=== PATIENT | male | born 1965 | race African-American/Black ===

== ENCOUNTER 2020-01-24 14:58 | Inpatient (IN) | payer OTHER ==
[~2020-01-24] VITALS: Ht 177.8 cm; Wt 90.7 kg
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
[2020-01-24 15:33] LABS: BASOPHILS # (AUTO) 0.1 (0.0-0.1); BASOPHILS % 0.6 % (0.0-1.0); EOSINOPHILS # (AUTO) 0.5 (0.0-0.4); EOSINOPHILS % 2.4 % (0.0-6.0); HEMATOCRIT 25.4 % (38.2-49.6); HEMOGLOBIN 7.4 g/dL (14.0-18.0); LYMPHOCYTES # (AUTO) 2.4 (1.0-3.2); LYMPHOCYTES % 11.5 % (18.0-39.1); MEAN CORPUSCULAR HEMOGLOBIN 27.2 pg (28-32); MEAN CORPUSCULAR HGB CONC 29.1 g/dL (31-35); MEAN CORPUSCULAR VOLUME 93.4 fL (81-99); MONOCYTES # (AUTO) 2.1 (0.2-0.8); MONOCYTES % 9.9 % (4.4-11.3); NEUTROPHILS # (AUTO) 15.7 (2.1-6.9); NEUTROPHILS % 73.9 % (38.7-80.0); PLATELET COUNT 794 x10e3/uL (140-360); RED BLOOD COUNT 2.72 x10e6/uL (4.3-5.7); RED CELL DISTRIBUTION WIDTH 15.4 % (11.7-14.4)
--- NOTE | 2020-01-24 15:49 | NUR ---
Patient unable to provide information because he is unable to speak which is his baseline. Nurse called the dialysis center and spoke to the nurse who had him today and she gave me the name of the facility the patient is from which is [facility] at [phone]. Nurse called [facility] and spoke with the patient's nurse there who informed me that what we are seeing in the patient objectively is his baseline and went on to say that they were not even aware of the patient's appointment at the surgery center today for the dialysis access change. They provided an emergency contact number as well for ronan Rodgers [phone]. Nurse called the emergency contact but did not receive an answer.
[2020-01-24 15:52] LABS: ALBUMIN 2.2 g/dL (3.5-5.0); ALBUMIN/GLOBULIN RATIO 0.5 (0.8-2.0); CALCIUM 10.6 mg/dL (8.4-10.2); CREATININE, SERUM 3.72 mg/dL (0.72-1.25)
--- NOTE | 2020-01-24 16:04 | Diagnostic Imaging Report ---
EXAMINATION: CHEST SINGLE (PORTABLE) INDICATION: Altered mental status COMPARISON: None FINDINGS: LINES/TUBES:Right IJ tunneled hemodialysis catheter terminates in the right atrium. EKG leads overlie the chest. LUNGS:The lungs are moderately inflated. Patchy opacities at the left midlung and both lung bases. There is perihilar fullness and indistinctness of the pulmonary vasculature. PLEURA:No pleural effusion or pneumothorax. MEDIASTINUM:The cardiomediastinal silhouette appears normal in size and shape. BONES/SOFT TISSUES:No acute osseous injury. ABDOMEN:No free air under the diaphragm. IMPRESSION: Central pulmonary vascular congestion and patchy opacities at both lung bases and at the left midlung can be seen with volume overload, however atypical pneumonitis could also have this appearance and should be excluded clinically. Signed by: Alex Lopez MD on 01/24/2020 4:00 PM
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
[2020-01-24] MEDS ORDERED: PIPER-TAZ 3.375 GM 50 ML IV STA (17:00)
[2020-01-24] MEDS ORDERED: VANCOMYCIN 1GM/NS 250 ML 250 ML IV ONE (18:00)
[2020-01-24] MEDS ORDERED: ACETAMINOPHEN 325 MG TAB PO PRN (20:45)
[2020-01-24] MEDS ORDERED: METOPROLOL TARTRATE INJ 1 MG/ML VIAL IV PRN (20:45)
[2020-01-24] MEDS ORDERED: POLYETHYLENE GLYCOL 3350 17 GM PACK PO PRN (20:45)
[2020-01-24] MEDS ORDERED: ONDANSETRON HCL INJ 2MG/ML 2ML 2 MG/ML VIAL IV PRN (20:45)
[2020-01-24] MEDS ORDERED: SOD CHL 0.45%/POT CHL 20MEQ 1,000 ML IV ONE (21:15)
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
[2020-01-24] MEDS: MEROPENEM 1GM 100 ML IV SCH (23:51)
[2020-01-25 05:38] LABS: BASOPHILS # (AUTO) 0.1 (0.0-0.1); BASOPHILS % 0.8 % (0.0-1.0); EOSINOPHILS # (AUTO) 0.6 (0.0-0.4); EOSINOPHILS % 3.5 % (0.0-6.0); HEMATOCRIT 23.7 % (38.2-49.6); LYMPHOCYTES # (AUTO) 3.1 (1.0-3.2); LYMPHOCYTES % 16.7 % (18.0-39.1); MEAN CORPUSCULAR HEMOGLOBIN 26.9 pg (28-32); MEAN CORPUSCULAR HGB CONC 28.7 g/dL (31-35); MEAN CORPUSCULAR VOLUME 93.7 fL (81-99); MONOCYTES # (AUTO) 1.8 (0.2-0.8); MONOCYTES % 9.6 % (4.4-11.3); NEUTROPHILS # (AUTO) 12.4 (2.1-6.9); NEUTROPHILS % 67.6 % (38.7-80.0); PLATELET COUNT 791 x10e3/uL (140-360); RED BLOOD COUNT 2.53 x10e6/uL (4.3-5.7); RED CELL DISTRIBUTION WIDTH 15.6 % (11.7-14.4)
[2020-01-25 06:04] LABS: ALBUMIN 2.1 g/dL (3.5-5.0); ALBUMIN/GLOBULIN RATIO 0.5 (0.8-2.0); ANION GAP 16.5 mmol/L (8-16); CALCIUM 10.5 mg/dL (8.4-10.2); CREATININE, SERUM 4.91 mg/dL (0.72-1.25); POTASSIUM 3.5 mmol/L (3.5-5.1)
[2020-01-25 06:05] LABS: CHOL/HDL RATIO 4.8 (3.9-4.7); PHOSPHORUS 3.2 MG/DL (2.3-4.7)
[2020-01-25 06:20] LABS: HEMOGLOBIN 6.8 g/dL (14.0-18.0)
[2020-01-25 06:25] LABS: THYROID STIMULATING HORMONE 1.198 uIU/mL (0.350-4.940)
--- NOTE | 2020-01-25 07:02 | NUR ---
Report received from BIRD Gray
[2020-01-25 08:29] LABS: ANISOCYTOSIS SLIGHT; EOSINOPHILS % (MANUAL) 1 % (0-7); LYMPHOCYTES % (MANUAL) 16 % (19-48); MONOCYTES % (MANUAL) 7 % (3.4-9.0); NEUTROPHILS % (MANUAL) 76 % (40-74); POLYCHROMASIA FEW
[2020-01-25 08:30] LABS: HYPOCHROMASIA SLIGHT; PLATELET ESTIMATE MODERATELY INCREASED; PLATELET MORPHOLOGY COMMENT FEW EDTA CLUMPING; RBC MORPHOLOGY COMMENT ABNORMAL
[2020-01-25 08:31] LABS: POIKILOCYTOSIS SLIGHT
--- NOTE | 2020-01-25 09:03 | NUR ---
CALLED FOR UPDATE AND RICHARD REEVESSPOKE WITH .
[2020-01-25] MEDS: FAMOTIDINE 20 MG/2 ML VIAL IV SCH ×2 (09:50→17:29)
[2020-01-25] MEDS: DOCUSATE SODIUM 100 MG CAP PO SCH ×2 (09:50→17:29)
[2020-01-25] MEDS: MEROPENEM 1GM 100 ML IV SCH ×2 (11:47→22:50)
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
--- NOTE | 2020-01-25 17:11 | Diagnostic Imaging Report ---
EXAMINATION: Renal ultrasound. CLINICAL HISTORY :Acute renal failure COMPARISON: <None available.> TECHNIQUE: Grayscale and color Doppler evaluation of the kidneys and bladder was performed in transverse and longitudinal planes. DISCUSSION: RIGHT KIDNEY: The right kidney measures 7 cm in length and shows increased echogenicity. No hydronephrosis, shadowing calculi or solid mass lesions. LEFT KIDNEY: The left kidney measures 7.7 cm in length and shows increased echogenicity. No hydronephrosis, shadowing calculi or solid mass lesions. BLADDER: Unremarkable. IMPRESSION: 1. Atrophic kidneys with increased echogenicity secondary to chronic medical renal disease. No obstruction. Signed by: Dr. Vlad Cabrera M.D. on 01/25/2020 5:07 PM
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
[2020-01-25 19:30] VITALS: BP 145/71
[2020-01-25 20:00] VITALS: BP 145/71
[2020-01-25] MEDS ORDERED: FAMOTIDINE20 MG PO (20:05)
[2020-01-25] MEDS ORDERED: HYDRALAZINE HCL10 MG PO (20:05)
[2020-01-25] MEDS ORDERED: CLOPIDOGREL75 MG PO (20:05)
[2020-01-25] MEDS ORDERED: CALCIUM CARBON500 MG PO (20:05)
[2020-01-25] MEDS ORDERED: PREDNISONE20 MG PO (20:05)
[2020-01-25] MEDS ORDERED: CARVEDILOL12.5 MG PO (20:05)
[2020-01-25] MEDS ORDERED: POLYETHYLENE GL17 GM PO (20:05)
[2020-01-25] MEDS ORDERED: ALPRAZOLAM0.5 MG PO (20:05)
[2020-01-25] MEDS ORDERED: CALCIUM ACETAT667 M1 PO (20:05)
[2020-01-25] MEDS ORDERED: XIFAXAN550 MG PO (20:05)
[2020-01-25] MEDS ORDERED: ULTRAM50 MG PO (20:05)
[2020-01-25] MEDS ORDERED: RISPERIDONE0.5 MG PO (20:05)
[2020-01-25] MEDS ORDERED: NIFEDIPINE ER60 M1 PO (20:05)
[2020-01-25] MEDS ORDERED: LACTULOSE20 GM/30 M PO (20:05)
[2020-01-25 22:27] VITALS: BP 145/71
[2020-01-25] MEDS ORDERED: SODIUM CHLORIDE 0.9% 250ML 250 ML ONE (22:47)
[2020-01-26] VITALS (9 sets, daily range): BP systolic 113–149; BP diastolic 72–90
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
[2020-01-26 05:00] LABS: BASOPHILS # (AUTO) 0.1 (0.0-0.1); BASOPHILS % 0.8 % (0.0-1.0); EOSINOPHILS # (AUTO) 0.6 (0.0-0.4); EOSINOPHILS % 3.5 % (0.0-6.0); HEMATOCRIT 24.1 % (38.2-49.6); LYMPHOCYTES # (AUTO) 2.8 (1.0-3.2); LYMPHOCYTES % 16.9 % (18.0-39.1); MEAN CORPUSCULAR HEMOGLOBIN 26.9 pg (28-32); MEAN CORPUSCULAR VOLUME 92.7 fL (81-99); MONOCYTES % 11.8 % (4.4-11.3); NEUTROPHILS # (AUTO) 10.9 (2.1-6.9); NEUTROPHILS % 65.1 % (38.7-80.0); PLATELET COUNT 951 x10e3/uL (140-360); RED CELL DISTRIBUTION WIDTH 15.6 % (11.7-14.4)
[2020-01-26 05:13] LABS: ANION GAP 17.3 mmol/L (8-16); CALCIUM 10.3 mg/dL (8.4-10.2); CREATININE, SERUM 6.85 mg/dL (0.72-1.25); POTASSIUM 3.3 mmol/L (3.5-5.1)
--- NOTE | 2020-01-26 06:11 | NUR ---
SPOKE WITH JESIKA BRENNAN, PATIENT'S SISTER AND NEXT OF KIN. STATED THAT PATIENT DID NOT GET DIALYSIS ACCESS CHANGED AT SURGERY CENTER WEDNESDAY. STATED THAT THIS PROCEDURE HAS BEEN DELAYED TWICE DUE TO ELEVATED WBCS. PATIENT DOES STILL RECEIVE DIALYSIS THROUGH THE TUNNELED CATHETER IN R CHEST. STATED PATIENT HAS HAD PNEUMONIA PREVIOUSLY, UNSURE IF PATIENT RECOVERED OR IF THIS PNEUMONIA IS THE SAME HE HAS HAD.
--- NOTE | 2020-01-26 07:10 | NUR ---
RCD PT AT BED PT IS NOT ALERT AND NOT ORIENTED RESTING ON BED IV PATENT BY SALINE FLUSH CHANGED POSITION ON RT SIDE BED LOW AND LOCKED CALL LIGHT IN REACH
[2020-01-26] MEDS: DOCUSATE SODIUM 100 MG CAP PO SCH ×2 (09:00→16:27)
[2020-01-26] MEDS: FAMOTIDINE 20 MG/2 ML VIAL IV SCH ×2 (09:00→16:27)
[2020-01-26 09:53] LABS: HYPOCHROMASIA SLIGHT
[2020-01-26 09:54] LABS: PLATELET ESTIMATE MARKEDLY INCREASED
[2020-01-26 09:55] LABS: PLATELET MORPHOLOGY COMMENT FEW LARGE
[2020-01-26] MEDS: MEROPENEM 1GM 100 ML IV SCH ×2 (10:48→22:10)
--- NOTE | 2020-01-26 13:20 | NUR ---
HARDY AND TALKED TO GEE IN [facility] REGARDING HEMODIALYSIS SHE SAID THEY WILL ARRANGE SOME ONE TODAY
--- NOTE | 2020-01-26 13:25 | NUR ---
PAGED HIS SISTER TO GET THE TELEPHONE CONSENT FOR DIALYSIS
--- NOTE | 2020-01-26 14:35 | NUR ---
SPEECH THERAPIST TALKED PRINCE BARNES REGARDING BED SIDE SPEECH REPORT GOT THE ORDER TO MBS
[2020-01-26 14:53] LABS: INR 0.97; PROTHROMBIN TIME 13.4 seconds (11.9-14.5)
--- NOTE | 2020-01-26 15:00 | NUR ---
BED SIDE SPEECH AND MBS DONE HE PASSED BOTH TEST
--- NOTE | 2020-01-26 16:05 | Progress Note ---
DATE: Nephrology Progress Note SUBJECTIVE: The patient had a right tunneled dialysis catheter in place in the chest wall. The patient was chronically on end-stage renal disease, on dialysis. The patient will receive dialysis today and after further discussion with the nursing staff, the patient was going Wednesday, Wednesday, Wednesday, which I was not aware of yesterday. PHYSICAL EXAMINATION: VITAL SIGNS: Temperature is 98.6, pulse 93, respiratory rate is 20, blood pressure 135/72, and pulse ox 98% on room air. GENERAL: Not in acute distress. He is not responsive at baseline. CARDIOVASCULAR: Positive S1 and S2. No murmurs, rubs, or gallops appreciated. ABDOMEN: Soft, nondistended, and nontender to palpation. Bowel sounds present. MUSCULOSKELETAL: Unable to assess. PULMONARY: Clear to auscultation bilaterally. No wheezing, no rales, no rhonchi, no crackles appreciated. EXTREMITIES: No edema. Good range of motion throughout. LABORATORY FINDINGS: Show white count was 16.7, hemoglobin was 7, hematocrit was 24, and platelets of 951. Coagulation; PT and INR are pending. Chemistry; sodium is 143, potassium 3.3, chloride 101, bicarb 20, anion gap of 17, BUN is 26, and creatinine is 6.85. Hemoglobin A1c was 4.2. Calcium was 10.3. The albumin is 2.1. Corrected calcium is approximately 12. Coronavirus is pending. MICROBIOLOGY: Blood cultures no growth to date. DIAGNOSTIC STUDIES: Renal ultrasound shows significant atrophy in the right and left kidney. IMPRESSION: 1. End-stage renal disease, on hemodialysis, Wednesday, Wednesday, Wednesday. 2. Anemia of end-stage renal disease. 3. Secondary hyperparathyroidism. 4. Severe sepsis, concerns for underlying aspiration pneumonia. PLAN: At this time from a renal standpoint, the patient will receive dialysis today. I did notify the nursing staff to call the dialysis nursing staff for orders. The patient will likely end up on a 3K, 2 calcium bath. Ultrafiltration approximately 2 to 3 L, duration 3 hours. We will continue with same plan of care and monitor with the rest of the team. We can potentially get blood transfusion during HD today once it is available. MD TOMMY Dixon/MITCHELLL /[id number]
[2020-01-26] MEDS ORDERED: SODIUM CHLORIDE 0.9% 1000ML 2,000 ML ONE (17:22)
[2020-01-26] MEDS ORDERED: HEPARIN SOD (PORCINE) 1000 UNIT/ML SDV IV PRN (18:00)
[2020-01-26] MEDS ORDERED: SODIUM CHLORIDE 0.9% 1000ML 2,000 ML IV PRN (18:00)
--- NOTE | 2020-01-26 18:00 | NUR ---
PATIENT RESTLESS AND TRYING TO PULL OUT THE DIALYSIS CATHETER PAGE AND NOTIFIED PRINCE BARNES GOT NEW ORDERS
[2020-01-26] MEDS: LORAZEPAM INJ 2 MG/ML VIAL IV ONE ×2 (18:25→18:40)
--- NOTE | 2020-01-26 18:45 | NUR ---
AC TO DR GREENBERG STOPPED DIALYSIS BECAUSE PT RESTLESS
--- NOTE | 2020-01-26 18:51 | NUR ---
PT RESTING ON BED BED SIDE REPORT GIVEN TO ONCOMING NURSE
--- NOTE | 2020-01-26 19:20 | NUR ---
Patient visited in room. Pt is alert and oriented x0 at this time. Pt is aphasic and only moans when being turned in bed. Pt has contracted bilateral hands and keeps attempting to remove dressing on dialysis catheter on right upper chest. Matthew (Dialysis) nurse has informed that he cannot do dialysis tonight due to patient's confused state. Matthew has spoken with Dr. Rodas and received authorization to do dialysis tomorrow (01/27/20) instead. [facility] was called by Matthew to re-schedule dialysis.
--- NOTE | 2020-01-26 19:30 | NUR ---
Nurse (Nicko) spoke with Papa Luna ([employer] MANAGER for Dr. Win) on the unit and informed of patient's confused behavior and that patient attempts to pull out dialysis catheter. Papa authorized Sitter care for patient. Real Estate Utilization Officer (Kimmy) and CN (Mckayla) aware.
--- NOTE | 2020-01-26 19:45 | NUR ---
Suzette REED) was selected by HS to stay with patient in room for 1:1 sitter care.
--- NOTE | 2020-01-26 22:19 | NUR ---
Pt given bed bath. Diaper changed due to bowel movement. Linens were changed too.
[2020-01-27] VITALS (9 sets, daily range): BP systolic 107–155; BP diastolic 63–93
[2020-01-27 06:04] LABS: BASOPHILS # (AUTO) 0.1 (0.0-0.1); BASOPHILS % 0.8 % (0.0-1.0); EOSINOPHILS # (AUTO) 0.5 (0.0-0.4); LYMPHOCYTES # (AUTO) 2.7 (1.0-3.2); MEAN CORPUSCULAR HEMOGLOBIN 27.3 pg (28-32); MEAN CORPUSCULAR HGB CONC 29.2 g/dL (31-35); MEAN CORPUSCULAR VOLUME 93.4 fL (81-99); MONOCYTES # (AUTO) 2.2 (0.2-0.8); MONOCYTES % 13.3 % (4.4-11.3); NEUTROPHILS % 65.8 % (38.7-80.0); PLATELET COUNT 1021 x10e3/uL (140-360); RED BLOOD COUNT 2.42 x10e6/uL (4.3-5.7); RED CELL DISTRIBUTION WIDTH 15.4 % (11.7-14.4)
[2020-01-27 06:25] LABS: HEMATOCRIT 22.6 % (38.2-49.6); HEMOGLOBIN 6.6 g/dL (14.0-18.0)
[2020-01-27 06:31] LABS: ANION GAP 17.5 mmol/L (8-16); CALCIUM 10.1 mg/dL (8.4-10.2); CREATININE, SERUM 8.24 mg/dL (0.72-1.25); POTASSIUM 3.5 mmol/L (3.5-5.1)
--- NOTE | 2020-01-27 06:40 | NUR ---
Called and informed Rhonda Chowdhury (CAMERON) about Hgb of 6.0 this morning. Rhonda aware and suggested to notify renal MD about Hgb.
--- NOTE | 2020-01-27 07:00 | NUR ---
RCD PT AT BED PT IS NOT ALERT AND NOT ORIENTED 1;1 SITTER WITH PATIENT RESTING ON BED IV PATENT BY SALINE FLUSH CHANGED POSITION ON RT SIDE BED LOW AND LOCKED CALL LIGHT IN REACH
--- NOTE | 2020-01-27 07:14 | NUR ---
PAGED DR GREENBERG AND NOTIFIED THE HH LEVEL GOT THE ORDER 2 UNITS TRANSFUSION WITH DIALYSIS
[2020-01-27] MEDS ORDERED: SODIUM CHLORIDE 0.9% 250ML 250 ML IV ONE (07:15)
[2020-01-27] MEDS: DOCUSATE SODIUM 100 MG CAP PO SCH ×2 (09:00→16:52)
[2020-01-27] MEDS: FAMOTIDINE 20 MG/2 ML VIAL IV SCH ×2 (09:00→16:52)
[2020-01-27] MEDS: MEROPENEM 1GM 100 ML IV SCH ×2 (11:00→23:33)
--- NOTE | 2020-01-27 12:30 | NUR ---
2 UNITS OF BLOOD TRANSFUSED DURING DIALYSIS
--- NOTE | 2020-01-27 13:31 | NUR ---
DIALYSIS DONE AND REMOVED 1.8 LTRS
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
--- NOTE | 2020-01-27 16:50 | Progress Note ---
DATE: 01/27/2020 Nephrology Progress Note SUBJECTIVE: The patient had HD today. No overnight events. OBJECTIVE: VITAL SIGNS: Temperature 99, pulse 92, respiratory rate 20, blood pressure 115/63, pulse ox 93% on room air. GENERAL: He is not in acute distress. He is not oriented. Does not speak at all. PULMONARY: Clear to auscultation bilaterally. No wheezing, rales, or rhonchi. No crackles appreciated. CARDIOVASCULAR: Positive S1, S2. No murmurs, rubs, or gallops appreciated. ABDOMEN: Soft, nondistended, and nontender to palpation. Bowel sounds present. MUSCULOSKELETAL: Unable to assess. NEUROLOGIC: Unable to assess. SKIN: Intact, warm to touch. Good cap refill. PSYCHIATRIC: He is at his baseline. He is demented and does not speak. EXTREMITIES: No edema appreciated. LABORATORY FINDINGS: White count was 16.7, hemoglobin 6.6, hematocrit 22.6, platelets of 1021. Chemistry; sodium 140, potassium 3.5, chloride 101, bicarb 25, anion gap of 17, BUN is 33, creatinine is 8.2, and glucose is 74. Blood cultures, no growth. IMPRESSION: 1. End-stage renal disease, on hemodialysis, Krqthc-Ntutkvezz-Gibrad. 2. Anemia of end-stage renal disease. 3. Secondary hyperparathyroidism. 4. Severe sepsis, concerns for underlying aspiration pneumonia. PLAN: At this time, the patient did not have dialysis yesterday, but will get dialysis today in which he was already completed. Two units of packed RBCs have been ordered. 3K bath, 2 calcium bath due to elevated calcium. We will monitor very closely. Blood transfusion given today. MD TOMMY Dixon/MODL /[id number]
--- NOTE | 2020-01-27 18:47 | NUR ---
PT RESTING ON BED 1;1 SITTER WITH PATIENT BED SIDE REPORT GIVEN TO ONCOMING NURSE
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
[2020-01-27] MEDS ORDERED: HEPARIN SOD (PORCINE) 1000 UNIT/ML SDV IV PRN (19:45)
[2020-01-27] MEDS ORDERED: SODIUM CHLORIDE 0.9% 1000ML 2,000 ML IV PRN (19:45)
--- NOTE | 2020-01-27 20:05 | NUR ---
PATIENT RESTING IN BED IN STABLE CONDITION, NO SIGNS OF DISTRESS NOTED. 1:1 SITTER IS AT BEDSIDE AND PATIENT WAS TURNED. BED IS IN LOWEST POSITION, BOTH SIDE RAILS ARE UP, WILL CONTINUE TO MONITOR.
[2020-01-28] VITALS (8 sets, daily range): BP systolic 93–140; BP diastolic 72–84
[2020-01-28] MEDS: TEMAZEPAM 15 MG CAP PO PRN ×2 (02:41→23:30)
--- NOTE | 2020-01-28 03:36 | NUR ---
WHEN SITTER STARTED VITALS, PATIENT'S SATURATION WAS LOW AND WAS PUT ON NASAL CANNULA AT 3 LITERS. PATIENTS O2 SAT NOW AT 100%, CONTINUING TO MONITOR.
--- NOTE | 2020-01-28 07:00 | NUR ---
RCD PT AT BED PT IS NOT ALERT AND NOT ORIENTED 1;1 SITTER WITH PATIENT RESTING ON BED NO IV ACCESS FOR THE PT PT PULL THE IV OUT IV CHANGED POSITION ON RT SIDE BED LOW AND LOCKED CALL LIGHT IN REACH
--- NOTE | 2020-01-28 07:30 | NUR ---
charge nurse and er nurse tried to start iv line they cannot make it
--- NOTE | 2020-01-28 07:45 | NUR ---
NOTIFIED PRINCE BARNES TO THE IV PROBLEM HE SAID NOTIFY DR GREENBERG SINCE HE IS DIALYSIS PT
[2020-01-28 07:47] LABS: HEMATOCRIT 33.9 % (38.2-49.6); HEMOGLOBIN 10.4 g/dL (14.0-18.0)
--- NOTE | 2020-01-28 07:50 | NUR ---
PAGED AND NOTIFIED DR GREENBERG GOT THE ORDER FOR CENTRAL LINE
[2020-01-28] MEDS: FAMOTIDINE 20 MG/2 ML VIAL IV SCH ×2 (09:00→16:57)
[2020-01-28] MEDS: DOCUSATE SODIUM 100 MG CAP PO SCH ×2 (09:00→16:57)
--- NOTE | 2020-01-28 09:30 | NUR ---
GOT THE TELEPHONE CONSENT FOR THE CENTRAL LINE FROM HIS SISTER JESIKA BRENNAN
[2020-01-28] MEDS: MEROPENEM 1GM 100 ML IV SCH ×2 (11:00→22:55)
--- NOTE | 2020-01-28 11:21 | NUR ---
PT WENT TO PROCEDURE IN SAFE CONDITION
--- NOTE | 2020-01-28 12:25 | NUR ---
PT BACK ,THEY CANNOT MAKE THE LINE PLACEMENT
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
--- NOTE | 2020-01-28 12:50 | NUR ---
PAGED DR GREENBERG AND NOTIFIED THEY UNABLE TO MAKE THE CENTRAL LINE PLACEMENT GOT THE NEW ORDER TO MIDLINE PLACEMENT
--- NOTE | 2020-01-28 13:00 | NUR ---
PAGED AND NOTIFIED HIS SISTER JESIKA BRENNAN REGARDING MIDLINE PLACEMENT
--- NOTE | 2020-01-28 14:08 | Progress Note ---
DATE: SUBJECTIVE: Mr. Maxwell is stable. There are no new complaints. PHYSICAL EXAMINATION: GENERAL: He is currently alert. VITAL SIGNS: Stable, afebrile. HEENT: He is not icteric. NECK: Supple. CHEST: Clear. HEART: S1 and S2. ABDOMEN: Soft. IMPRESSION AND PLAN: 1. Renal failure, sepsis on admission, seems significantly better. Blood cultures are negative. White count remains elevated at 16.7. 2. Anemia status post transfusion. Recommendation to recheck CBC. Recheck Chem panel. 3. Chronic kidney disease. CT of abdomen and pelvis with oral contrast only is still pending. MD ANGELICA Chamberlain/MODL /[id number]
--- NOTE | 2020-01-28 17:00 | NUR ---
PT WAITING FOR MIDLINE PLACEMENT ,TALKED TO RADIOLOGY THEY SAID THE TEAM COMING TO DO THAT
--- NOTE | 2020-01-28 18:39 | NUR ---
PT STILL AGITATED 1;1 SITTER WITH PATIENT AND WAITING FOR MIDLINE PLACEMENT
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
--- NOTE | 2020-01-28 19:17 | NUR ---
PICC TEAM IS HERE TO PLACE MIDLINE ON PATIENT.
--- NOTE | 2020-01-28 19:29 | NUR ---
PICC NURSE INFORMED ME THAT THE PATIENT'S MIDLINE WAS SUCCESSFULLY PLACED AND READY TO USE.
--- NOTE | 2020-01-28 19:54 | Progress Note ---
DATE: 01/28/2020 Nephrology Progress Note SUBJECTIVE: The patient is at baseline with no changes. No overnight events. OBJECTIVE: VITAL SIGNS: Temperature 98.3, pulse 108, respiratory rate is 19, blood pressure 140/83, O2 saturation 100% on nasal can 2 L. GENERAL: He is at baseline, not responsive. PULMONARY: Clear to auscultation bilaterally. No wheezing, rales, or rhonchi. No crackles appreciated. CARDIOVASCULAR: Positive S1, S2. No murmurs or gallops appreciated. ABDOMEN: Soft, nondistended, tender to palpation. Bowel sounds present. MUSCULOSKELETAL: Unable to assess. He is not very responsive. NEUROLOGICAL: Not very responsive. SKIN: Intact. Warm to touch. Good cap refill. EXTREMITIES: No edema. Good range of motion throughout. LABORATORY DATA: Show hemoglobin 10.4, hematocrit 33.9. Chemistry; sodium 140, potassium 3.5, chloride 101, bicarb 25, anion gap of 17, BUN 33, creatinine is 8.2. Serology, coronavirus not detected. Microbiology, blood cultures no growth. IMAGING STUDIES: None. IMPRESSION: 1. End-stage renal disease, on hemodialysis Wednesday, Wednesday, Wednesday. 2. Anemia of end-stage renal disease. 3. Secondary hyperparathyroidism. 4. Severe sepsis, concern for underlying aspiration pneumonia. PLAN: At this time, he will be scheduled for dialysis tomorrow. A primary team wants some IV access, which we attempted to put a central line in bilateral neck as well as the lower extremities, but IR was unsuccessful and recommended a midline. Since there was no IV access at this time, the patient is on IV antibiotics and others. We agreed to go ahead and put a midline at this time. The patient's overall quality of life is very poor as well. Prognosis is very poor. We will continue same plan of care and monitor very closely. MD TOMMY Dixon/DIVINA /[id number]
--- NOTE | 2020-01-28 20:05 | NUR ---
PATIENT RESTING IN BED IN STABLE CONDITION, NO SIGNS OF DISTRESS NOTED. 1:1 SITTER IS AT BEDSIDE AND PATIENT WAS TURNED. MIDLINE IV ACCESS IS INTACT AND PATENT. BED IS IN LOWEST POSITION, BOTH SIDE RAILS ARE UP, WILL CONTINUE TO MONITOR.
[2020-01-28] MEDS ORDERED: IOPAMIDOL 370 MG/ML 200 ML INFUS..BTL INJ ONE (20:20)
[2020-01-28] MEDS ORDERED: SODIUM CHLORIDE 0.9% 50ML 50 ML ONE (20:20)
--- NOTE | 2020-01-28 20:25 | NUR ---
PATIENT TAKEN FOR CT SCAN OF ABDOMEN AND PELVIS.
--- NOTE | 2020-01-28 21:35 | Diagnostic Imaging Report ---
EXAM: CT Abdomen and Pelvis WITH contrast INDICATION: Abdominal pain. Concern for infection. COMPARISON: None. TECHNIQUE: Abdomen and pelvis were scanned utilizing a multidetector helical scanner from the lung base to the pubic symphysis after administration of IV contrast. Coronal and sagittal reformations were obtained. Routine protocol was performed. Scan was performed when during portal venous phase. IV CONTRAST: 100 cc Isovue-370 ORAL CONTRAST: Water RADIATION DOSE: Total DLP: 797.66 mGy*cm Estimated effective dose: (DLP x 0.015 x size factor) mSv COMPLICATIONS: None FINDINGS: LINES and TUBES: None. LOWER THORAX: Posterior bibasilar dependent atelectasis and fibrotic changes with mild bronchiectasis. Coronary artery calcifications. HEPATOBILIARY: No focal hepatic lesions. No biliary ductal dilation. GALLBLADDER: No radio-opaque stones or sludge. No wall thickening. SPLEEN: No splenomegaly. Punctate calcified granuloma. PANCREAS: No focal masses or ductal dilatation. ADRENALS: No] adrenal nodules. 1.2 cm well-defined low-attenuation nodule in the left adrenal gland is indeterminate. KIDNEYS/URETERS: Bilateral renal atrophy. Kidneys enhance symmetrically. No hydronephrosis. No cystic or solid mass lesions. No stones. GI TRACT: Artifact due to the presence of residual barium within the small bowel and colon (from recent modified barium swallow examination. No abnormal distention, wall thickening, or evidence of bowel obstruction. Appendix is normal. PELVIC ORGANS/BLADDER: Mild diffuse wall thickening of the urinary bladder is likely related to underdistention.. LYMPH NODES: No lymphadenopathy. VESSELS: There is moderate atherosclerotic disease in the aorta and major arterial branches. PERITONEUM / RETROPERITONEUM: No free air or fluid. BONES: Unremarkable. SOFT TISSUES: Small fat-containing umbilical hernia. IMPRESSION: 1. No evidence of intra-abdominal infection as per clinical query. No acute abdominal pelvic abnormality. 1. 1.2 cm nodule in the left adrenal gland statistically most likely to represent a lipid poor adenoma, however, could be further characterized with non-emergent CT abdomen adrenal mass protocol without and with contrast. 2. Bilateral renal atrophy. Signed by: Dr. Lakeisha Gallego M.D. on 01/28/2020 9:32 PM
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
[2020-01-29 04:00] VITALS: BP 129/79
[2020-01-29 05:41] LABS: BASOPHILS # (AUTO) 0.1 (0.0-0.1); BASOPHILS % 0.9 % (0.0-1.0); EOSINOPHILS # (AUTO) 0.7 (0.0-0.4); EOSINOPHILS % 4.8 % (0.0-6.0); HEMATOCRIT 27.1 % (38.2-49.6); HEMOGLOBIN 8.4 g/dL (14.0-18.0); LYMPHOCYTES # (AUTO) 3.2 (1.0-3.2); LYMPHOCYTES % 21.1 % (18.0-39.1); MEAN CORPUSCULAR HEMOGLOBIN 27.6 pg (28-32); MEAN CORPUSCULAR VOLUME 89.1 fL (81-99); MONOCYTES # (AUTO) 1.8 (0.2-0.8); MONOCYTES % 12.2 % (4.4-11.3); NEUTROPHILS # (AUTO) 8.9 (2.1-6.9); NEUTROPHILS % 59.5 % (38.7-80.0); PLATELET COUNT 747 x10e3/uL (140-360); RED BLOOD COUNT 3.04 x10e6/uL (4.3-5.7); RED CELL DISTRIBUTION WIDTH 15.5 % (11.7-14.4)
[2020-01-29 06:14] LABS: ANION GAP 16.4 mmol/L (8-16); CALCIUM 9.6 mg/dL (8.4-10.2); CREATININE, SERUM 7.6 mg/dL (0.72-1.25); POTASSIUM 3.4 mmol/L (3.5-5.1)
[2020-01-29 07:35] LABS: EOSINOPHILS % (MANUAL) 5 % (0-7); LYMPHOCYTES % (MANUAL) 22 % (19-48); MONOCYTES % (MANUAL) 8 % (3.4-9.0); NEUTROPHILS % (MANUAL) 65 % (40-74)
[2020-01-29 07:37] LABS: ANISOCYTOSIS SLIGHT; PLATELET ESTIMATE MARKEDLY INCREASED; PLATELET MORPHOLOGY COMMENT FEW EDTA CLUMPING; RBC MORPHOLOGY COMMENT NORMAL
[2020-01-29 08:02] VITALS: BP 129/79
[2020-01-29] MEDS: FAMOTIDINE 20 MG/2 ML VIAL IV SCH ×2 (09:15→17:37)
[2020-01-29] MEDS: DOCUSATE SODIUM 100 MG CAP PO SCH ×2 (09:15→17:37)
--- NOTE | 2020-01-29 10:05 | Diagnostic Imaging Report ---
PROCEDURE: X-RAY MODIFIED BARIUM SWALLOW COMPARISON: None. INDICATION: Aspiration Radiation Details: Fluoroscopy time: 1.1 minutes Cumulative dose: 10.7 mGy DISCUSSION: Fluoroscopic examination was performed in conjunction with speech pathology during swallowing a variety of thin and thick liquid consistencies. Provided images demonstrate no laryngeal penetration or aspiration. CONCLUSION: Modified barium swallow demonstrating no laryngeal penetration or aspiration. Please refer to the speech pathology report for further details. Signed by: Alex Lopez MD on 01/29/2020 10:01 AM
--- NOTE | 2020-01-29 10:23 | NUR ---
Dialysis nurse is reporting that patient is restless and having a hard time while trying to dialysis. [employer]CT PSYCHOLOGY FACULTY MEMBER is here making rounds. New orders received.
[2020-01-29] MEDS ORDERED: LORAZEPAM INJ 2 MG/ML VIAL IV ONE (10:30)
--- NOTE | 2020-01-29 11:45 | NUR ---
Patient was given IV ativan earlier due to restlessness during dialysis. The patient appears to be resting a little better, the dialysis nurse reports that the patient still gets restless at times but is " a little better". According to the patient's sister, Latosha, she says it is normal for him to be restless during dialysis and is usually given something prior to dialysis to help.
[2020-01-29 12:02] VITALS: BP 122/94
[2020-01-29] MEDS: MEROPENEM 1GM 100 ML IV SCH ×2 (13:00→23:00)
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
[2020-01-29 16:06] VITALS: BP 117/79
--- NOTE | 2020-01-29 17:44 | Progress Note ---
DATE: SUBJECTIVE: Mr. Maxwell is slightly confused, but comfortable. OBJECTIVE: VITAL SIGNS: Stable, currently afebrile. HEENT: He is not icteric. NECK: Supple. CHEST: Clear. HEART: S1-S2. No murmurs. ABDOMEN: Soft. Bowel sounds present. EXTREMITIES: No edema. SKIN: No rash. IMPRESSION: 1. End-stage renal disease, on hemodialysis. 2. Anemia. 3. Aspiration pneumonia. Clinically, he looks really good. He is currently on meropenem, but can finish 5 days of treatment. Discharge planning once he is cleared from Internal Medicine. MD ANGELICA Chamberlain/DIVINA /[id number]
[2020-01-29 20:00] VITALS: BP 142/85
[2020-01-29] MEDS ORDERED: POLYETHYLENE GLYCOL 3350 17 GM PACK PO PRN (20:00)
[2020-01-29] MEDS ORDERED: TRAMADOL HCL 50 MG TAB PO PRN (20:00)
[2020-01-29] MEDS ORDERED: ALPRAZOLAM 0.5 MG TAB PO PRN (20:00)
[2020-01-29 21:00] VITALS: BP 142/85
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
[2020-01-29] MEDS: LACTULOSE SYRUP 20 GM/30 ML UDC PO SCH (21:58)
[2020-01-29] MEDS: RISPERIDONE 0.5 MG TAB PO SCH (21:58)
[2020-01-30] VITALS (7 sets, daily range): BP systolic 93–153; BP diastolic 59–87
--- NOTE | 2020-01-30 00:05 | Progress Note ---
DATE: 01/29/2020 Nephrology Progress Note SUBJECTIVE: The patient had dialysis today, but the circuit clotted in which the blood had to be returned. He did receive quite a bit of dialysis today according to the dialysis nurse. PHYSICAL EXAMINATION: VITAL SIGNS: Temperature 98.7, pulse 101, respiratory rate 18, blood pressure 142/85, pulse ox 100% on 2 L nasal cannula. GENERAL: He is awake, but not alert or oriented. CARDIOVASCULAR: Positive S1 and S2. No murmurs, rubs, or gallops appreciated. ABDOMEN: Soft, nondistended, nontender to palpation. Bowel sounds present. MUSCULOSKELETAL: Unable to assess. SKIN: Intact. Warm to touch. Good cap refill. PSYCHIATRIC: Normal affect and mood. EXTREMITIES: No edema. Good range of motion throughout. LABORATORY FINDINGS: White count 14.9, hemoglobin 8.4, hematocrit 27.1, platelets of 747,000. Chemistry; sodium 136, potassium 3.4, chloride 98, bicarbonate 25, anion gap of 16, BUN is 27, creatinine 7.6, glucose is 80. Montague virus not detected. Microbiology, no growth. DIAGNOSTIC STUDIES: CT abdomen and pelvis, no acute intra-abdominal infection. IMPRESSION: 1. End-stage renal disease, on hemodialysis Wednesday, Wednesday, and Wednesday. 2. Anemia of end-stage renal disease. 3. Secondary hyperparathyroidism. 4. Severe sepsis, concerns for underlying aspiration pneumonia. PLAN: At this time, he had dialysis today, but he did clot the circuit in which the blood was returned, he is currently doing well. Repeat labs in the morning. We will likely just delay dialysis until Wednesday if his electrolytes and volume status is good. He is currently doing very well with no other issues. Continue with a renal diet. Prognosis is very poor. MD TOMMY Dixon/MODL /[id number]
--- NOTE | 2020-01-30 07:00 | NUR ---
Patient resting comfortably. No acute distress noted. Shift report given to oncoming nurse for continuity of care.
[2020-01-30] MEDS: BALSAM PERU/CASTOR OIL 60 GM OINT...G. TP SCH (09:00)
[2020-01-30] MEDS: DOCUSATE SODIUM 100 MG CAP PO SCH ×2 (09:32→17:43)
[2020-01-30] MEDS: CARVEDILOL 12.5 MG TAB PO SCH ×2 (09:32→17:44)
[2020-01-30] MEDS: RIFAXIMIN 550 MG TABLET PO SCH ×2 (09:32→17:44)
[2020-01-30] MEDS: RISPERIDONE 0.5 MG TAB PO SCH ×2 (09:32→17:44)
[2020-01-30] MEDS: FAMOTIDINE 20 MG/2 ML VIAL IV SCH ×2 (09:32→17:44)
[2020-01-30] MEDS: PREDNISONE 20 MG TAB PO SCH ×2 (09:32→17:44)
[2020-01-30] MEDS: LACTULOSE SYRUP 20 GM/30 ML UDC PO SCH ×3 (09:32→17:44)
[2020-01-30] MEDS ORDERED: POTASSIUM CHLORIDE 20 MEQ TAB CR PO STA (10:04)
[2020-01-30 10:53] LABS: BASOPHILS # (AUTO) 0.1 (0.0-0.1); BASOPHILS % 0.7 % (0.0-1.0); EOSINOPHILS # (AUTO) 0.8 (0.0-0.4); EOSINOPHILS % 4.3 % (0.0-6.0); HEMATOCRIT 27.7 % (38.2-49.6); HEMOGLOBIN 8.6 g/dL (14.0-18.0); LYMPHOCYTES # (AUTO) 2.5 (1.0-3.2); LYMPHOCYTES % 14.3 % (18.0-39.1); MEAN CORPUSCULAR HEMOGLOBIN 27.8 pg (28-32); MEAN CORPUSCULAR VOLUME 89.6 fL (81-99); MONOCYTES # (AUTO) 1.7 (0.2-0.8); MONOCYTES % 9.3 % (4.4-11.3); NEUTROPHILS # (AUTO) 12.4 (2.1-6.9); NEUTROPHILS % 69.8 % (38.7-80.0); PLATELET COUNT 712 x10e3/uL (140-360); RED BLOOD COUNT 3.09 x10e6/uL (4.3-5.7); RED CELL DISTRIBUTION WIDTH 15.6 % (11.7-14.4)
[2020-01-30] MEDS: MEROPENEM 1GM 100 ML IV SCH (12:10)
--- NOTE | 2020-01-30 12:26 | NUR ---
CALLED AND LEFT MESSAGE FOR SISTER JESIKA THAT PT IS RETURNING TO FACILITY, CALLED FACILITY AND FAXED CLINICALS TO [phone]
--- NOTE | 2020-01-30 12:27 | NUR ---
PENITENTIARY FACILITY DISCHARGE INFORMATION PATIENT HAS BEEN ACCEPTED TO: JOSE NAME:JOSE ADDRESS:[id number] [facility] [place] ACCEPTING RADIAL ROUTER OPERATOR: ALFREDA SHIELDS ACCEPTING MD:SUHAS QUINTERO ROOM:111A NURSE CALL REPORT TO: [phone] IMM SIGNED AND OBTAINED (if applicable): THE FOLLOWING DOCUMENTS MUST ACCOMPANY PATIENT FOR TRANSFER: COPIED CHART:PACKET
--- NOTE | 2020-01-30 17:07 | NUR ---
Mr. Maxwell is slightly confused, but comfortable. OBJECTIVE: VITAL SIGNS: Stable, currently afebrile. HEENT: He is not icteric. NECK: Supple. CHEST: Clear. HEART: S1-S2. No murmurs. ABDOMEN: Soft. Bowel sounds present. EXTREMITIES: No edema. SKIN: No rash. IMPRESSION: 1. End-stage renal disease, on hemodialysis. 2. Anemia. 3. Aspiration pneumonia. Clinically, he looks really good. He is currently on meropenem, but can finish 5 days of treatment. Discharge planning once he is cleared from Internal Medicine.
[2020-01-30] MEDS: CLOPIDOGREL BISULFATE 75 MG TAB PO SCH (17:44)
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
--- NOTE | 2020-01-30 19:22 | NUR ---
Patient received sitting up in bed. AAO x 1. No signs of pain or respiratory distress. Patient re-positioned to a more comfortable position. Bed locked and in lowest position. Bed rails up x 2. Bed alarm activated. Call light within reach.
--- NOTE | 2020-01-30 20:50 | Consultation ---
DATE OF CONSULTATION: HISTORY OF PRESENT ILLNESS: Mr. Maxwell is doing well. There are no new complaints. This is day #6. REVIEW OF SYSTEMS: Otherwise, unremarkable. HEENT: Negative. PULMONARY: Negative. CARDIAC: Negative. PHYSICAL EXAMINATION: GENERAL: He is currently alert, oriented, does not seem to be in acute distress. VITAL SIGNS: Stable, currently afebrile. HEENT: He is not icteric. NECK: Supple. CHEST: Clear. HEART: S1, S2. ABDOMEN: Soft. IMPRESSION: Pneumonia, aspiration. We will discontinue meropenem. The patient . MD ANGELICA Chamberlain/DIVINA /[id number]
[2020-01-31] VITALS (8 sets, daily range): BP systolic 93–118; BP diastolic 67–80
--- NOTE | 2020-01-31 01:12 | Progress Note ---
DATE: 01/30/2020 Renal Progress Note SUBJECTIVE: The patient is still at baseline with no change. No dialysis today. OBJECTIVE: VITAL SIGNS: Afebrile. Normotensive. Respiratory rate is good. GENERAL: He is at his baseline. He is alert, but he is not oriented. PULMONARY: Clear to auscultation bilaterally. No wheezing, no rales, no rhonchi, no crackles appreciated. CARDIOVASCULAR: Positive S1 and S2. No murmurs, rubs, or gallops appreciated. ABDOMEN: Soft, nondistended, and nontender to palpation. Bowel sounds present. MUSCULOSKELETAL: Unable to assess. NEUROLOGIC: Unable to assess. SKIN: Intact. Warm to touch. Good cap refill. PSYCHIATRIC: Unable to assess. EXTREMITIES: No edema. Good range of motion throughout. LABORATORY DATA: Show white count was 17, hemoglobin 8.6, hematocrit is 27, platelets of 712. Chemistry, reviewed, stable. Creatinine is 7.6 at baseline and calcium is 3.4. Coronavirus not detected. MICROBIOLOGY: Blood cultures, no growth. IMAGING STUDIES: Nothing new. IMPRESSION: 1. End-stage renal disease, on dialysis Wednesday, Wednesday, and Wednesday. 2. Anemia of end-stage renal disease. 3. Secondary hyperparathyroidism. 4. Severe sepsis with underlying leukocytosis, concern for underlying aspiration pneumonia. PLAN: At this time, he does not need dialysis today. He will be scheduled for HD tomorrow. Monitor electrolytes and hemoglobin levels. Continue with phosphate binders and renal diet. Prognosis is significantly poor. We will continue to follow with the rest of consultants. MD TOMMY Dixon/MODL /[id number]
--- NOTE | 2020-01-31 04:25 | NUR ---
Wound treatment performed per MD's orders. Patient tolerated well.
[2020-01-31 05:44] LABS: BASOPHILS # (AUTO) 0.1 (0.0-0.1); BASOPHILS % 0.3 % (0.0-1.0); EOSINOPHILS % 0.1 % (0.0-6.0); HEMATOCRIT 28.1 % (38.2-49.6); HEMOGLOBIN 8.7 g/dL (14.0-18.0); LYMPHOCYTES # (AUTO) 2.3 (1.0-3.2); LYMPHOCYTES % 12.9 % (18.0-39.1); MEAN CORPUSCULAR HEMOGLOBIN 27.7 pg (28-32); MEAN CORPUSCULAR VOLUME 89.5 fL (81-99); MONOCYTES # (AUTO) 1.3 (0.2-0.8); MONOCYTES % 7.3 % (4.4-11.3); NEUTROPHILS # (AUTO) 14.1 (2.1-6.9); NEUTROPHILS % 77.5 % (38.7-80.0); PLATELET COUNT 593 x10e3/uL (140-360); RED BLOOD COUNT 3.14 x10e6/uL (4.3-5.7); RED CELL DISTRIBUTION WIDTH 15.5 % (11.7-14.4)
[2020-01-31 06:30] LABS: ALBUMIN 2.3 g/dL (3.5-5.0); ALBUMIN/GLOBULIN RATIO 0.5 (0.8-2.0); ALKALINE PHOSPHATASE 66 IU/L (40-150); ANION GAP 19.3 mmol/L (8-16); BLOOD UREA NITROGEN 27 mg/dL (7-26); BUN/CREATININE RATIO 3 (6-25); CALCIUM 9.7 mg/dL (8.4-10.2); CARBON DIOXIDE 21 mmol/L (22-29); CHLORIDE 99 mmol/L (98-107); EST GLOMERULAR FILTRATION RATE 9 ML/MIN (60-); GLUCOSE 91 mg/dL (74-118); PHOSPHORUS 4.2 MG/DL (2.3-4.7); POTASSIUM 4.3 mmol/L (3.5-5.1); SODIUM 135 mmol/L (136-145)
[2020-01-31 06:36] LABS: ALANINE AMINOTRANSFERASE < 6 IU/L (0-55)
--- NOTE | 2020-01-31 06:54 | NUR ---
Received bedside shift report from off going nurse. Patient is resting in bed. No acute stress noted. Call light within reach. Bed in the lowest position.
--- NOTE | 2020-01-31 07:00 | NUR ---
Walking rounds done. Shift report given to oncoming nurse .
[2020-01-31] MEDS: CARVEDILOL 12.5 MG TAB PO SCH ×2 (07:38→16:04)
[2020-01-31] MEDS: RIFAXIMIN 550 MG TABLET PO SCH ×2 (07:56→16:05)
[2020-01-31] MEDS: DOCUSATE SODIUM 100 MG CAP PO SCH ×2 (07:56→16:03)
[2020-01-31] MEDS: LACTULOSE SYRUP 20 GM/30 ML UDC PO SCH ×3 (07:56→21:09)
[2020-01-31] MEDS: FAMOTIDINE 20 MG/2 ML VIAL IV SCH ×2 (07:56→16:03)
[2020-01-31] MEDS: PREDNISONE 20 MG TAB PO SCH ×2 (07:56→16:05)
[2020-01-31] MEDS: RISPERIDONE 0.5 MG TAB PO SCH ×2 (07:56→16:05)
--- NOTE | 2020-01-31 08:00 | NUR ---
DIALYSIS NURSE IN ROOM TO START DIALYSIS.
[2020-01-31] MEDS: BALSAM PERU/CASTOR OIL 60 GM OINT...G. TP SCH (09:30)
[2020-01-31] MEDS ORDERED: SODIUM CHLORIDE 0.9% 250ML 500 ML IV PRN (09:45)
[2020-01-31] MEDS ORDERED: ALBUMIN 25% 12.5GM 0.25 GM/ML BTL IV PRN (09:45)
[2020-01-31] MEDS ORDERED: MANNITOL 25% 12.5GM/50 ML VIAL IV PRN (09:45)
--- NOTE | 2020-01-31 11:30 | NUR ---
PATIENT FINISHED HD, 2L REMOVED PER DIALYSIS NURSE.
[2020-01-31] MEDS: CLOPIDOGREL BISULFATE 75 MG TAB PO SCH (11:56)
--- NOTE | 2020-01-31 19:14 | NUR ---
BEDSIDE SHIFT REPORT GIVEN TO ONCOMING NURSE. PATIENT IS RESTING IN BED. NO ACUTE DISTRESS NOTED AT THIS TIME. CALL LIGHT WITHIN REACH. BED IN THE LOWEST POSITION. BED ALARM ON.
--- NOTE | 2020-01-31 19:39 | Progress Note ---
DATE: SUBJECTIVE: Mr. Pedraza is doing about the same. No new complaints. No fever. OBJECTIVE: GENERAL: He is currently alert, oriented. VITAL SIGNS: Stable, afebrile. HEENT: Not icteric, NECK: Supple. CHEST: Clear. HEART: S1, S2. ABDOMEN: Soft. LABORATORY DATA: His white count 18.13, hemoglobin 7. IMPRESSION: 1. Leukocytosis, could be steroid related. Recommend to discontinue the steroid. 2. Aspiration pneumonia, treated. 3. Chronic kidney disease. 4. Continue with supportive care. MD ANGELICA Chamberlain/MODL /[id number]
[2020-02-01] VITALS (8 sets, daily range): BP systolic 95–134; BP diastolic 75–85
--- NOTE | 2020-02-01 00:22 | Progress Note ---
DATE: 01/31/2020 Nephrology Progress Note SUBJECTIVE: The patient was evaluated by me at 12:50 p.m. He is at his baseline. He did receive dialysis today. OBJECTIVE: VITAL SIGNS: Afebrile. Normotensive. Respiratory rate is good. GENERAL: He is at baseline. He does not speak. PULMONARY: Clear to auscultation bilaterally. No wheezing, rales, or rhonchi. No crackles appreciated. CARDIOVASCULAR: Positive S1 and S2. No murmurs, rubs, or gallops appreciated. ABDOMEN: Soft, nondistended, nontender to palpation. Bowel sounds present. MUSCULOSKELETAL: Unable to assess at his baseline. NEUROLOGIC: Unable to assess at his baseline. SKIN: Intact warm to touch. Good cap refill. PSYCHIATRIC: At his baseline. EXTREMITIES: No edema. Good range of motion throughout. LABORATORY DATA: White count was 18, hemoglobin 8.7, hematocrit 28, and platelets of 593. Chemistry review shows sodium 135, potassium 4.3, chloride 99, bicarb 21, anion gap of 19, BUN 27, and creatinine 7.8. MICROBIOLOGY: None. IMAGING STUDIES: None. IMPRESSION: 1. End-stage renal disease, on dialysis MWF. 2. Anemia of end-stage renal disease. 3. Secondary hyperparathyroidism. 4. Severe sepsis with leukocytosis, concern for underlying aspiration pneumonia. PLAN: At this time from a renal standpoint, he did receive dialysis today with a 3K 2.5 calcium. His hemoglobin is stable. Continue with phos binders with his renal diet. We will continue to follow with the consultants. MD TOMMY Dxion/MODL /[id number]
--- NOTE | 2020-02-01 07:00 | NUR ---
Patient resting comfortably. No acute distress noted. Walking rounds done. Shift report given to oncoming nurse regarding patient's status.
[2020-02-01] MEDS: CARVEDILOL 12.5 MG TAB PO SCH (08:52)
[2020-02-01] MEDS: CLOPIDOGREL BISULFATE 75 MG TAB PO SCH (08:53)
[2020-02-01] MEDS: DOCUSATE SODIUM 100 MG CAP PO SCH (08:53)
[2020-02-01] MEDS: RISPERIDONE 0.5 MG TAB PO SCH (08:53)
[2020-02-01] MEDS: RIFAXIMIN 550 MG TABLET PO SCH (08:53)
[2020-02-01] MEDS: FAMOTIDINE 20 MG/2 ML VIAL IV SCH (08:53)
[2020-02-01] MEDS: BALSAM PERU/CASTOR OIL 60 GM OINT...G. TP SCH (08:58)
[2020-02-01] MEDS: LACTULOSE SYRUP 20 GM/30 ML UDC PO SCH (08:58)
[2020-02-01 09:39] LABS: ALBUMIN 2.7 g/dL (3.5-5.0); ALBUMIN/GLOBULIN RATIO 0.5 (0.8-2.0); ALKALINE PHOSPHATASE 76 IU/L (40-150); ANION GAP 20.5 mmol/L (8-16); BLOOD UREA NITROGEN 17 mg/dL (7-26); BUN/CREATININE RATIO 3 (6-25); CALCIUM 10.4 mg/dL (8.4-10.2); CARBON DIOXIDE 22 mmol/L (22-29); CHLORIDE 101 mmol/L (98-107); CREATININE, SERUM 5.66 mg/dL (0.72-1.25); EST GLOMERULAR FILTRATION RATE 13 ML/MIN (60-); GLUCOSE 99 mg/dL (74-118); POTASSIUM 3.5 mmol/L (3.5-5.1); SODIUM 140 mmol/L (136-145)
[2020-02-01 09:40] LABS: ALANINE AMINOTRANSFERASE < 6 IU/L (0-55)
[2020-02-01 09:45] LABS: BASOPHILS # (AUTO) 0.1 (0.0-0.1); BASOPHILS % 0.4 % (0.0-1.0); EOSINOPHILS # (AUTO) 0.1 (0.0-0.4); EOSINOPHILS % 0.4 % (0.0-6.0); HEMATOCRIT 30.3 % (38.2-49.6); HEMOGLOBIN 9.3 g/dL (14.0-18.0); LYMPHOCYTES # (AUTO) 3.9 (1.0-3.2); LYMPHOCYTES % 18.2 % (18.0-39.1); MEAN CORPUSCULAR HEMOGLOBIN 27.7 pg (28-32); MEAN CORPUSCULAR HGB CONC 30.7 g/dL (31-35); MEAN CORPUSCULAR VOLUME 90.2 fL (81-99); MONOCYTES # (AUTO) 1.9 (0.2-0.8); MONOCYTES % 8.6 % (4.4-11.3); NEUTROPHILS # (AUTO) 15.2 (2.1-6.9); NEUTROPHILS % 70.6 % (38.7-80.0); PLATELET COUNT 893 x10e3/uL (140-360); RED BLOOD COUNT 3.36 x10e6/uL (4.3-5.7); RED CELL DISTRIBUTION WIDTH 15.4 % (11.7-14.4)
[2020-02-01] MEDS ORDERED: ONDANSETRON HCL 4 MG ORAL DISINTEGRATING TAB PO PRN (10:30)
--- NOTE | 2020-02-01 10:53 | NUR ---
CALLED SISTER JESIKA BERNNAN AND EXPLAINED PATIENTS DIWSCHARGE AND PLAN TO READMIT TO [facility]. SHE IS IN AGREEMENT AND QUESTIONED HIS CURRENT WBC AND CONDITION. EXPLAINED TO HER SATISFACTION. ASKED HER TO CALL ME FOR ANY OTHER QUESTIONS. ATTEMPTED X3 TO CALL REPORT TO [facility] WITH NO RESULTS TO [phone]. COUNTER INTELLIGENCE TECHNICIAN TOOK MY NUMBER AND STATES THEY WILL CALL ME FOR REPORT. AMBULANCE NOTIFIED TO TRANSFER. PATIENTS MIDLINE REMOVED AND DIAPER CHANGED IN PREPARATION FOR TRANSFER.
[2020-02-01 11:21] LABS: LYMPHOCYTES % (MANUAL) 19 % (19-48); MONOCYTES % (MANUAL) 6 % (3.4-9.0); MYELOCYTES % (MANUAL) 2 % (0-0); NEUTROPHILS % (MANUAL) 73 % (40-74)
[2020-02-01 11:23] LABS: ANISOCYTOSIS SLIGHT; PLATELET ESTIMATE MARKEDLY INCREASED; PLATELET MORPHOLOGY COMMENT FEW LARGE
[2020-02-01 11:25] LABS: RBC MORPHOLOGY COMMENT NORMAL
[2020-02-01 11:26] LABS: PLATELET CLUMPS FEW
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
--- OUTSIDE RECORDS SUMMARY | 2020-02-02 16:08 | XMS REPORT | Clinical Summary ---
Author Author 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 Active LORazepam (ATIVAN) 0.5 MG Take 0.5 mg 0 tablet by mouth every 8 (eight) hours as needed for Anxiety. Active atorvastatin (LIPITOR) 40 Take 40 mg by 0 MG tablet mouth daily. Active baclofen (LIORESAL) 10 MG Take 10 mg by 0 tablet mouth 3 (three) times daily. Active doxazosin (CARDURA) 4 MG Take 4 mg by 0 tablet mouth 2 (two) times daily. Active carvedilol (COREG) 25 MG Take 25 mg by 0 tablet mouth 2 (two) times daily with breakfast and dinner. Active cyclobenzaprine Take 10 mg by 0 (FLEXERIL) 10 MG tablet mouth 3 (three) times daily as needed for Muscle spasms. Active hydrALAZINE (APRESOLINE) Take 25 mg by 0 25 MG tablet mouth 3 (three) times daily. Active escitalopram oxalate Take 5 mg by 0 (LEXAPRO) 5 MG tablet mouth daily. Active metoclopramide HCl Take 10 mg by 0 (REGLAN) 10 MG tablet mouth 3 (three) times daily as needed (GERD). Active polyethylene glycol Take 17 g by 0 (GLYCOLAX) 17 gram packet mouth daily. Active multivitamin per tablet Take 1 tablet 0 by mouth daily. Active ondansetron (ZOFRAN) 8 MG Take 8 mg by 0 tablet mouth every 8 (eight) hours as needed for Nausea. Active famotidine (PEPCID) 20 MG Take 20 mg by 0 tablet mouth 2 (two) times daily. Active clopidogrel (PLAVIX) 75 Take 75 mg by 0 mg tablet mouth daily. Active NIFEdipine (PROCARDIA-XL) Take 60 mg by 0 60 MG (OSM) 24 hr tablet mouth daily. Active promethazine (PHENERGAN) Place 25 mg 0 25 MG suppository rectally every 6 (six) hours as needed for Nausea. Active traMADol (ULTRAM) 50 mg Take 50 mg by 0 tablet mouth 2 (two) times daily as needed for Pain. Active ascorbic acid, vitamin C, Take 500 mg 0 (ASCORBIC ACID WITH YOKO by mouth HIPS) 500 MG tablet daily. Active zinc sulfate (ZINCATE) Take 220 mg 0 220 (50) mg capsule by mouth daily. Active Problems Problem Noted Date Acute encephalopathy 04/19/2017 Stage 2 chronic kidney disease 04/19/2017 Pneumonia of both lungs due to infectious organism 1 Seizure 04/15/2017 Somnolence 04/13/2017 Family History Medical History Relation Name Comments Cancer Father blood Asthma Mother Heart failure Mother Kidney failure Mother Relation Name Status Comments Father Mother Social History Date Tobacco Use Types Packs/Day Years Used Current Every Day Smoker Smokeless Tobacco: Never Used Alcohol Use Drinks/Week oz/Week Comments No Sex Assigned at Date Recorded Not on file Industry Job Start Date Occupation Not on file Not on file Not on file Travel End Travel History Travel Start No recent travel history available. Last Filed Vital Signs Not on file Plan of Treatment Not on file Results Not on fileafter 01/23/2019 Advance Directives For more information, please contact: [facility] [address] [place] [address] Date Inactivated Comments Code Status Date Activated 04/15/2017 4:05 PM Full Code 04/13/2017 4:06 PM This code status was determined by: Patient
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
--- OUTSIDE RECORDS SUMMARY | 2020-02-02 16:10 | XMS REPORT | Summary of Care ---
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 [Reference Range]: Negative (02/25/16 12:20 AM) Crypto Ag CSF [Negative] VIRAL - SEROLOGY 1 2 3 Most recent to oldest [Reference Range]: <0.90 1 *NA* (02/26/16 7:55 AM) W Nile Ab IgM Negative (02/25/16 12:20 AM) Enterovirus PCR CSF [Negative] 1Result Comment: REFERENCE RANGE: <0.90 INTERPRETIVE CRITERIA: <0.90 Antibody not detected 0.90 - 1.10 Equivocal >1.10 Antibody detected West Nile virus (WNV) IgM is usually detectable in serum specimens from WNV-infected patients at the time of clinical presentation. Because serum IgM antibody may persist for more than a year in some patients, its presence may indicate WNV infection in the previous year and be unrelated to the current clinical presentation. Antibodies induced by other flavivirus infections (e.g. Dengue virus, [place] encephalitis virus) may show cross-reactivity with WNV. Test Performed at: [email or web address] [employer] [id number] [place] [id number] Coleen Munoz MD Immunizations Given and Recorded Vaccine Date Status Refusal Reason pneumococcal 23-valent vaccine 02/17/16 Given tetanus-diphtheria toxoids 01/17/12 Given Procedures Procedure Date Related Diagnosis Body Site ACL - Repair of anterior cruciate ligament 2003 Social History Social History Type Response Substance Abuse Use: Current. Type: Cocain e. Recreational Drug Route: Inhaled.1 Alcohol Current, Type Wine. Freque ncy: Daily. Last use: FEBRUARY 2016. Started age 15 Years. Previous treatment: None . Alcohol use interferes with work or home: No. Drinks more than intended : No. Others hurt by drinking: No. Ready to change: No. Household alcohol concerns: No.2 Smoking Status Other Tobacco Frequency 1 P ACK / DAY; Cigarette Smoking Last 365 Days No; Reg Smoking Cessation Counseling No; Cu rrent every day smoker; Type: Cigarettes; Tobacco use per day: 10; Nu mber of years: 30; Started at age: [age]; Previous treatment: None; Ready t o change: No; Concerns about tobacco use in household: No; Exposure to Tobac co Smoke pt smokes 1LAST WEDNESDAY 26 PACKED EVERYDAY Assessment and Plan Extracted from: Title: Clinical Document Author: Rojas Vazquez MD te: 03/06/16 Progress Daily [facility] Completed: Wednesday, MAR 06, 2016, 14:43 by Rojas Vazquez MD RM: [id number], [id number], [id number] (: 1965) M Attending: Carla Evangelista MDPhone: Service: Internal Medicine Reason for Admission: LEUKOCYTOSIS, ELEVATED TROPONIN, HEADACHE, LEFT EPIDIDY Working DRG: Kidney & urinary tract infections w/o [facility] Code status: None Specified=FULL CODECurrent diet: Isolation: None Documented Allergies: NKDA SUBJECTIVE Status post bone marrow biopsy/aspirate with pending results. Now afebrile. OBJECTIVE GEN: Alert and oriented x3. No acute distress. HEENT: Oropharynx clear. Heme/Lymphatics: No lymphadenopathy. CVS: Normal sinus rhythm. Lungs: Clear to auscultation. Abdomen: Soft. Non-tender, non-distended. Extremities: No edema. Neurologic: No focal findings. ASSESSMENT & EXAM Leukocytosis, thrombocytosis, anemia, fever, elevated ESR. Appears to be reactive. PLAN & TREATMENT DIAGNOSES & PROBLEMS OK with discharge from my [facility]. Follow up in 2 weeks to discuss bone marrow biopsy findings. Ready for Discharge (Yes/No)? [place] still necessary (Yes/No): Line still necessary (Yes/No): 24hr Labs 09/02 0840 Glucose Lvl89 BUN13 Creatinine Lvl0.70 Sodium Gjp041 Potassium Lvl4.6 Chloride Lvl99 CO226 AGAP15.6 Calcium Lvl8.5 [id number] WBC20.8 H RBC4.01 L Hgb10.8 L Hct32.6 L MCV81.4 MCH27.0 MCHC33.2 RDW14.4 Iphnsbnk947 H MPV7.0 L Segs82.1 H Monocytes4.8 Lymphocytes9.0 L Eosinophils3.8 Basophils0.3 Segs-Bands #17.1 H Lymphocytes #1.9 Monocytes #1.0 H Eosinophils #0.8 H Basophils #0.1 RBC MorphNormal Plt MorphNormal VitalsTmp(F)[id number] 03/06 12:[id number]/409902--- 03/06 08:3298.486774/704507--- 03/06 04:0098.314794/324304 21% 03/06 00:0098.554820/505045 21% 03/05 20:1697.433091/078889 21% 24 Hr Tmax: 98.7F (37.06c) at 03/06 04:0 0Vital Signs are the last 5 in the past 48 hours. DateWt(kg)Wt(lb)Ht(cm)Ht(in)Method 03/06 71.00 156.21Measured 03/05 70.01 154.02Measured 03/02 71.01 156.22Measured 03/01 70.00 154.00Measured 02/28 69.80 153.56Measured 02/23 (initial) 68.18 150.92475.18 67.00 Estimated I&ORecordInOutBal 03/224hr Tot 210 0 210 03/124hr Tot 0946 [id number] Medications (14) Active Scheduled Meds (8): 02/25/16 amLODIPine 5 mg PO Daily 02/26/16 aspirin 81 mg PO Daily 02/25/16 famotidine (famotidine 20 mg or al tablet) 20 mg PO BID 03/02/16 fluconazole 400 mg IVPB CUIQ16G 100 ml/hr 08/25/16 gabapentin 300 mg PO Q8H 02/28/16 lactobacillus acidophilus and b ulgaricus (Floranex) 1 tab CHEW TID 03/05/16 levofloxacin (Levaquin) 500 mg PO [id number] 03/03/16 polyethylene glycol 3350 (Saba ax) 17 gm PO Daily Unscheduled Meds: None PRN Meds (6): 02/25/16 Sodium Chloride 0.9% IV 25 mL I SLIP PRESSER PRN 03/03/16 acetaminophen-codeine (Tylenol with Codeine #3 oral tablet) 2 tab PO Q4H 02/25/16 acetaminophen (Tylenol) 650 mg PO Q6H 02/25/16 sodium chloride (BD Normal Sali ne Flush) 5 mL IVP PRN 02/25/16 sodium chloride (BD Normal Sali ne Flush) 10 mL IVP PRN 02/29/16 tramadol (tramadol 50 mg oral t ablet) 100 mg PO Q6H One Time Meds: None Continuous Infusions: None
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
--- OUTSIDE RECORDS SUMMARY | 2020-02-02 16:10 | XMS REPORT | Continuity of Care Document ---
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 tab, PO, TID, PRN for spasms, # 30 tab, 0 Refill(s) On Hold 05/19/2016 [facility] baclofen 10 mg oral tablet 10 mg = 1 tab, PO, TID, # 270 tab, 0 Refill(s) On Hold 05/19/2016 [facility] atorvastatin 40 MG Oral Tablet [Lipitor] 40 mg = 1 tab, PO, Bedtime, # 90 tab, 0 Refill(s) On Hold 05/19/2016 [facility] Famotidine 20 MG Oral Tablet [Pepcid] 20 mg = 1 tab, PO, BID, # 180 tab, 0 Refill(s) O n Hold 05/19/2016 [facility] 24 HR Nifedipine 30 MG Extended Release Tablet [Nifedical] 30 mg = 1 tab, PO, Daily, # 30 tab, 0 Refill(s) No Longer Active 05/19/2016 [facility] Sodium Chloride 0.154 MEQ/ML Injectable Solution 1,000 mL, Rate: 125 ml/hr, Infuse over: 8 hr, Route: IV, Dosing Weight 59.3 kg, Total Volume: 1,000, Start date: 05/18/16 22:20:00 TRICOT KNITTER, Duration: 30 day, Stop date: 06/17/16 22:19:00 TRICOT KNITTER No Longe r Active 05/19/2016 [facility] Saline Flush 0.9% Notes: (Same as: BD Posiflush) No Longer Active 05/19/2016 [facility] Docusate Notes: (Same as: Cola ce) (Do Not Crush) No Longer Active 05/19/2016 [facility] Hydralazine Notes: (Same as: A presoline) Push over 5 minutes No Longer Active 05/19/2016 [facility] Hydralazine 5 mg, Route: IV, O NCE, Dosing Weight 59.3, kg, Start date: 05/18/16 22:08:00 TRICOT KNITTER, Stop date: 05/18/16 22:08:00 TRICOT KNITTER Inactive 05/19/2016 [facility] Sodium Chloride 0.154 MEQ/ML Injectable Solution 1,000 mL, 2,000 ml/hr, Infuse Over: 30 minutes, Route: IV, 1,000, Drug form: INJ, ONCE, Priority: STAT, Dosing Weight 59.3 kg, Start date: 05/18/16 21:43:00 TRICOT KNITTER, Duration: 1 doses or times, Stop date: 05/18/16 21:43:00 TRICOT KNITTER Inactive 05/19/2016 [facility] Labetalol 20 mg, Route: IVP, D rug form: INJ, ONCE, Dosing Weight 59.3, kg, Priority: STAT, Start date: 05/18/16 20:25:00 TRICOT KNITTER, Stop date: 05/18/16 20:25:00 TRICOT KNITTER Inactive 05/19/2016 [facility] Vancomycin 2001 mg: infuse ov er 2.5 hours MEDICATION WASTE Product Size: 1000 mg Product Wasted: ___ mg Inactive 05/19/2016 [facility] Saline Flush 0.9% Notes: (Same as: BD Posiflush) No Longer Active 05/19/2016 [facility] Zosyn 3.375 gm, Route: IVPB, O NCE, Dosing Weight 59.3, kg, Priority: STAT, Start date: 05/18/16 20:21:00 TRICOT KNITTER, Stop date: 05/18/16 20:21:00 TRICOT KNITTER Inactive 05/19/2016 [facility] Procardia XL Notes: (Same as: Procardia XL) "Do Not Crush" "Avoid grapefruit and grapefruit juice" Inactive 04/28/2016 [facility] 24 HR Nifedipine 60 MG Extended Release Tablet 60 mg = 1 tab, PO, Daily, # 30 tab, 0 Refill(s) Active 04/28/2016 [facility] Hydralazine Hydrochloride 50 MG Oral Tablet 50 mg = 1 tab, PO, Q8H, # 90 tab, 0 Refill(s) Active 04/28/2016 [facility] tramadol hydrochloride 50 MG Oral Tablet Notes: Not to exceed 400mg/day. (Same As: Ultram) No Longer Active 04/28/2016 [facility] Hydralazine Hydrochloride 50 MG Oral Tablet Notes: (Same as: Apresoline) May interfere w/enteral feedings Take With Food No Longer Active 04/27/2016 [facility] 24 HR Nifedipine 30 MG Extended Release Tablet 30 mg, 1 tab, Route: PO, Drug form: ERTAB, Daily, Dosing Weight 62.9, kg, Start date: 04/27/16 9:00:00 CDT, Duration: 30 day, Stop date: 05/26/16 9:00:00 TRICOT KNITTER Inactive 04/27/2016 [facility] clopidogrel Notes: (Same As: P lavix) No Longer Active 04/27/2016 [facility] Aspirin 81 MG Enteric Coated Tablet Notes: Do not crush or chew. (Same As: Ecotrin) No Longer Active 04/27/2016 [facility] Amlodipine Notes: (Same as: No rvasc) Inactive 04/27/2016 [facility] hydroxyurea Notes: (Same as: H ydrea) Chemotherapy agent/Handle with caution "Do Not Crush" WASTE: F/P - Black; E - Yellow No Longer Active 04/27/2016 [facility] heparin Notes: porcine heparin No Longer Active 04/27/2016 [facility] Sodium Chloride 0.154 MEQ/ML Injectable Solution 1,000 mL, Rate: 100 ml/hr, Infuse over: 10 hr, Route: IV, Dosing Weight 62.9 kg, Total Volume: 1,000, Start date: 04/26/16 22:16:00 CDT, Duration: 30 day, Stop date: 05/26/16 22:15:00 TRICOT KNITTER No Longe r Active 04/27/2016 [facility] Sodium Chloride 0.154 MEQ/ML Injectable Solution 500 mL, 500 ml/hr, Infuse Over: 1 hr, Route: IV, 500, Drug form: INJ, ONCE, Priority: STAT, Dosing Weight 62.9 kg, Start date: 04/26/16 22:14:00 CDT, Duration: 1 doses or times, Stop date: 04/26/16 22:14:00 CDT Inactive 04/27/2016 [facility] Labetalol Notes: (Same as: Greg Tovar) Push over 2 minutes Give bolus over 2-3 minutes. Inactive 04/27/2016 [facility] Labetalol Notes: (Same as: Pascale Tovardate) Push over 2 minutes Give bolus over 2-3 minutes. Inactive 04/26/2016 [facility] Ativan Notes: (Same as: Ativan) Inactive 04/26/2016 [facility] tramadol hydrochloride 50 MG Oral Tablet 50 mg = 1 tab, PO, Q6H, PRN Pain, # 40 tab, 0 Refill(s) Active 04/26/2016 [facility] cyclobenzaprine 10 mg oral tablet 10 mg = 1 tab, PO, TID, PRN for spasms, # 30 tab, 0 Refill(s) No Longer Active 04/26/2016 [facility] baclofen 10 mg oral tablet 10 mg = 1 tab, PO, TID, # 270 tab, 0 Refill(s) Active 04/26/2016 [facility] Hydralazine Notes: (Same as: A presoline) Push over 5 minutes Inactive 04/26/2016 [facility] Versed 2 mg, Route: IVP, ONCE, Dosing Weight 68.182, kg, Priority: STAT, Start date: 04/26/16 16:27:00 CDT, Stop date: 04/26/16 16:27:00 CDT Inactive 04/26/2016 [facility] Saline Flush 0.9% Notes: (Same as: BD Posiflush) No Longer Active 04/26/2016 [facility] Sodium Chloride 0.154 MEQ/ML Injectable Solution 1,000 mL, 2,000 ml/hr, Infuse Over: 30 minutes, Route: IV, ONCE, Priority: STAT, Dosing Weight 63.9 kg, Start date: 04/26/16 16:21:00 CDT, Duration: 1 doses or times, Stop date: 04/26/16 16:21:00 CDT Inactive 04/26/2016 [facility] Haldol 5 mg, Route: IM, ONCE, Dosing Weight 63.9, kg, Priority: STAT, Start date: 04/26/16 16:20:00 CDT, Stop date: 04/26/16 16:20:00 CDT Inactive 04/26/2016 [facility] Famotidine 20 MG Oral Tablet [Pepcid] 20 mg = 1 tab, PO, Daily, # 60 tab, 0 Refill(s), other Active 04/20/2016 [facility] amLODIPine 5 mg oral tablet 10 mg = 2 tab, PO, Daily, # 60 tab, 0 Refill(s) Active 04/20/2016 [facility] 24 HR Nifedipine 30 MG Extended Release Tablet 30 mg = 1 tab, PO, Daily, # 30 tab, 0 Refill(s) Active 04/20/2016 [facility] Hydralazine Hydrochloride 25 MG Oral Tablet 25 mg = 1 tab, PO, Q6H, # 120 tab, 0 Refill(s) Active 04/20/2016 [facility] atorvastatin 20 mg oral tablet 20 mg = 1 tab, PO, Bedtime, # 30 tab, 0 Refill(s) Active 04/20/2016 [facility] hydroxyurea 500 mg oral capsule 500 mg = 1 cap, PO, [id number], X 60 day, # 120 cap, 0 Refill(s) Active 04/20/2016 [facility] Aspirin 81 MG Enteric Coated Tablet 81 mg = 1 tab, PO, Daily, # 30 tab, 2 Refill(s) Active 04/20/2016 [facility] clopidogrel 75 mg oral tablet 75 mg = 1 tab, PO, Daily, # 90 tab, 0 Refill(s) Active 04/20/2016 [facility] 24 HR Nifedipine 30 MG Extended Release Tablet 30 mg = 1 tab, PO, Daily, 0 Refill(s) Inactive 04/20/2016 [facility] hydroxyurea 500 mg oral capsule 500 mg = 1 cap, PO, [id number], 0 Refill(s) Inactive 04/20/2016 [facility] Hydralazine Hydrochloride 25 MG Oral Tablet 25 mg = 1 tab, PO, Q6H, 0 Refill(s) Inactive 04/20/2016 [facility] clindamycin 150 mg oral capsule 300 mg = 2 cap, PO, [id number], X 7 day, # 42 cap, 0 Refill(s) Active 04/20/2016 [facility] Plavix Notes: (Same As: Plavix) No Longer Active 04/20/2016 [facility] MAGNESIUM GLUCONATE Notes: (Sa me as: [place]) Magnesium gluconate 500mg=27mg elemental magnesium Dose= mg magnesium gluconate(___mg elemental magnesium) No Longe r Active 04/19/2016 [facility] Clindamycin Notes: (Same As: C leocin) No Longer Active 04/18/2016 [facility] 24 HR Nifedipine 30 MG Extended Release Tablet Notes: (Same as: Procardia XL) "Do Not Crush" "Avoid grapefruit and grapefruit juice" No Longer Active 04/17/2016 [facility] multivitamin Notes: Give with food. (Same As : Therapeutic multivitamins) No Longer Active 04/17/2016 [facility] Thiamine Notes: (Same As: Joyce min B1) No Longer Active 04/17/2016 [facility] Norvasc Notes: (Same as: Norva sc) No Longer Active 04/17/2016 [facility] remove patch Notes: Remove old patch before application of new patch. WASTE: F/P - P Waste Black; E - P Waste Black No Longer Active 04/17/2016 [facility] atorvastatin Notes: (Same As: Lipitor) No Longer Active 04/17/2016 [facility] Hydralazine Notes: (Same as: A presoline) May interfere w/enteral feedings Take With Food. No Longer Active 04/16/2016 [facility] 24 HR Nifedipine 30 MG Extended Release Tablet Notes: (Same as: Procardia XL) "Do Not Crush" "Avoid grapefruit and grapefruit juice" Inactive 04/16/2016 [facility] Clonidine Hydrochloride 0.2 MG Oral Tablet Notes: (Same As: Catapres) No Longer Active 04/16/2016 [facility] Notes: (Same as: Norva sc) Inactive 04/16/2016 [facility] Sodium Chloride 0.9% IV IV, 20 00 ml/hr, ONCALL, Start date: 04/16/16 15:00:00 CDT, Duration: 1, 2,000 ml No Longer Active 04/16/2016 [facility] sodium citrate Notes: Same as Anticoagulant Citrate Dextrose Soln SENIOR CARE (ACD) Formula A No Longer Active 04/16/2016 [facility] calcium gluconate 2,400 mg + potassium c hloride 12 mEq + magnesium sulfate 6 mEq + sodium chloride Route: IV, Drug form: INJ, ONCALL, Start date: 04/16/16 15:00:00 CDT, Duration: 30 day, Stop date: 05/16/16 13:59:00 TRICOT KNITTER No Longer Active 04/16/2016 [facility] Calcium Gluconate Notes: WASTE : F/P - Sink; E - Municipal Trash Bin Inactive 04/16/2016 [facility] Famotidine 20 MG Oral Tablet N otes: (Same as: Pepcid) No Longer Active 04/16/2016 [facility] Nicotine Notes: (Same as: Jamison patiño) "Remove old patch before application of new patch" WASTE: F/P - P Waste Black; E - P Waste Black No Longer Active 04/16/2016 [facility] Aspirin Notes: Do not crush or chew. (Same As: Ecotrin) Inactive 04/16/2016 [facility] Amlodipine Notes: (Same as: No rvasc) Inactive 04/16/2016 [facility] Aspirin 325 MG Oral Tablet Not es: Take with food. No Longer Active 04/16/2016 [facility] Enoxaparin Notes: (Same as: Lo venox) Inactive 04/16/2016 [facility] Morphine Notes: (Same as:MORPh ine Sulfate) No Longer Active 04/16/2016 [facility] Tylenol Notes: Infuse over 15 minutes Do not exceed 4gm/day of acetaminophen MEDICATION WASTE Product Size: 1000 mg Product Wasted: ___ mg No Longer Active 04/16/2016 [facility] hydroxyurea Notes: (Same as: Coleen ydrea) Chemotherapy agent/Handle with caution "Do Not Crush" WASTE: F/P - Black; E - Yellow No Longer Active 04/16/2016 [facility] hydroxyurea 1,607.5 mg, Route: PO, Drug form: CAP, Daily, Dosing Weight 64.3, kg, Priority: STAT, Start date: 04/16/16 7:05:00 CDT, Duration: 30 day, Stop date: 05/15/16 9:00:00 TRICOT KNITTER Inactive 04/16/2016 [facility] sodium chloride 0.9% 1000 ml INJ 1,000 mL 1,000 mL, Rate: 75 ml/hr, Infuse over: 13.3 hr, Route: IV, Dosing Weight 64.3 kg, Total Volume: 1,000, Start date: 04/16/16 5:22:00 CDT, Stop date: 05/16/16 5:21:00 TRICOT KNITTER No Longer Active 04/16/2016 [facility] Heparin 80 unit/kg Bolus (Heparin Dosing Weight) Route: IVP, PRN, 5,100 unit, 5.1 mL, Drug form: INJ, PRN, Heparin Protocol, Start date: 04/16/16 5:02:00 CDT Stop date: 05/16/16 4:01:00 TRICOT KNITTER, 30 day No Longer Active 04/16/2016 [facility] heparin additive 25,000 unit [18 unit/kg /hr] + Premix Diluent Dextrose 5% 500 mL 500 mL, Rate: 23.15 ml/hr, Infuse over: 21.6 hr, Route: IV, Dosing Weight 64.3 kg, Total Volume: 500 mL, Start date: 04/16/16 5:02:00 CDT, Duration: 30 day, Stop date: 05/16/16 5:01:00 TRICOT KNITTER No Longer Active 04/16/2016 [facility] Heparin 40 unit/kg Bolus (Heparin Dosing Weight) Route: IVP, PRN, 2,600 unit, 2.6 mL, Drug form: INJ, PRN, Heparin Protocol, Start date: 04/16/16 5:02:00 CDT Stop date: 05/16/16 4:01:00 TRICOT KNITTER, 30 day No Longer Active 04/16/2016 [facility] Ondansetron Notes: (Same as: Manuel lopez) MEDICATION WASTE Product Size: 4 mg Product Wasted: ___ mg No Longer Active 04/16/2016 [facility] Acetaminophen 325 MG / Hydrocodone Elvia trate 5 MG Oral Tablet Notes: (Same as: Eloy 325/5) Do not ex ceed 4gm/day of acetaminophen. No Longer Active 04/16/2016 [facility] Docusate Notes: (Same as: Cola ce) (Do Not Crush) No Longer Active 04/16/2016 [facility] Acetaminophen Notes: Do not ex ceed 4 gm/day. (Same as: Tylenol) Inactive 04/16/2016 [facility] Aspirin 325 MG Oral Tablet 325 mg = 1 tab, PO, Daily, # 30 tab, 1 Refill(s) Active 03/13/2016 [facility] Valium 5 mg, Route: IVP, Drug form: INJ, ONCE, Dosing Weight 63.636, kg, Priority: STAT, Start date: 03/12/16 19:32:00 CDT, Stop date: 03/12/16 19:32:00 CDT Inactive 03/13/2016 [facility] Aspirin 325 mg, Route: PO, Kareem g form: TAB, ONCE, Dosing Weight 63.636, kg, Priority: STAT, Start date: 03/12/16 19:30:00 CDT, Stop date: 03/12/16 19:30:00 CDT Inactive 03/13/2016 [facility] Ketorolac 4 days MEDICA TION WASTE Product Size: 30 mg Product Wasted: ___ mg Inactive 03/12/2016 [facility] Ketorolac 30 mg, Route: IM, Dr ug form: INJ, ONCE, Dosing Weight 63.636, kg, Priority: STAT, Start date: 03/12/16 18:51:00 CDT, Stop date: 03/12/16 18:51:00 CDT Inactive 03/12/2016 [facility] Zofran 4 mg, Route: IVP, Drug form: INJ, ONCE, Dosing Weight 63.636, kg, Priority: STAT, Start date: 03/12/16 18:26:00 CDT, Stop date: 03/12/16 18:26:00 CDT Inactive 03/12/2016 [facility] Sodium Chloride 0.154 MEQ/ML Injectable Solution 1,000 mL, 1,000 ml/hr, Infuse Over: 1 hr, Route: IV, ONCE, Priority: STAT, Dosing Weight 63.636 kg, Start date: 03/12/16 18:26:00 CDT, Duration: 1 doses or times, Stop date: 03/12/16 18:26:00 CDT Inactive 03/12/2016 [facility] Sodium Chloride 0.154 MEQ/ML Injectable Solution 1,000 mL, 1,000 ml/hr, Infuse Over: 1 hr, Route: IV, ONCE, Priority: STAT, Dosing Weight 63.636 kg, Start date: 03/12/16 18:16:00 CDT, Duration: 1 doses or times, Stop date: 03/12/16 18:16:00 CDT Inactive 03/12/2016 [facility] Saline Flush 0.9% Notes: (Same as: BD Posiflush) Inactive 03/12/2016 [facility] Fluconazole Notes: (Same as: D iflucan) Inactive 03/07/2016 [facility] tramadol hydrochloride 50 MG Oral Tablet 100 mg = 2 tab, PO, Q8H, PRN Pain Score 6-10, X 5 day, # 30 tab, 0 Refill(s) Active 03/07/2016 [facility] levofloxacin 250 mg oral tablet 500 mg = 2 tab, PO, [id number], X 10 day, # 20 tab, 0 Refill(s) Active 03/07/2016 [facility] fluconazole 100 mg oral tablet 200 mg = 2 tab, PO, [id number], X 7 day, # 14 tab, 0 Refill(s) Active 03/07/2016 [facility] cyclobenzaprine 10 mg oral tablet 10 mg = 1 tab, PO, TID, PRN Spasm, X 10 day, # 30 tab, 0 Refill(s) Active 03/07/2016 [facility] Aspirin 81 MG Enteric Coated Tablet 81 mg = 1 tab, PO, Daily, # 30 tab, 2 Refill(s) Active 03/07/2016 [facility] atorvastatin 20 mg oral tablet 20 mg = 1 tab, PO, Bedtime, # 30 tab, 2 Refill(s) Active 03/07/2016 [facility] Flexeril Notes: (Same As: Flex eril) No Longer Active 03/06/2016 [facility] Levaquin Notes: Do not give w/ antacids, dairy pdt & minerals Take 1 hr before or 2 hr after dairy pdt (Same as:Levaquin) No Longer Active 03/05/2016 [facility] Acetaminophen 300 MG / Codeine Phosphate 30 MG Oral Tablet [Tylenol with Codeine #3] Notes: Do not exceed 4gm/day of acetamin ophen. (Same as: Tylenol with Codeine # 3) No Longer Active 03/03/2016 [facility] Miralax Notes: Dissolve in 8 o z of water or juice. (Same as: Miralax) No Longer Active 03/03/2016 [facility] Sodium Chloride 0.154 MEQ/ML Injectable Solution 1,000 mL, Rate: 75 ml/hr, Infuse over: 13.3 hr, Route: IV, Dosing Weight 68.182 kg, Total Volume: 1,000, Start date: 03/02/16 11:00:00 CDT, Duration: 30 day, Stop date: 04/01/16 10:59:00 CDT No Longer Active 03/02/2016 [facility] Fluconazole Notes: (Same as: D iflucan) No Longer Active 03/02/2016 [facility] Saline Flush 0.9% Notes: prese rvative free. No Longer Active 03/02/2016 [facility] Saline Flush 0.9% 10 mL, Route : IVP, Drug Form: INJ, Dosing Weight 68.182, kg, PRN, PRN Line Flush, Start date: 03/01/16 16:09:00 CDT, Duration: 30 day, Stop date: 03/31/16 16:08:00 CDT Inactive 03/01/2016 [facility] Fluconazole Notes: (Same as: D iflucan) No Longer Active 03/01/2016 [facility] tramadol hydrochloride 50 MG Oral Tablet Notes: Not to exceed 400mg/day. (Same As: Ultram) No Longer Active 02/29/2016 [facility] Zosyn Notes: (Same as: Zosyn) Dosing based on Piperacillin component MEDICATION WASTE Product Size: 3375 mg Product Wasted: ___ mg No Longer Active 02/29/2016 [facility] Ceftriaxone Notes: (Same As: R ocephin). Use with 100 mL NS and infuse over 30 min MEDICATION WASTE Product Size: 1000 mg Product Wasted: ___ mg No Longer Active 02/29/2016 [facility] Fluconazole Notes: (Same as: D iflucan) Do not refrigerate No Longer Active 02/28/2016 [facility] Floranex Notes: (Same as Alisha nex) Do NOT refrigerate No Longer Active 02/28/2016 [facility] gabapentin Notes: (Same as: Ne urontin) No Longer Active 02/27/2016 [facility] NS + KCL 20mEq/L 1000ml (Premix) 1,000 mL Notes: PREMIX IV - Do Not Alter WASTE: F/P - Sink; E - Municipal Trash Bin No Longer Active 02/27/2016 [facility] Services Magnesium Sulfate Notes: WASTE : F/P - Sink; E - Municipal Trash Bin Inactive 02/26/2016 [facility] Aspirin Notes: Do not crush or chew. (Same As: Ecotrin) No Longer Active 02/26/2016 [facility] remove patch Notes: Remove old patch before application of new patch. WASTE: F/P - P Waste Black; E - P Waste Black Inactive 02/26/2016 [facility] Tylenol Notes: Do not exceed 4 gm/day. (Same as: Tylenol) No Longer Active 02/26/2016 [facility] Vancomycin 2001 mg: infuse ov er 2.5 hours MEDICATION WASTE Product Size: 1000 mg Product Wasted: ___ mg No Longer Active 02/25/2016 [facility] Rocephin Notes: (Same As: Roce phin). Use with 100 mL NS and infuse over 30 min MEDICATION WASTE Product Size: 2000 mg Product Wasted: ___ mg No Longer Active 02/25/2016 [facility] Sodium Chloride 0.9% IV 25 mL, Route: IVP, Start date: 02/25/16 9:29:00 CDT, Duration: 30 day, Stop date: 03/26/16 9:28:00 CDT, PRN Line Flush No Longer Active 02/25/2016 [facility] Famotidine 20 MG Oral Tablet N otes: (Same as: Pepcid) No Longer Active 02/25/2016 [facility] BD Normal Saline Flush Notes: (Same as: BD Posiflush) No Longer Active 02/25/2016 [facility] Amlodipine Notes: (Same as: No rvasc) No Longer Active 02/25/2016 [facility] sodium chloride 0.9% 1000 ml INJ 1,000 mL 1,000 mL, Rate: 75 ml/hr, Infuse over: 13.3 hr, Route: IV, Dosing Weight 68.182 kg, Total Volume: 1,000, Start date: 02/25/16 9:24:00 CDT, Duration: 30 day, Stop date: 03/26/16 9:23:00 CDT No Longer Active 02/25/2016 [facility] Aspirin Notes: Take with food. Inactive 02/25/2016 [facility] Doxycycline Notes: (Same as: V ibramycin) No milk/antacids/iron. Inactive 02/25/2016 [facility] Nicotine 14 mg, Route: TOP, Dr ug form: ERFILM, ONCE, Dosing Weight 68.182, kg, Start date: 02/25/16 1:19:00 CDT, Stop date: 02/25/16 1:19:00 CDT Inactive 02/25/2016 [facility] Nicotine Notes: (Same as: Jamison patiño) "Remove old patch before application of new patch" WASTE: F/P - P Waste Black; E - P Waste Black Inactive 02/25/2016 [facility] Rocephin Notes: (Same As: Stewart andrews). Use with 100 mL NS and infuse over 30 min MEDICATION WASTE Product Size: 2000 mg Product Wasted: ___ mg Inactive 02/25/2016 [facility] Vancomycin 2001 mg: infuse ov er 2.5 hours MEDICATION WASTE Product Size: 1000 mg Product Wasted: ___ mg No Longer Active 02/25/2016 [facility] Saline Flush 0.9% Notes: (Same as: BD Posiflush) No Longer Active 02/24/2016 [facility] ciprofloxacin 500 mg oral tablet 500 mg = 1 tab, PO, Q12H, X 10 day, # 20 tab, 0 Refill(s) Active 02/20/2016 [facility] cephalexin 500 mg oral capsule 500 mg = 1 cap, PO, QID, X 10 day, # 40 cap, 0 Refill(s) Inactive 02/20/2016 [facility] Famotidine 20 MG Oral Tablet 2 0 mg = 1 tab, PO, BID, # 120 tab, 0 Refill(s) Active 02/20/2016 [facility] amLODIPine 5 mg oral tablet 5 mg = 1 tab, PO, Daily, # 21 tab, 0 Refill(s) Active 02/20/2016 [facility] Amlodipine Notes: (Same as: No rvasc) Inactive 02/20/2016 [facility] Magnesium Oxide Notes: (Same a s: Mag-Ox 400) Magnesium oxide [id number] elemental magnesium Dose=____mg magnesium oxide (___mg elemental magnesium) No Longer Active 02/19/2016 [facility] Famotidine Notes: (Same as: Pe pcid) No Longer Active 02/19/2016 [facility] Doxycycline Notes: (Same as: V ibramycin) "Do Not Crush" Inactive 02/19/2016 [facility] potassium chloride Notes: ([facility] [place]: K-Dur 20) "Do Not Crush" With food and full glass of water Inactive 02/19/2016 [facility] Zofran Notes: (Same as: Zofran ) MEDICATION WASTE Product Size: 4 mg Product Wasted: ___ mg No Longer Active 02/19/2016 [facility] Keflex Notes: Take on empty st omach. (Same As: Keflex) No Longer Active 02/18/2016 [facility] Tylenol Notes: Do not exceed 4 gm/day. (Same as: Tylenol) No Longer Active 02/18/2016 [facility] Doxycycline 100 mg, PO, Q12H, 0 Refill(s) No Longer Active 02/17/2016 [facility] tramadol hydrochloride 50 MG Oral Tablet 50 mg = 1 tab, PO, Q8H, PRN Pain, # 60 tab, 0 Refill(s) No Longer Active 02/17/2016 [facility] carbamide peroxide otic 6.5% solution Notes: (carbamide peroxide 6.5% 15 ml otic SOLN) (Same As: Debrox) No Longer Active 02/17/2016 [facility] Ceftriaxone Notes: (Same As: R ocephin). Use with 100 mL NS and infuse over 30 min MEDICATION WASTE Product Size: 1000 mg Product Wasted: ___ mg No Longer Active 02/17/2016 [facility] Saline Flush 0.9% Notes: Same as: BD Posiflush Sterile No Longer Active 02/17/2016 [facility] Lactated Ringers Injection IV 1000 mL 1,000 mL, Rate: 125 ml/hr, Infuse over: 8 hr, Route: IV, Dosing Weight 70.455 kg, Total Volume: 1,000, Start date: 02/17/16 8:19:00 CDT, Duration: 30 day, Stop date: 03/18/16 8:18:00 CDT No Longer Active 02/17/2016 [facility] Sodium Chloride 0.154 MEQ/ML Injectable Solution 1,000 mL, Rate: 100 ml/hr, Infuse over: 10.1 hr, Route: IV, Dosing Weight 85.455 kg, Total Volume: 1,011.2, Start date: 02/17/16 8:13:00 CDT, Duration: 3 day, Stop date: 02/20/16 8:12:00 CDT No Longer Active 02/17/2016 [facility] Sodium Chloride 0.154 MEQ/ML Injectable Solution 250 mL, Rate: 10 ml/hr, Infuse over: 25.3 hr, Route: IV, Dosing Weight 85.455 kg, Total Volume: 252.5, Start date: 02/17/16 8:10:00 CDT, Duration: 30 day, Stop date: 03/18/16 8:09:00 CDT, Infuse at 50 mcg/hr. Final concentration = 50 mcg/10 mL No Longer Active 02/17/2016 [facility] Octreotide Notes: (Same As: Sa ndoSTATIN). Refrigerate. MEDICATION WASTE Product Size: 50 microgram Product Wasted: ___ microgram Inactive 02/17/2016 [facility] Ondansetron Notes: (Same as: Manuel lopez) MEDICATION WASTE Product Size: 4 mg Product Wasted: ___ mg No Longer Active 02/17/2016 [facility] pantoprazole Notes: For IV pus h reconstitute with 10 ml 0.9% sodium chloride and push over 2 minutes. (Same as: Protonix) Inactive 02/17/2016 [facility] Saline Flush 0.9% Notes: Same as: BD Posiflush Sterile No Longer Active 02/17/2016 [facility] Doxycycline Notes: (Same as: V ibramycin) No Longer Active 02/17/2016 [facility] Omnipaque 300 Notes: (Same as: Omnipaque 300). WASTE: F/P - Black; E - Municipal Trash Bin No Longer Active 02/17/2016 [facility] Protonix Notes: For IV push re constitute with 10 ml 0.9% sodium chloride and push over 2 minutes. (Same as: Protonix) Inactive 02/17/2016 [facility] GI cocktail Notes: [place] = antacid with simethicone 22.5 mL - lidocaine viscous 7.5 mL Inactive 02/17/2016 [facility] Ondansetron Notes: (Same as: Manuel lopez) MEDICATION WASTE Product Size: 4 mg Product Wasted: ___ mg Inactive 02/14/2016 [facility] Morphine Notes: (Same as:MORPh ine Sulfate) Inactive 02/14/2016 [facility] Sodium Chloride 0.154 MEQ/ML Injectable Solution 1,000 mL, 2,000 ml/hr, Infuse Over: 30 minutes, Route: IV, 1,000, Drug form: INJ, ONCE, Priority: STAT, Dosing Weight 90.909 kg, Start date: 02/14/16 1:13:00 CDT, Duration: 1 doses or times, Stop date: 02/14/16 1:13:00 CDT Inactive 02/14/2016 [facility] Saline Flush 0.9% Notes: (Same as: BD Posiflush) Inactive 02/14/2016 [facility] cephalexin 500 mg oral tablet 500 mg = 1 tab, PO, QID, # 28 tab, 0 Refill(s) Active 05/10/2014 [facility] Acetaminophen 300 MG / Codeine Phosphate 30 MG Oral Tablet [Tylenol with Codeine #3] 1 - 2 tab, PO, Q4H, Pain, # 20 tab, 0 Re fill(s) Active 05/10/2014 [facility] Mupirocin 0.02 MG/MG Topical Ointment [Bactroban] 1 appl, TOP, TID, # 22 gm, 0 Refill(s) Active 05/10/2014 [facility] Mupirocin 0.02 MG/MG Topical Ointment [Bactroban] 1 appl, Route: TOP, ONCE, Drug form: OINT, Priority: Stat, Start date: 05/09/14 20:25:00, Stop date: 05/09/14 20:25:00 Inactive 05/10/2014 [facility] Ketorolac 4 days Inactive 05/10/2014 [facility] Saline Flush 0.9% Notes: Same as: BD Posiflush Sterile Inactive 05/10/2014 [facility] Acetaminophen 325 MG / Hydrocodone Elvia trate 5 MG Oral Tablet [Eloy 5/325] Notes: (Same as: Eloy 325/5) Do not ex ceed 4gm/day of acetaminophen. Inactive 05/10/2014 [facility] Diphenhydramine Hydrochloride 25 MG Oral Capsule [Benadryl] 25 mg = 1 cap, PO, Q6H, Itching, # 30 ca p, 0 Refill(s) Active 04/19/2014 [facility] tramadol hydrochloride 50 MG Oral Tablet 50 mg = 1 tab, PO, Q6H, Pain, # 40 tab, 0 Refill(s) Active 04/19/2014 [facility] Sulfamethoxazole 800 MG / Trimethoprim 1 60 MG Oral Tablet [Bactrim] 1 tab, PO, BID, # 20 tab, 0 Refill(s) Active 04/19/2014 [facility] Cephalexin 500 MG Oral Capsule [Keflex] 500 mg = 1 cap, PO, QID, # 40 cap, 0 Refill(s) Active 04/19/2014 [facility] Acetaminophen 325 MG / Hydrocodone Elvia trate 5 MG Oral Tablet [Eloy 5/325] 1 tab, Route: PO, Drug Form: TAB, Dosing Weight 90.909, kg, ONCE, STAT, Start date: 02/14/14 15:05:00, Stop date: 02/14/14 15:05:00 Inactive 02/14/2014 [facility] Aspirin / Calcium Carbonate No annie: Take with food. Inactive 02/14/2014 [facility] Nitroglycerin Notes: (Same as: Nitroquick, Nitrostat) "Do Not Crush" Sublingual tablet Inactive 02/14/2014 [facility] Saline Flush 0.9% Notes: (Same as: BD Posiflush) Inactive 02/14/2014 [facility] Allergies, Adverse Reactions, Alerts Substance Category Reaction Severity Reaction type Status Date Reported Comments Source Tylenol Assertion Drug allergy Active [facility] Immunizations Immunization Date Given Site Status Last Updated Comments Source influenza virus vaccine, inactivated 05/07/2016 Left Deltoid completed Mahjaneen [facility] influenza virus vaccine, inactivated 04/20/2016 Right deltoid completed Paula [facility] pneumococcal 23-valent vaccine 02/17/2016 Left Deltoid completed Erin [facility] tetanus-diphtheria toxoids Left deltoid completed [place] [facility] Results Order Name Results Value Reference Range Date Interpretation Comments Source URINE AND STOOL UA Leuk Est Trace *ABN* (02/18/17 8:18 PM) Negative 02/19/2017 [facility] URINE AND STOOL UA Spec Grav 1.017 <=1.030 02/19/2017 [facility] URINE AND STOOL UA Turbidity Clear (02/18/17 8:18 PM) Clear 02/19/2017 [facility] URINE AND STOOL UA Color Yellow *NA* (02/18/17 8:18 PM) Yellow 02/19/2017 [facility] URINE AND STOOL UA Nitrite Negative (02/18/17 8:18 PM) Negative 02/19/2017 [facility] URINE AND STOOL UA Urobilinogen 2.0 0.1 - 1.0 02/19/2017 [facility] URINE AND STOOL UA Blood Small *ABN* (02/18/17 8:18 PM) Negative 02/19/2017 [facility] URINE AND STOOL UA Ketones Trace mg/dL Negative mg/dL 02/19/2017 [facility] URINE AND STOOL UA Bili Negative *NA* (02/18/17 8:18 PM) Negative 02/19/2017 [facility] URINE AND STOOL UA Protein 100 mg/dL Negative mg/dL 02/19/2017 [facility] URINE AND STOOL UA Glucose Negative mg/dL Negative mg/dL 02/19/[address] [facility] URINE AND STOOL UA pH 6.0 5.0 - 8.0 02/19/2017 [facility] URINE AND STOOL UA Amorph Gerri Occasional /HPF None Seen /HPF 02/19/[address] [facility] URINE AND STOOL UA Bacteria Few /HPF None Seen /HPF 02/19/2017 [facility] URINE AND STOOL UA RBC 4 0 - 2 02/19/2017 [facility] URINE AND STOOL UA WBC 5 0 - 5 02/19/2017 [facility] URINE AND STOOL UA Sq Epi Occasional /LPF Few /LPF 02/19/2017 [facility] CARDIAC ENZYMES CK MB Index 0.7 0.0 - 2.5 02/18/2017 [facility] CARDIAC ENZYMES Total CK 144 12 - 191 02/18/2017 [facility] CARDIAC ENZYMES CK MB 1.0 0.5 - 3.6 02/18/2017 [facility] CARDIAC ENZYMES Troponin-I <0.02 0.00 - 0.40 02/18/2017 [facility] CHEM PANEL Magnesium Lvl 2.4 1.8 - 2.4 02/18/2017 [facility] CHEM PANEL Phosphorus 3.1 2.5 - 4.5 02/18/2017 [facility] CHEM PANEL Lipase Lvl 93 73 - 393 02/18/2017 [facility] CHEM PANEL eGFR 64 02/18/2017 Result Comment: The eGFR is calculated using the [...] from the National Kidney Disease Education Program (NKDEP) which additionally recommends that when the eGFR is used in patients with extremes of body mass index for purposes of drug dosing, the eGFR should be multiplied by the estimated BMI. [facility] CHEM PANEL B/C Ratio 14 6 - 25 02/18/2017 [facility] CHEM PANEL AGAP 12.2 10.0 - 20.0 02/18/2017 [facility] CHEM PANEL A/G Ratio 0.8 0.7 - 1.6 02/18/2017 [facility] CHEM PANEL Globulin 4.6 2.7 - 4.2 02/18/2017 [facility] CHEM PANEL Bili Total 0.4 0.2 - 1.3 02/18/2017 [facility] CHEM PANEL ALT 72 0 - 65 02/18/2017 [facility] CHEM PANEL Albumin Lvl 3.6 3.5 - 5.0 02/18/2017 [facility] CHEM PANEL Alk Phos 152 39 - 136 02/18/2017 [facility] CHEM PANEL AST 38 0 - 37 02/18/2017 [facility] CHEM PANEL CO2 25 24 - 32 02/18/2017 [facility] CHEM PANEL Glucose Lvl 85 70 - 99 02/18/2017 [facility] CHEM PANEL Creatinine Lvl 1.44 0.50 - 1.40 02/18/2017 [facility] CHEM PANEL BUN 20 7 - 22 02/18/2017 [facility] CHEM PANEL Total Protein 8.2 6.4 - 8.4 02/18/2017 [facility] CHEM PANEL Sodium Lvl 140 135 - 145 02/18/2017 [facility] CHEM PANEL Potassium Lvl 4.2 3.5 - 5.1 02/18/2017 [facility] CHEM PANEL Calcium Lvl 9.5 8.5 - 10.5 02/18/2017 [facility] CHEM PANEL Chloride Lvl 107 95 - 109 02/18/2017 [facility] HEMATOLOGY Monocytes 10.8 2.0 - 12.0 02/18/2017 [facility] HEMATOLOGY Eosinophils 6.4 0.0 - 4.0 02/18/2017 [facility] HEMATOLOGY Basophils 1.2 0.0 - 1.0 02/18/2017 [facility] HEMATOLOGY Segs-Bands # 2.8 1.5 - 8.1 02/18/2017 [facility] HEMATOLOGY Monocytes # 0.6 0.0 - 0.8 02/18/2017 [facility] HEMATOLOGY Eosinophils # 0.4 0.0 - 0.5 02/18/2017 [facility] HEMATOLOGY Basophils # 0.1 0.0 - 0.2 02/18/2017 [facility] HEMATOLOGY Lymphocytes # 2.0 1.0 - 5.5 02/18/2017 [facility] HEMATOLOGY Segs 47.9 45.0 - 75.0 02/18/2017 [facility] Lymphocytes 33.7 20.0 - 40.0 02/18/2017 [facility] HEMATOLOGY Hct 41.5 42.0 - 54.0 02/18/2017 [facility] HEMATOLOGY MCV 86.5 80.0 - 94.0 02/18/2017 [facility] HEMATOLOGY MCH 28.8 27.0 - 31.0 02/18/2017 [facility] HEMATOLOGY RDW 16.9 11.5 - 14.5 02/18/2017 [facility] HEMATOLOGY Platelet 315 133 - 450 02/18/2017 [facility] MCHC 33.3 32.0 - 36.0 02/18/2017 [facility] HEMATOLOGY MPV 9.1 7.4 - 10.4 02/18/2017 [facility] HEMATOLOGY WBC 5.9 3.7 - 10.4 02/18/2017 [facility] HEMATOLOGY RBC 4.79 4.70 - 6.10 02/18/2017 [facility] HEMATOLOGY Hgb 13.8 14.0 - 18.0 02/18/2017 [facility] CHEM PANEL Creatinine Lvl 2.10 0.50 - 1.40 10/03/2016 [facility] CHEM PANEL BUN 31 7 - 22 10/03/2016 [facility] CHEM PANEL eGFR 40 10/03/2016 Result Comment: The eGFR is calculated using the [...] from the National Kidney Disease Education Program (NKDEP) which additionally recommends that when the eGFR is used in patients with extremes of body mass index for purposes of drug dosing, the eGFR should be multiplied by the estimated BMI. [facility] CHEM PANEL Calcium Lvl 9.1 8.5 - 10.5 10/03/2016 [facility] CHEM PANEL CO2 21 24 - 32 10/03/2016 [facility] CHEM PANEL Potassium Lvl 4.5 3.5 - 5.1 10/03/2016 [facility] CHEM PANEL Chloride Lvl 100 95 - 109 10/03/2016 [facility] CHEM PANEL Sodium Lvl 133 135 - 145 10/03/2016 [facility] CHEM PANEL Glucose Lvl 87 70 - 99 10/03/2016 [facility] CHEM PANEL AGAP 16.5 10.0 - 20.0 10/03/2016 [facility] HEMATOLOGY PTT 33.2 22.9 - 35.8 10/03/2016 [facility] HEMATOLOGY PT 13.3 12.0 - 14.7 10/03/2016 [facility] HEMATOLOGY INR 0.99 0.85 - 1.17 10/03/2016 [facility] HEMATOLOGY MPV 8.4 7.4 - 10.4 10/03/2016 [facility] HEMATOLOGY Platelet 437 133 - 450 10/03/2016 [facility] HEMATOLOGY MCHC 33.4 32.0 - 36.0 10/03/2016 [facility] HEMATOLOGY MCH 28.3 27.0 - 31.0 10/03/2016 [facility] HEMATOLOGY MCV 84.6 80.0 - 94.0 10/03/2016 [facility] HEMATOLOGY RDW 15.9 11.5 - 14.5 10/03/2016 [facility] HEMATOLOGY Hct 36.0 42.0 - 54.0 10/03/2016 [facility] HEMATOLOGY Hgb 12.0 14.0 - 18.0 10/03/2016 [facility] HEMATOLOGY RBC 4.26 4.70 - 6.10 10/03/2016 [facility] HEMATOLOGY WBC 8.3 3.7 - 10.4 10/03/2016 [facility] HEMATOLOGY Eosinophils # 0.3 0.0 - 0.5 10/03/2016 [facility] HEMATOLOGY Segs-Bands # 5.3 1.5 - 8.1 10/03/2016 [facility] HEMATOLOGY Monocytes # 0.9 0.0 - 0.8 10/03/2016 [facility] HEMATOLOGY Lymphocytes # 1.7 1.0 - 5.5 10/03/2016 [facility] HEMATOLOGY Basophils # 0.1 0.0 - 0.2 10/03/2016 [facility] HEMATOLOGY Basophils 1.0 0.0 - 1.0 10/03/2016 [facility] HEMATOLOGY Eosinophils 3.5 0.0 - 4.0 10/03/2016 [facility] HEMATOLOGY Lymphocytes 20.7 20.0 - 40.0 10/03/2016 [facility] HEMATOLOGY Monocytes 10.5 2.0 - 12.0 10/03/2016 [facility] HEMATOLOGY Segs 64.3 45.0 - 75.0 10/03/2016 [facility] DRUG SCREEN U Amph Scr Nega tive *NA* (09/26/16 6:59 PM) Negative 09/26/2016 [facility] DRUG SCREEN U Cannab Scr Nega tive *NA* (09/26/16 6:59 PM) Negative 09/26/2016 [facility] DRUG SCREEN U Cocaine Scr Nega tive *NA* (09/26/16 6:59 PM) Negative 09/26/2016 [facility] DRUG SCREEN U Benzodia Scr Nega tive *NA* (09/26/16 6:59 PM) Negative 09/26/2016 [facility] DRUG SCREEN U Mary Scr Nega tive *NA* (09/26/16 6:59 PM) Negative 09/26/2016 [facility] DRUG SCREEN UDS Note See Note *NA* (09/26/16 6:59 PM) 09/26/2016 [facility] DRUG SCREEN U Phencyc Scr Nega tive *NA* (09/26/16 6:59 PM) Negative 09/26/2016 [facility] DRUG SCREEN U Opiate Scr Nega tive *NA* (09/26/16 6:59 PM) Negative 09/26/2016 [facility] CHEM PANEL Lipase Lvl 88 73 - 393 09/26/2016 [facility] ELECTROLYTES Sodium Lvl 139 135 - 145 09/26/2016 [facility] ELECTROLYTES Potassium Lvl 4.6 3.5 - 5.1 09/26/2016 [facility] ELECTROLYTES Calcium Lvl 8.8 8.5 - 10.5 09/26/2016 [facility] ELECTROLYTES Chloride Lvl 106 95 - 109 09/26/2016 [facility] ELECTROLYTES eGFR 34 09/26/2016 Result Comment: The eGFR is calculated using the [...] from the National Kidney Disease Education Program (NKDEP) which additionally recommends that when the eGFR is used in patients with extremes of body mass index for purposes of drug dosing, the eGFR should be multiplied by the estimated BMI. [facility] ELECTROLYTES BUN 32 7 - 22 09/26/2016 [facility] ELECTROLYTES Glucose Lvl 91 70 - 99 09/26/2016 [facility] ELECTROLYTES Albumin Lvl 3.0 3.5 - 5.0 09/26/2016 [facility] ELECTROLYTES AST 75 0 - 37 09/26/2016 [facility] ELECTROLYTES Creatinine Lvl 2.4 2 0.50 - 1.40 09/26/2016 [facility] ELECTROLYTES ALT 117 0 - 65 09/26/2016 [facility] ELECTROLYTES CO2 22 24 - 32 09/26/2016 [facility] ELECTROLYTES Bili Total 0.4 0.2 - 1.3 09/26/2016 [facility] ELECTROLYTES Alk Phos 153 39 - 136 09/26/2016 [facility] ELECTROLYTES Total Protein 8.3 6.4 - 8.4 09/26/2016 [facility] ELECTROLYTES B/C Ratio 13 6 - 25 09/26/2016 [facility] ELECTROLYTES AGAP 15.6 10.0 - 20.0 09/26/2016 [facility] ELECTROLYTES A/G Ratio 0.6 0.7 - 1.6 09/26/2016 [facility] ELECTROLYTES Globulin 5.3 2.7 - 4.2 09/26/2016 [facility] HEMATOLOGY RDW 16.3 11.5 - 14.5 09/26/2016 [facility] HEMATOLOGY MPV 7.6 7.4 - 10.4 09/26/2016 [facility] HEMATOLOGY MCHC 31.5 32.0 - 36.0 09/26/2016 [facility] HEMATOLOGY Platelet 499 133 - 450 09/26/2016 [facility] HEMATOLOGY MCH 27.6 27.0 - 31.0 09/26/2016 [facility] HEMATOLOGY Hct 34.6 42.0 - 54.0 09/26/2016 [facility] HEMATOLOGY MCV 87.7 80.0 - 94.0 09/26/2016 [facility] HEMATOLOGY Hgb 10.9 14.0 - 18.0 09/26/2016 [facility] HEMATOLOGY RBC 3.95 4.70 - 6.10 09/26/2016 [facility] HEMATOLOGY WBC 7.9 3.7 - 10.4 09/26/2016 [facility] HEMATOLOGY Lymphocytes # 1.7 1.0 - 5.5 09/26/2016 [facility] HEMATOLOGY Eosinophils # 0.7 0.0 - 0.5 09/26/2016 [facility] HEMATOLOGY Basophils # 0.1 0.0 - 0.2 09/26/2016 [facility] HEMATOLOGY Segs-Bands # 4.6 1.5 - 8.1 09/26/2016 [facility] HEMATOLOGY Monocytes # 0.8 0.0 - 0.8 09/26/2016 [facility] HEMATOLOGY Basophils 1.2 0.0 - 1.0 09/26/2016 [facility] HEMATOLOGY Lymphocytes 21.8 20.0 - 40.0 09/26/2016 [facility] HEMATOLOGY Monocytes 9.7 2.0 - 12.0 09/26/2016 [facility] HEMATOLOGY Eosinophils 8.8 0.0 - 4.0 09/26/2016 [facility] HEMATOLOGY Segs 58.5 45.0 - 75.0 09/26/2016 [facility] TOXICOLOGY Acetaminoph Lvl <2 (09/26/16 6:13 PM) 10 - 20 09/26/2016 [facility] TOXICOLOGY Etoh (%) <0.003 09/26/2016 [facility] TOXICOLOGY Ethanol Lvl <3 09/26/2016 [facility] TOXICOLOGY Salicylate Lvl <1.7 0.0 - 30.0 09/26/2016 [facility] ELECTROLYTES AGAP 13.2 10.0 - 20.0 08/18/2016 [facility] ELECTROLYTES Phosphorus 3.6 2.5 - 4.5 08/18/2016 [facility] ELECTROLYTES eGFR 44 08/18/2016 Result Comment: The eGFR is calculated using the [...] from the National Kidney Disease Education Program (NKDEP) which additionally recommends that when the eGFR is used in patients with extremes of body mass index for purposes of drug dosing, the eGFR should be multiplied by the estimated BMI. [facility] ELECTROLYTES Creatinine Lvl 1.9 4 0.50 - 1.40 08/18/2016 [facility] ELECTROLYTES BUN 26 7 - 22 08/18/2016 [facility] ELECTROLYTES Calcium Lvl 9.2 8.5 - 10.5 08/18/2016 [facility] ELECTROLYTES Glucose Lvl 87 70 - 99 08/18/2016 [facility] ELECTROLYTES Sodium Lvl 145 135 - 145 08/18/2016 [facility] ELECTROLYTES Potassium Lvl 4.2 3.5 - 5.1 08/18/2016 [facility] ELECTROLYTES Chloride Lvl 114 95 - 109 08/18/2016 [facility] ELECTROLYTES CO2 22 24 - 32 08/18/2016 [facility] ELECTROLYTES Albumin Lvl 2.9 3.5 - 5.0 08/18/2016 [facility] HEMATOLOGY Monocytes 12.4 2.0 - 12.0 08/18/2016 [facility] HEMATOLOGY Lymphocytes 28.9 20.0 - 40.0 08/18/2016 [facility] HEMATOLOGY Segs 48.2 45.0 - 75.0 08/18/2016 [facility] HEMATOLOGY Segs-Bands # 4.1 1.5 - 8.1 08/18/2016 [facility] HEMATOLOGY Basophils 1.3 0.0 - 1.0 08/18/2016 [facility] HEMATOLOGY Eosinophils 9.2 0.0 - 4.0 08/18/2016 [facility] HEMATOLOGY Eosinophils # 0.8 0.0 - 0.5 08/18/2016 [facility] HEMATOLOGY Monocytes # 1.1 0.0 - 0.8 08/18/2016 [facility] HEMATOLOGY Lymphocytes # 2.5 1.0 - 5.5 08/18/2016 [facility] HEMATOLOGY Basophils # 0.1 0.0 - 0.2 08/18/2016 [facility] HEMATOLOGY MPV 8.0 7.4 - 10.4 08/18/2016 [facility] HEMATOLOGY Platelet 453 133 - 450 08/18/2016 [facility] HEMATOLOGY Hct 33.9 42.0 - 54.0 08/18/2016 [facility] HEMATOLOGY Hgb 11.0 14.0 - 18.0 08/18/2016 [facility] HEMATOLOGY RBC 3.96 4.70 - 6.10 08/18/2016 [facility] HEMATOLOGY WBC 8.6 3.7 - 10.4 08/18/2016 [facility] HEMATOLOGY RDW 17.6 11.5 - 14.5 08/18/2016 [facility] HEMATOLOGY MCHC 32.6 32.0 - 36.0 08/18/2016 [facility] HEMATOLOGY MCH 27.9 27.0 - 31.0 08/18/2016 [facility] HEMATOLOGY MCV 85.5 80.0 - 94.0 08/18/2016 [facility] CHEM PANEL Calcium Lvl 9.0 8.5 - 10.5 08/17/2016 [facility] CHEM PANEL Albumin Lvl 2.9 3.5 - 5.0 08/17/2016 [facility] CHEM PANEL Chloride Lvl 110 95 - 109 08/17/2016 [facility] CHEM PANEL CO2 23 24 - 32 08/17/2016 [facility] CHEM PANEL Glucose Lvl 83 70 - 99 08/17/2016 [facility] CHEM PANEL BUN 27 7 - 22 08/17/2016 [facility] CHEM PANEL Potassium Lvl 4.3 3.5 - 5.1 08/17/2016 [facility] CHEM PANEL Sodium Lvl 144 135 - 145 08/17/2016 [facility] CHEM PANEL Phosphorus 3.9 2.5 - 4.5 08/17/2016 [facility] CHEM PANEL eGFR 47 08/17/2016 Result Comment: The eGFR is calculated using the [...] from the National Kidney Disease Education Program (NKDEP) which additionally recommends that when the eGFR is used in patients with extremes of body mass index for purposes of drug dosing, the eGFR should be multiplied by the estimated BMI. [facility] CHEM PANEL Creatinine Lvl 1.84 0.50 - 1.40 08/17/2016 [facility] CHEM PANEL AGAP 15.3 10.0 - 20.0 08/17/2016 [facility] HEMATOLOGY Eosinophils # 0.8 0.0 - 0.5 08/17/2016 [facility] HEMATOLOGY Monocytes # 0.9 0.0 - 0.8 08/17/2016 [facility] HEMATOLOGY Basophils # 0.1 0.0 - 0.2 08/17/2016 [facility] HEMATOLOGY Segs 53.1 45.0 - 75.0 08/17/2016 [facility] HEMATOLOGY Monocytes 10.1 2.0 - 12.0 08/17/2016 [facility] HEMATOLOGY Lymphocytes 26.4 20.0 - 40.0 08/17/2016 [facility] HEMATOLOGY Eosinophils 9.3 0.0 - 4.0 08/17/2016 [facility] HEMATOLOGY Basophils 1.1 0.0 - 1.0 08/17/2016 [facility] HEMATOLOGY Segs-Bands # 4.5 1.5 - 8.1 08/17/2016 [facility] HEMATOLOGY Lymphocytes # 2.2 1.0 - 5.5 08/17/2016 [facility] HEMATOLOGY WBC 8.4 3.7 - 10.4 08/17/2016 [facility] HEMATOLOGY RBC 4.21 4.70 - 6.10 08/17/2016 [facility] HEMATOLOGY MCH 27.5 27.0 - 31.0 08/17/2016 [facility] HEMATOLOGY Hct 36.4 42.0 - 54.0 08/17/2016 [facility] HEMATOLOGY MCV 86.4 80.0 - 94.0 08/17/2016 [facility] HEMATOLOGY Hgb 11.6 14.0 - 18.0 08/17/2016 [facility] HEMATOLOGY MCHC 31.8 32.0 - 36.0 08/17/2016 [facility] HEMATOLOGY RDW 17.4 11.5 - 14.5 08/17/2016 [facility] HEMATOLOGY Platelet 500 133 - 450 08/17/2016 [facility] MPV 8.2 7.4 - 10.4 08/17/2016 [facility] CHEM PANEL eGFR 43 08/16/2016 Result Comment: The eGFR is calculated using the [...] from the National Kidney Disease Education Program (NKDEP) which additionally recommends that when the eGFR is used in patients with extremes of body mass index for purposes of drug dosing, the eGFR should be multiplied by the estimated BMI. [facility] CHEM PANEL Creatinine Lvl 1.98 0.50 - 1.40 08/16/2016 [facility] CHEM PANEL CO2 24 24 - 32 08/16/2016 [facility] CHEM PANEL Chloride Lvl 111 95 - 109 08/16/2016 [facility] CHEM PANEL Calcium Lvl 8.8 8.5 - 10.5 08/16/2016 [facility] CHEM PANEL BUN 26 7 - 22 08/16/2016 [facility] CHEM PANEL Glucose Lvl 82 70 - 99 08/16/2016 [facility] CHEM PANEL Sodium Lvl 144 135 - 145 08/16/2016 [facility] CHEM PANEL Potassium Lvl 4.4 3.5 - 5.1 08/16/2016 [facility] CHEM PANEL AGAP 13.4 10.0 - 20.0 08/16/2016 [facility] HEMATOLOGY MPV 8.1 7.4 - 10.4 08/16/2016 [facility] HEMATOLOGY Platelet 456 133 - 450 08/16/2016 [facility] HEMATOLOGY RBC 3.95 4.70 - 6.10 08/16/2016 [facility] HEMATOLOGY WBC 8.6 3.7 - 10.4 08/16/2016 [facility] HEMATOLOGY Hgb 10.9 14.0 - 18.0 08/16/2016 [facility] HEMATOLOGY Hct 33.4 42.0 - 54.0 08/16/2016 [facility] HEMATOLOGY MCV 84.6 80.0 - 94.0 08/16/2016 [facility] HEMATOLOGY MCH 27.6 27.0 - 31.0 08/16/2016 [facility] HEMATOLOGY RDW 17.5 11.5 - 14.5 08/16/2016 [facility] HEMATOLOGY MCHC 32.6 32.0 - 36.0 08/16/2016 [facility] HEMATOLOGY Eosinophils # 0.7 0.0 - 0.5 08/16/2016 [facility] HEMATOLOGY Lymphocytes # 2.3 1.0 - 5.5 08/16/2016 [facility] HEMATOLOGY Monocytes # 0.9 0.0 - 0.8 08/16/2016 [facility] HEMATOLOGY Basophils # 0.1 0.0 - 0.2 08/16/2016 [facility] HEMATOLOGY Eosinophils 7.8 0.0 - 4.0 08/16/2016 [facility] HEMATOLOGY Lymphocytes 27.1 20.0 - 40.0 08/16/2016 [facility] HEMATOLOGY Monocytes 10.9 2.0 - 12.0 08/16/2016 [facility] HEMATOLOGY Segs-Bands # 4.6 1.5 - 8.1 08/16/2016 [facility] HEMATOLOGY Basophils 1.2 0.0 - 1.0 08/16/2016 [facility] HEMATOLOGY Segs 53.0 45.0 - 75.0 08/16/2016 [facility] TOXICOLOGY Vanco Tr 14.6 08/15/2016 [facility] TOXICOLOGY Vanco Tr TND 1000 08/15/2016 [facility] TOXICOLOGY Vanco Tr TND 2200 08/14/2016 [facility] TOXICOLOGY Vanco Tr 19.5 08/14/2016 [facility] CHEM PANEL Magnesium Lvl 2.3 1.8 - 2.4 08/13/2016 [facility] CHEM PANEL Phosphorus 3.9 2.5 - 4.5 08/13/2016 [facility] CHEM PANEL Albumin Lvl 2.8 3.5 - 5.0 08/13/2016 [facility] HEMATOLOGY Sed Rate 78 0 - 15 08/12/2016 [facility] IMMUNOLOGY C-REACTIVE PROTEIN 10.8 <=2.9 mg/L 08/12/2016 [facility] CHEM PANEL AST 17 0 - 37 08/12/2016 [facility] CHEM PANEL Alk Phos 107 39 - 136 08/12/2016 [facility] CHEM PANEL Bili Total 0.2 0.2 - 1.3 08/12/2016 [facility] CHEM PANEL Total Protein 7.7 6.4 - 8.4 08/12/2016 [facility] CHEM PANEL ALT 28 0 - 65 08/12/2016 [facility] CHEM PANEL B/C Ratio 23 6 - 25 08/12/2016 [facility] CHEM PANEL Globulin 4.5 2.7 - 4.2 08/12/2016 [facility] CHEM PANEL A/G Ratio 0.7 0.7 - 1.6 08/12/2016 [facility] ELECTROLYTES AGAP 16.9 10.0 - 20.0 06/13/2016 [facility] ELECTROLYTES Potassium Lvl 3.9 3.5 - 5.1 06/13/2016 [facility] ELECTROLYTES Sodium Lvl 138 135 - 145 06/13/2016 [facility] ELECTROLYTES Creatinine Lvl 2.6 0 0.50 - 1.40 06/13/2016 [facility] ELECTROLYTES eGFR 27 06/13/2016 Result Comment: The eGFR is calculated using the [...] from the National Kidney Disease Education Program (NKDEP) which additionally recommends that when the eGFR is used in patients with extremes of body mass index for purposes of drug dosing, the eGFR should be multiplied by the estimated BMI. [facility] ELECTROLYTES CO2 20 24 - 32 06/13/2016 [facility] ELECTROLYTES Calcium Lvl 9.7 8.5 - 10.5 06/13/2016 [facility] ELECTROLYTES Chloride Lvl 105 95 - 109 06/13/2016 [facility] ELECTROLYTES BUN 27 7 - 22 06/13/2016 [facility] ELECTROLYTES Glucose Lvl 73 70 - 99 06/13/2016 [facility] CHEM PANEL eGFR 27 06/12/2016 Result Comment: The eGFR is calculated using the [...] from the National Kidney Disease Education Program (NKDEP) which additionally recommends that when the eGFR is used in patients with extremes of body mass index for purposes of drug dosing, the eGFR should be multiplied by the estimated BMI. [facility] CHEM PANEL Calcium Lvl 9.9 8.5 - 10.5 06/12/2016 [facility] CHEM PANEL CO2 24 24 - 32 06/12/2016 [facility] CHEM PANEL Chloride Lvl 107 95 - 109 06/12/2016 [facility] CHEM PANEL Potassium Lvl 4.3 3.5 - 5.1 06/12/2016 Result Comment: Specimen Slightly Hemolyzed. [facility] CHEM PANEL Sodium Lvl 141 135 - 145 06/12/2016 [facility] CHEM PANEL BUN 28 7 - 22 06/12/2016 [facility] CHEM PANEL Glucose Lvl 83 70 - 99 06/12/2016 [facility] CHEM PANEL Creatinine Lvl 2.60 0.50 - 1.40 06/12/2016 [facility] CHEM PANEL AGAP 14.3 10.0 - 20.0 06/12/2016 [facility] Lymphocytes 25.1 20.0 - 40.0 06/12/2016 [facility] HEMATOLOGY Monocytes 9.0 2.0 - 12.0 06/12/2016 [facility] HEMATOLOGY Segs 51.3 45.0 - 75.0 06/12/2016 [facility] Monocytes # 0.5 0.0 - 0.8 06/12/2016 [facility] Lymphocytes # 1.4 1.0 - 5.5 06/12/2016 [facility] HEMATOLOGY Eosinophils # 0.6 0.0 - 0.5 06/12/2016 [facility] Basophils # 0.1 0.0 - 0.2 06/12/2016 [facility] Segs-Bands # 2.8 1.5 - 8.1 06/12/2016 [facility] Basophils 2.7 0.0 - 1.0 06/12/2016 [facility] Eosinophils 11.9 0.0 - 4.0 06/12/2016 [facility] INR 1.05 0.85 - 1.17 06/12/2016 [facility] PTT 35.5 22.9 - 35.8 06/12/2016 [facility] PT 13.9 12.0 - 14.7 06/12/2016 [facility] MPV 8.1 7.4 - 10.4 06/12/2016 [facility] MCHC 31.8 32.0 - 36.0 06/12/2016 [facility] Platelet 481 133 - 450 06/12/2016 [facility] RDW 21.2 11.5 - 14.5 06/12/2016 [facility] MCH 26.9 27.0 - 31.0 06/12/2016 [facility] MCV 84.4 80.0 - 94.0 06/12/2016 [facility] Hct 34.3 42.0 - 54.0 06/12/2016 [facility] RBC 4.07 4.70 - 6.10 06/12/2016 [facility] HEMATOLOGY WBC 5.5 3.7 - 10.4 06/12/2016 [facility] Hgb 10.9 14.0 - 18.0 06/12/2016 [facility] TOXICOLOGY Vanco Tr TND 1600 06/09/2016 [facility] TOXICOLOGY Vanco Tr 23.3 06/09/2016 [facility] CHEM PANEL eGFR 31 06/09/2016 Result Comment: The eGFR is calculated using the [...] from the National Kidney Disease Education Program (NKDEP) which additionally recommends that when the eGFR is used in patients with extremes of body mass index for purposes of drug dosing, the eGFR should be multiplied by the estimated BMI. [facility] CHEM PANEL AGAP 14.4 10.0 - 20.0 06/09/2016 [facility] CHEM PANEL Chloride Lvl 108 95 - 109 06/09/2016 [facility] CHEM PANEL Sodium Lvl 141 135 - 145 06/09/2016 [facility] CHEM PANEL BUN 20 7 - 22 06/09/2016 [facility] CHEM PANEL Creatinine Lvl 2.30 0.50 - 1.40 06/09/2016 [facility] CHEM PANEL Glucose Lvl 84 70 - 99 06/09/2016 [facility] CHEM PANEL Calcium Lvl 9.4 8.5 - 10.5 06/09/2016 [facility] CHEM PANEL Potassium Lvl 3.4 3.5 - 5.1 06/09/2016 [facility] CHEM PANEL CO2 22 24 - 32 06/09/2016 [facility] HEMATOLOGY Eosinophils 6.1 0.0 - 4.0 06/07/2016 [facility] HEMATOLOGY Monocytes 8.5 2.0 - 12.0 06/07/2016 [facility] Monocytes # 0.8 0.0 - 0.8 06/07/2016 [facility] HEMATOLOGY Segs-Bands # 5.8 1.5 - 8.1 06/07/2016 [facility] HEMATOLOGY Basophils 2.4 0.0 - 1.0 06/07/2016 [facility] HEMATOLOGY Basophils # 0.2 0.0 - 0.2 06/07/2016 [facility] HEMATOLOGY Eosinophils # 0.5 0.0 - 0.5 06/07/2016 [facility] HEMATOLOGY Lymphocytes # 1.6 1.0 - 5.5 06/07/2016 [facility] Lymphocytes 18.0 20.0 - 40.0 06/07/2016 [facility] HEMATOLOGY Segs 65.0 45.0 - 75.0 06/07/2016 [facility] HEMATOLOGY Platelet 521 133 - 450 06/07/2016 [facility] HEMATOLOGY RDW 22.0 11.5 - 14.5 06/07/2016 [facility] Hct 31.6 42.0 - 54.0 06/07/2016 [facility] MCHC 32.5 32.0 - 36.0 06/07/2016 [facility] MCH 26.6 27.0 - 31.0 06/07/2016 [facility] MCV 81.8 80.0 - 94.0 06/07/2016 [facility] MPV 7.9 7.4 - 10.4 06/07/2016 [facility] Hgb 10.3 14.0 - 18.0 06/07/2016 [facility] RBC 3.86 4.70 - 6.10 06/07/2016 [facility] WBC 9.0 3.7 - 10.4 06/07/2016 [facility] TOXICOLOGY Vanco [place] TND 49422 600 06/05/2016 [facility] TOXICOLOGY Vanco Tr 18.9 06/05/2016 [facility] TOXICOLOGY Vanco Tr TND 17808 130 2016 [facility] TOXICOLOGY Vanco Tr 29.3 2016 [facility] Lymphocytes 18.4 20.0 - 40.0 05/31/2016 [facility] HEMATOLOGY Segs 61.2 45.0 - 75.0 05/31/2016 [facility] HEMATOLOGY Monocytes 8.7 2.0 - 12.0 05/31/2016 [facility] HEMATOLOGY Basophils 2.4 0.0 - 1.0 05/31/2016 [facility] HEMATOLOGY Eosinophils 9.3 0.0 - 4.0 05/31/2016 [facility] HEMATOLOGY Segs-Bands # 6.0 1.5 - 8.1 05/31/2016 [facility] HEMATOLOGY Lymphocytes # 1.8 1.0 - 5.5 05/31/2016 [facility] HEMATOLOGY Monocytes # 0.9 0.0 - 0.8 05/31/2016 [facility] HEMATOLOGY Basophils # 0.2 0.0 - 0.2 05/31/2016 [facility] HEMATOLOGY Eosinophils # 0.9 0.0 - 0.5 05/31/2016 [facility] HEMATOLOGY Hgb 9.7 14.0 - 18.0 05/31/2016 [facility] WBC 9.8 3.7 - 10.4 05/31/2016 [facility] RBC 3.57 4.70 - 6.10 05/31/2016 [facility] RDW 22.3 11.5 - 14.5 05/31/2016 [facility] MCH 27.2 27.0 - 31.0 05/31/2016 [facility] MCHC 33.3 32.0 - 36.0 05/31/2016 [facility] Hct 29.1 42.0 - 54.0 05/31/2016 [facility] MCV 81.5 80.0 - 94.0 05/31/2016 [facility] MPV 7.5 7.4 - 10.4 05/31/2016 [facility] Platelet 562 133 - 450 05/31/2016 [facility] Plt Morph Twyla l (05/28/16 12:55 PM) 05/28/2016 [facility] RBC Morph Twyla l (05/28/16 12:55 PM) 05/28/2016 [facility] CHEM PANEL eGFR 27 05/27/2016 Result Comment: The eGFR is calculated using the [...] from the National Kidney Disease Education Program (NKDEP) which additionally recommends that when the eGFR is used in patients with extremes of body mass index for purposes of drug dosing, the eGFR should be multiplied by the estimated BMI. [facility] CHEM PANEL Creatinine Lvl 2.60 0.50 - 1.40 05/27/2016 [facility] CHEM PANEL BUN 20 7 - 22 05/27/2016 [facility] CHEM PANEL Glucose Lvl 75 70 - 99 05/27/2016 [facility] CHEM PANEL Sodium Lvl 138 135 - 145 05/27/2016 [facility] CHEM PANEL CO2 22 24 - 32 05/27/2016 [facility] CHEM PANEL Chloride Lvl 104 95 - 109 05/27/2016 [facility] CHEM PANEL AGAP 15.0 10.0 - 20.0 05/27/2016 [facility] CHEM PANEL Calcium Lvl 8.5 8.5 - 10.5 05/27/2016 [facility] CHEM PANEL Potassium Lvl 3.0 3.5 - 5.1 05/27/2016 Result Comment: Critical Result(s) hazel d to Alondra Noguera at 05/27/2016 08:53 bySN/RB. Read back OK. [facility] TOXICOLOGY Vanco Lvl 19.4 05/26/2016 [facility] ELECTROLYTES Sodium Lvl 139 135 - 145 05/26/2016 [facility] ELECTROLYTES Chloride Lvl 104 95 - 109 05/26/2016 [facility] ELECTROLYTES Calcium Lvl 9.0 8.5 - 10.5 05/26/2016 [facility] ELECTROLYTES Potassium Lvl 3.3 3.5 - 5.1 05/26/2016 [facility] ELECTROLYTES eGFR 28 05/26/2016 Result Comment: The eGFR is calculated using the [...] from the National Kidney Disease Education Program (NKDEP) which additionally recommends that when the eGFR is used in patients with extremes of body mass index for purposes of drug dosing, the eGFR should be multiplied by the estimated BMI. [facility] ELECTROLYTES BUN 20 7 - 22 05/26/2016 [facility] ELECTROLYTES AGAP 16.3 10.0 - 20.0 05/26/2016 [facility] ELECTROLYTES CO2 22 24 - 32 05/26/2016 [facility] ELECTROLYTES Creatinine Lvl 2.5 6 0.50 - 1.40 05/26/2016 [facility] ELECTROLYTES Glucose Lvl 87 70 - 99 05/26/2016 [facility] ELECTROLYTES AGAP 16.5 10.0 - 20.0 05/24/2016 [facility] ELECTROLYTES Sodium Lvl 138 135 - 145 05/24/2016 [facility] ELECTROLYTES Potassium Lvl 3.5 3.5 - 5.1 05/24/2016 [facility] ELECTROLYTES Chloride Lvl 103 95 - 109 05/24/2016 [facility] ELECTROLYTES CO2 22 24 - 32 05/24/2016 [facility] ELECTROLYTES Calcium Lvl 8.8 8.5 - 10.5 05/24/2016 [facility] ELECTROLYTES Glucose Lvl 90 70 - 99 05/24/2016 [facility] ELECTROLYTES eGFR 25 05/24/2016 Result Comment: The eGFR is calculated using the [...] from the National Kidney Disease Education Program (NKDEP) which additionally recommends that when the eGFR is used in patients with extremes of body mass index for purposes of drug dosing, the eGFR should be multiplied by the estimated BMI. [facility] ELECTROLYTES Creatinine Lvl 2.8 1 0.50 - 1.40 05/24/2016 [facility] ELECTROLYTES BUN 25 7 - 22 05/24/2016 [facility] HEMATOLOGY MPV 7.3 7.4 - 10.4 05/24/2016 [facility] HEMATOLOGY RDW 21.6 11.5 - 14.5 05/24/2016 [facility] HEMATOLOGY Platelet 635 133 - 450 05/24/2016 [facility] HEMATOLOGY MCH 26.1 27.0 - 31.0 05/24/2016 [facility] HEMATOLOGY MCHC 32.5 32.0 - 36.0 05/24/2016 [facility] HEMATOLOGY Hct 29.3 42.0 - 54.0 05/24/2016 [facility] HEMATOLOGY MCV 80.4 80.0 - 94.0 05/24/2016 [facility] HEMATOLOGY RBC 3.64 4.70 - 6.10 05/24/2016 [facility] HEMATOLOGY Hgb 9.5 14.0 - 18.0 05/24/2016 [facility] HEMATOLOGY WBC 10.0 3.7 - 10.4 05/24/2016 [facility] HEMATOLOGY Eosinophils 9.1 0.0 - 4.0 05/24/2016 [facility] HEMATOLOGY Monocytes 7.5 2.0 - 12.0 05/24/2016 [facility] HEMATOLOGY Lymphocytes 15.1 20.0 - 40.0 05/24/2016 [facility] HEMATOLOGY Segs 66.6 45.0 - 75.0 05/24/2016 [facility] HEMATOLOGY Basophils 1.7 0.0 - 1.0 05/24/2016 [facility] Segs-Bands # 6.7 1.5 - 8.1 05/24/2016 [facility] HEMATOLOGY Monocytes # 0.7 0.0 - 0.8 05/24/2016 [facility] HEMATOLOGY Eosinophils # 0.9 0.0 - 0.5 05/24/2016 [facility] HEMATOLOGY Lymphocytes # 1.5 1.0 - 5.5 05/24/2016 [facility] HEMATOLOGY Basophils # 0.2 0.0 - 0.2 05/24/2016 [facility] TOXICOLOGY Vanco Lvl 18.2 05/24/2016 [facility] TOXICOLOGY Vanco Lvl 18.8 05/23/2016 [facility] CHEM PANEL Procalcitonin Lvl 0.16 0.00 - 0.10 05/22/2016 [facility] HEMATOLOGY MPV 7.3 7.4 - 10.4 05/22/2016 [facility] HEMATOLOGY MCH 25.3 27.0 - 31.0 05/22/2016 [facility] HEMATOLOGY MCHC 31.2 32.0 - 36.0 05/22/2016 [facility] HEMATOLOGY Platelet 665 133 - 450 05/22/2016 [facility] HEMATOLOGY RDW 21.6 11.5 - 14.5 05/22/2016 [facility] HEMATOLOGY MCV 80.9 80.0 - 94.0 05/22/2016 [facility] HEMATOLOGY Hct 28.6 42.0 - 54.0 05/22/2016 [facility] HEMATOLOGY Hgb 8.9 14.0 - 18.0 05/22/2016 [facility] HEMATOLOGY RBC 3.54 4.70 - 6.10 05/22/2016 [facility] HEMATOLOGY WBC 8.9 3.7 - 10.4 05/22/2016 [facility] HEMATOLOGY Basophils # 0.2 0.0 - 0.2 05/22/2016 [facility] HEMATOLOGY Eosinophils # 0.9 0.0 - 0.5 05/22/2016 [facility] HEMATOLOGY Eosinophils 10.1 0.0 - 4.0 05/22/2016 [facility] HEMATOLOGY Segs-Bands # 5.4 1.5 - 8.1 05/22/2016 [facility] HEMATOLOGY Basophils 1.9 0.0 - 1.0 05/22/2016 [facility] HEMATOLOGY Monocytes # 0.9 0.0 - 0.8 05/22/2016 [facility] HEMATOLOGY Lymphocytes # 1.6 1.0 - 5.5 05/22/2016 [facility] HEMATOLOGY Monocytes 9.6 2.0 - 12.0 05/22/2016 [facility] HEMATOLOGY Lymphocytes 17.6 20.0 - 40.0 05/22/2016 [facility] HEMATOLOGY Segs 60.8 45.0 - 75.0 05/22/2016 [facility] HEMATOLOGY RBC Morph Twyla l (05/22/16 4:17 AM) 05/22/2016 [facility] HEMATOLOGY Plt Morph Twyla l (05/22/16 4:17 AM) 05/22/2016 [facility] IMMUNOLOGY C-REACTIVE PROTEIN 43.6 <=2.9 mg/L 05/22/2016 [facility] HEMATOLOGY MPV 7.3 7.4 - 10.4 05/21/2016 [facility] HEMATOLOGY RBC 4.06 4.70 - 6.10 05/21/2016 [facility] HEMATOLOGY Hgb 10.2 14.0 - 18.0 05/21/2016 [facility] HEMATOLOGY WBC 10.2 3.7 - 10.4 05/21/2016 [facility] HEMATOLOGY Platelet 721 133 - 450 05/21/2016 [facility] HEMATOLOGY RDW 22.3 11.5 - 14.5 05/21/2016 [facility] HEMATOLOGY MCHC 31.2 32.0 - 36.0 05/21/2016 [facility] HEMATOLOGY MCV 80.6 80.0 - 94.0 05/21/2016 [facility] HEMATOLOGY MCH 25.1 27.0 - 31.0 05/21/2016 [facility] HEMATOLOGY Hct 32.7 42.0 - 54.0 05/21/2016 [facility] HEMATOLOGY Basophils # 0.1 0.0 - 0.2 05/21/2016 [facility] HEMATOLOGY Segs-Bands # 7.7 1.5 - 8.1 05/21/2016 [facility] HEMATOLOGY Lymphocytes # 1.4 1.0 - 5.5 05/21/2016 [facility] HEMATOLOGY Monocytes # 0.6 0.0 - 0.8 05/21/2016 [facility] HEMATOLOGY Eosinophils # 0.5 0.0 - 0.5 05/21/2016 [facility] HEMATOLOGY Eosinophils 4.5 0.0 - 4.0 05/21/2016 [facility] HEMATOLOGY Basophils 1.2 0.0 - 1.0 05/21/2016 [facility] HEMATOLOGY Lymphocytes 13.3 20.0 - 40.0 05/21/2016 [facility] HEMATOLOGY Segs 74.9 45.0 - 75.0 05/21/2016 [facility] HEMATOLOGY Monocytes 6.1 2.0 - 12.0 05/21/2016 [facility] HEMATOLOGY RBC Morph Twyla l (05/20/16 5:43 AM) 05/20/2016 [facility] HEMATOLOGY Plt Morph Twyla l (05/20/16 5:43 AM) 05/20/2016 [facility] IMMUNOLOGY Prealbumin 22.1 18.0 - 45.0 05/20/2016 [facility] CHEM PANEL Lactic Acid Lvl 0.8 0.5 - 2.2 05/20/2016 [facility] DRUG SCREEN UDS Note See Note (05/19/16 1:33 PM) 05/19/2016 [facility] DRUG SCREEN U Amph Scr Nega tive *NA* (05/19/16 1:33 PM) Negative 05/19/2016 [facility] DRUG SCREEN U Cocaine Scr Nega tive *NA* (05/19/16 1:33 PM) Negative 05/19/2016 [facility] DRUG SCREEN U Cannab Scr Nega tive *NA* (05/19/16 1:33 PM) Negative 05/19/2016 [facility] DRUG SCREEN U Propoxyph Scr Nega tive *NA* (05/19/16 1:33 PM) Negative 05/19/2016 [facility] DRUG SCREEN U Phencyc Scr Nega tive *NA* (05/19/16 1:33 PM) Negative 05/19/2016 [facility] DRUG SCREEN U Methadone Scr Nega tive *NA* (05/19/16 1:33 PM) Negative 05/19/2016 [facility] DRUG SCREEN U Opiate Scr Nega tive *NA* (05/19/16 1:33 PM) Negative 05/19/2016 [facility] DRUG SCREEN U Mary Scr Nega tive *NA* (05/19/16 1:33 PM) Negative 05/19/2016 [facility] DRUG SCREEN U Benzodia Scr Nega tive *NA* (05/19/16 1:33 PM) Negative 05/19/2016 [facility] URINE AND STOOL UA Sq Epi None Seen 05/19/2016 [facility] URINE AND STOOL UA Urobilinogen <=1.0 mg/dL 0.1 - 1.0 05/19/2016 [facility] URINE AND STOOL UA Ketones Negative 05/19/2016 [facility] URINE AND STOOL UA RBC 7 0 - 2 05/19/2016 [facility] URINE AND STOOL UA Leuk Est Negative (05/19/16 1:33 PM) Negative 05/19/2016 [facility] URINE AND STOOL UA Nitrite Negative (05/19/16 1:33 PM) Negative 05/19/2016 [facility] URINE AND STOOL UA WBC 1 0 - 5 05/19/2016 [facility] URINE AND STOOL UA Turbidity Clear (05/19/16 1:33 PM) Clear 05/19/2016 [facility] URINE AND STOOL UA Color Light Yellow *NA* (05/19/16 1:33 PM) Yellow 05/19/2016 [facility] URINE AND STOOL UA Protein 100 mg/dL Negative mg/dL 05/19/2016 [facility] URINE AND STOOL UA Blood Moderate *ABN* (05/19/16 1:33 PM) Negative 05/19/2016 [facility] URINE AND STOOL UA Bili Negative *NA* (05/19/16 1:33 PM) Negative 05/19/2016 [facility] URINE AND STOOL UA Glucose Negative mg/dL Negative mg/dL 05/19/[address] [facility] URINE AND STOOL UA Spec Grav 1.009 <=1.030 05/19/2016 [facility] URINE AND STOOL UA pH 6.0 5.0 - 8.0 05/19/2016 [facility] CHEM PANEL Phosphorus 4.5 2.5 - 4.5 05/19/2016 [facility] CHEM PANEL Magnesium Lvl 2.2 1.8 - 2.4 05/19/2016 [facility] CARDIAC ENZYMES CK MB Index 2.5 0.0 - 2.5 05/19/2016 [facility] CARDIAC ENZYMES Troponin-I 0.04 0.00 - 0.40 05/19/2016 [facility] CARDIAC ENZYMES CK MB 1.4 0.5 - 3.6 05/19/2016 [facility] CARDIAC ENZYMES Total CK 57 12 - 191 05/19/2016 [facility] CARDIAC ENZYMES BNP 47 <=100 pg/mL 05/19/2016 [facility] CHEM PANEL B/C Ratio 11 6 - 25 05/19/2016 [facility] CHEM PANEL A/G Ratio 0.5 0.7 - 1.6 05/19/2016 [facility] CHEM PANEL Globulin 5.9 2.7 - 4.2 05/19/2016 [facility] CHEM PANEL Alk Phos 127 39 - 136 05/19/2016 [facility] CHEM PANEL Bili Total 0.2 0.2 - 1.3 05/19/2016 [facility] CHEM PANEL Albumin Lvl 3.0 3.5 - 5.0 05/19/2016 [facility] CHEM PANEL ALT 8 0 - 65 05/19/2016 [facility] CHEM PANEL AST 8 0 - 37 05/19/2016 [facility] CHEM PANEL Total Protein 8.9 6.4 - 8.4 05/19/2016 [facility] CHEM PANEL Lactic Acid Lvl 1.2 0.5 - 2.2 05/19/2016 [facility] CHEM PANEL Procalcitonin Lvl 0.21 0.00 - 0.10 05/19/2016 [facility] HEMATOLOGY PTT 32.2 22.9 - 35.8 05/19/2016 [facility] HEMATOLOGY PT 14.3 12.0 - 14.7 05/19/2016 [facility] HEMATOLOGY INR 1.09 0.85 - 1.17 05/19/2016 [facility] IMMUNOLOGY C-REACTIVE PROTEIN 110.0 <=2.9 mg/L 05/19/2016 [facility] CHEM PANEL Calcium Lvl 8.9 8.5 - 10.5 04/28/2016 [facility] CHEM PANEL Chloride Lvl 104 95 - 109 04/28/2016 [facility] CHEM PANEL Potassium Lvl 3.7 3.5 - 5.1 04/28/2016 [facility] CHEM PANEL Sodium Lvl 137 135 - 145 04/28/2016 [facility] CHEM PANEL Creatinine Lvl 3.15 0.50 - 1.40 04/28/2016 [facility] CHEM PANEL BUN 36 7 - 22 04/28/2016 [facility] CHEM PANEL Glucose Lvl 82 70 - 99 04/28/2016 [facility] CHEM PANEL AGAP 17.7 10.0 - 20.0 04/28/2016 [facility] CHEM PANEL CO2 19 24 - 32 04/28/2016 [facility] CHEM PANEL eGFR 22 04/28/2016 Result Comment: The eGFR is calculated using the [...] from the National Kidney Disease Education Program (NKDEP) which additionally recommends that when the eGFR is used in patients with extremes of body mass index for purposes of drug dosing, the eGFR should be multiplied by the estimated BMI. [facility] ELECTROLYTES AGAP 16.8 10.0 - 20.0 04/27/2016 [facility] ELECTROLYTES Calcium Lvl 9.1 8.5 - 10.5 04/27/2016 [facility] ELECTROLYTES CO2 22 24 - 32 04/27/2016 [facility] ELECTROLYTES Potassium Lvl 3.8 3.5 - 5.1 04/27/2016 [facility] ELECTROLYTES BUN 39 7 - 22 04/27/2016 [facility] ELECTROLYTES Sodium Lvl 140 135 - 145 04/27/2016 [facility] ELECTROLYTES Chloride Lvl 105 95 - 109 04/27/2016 [facility] ELECTROLYTES Glucose Lvl 90 70 - 99 04/27/2016 [facility] ELECTROLYTES Creatinine Lvl 3.0 7 0.50 - 1.40 04/27/2016 [facility] ELECTROLYTES eGFR 22 04/27/2016 Result Comment: The eGFR is calculated using the [...] from the National Kidney Disease Education Program (NKDEP) which additionally recommends that when the eGFR is used in patients with extremes of body mass index for purposes of drug dosing, the eGFR should be multiplied by the estimated BMI. [facility] HEMATOLOGY Segs-Bands # 10.3 1.5 - 8.1 04/27/2016 [facility] HEMATOLOGY Basophils 0.6 0.0 - 1.0 04/27/2016 [facility] HEMATOLOGY Lymphocytes # 1.5 1.0 - 5.5 04/27/2016 [facility] HEMATOLOGY Basophils # 0.1 0.0 - 0.2 04/27/2016 [facility] HEMATOLOGY Eosinophils # 0.3 0.0 - 0.5 04/27/2016 [facility] HEMATOLOGY Microcyte 1+ *ABN* (04/27/16 4:10 AM) None Seen 04/27/2016 [facility] HEMATOLOGY Eosinophils 1.9 0.0 - 4.0 04/27/2016 [facility] HEMATOLOGY Monocytes 6.8 2.0 - 12.0 04/27/2016 [facility] HEMATOLOGY Monocytes # 0.9 0.0 - 0.8 04/27/2016 [facility] HEMATOLOGY Plt Morph Twyla l (04/27/16 4:10 AM) 04/27/2016 [facility] HEMATOLOGY Lymphocytes 11.6 20.0 - 40.0 04/27/2016 [facility] HEMATOLOGY Segs 79.1 45.0 - 75.0 04/27/2016 [facility] HEMATOLOGY WBC 13.1 3.7 - 10.4 04/27/2016 [facility] HEMATOLOGY Hct 26.4 42.0 - 54.0 04/27/2016 [facility] HEMATOLOGY MCV 77.1 80.0 - 94.0 04/27/2016 [facility] HEMATOLOGY RBC 3.42 4.70 - 6.10 04/27/2016 [facility] HEMATOLOGY Hgb 8.6 14.0 - 18.0 04/27/2016 [facility] HEMATOLOGY Platelet 840 133 - 450 04/27/2016 [facility] HEMATOLOGY MCH 25.1 27.0 - 31.0 04/27/2016 [facility] HEMATOLOGY RDW 18.5 11.5 - 14.5 04/27/2016 [facility] HEMATOLOGY MPV 6.0 7.4 - 10.4 04/27/2016 [facility] HEMATOLOGY MCHC 32.6 32.0 - 36.0 04/27/2016 [facility] DRUG SCREEN U Amph Scr Nega tive *NA* (04/26/16 5:34 PM) Negative 04/26/2016 [facility] DRUG SCREEN U Cannab Scr Nega tive *NA* (04/26/16 5:34 PM) Negative 04/26/2016 [facility] DRUG SCREEN U Mary Scr Nega tive *NA* (04/26/16 5:34 PM) Negative 04/26/2016 [facility] DRUG SCREEN U Cocaine Scr Nega tive *NA* (04/26/16 5:34 PM) Negative 04/26/2016 [facility] DRUG SCREEN U Benzodia Scr Posi tive *ABN* (04/26/16 5:34 PM) Negative 04/26/2016 [facility] DRUG SCREEN UDS Note See Note (04/26/16 5:34 PM) 04/26/2016 [facility] DRUG SCREEN U Phencyc Scr Nega tive *NA* (04/26/16 5:34 PM) Negative 04/26/2016 [facility] DRUG SCREEN U Opiate Scr Posi tive *ABN* (04/26/16 5:34 PM) Negative 04/26/2016 [facility] CARDIAC ENZYMES CK MB Index 1.4 0.0 - 2.5 04/26/2016 [facility] CARDIAC ENZYMES CK MB 2.1 0.5 - 3.6 04/26/2016 [facility] CARDIAC ENZYMES Troponin-I 0.02 0.00 - 0.40 04/26/2016 [facility] CARDIAC ENZYMES Total CK 148 12 - 191 04/26/2016 [facility] CHEM PANEL BUN 44 7 - 22 04/26/2016 [facility] CHEM PANEL Creatinine Lvl 3.32 0.50 - 1.40 04/26/2016 [facility] [employer] CHEM PANEL CO2 21 24 - 32 04/26/2016 [facility] CHEM PANEL Total Protein 9.2 6.4 - 8.4 04/26/2016 [facility] CHEM PANEL ALT 18 0 - 65 04/26/2016 [facility] CHEM PANEL Glucose Lvl 90 70 - 99 04/26/2016 [facility] CHEM PANEL eGFR 20 04/26/2016 Result Comment: The eGFR is calculated using the [...] from the National Kidney Disease Education Program (NKDEP) which additionally recommends that when the eGFR is used in patients with extremes of body mass index for purposes of drug dosing, the eGFR should be multiplied by the estimated BMI. [facility] CHEM PANEL AGAP 18.4 10.0 - 20.0 04/26/2016 [facility] CHEM PANEL B/C Ratio 13 6 - 25 04/26/2016 [facility] CHEM PANEL Globulin 6.1 2.7 - 4.2 04/26/2016 [facility] CHEM PANEL A/G Ratio 0.5 0.7 - 1.6 04/26/2016 [facility] CHEM PANEL AST 14 0 - 37 04/26/2016 [facility] CHEM PANEL Alk Phos 144 39 - 136 04/26/2016 [facility] CHEM PANEL Bili Total 0.2 0.2 - 1.3 04/26/2016 [facility] [employer] CHEM PANEL Potassium Lvl 4.4 3.5 - 5.1 04/26/2016 [facility] [employer] CHEM PANEL Sodium Lvl 137 135 - 145 04/26/2016 [facility] [employer] CHEM PANEL Chloride Lvl 102 95 - 109 04/26/2016 [facility] [employer] CHEM PANEL Albumin Lvl 3.1 3.5 - 5.0 04/26/2016 [facility] CHEM PANEL Calcium Lvl 9.3 8.5 - 10.5 04/26/2016 [facility] HEMATOLOGY Microcyte 1+ *ABN* (04/26/16 4:26 PM) None Seen 04/26/2016 [facility] HEMATOLOGY Segs 78.2 45.0 - 75.0 04/26/2016 [facility] HEMATOLOGY Basophils 0.7 0.0 - 1.0 04/26/2016 [facility] HEMATOLOGY Segs-Bands # 13.9 1.5 - 8.1 04/26/2016 [facility] HEMATOLOGY Monocytes 4.7 2.0 - 12.0 04/26/2016 [facility] HEMATOLOGY Lymphocytes 14.3 20.0 - 40.0 04/26/2016 [facility] HEMATOLOGY Lymphocytes # 2.5 1.0 - 5.5 04/26/2016 [facility] HEMATOLOGY Eosinophils 2.1 0.0 - 4.0 04/26/2016 [facility] HEMATOLOGY Monocytes # 0.8 0.0 - 0.8 04/26/2016 [facility] HEMATOLOGY Eosinophils # 0.4 0.0 - 0.5 04/26/2016 [facility] HEMATOLOGY Basophils # 0.1 0.0 - 0.2 04/26/2016 [facility] HEMATOLOGY PTT 34.5 22.9 - 35.8 04/26/2016 [facility] HEMATOLOGY Hgb 8.7 14.0 - 18.0 04/26/2016 [facility] HEMATOLOGY RBC 3.49 4.70 - 6.10 04/26/2016 [facility] HEMATOLOGY Hct 27.1 42.0 - 54.0 04/26/2016 [facility] HEMATOLOGY WBC 17.8 3.7 - 10.4 04/26/2016 [facility] HEMATOLOGY MCHC 32.2 32.0 - 36.0 04/26/2016 [facility] HEMATOLOGY MCH 25.0 27.0 - 31.0 04/26/2016 [facility] HEMATOLOGY MCV 77.7 80.0 - 94.0 04/26/2016 [facility] HEMATOLOGY MPV 6.2 7.4 - 10.4 04/26/2016 [facility] HEMATOLOGY Platelet 892 133 - 450 04/26/2016 [facility] HEMATOLOGY RDW 18.6 11.5 - 14.5 04/26/2016 [facility] HEMATOLOGY PT 14.2 12.0 - 14.7 04/26/2016 [facility] HEMATOLOGY INR 1.08 0.85 - 1.17 04/26/2016 [facility] HEMATOLOGY PTT 61.4 22.9 - 35.8 04/20/2016 [facility] URINE CHEM U Eos None Seen (04/20/16 6:15 AM) None Seen 04/20/2016 [facility] URINE CHEM U Creatinine 20.80 04/20/2016 [facility] URINE CHEM U Sodium 87 04/20/2016 [facility] ELECTROLYTES AGAP 14.8 10.0 - 20.0 04/20/2016 [facility] ELECTROLYTES Chloride Lvl 101 95 - 109 04/20/2016 [facility] ELECTROLYTES CO2 22 24 - 32 04/20/2016 [facility] ELECTROLYTES Calcium Lvl 8.5 8.5 - 10.5 04/20/2016 [facility] ELECTROLYTES Albumin Lvl 2.1 3.5 - 5.0 04/20/2016 [facility] ELECTROLYTES Potassium Lvl 3.8 3.5 - 5.1 04/20/2016 [facility] ELECTROLYTES BUN 29 7 - 22 04/20/2016 [facility] ELECTROLYTES Sodium Lvl 134 135 - 145 04/20/2016 [facility] ELECTROLYTES Glucose Lvl 93 70 - 99 04/20/2016 [facility] ELECTROLYTES Phosphorus 4.3 2.5 - 4.5 04/20/2016 [facility] ELECTROLYTES Creatinine Lvl 2.7 6 0.50 - 1.40 04/20/2016 [facility] ELECTROLYTES eGFR 25 04/20/2016 Result Comment: The eGFR is calculated using the [...] from the National Kidney Disease Education Program (NKDEP) which additionally recommends that when the eGFR is used in patients with extremes of body mass index for purposes of drug dosing, the eGFR should be multiplied by the estimated BMI. [facility] HEMATOLOGY PTT 44.0 22.9 - 35.8 04/20/2016 [facility] HEMATOLOGY Basophils # 0.2 0.0 - 0.2 04/20/2016 [facility] HEMATOLOGY Monocytes # 0.8 0.0 - 0.8 04/20/2016 [facility] HEMATOLOGY Microcyte 1+ *ABN* (04/20/16 1:40 AM) None Seen 04/20/2016 [facility] HEMATOLOGY Eosinophils # 1.1 0.0 - 0.5 04/20/2016 [facility] HEMATOLOGY Lymphocytes # 2.0 1.0 - 5.5 04/20/2016 [facility] HEMATOLOGY Segs-Bands # 11.1 1.5 - 8.1 04/20/2016 [facility] HEMATOLOGY Basophils 1.0 0.0 - 1.0 04/20/2016 [facility] HEMATOLOGY Eosinophils 7.3 0.0 - 4.0 04/20/2016 [facility] HEMATOLOGY Monocytes 5.1 2.0 - 12.0 04/20/2016 [facility] HEMATOLOGY Lymphocytes 13.3 20.0 - 40.0 04/20/2016 [facility] HEMATOLOGY Segs 73.3 45.0 - 75.0 04/20/2016 [facility] HEMATOLOGY Plt Morph Clump ed (04/20/16 1:40 AM) 04/20/2016 [facility] HEMATOLOGY Platelet 705 133 - 450 04/20/2016 [facility] HEMATOLOGY MPV 6.5 7.4 - 10.4 04/20/2016 [facility] HEMATOLOGY RDW 17.2 11.5 - 14.5 04/20/2016 [facility] HEMATOLOGY MCHC 31.4 32.0 - 36.0 04/20/2016 [facility] HEMATOLOGY MCV 76.3 80.0 - 94.0 04/20/2016 [facility] HEMATOLOGY MCH 23.9 27.0 - 31.0 04/20/2016 [facility] HEMATOLOGY Hgb 8.3 14.0 - 18.0 04/20/2016 [facility] HEMATOLOGY Hct 26.5 42.0 - 54.0 04/20/2016 [facility] HEMATOLOGY WBC 15.2 3.7 - 10.4 04/20/2016 [facility] HEMATOLOGY RBC 3.47 4.70 - 6.10 04/20/2016 [facility] HEMATOLOGY PTT 57.7 22.9 - 35.8 04/20/2016 [facility] HEMATOLOGY PTT 1:1 Imm 40.5 04/19/2016 [facility] HEMATOLOGY PTT Baseline 48.9 22.9 - 35.8 04/19/2016 [facility] HEMATOLOGY TT Baseline 16.0 15.0 - 21.1 04/19/2016 [facility] CHEM PANEL Phosphorus 4.0 2.5 - 4.5 04/19/2016 [facility] CHEM PANEL eGFR 30 04/19/2016 Result Comment: The eGFR is calculated using the [...] from the National Kidney Disease Education Program (NKDEP) which additionally recommends that when the eGFR is used in patients with extremes of body mass index for purposes of drug dosing, the eGFR should be multiplied by the estimated BMI. [facility] CHEM PANEL Creatinine Lvl 2.37 0.50 - 1.40 04/19/2016 [facility] CHEM PANEL Albumin Lvl 2.0 3.5 - 5.0 04/19/2016 [facility] CHEM PANEL CO2 23 24 - 32 04/19/2016 [facility] CHEM PANEL Potassium Lvl 3.5 3.5 - 5.1 04/19/2016 [facility] CHEM PANEL Chloride Lvl 101 95 - 109 04/19/2016 [facility] CHEM PANEL BUN 28 7 - 22 04/19/2016 [facility] CHEM PANEL Sodium Lvl 136 135 - 145 04/19/2016 [facility] CHEM PANEL Glucose Lvl 97 70 - 99 04/19/2016 [facility] CHEM PANEL Calcium Lvl 8.8 8.5 - 10.5 04/19/2016 [facility] CHEM PANEL AGAP 15.5 10.0 - 20.0 04/19/2016 [facility] CHEM PANEL Phosphorus 4.0 2.5 - 4.5 04/19/2016 [facility] CHEM PANEL Magnesium Lvl 1.6 1.8 - 2.4 04/19/2016 [facility] HEMATOLOGY Eosinophils 7.6 0.0 - 4.0 04/19/2016 [facility] HEMATOLOGY Monocytes 5.7 2.0 - 12.0 04/19/2016 [facility] HEMATOLOGY Basophils 1.0 0.0 - 1.0 04/19/2016 [facility] HEMATOLOGY Segs 72.5 45.0 - 75.0 04/19/2016 [facility] Lymphocytes 13.2 20.0 - 40.0 04/19/2016 [facility] HEMATOLOGY Microcyte 1+ *ABN* (04/19/16 4:45 AM) None Seen 04/19/2016 [facility] HEMATOLOGY Basophils # 0.2 0.0 - 0.2 04/19/2016 [facility] HEMATOLOGY Monocytes # 0.9 0.0 - 0.8 04/19/2016 [facility] HEMATOLOGY Lymphocytes # 2.1 1.0 - 5.5 04/19/2016 [facility] HEMATOLOGY Eosinophils # 1.2 0.0 - 0.5 04/19/2016 [facility] Segs-Bands # 11.5 1.5 - 8.1 04/19/2016 [facility] HEMATOLOGY MPV 6.8 7.4 - 10.4 04/19/2016 [facility] HEMATOLOGY Platelet 642 133 - 450 04/19/2016 [facility] HEMATOLOGY MCHC 31.8 32.0 - 36.0 04/19/2016 [facility] HEMATOLOGY MCH 24.2 27.0 - 31.0 04/19/2016 [facility] RDW 16.7 11.5 - 14.5 04/19/2016 [facility] HEMATOLOGY Hct 23.8 42.0 - 54.0 04/19/2016 [facility] HEMATOLOGY Hgb 7.6 14.0 - 18.0 04/19/2016 [facility] [facility] HEMATOLOGY MCV 75.9 80.0 - 94.0 04/19/2016 [facility] HEMATOLOGY RBC 3.13 4.70 - 6.10 04/19/2016 [facility] HEMATOLOGY WBC 15.9 3.7 - 10.4 04/19/2016 [facility] CHEM PANEL eGFR 33 04/18/2016 Result Comment: The eGFR is calculated using the [...] from the National Kidney Disease Education Program (NKDEP) which additionally recommends that when the eGFR is used in patients with extremes of body mass index for purposes of drug dosing, the eGFR should be multiplied by the estimated BMI. [facility] CHEM PANEL Creatinine Lvl 2.22 0.50 - 1.40 04/18/2016 [facility] CHEM PANEL Calcium Lvl 8.5 8.5 - 10.5 04/18/2016 [facility] CHEM PANEL Chloride Lvl 100 95 - 109 04/18/2016 [facility] CHEM PANEL Potassium Lvl 3.9 3.5 - 5.1 04/18/2016 [facility] CHEM PANEL CO2 24 24 - 32 04/18/2016 [facility] CHEM PANEL Sodium Lvl 134 135 - 145 04/18/2016 [facility] CHEM PANEL BUN 27 7 - 22 04/18/2016 [facility] CHEM PANEL Glucose Lvl 96 70 - 99 04/18/2016 [facility] CHEM PANEL AGAP 13.9 10.0 - 20.0 04/18/2016 [facility] CHEM PANEL Magnesium Lvl 1.6 1.8 - 2.4 04/18/2016 [facility] HEMATOLOGY MCH 23.8 27.0 - 31.0 04/18/2016 [facility] HEMATOLOGY MCHC 31.0 32.0 - 36.0 04/18/2016 [facility] HEMATOLOGY RDW 16.8 11.5 - 14.5 04/18/2016 [facility] HEMATOLOGY Platelet 626 133 - 450 04/18/2016 [facility] HEMATOLOGY MCV 76.8 80.0 - 94.0 04/18/2016 [facility] HEMATOLOGY RBC 3.57 4.70 - 6.10 04/18/2016 [facility] HEMATOLOGY Hct 27.4 42.0 - 54.0 04/18/2016 [facility] HEMATOLOGY WBC 15.1 3.7 - 10.4 04/18/2016 [facility] HEMATOLOGY Hgb 8.5 14.0 - 18.0 04/18/2016 [facility] HEMATOLOGY MPV 6.6 7.4 - 10.4 04/18/2016 [facility] HEMATOLOGY PT 13.2 12.0 - 14.7 04/18/2016 [facility] HEMATOLOGY INR 0.98 0.85 - 1.17 04/18/2016 [facility] HEMATOLOGY Microcyte 1+ *ABN* (04/18/16 7:20 AM) None Seen 04/18/2016 [facility] HEMATOLOGY Basophils # 0.2 0.0 - 0.2 04/18/2016 [facility] HEMATOLOGY Monocytes # 0.8 0.0 - 0.8 04/18/2016 [facility] HEMATOLOGY Eosinophils # 1.0 0.0 - 0.5 04/18/2016 [facility] HEMATOLOGY Monocytes 5.1 2.0 - 12.0 04/18/2016 [facility] HEMATOLOGY Segs 73.9 45.0 - 75.0 04/18/2016 [facility] HEMATOLOGY Basophils 1.2 0.0 - 1.0 04/18/2016 [facility] HEMATOLOGY Segs-Bands # 11.2 1.5 - 8.1 04/18/2016 [facility] HEMATOLOGY Lymphocytes # 2.0 1.0 - 5.5 04/18/2016 [facility] HEMATOLOGY Lymphocytes 13.5 20.0 - 40.0 04/18/2016 [facility] HEMATOLOGY Eosinophils 6.3 0.0 - 4.0 04/18/2016 [facility] URINE CHEM U Eos 0-2 *ABN* (04/17/16 9:00 PM) None Seen 04/18/2016 [facility] URINE CHEM U Creatinine 22.90 04/18/2016 [facility] URINE CHEM U Sodium 112 04/18/2016 [facility] CARDIAC ENZYMES Total CK 39 12 - 191 04/17/2016 [facility] CARDIAC ENZYMES Troponin-I 0.09 0.00 - 0.40 04/17/2016 [facility] CARDIAC ENZYMES CK MB <0.5 0.5 - 3.6 04/17/2016 [facility] CHEM PANEL Magnesium Lvl 1.7 1.8 - 2.4 04/17/2016 [facility] CHEM PANEL Albumin Lvl 2.0 3.5 - 5.0 04/17/2016 [facility] HEMATOLOGY RBC Morph Twyla l (10/14/16 2:23 AM) 04/17/2016 [facility] HEMATOLOGY Plt Morph Twyla l (04/17/16 2:23 AM) 04/17/2016 [facility] BLOOD BANK RESULTS Antibody Scrn Negative (04/16/16 10:56 AM) 04/16/2016 [facility] BLOOD BANK RESULTS ABO/Rh A POS 04/16/2016 [facility] BLOOD BANK RESULTS FFP product Product available (04/16/16 9:54 AM) 04/16/2016 [facility] CARDIAC ENZYMES Troponin-I 0.09 0.00 - 0.40 04/16/2016 [facility] CARDIAC ENZYMES CK MB 0.7 0.5 - 3.6 04/16/2016 [facility] CARDIAC ENZYMES Total CK 39 12 - 191 04/16/2016 [facility] URINE AND STOOL UA Blood Moderate *ABN* (04/16/16 9:11 AM) Negative 04/16/2016 [facility] URINE AND STOOL UA Glucose Negative mg/dL Negative mg/dL 04/16/[address] [facility] URINE AND STOOL UA pH 5.0 5.0 - 8.0 04/16/2016 [facility] URINE AND STOOL UA Protein 100 mg/dL Negative mg/dL 04/16/2016 [facility] URINE AND STOOL UA Bili Negative *NA* (04/16/16 9:11 AM) Negative 04/16/2016 [facility] URINE AND STOOL UA Spec Grav 1.012 <=1.030 04/16/2016 [facility] URINE AND STOOL UA Turbidity Clear (04/16/16 9:11 AM) Clear 04/16/2016 [facility] URINE AND STOOL UA Urobilinogen <=1.0 mg/dL 0.1 - 1.0 04/16/2016 [facility] URINE AND STOOL UA Nitrite Negative (04/16/16 9:11 AM) Negative 04/16/2016 [facility] URINE AND STOOL UA Leuk Est Negative (04/16/16 9:11 AM) Negative 04/16/2016 [facility] URINE AND STOOL UA Sq Epi Few /LPF Few /LPF 04/16/2016 [facility] URINE AND STOOL UA WBC 5 0 - 5 04/16/2016 [facility] URINE AND STOOL UA Ketones Negative 04/16/2016 [facility] URINE AND STOOL UA Color Straw 04/16/2016 [facility] URINE AND STOOL UA Hyal Cast 1 0 - 2 04/16/2016 [facility] URINE AND STOOL UA Mucus Few /LPF None Seen /LPF 04/16/2016 [facility] URINE AND STOOL UA RBC 14 0 - 2 04/16/2016 [facility] DRUG SCREEN U Methadone Scr Nega tive *NA* (04/16/16 6:27 AM) Negative 04/16/2016 [facility] DRUG SCREEN U Propoxyph Scr Nega tive *NA* (04/16/16 6:27 AM) Negative 04/16/2016 [facility] DRUG SCREEN U Phencyc Scr Nega tive *NA* (04/16/16 6:27 AM) Negative 04/16/2016 [facility] DRUG SCREEN U Amph Scr Nega tive *NA* (04/16/16 6:27 AM) Negative 04/16/2016 [facility] DRUG SCREEN UDS Note See Note (04/16/16 6:27 AM) 04/16/2016 [facility] DRUG SCREEN U Cannab Scr Nega tive *NA* (04/16/16 6:27 AM) Negative 04/16/2016 [facility] DRUG SCREEN U Benzodia Scr Nega tive *NA* (04/16/16 6:27 AM) Negative 04/16/2016 [facility] DRUG SCREEN U Cocaine Scr Nega tive *NA* (04/16/16 6:27 AM) Negative 04/16/2016 [facility] DRUG SCREEN U Opiate Scr Posi tive *ABN* (04/16/16 6:27 AM) Negative 04/16/2016 [facility] DRUG SCREEN U Mary Scr Nega tive *NA* (04/16/16 6:27 AM) Negative 04/16/2016 [facility] CHEM PANEL Lactic Acid Lvl 1.1 0.5 - 2.2 04/16/2016 [facility] CHEM PANEL ALT 22 0 - 65 04/16/2016 [facility] CHEM PANEL AST 11 0 - 37 04/16/2016 [facility] CHEM PANEL Bili Direct 0.1 0.0 - 0.3 04/16/2016 [facility] CHEM PANEL Alk Phos 109 39 - 136 04/16/2016 [facility] CHEM PANEL Total Protein 7.0 6.4 - 8.4 04/16/2016 [facility] CHEM PANEL Bili Total 0.6 0.2 - 1.3 04/16/2016 [facility] CHEM PANEL Bili Indirect 0.5 0.0 - 1.0 04/16/2016 [facility] CHEM PANEL A/G Ratio 0.5 0.7 - 1.6 04/16/2016 [facility] CHEM PANEL Globulin 4.6 2.7 - 4.2 04/16/2016 [facility] CHEM PANEL Procalcitonin Lvl 0.21 0.00 - 0.10 04/16/2016 [facility] HEMATOLOGY PT 14.4 12.0 - 14.7 04/16/2016 [facility] HEMATOLOGY INR 1.10 0.85 - 1.17 04/16/2016 [facility] CHEM PANEL Lipase Lvl 65 73 - 393 03/12/2016 [facility] CHEM PANEL Magnesium Lvl 2.0 1.8 - 2.4 03/12/2016 [facility] CHEM PANEL Amylase Lvl 35 25 - 115 03/12/2016 [facility] CHEM PANEL Globulin 6.2 2.7 - 4.2 03/12/2016 [facility] CHEM PANEL A/G Ratio 0.3 0.7 - 1.6 03/12/2016 [facility] CHEM PANEL AGAP 13.7 10.0 - 20.0 03/12/2016 [facility] CHEM PANEL B/C Ratio 17 6 - 25 03/12/2016 [facility] CHEM PANEL Bili Total 0.3 0.2 - 1.3 03/12/2016 [facility] CHEM PANEL Alk Phos 216 39 - 136 03/12/2016 [facility] CHEM PANEL Total Protein 8.3 6.4 - 8.4 03/12/2016 [facility] CHEM PANEL Albumin Lvl 2.1 3.5 - 5.0 03/12/2016 [facility] CHEM PANEL Calcium Lvl 8.7 8.5 - 10.5 03/12/2016 [facility] CHEM PANEL Potassium Lvl 3.7 3.5 - 5.1 03/12/2016 [facility] CHEM PANEL Chloride Lvl 100 95 - 109 03/12/2016 [facility] CHEM PANEL Sodium Lvl 134 135 - 145 03/12/2016 [facility] CHEM PANEL eGFR 109 03/12/2016 Result Comment: The eGFR is calculated using the [...] from the National Kidney Disease Education Program (NKDEP) which additionally recommends that when the eGFR is used in patients with extremes of body mass index for purposes of drug dosing, the eGFR should be multiplied by the estimated BMI. [facility] CHEM PANEL BUN 12 7 - 22 03/12/2016 [facility] CHEM PANEL Creatinine Lvl 0.70 0.50 - 1.40 03/12/2016 [facility] CHEM PANEL CO2 24 24 - 32 03/12/2016 [facility] CHEM PANEL AST 16 0 - 37 03/12/2016 [facility] CHEM PANEL ALT 26 0 - 65 03/12/2016 [facility] CHEM PANEL Glucose Lvl 103 70 - 99 03/12/2016 [facility] HEMATOLOGY MCHC 33.4 32.0 - 36.0 03/12/2016 [facility] HEMATOLOGY Hgb 10.2 14.0 - 18.0 03/12/2016 [facility] HEMATOLOGY RDW 14.9 11.5 - 14.5 03/12/2016 [facility] HEMATOLOGY MPV 7.0 7.4 - 10.4 03/12/2016 [facility] HEMATOLOGY Platelet 1008 133 - 450 03/12/2016 Result Comment: Critical Result(s) hazel d to SHI BEY at 03/12/2016 17:18 by LUZ ELENA. Read back OK. [facility] HEMATOLOGY WBC 19.8 3.7 - 10.4 03/12/2016 [facility] HEMATOLOGY RBC 3.76 4.70 - 6.10 03/12/2016 [facility] HEMATOLOGY MCV 81.2 80.0 - 94.0 03/12/2016 [facility] HEMATOLOGY Hct 30.5 42.0 - 54.0 03/12/2016 [facility] HEMATOLOGY MCH 27.1 27.0 - 31.0 03/12/2016 [facility] HEMATOLOGY Eosinophils # 0.2 0.0 - 0.5 03/12/2016 [facility] HEMATOLOGY Basophils # 0.1 0.0 - 0.2 03/12/2016 [facility] HEMATOLOGY Monocytes # 0.8 0.0 - 0.8 03/12/2016 [facility] HEMATOLOGY Segs-Bands # 17.0 1.5 - 8.1 03/12/2016 [facility] HEMATOLOGY Lymphocytes # 1.7 1.0 - 5.5 03/12/2016 [facility] HEMATOLOGY Basophils 0.4 0.0 - 1.0 03/12/2016 [facility] HEMATOLOGY Eosinophils 1.2 0.0 - 4.0 03/12/2016 [facility] HEMATOLOGY Monocytes 4.1 2.0 - 12.0 03/12/2016 [facility] HEMATOLOGY Segs 85.9 45.0 - 75.0 03/12/2016 [facility] HEMATOLOGY Lymphocytes 8.4 20.0 - 40.0 03/12/2016 [facility] HEMATOLOGY Plt Morph Twyla l (03/12/16 4:46 PM) 03/12/2016 [facility] HEMATOLOGY RBC Morph Twyla l (03/12/16 4:46 PM) 03/12/2016 [facility] ELECTROLYTES AGAP 13.3 10.0 - 20.0 03/07/2016 [facility] ELECTROLYTES Glucose Lvl 110 70 - 99 03/07/2016 [facility] ELECTROLYTES Calcium Lvl 8.6 8.5 - 10.5 03/07/2016 [facility] ELECTROLYTES CO2 26 24 - 32 03/07/2016 [facility] ELECTROLYTES Chloride Lvl 99 95 - 109 03/07/2016 [facility] ELECTROLYTES Sodium Lvl 134 135 - 145 03/07/2016 [facility] ELECTROLYTES BUN 13 7 - 22 03/07/2016 [facility] ELECTROLYTES Potassium Lvl 4.3 3.5 - 5.1 03/07/2016 [facility] ELECTROLYTES Creatinine Lvl 0.7 4 0.50 - 1.40 03/07/2016 [facility] ELECTROLYTES eGFR 106 03/07/2016 Result Comment: The eGFR is calculated using the [...] from the National Kidney Disease Education Program (NKDEP) which additionally recommends that when the eGFR is used in patients with extremes of body mass index for purposes of drug dosing, the eGFR should be multiplied by the estimated BMI. [facility] HEMATOLOGY Platelet 959 133 - 450 03/07/2016 [facility] HEMATOLOGY RDW 14.6 11.5 - 14.5 03/07/2016 [facility] Hct 31.7 42.0 - 54.0 03/07/2016 [facility] HEMATOLOGY Hgb 10.6 14.0 - 18.0 03/07/2016 [facility] HEMATOLOGY MPV 7.0 7.4 - 10.4 03/07/2016 [facility] MCH 27.3 27.0 - 31.0 03/07/2016 [facility] HEMATOLOGY MCV 81.6 80.0 - 94.0 03/07/2016 [facility] MCHC 33.5 32.0 - 36.0 03/07/2016 [facility] RBC 3.89 4.70 - 6.10 03/07/2016 [facility] HEMATOLOGY WBC 22.2 3.7 - 10.4 03/07/2016 [facility] RBC Morph Twyla l (03/07/16 4:54 AM) 03/07/2016 [facility] Plt Morph Twyla l (03/07/16 4:54 AM) 03/07/2016 [facility] Segs-Bands # 18.6 1.5 - 8.1 03/07/2016 [facility] HEMATOLOGY Basophils 0.1 0.0 - 1.0 03/07/2016 [facility] HEMATOLOGY Segs 84.1 45.0 - 75.0 03/07/2016 [facility] HEMATOLOGY Lymphocytes # 2.0 1.0 - 5.5 03/07/2016 [facility] HEMATOLOGY Eosinophils # 0.8 0.0 - 0.5 03/07/2016 [facility] HEMATOLOGY Monocytes # 0.7 0.0 - 0.8 03/07/2016 [facility] HEMATOLOGY Lymphocytes 8.9 20.0 - 40.0 03/07/2016 [facility] HEMATOLOGY Eosinophils 3.6 0.0 - 4.0 03/07/2016 [facility] HEMATOLOGY Monocytes 3.3 2.0 - 12.0 03/07/2016 [facility] HEMATOLOGY Basophils # 0.0 0.0 - 0.2 03/07/2016 [facility] CHEM PANEL eGFR 108 03/06/2016 Result Comment: The eGFR is calculated using the [...] from the National Kidney Disease Education Program (NKDEP) which additionally recommends that when the eGFR is used in patients with extremes of body mass index for purposes of drug dosing, the eGFR should be multiplied by the estimated BMI. [facility] CHEM PANEL Creatinine Lvl 0.70 0.50 - 1.40 03/06/2016 [facility] CHEM PANEL BUN 13 7 - 22 03/06/2016 [facility] CHEM PANEL Calcium Lvl 8.5 8.5 - 10.5 03/06/2016 [facility] CHEM PANEL CO2 26 24 - 32 03/06/2016 [facility] CHEM PANEL Potassium Lvl 4.6 3.5 - 5.1 03/06/2016 [facility] CHEM PANEL Chloride Lvl 99 95 - 109 03/06/2016 [facility] CHEM PANEL Glucose Lvl 89 70 - 99 03/06/2016 [facility] CHEM PANEL Sodium Lvl 136 135 - 145 03/06/2016 [facility] CHEM PANEL AGAP 15.6 10.0 - 20.0 03/06/2016 [facility] HEMATOLOGY Hct 32.6 42.0 - 54.0 03/06/2016 [facility] HEMATOLOGY MCH 27.0 27.0 - 31.0 03/06/2016 [facility] HEMATOLOGY MCV 81.4 80.0 - 94.0 03/06/2016 [facility] HEMATOLOGY Hgb 10.8 14.0 - 18.0 03/06/2016 [facility] HEMATOLOGY Platelet 736 133 - 450 03/06/2016 [facility] HEMATOLOGY MPV 7.0 7.4 - 10.4 03/06/2016 [facility] HEMATOLOGY MCHC 33.2 32.0 - 36.0 03/06/2016 [facility] HEMATOLOGY RDW 14.4 11.5 - 14.5 03/06/2016 [facility] HEMATOLOGY WBC 20.8 3.7 - 10.4 03/06/2016 [facility] HEMATOLOGY RBC 4.01 4.70 - 6.10 03/06/2016 [facility] HEMATOLOGY Basophils # 0.1 0.0 - 0.2 03/06/2016 [facility] HEMATOLOGY Segs 82.1 45.0 - 75.0 03/06/2016 [facility] HEMATOLOGY RBC Morph Twyla l (03/06/16 8:40 AM) 03/06/2016 [facility] HEMATOLOGY Lymphocytes 9.0 20.0 - 40.0 03/06/2016 [facility] HEMATOLOGY Plt Morph Twyla l (03/06/16 8:40 AM) 03/06/2016 [facility] HEMATOLOGY Eosinophils # 0.8 0.0 - 0.5 03/06/2016 [facility] HEMATOLOGY Monocytes # 1.0 0.0 - 0.8 03/06/2016 [facility] HEMATOLOGY Lymphocytes # 1.9 1.0 - 5.5 03/06/2016 [facility] HEMATOLOGY Segs-Bands # 17.1 1.5 - 8.1 03/06/2016 [facility] HEMATOLOGY Basophils 0.3 0.0 - 1.0 03/06/2016 [facility] HEMATOLOGY Monocytes 4.8 2.0 - 12.0 03/06/2016 [facility] HEMATOLOGY Eosinophils 3.8 0.0 - 4.0 03/06/2016 [facility] ELECTROLYTES AGAP 11.7 10.0 - 20.0 03/05/2016 [facility] ELECTROLYTES eGFR 105 03/05/2016 Result Comment: The eGFR is calculated using the [...] from the National Kidney Disease Education Program (NKDEP) which additionally recommends that when the eGFR is used in patients with extremes of body mass index for purposes of drug dosing, the eGFR should be multiplied by the estimated BMI. [facility] ELECTROLYTES Glucose Lvl 95 70 - 99 03/05/2016 [facility] ELECTROLYTES BUN 14 7 - 22 03/05/2016 [facility] ELECTROLYTES Creatinine Lvl 0.7 6 0.50 - 1.40 03/05/2016 [facility] ELECTROLYTES CO2 27 24 - 32 03/05/2016 [facility] ELECTROLYTES Sodium Lvl 137 135 - 145 03/05/2016 [facility] ELECTROLYTES Calcium Lvl 8.4 8.5 - 10.5 03/05/2016 [facility] ELECTROLYTES Chloride Lvl 103 95 - 109 03/05/2016 [facility] ELECTROLYTES Potassium Lvl 4.7 3.5 - 5.1 03/05/2016 [facility] HEMATOLOGY Lymphocytes # 2.3 1.0 - 5.5 03/05/2016 [facility] HEMATOLOGY Segs-Bands # 15.2 1.5 - 8.1 03/05/2016 [facility] HEMATOLOGY Basophils 0.2 0.0 - 1.0 03/05/2016 [facility] HEMATOLOGY Eosinophils # 1.0 0.0 - 0.5 03/05/2016 [facility] HEMATOLOGY Monocytes # 1.3 0.0 - 0.8 03/05/2016 [facility] HEMATOLOGY Segs 76.6 45.0 - 75.0 03/05/2016 [facility] HEMATOLOGY Plt Morph Twyla l (03/05/16 6:21 AM) 03/05/2016 [facility] HEMATOLOGY RBC Morph Twyla l (03/05/16 6:21 AM) 03/05/2016 [facility] HEMATOLOGY Lymphocytes 11.3 20.0 - 40.0 03/05/2016 [facility] HEMATOLOGY Eosinophils 5.2 0.0 - 4.0 03/05/2016 [facility] HEMATOLOGY Monocytes 6.7 2.0 - 12.0 03/05/2016 [facility] HEMATOLOGY RDW 14.4 11.5 - 14.5 03/05/2016 [facility] HEMATOLOGY Platelet 888 133 - 450 03/05/2016 [facility] HEMATOLOGY MPV 7.2 7.4 - 10.4 03/05/2016 [facility] HEMATOLOGY Hgb 10.4 14.0 - 18.0 03/05/2016 [facility] HEMATOLOGY Hct 31.6 42.0 - 54.0 03/05/2016 [facility] HEMATOLOGY MCV 82.4 80.0 - 94.0 03/05/2016 [facility] HEMATOLOGY MCH 27.2 27.0 - 31.0 03/05/2016 [facility] HEMATOLOGY MCHC 33.0 32.0 - 36.0 03/05/2016 [facility] HEMATOLOGY WBC 19.9 3.7 - 10.4 03/05/2016 [facility] HEMATOLOGY RBC 3.83 4.70 - 6.10 03/05/2016 [facility] HEMATOLOGY Retic Auto 1.9 0.5 - 1.5 03/04/2016 [facility] HEMATOLOGY Large Plt Moder ate *ABN* (03/04/16 5:08 AM) None Seen 03/04/2016 [facility] HEMATOLOGY Basophils # 0.1 0.0 - 0.2 03/04/2016 [facility] CHEM PANEL Phosphorus 3.9 2.5 - 4.5 03/03/2016 [facility] CHEM PANEL Magnesium Lvl 2.1 1.8 - 2.4 03/03/2016 [facility] HEMATOLOGY Sed Rate >100 0 - 15 03/03/2016 [facility] IMMUNOLOGY C-REACTIVE PROTEIN 164.0 <=2.9 mg/L 03/03/2016 [facility] CHEM PANEL Albumin Lvl 1.6 3.5 - 5.0 03/02/2016 [facility] CHEM PANEL ALT 55 0 - 65 03/02/2016 [facility] CHEM PANEL AST 25 0 - 37 03/02/2016 [facility] CHEM PANEL Bili Total 0.5 0.2 - 1.3 03/02/2016 [facility] CHEM PANEL Total Protein 7.3 6.4 - 8.4 03/02/2016 [facility] CHEM PANEL Alk Phos 237 39 - 136 03/02/2016 [facility] CHEM PANEL B/C Ratio 16 6 - 25 03/02/2016 [facility] CHEM PANEL Globulin 5.7 2.7 - 4.2 03/02/2016 [facility] CHEM PANEL A/G Ratio 0.3 0.7 - 1.6 03/02/2016 [facility] HEMATOLOGY PB Smear Path RBC's : Normochromic normocytic; mild anisopoikylocytosis; no schistocytes or nucleated RBC's. WBC's: Moderately [...] studies are recommended. Vidal Putnam MD CPT 58492 03/02/[address] [facility] CHEM PANEL Bili Total 0.5 0.2 - 1.3 03/01/2016 [facility] CHEM PANEL Alk Phos 241 39 - 136 03/01/2016 [facility] CHEM PANEL A/G Ratio 0.3 0.7 - 1.6 03/01/2016 [facility] CHEM PANEL Globulin 5.4 2.7 - 4.2 03/01/2016 [facility] CHEM PANEL Total Protein 7.2 6.4 - 8.4 03/01/2016 [facility] CHEM PANEL AST 38 0 - 37 03/01/2016 [facility] CHEM PANEL B/C Ratio 18 6 - 25 03/01/2016 [facility] CHEM PANEL Albumin Lvl 1.8 3.5 - 5.0 03/01/2016 [facility] CHEM PANEL ALT 87 0 - 65 03/01/2016 [facility] CHEM PANEL A/G Ratio 0.3 0.7 - 1.6 02/29/2016 [facility] CHEM PANEL Bili Indirect 0.2 0.0 - 1.0 02/29/2016 [facility] CHEM PANEL Globulin 5.2 2.7 - 4.2 02/29/2016 [facility] CHEM PANEL Albumin Lvl 1.7 3.5 - 5.0 02/29/2016 [facility] CHEM PANEL Bili Direct 0.1 0.0 - 0.3 02/29/2016 [facility] CHEM PANEL Total Protein 6.9 6.4 - 8.4 02/29/2016 [facility] CHEM PANEL Alk Phos 226 39 - 136 02/29/2016 [facility] CHEM PANEL Bili Total 0.3 0.2 - 1.3 02/29/2016 [facility] CHEM PANEL AST 57 0 - 37 02/29/2016 [facility] CHEM PANEL ALT 87 0 - 65 02/29/2016 [facility] CHEM PANEL GGT 194 5 - 85 02/29/2016 [facility] MOLECULAR DIAGNOSTIC C difficile DNA Negative (02/28/16 4:07 PM) Negative 02/28/2016 [facility] URINE AND STOOL Fecal Leukocyte None Seen (02/28/16 4:07 PM) 02/28/2016 [facility] CHEM PANEL B/C Ratio 10 6 - 25 02/28/2016 [facility] HEMATOLOGY Sed Rate >100 0 - 15 02/28/2016 [facility] IMMUNOLOGY Prealbumin 10.4 18.0 - 45.0 02/28/2016 [facility] IMMUNOLOGY C-REACTIVE PROTEIN 150.0 <=2.9 mg/L 02/28/2016 [facility] CHEM PANEL Magnesium Lvl 2.1 1.8 - 2.4 02/27/2016 [facility] HEMATOLOGY Sed Rate >100 0 - 15 02/27/2016 [facility] IMMUNOLOGY Prealbumin 9.9 18.0 - 45.0 02/27/2016 [facility] IMMUNOLOGY HIV 1/2 Ab Negat dimas *NA* (02/27/16 4:25 AM) Negative 02/27/2016 [facility] C-REACTIVE PROTEIN 172.0 <=2.9 mg/L 02/27/2016 [facility] LIPIDS LDL (Calculated) 63 <=99 mg/dL 02/26/2016 [facility] LIPIDS VLDL 18 02/26/2016 [facility] LIPIDS HDL 24 >=61 mg/dL 02/26/2016 [facility] LIPIDS CHD Risk 4.38 4.00 - 7.30 02/26/2016 [facility] LIPIDS Trig 88 <=149 mg/dL 02/26/2016 [facility] LIPIDS Chol 105 <=199 mg/dL 02/26/2016 [facility] TOXICOLOGY Vanco Tr TND 1300 02/26/2016 [facility] TOXICOLOGY Vanco Tr 3.8 02/26/2016 [facility] CHEM PANEL Magnesium Lvl 1.8 1.8 - 2.4 02/26/2016 [facility] CHEM PANEL Phosphorus 3.6 2.5 - 4.5 02/26/2016 [facility] VIRAL - SEROLOGY W Nile Ab IgM <0.90 02/26/2016 Result Comment: REFERENCE RANGE: <0.90<b r/>
INTERPRETIVE CRITERIA:
<0.90 Antibody not detected
0.90 [...] by other flavivirus infections
(e.g. Dengue virus, Wilbarger encephalitis virus)
may show cross-reactivity with WNV.
Test Performed at:
[facility].
[address] [place] [address]
[place] [address] Coleen Munoz MD [facility] DRUG SCREEN UDS Note See Note *NA* (02/25/16 1:10 PM) 02/25/2016 [facility] DRUG SCREEN U Cannab Scr Nega tive *NA* (02/25/16 1:10 PM) Negative 02/25/2016 [facility] DRUG SCREEN U Opiate Scr Nega tive *NA* (02/25/16 1:10 PM) Negative 02/25/2016 [facility] DRUG SCREEN U Benzodia Scr Nega tive *NA* (02/25/16 1:10 PM) Negative 02/25/2016 [facility] DRUG SCREEN U Mary Scr Nega tive *NA* (02/25/16 1:10 PM) Negative 02/25/2016 [facility] DRUG SCREEN U Cocaine Scr Nega tive *NA* (02/25/16 1:10 PM) Negative 02/25/2016 [facility] DRUG SCREEN U Phencyc Scr Nega tive *NA* (02/25/16 1:10 PM) Negative 02/25/2016 [facility] DRUG SCREEN U Amph Scr Nega tive *NA* (02/25/16 1:10 PM) Negative 02/25/2016 [facility] CARDIAC ENZYMES Troponin-I 0.26 0.00 - 0.40 02/25/2016 [facility] CARDIAC ENZYMES CK MB <0.5 0.5 - 3.6 02/25/2016 [facility] CARDIAC ENZYMES Total CK 25 12 - 191 02/25/2016 [facility] CARDIAC ENZYMES Troponin-I 0.31 0.00 - 0.40 02/25/2016 [facility] CARDIAC ENZYMES CK MB <0.5 0.5 - 3.6 02/25/2016 [facility] CARDIAC ENZYMES Total CK 26 12 - 191 02/25/2016 [facility] CHEM PANEL Lactic Acid Lvl 1.0 0.5 - 2.2 02/25/2016 [facility] BACTERIAL - SEROLOGY Strep pneumonia e Ag Negative (02/25/16 12:20 AM) Negative 02/25/2016 [facility] BACTERIAL - SEROLOGY Source Strep Cerebral Spinal Fluid 02/25/[address] [facility] BODY FLUIDS Tube Num CSF 1 02/25/2016 [facility] BODY [facility] RBC CSF 67 0 - 03 02/25/2016 [facility] BODY FLUIDS WBC CSF 9 0 - 53 02/25/2016 [facility] Clarity CSF [place] r (02/25/16 12:20 AM) Clear 02/25/2016 [facility] Monocyte CSF 6 15 - 45 02/25/2016 [facility] Lymph CSF 58 40 - 80 02/25/2016 [facility] Supernat CSF [place] rless (02/25/16 12:20 AM) Colorless 02/25/2016 [facility] Color CSF [place] rless (02/25/16 12:20 AM) Colorless 02/25/2016 [facility] Segs CSF 36 0 - 6 02/25/2016 [facility] Protein CSF 45 15 - 45 02/25/2016 [facility] Glucose CSF 50 45 - 80 02/25/2016 [facility] BODY FLUIDS RBC CSF 3 0 - 03 02/25/2016 [facility] BODY FLUIDS WBC CSF 1 0 - 53 02/25/2016 [facility] Supernat CSF [place] rless (02/25/16 12:20 AM) Colorless 02/25/2016 [facility] BODY [facility] Clarity CSF [place] r (02/25/16 12:20 AM) Clear 02/25/2016 [facility] BODY FLUIDS Color CSF [place] rless (02/25/16 12:20 AM) Colorless 02/25/2016 [facility] BODY FLUIDS Tube Num CSF 4 02/25/2016 [facility] FUNGAL - SEROLOGY Crypto Ag CSF Negative (02/25/16 12:20 AM) Negative 02/25/2016 [facility] IMMUNOLOGY VDRL Scr CSF Non R eactive (02/25/16 12:20 AM) Non Reactive 02/25/2016 [facility] MOLECULAR DIAGNOSTIC HSV 1 by PCR Not Performed 1 (02/25/16 12:20 AM) Negative 02/25/2016 Result Comment: CSF contains less than 5 WBC'S and has a normal Protein level. [facility] MOLECULAR DIAGNOSTIC HSV 2 by PCR Not Performed 2 (02/25/16 12:20 AM) Negative 02/25/2016 Result Comment: CSF contains less than 5 WBC'S and has a normal Protein level. [facility] MOLECULAR DIAGNOSTIC Source HSV Cerebral Spinal Fluid 02/25/[address] [facility] VIRAL - SEROLOGY Enterovirus PCR CSF Negative (02/25/16 12:20 AM) Negative 02/25/2016 [facility] URINE AND STOOL UA Bacteria Occasional /HPF None Seen /HPF 02/25/[address] [facility] URINE AND STOOL UA Mucus Few /LPF None Seen /LPF 02/25/2016 [facility] URINE AND STOOL UA Sq Epi None Seen 02/25/2016 [facility] URINE AND STOOL UA Ketones Negative 02/25/2016 [facility] URINE AND STOOL UA Urobilinogen <=1.0 mg/dL 0.1 - 1.0 02/25/2016 [facility] URINE AND STOOL UA Leuk Est Trace *ABN* (02/24/16 8:41 PM) Negative 02/25/2016 [facility] URINE AND STOOL UA WBC 8 0 - 5 02/25/2016 [facility] URINE AND STOOL UA RBC 9 0 - 2 02/25/2016 [facility] URINE AND STOOL UA Glucose Negative mg/dL Negative mg/dL 02/25/[address] [facility] URINE AND STOOL UA Bili Negative *NA* (02/24/16 8:41 PM) Negative 02/25/2016 [facility] URINE AND STOOL UA Protein 30 mg/dL Negative mg/dL 02/25/2016 [facility] URINE AND STOOL UA Nitrite Negative (02/24/16 8:41 PM) Negative 02/25/2016 [facility] URINE AND STOOL UA Blood Small *ABN* (02/24/16 8:41 PM) Negative 02/25/2016 [facility] URINE AND STOOL UA Turbidity Slight *ABN* (02/24/16 8:41 PM) Clear 02/25/2016 [facility] URINE AND STOOL UA Color Yellow *NA* (02/24/16 8:41 PM) Yellow 02/25/2016 [facility] URINE AND STOOL UA Spec Grav 1.016 <=1.030 02/25/2016 [facility] URINE AND STOOL UA pH 6.0 5.0 - 8.0 02/25/2016 [facility] CARDIAC ENZYMES Total CK 25 12 - 191 02/25/2016 [facility] CARDIAC ENZYMES Troponin-I 0.33 0.00 - 0.40 02/25/2016 [facility] TOXICOLOGY Ethanol Lvl <3 02/25/2016 [facility] TOXICOLOGY Etoh (%) <0.003 02/25/2016 [facility] CHEM PANEL eGFR 146 02/20/2016 Result Comment: The eGFR is calculated using the [...] from the National Kidney Disease Education Program (NKDEP) which additionally recommends that when the eGFR is used in patients with extremes of body mass index for purposes of drug dosing, the eGFR should be multiplied by the estimated BMI. [facility] CHEM PANEL Calcium Lvl 8.3 8.5 - 10.5 02/20/2016 [facility] CHEM PANEL Potassium Lvl 3.6 3.5 - 5.1 02/20/2016 [facility] CHEM PANEL CO2 27 24 - 32 02/20/2016 [facility] CHEM PANEL Sodium Lvl 134 135 - 145 02/20/2016 [facility] CHEM PANEL Chloride Lvl 100 95 - 109 02/20/2016 [facility] CHEM PANEL Creatinine Lvl 0.48 0.50 - 1.40 02/20/2016 [facility] CHEM PANEL BUN 7 7 - 22 02/20/2016 [facility] CHEM PANEL Glucose Lvl 98 70 - 99 02/20/2016 [facility] CHEM PANEL AGAP 10.6 10.0 - 20.0 02/20/2016 [facility] CHEM PANEL Magnesium Lvl 1.9 1.8 - 2.4 02/20/2016 [facility] HEMATOLOGY Lymphocytes 10.1 20.0 - 40.0 02/20/2016 [facility] HEMATOLOGY Segs 78.4 45.0 - 75.0 02/20/2016 [facility] HEMATOLOGY Segs-Bands # 11.8 1.5 - 8.1 02/20/2016 [facility] HEMATOLOGY Basophils 0.7 0.0 - 1.0 02/20/2016 [facility] HEMATOLOGY Eosinophils 3.0 0.0 - 4.0 02/20/2016 [facility] HEMATOLOGY Monocytes 7.8 2.0 - 12.0 02/20/2016 [facility] HEMATOLOGY Lymphocytes # 1.5 1.0 - 5.5 02/20/2016 [facility] HEMATOLOGY Basophils # 0.1 0.0 - 0.2 02/20/2016 [facility] HEMATOLOGY Monocytes # 1.2 0.0 - 0.8 02/20/2016 [facility] HEMATOLOGY Eosinophils # 0.4 0.0 - 0.5 02/20/2016 [facility] HEMATOLOGY RBC 4.35 4.70 - 6.10 02/20/2016 [facility] HEMATOLOGY WBC 15.1 3.7 - 10.4 02/20/2016 [facility] HEMATOLOGY MCV 82.5 80.0 - 94.0 02/20/2016 [facility] HEMATOLOGY Hct 35.9 42.0 - 54.0 02/20/2016 [facility] HEMATOLOGY Hgb 11.7 14.0 - 18.0 02/20/2016 [facility] HEMATOLOGY RDW 13.7 11.5 - 14.5 02/20/2016 [facility] HEMATOLOGY MCH 26.9 27.0 - 31.0 02/20/2016 [facility] HEMATOLOGY MCHC 32.6 32.0 - 36.0 02/20/2016 [facility] HEMATOLOGY MPV 7.0 7.4 - 10.4 02/20/2016 [facility] HEMATOLOGY Platelet 717 133 - 450 02/20/2016 [facility] CHEM PANEL Magnesium Lvl 1.7 1.8 - 2.4 02/19/2016 [facility] ELECTROLYTES Chloride Lvl 101 95 - 109 02/19/2016 [facility] ELECTROLYTES CO2 26 24 - 32 02/19/2016 [facility] ELECTROLYTES Calcium Lvl 8.4 8.5 - 10.5 02/19/2016 [facility] ELECTROLYTES BUN 10 7 - 22 02/19/2016 [facility] ELECTROLYTES Creatinine Lvl 0.5 6 0.50 - 1.40 02/19/2016 [facility] ELECTROLYTES Glucose Lvl 113 70 - 99 02/19/2016 [facility] ELECTROLYTES Sodium Lvl 135 135 - 145 02/19/2016 [facility] ELECTROLYTES Potassium Lvl 3.4 3.5 - 5.1 02/19/2016 [facility] ELECTROLYTES eGFR 137 02/19/2016 Result Comment: The eGFR is calculated using the [...] from the National Kidney Disease Education Program (NKDEP) which additionally recommends that when the eGFR is used in patients with extremes of body mass index for purposes of drug dosing, the eGFR should be multiplied by the estimated BMI. [facility] ELECTROLYTES AGAP 11.4 10.0 - 20.0 02/19/2016 [facility] HEMATOLOGY Hgb 11.8 14.0 - 18.0 02/19/2016 [facility] HEMATOLOGY Hct 36.5 42.0 - 54.0 02/19/2016 [facility] HEMATOLOGY RBC 4.38 4.70 - 6.10 02/19/2016 [facility] HEMATOLOGY MCV 83.5 80.0 - 94.0 02/19/2016 [facility] HEMATOLOGY MCH 27.0 27.0 - 31.0 02/19/2016 [facility] HEMATOLOGY WBC 17.1 3.7 - 10.4 02/19/2016 [facility] HEMATOLOGY MPV 7.2 7.4 - 10.4 02/19/2016 [facility] HEMATOLOGY MCHC 32.4 32.0 - 36.0 02/19/2016 [facility] HEMATOLOGY RDW 14.0 11.5 - 14.5 02/19/2016 [facility] HEMATOLOGY Platelet 723 133 - 450 02/19/2016 [facility] HEMATOLOGY Eosinophils # 0.2 0.0 - 0.5 02/19/2016 [facility] HEMATOLOGY Monocytes # 0.8 0.0 - 0.8 02/19/2016 [facility] HEMATOLOGY Lymphocytes # 1.5 1.0 - 5.5 02/19/2016 [facility] HEMATOLOGY Segs-Bands # 14.5 1.5 - 8.1 02/19/2016 [facility] HEMATOLOGY Basophils 0.5 0.0 - 1.0 02/19/2016 [facility] HEMATOLOGY Eosinophils 1.0 0.0 - 4.0 02/19/2016 [facility] HEMATOLOGY Monocytes 4.7 2.0 - 12.0 02/19/2016 [facility] HEMATOLOGY Lymphocytes 8.9 20.0 - 40.0 02/19/2016 [facility] HEMATOLOGY Segs 84.9 45.0 - 75.0 02/19/2016 [facility] HEMATOLOGY Basophils # 0.1 0.0 - 0.2 02/19/2016 [facility] HEMATOLOGY MPV 7.6 7.4 - 10.4 02/18/2016 [facility] HEMATOLOGY RDW 13.8 11.5 - 14.5 02/18/2016 [facility] HEMATOLOGY MCHC 32.4 32.0 - 36.0 02/18/2016 [facility] HEMATOLOGY Platelet 737 133 - 450 02/18/2016 [facility] HEMATOLOGY Hct 38.7 42.0 - 54.0 02/18/2016 [facility] HEMATOLOGY MCV 84.1 80.0 - 94.0 02/18/2016 [facility] HEMATOLOGY MCH 27.3 27.0 - 31.0 02/18/2016 [facility] HEMATOLOGY RBC 4.59 4.70 - 6.10 02/18/2016 [facility] HEMATOLOGY Hgb 12.5 14.0 - 18.0 02/18/2016 [facility] HEMATOLOGY WBC 16.0 3.7 - 10.4 02/18/2016 [facility] HEMATOLOGY Basophils # 0.1 0.0 - 0.2 02/18/2016 [facility] HEMATOLOGY Eosinophils # 0.4 0.0 - 0.5 02/18/2016 [facility] HEMATOLOGY Monocytes # 1.2 0.0 - 0.8 02/18/2016 [facility] HEMATOLOGY Lymphocytes # 1.4 1.0 - 5.5 02/18/2016 [facility] HEMATOLOGY Segs-Bands # 12.9 1.5 - 8.1 02/18/2016 [facility] HEMATOLOGY Basophils 0.9 0.0 - 1.0 02/18/2016 [facility] HEMATOLOGY Eosinophils 2.2 0.0 - 4.0 02/18/2016 [facility] HEMATOLOGY Monocytes 7.7 2.0 - 12.0 02/18/2016 [facility] HEMATOLOGY Lymphocytes 8.6 20.0 - 40.0 02/18/2016 [facility] HEMATOLOGY Segs 80.6 45.0 - 75.0 02/18/2016 [facility] IMMUNOLOGY Hep B Core IgM Negat dimas *NA* (02/18/16 7:03 AM) Negative 02/18/2016 [facility] IMMUNOLOGY Hep A IgM Negat dimas *NA* (02/18/16 7:03 AM) Negative 02/18/2016 [facility] IMMUNOLOGY Hep C Ab Negat dimas *NA* (02/18/16 7:03 AM) 02/18/2016 [facility] IMMUNOLOGY Hep Bs Ag Negat dimas *NA* (02/18/16 7:03 AM) Negative 02/18/2016 [facility] RAPID Grp A Strep Scr Negative (02/17/16 4:29 PM) Negative 02/17/2016 [facility] BLOOD BANK RESULTS ABO/Rh A POS 02/17/2016 [facility] BLOOD BANK RESULTS Antibody Scrn Negative (02/17/16 3:42 PM) 02/17/2016 [facility] CHEM PANEL Lactic Acid Lvl 0.9 0.5 - 2.2 02/17/2016 [facility] CHEM PANEL Procalcitonin Lvl 0.10 0.00 - 0.10 02/17/2016 [facility] HEMATOLOGY PT 14.6 12.0 - 14.7 02/17/2016 [facility] HEMATOLOGY INR 1.11 0.85 - 1.17 02/17/2016 [facility] HEMATOLOGY PTT 32.8 22.9 - 35.8 02/17/2016 [facility] IMMUNOLOGY HIV 1/2 Ab Negat dimas *NA* (02/17/16 10:07 AM) Negative 02/17/2016 [facility] URINE AND STOOL UA Bili Negative *NA* (02/17/16 3:45 AM) Negative 02/17/2016 [facility] URINE AND STOOL UA Blood Trace *ABN* (02/17/16 3:45 AM) Negative 02/17/2016 [facility] URINE AND STOOL UA Spec Grav 1.025 <=1.030 02/17/2016 [facility] URINE AND STOOL UA pH 6.0 5.0 - 8.0 02/17/2016 [facility] URINE AND STOOL UA Protein Trace *ABN* (02/17/16 3:45 AM) Negative 02/17/2016 [facility] URINE AND STOOL UA RBC 0-2 /HPF 0 - 2 02/17/2016 [facility] URINE AND STOOL UA Sq Epi Rare /LPF Few /LPF 02/17/2016 [facility] URINE AND STOOL UA WBC 3-5 /HPF None Seen /HPF 02/17/2016 [facility] URINE AND STOOL UA Nitrite Negative (02/17/16 3:45 AM) Negative 02/17/2016 [facility] URINE AND STOOL UA Leuk Est Trace *ABN* (02/17/16 3:45 AM) Negative 02/17/2016 [facility] URINE AND STOOL UA Urobilinogen 2.0 0.1 - 1.0 02/17/2016 [facility] URINE AND STOOL UA Turbidity Clear (02/17/16 3:45 AM) Clear 02/17/2016 [facility] URINE AND STOOL UA Color Yellow *NA* (02/17/16 3:45 AM) Yellow 02/17/2016 [facility] URINE AND STOOL UA Ketones Negative *NA* (02/17/16 3:45 AM) Negative 02/17/2016 [facility] URINE AND STOOL UA Glucose 100 mg/dL Negative mg/dL 02/17/2016 [facility] URINE AND STOOL UA Bacteria Occasional /HPF None Seen /HPF 02/17/2016 [facility] URINE AND STOOL UA Mucus Moderate /LPF None Seen /LPF 02/17/2016 [facility] CHEM PANEL Lipase Lvl 91 73 - 393 02/17/2016 [facility] CHEM PANEL Amylase Lvl 46 25 - 115 02/17/2016 [facility] CHEM PANEL Globulin 5.8 2.7 - 4.2 02/17/2016 [facility] CHEM PANEL B/C Ratio 15 6 - 25 02/17/2016 [facility] CHEM PANEL A/G Ratio 0.3 0.7 - 1.6 02/17/2016 [facility] CHEM PANEL AGAP 8.8 10.0 - 20.0 02/17/2016 [facility] CHEM PANEL eGFR 128 02/17/2016 Result Comment: The eGFR is calculated using the [...] from the National Kidney Disease Education Program (NKDEP) which additionally recommends that when the eGFR is used in patients with extremes of body mass index for purposes of drug dosing, the eGFR should be multiplied by the estimated BMI. [facility] CHEM PANEL AST 25 0 - 37 02/17/2016 [facility] CHEM PANEL Bili Total 0.2 0.2 - 1.3 02/17/2016 [facility] CHEM PANEL Alk Phos 128 39 - 136 02/17/2016 [facility] CHEM PANEL CO2 30 24 - 32 02/17/2016 [facility] CHEM PANEL Calcium Lvl 8.5 8.5 - 10.5 02/17/2016 [facility] CHEM PANEL Total Protein 7.8 6.4 - 8.4 02/17/2016 [facility] CHEM PANEL Albumin Lvl 2.0 3.5 - 5.0 02/17/2016 [facility] CHEM PANEL ALT 40 0 - 65 02/17/2016 [facility] CHEM PANEL Creatinine Lvl 0.67 0.50 - 1.40 02/17/2016 [facility] CHEM PANEL Sodium Lvl 129 135 - 145 02/17/2016 [facility] CHEM PANEL Potassium Lvl 3.8 3.5 - 5.1 02/17/2016 [facility] CHEM PANEL Chloride Lvl 94 95 - 109 02/17/2016 [facility] CHEM PANEL Glucose Lvl 101 70 - 99 02/17/2016 [facility] CHEM PANEL BUN 10 7 - 22 02/17/2016 [facility] DRUG SCREEN U Amph Scr Nega tive *NA* (02/14/16 3:15 AM) Negative 02/14/2016 [facility] DRUG SCREEN U Benzodia Scr Nega tive *NA* (02/14/16 3:15 AM) Negative 02/14/2016 [facility] DRUG SCREEN U Cannab Scr Posi tive *ABN* (02/14/16 3:15 AM) Negative 02/14/2016 [facility] DRUG SCREEN U Cocaine Scr Posi tive *ABN* (02/14/16 3:15 AM) Negative 02/14/2016 [facility] DRUG SCREEN U Opiate Scr Posi tive *ABN* (02/14/16 3:15 AM) Negative 02/14/2016 [facility] DRUG SCREEN U Mary Scr Nega tive *NA* (02/14/16 3:15 AM) Negative 02/14/2016 [facility] DRUG SCREEN U Phencyc Scr Nega tive *NA* (02/14/16 3:15 AM) Negative 02/14/2016 [facility] DRUG SCREEN UDS Note See Note (02/14/16 3:15 AM) 02/14/2016 [facility] URINE AND STOOL UA Nitrite Negative (02/14/16 3:15 AM) Negative 02/14/2016 [facility] URINE AND STOOL UA Urobilinogen 4.0 0.1 - 1.0 02/14/2016 [facility] URINE AND STOOL UA Leuk Est Trace *ABN* (02/14/16 3:15 AM) Negative 02/14/2016 [facility] URINE AND STOOL UA Turbidity Slight *ABN* (02/14/16 3:15 AM) Clear 02/14/2016 [facility] URINE AND STOOL UA Bili Negative *NA* (02/14/16 3:15 AM) Negative 02/14/2016 [facility] URINE AND STOOL UA pH 5.0 5.0 - 8.0 02/14/2016 [facility] URINE AND STOOL UA Spec Grav 1.028 <=1.030 02/14/2016 [facility] URINE AND STOOL UA Glucose Negative mg/dL Negative mg/dL 02/14/[address] [facility] URINE AND STOOL UA Protein 30 mg/dL Negative mg/dL 02/14/2016 [facility] URINE AND STOOL UA RBC 4 0 - 2 02/14/2016 [facility] URINE AND STOOL UA WBC 5 0 - 5 02/14/2016 [facility] URINE AND STOOL UA Mucus Few /LPF None Seen /LPF 02/14/2016 [facility] URINE AND STOOL UA Blood Small *ABN* (02/14/16 3:15 AM) Negative 02/14/2016 [facility] URINE AND STOOL UA Sq Epi Occasional /LPF Few /LPF 02/14/2016 [facility] URINE AND STOOL UA Color Delmi 02/14/2016 [facility] URINE AND STOOL UA Ketones Negative 02/14/2016 [facility] CARDIAC ENZYMES Total CK 49 12 - 191 02/14/2016 [facility] CHEM PANEL Lipase Lvl 64 73 - 393 02/14/2016 [facility] CHEM PANEL eGFR 125 02/14/2016 Result Comment: The eGFR is calculated using the [...] from the National Kidney Disease Education Program (NKDEP) which additionally recommends that when the eGFR is used in patients with extremes of body mass index for purposes of drug dosing, the eGFR should be multiplied by the estimated BMI. [facility] CHEM PANEL Alk Phos 121 39 - 136 02/14/2016 [facility] CHEM PANEL AST 26 0 - 37 02/14/2016 [facility] CHEM PANEL ALT 39 0 - 65 02/14/2016 [facility] CHEM PANEL Glucose Lvl 97 70 - 99 02/14/2016 [facility] CHEM PANEL Bili Total 0.6 0.2 - 1.3 02/14/2016 [facility] CHEM PANEL Total Protein 8.0 6.4 - 8.4 02/14/2016 [facility] CHEM PANEL Creatinine Lvl 0.71 0.50 - 1.40 02/14/2016 [facility] CHEM PANEL Chloride Lvl 97 95 - 109 02/14/2016 [facility] CHEM PANEL CO2 26 24 - 32 02/14/2016 [facility] CHEM PANEL Potassium Lvl 4.2 3.5 - 5.1 02/14/2016 [facility] CHEM PANEL Calcium Lvl 8.6 8.5 - 10.5 02/14/2016 [facility] CHEM PANEL Albumin Lvl 2.2 3.5 - 5.0 02/14/2016 [facility] CHEM PANEL Sodium Lvl 133 135 - 145 02/14/2016 [facility] CHEM PANEL BUN 14 7 - 22 02/14/2016 [facility] CHEM PANEL A/G Ratio 0.4 0.7 - 1.6 02/14/2016 [facility] CHEM PANEL Globulin 5.8 2.7 - 4.2 02/14/2016 [facility] CHEM PANEL B/C Ratio 20 6 - 25 02/14/2016 [facility] CHEM PANEL AGAP 14.2 10.0 - 20.0 02/14/2016 [facility] HEMATOLOGY Basophils # 0.1 0.0 - 0.2 02/14/2016 [facility] HEMATOLOGY Monocytes # 1.0 0.0 - 0.8 02/14/2016 [facility] HEMATOLOGY Eosinophils # 0.1 0.0 - 0.5 02/14/2016 [facility] HEMATOLOGY Monocytes 7.6 2.0 - 12.0 02/14/2016 [facility] HEMATOLOGY Eosinophils 0.6 0.0 - 4.0 02/14/2016 [facility] HEMATOLOGY Segs-Bands # 10.9 1.5 - 8.1 02/14/2016 [facility] HEMATOLOGY Basophils 0.5 0.0 - 1.0 02/14/2016 [facility] HEMATOLOGY Lymphocytes # 1.4 1.0 - 5.5 02/14/2016 [facility] HEMATOLOGY Plt Morph Twyla l (02/14/16 1:54 AM) 02/14/2016 [facility] HEMATOLOGY Segs 80.7 45.0 - 75.0 02/14/2016 [facility] HEMATOLOGY Bands 0.0 0.0 - 11.0 02/14/2016 [facility] HEMATOLOGY Lymphocytes 10.6 20.0 - 40.0 02/14/2016 [facility] HEMATOLOGY RBC Morph Twyla l (02/14/16 1:54 AM) 02/14/2016 [facility] HEMATOLOGY MPV 7.2 7.4 - 10.4 02/14/2016 [facility] HEMATOLOGY Platelet 703 133 - 450 02/14/2016 [facility] HEMATOLOGY MCV 84.4 80.0 - 94.0 02/14/2016 [facility] HEMATOLOGY Hct 37.3 42.0 - 54.0 02/14/2016 [facility] MCHC 33.2 32.0 - 36.0 02/14/2016 [facility] MCH 28.0 27.0 - 31.0 02/14/2016 [facility] HEMATOLOGY RDW 13.9 11.5 - 14.5 02/14/2016 [facility] HEMATOLOGY WBC 13.5 3.7 - 10.4 02/14/2016 [facility] HEMATOLOGY Hgb 12.4 14.0 - 18.0 02/14/2016 [facility] HEMATOLOGY RBC 4.42 4.70 - 6.10 02/14/2016 [facility] CARDIAC ENZYMES Total CK 67 12 - 191 05/10/2014 [facility] CHEM PANEL A/G Ratio 0.5 0.7 - 1.6 05/10/2014 [facility] CHEM PANEL Globulin 5.1 2.0 - 4.0 05/10/2014 [facility] CHEM PANEL B/C Ratio 12 6 - 25 05/10/2014 [facility] CHEM PANEL AGAP 8.7 10.0 - 20.0 05/10/2014 [facility] CHEM PANEL eGFR 81 05/10/2014 <sup>1</sup>Result Comment: The eGFR is calculated using the CKD-EPI formula. In most young, healthy individuals the eGFR will be >90 mL/min/1.73m2. The eGFR declines with age. An eGFR of 60-89 may be normal in some populations, particularly the elderly, for whom the CKD-EPI formula has not been extensively validated. Use of the eGFR is not recommended in the following populations:& lt;br/>
Individuals with unstable creatinine concentrations, including patients and those with serious co-morbid conditions.

Patients with extremes in muscle mass or diet.

The data above are obtained from the National Kidney Disease Education Program (NKDEP) which additionally recommends that when the eGFR is used in patients with extremes of body mass index for purposes of drug dosing, the eGFR should be multiplied by the estimated BMI. [facility] CHEM PANEL Alk Phos 85 39 - 136 05/10/2014 [facility] CHEM PANEL Bili Total <0.1 0.2 - 1.3 05/10/2014 [facility] CHEM PANEL Albumin Lvl 2.4 3.5 - 5.0 05/10/2014 [facility] CHEM PANEL ALT 15 0 - 65 05/10/2014 [facility] CHEM PANEL Total Protein 7.5 6.4 - 8.4 05/10/2014 [facility] CHEM PANEL Calcium Lvl 8.2 8.5 - 10.5 05/10/2014 [facility] CHEM PANEL Creatinine Lvl 1.2 0.5 - 1.4 05/10/2014 [facility] CHEM PANEL Sodium Lvl 140 135 - 145 05/10/2014 [facility] CHEM PANEL Potassium Lvl 3.7 3.5 - 5.1 05/10/2014 [facility] CHEM PANEL BUN 14 7 - 22 05/10/2014 [facility] CHEM PANEL AST 6 0 - 37 05/10/2014 [facility] CHEM PANEL Chloride Lvl 104 95 - 109 05/10/2014 [facility] CHEM PANEL CO2 31 24 - 32 05/10/2014 [facility] CHEM PANEL Glucose Lvl 86 70 - 99 05/10/2014 <sup>2</sup>Interpretive Data: Adult ref erence range values reflect the clinical guidelines
of the [employer]. [facility] DRUG SCREEN U Phencyc Scr Nega tive *NA* (05/09/14 7:00 PM) Negative 05/10/2014 [facility] DRUG SCREEN UDS Note See Note 3 (05/09/14 7:00 PM) 05/10/2014 <sup>3</sup>Interpretive Amado a: Drugs reported as positive have not been confirmed by a second
method and should be used for medical purposes only. To order
confirmation, contact laboratory.

note: Below are cut-off concentrations for all urine drugs of
abuse performed in the laboratory. Some drugs listed in the table
may not be included in this panel.

Description Cut-off concentration

Ampheta mine 1000 ng/mL
Barbiturates 200 ng/mL
Benzodiazepines 300 ng/mL
Cocaine metabolites 300 ng/mL
Opiates 300 ng/mL
Phencyclidine 25 ng/mL
Propoxyphene 300 ng/mL
Marijuana metabolites 50 ng/mL
Methadone 300 ng/mL&lt ;br/>Urine alcohol 20 mg/dL [facility] DRUG SCREEN U Opiate Scr Nega tive *NA* (05/09/14 7:00 PM) Negative 05/10/2014 [facility] DRUG SCREEN U Cannab Scr Nega tive *NA* (05/09/14 7:00 PM) Negative 05/10/2014 [facility] DRUG SCREEN U Mary Scr Nega tive *NA* (05/09/14 7:00 PM) Negative 05/10/2014 [facility] DRUG SCREEN U Benzodia Scr Nega tive *NA* (05/09/14 7:00 PM) Negative 05/10/2014 [facility] DRUG SCREEN U Cocaine Scr Posi tive *ABN* (05/09/14 7:00 PM) Negative 05/10/2014 [facility] DRUG SCREEN U Amph Scr Nega tive *NA* (05/09/14 7:00 PM) Negative 05/10/2014 [facility] HEMATOLOGY Hct 35.1 42.0 - 54.0 05/10/2014 [facility] HEMATOLOGY Hgb 11.5 14.0 - 18.0 05/10/2014 [facility] HEMATOLOGY RBC 4.37 4.70 - 6.10 05/10/2014 [facility] HEMATOLOGY WBC 12.4 3.7 - 10.4 05/10/2014 [facility] HEMATOLOGY MPV 7.6 7.4 - 10.4 05/10/2014 [facility] HEMATOLOGY Platelet 693 133 - 450 05/10/2014 [facility] HEMATOLOGY RDW 16.0 11.5 - 14.5 05/10/2014 [facility] HEMATOLOGY MCH 26.3 27.0 - 31.0 05/10/2014 [facility] HEMATOLOGY MCHC 32.8 32.0 - 36.0 05/10/2014 [facility] HEMATOLOGY MCV 80.3 80.0 - 94.0 05/10/2014 [facility] HEMATOLOGY Lymphocytes # 1.8 1.0 - 5.5 05/10/2014 [facility] HEMATOLOGY Monocytes # 0.3 0.0 - 0.8 05/10/2014 [facility] HEMATOLOGY Basophils # 0.0 0.0 - 0.2 05/10/2014 [facility] HEMATOLOGY Eosinophils # 0.4 0.0 - 0.5 05/10/2014 [facility] HEMATOLOGY Lymphocytes 14.3 20.0 - 40.0 05/10/2014 [facility] HEMATOLOGY Monocytes 2.7 2.0 - 12.0 05/10/2014 [facility] HEMATOLOGY Eosinophils 3.3 0.0 - 4.0 05/10/2014 [facility] HEMATOLOGY Basophils 0.2 0.0 - 1.0 05/10/2014 [facility] HEMATOLOGY Segs-Bands # 9.9 1.5 - 8.1 05/10/2014 [facility] HEMATOLOGY Segs 79.5 45.0 - 75.0 05/10/2014 [facility] URINE AND STOOL UA Amorph Gerri Many /HPF None Seen /HPF 05/10/2014 [facility] URINE AND STOOL UA Mucus None Seen (05/09/14 7:00 PM) None Seen 05/10/2014 [facility] URINE AND STOOL UA Bacteria None Seen (05/09/14 7:00 PM) None Seen 05/10/2014 [facility] URINE AND STOOL UA WBC 0-2 /HPF None Seen /HPF 05/10/2014 [facility] URINE AND STOOL UA Sq Epi None Seen (05/09/14 7:00 PM) Few 05/10/2014 [facility] URINE AND STOOL Micro? Performed (05/09/14 7:00 PM) 05/10/2014 [facility] URINE AND STOOL UA Protein Negative (05/09/14 7:00 PM) Negative 05/10/2014 [facility] URINE AND STOOL UA pH 7.5 5.0 - 8.0 05/10/2014 [facility] URINE AND STOOL UA Spec Grav 1.015 <=1.030 05/10/2014 [facility] URINE AND STOOL UA Leuk Est Small *ABN* (05/09/14 7:00 PM) Negative 05/10/2014 [facility] URINE AND STOOL UA Ketones Negative *NA* (05/09/14 7:00 PM) Negative 05/10/2014 [facility] URINE AND STOOL UA Glucose Negative (05/09/14 7:00 PM) Negative 05/10/2014 [facility] URINE AND STOOL UA Bili Negative *NA* (05/09/14 7:00 PM) Negative 05/10/2014 [facility] URINE AND STOOL UA RBC 0-2 /HPF 0 - 2 05/10/2014 [facility] URINE AND STOOL UA Blood Negative (05/09/14 7:00 PM) Negative 05/10/2014 [facility] URINE AND STOOL UA Urobilinogen 1.0 0.1 - 1.0 05/10/2014 [facility] URINE AND STOOL UA Nitrite Negative (05/09/14 7:00 PM) Negative 05/10/2014 [facility] URINE AND STOOL UA Turbidity Slight Cloudy (05/09/14 7:00 PM) Clear 05/10/2014 [facility] URINE AND STOOL UA Color Yellow *NA* (05/09/14 7:00 PM) Yellow 05/10/2014 [facility] CARDIAC ENZYMES CK MB Index 0.9 0.0 - 2.5 02/14/2014 [facility] CARDIAC ENZYMES Total CK 53 12 - 191 02/14/2014 [facility] CARDIAC ENZYMES Troponin-I <0.02 0.00 - 0.40 02/14/2014 [facility] CARDIAC ENZYMES CK MB 0.5 0.5 - 3.6 02/14/2014 [facility] CHEM PANEL Magnesium Lvl 1.5 1.8 - 2.4 02/14/2014 [facility] ELECTROLYTES CO2 25 24 - 32 02/14/2014 [facility] ELECTROLYTES AGAP 8.6 10.0 - 20.0 02/14/2014 [facility] ELECTROLYTES Alk Phos 76 39 - 136 02/14/2014 [facility] ELECTROLYTES eGFR 120 02/14/2014 <sup>1</sup>Result Comment: The eGFR is calculated using the CKD-EPI formula. In most young, healthy individuals the eGFR will be >90 mL/min/1.73m2. The eGFR declines with age. An eGFR of 60-89 may be normal in some populations, particularly the elderly, for whom the CKD-EPI formula has not been extensively validated. Use of the eGFR is not recommended in the following populations:& lt;br/>
Individuals with unstable creatinine concentrations, including patients and those with serious co-morbid conditions.

Patients with extremes in muscle mass or diet.

The data above are obtained from the National Kidney Disease Education Program (NKDEP) which additionally recommends that when the eGFR is used in patients with extremes of body mass index for purposes of drug dosing, the eGFR should be multiplied by the estimated BMI. [facility] ELECTROLYTES Creatinine Lvl 0.8 0.5 - 1.4 02/14/2014 [facility] ELECTROLYTES Calcium Lvl 8.9 8.5 - 10.5 02/14/2014 [facility] ELECTROLYTES AST 10 0 - 37 02/14/2014 [facility] ELECTROLYTES ALT 16 0 - 65 02/14/2014 [facility] ELECTROLYTES Chloride Lvl 104 95 - 109 02/14/2014 [facility] ELECTROLYTES Sodium Lvl 134 135 - 145 02/14/2014 [facility] ELECTROLYTES Potassium Lvl 3.6 3.5 - 5.1 02/14/2014 [facility] ELECTROLYTES Total Protein 7.5 6.4 - 8.4 02/14/2014 [facility] ELECTROLYTES Globulin 5.2 2.0 - 4.0 02/14/2014 [facility] ELECTROLYTES A/G Ratio 0.4 0.7 - 1.6 02/14/2014 [facility] ELECTROLYTES Bili Total 0.5 0.2 - 1.3 02/14/2014 [facility] ELECTROLYTES Glucose Lvl 91 70 - 99 02/14/2014 <sup>2</sup>Interpretive Data: Adult ref erence range values reflect the clinical guidelines
of the [employer]. [facility] ELECTROLYTES B/C Ratio 9 6 - 25 02/14/2014 [facility] ELECTROLYTES BUN 7 7 - 22 02/14/2014 [facility] ELECTROLYTES Albumin Lvl 2.3 3.5 - 5.0 02/14/2014 [facility] HEMATOLOGY Eosinophils # 0.2 0.0 - 0.5 02/14/2014 [facility] HEMATOLOGY Segs 79.3 45.0 - 75.0 02/14/2014 [facility] HEMATOLOGY Basophils 0.1 0.0 - 1.0 02/14/2014 [facility] HEMATOLOGY Eosinophils 1.3 0.0 - 4.0 02/14/2014 [facility] HEMATOLOGY Monocytes 6.7 2.0 - 12.0 02/14/2014 [facility] HEMATOLOGY Lymphocytes 12.6 20.0 - 40.0 02/14/2014 [facility] HEMATOLOGY Lymphocytes # 1.8 1.0 - 5.5 02/14/2014 [facility] HEMATOLOGY Segs-Bands # 11.4 1.5 - 8.1 02/14/2014 [facility] HEMATOLOGY Monocytes # 1.0 0.0 - 0.8 02/14/2014 [facility] HEMATOLOGY Platelet 713 133 - 450 02/14/2014 [facility] HEMATOLOGY MPV 7.1 7.4 - 10.4 02/14/2014 [facility] HEMATOLOGY RDW 13.7 11.5 - 14.5 02/14/2014 [facility] HEMATOLOGY MCH 27.6 27.0 - 31.0 02/14/2014 [facility] HEMATOLOGY MCV 82.7 80.0 - 94.0 02/14/2014 [facility] HEMATOLOGY MCHC 33.4 32.0 - 36.0 02/14/2014 [facility] HEMATOLOGY WBC 14.4 3.7 - 10.4 02/14/2014 [facility] HEMATOLOGY RBC 4.25 4.70 - 6.10 02/14/2014 [facility] HEMATOLOGY Hgb 11.7 14.0 - 18.0 02/14/2014 [facility] HEMATOLOGY Hct 35.2 42.0 - 54.0 02/14/2014 [facility] DRUG SCREEN U Amph Scr Nega tive *NA* (02/14/14 2:21 PM) Negative 02/14/2014 [facility] DRUG SCREEN U Cocaine Scr Posi tive *ABN* (02/14/14 2:21 PM) Negative 02/14/2014 [facility] DRUG SCREEN U Phencyc Scr Nega tive *NA* (02/14/14 2:21 PM) Negative 02/14/2014 [facility] DRUG SCREEN U Opiate Scr Nega tive *NA* (02/14/14 2:21 PM) Negative 02/14/2014 [facility] DRUG SCREEN U Benzodia Scr Nega tive *NA* (02/14/14 2:21 PM) Negative 02/14/2014 [facility] DRUG SCREEN U Cannab Scr Nega tive *NA* (02/14/14 2:21 PM) Negative 02/14/2014 [facility] DRUG SCREEN U Mary Scr Nega tive *NA* (02/14/14 2:21 PM) Negative 02/14/2014 [facility] DRUG SCREEN UDS Note See Note 3 *NA* (02/14/14 2:21 PM) 02/14/2014 <sup>3</sup>Interpretive Amado a: Drugs reported as positive have not been confirmed by a second
method and should be used for medical purposes only. To order
confirmation, contact laboratory.

note: Below are cut-off concentrations for all urine drugs of
abuse performed in the laboratory. Some drugs listed in the table
may not be included in this panel.

Description Cut-off concentration

Ampheta mine 1000 ng/mL
Barbiturates 200 ng/mL
Benzodiazepines 300 ng/mL
Cocaine metabolites 300 ng/mL
Opiates 300 ng/mL
Phencyclidine 25 ng/mL
Propoxyphene 300 ng/mL
Marijuana metabolites 50 ng/mL
Methadone 300 ng/mL&lt ;br/>Urine alcohol 20 mg/dL [facility] URINE AND STOOL UA Urobilinogen <=1.0 mg/dL 0.1 - 1.0 02/14/2014 [facility] URINE AND STOOL UA Spec Grav 1.009 <=1.030 02/14/2014 [facility] URINE AND STOOL UA Turbidity Clear (02/14/14 2:21 PM) Clear 02/14/2014 [facility] URINE AND STOOL UA Mucus Few /LPF None Seen /LPF 02/14/2014 [facility] URINE AND STOOL UA Sq Epi Occasional /LPF Few /LPF 02/14/2014 [facility] URINE AND STOOL UA WBC 1 0 - 5 02/14/2014 [facility] URINE AND STOOL UA RBC <1 0 - 2 02/14/2014 [facility] URINE AND STOOL UA Bacteria Occasional /HPF None Seen /HPF 02/14/[address] [facility] URINE AND STOOL UA Color Light Yellow *NA* (02/14/14 2:21 PM) Yellow 02/14/2014 [facility] URINE AND STOOL UA Protein Negative mg/dL Negative mg/dL 02/14/[address] [facility] URINE AND STOOL UA pH 6.0 5.0 - 8.0 02/14/2014 [facility] URINE AND STOOL UA Ketones Negative mg/dL Negative mg/dL 02/14/[address] [facility] URINE AND STOOL UA Bili Negative *NA* (02/14/14 2:21 PM) Negative 02/14/2014

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
--- OUTSIDE RECORDS SUMMARY | 2020-02-02 16:11 | XMS REPORT | Summary of Care ---
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 Duration: 30 day , Stop date: 06/28/16 11:30:00 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: TIME CRITICAL MEDICATION(Same As: Vancocin)Infusion rate< 1000 mg: infuse over 1 [id number] - 1500 mg: infuse over 1.5 [id number] - 2000 mg: infuse over 2 hours> 2001 mg: infuse over 2.5 hours MEDICATION WASTE Product Size: 1000 mgProduct Wasted: ___ mg Start Date: 05/30/16 Stop Date: 05/31/16 Status: Discontinued Results ELECTROLYTES 1 2 3 Most recent to oldest [Reference Range]: 138 mEq/L (06/13/16 7:08 AM) 141 mEq/L (06/12/16 6:16 AM) 141 mEq/L (06/09/16 6:14 AM) Sodium Lvl [135-145 mEq/L] 3.9 mEq/L (06/13/16 7:08 AM) 4.3 mEq/L 1 (06/12/16 6:16 AM) 3.4 mEq/L *LOW* (06/09/16 6:14 AM) Potassium Lvl [3.5-5.1 mEq/L] 105 mEq/L (06/13/16 7:08 AM) 107 mEq/L (06/12/16 6:16 AM) 108 mEq/L (06/09/16 6:14 AM) Chloride Lvl [95-109 mEq/L] 20 mEq/L *LOW* (06/13/16 7:08 AM) 24 mEq/L (06/12/16 6:16 AM) 22 mEq/L *LOW* (06/09/16 6:14 AM) CO2 [24-32 mEq/L] 16.9 mEq/L (06/13/16 7:08 AM) 14.3 mEq/L (06/12/16 6:16 AM) 14.4 mEq/L (06/09/16 6:14 AM) AGAP [10.0-20.0 mEq/L] 1Result Comment: Specimen Slightly Hemolyzed. CHEM PANEL 1 2 3 Most recent to oldest [Reference Range]: 2.60 mg/dL *HI* (06/13/16 7:08 AM) 2.60 mg/dL *HI* (06/12/16 6:16 AM) 2.30 mg/dL *HI* (06/09/16 6:14 AM) Creatinine Lvl [0.50-1.40 mg/dL] 27 mL/min/1.73m2 1 *NA* (06/13/16 7:08 AM) 27 mL/min/1.73m2 2 *NA* (06/12/16 6:16 AM) 31 mL/min/1.73m2 3 *NA* (06/09/16 6:14 AM) eGFR 27 mg/dL *HI* (06/13/16 7:08 AM) 28 mg/dL *HI* (06/12/16 6:16 AM) 20 mg/dL (06/09/16 6:14 AM) BUN [7-22 mg/dL] 73 mg/dL (06/13/16 7:08 AM) 83 mg/dL (06/12/16 6:16 AM) 84 mg/dL (06/09/16 6:14 AM) Glucose Lvl [70-99 mg/dL] 9.7 mg/dL (06/13/16 7:08 AM) 9.9 mg/dL (06/12/16 6:16 AM) 9.4 mg/dL (06/09/16 6:14 AM) Calcium Lvl [8.5-10.5 mg/dL] 1Result Comment: The eGFR is calculated using [...] be mul tiplied by the estimated BMI. TOXICOLOGY 1 2 3 Most recent to oldest [Reference Range]: 1600 *NA* (06/09/16 4:31 PM) [id number] *NA* (06/04/16 6:04 PM) [id number] *NA* (06/03/16 5:51 PM) [facility] 23.3 ug/ml *NA* (06/09/16 4:31 PM) 18.9 ug/ml *NA* (06/04/16 6:04 PM) 29.3 ug/ml *NA* (06/03/16 5:51 PM) Vanco Tr HEMATOLOGY 1 2 3 Most recent to oldest [Reference Range]: 5.5 K/CMM (06/12/16 6:16 AM) 9.0 K/CMM (06/07/16 6:03 AM) 9.8 K/CMM (05/31/16 4:47 AM) WBC [3.7-10.4 K/CMM] 4.07 M/CMM *LOW* (06/12/16 6:16 AM) 3.86 M/CMM *LOW* (06/07/16 6:03 AM) 3.57 M/CMM *LOW* (05/31/16 4:47 AM) RBC [4.70-6.10 M/CMM] 10.9 g/dL *LOW* (06/12/16 6:16 AM) 10.3 g/dL *LOW* (06/07/16 6:03 AM) 9.7 g/dL *LOW* (05/31/16 4:47 AM) Hgb [14.0-18.0 g/dL] 34.3 % *LOW* (06/12/16 6:16 AM) 31.6 % *LOW* (06/07/16 6:03 AM) 29.1 % *LOW* (05/31/16 4:47 AM) Hct [42.0-54.0 %] 84.4 fL (06/12/16 6:16 AM) 81.8 fL (06/07/16 6:03 AM) 81.5 fL (05/31/16 4:47 AM) MCV [80.0-94.0 fL] 26.9 pg *LOW* (06/12/16 6:16 AM) 26.6 pg *LOW* (06/07/16 6:03 AM) 27.2 pg (05/31/16 4:47 AM) MCH [27.0-31.0 pg] 31.8 g/dL *LOW* (06/12/16 6:16 AM) 32.5 g/dL (06/07/16 6:03 AM) 33.3 g/dL (05/31/16 4:47 AM) MCHC [32.0-36.0 g/dL] 21.2 % *HI* (06/12/16 6:16 AM) 22.0 % *HI* (06/07/16 6:03 AM) 22.3 % *HI* (05/31/16 4:47 AM) RDW [11.5-14.5 %] 481 K/CMM *HI* (06/12/16 6:16 AM) 521 K/CMM *HI* (06/07/16 6:03 AM) 562 K/CMM *HI* (05/31/16 4:47 AM) Platelet [133-450 K/CMM] 8.1 fL (06/12/16 6:16 AM) 7.9 fL (06/07/16 6:03 AM) 7.5 fL (05/31/16 4:47 AM) MPV [7.4-10.4 fL] 51.3 % (06/12/16 6:16 AM) 65.0 % (06/07/16 6:03 AM) 61.2 % (05/31/16 4:47 AM) Segs [45.0-75.0 %] 25.1 % (06/12/16 6:16 AM) 18.0 % *LOW* (06/07/16 6:03 AM) 18.4 % *LOW* (05/31/16 4:47 AM) Lymphocytes [20.0-40.0 %] 9.0 % (06/12/16 6:16 AM) 8.5 % (06/07/16 6:03 AM) 8.7 % (05/31/16 4:47 AM) Monocytes [2.0-12.0 %] 11.9 % *HI* (06/12/16 6:16 AM) 6.1 % *HI* (06/07/16 6:03 AM) 9.3 % *HI* (05/31/16 4:47 AM) Eosinophils [0.0-4.0 %] 2.7 % *HI* (06/12/16 6:16 AM) 2.4 % *HI* (06/07/16 6:03 AM) 2.4 % *HI* (05/31/16 4:47 AM) Basophils [0.0-1.0 %] 2.8 K/CMM (06/12/16 6:16 AM) 5.8 K/CMM (06/07/16 6:03 AM) 6.0 K/CMM (05/31/16 4:47 AM) Segs-Bands # [1.5-8.1 K/CMM] 1.4 K/CMM (06/12/16 6:16 AM) 1.6 K/CMM (06/07/16 6:03 AM) 1.8 K/CMM (05/31/16 4:47 AM) Lymphocytes # [1.0-5.5 K/CMM] 0.5 K/CMM (06/12/16 6:16 AM) 0.8 K/CMM (06/07/16 6:03 AM) 0.9 K/CMM *HI* (05/31/16 4:47 AM) Monocytes # [0.0-0.8 K/CMM] 0.6 K/CMM *HI* (06/12/16 6:16 AM) 0.5 K/CMM (06/07/16 6:03 AM) 0.9 K/CMM *HI* (05/31/16 4:47 AM) Eosinophils # [0.0-0.5 K/CMM] 0.1 K/CMM (06/12/16 6:16 AM) 0.2 K/CMM (06/07/16 6:03 AM) 0.2 K/CMM (05/31/16 4:47 AM) Basophils # [0.0-0.2 K/CMM] Normal (05/28/16 12:55 PM) RBC Morph Normal (05/28/16 12:55 PM) Plt Morph 13.9 seconds (06/12/16 6:16 AM) PT [12.0-14.7 seconds] 1.05 (06/12/16 6:16 AM) INR [0.85-1.17] 35.5 seconds (06/12/16 6:16 AM) PTT [22.9-35.8 seconds] Immunizations Given and Recorded Vaccine Date Status [...] EVERYDAY Assessment and Plan Extracted from: Title: Progress Note *AK Author: Shayy Fernandez MD Amado e: 06/17/16 Impression and Plan 1. Osteomyelitis of [...]
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
--- OUTSIDE RECORDS SUMMARY | 2020-02-02 16:14 | XMS REPORT | Continuity of Care Document ---
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 acetaminophen MEDICATION WASTE Product Size: 1000 mg Product Wasted: ___ mg Memoria l [facility] Labetalol 2016-06-12 15:55:00 No Notes: (Same as: Normodyne, Trandate) Push over 2 minutes Give bolus over 2-3 minutes. [facility] Hydralazine 2016-06-12 15:55:00 No Notes: (Same as: Apresoline) Push over 5 minutes [facility] POLYETHYLENE GLYCOL 3350 2016-06-12 15:53:00 No Notes: Dissolve in 8 oz of water or juice. (Same as: Miralax) [facility] Saline Flush 0.9% 2016-06-12 15:53:00 No Notes: (Same as: BD Posiflush) [facility] Morphine 2016-06-12 15:53:00 No Not es: (Same as:MORPhine Sulfate) [facility] Temazepam 2016-06-12 15:53:00 No Notes: (Sa me As: Restoril) [facility] Dulcolax Laxative 2016-06-12 15:53:00 No Notes: (Same As: Dulcolax, Correctol) (Do Not Crush) "Do Not Crush" [facility] Ondansetron 2016-06-12 15:53:00 No Notes: (Same as: Zofran) MEDICATION WASTE Product Size: 4 mg Product Wasted: ___ mg [facility] Acetaminophen 325 MG / Hydrocodone Bitartrate 5 MG Oral Tabl et 2016-06-12 15:53:00 No Notes: (Sa me as: Jerome 325/5) Do not exceed 4gm/day of acetaminophen. [facility] acetaminophen-codeine #3 2016-06-12 15:53:00 No Notes: Do not exceed 4gm/day of acetaminophen. (Same as: Tylenol with Codeine # 3) [facility] Acetaminophen 2016-06-12 15:53:00 No Notes: Do not exceed 4 gm/day. (Same as: Tylenol) [facility] levofloxacin 750 mg oral tablet 2016-06-11 16:45:00 Yes 750 mg = 1 tab, PO, [id number], X 14 day, # 7 tab, 0 Refill(s) Nasra Appleton 24 HR Nifedipine 90 MG Extended Release Tablet 2016-06-11 16:28: 33 Yes 90 mg = 1 tab, PO, Daily, # 30 tab, 0 Refill(s) [facility] Hydralazine Hydrochloride 25 MG Oral Tablet 2016-06-11 16:28:27 Yes 25 mg = 1 tab, PO, Q8H, # 90 tab, 0 Refill(s) [facility] clopidogrel 75 mg oral tablet 2016-06-11 16:28:13 Yes 75 mg = 1 tab, PO, Daily, # 90 tab, 0 Refill(s) Landen Trinidad carvedilol 25 mg oral tablet 2016-06-11 16:28:12 Yes 25 mg = 1 tab, PO, Q12H, # 60 tab, 0 Refill(s) [facility] amLODIPine 5 mg oral tablet 2016-06-11 16:27:59 Yes 10 mg = 2 tab, PO, Daily, # 60 tab, 0 Refill(s) Landen Trinidad baclofen 10 mg oral tablet 2016-06-11 16:27:00 Yes 10 mg = 1 tab, PO, TID, # 21 tab, 0 Refill(s) [facility] atorvastatin 40 MG Oral Tablet [Lipitor] 2016-06-11 16:27:00 Yes 40 mg = 1 tab, PO, Bedtime, # 30 tab, 0 Refill(s) [facility] 168 HR Clonidine 0.0125 MG/HR Transdermal Patch 2016-06-11 16:27 :00 Yes 1 patch, TOP, Q7D, # 3 patch, 0 Refill(s) [facility] vancomycin + sodium chloride 0.9% INJ 100 mL 2016-06-10 22:00:00 No Notes: TIME CRITICAL MEDICATION (Same As: Vancocin) [facility] Risperdal 2016-06-09 23:00:00 No Notes: (Sa me as: Risperdal) [facility] Haldol 2016-06-09 19:36:00 No Notes: (Same as: Haldol) [facility] levofloxacin 2016-06-09 07:00:00 No Notes: Do not give w/antacids, dairy pdt & minerals Take 1 hr before or [address] [facility] Levaquin 2016-06-09 03:00:00 No Notes: Do not give w/antacids, dairy pdt & minerals Take 1 hr before or 2 hr after dairy products [facility] cloNIDine 0.3 mg/24 hr transdermal film, extended release 2016-06-08 01:00:00 No Notes: Patch d elivers 0.3 mg/24 hours; Patch is applied weekly. [id number]. "Remove old patch before application of new patch" [facility] 168 HR Clonidine 0.70671 MG/HR Transdermal Patch 2016-06-07 21:1 0:00 No Notes: Patch delivers 0.2 mg /24 hours; Patch is applied weekly. "Remove old patch before application of new patch" (Same As: Euzilhmk-KAL-1) [facility] Hydralazine 2016-06-07 00:00:00 No Notes: (Same as: Apresoline) Push over 5 minutes [facility] Mirtazapine 2016-06-02 03:00:00 No Notes: ( Same as:Remeron) [facility] Normodyne 2016-06-02 00:26:00 No Notes: (Same as: Normodyne, Trandate) Push over 2 minutes Give bolus over 2-3 minutes. [facility] vancomycin + sodium chloride 0.9% 250 mL INJ (for IV set) 25 0 mL 2016-06-01 22:00:00 No 2001 mg: infuse over 2.5 hours MEDICATION WASTE Product Size: 1000 mg Product Wasted: ___ mg Nasra Trinidad Hydralazine 2016-05-31 15:40:00 No Notes: (Same as: Apresoline) Push over 5 minutes Nasra Trinidad 168 HR Clonidine 0.60226 MG/HR Transdermal Patch 2016-05-30 23:0 0:00 No Notes: Patch delivers 0.2 mg /24 hours; Patch is applied weekly. "Remove old patch before application of new patch" (Same As: Pshwrglm-EZM-8) Nasra Trinidad vancomycin + sodium chloride 0.9% INJ 250 mL 2016-05-30 17:30:00 No 2001 mg: infuse over 2.5 hours MEDICATION WASTE Product Size: 1000 mg Product Wasted: ___ mg Nasra rush Hydralazine Hydrochloride 100 MG Oral Tablet 2016-05-29 19:00:00 No Notes: (Same as: Apresoline) May interfere w/enteral feedings - Take With Food Nasra Trinidad potassium chloride 20 mEq oral tablet, extended release 2016-05-29 15:00:00 No Notes: (Same as : K-Dur 20) "Do Not Crush" With food and full glass of water Nasra Trinidad Lipitor 2016-05-29 03:00:00 No Notes: (Same as: Lipitor) Nasra Trinidad D5W 1/2NS 1,000 mL 2016-05-28 23:32:00 No 1,000 mL, Rate: 60 ml/hr, Infuse over: 16.7 hr, Route: IV, Dosing Weight 67.727 kg, Total Volume: 1,000, Start date: 05/28/16 17:32:00 REPRODUCTIVE ENDOCRINOLOGIST, Duration: 30 day, Stop date: 06/27/16 17:31:00 REPRODUCTIVE ENDOCRINOLOGIST Nasra Stevenann 168 HR Clonidine 0.58266 MG/HR Transdermal Patch 2016-05-28 21:0 0:00 No Notes: Patch delivers 0.1 mg /24 hours; Patch is applied weekly. "Remove old patch before application of new patch" (Same As: Ptamdawv-QWM-9) Nasra Stevenann remove patch 2016-05-28 21:00:00 No Notes: Remove old patch before application of new patch. Nasra Madina nn Vancomycin 2016-05-28 15:00:00 No 2001 mg: infuse over 2.5 hours Nasra Stevenann Thiamine 2016-05-28 15:00:00 No Notes: (David e As: Vitamin B1) [facility] Amos 24 HR Nifedipine 90 MG Extended Release Tablet 2016-05-28 15:00: 00 No Notes: (Same as:Adalat CC, Procardia XL) Give on empty stomach. Take 1 hour before or 2 hours after meal; "Avoid grapefruit and grapefruit juice". Do not crush Nasra Trinidad Multiple Vitamins with Minerals oral tablet 2016-05-28 15:00:00 No Notes: (Same as:Thera-M, Theragran-M) WASTE: F/P - Black; E - Municipal Trash Bin Give with food. Nasra Stevenann Famotidine 20 MG Oral Tablet [Pepcid] 2016-05-28 15:00:00 N o Notes: (Same as: Pepcid) Nasra Stevenann clopidogrel 2016-05-28 15:00:00 No Notes: ( Same As: Plavix) Nasra Appleton carvedilol 2016-05-28 15:00:00 No Notes: Give with food. (Same As: Coreg) [facility] Amos Baclofen 2016-05-28 15:00:00 No Notes: ([facility] e As: Lioresal) [facility] [place] Amlodipine 2016-05-28 15:00:00 No Notes: (S shon as: Norvasc) Nasra Stevenann Piperacillin / tazobactam 2016-05-28 06:00:00 No Notes: (Same as: Zosyn) Dosing based on Piperacillin component MEDICATION WASTE Product Size: 3375 mg Product Wasted: ___ mg [facility] Amos Hydralazine Hydrochloride 25 MG Oral Tablet 2016-05-28 06:00:00 No Notes: (Same as: Apresoline) May interfere w/enteral feedings Take With Food. Emma emotamara Trinidad Enoxaparin 2016-05-28 04:00:00 No Notes: (S shon as: Lovenox) Nasra Appleton Hydralazine 2016-05-28 03:10:00 No Notes: (Same as: Apresoline) Push over 5 minutes Nasra Stevenann Docusate Sodium 100 MG Oral Capsule 2016-05-28 03:09:00 No Notes: (Same as: Colace) (Do Not Crush) Landen l Amos cyclobenzaprine 2016-05-28 03:09:00 No Notes: (Same As: Flexeril) Nasra Trinidad Acetaminophen 325 MG / butalbital 50 MG / Caffeine 40 MG Ora l Tablet 2016-05-28 03:09:00 No Notes: (bhzvsmyurutdy-wgsioasjnh-efyfcvgv 325-50-40mg) Do not exceed 4 gm/day of acetaminophen. (Same as: Esgic, Fioricet) Nasra Trinidad Ondansetron 2016-05-28 03:08:00 No Notes: (Same as: Zofran) MEDICATION WASTE Product Size: 4 mg Product Wasted: ___ mg Nasra Trinidad Acetaminophen 2016-05-28 03:08:00 No Notes: Do not exceed 4 gm/day. (Same as: Tylenol) Nasra Trinidad Acetaminophen 325 MG / Hydrocodone Bitartrate 5 MG Oral Tabl et 2016-05-28 03:08:00 No Notes: (Sa me as: Jerome 325/5) Do not exceed 4gm/day of acetaminophen. Nasra Trinidad Piperacillin 3000 MG / tazobactam 375 MG Injection [Zosyn] 2016-05-27 18:41:00 Yes 3.375 gm, IV, Q8H, X 21 day, # 63 bag, 0 Refill(s) Nasra Trinidad thiamine 100 mg oral tablet 2016-05-27 18:41:00 Yes 100 mg = 1 tab, PO, Daily, X 7 day, # 7 tab, 0 Refill(s) Nasra Trinidad Multiple Vitamins with Minerals oral tablet 2016-05-27 18:41:00 Yes 1 tab, PO, Daily, # 30 tab, 0 Refill(s) Nasra Trinidad Hydralazine Hydrochloride 25 MG Oral Tablet 2016-05-27 18:41:00 Yes 25 mg = 1 tab, PO, Q8H, # 90 tab, 0 Refill(s) Nasra Trinidad hydrALAZINE 20 mg/mL injectable solution 2016-05-27 18:41:00 Yes 180 | Elevated BP, 0 Refill(s) Nasra Her meier heparin sodium, porcine 2500 UNT/ML Injectable Solution 2016-05-27 18:41:00 Yes SUB-Q, Q12H, 0 Refill(s) Nasra Trinidad acetaminophen 325 mg oral tablet 2016-05-27 18:41:00 Yes 650 mg = 2 tab, PO, Q6H, PRN Pain Score 1-3, 0 Refill(s) Nasra Trinidad Acetaminophen 325 MG / butalbital 50 MG / Caffeine 40 MG Ora l Tablet 2016-05-27 18:41:00 Yes 1 tab, PO, Q6H, PRN Headache 6-10, 0 Refill(s) Nasra Trinidad Docusate Sodium 100 MG Oral Capsule 2016-05-27 18:41:00 Yes 100 mg = 1 cap, PO, BID, PRN Constipation, 0 Refill(s) Nasra Trinidad carvedilol 25 mg oral tablet 2016-05-27 18:41:00 Yes 25 mg = 1 tab, PO, Q12H, # 60 tab, 0 Refill(s) Nasra Trinidad amLODIPine 5 mg oral tablet 2016-05-27 18:41:00 Yes 10 mg = 2 tab, PO, Daily, # 60 tab, 0 Refill(s) Landen Trinidad 24 HR Nifedipine 90 MG Extended Release Tablet 2016-05-27 18:41: 00 Yes 90 mg = 1 tab, PO, Daily, # 30 tab, 0 Refill(s) Nasra Trinidad vancomycin 750 mg/150 mL-NaCl 0.9% intravenous solution 2016-05-27 18:41:00 Yes 750 mg, IV, Q24 H, Check Random Vancomycin level every morning before giving daily dose given chronic kidney disease., X 21 day, # 21 bag, 0 Refill(s) Nasra Trinidad potassium chloride 2016-05-27 17:00:00 No Notes: (Same as: KCL) Infuse no faster than 10 mEq/hr if given peripherally. [facility] [place] potassium chloride 2016-05-26 16:00:00 No Notes: (Same as: KCL) Infuse no faster than 10 mEq/hr if given peripherally. Nasra Trinidad Potassium Chloride 1.33 MEQ/ML Oral Solution 2016-05-26 13:00:00 No Notes: (Same as: Potassium Chloride) Dacia daniloal Amos Amlodipine 2016-05-25 15:00:00 No Notes: (S shon as: Norvasc) Nasra Stevenann Fioricet 2016-05-24 23:46:00 No Notes: (tppwbkfttcgxn-hhqzbntvqc-qvddjmzy 325-50-40mg) Do not exceed 4 gm/day of acetaminophen. (Same as: Esgic, Fioricet) [facility] Hydralazine Hydrochloride 25 MG Oral Tablet 2016-05-24 20:38:00 No Notes: (Same as: Apresoline) May interfere w/enteral feedings Take With Food. Emma maico Trinidad Hydralazine 2016-05-23 16:24:00 No 5 mg, Route: IV, ONCE, Dosing Weight 60, kg, Start date: 05/23/16 10:24:00 REPRODUCTIVE ENDOCRINOLOGIST, Stop date: 05/23/16 10:24:[address] [facility] acetaminophen 325 mg oral tablet 2016-05-23 07:55:00 No Notes: Do not exceed 4 gm/day. (Same as: Tylenol) [facility] sodium chloride 0.45% 1000 ml INJ 1,000 mL 2016-05-22 15:19:00 No 1,000 mL, Rate: 75 ml/hr, Infuse over: 13.3 hr, Route: IV, Dosing Weight 60 kg, Total Volume: 1,000, Start date: 05/22/16 9:19:00 REPRODUCTIVE ENDOCRINOLOGIST, Duration: 30 day, Stop date: 06/21/16 9:18:[address] [facility] adri Sodium Chloride 0.9% IV 2016-05-22 04:55:00 No 25 mL, Route: IV, Start date: 05/21/16 22:55:00 REPRODUCTIVE ENDOCRINOLOGIST, Duration: 30 day, Stop date: 06/20/16 22:54:00 REPRODUCTIVE ENDOCRINOLOGIST, PRN Line Flush [facility] BD Normal Saline Flush 2016-05-22 04:55:00 No Notes: (Same as: BD Posiflush) [facility] Vancomycin 2016-05-21 15:00:00 No 2001 mg: infuse over 2.[address] [facility] Plavix 2016-05-20 23:33:00 No Notes: (Same As: Plavix) [facility] Coreg 2016-05-20 16:05:00 No Notes: Give with food. (Same As: Coreg) [facility] multivitamin with minerals 2016-05-20 15:00:00 No Notes: (Same as:Thera-M, Theragran-M) WASTE: F/P - Black; E - Municipal Trash Bin Give with food. [facility] Thiamine 2016-05-20 15:00:00 No Notes: (David e As: Vitamin B1) [facility] [place] Vancomycin 2016-05-20 15:00:00 No 750 mg, Route: IVPB, Drug form: INJ, [id number], Dosing Weight 60, kg, Start date: 05/20/16 9:00:00 REPRODUCTIVE ENDOCRINOLOGIST, Duration: 30 day, Stop date: 06/18/16 9:00:00 REPRODUCTIVE ENDOCRINOLOGIST [facility] [place] Vancomycin 2016-05-20 13:09:00 No 750 mg, Route: IVPB, ONCE, Dosing Weight 60, kg, Start date: 05/20/16 7:09:00 REPRODUCTIVE ENDOCRINOLOGIST, Stop date: 05/20/16 7:09:00 REPRODUCTIVE ENDOCRINOLOGIST [facility] [place] Hydralazine 2016-05-20 07:03:00 No Notes: (Same as: Apresoline) Push over 5 minutes Nasra Trinidad heparin sodium, porcine 2500 UNT/ML Injectable Solution 2016-05-20 03:00:00 No Notes: porcine heparin [facility] Lipitor 2016-05-20 03:00:00 No Notes: (Same as: Lipitor) [facility] [place] Zosyn 2016-05-19 20:10:00 No Notes: (Same as: Zosyn) Dosing based on Piperacillin component MEDICATION WASTE Product Size: 3375 mg Product Wasted: ___ mg [facility] Nifedical XL 2016-05-19 15:00:00 No Notes: (Same as: Procardia XL) [facility] Famotidine 20 MG Oral Tablet [Pepcid] 2016-05-19 15:00:00 N o Notes: (Same as: Pepcid) [facility] Baclofen 2016-05-19 15:00:00 No Notes: (David e As: Lioresal) [facility] clopidogrel 2016-05-19 15:00:00 No Notes: ( Same As: Plavix) [facility] cyclobenzaprine 10 mg oral tablet 2016-05-19 04:40:00 Yes 10 mg = 1 tab, PO, TID, PRN for spasms, # 30 tab, 0 Refill(s) [facility] baclofen 10 mg oral tablet 2016-05-19 04:39:00 Yes 10 mg = 1 tab, PO, TID, # 270 tab, 0 Refill(s) [facility] atorvastatin 40 MG Oral Tablet [Lipitor] 2016-05-19 04:39:00 Yes 40 mg = 1 tab, PO, Bedtime, # 90 tab, 0 Refill(s) [facility] Famotidine 20 MG Oral Tablet [Pepcid] 2016-05-19 04:38:00 Y es 20 mg = 1 tab, PO, BID, # 180 tab, 0 Refill(s) Nasra Stevenann 24 HR Nifedipine 30 MG Extended Release Tablet [Nifedical] 2016-05-19 04:38:00 No 30 mg = 1 tab, PO, Daily, # 30 tab, 0 Refill(s) [facility] Sodium Chloride 0.154 MEQ/ML Injectable Solution 2016-05-19 04:2 0:00 No 1,000 mL, Rate: 125 ml/hr, I nfuse over: 8 hr, Route: IV, Dosing Weight 59.3 kg, Total Volume: 1,000, Start date: 05/18/16 22:20:00 REPRODUCTIVE ENDOCRINOLOGIST, Duration: 30 day, Stop date: 06/17/16 22:19:00 REPRODUCTIVE ENDOCRINOLOGIST Landen Trinidad Saline Flush 0.9% 2016-05-19 04:20:00 No Notes: (Same as: BD Posiflush) [facility] Docusate 2016-05-19 04:20:00 No Notes: (Same as: Colace) (Do Not Crush) [facility] Hydralazine 2016-05-19 04:16:00 No Notes: (Same as: Apresoline) Push over [address] [facility] Hydralazine 2016-05-19 04:08:00 No 5 mg, Route: IV, ONCE, Dosing Weight 59.3, kg, Start date: 05/18/16 22:08:00 REPRODUCTIVE ENDOCRINOLOGIST, Stop date: 05/18/16 22:08:00 REPRODUCTIVE ENDOCRINOLOGIST [facility] Sodium Chloride 0.154 MEQ/ML Injectable Solution 2016-05-19 03:4 3:00 No 1,000 mL, 2,000 ml/hr, Infus e Over: 30 minutes, Route: IV, 1,000, Drug form: INJ, ONCE, Priority: STAT, Dosing Weight 59.3 kg, Start date: 05/18/16 21:43:00 REPRODUCTIVE ENDOCRINOLOGIST, Duration: 1 doses or times, Stop date: 05/18/16 21:43:00 REPRODUCTIVE ENDOCRINOLOGIST Nasra Trinidad Labetalol 2016-05-19 02:25:00 No 20 mg, Route: IVP, Drug form: INJ, ONCE, Dosing Weight 59.3, kg, Priority: STAT, Start date: 05/18/16 20:25:00 REPRODUCTIVE ENDOCRINOLOGIST, Stop date: 05/18/16 20:25:00 REPRODUCTIVE ENDOCRINOLOGIST Sue Garber Vancomycin 2016-05-19 02:21:00 No 2001 mg: infuse over 2.5 hours MEDICATION WASTE Product Size: 1000 mg Product Wasted: ___ mg Nasra Trinidad Saline Flush 0.9% 2016-05-19 02:21:00 No Notes: (Same as: BD Posiflush) Nasra Trinidad Zosyn 2016-05-19 02:21:00 No 3.375 gm, Route: IVPB, ONCE, Dosing Weight 59.3, kg, Priority: STAT, Start date: 05/18/16 20:21:00 REPRODUCTIVE ENDOCRINOLOGIST, Stop date: 05/18/16 20:21:00 REPRODUCTIVE ENDOCRINOLOGIST Nasra Stevenann Procardia XL 2016-04-28 14:00:00 No Notes: (Same as: Procardia XL) "Do Not Crush" "Avoid grapefruit and grapefruit juice" Nasra Appleton 24 HR Nifedipine 60 MG Extended Release Tablet 2016-04-28 13:20: 00 Yes 60 mg = 1 tab, PO, Daily, # 30 tab, 0 Refill(s) [facility] Hydralazine Hydrochloride 50 MG Oral Tablet 2016-04-28 13:20:00 Yes 50 mg = 1 tab, PO, Q8H, # 90 tab, 0 Refill(s) [facility] tramadol hydrochloride 50 MG Oral Tablet 2016-04-28 04:35:00 No Notes: Not to exceed 400mg/day. (Same As: Ultram) [facility] Hydralazine Hydrochloride 50 MG Oral Tablet 2016-04-27 17:38:00 No Notes: (Same as: Apresoline) May interfere w/enteral feedings Take With Food [facility] 24 HR Nifedipine 30 MG Extended Release Tablet 2016-04-27 14:00: 00 No 30 mg, 1 tab, Route: PO, Drug form: ERTA B, Daily, Dosing Weight 62.9, kg, Start date: 04/27/16 9:00:00 CDT, Duration: 30 day, Stop date: 05/26/16 9:00:00 REPRODUCTIVE ENDOCRINOLOGIST Nasra Trinidad clopidogrel 2016-04-27 14:00:00 No Notes: ( Same As: Plavix) Nasra Trinidad Aspirin 81 MG Enteric Coated Tablet 2016-04-27 14:00:00 No Notes: Do not crush or chew. (Same As: Ecotrin) [facility] Amlodipine 2016-04-27 14:00:00 No Notes: (S shon as: Norvasc) Nasra Trinidad hydroxyurea 2016-04-27 04:00:00 No Notes: (Same as: Hydrea) Chemotherapy agent/Handle with caution "Do Not Crush" WASTE: F/P - Black; E - Yellow [facility] heparin 2016-04-27 03:18:00 No Notes: porci ne heparin [facility] Sodium Chloride 0.154 MEQ/ML Injectable Solution 2016-04-27 03:1 6:00 No 1,000 mL, Rate: 100 ml/hr, I nfuse over: 10 hr, Route: IV, Dosing Weight 62.9 kg, Total Volume: 1,000, Start date: 04/26/16 22:16:00 CDT, Duration: 30 day, Stop date: 05/26/16 22:15:00 REPRODUCTIVE ENDOCRINOLOGIST Landen Trinidad Sodium Chloride 0.154 MEQ/ML Injectable Solution 2016-04-27 03:1 4:00 No 500 mL, 500 ml/hr, Infuse Ov er: 1 hr, Route: IV, 500, Drug form: INJ, ONCE, Priority: STAT, Dosing Weight 62.9 kg, Start date: 04/26/16 22:14:00 CDT, Duration: 1 doses or times, Stop date: 04/26/16 22:14:[address] [facility] Labetalol 2016-04-27 00:12:00 No Notes: (Same as: Normodyne, Trandate) Push over 2 minutes Give bolus over 2-[address] [facility] Labetalol 2016-04-26 23:15:00 No Notes: (Same as: Normodyne, Trandate) Push over 2 minutes Give bolus over 2-[address] [facility] Ativan 2016-04-26 22:07:00 No Notes: (Same as: Ativan) [facility] tramadol hydrochloride 50 MG Oral Tablet 2016-04-26 22:02:00 Yes 50 mg = 1 tab, PO, Q6H, PRN Pain, # 40 tab, 0 Refill(s) [facility] cyclobenzaprine 10 mg oral tablet 2016-04-26 22:02:00 No 10 mg = 1 tab, PO, TID, PRN for spasms, # 30 tab, 0 Refill(s) [facility] baclofen 10 mg oral tablet 2016-04-26 22:02:00 Yes 10 mg = 1 tab, PO, TID, # 270 tab, 0 Refill(s) [facility] Hydralazine 2016-04-26 22:02:00 No Notes: (Same as: Apresoline) Push over 5 minutes [facility] Versed 2016-04-26 21:27:00 No 2 mg, Route: IVP, ONCE, Dosing Weight 68.182, kg, Priority: STAT, Start date: 04/26/16 16:27:00 CDT, Stop date: 04/26/16 16:27:00 CDT [facility] Saline Flush 0.9% 2016-04-26 21:21:00 No Notes: (Same as: BD Posiflush) [facility] Sodium Chloride 0.154 MEQ/ML Injectable Solution 2016-04-26 21:2 1:00 No 1,000 mL, 2,000 ml/hr, Infus e Over: 30 minutes, Route: IV, ONCE, Priority: STAT, Dosing Weight 63.9 kg, Start date: 04/26/16 16:21:00 CDT, Duration: 1 doses or times, Stop date: 04/26/16 16:21:[address] [facility] Haldol 2016-04-26 21:20:00 No 5 mg, Route: IM, ONCE, Dosing Weight 63.9, kg, Priority: STAT, Start date: 04/26/16 16:20:00 CDT, Stop date: 04/26/16 16:20:00 CDT [facility] Famotidine 20 MG Oral Tablet [Pepcid] 2016-04-20 15:21:00 Y es 20 mg = 1 tab, PO, Daily, # 60 tab, 0 Refill(s), other [facility] amLODIPine 5 mg oral tablet 2016-04-20 14:10:00 Yes 10 mg = 2 tab, PO, Daily, # 60 tab, 0 Refill(s) Landen Trinidad 24 HR Nifedipine 30 MG Extended Release Tablet 2016-04-20 14:10: 00 Yes 30 mg = 1 tab, PO, Daily, # 30 tab, 0 Refill(s) Nasra Trinidad Hydralazine Hydrochloride 25 MG Oral Tablet 2016-04-20 14:10:00 Yes 25 mg = 1 tab, PO, Q6H, # 120 tab, 0 Refill(s) Nasra Trinidad atorvastatin 20 mg oral tablet 2016-04-20 14:10:00 Yes 20 mg = 1 tab, PO, Bedtime, # 30 tab, 0 Refill(s) Nasra Trinidad hydroxyurea 500 mg oral capsule 2016-04-20 14:00:00 Yes 500 mg = 1 cap, PO, [id number], X 60 day, # 120 cap, 0 Refill(s) Nasra Trinidad Aspirin 81 MG Enteric Coated Tablet 2016-04-20 13:59:23 Yes 81 mg = 1 tab, PO, Daily, # 30 tab, 2 Refill(s) Nasra Trinidad clopidogrel 75 mg oral tablet 2016-04-20 13:56:00 Yes 75 mg = 1 tab, PO, Daily, # 90 tab, 0 Refill(s) Sue Garber 24 HR Nifedipine 30 MG Extended Release Tablet 2016-04-20 13:56: 00 No 30 mg = 1 tab, PO, Daily, 0 Refill(s) Nasra Trinidad hydroxyurea 500 mg oral capsule 2016-04-20 13:56:00 No 500 mg = 1 cap, PO, [id number], 0 Refill(s) Nasra doadri Hydralazine Hydrochloride 25 MG Oral Tablet 2016-04-20 13:56:00 No 25 mg = 1 tab, PO, Q6H, 0 Refill(s) Niranjan Trinidad clindamycin 150 mg oral capsule 2016-04-20 13:56:00 Yes 300 mg = 2 cap, PO, [id number], X 7 day, # 42 cap, 0 Refill(s) Nasra Stevenann Plavix 2016-04-20 01:00:00 No Notes: (Same As: Plavix) [facility] MAGNESIUM GLUCONATE 2016-04-19 14:00:00 No Notes: (Same as: [place]) Magnesium gluconate 500mg=27mg elemental magnesium Dose= mg magnesium gluconate(___mg elemental magnesium) [facility] orial Amos Clindamycin 2016-04-18 18:00:00 No Notes: ( Same As: Cleocin) [facility] 24 HR Nifedipine 30 MG Extended Release Tablet 2016-04-17 14:00: 00 No Notes: (Same as: Procardia XL) "Do Not C ocasio" "Avoid grapefruit and grapefruit juice" [facility] multivitamin 2016-04-17 14:00:00 No Notes: Give with food. (Same As : Therapeutic multivitamins) [facility] racieladri Thiamine 2016-04-17 14:00:00 No Notes: (David e As: Vitamin B1) [facility] 2016-04-17 14:00:00 No Notes: (Same as: Norvasc) [facility] remove patch 2016-04-17 14:00:00 No Notes: Remove old patch before application of new patch. WASTE: F/P - P Waste Black; E - P Waste Black [facility] atorvastatin 2016-04-17 02:00:00 No Notes: (Same As: Lipitor) [facility] Hydralazine 2016-04-16 23:00:00 No Notes: (Same as: Apresoline) May interfere w/enteral feedings Take With Food. [facility] 24 HR Nifedipine 30 MG Extended Release Tablet 2016-04-16 20:05: 00 No Notes: (Same as: Procardia XL) "Do Not C ocasio" "Avoid grapefruit and grapefruit juice" [facility] Clonidine Hydrochloride 0.2 MG Oral Tablet 2016-04-16 20:04:00 No Notes: (Same As: Catapres) [facility] adri [facility] 2016-04-16 20:03:00 No Notes: (Same as: Norvasc) [facility] Sodium Chloride 0.9% IV 2016-04-16 20:00:00 No IV, 2000 ml/hr, ONCALL, Start date: 04/16/16 15:00:00 CDT, Duration: 1, 2,[address] [facility] sodium citrate 2016-04-16 20:00:00 No Notes: Same as Anticoagulant Citrate Dextrose Soln LONGTERM (ACD) Formula A Nasra Trinidad calcium gluconate 2,400 mg + potassium c hloride 12 mEq + magnesium sulfate 6 mEq + sodium chloride 2016-04-16 20:00:00 No Route: IV, Drug form: INJ, ONCALL, Start date: 04/16/16 15:00:00 CDT, Duration: 30 day, Stop date: 05/16/16 13:59:00 REPRODUCTIVE ENDOCRINOLOGIST Nasra Trinidad Calcium Gluconate 2016-04-16 14:54:00 No Notes: WASTE: F/P - Sink; E - Municipal Trash Bin Nasra Trinidad Famotidine 20 MG Oral Tablet 2016-04-16 14:00:00 No Notes: (Same as: Pepcid) Nasra Trinidad Nicotine 2016-04-16 14:00:00 No Notes: (Same as: Habitrol) "Remove old patch before application of new patch" WASTE: F/P - P Waste Black; E - P Waste Black Nasra Trinidad Aspirin 2016-04-16 14:00:00 No Notes: Do not crush or chew. (Same As: Ecotrin) Nasra Trinidad Amlodipine 2016-04-16 14:00:00 No Notes: (S shon as: Norvasc) Nasra Trinidad Aspirin 325 MG Oral Tablet 2016-04-16 14:00:00 No Notes: Take with food. Nasra Trinidad Enoxaparin 2016-04-16 14:00:00 No Notes: (S shon as: Lovenox) Nasra Trinidad Morphine 2016-04-16 13:11:00 No Not es: (Same as:MORPhine Sulfate) Nasra Trinidad Tylenol 2016-04-16 13:11:00 No Notes: Infuse over 15 minutes Do not exceed 4gm/day of acetaminophen MEDICATION WASTE Product Size: 1000 mg Product Wasted: ___ mg Nasra meier hydroxyurea 2016-04-16 13:00:00 No Notes: (Same as: Hydrea) Chemotherapy agent/Handle with caution "Do Not Crush" WASTE: F/P - Black; E - Yellow [facility] hydroxyurea 2016-04-16 12:05:00 No 1,607.5 mg, Route: PO, Drug form: CAP, Daily, Dosing Weight 64.3, kg, Priority: STAT, Start date: 04/16/16 7:05:00 CDT, Duration: 30 day, Stop date: 05/15/16 9:00:00 REPRODUCTIVE ENDOCRINOLOGIST [facility] sodium chloride 0.9% 1000 ml INJ 1,000 mL 2016-04-16 10:22:00 No 1,000 mL, Rate: 75 ml/hr, Infuse over: 13.3 hr, Route: IV, Dosing Weight 64.3 kg, Total Volume: 1,000, Start date: 04/16/16 5:22:00 CDT, Stop date: 05/16/16 5:21:00 REPRODUCTIVE ENDOCRINOLOGIST [facility] Heparin 80 unit/kg Bolus (Heparin Dosing Weight) 2016-04-16 10:0 2:00 No Route: IVP, PRN, 5,100 unit, 5.1 mL, Drug form: INJ, PRN, Heparin Protocol, Start date: 04/16/16 5:02:00 CDT Stop date: 05/16/16 4:01:00 REPRODUCTIVE ENDOCRINOLOGIST, 30 day [facility] heparin additive 25,000 unit [18 unit/kg /hr] + Premix Diluent Dextrose 5% 500 mL 2016-04-16 10:02:00 No 500 mL, Rate: 23.15 ml/hr, Infuse over: 21.6 hr, Route: IV, Dosing Weight 64.3 kg, Total Volume: 500 mL, Start date: 04/16/16 5:02:00 CDT, Duration: 30 day, Stop date: 05/16/16 5:01:00 REPRODUCTIVE ENDOCRINOLOGIST [facility] Heparin 40 unit/kg Bolus (Heparin Dosing Weight) 2016-04-16 10:0 2:00 No Route: IVP, PRN, 2,600 unit, 2.6 mL, Drug form: INJ, PRN, Heparin Protocol, Start date: 04/16/16 5:02:00 CDT Stop date: 05/16/16 4:01:00 REPRODUCTIVE ENDOCRINOLOGIST, 30 day [facility] Ondansetron 2016-04-16 09:22:00 No Notes: (Same as: Nitin) MEDICATION WASTE Product Size: 4 mg Product Wasted: ___ mg [facility] Acetaminophen 325 MG / Hydrocodone Bitartrate 5 MG Oral Tabl et 2016-04-16 09:22:00 No Notes: (Sa me as: Jerome 325/5) Do not exceed 4gm/day of acetaminophen. Nasra Trinidad Docusate 2016-04-16 09:22:00 No Notes: (Same as: Colace) (Do Not Crush) Nasra Trinidad Acetaminophen 2016-04-16 09:22:00 No Notes: Do not exceed 4 gm/day. (Same as: Tylenol) Nasra Trinidad Aspirin 325 MG Oral Tablet 2016-03-13 00:35:00 Yes 325 mg = 1 tab, PO, Daily, # 30 tab, 1 Refill(s) Landen Trinidad Valium 2016-03-13 00:32:00 No 5 mg, Route: IVP, Drug form: INJ, ONCE, Dosing Weight 63.636, kg, Priority: STAT, Start date: 03/12/16 19:32:00 CDT, Stop date: 03/12/16 19:32:00 CDT Pa americo Trinidad Aspirin 2016-03-13 00:30:00 No 325 mg, Route: PO, Drug form: TAB, ONCE, Dosing Weight 63.636, kg, Priority: STAT, Start date: 03/12/16 19:30:00 CDT, Stop date: 03/12/16 19:30:00 CDT Pa americo Trinidad Ketorolac 2016-03-12 23:52:00 No 4 days MEDICATION WASTE Product Size: 30 mg Product Wasted: ___ mg Nasra Trinidad Ketorolac 2016-03-12 23:51:00 No 30 mg, Route: IM, Drug form: INJ, ONCE, Dosing Weight 63.636, kg, Priority: STAT, Start date: 03/12/16 18:51:00 CDT, Stop date: 03/12/16 18:51:00 CDT Pa americo Trinidad Zofran 2016-03-12 23:26:00 No 4 mg, Route: IVP, Drug form: INJ, ONCE, Dosing Weight 63.636, kg, Priority: STAT, Start date: 03/12/16 18:26:00 CDT, Stop date: 03/12/16 18:26:00 CDT Pa americo Trinidad Sodium Chloride 0.154 MEQ/ML Injectable Solution 2016-03-12 23:2 6:00 No 1,000 mL, 1,000 ml/hr, Infus e Over: 1 hr, Route: IV, ONCE, Priority: STAT, Dosing Weight 63.636 kg, Start date: 03/12/16 18:26:00 CDT, Duration: 1 doses or times, Stop date: 03/12/16 18:26:00 CDT [facility] Sodium Chloride 0.154 MEQ/ML Injectable Solution 2016-03-12 23:1 6:00 No 1,000 mL, 1,000 ml/hr, Infus e Over: 1 hr, Route: IV, ONCE, Priority: STAT, Dosing Weight 63.636 kg, Start date: 03/12/16 18:16:00 CDT, Duration: 1 doses or times, Stop date: 03/12/16 18:16:[address] [facility] Saline Flush 0.9% 2016-03-12 19:45:00 No Notes: (Same as: BD Posiflush) [facility] Fluconazole 2016-03-07 15:00:00 No Notes: ( Same as: Diflucan) [facility] tramadol hydrochloride 50 MG Oral Tablet 2016-03-07 14:28:00 Yes 100 mg = 2 tab, PO, Q8H, PRN Pain Score 6-10, X 5 day, # 30 tab, 0 Refill(s) [facility] levofloxacin 250 mg oral tablet 2016-03-07 14:28:00 Yes 500 mg = 2 tab, PO, [id number], X 10 day, # 20 tab, 0 Refill(s) [facility] fluconazole 100 mg oral tablet 2016-03-07 14:28:00 Yes 200 mg = 2 tab, PO, [id number], X 7 day, # 14 tab, 0 Refill(s) [facility] cyclobenzaprine 10 mg oral tablet 2016-03-07 14:28:00 Yes 10 mg = 1 tab, PO, TID, PRN Spasm, X 10 day, # 30 tab, 0 Refill(s) [facility] Aspirin 81 MG Enteric Coated Tablet 2016-03-07 14:28:00 Yes 81 mg = 1 tab, PO, Daily, # 30 tab, 2 Refill(s) [facility] atorvastatin 20 mg oral tablet 2016-03-07 14:28:00 Yes 20 mg = 1 tab, PO, Bedtime, # 30 tab, 2 Refill(s) [facility] Flexeril 2016-03-06 22:38:00 No Notes: (David e As: Flexeril) Nasra Trinidad Levaquin 2016-03-05 14:00:00 No Notes: Do not give w/antacids, dairy pdt & minerals Take 1 hr before or 2 hr after dairy pdt (Same as:Levaquin) Nasra Stevenann Acetaminophen 300 MG / Codeine Phosphate 30 MG Oral Tablet [Tylenol with Codeine #3] 2016-03-03 18:15:00 No Notes: Do not exceed 4gm/day of acetaminophen. (Same as: Tylenol with Codeine # 3) Nasra Stevenann Miralax 2016-03-03 14:00:00 No Notes: Dissolve in 8 oz of water or juice. (Same as: Miralax) Nasra Painter nn Sodium Chloride 0.154 MEQ/ML Injectable Solution 2016-03-02 16:0 0:00 No 1,000 mL, Rate: 75 ml/hr, In fuse over: 13.3 hr, Route: IV, Dosing Weight 68.182 kg, Total Volume: 1,000, Start date: 03/02/16 11:00:00 CDT, Duration: 30 day, Stop date: 04/01/16 10:59:00 CDT [facility] Amos Fluconazole 2016-03-02 15:00:00 No Notes: ( Same as: Diflucan) Nasra Stevenann Saline Flush 0.9% 2016-03-02 05:00:00 No Notes: preservative free. [facility] Saline Flush 0.9% 2016-03-01 21:09:00 No 10 mL, Route: IVP, Drug Form: INJ, Dosing Weight 68.182, kg, PRN, PRN Line Flush, Start date: 03/01/16 16:09:00 CDT, Duration: 30 day, Stop date: 03/31/16 16:08:00 CDT [facility] Fluconazole 2016-03-01 16:00:00 No Notes: ( Same as: Diflucan) Nasra Stevenann tramadol hydrochloride 50 MG Oral Tablet 2016-02-29 17:47:00 No Notes: Not to exceed 400mg/day. (Same As: Ultram) Nasra Amos Zosyn 2016-02-29 14:00:00 No Notes: (Same as: Zosyn) Dosing based on Piperacillin component MEDICATION WASTE Product Size: 3375 mg Product Wasted: ___ mg [facility] Ceftriaxone 2016-02-29 04:00:00 No Notes: (Same As: Rocephin). Use with 100 mL NS and infuse over 30 min MEDICATION WASTE Product Size: 1000 mg Product Wasted: ___ mg [facility] Fluconazole 2016-02-28 16:00:00 No Notes: (Same as: Diflucan) Do not refrigerate [facility] Floranex 2016-02-28 15:57:00 No Notes: (Same as Floranex) Do NOT refrigerate [facility] gabapentin 2016-02-27 21:00:00 No Notes: (S shon as: Neurontin) [facility] NS + KCL 20mEq/L 1000ml (Premix) 1,000 mL 2016-02-27 14:14:00 No Notes: PREMIX IV - Do Not Alter WASTE: F/P - Sink; E - Municipal Trash [facility] Magnesium Sulfate 2016-02-26 22:51:00 No Notes: WASTE: F/P - Sink; E - Municipal Trash Bin [facility] Aspirin 2016-02-26 14:22:00 No Notes: Do not crush or chew. (Same As: Ecotrin) [facility] remove patch 2016-02-26 06:10:00 No Notes: Remove old patch before application of new patch. WASTE: F/P - P Waste Black; E - P Waste Black [facility] Tylenol 2016-02-26 01:23:00 No Notes: Do not exceed 4 gm/day. (Same as: Tylenol) [facility] Vancomycin 2016-02-25 18:30:00 No 2001 mg: infuse over 2.5 hours MEDICATION WASTE Product Size: 1000 mg Product Wasted: ___ mg [facility] Rocephin 2016-02-25 18:00:00 No Notes: (Same As: Rocephin). Use with 100 mL NS and infuse over 30 min MEDICATION WASTE Product Size: 2000 mg Product Wasted: ___ mg [facility] Sodium Chloride 0.9% IV 2016-02-25 14:29:00 No 25 mL, Route: IVP, Start date: 02/25/16 9:29:00 CDT, Duration: 30 day, Stop date: 03/26/16 9:28:00 CDT, PRN Line Flush [facility] Famotidine 20 MG Oral Tablet 2016-02-25 14:29:00 No Notes: (Same as: Pepcid) [facility] BD Normal Saline Flush 2016-02-25 14:29:00 No Notes: (Same as: BD Posiflush) [facility] Amlodipine 2016-02-25 14:29:00 No Notes: (S shon as: Norvasc) [facility] sodium chloride 0.9% 1000 ml INJ 1,000 mL 2016-02-25 14:24:00 No 1,000 mL, Rate: 75 ml/hr, Infuse over: 13.3 hr, Route: IV, Dosing Weight 68.182 kg, Total Volume: 1,000, Start date: 02/25/16 9:24:00 CDT, Duration: 30 day, Stop date: 03/26/16 9:23:00 CDT [facility] Aspirin 2016-02-25 07:48:00 No Notes: Take with food. [facility] Doxycycline 2016-02-25 07:45:00 No Notes: (Same as: Vibramycin) No milk/antacids/iron. [facility] Nicotine 2016-02-25 06:19:00 No 14 mg, Route: TOP, Drug form: ERFILM, ONCE, Dosing Weight 68.182, kg, Start date: 02/25/16 1:19:00 CDT, Stop date: 02/25/16 1:19:[address] [facility] adri Nicotine 2016-02-25 06:07:00 No Notes: (Same as: Habitrol) "Remove old patch before application of new patch" WASTE: F/P - P Waste Black; E - P Waste Black [facility] Rocephin 2016-02-25 05:14:00 No Notes: (Same As: Rocephin). Use with 100 mL NS and infuse over 30 min MEDICATION WASTE Product Size: 2000 mg Product Wasted: ___ mg [facility] Vancomycin 2016-02-25 04:53:00 No 2001 mg: infuse over 2.5 hours MEDICATION WASTE Product Size: 1000 mg Product Wasted: ___ mg Nasra Trinidad Saline Flush 0.9% 2016-02-24 23:54:00 No Notes: (Same as: BD Posiflush) Nasra Trinidad ciprofloxacin 500 mg oral tablet 2016-02-20 16:16:00 Yes 500 mg = 1 tab, PO, Q12H, X 10 day, # 20 tab, 0 Refill(s) Nasra Trinidad cephalexin 500 mg oral capsule 2016-02-20 16:04:00 No 500 mg = 1 cap, PO, QID, X 10 day, # 40 cap, 0 Refill(s) Nasra Trinidad Famotidine 20 MG Oral Tablet 2016-02-20 16:04:00 Yes 20 mg = 1 tab, PO, BID, # 120 tab, 0 Refill(s) Nasra Trinidad amLODIPine 5 mg oral tablet 2016-02-20 16:04:00 Yes 5 mg = 1 tab, PO, Daily, # 21 tab, 0 Refill(s) Memmarge l Amos Amlodipine 2016-02-20 14:00:00 No Notes: (S shon as: Norvasc) [facility] Magnesium Oxide 2016-02-19 22:00:00 No Notes: (Same as: Mag-Ox 400) Magnesium oxide [id number] elemental magnesium Dose=____mg magnesium oxide (___mg elemental magnesium) [facility] renea Famotidine 2016-02-19 22:00:00 No Notes: (S shon as: Pepcid) [facility] Doxycycline 2016-02-19 19:00:00 No Notes: (Same as: Vibramycin) "Do Not Crush" [facility] potassium chloride 2016-02-19 18:13:00 No Notes: (Same as: K-Dur 20) "Do Not Crush" With food and full glass of water [facility] Zofran 2016-02-19 04:01:00 No Notes: (Same as: Zofran) MEDICATION WASTE Product Size: 4 mg Product Wasted: ___ mg [facility] Keflex 2016-02-18 22:00:00 No Notes: Take on empty stomach. (Same As: Keflex) [facility] Tylenol 2016-02-18 03:08:00 No Notes: Do not exceed 4 gm/day. (Same as: Tylenol) [facility] Doxycycline 2016-02-17 21:34:00 No 100 mg, PO, Q12H, 0 Refill(s) [facility] tramadol hydrochloride 50 MG Oral Tablet 2016-02-17 21:34:00 No 50 mg = 1 tab, PO, Q8H, PRN Pain, # 60 tab, 0 Refill(s) [facility] carbamide peroxide otic 6.5% solution 2016-02-17 14:00:00 N o Notes: (carbamide peroxide 6.5% 15 ml otic SOLN) (Same As: Debrox) [facility] Ceftriaxone 2016-02-17 14:00:00 No Notes: (Same As: Rocephin). Use with 100 mL NS and infuse over 30 min MEDICATION WASTE Product Size: 1000 mg Product Wasted: ___ mg [facility] Saline Flush 0.9% 2016-02-17 13:19:00 No Notes: Same as: BD Posiflush Sterile [facility] Lactated Ringers Injection IV 1000 mL 2016-02-17 13:19:00 N o 1,000 mL, Rate: 125 ml/hr, Infuse over: 8 hr, Route: IV, Dosing Weight 70.455 kg, Total Volume: 1,000, Start date: 02/17/16 8:19:00 CDT, Duration: 30 day, Stop date: 03/18/16 8:18:[address] [facility] adri Sodium Chloride 0.154 MEQ/ML Injectable Solution 2016-02-17 13:1 3:00 No 1,000 mL, Rate: 100 ml/hr, I nfuse over: 10.1 hr, Route: IV, Dosing Weight 85.455 kg, Total Volume: 1,011.2, Start date: 02/17/16 8:13:00 CDT, Duration: 3 day, Stop date: 02/20/16 8:12:00 CDT [facility] orial [place] Sodium Chloride 0.154 MEQ/ML Injectable Solution 2016-02-17 13:1 0:00 No 250 mL, Rate: 10 ml/hr, Infu se over: 25.3 hr, Route: IV, Dosing Weight 85.455 kg, Total Volume: 252.5, Start date: 02/17/16 8:10:00 CDT, Duration: 30 day, Stop date: 03/18/16 8:09:00 CDT, Infuse at 50 mcg/hr. Final concentration = 50 mcg/[address] [facility] Octreotide 2016-02-17 13:10:00 No Notes: (Same As: SandoSTATIN). Refrigerate. MEDICATION WASTE Product Size: 50 microgram Product Wasted: ___ microgram [facility] Ondansetron 2016-02-17 13:10:00 No Notes: (Same as: Zofran) MEDICATION WASTE Product Size: 4 mg Product Wasted: ___ mg [facility] pantoprazole 2016-02-17 13:10:00 No Notes: For IV push reconstitute with 10 ml 0.9% sodium chloride and push over 2 minutes. (Same as: Protonix) [facility] Saline Flush 0.9% 2016-02-17 13:10:00 No Notes: Same as: BD Posiflush Sterile [facility] Doxycycline 2016-02-17 13:09:00 No Notes: ( Same as: Vibramycin) [facility] Omnipaque 300 2016-02-17 11:00:00 No Notes: (Same as:Omnipaque 300). WASTE: F/P - Black; E - Municipal Trash Bin [facility] Protonix 2016-02-17 07:50:00 No Notes: For IV push reconstitute with 10 ml 0.9% sodium chloride and push over 2 minutes. (Same as: Protonix) [facility] GI cocktail 2016-02-17 07:50:00 No Notes: G.I. Cocktail = antacid with simethicone 22.5 mL - lidocaine viscous 7.5 mL [facility] Ondansetron 2016-02-14 06:13:00 No Notes: (Same as: Zofran) MEDICATION WASTE Product Size: 4 mg Product Wasted: ___ mg [facility] Morphine 2016-02-14 06:13:00 No Not es: (Same as:MORPhine Sulfate) [facility] Sodium Chloride 0.154 MEQ/ML Injectable Solution 2016-02-14 06:1 3:00 No 1,000 mL, 2,000 ml/hr, Infus e Over: 30 minutes, Route: IV, 1,000, Drug form: INJ, ONCE, Priority: STAT, Dosing Weight 90.909 kg, Start date: 02/14/16 1:13:00 CDT, Duration: 1 doses or times, Stop date: 02/14/16 1:13:00 CDT [facility] Saline Flush 0.9% 2016-02-14 06:13:00 No Notes: (Same as: BD Posiflush) Nasra Amos cephalexin 500 mg oral tablet 2014-05-10 02:29:00 Yes 500 mg = 1 tab, PO, QID, # 28 tab, 0 Refill(s) Niranjan rebeccayaneth Trinidad Acetaminophen 300 MG / Codeine Phosphate 30 MG Oral Tablet [Tylenol with Codeine #3] 2014-05-10 02:28:00 Yes 1 - 2 tab, PO, Q4H, Pain, # 20 tab, 0 Refill(s) Nasra Stevenann Mupirocin 0.02 MG/MG Topical Ointment [Bactroban] 2014-05-10 02:28:00 Yes 1 appl, TOP, TID, # 22 gm, 0 Refill(s) [facility] Mupirocin 0.02 MG/MG Topical Ointment [Bactroban] 2014-05-10 02:25:00 No 1 appl, Route: TOP, ONCE, Drug form: OINT, Priority: Stat, Start date: 05/09/14 20:25:00, Stop date: 05/09/14 20:25:00 Nasra Amos Ketorolac 2014-05-10 00:58:[address] [facility] Saline Flush 0.9% 2014-05-10 00:58:00 No Notes: Same as: BD Posiflush Sterile [facility] Acetaminophen 325 MG / Hydrocodone Bitartrate 5 MG Oral Tabl et [Jerome 5/325] 2014-05-10 00:58:00 No Notes: (Same as: Jerome 325/5) Do not exceed 4gm/day of acetaminophen. Nasra casper Diphenhydramine Hydrochloride 25 MG Oral Capsule [Benadryl] 2014-04-19 17:15:00 Yes 25 mg = 1 cap, PO, Q6H, Itching, # 30 cap, 0 Refill(s) Nasra [place] tramadol hydrochloride 50 MG Oral Tablet 2014-04-19 17:15:00 Yes 50 mg = 1 tab, PO, Q6H, Pain, # 40 tab, 0 Refill(s) [facility] Sulfamethoxazole 800 MG / Trimethoprim 160 MG Oral Tablet [B actrim] 2014-04-19 17:14:00 Yes 1 tab, PO, BID, # 20 tab, 0 Refill(s) Nasra Amos Cephalexin 500 MG Oral Capsule [Keflex] 2014-04-19 17:13:00 Yes 500 mg = 1 cap, PO, QID, # 40 cap, 0 Refill(s) [facility] Acetaminophen 325 MG / Hydrocodone Bitartrate 5 MG Oral Tabl et [Jerome 5/325] 2014-02-14 20:05:00 No 1 tab, Route: PO, Drug Form: TAB, Dosing Weight 90.909, kg, ONCE, STAT, Start date: 02/14/14 15:05:00, Stop date: 02/14/14 15:05:00 Nasra [place] Aspirin / Calcium Carbonate 2014-02-14 19:21:00 No Notes: Take with food. [facility] Nitroglycerin 2014-02-14 19:21:00 No Notes: (Same as:Nitroquick, Nitrostat) "Do Not Crush" Sublingual tablet [facility] Saline Flush 0.9% 2014-02-14 19:21:00 No Notes: (Same as: BD Posiflush) [facility] Alprazolam Alprazolam Yes .5 Daily as needed fo r Anxiety [facility] Calcium Acetate Calcium Acetate Yes 2 Three Times Daily With Meals [facility] Calcium Carbonate Calcium Carbonate Yes 12 50 Three Times Daily With Meals [facility] Carvedilol Carvedilol Yes 25 Twice Daily With M eals [facility] Clopidogrel Bisulfate (Clopidogrel) 75 Mg TABLET Clopi dogrel Bisulfate (Clopidogrel) 75 Mg TABLET Yes 75 Daily [facility] Famotidine Famotidine Yes 20 Bedtime [facility] Lactulose Lactulose Yes 15 Three Times A Day [facility] Polyethylene Glycol 3350 Polyethylene Glycol 3350 Yes 17 Twice A Day as needed for Constipation [facility] Rifaximin (Xifaxan) 550 Mg TABLET Rifaximin (Xifaxan) 550 Mg TABLET Yes 550 Twice A Day [facility] Risperidone Risperidone Yes .5 Twice A Day [facility] Tramadol Hcl (Ultram) 50 Mg TABLET Tramadol Hcl (Ultram) 50 Mg TABLET Yes 100 Every 6 Hours as needed for Moderate Pain (4-6) [facility] Hydralazine Hcl Hydralazine Hcl 2020-02-01 00:00:00 No 10 Every 8 Hours [facility] Nifedipine (Nifedipine Er) 60 Mg TAB.ER.24 Nifedipine (Nifedipine Er) 60 Mg TAB.ER.24 2020-02-01 00:00:00 No 60 Daily [facility] Prednisone Prednisone 2020-02-01 00:00:00 No 20 Twi ce A Day [facility] Vital Signs Vital Name Observation Time Observation Value Comments Source Body Temperature 2020-02-01 11:09:00 97.7 [degF] [facility] BMI (Body Mass Index) 2020-02-01 09:54:00 28.7 kg/m2 [facility] Weight 2020-01-24 15:03:00 200 [lb_av] [facility] Systolic blood pressure 2019-11-24 17:50:00 117 mm[Hg] [place] [facility] Diastolic blood pressure 2019-11-24 17:50:00 56 mm[Hg] [place] [facility] Heart rate 2019-11-24 17:50:00 81 [facility] temperature 2019-11-24 17:45:00 35.78 [place] [facility] Respiratory rate 2019-11-24 11:49:02 18 /min [place] [facility] Oxygen saturation in Arterial blood by Pulse oximetry 11-23 11:49:02 100 /min [place] [facility] Body weight 2019-11-23 03:33:00 86.8 kg [place] [facility] BMI 2019-11-23 03:33:00 27.46 kg/m2 [place] [facility] Body height 2019-11-22 18:30:00 177.8 cm [facility] Heart Rate 2017-02-19 04:25:00 [facility] Respitory Rate 2017-02-19 04:25:00 [facility] Systolic (mm Hg) 2017-02-19 04:25:00 [facility] Diastolic (mm Hg) 2017-02-19 04:25:00 [facility] Respitory Rate 2017-02-19 03:42:00 [facility] Heart Rate 2017-02-19 03:42:00 [facility] Systolic (mm Hg) 2017-02-19 03:42:00 [facility] Diastolic (mm Hg) 2017-02-19 03:42:00 [facility] Systolic (mm Hg) 2017-02-19 02:43:00 [facility] Diastolic (mm Hg) 2017-02-19 02:43:00 [facility] Heart Rate 2017-02-19 02:43:00 [facility] Respitory Rate 2017-02-19 02:43:00 [facility] Height 2017-02-18 23:18:00 175.26 cm [facility] Weight 2017-02-18 23:18:00 [facility] Temperature Oral (F) 2017-02-18 23:18:00 97.9 F [facility] BMI Calculated 2017-02-18 23:18:00 [facility] Heart Rate 2016-10-04 02:04:00 [facility] Respitory Rate 2016-10-04 02:04:00 [facility] Systolic (mm Hg) 2016-10-04 02:04:00 [facility] Diastolic (mm Hg) 2016-10-04 02:04:00 [facility] Systolic (mm Hg) 2016-10-03 23:58:00 [facility] Diastolic (mm Hg) 2016-10-03 23:58:00 [facility] Heart Rate 2016-10-03 23:58:00 [facility] Respitory Rate 2016-10-03 23:58:00 [facility] Weight 2016-10-03 21:39:00 [facility] BMI Calculated 2016-10-03 21:39:00 [facility] Height 2016-10-03 21:39:00 175.26 cm [facility] Heart Rate 2016-10-03 21:39:00 [facility] Respitory Rate 2016-10-03 21:39:00 [facility] Temperature Oral (F) 2016-10-03 21:39:00 98.6 F [facility] Systolic (mm Hg) 2016-10-03 21:39:00 [facility] Diastolic (mm Hg) 2016-10-03 21:39:00 [facility] Systolic (mm Hg) 2016-09-27 02:00:00 [facility] Diastolic (mm Hg) 2016-09-27 02:00:00 [facility] Heart Rate 2016-09-27 02:00:00 [facility] Respitory Rate 2016-09-27 02:00:00 [facility] Temperature Oral (F) 2016-09-27 02:00:00 98.6 F [facility] Systolic (mm Hg) 2016-09-27 01:11:00 [facility] Diastolic (mm Hg) 2016-09-27 01:11:00 [facility] Heart Rate 2016-09-27 01:11:00 [facility] Respitory Rate 2016-09-27 00:00:00 [facility] Systolic (mm Hg) 2016-09-27 00:00:00 [facility] Diastolic (mm Hg) 2016-09-27 00:00:00 [facility] Temperature Oral (F) 2016-09-27 00:00:00 97.8 F [facility] Heart Rate 2016-09-27 00:00:00 [facility] Temperature Oral (F) 2016-09-26 21:52:00 97.6 F [facility] Respitory Rate 2016-09-26 21:52:00 [facility] Weight 2016-09-26 21:52:00 [facility] Respitory Rate 2016-08-20 14:30:00 [facility] Systolic (mm Hg) 2016-08-20 14:30:00 [facility] Diastolic (mm Hg) 2016-08-20 14:30:00 [facility] Temperature Oral (F) 2016-08-20 14:30:00 98.3 F [facility] Heart Rate 2016-08-20 14:30:00 [facility] Respitory Rate 2016-08-20 06:00:00 [facility] Systolic (mm Hg) 2016-08-20 06:00:00 [facility] Diastolic (mm Hg) 2016-08-20 06:00:00 [facility] Temperature Oral (F) 2016-08-20 06:00:00 98.3 F [facility] Heart Rate 2016-08-20 06:00:00 [facility] Systolic (mm Hg) 2016-08-20 02:00:00 [facility] Diastolic (mm Hg) 2016-08-20 02:00:00 [facility] Respitory Rate 2016-08-20 02:00:00 [facility] Heart Rate 2016-08-20 02:00:00 [facility] Temperature Oral (F) 2016-08-20 02:00:00 98.2 F [facility] BMI Calculated 2016-08-12 05:48:00 [facility] Height 2016-08-12 05:48:00 175.26 cm [facility] Weight 2016-08-12 05:48:00 [facility] BMI Calculated 2016-08-12 02:00:00 [facility] Weight 2016-08-12 02:00:00 [facility] Height 2016-08-12 02:00:00 175.26 cm [facility] Systolic (mm Hg) 2016-06-27 07:23:00 [facility] Diastolic (mm Hg) 2016-06-27 07:23:00 [facility] Heart Rate 2016-06-27 07:23:00 [facility] Respitory Rate 2016-06-27 07:23:00 [facility] Respitory Rate 2016-06-27 06:38:00 [facility] Heart Rate 2016-06-27 06:38:00 [facility] Systolic (mm Hg) 2016-06-27 06:38:00 [facility] Diastolic (mm Hg) 2016-06-27 06:38:00 [facility] Weight 2016-06-27 03:35:00 [facility] BMI Calculated 2016-06-27 03:35:00 [facility] Height 2016-06-27 03:35:00 177.8 cm [facility] Respitory Rate 2016-06-27 03:35:00 [facility] Temperature Oral (F) 2016-06-27 03:35:00 98.1 F [facility] Systolic (mm Hg) 2016-06-27 03:35:00 [facility] Diastolic (mm Hg) 2016-06-27 03:35:00 [facility] Heart Rate 2016-06-27 03:35:00 [facility] Heart Rate 2016-06-18 02:00:00 [facility] Respitory Rate 2016-06-18 02:00:00 [facility] Systolic (mm Hg) 2016-06-18 02:00:00 [facility] Diastolic (mm Hg) 2016-06-18 02:00:00 [facility] Systolic (mm Hg) 2016-06-17 18:00:00 [facility] Diastolic (mm Hg) 2016-06-17 18:00:00 [facility] Heart Rate 2016-06-17 18:00:00 [facility] Respitory Rate 2016-06-17 18:00:00 [facility] Systolic (mm Hg) 2016-06-17 14:00:00 [facility] Diastolic (mm Hg) 2016-06-17 14:00:00 [facility] Heart Rate 2016-06-17 14:00:00 [facility] Respitory Rate 2016-06-17 14:00:00 [facility] Temperature Oral (F) 2016-06-17 10:00:00 97.6 F [facility] Temperature Oral (F) 2016-06-17 02:00:00 98.2 F [facility] Temperature Oral (F) 2016-06-16 22:00:00 97.6 F [facility] Weight 2016-06-15 19:56:00 [facility] Height 2016-05-27 22:05:00 175.26 cm [facility] Weight 2016-05-27 22:05:00 [facility] BMI Calculated 2016-05-27 22:05:00 [facility] Respitory Rate 2016-05-27 18:02:00 [facility] Heart Rate 2016-05-27 18:02:00 [facility] Temperature Oral (F) 2016-05-27 18:02:00 97.9 F [facility] Systolic (mm Hg) 2016-05-27 18:02:00 [facility] Diastolic (mm Hg) 2016-05-27 18:02:00 [facility] Heart Rate 2016-05-27 14:05:00 [facility] Temperature Oral (F) 2016-05-27 14:05:00 98.2 F [facility] Respitory Rate 2016-05-27 14:05:00 [facility] Systolic (mm Hg) 2016-05-27 14:05:00 [facility] Diastolic (mm Hg) 2016-05-27 14:05:00 [facility] Systolic (mm Hg) 2016-05-27 06:00:00 [facility] Diastolic (mm Hg) 2016-05-27 06:00:00 [facility] Heart Rate 2016-05-27 06:00:00 [facility] Temperature Oral (F) 2016-05-27 06:00:00 98.5 F [facility] Respitory Rate 2016-05-26 22:39:00 [facility] Weight 2016-05-25 13:00:00 [facility] Weight 2016-05-19 05:25:00 [facility] BMI Calculated 2016-05-19 05:25:00 [facility] Height 2016-05-19 05:25:00 172.72 cm [facility] Height 2016-05-19 02:07:00 187.96 cm [facility] BMI Calculated 2016-05-19 02:07:00 [facility] Weight 2016-05-19 02:07:00 [facility] Systolic (mm Hg) 2016-04-28 13:00:00 [facility] Diastolic (mm Hg) 2016-04-28 13:00:00 [facility] Respitory Rate 2016-04-28 13:00:00 [facility] Temperature Oral (F) 2016-04-28 13:00:00 97.8 F [facility] Heart Rate 2016-04-28 13:00:00 [facility] Heart Rate 2016-04-28 05:00:00 [facility] Respitory Rate 2016-04-28 05:00:00 [facility] Temperature Oral (F) 2016-04-28 05:00:00 99.0 F [facility] Systolic (mm Hg) 2016-04-28 05:00:00 [facility] Diastolic (mm Hg) 2016-04-28 05:00:00 [facility] Temperature Oral (F) 2016-04-28 01:00:00 98.7 F [facility] Systolic (mm Hg) 2016-04-28 01:00:00 [facility] Diastolic (mm Hg) 2016-04-28 01:00:00 [facility] Heart Rate 2016-04-28 01:00:00 [facility] Respitory Rate 2016-04-28 01:00:00 [facility] Weight 2016-04-27 02:02:00 [facility] BMI Calculated 2016-04-27 02:02:00 [facility] Height 2016-04-27 02:02:00 175.26 cm [facility] Weight 2016-04-26 21:19:00 [facility] Heart Rate 2016-04-20 13:12:00 [facility] Systolic (mm Hg) 2016-04-20 13:12:00 [facility] Diastolic (mm Hg) 2016-04-20 13:12:00 [facility] Respitory Rate 2016-04-20 13:12:00 [facility] Temperature Oral (F) 2016-04-20 13:12:00 97.7 F [facility] Systolic (mm Hg) 2016-04-20 11:27:00 [facility] Diastolic (mm Hg) 2016-04-20 11:27:00 [facility] Heart Rate 2016-04-20 11:27:00 [facility] Heart Rate 2016-04-20 05:17:00 [facility] Respitory Rate 2016-04-20 05:17:00 [facility] Systolic (mm Hg) 2016-04-20 05:17:00 [facility] Diastolic (mm Hg) 2016-04-20 05:17:00 [facility] Temperature Oral (F) 2016-04-20 05:17:00 98.1 F [facility] Temperature Oral (F) 2016-04-20 01:25:00 97.8 F [facility] Respitory Rate 2016-04-20 01:25:00 [facility] Weight 2016-04-17 07:00:00 [facility] Weight 2016-04-16 09:00:00 [facility] BMI Calculated 2016-04-16 09:00:00 [facility] Height 2016-04-16 09:00:00 175.26 cm [facility] Temperature Oral (F) 2016-03-13 01:15:00 98.6 F [facility] Heart Rate 2016-03-13 01:15:00 [facility] Systolic (mm Hg) 2016-03-13 01:15:00 [facility] Diastolic (mm Hg) 2016-03-13 01:15:00 [facility] Respitory Rate 2016-03-13 01:15:00 [facility] Systolic (mm Hg) 2016-03-12 19:22:00 [facility] Diastolic (mm Hg) 2016-03-12 19:22:00 [facility] Weight 2016-03-12 19:22:00 [facility] Temperature Oral (F) 2016-03-12 19:22:00 97.6 F [facility] Heart Rate 2016-03-12 19:22:00 [facility] BMI Calculated 2016-03-12 19:22:00 [facility] Height 2016-03-12 19:22:00 175.26 cm [facility] Respitory Rate 2016-03-12 19:22:00 [facility] Systolic (mm Hg) 2016-03-07 13:00:00 [facility] Diastolic (mm Hg) 2016-03-07 13:00:00 [facility] Respitory Rate 2016-03-07 13:00:00 [facility] Heart Rate 2016-03-07 13:00:00 [facility] Temperature Oral (F) 2016-03-07 13:00:00 98.5 F [facility] Heart Rate 2016-03-07 09:00:00 [facility] Temperature Oral (F) 2016-03-07 09:00:00 98.1 F [facility] Respitory Rate 2016-03-07 09:00:00 [facility] Systolic (mm Hg) 2016-03-07 09:00:00 [facility] Diastolic (mm Hg) 2016-03-07 09:00:00 [facility] Systolic (mm Hg) 2016-03-07 05:00:00 [facility] Diastolic (mm Hg) 2016-03-07 05:00:00 [facility] Respitory Rate 2016-03-07 05:00:00 [facility] Heart Rate 2016-03-07 05:00:00 [facility] Temperature Oral (F) 2016-03-07 05:00:00 98.1 F [facility] BMI Calculated 2016-02-24 23:46:00 [facility] Weight 2016-02-24 23:46:00 [facility] Height 2016-02-24 23:46:00 170.18 cm [facility] Heart Rate 2016-02-20 16:44:00 [facility] Temperature Oral (F) 2016-02-20 16:44:00 98.4 F [facility] Systolic (mm Hg) 2016-02-20 16:44:00 [facility] Diastolic (mm Hg) 2016-02-20 16:44:00 [facility] Respitory Rate 2016-02-20 16:44:00 [facility] Systolic (mm Hg) 2016-02-20 11:27:00 [facility] Diastolic (mm Hg) 2016-02-20 11:27:00 [facility] Heart Rate 2016-02-20 11:27:00 [facility] Respitory Rate 2016-02-20 11:27:00 [facility] Temperature Oral (F) 2016-02-20 11:27:00 98.2 F [facility] Heart Rate 2016-02-20 09:49:00 [facility] Temperature Oral (F) 2016-02-20 09:49:00 98.5 F [facility] Systolic (mm Hg) 2016-02-20 09:49:00 [facility] Diastolic (mm Hg) 2016-02-20 09:49:00 [facility] Respitory Rate 2016-02-20 09:49:00 [facility] Weight 2016-02-17 21:30:00 [facility] Height 2016-02-17 13:17:00 175.26 cm [facility] BMI Calculated 2016-02-17 13:17:00 [facility] Weight 2016-02-17 13:17:00 [facility] Weight 2016-02-17 06:30:00 [facility] Systolic (mm Hg) 2016-02-14 07:30:00 [facility] Diastolic (mm Hg) 2016-02-14 07:30:00 [facility] Weight 2016-02-14 04:21:00 [facility] BMI Calculated 2016-02-14 04:21:00 [facility] Respitory Rate 2016-02-14 04:21:00 [facility] Temperature Oral (F) 2016-02-14 04:21:00 98.3 F [facility] Heart Rate 2016-02-14 04:21:00 [facility] Systolic (mm Hg) 2016-02-14 04:21:00 [facility] Diastolic (mm Hg) 2016-02-14 04:21:00 [facility] Height 2016-02-14 04:21:00 175.26 cm [facility] Weight 2014-05-28 09:44:00 [facility] BMI Calculated 2014-05-28 09:44:00 [facility] Height 2014-05-28 09:44:00 175.26 cm [facility] Temperature Oral (F) 2014-05-28 09:44:00 97.0 F [facility] Diastolic (mm Hg) 2014-05-28 09:44:00 [facility] Systolic (mm Hg) 2014-05-28 09:44:00 [facility] Respitory Rate 2014-05-28 09:44:00 [facility] Heart Rate 2014-05-28 09:44:00 [facility] Temperature Oral (F) 2014-05-10 02:54:00 98.0 F [facility] Systolic (mm Hg) 2014-05-10 02:54:00 [facility] Heart Rate 2014-05-10 02:54:00 [facility] Respitory Rate 2014-05-10 02:54:00 [facility] Diastolic (mm Hg) 2014-05-10 02:54:00 [facility] Height 2014-05-10 00:21:00 175.26 cm [facility] BMI Calculated 2014-05-10 00:21:00 [facility] Weight 2014-05-10 00:21:00 [facility] Diastolic (mm Hg) 2014-05-10 00:21:00 [facility] Systolic (mm Hg) 2014-05-10 00:21:00 [facility] Temperature Oral (F) 2014-05-10 00:21:00 99.0 F [facility] Heart Rate 2014-05-10 00:21:00 [facility] Respitory Rate 2014-05-10 00:21:00 [facility] Height 2014-04-19 16:36:00 175.26 cm [facility] BMI Calculated 2014-04-19 16:36:00 [facility] Weight 2014-04-19 16:36:00 [facility] Temperature Oral (F) 2014-04-19 16:36:00 98.5 F [facility] Respitory Rate 2014-04-19 16:36:00 [facility] Diastolic (mm Hg) 2014-04-19 16:36:00 [facility] Heart Rate 2014-04-19 16:36:00 [facility] Systolic (mm Hg) 2014-04-19 16:36:00 [facility] Respitory Rate 2014-02-14 20:44:00 [facility] Systolic (mm Hg) 2014-02-14 20:44:00 [facility] Diastolic (mm Hg) 2014-02-14 20:44:00 [facility] Heart Rate 2014-02-14 20:44:00 [facility] Respitory Rate 2014-02-14 20:16:00 [facility] Heart Rate 2014-02-14 20:16:00 [facility] Systolic (mm Hg) 2014-02-14 20:16:00 [facility] Diastolic (mm Hg) 2014-02-14 20:16:00 [facility] Respitory Rate 2014-02-14 19:01:00 [facility] Heart Rate 2014-02-14 19:01:00 [facility] Diastolic (mm Hg) 2014-02-14 19:01:00 [facility] Systolic (mm Hg) 2014-02-14 19:01:00 [facility] BMI Calculated 2014-02-14 19:01:00 [facility] Weight 2014-02-14 19:01:00 [facility] Temperature Oral (F) 2014-02-14 19:01:00 98.3 F [facility] Height 2014-02-14 19:01:00 161.4 cm [facility] Procedures Procedure Date / Time Performed Performing Clinician [facility] e Computed tomography of abdomen and pelvis with contrast 00:00:00 [facility] Ultrasound guidance for vascular access 2020-01-28 00:00:00 [facility] Ultrasound, renal 2020-01-25 00:00:00 [facility] Computed tomography of brain without radiopaque contrast 2020-01 00:00:00 [facility] AMMONIA LEVEL 2019-11-24 04:35:00 Shelly Koenig [facility]ist BASIC METABOLIC PANEL 2019-11-24 04:35:00 Jose Flor [facility] MAGNESIUM LEVEL 2019-11-24 04:35:00 Jose Florto thelma [facility] PHOSPHORUS LEVEL 2019-11-24 04:35:00 Jose Flor [facility] HC COMPLETE BLD COUNT W/AUTO DIFF 2019-11-24 04:35:00 Coleen Flor ESTIMATED GFR 2019-11-24 04:35:00 [facility] HEMODIALYSIS 2019-11-24 00:06:39 Jose Flor [facility] POC GLUCOSE 2019-11-23 11:30:00 Jose Flor [facility] POC GLUCOSE 2019-11-23 07:34:00 Jose Flor [facility] BASIC METABOLIC PANEL 2019-11-23 03:05:00 Bibiana Still [facility] MAGNESIUM LEVEL 2019-11-23 03:05:00 Bibiana Still ethodist PHOSPHORUS LEVEL 2019-11-23 03:05:00 Bibiana Still HC COMPLETE BLD COUNT W/AUTO DIFF 2019-11-23 03:05:00 Yvon Still IONIZED CALCIUM 2019-11-23 03:05:00 Colin Wangist ESTIMATED GFR 2019-11-23 03:05:00 Bibiana Still [facility] HEPATITIS B SURFACE ANTIGEN 2019-11-23 00:05:00 Bibiana Still [facility] BLOOD CULTURE, AEROBIC & ANAEROBIC 2019-11-22 18:43:00 Pankaj Still [facility] AMMONIA LEVEL 2019-11-22 18:43:00 Thomas Ramos on [facility] FL CRITICAL CARE, E/M 30-74 MINUTES 2019-11-22 17:52:29 Thomas Ramos [facility] ECG ED PRELIMINARY INTERPRETATION 2019-11-22 17:52:29 Heather Ramos ECG 12-LEAD 2019-11-22 17:46:58 Thomas Ramos [facility] ARTERIAL BLOOD GAS 2019-11-22 17:18:00 Thomas Ramos [place] [facility] HEPATITIS B SURFACE AB, QUANTITATIVE 2019-11-22 17:00:00 Bibiana Still [facility] BLOOD CULTURE, AEROBIC & ANAEROBIC 2019-11-22 15:57:00 Pankaj Still [facility] VENOUS BLOOD GAS 2019-11-22 15:57:00 Thomas Ramos [facility] HEMODIALYSIS 2019-11-22 15:42:54 StillBibiana squires ethodist HC COMPLETE BLD COUNT W/AUTO DIFF 2019-11-22 15:10:00 Heather Ramos PROTHROMBIN TIME WITH INR 2019-11-22 15:10:00 Thomas Ramos [facility] PARTIAL THROMBOPLASTIN TIME (PTT) 2019-11-22 15:10:00 Heather Ramos TYPE AND SCREEN 2019-11-22 15:10:00 Thomas Ramos [facility] COMPREHENSIVE METABOLIC PANEL 2019-11-22 15:10:00 Monica Ramos [facility] PHOSPHORUS LEVEL 2019-11-22 15:10:00 Thomas Ramos [facility] MAGNESIUM LEVEL 2019-11-22 15:10:00 Thomas Ramos [facility] CREATINE KINASE, TOTAL (CPK) 2019-11-22 15:10:00 Thomas Ramos ESTIMATED GFR 2019-11-22 15:10:[address] [facility] [address] HEAD WO CONTRAST 2019-11-22 14:35:20 Thomas Raomsmackenzie [facility] XR CHEST 1 VW PORTABLE 2019-11-22 14:00:00 Thomas Ramos Hunter [facility] POC GLUCOSE 2019-11-22 13:37:00 Thomas Ramos on [facility] ACL - Repair of anterior cruciate ligament 2003-07-05 00:00:00 [facility] Planned Activity Planned Date Details Comments Source Future Scheduled Test 2020-02-03 00:00:00 INFLUENZA VACCINE [code = INFLUENZA VACCINE] [facility] Future Scheduled Test 2013 00:00:00 COLONOSCOPY SCREEN ING [code = COLONOSCOPY SCREENING] [facility] Future Scheduled Test 2013 00:00:00 SHINGLES VACCINES (#1) [code = SHINGLES VACCINES (#1)] [facility] Instructions Advance Directives [facility] Instructions Aspiration [facility] Instructions Cognitive Dysfunction [facility] Instructions Pneumonia - Bacterial [facility] Instructions Pneumonia - Viral [facility] Encounters Start Date/Time End Date/Time Encounter Type Admission Type [facility] Care Department Encounter ID Source 2020-01-24 18:33:00 2020-02-01 11:51:00 Discharged Inpatient [address] [facility] [id number] [facility] 2019-11-22 00:00:00 2019-11-24 00:00:00 Inpatient RAVEN FLOR [facility] [id number] [place] [facility] 2017-02-18 18:16:00 2017-02-18 23:27:00 Outpatient Jesús Arizmendi [facility] [id number] 2016-10-03 16:31:00 2016-10-03 22:07:00 Outpatient Jean Byrd [facility] [id number] 2016-09-26 16:45:00 2016-09-26 21:17:00 Outpatient Buster Arizmendi [facility] [id number] 2016-08-11 19:54:00 2016-08-20 13:40:00 Outpatient Marvin Solorio [facility] [id number] 2016-06-26 21:24:00 2016-06-27 01:50:00 Outpatient Lena Donaldson [facility] [id number] 2016-05-27 15:43:00 2016-06-17 18:00:00 Outpatient Jude Harvey Damaris [facility] [id number] 2016-05-18 19:58:00 2016-05-27 14:41:00 Outpatient Se misty Austini [facility] [id number] 2016-04-26 15:52:00 2016-04-28 12:56:00 Outpatient Brooks Garcia [facility] [id number] 2016-04-16 04:00:00 2016-04-20 13:50:00 Outpatient Joy Zapata [facility] [id number] 2016-03-12 14:18:00 2016-03-12 20:18:00 Outpatient Olman Trevor erazo Mendy [facility] [id number] 2016-02-24 18:39:00 2016-03-07 11:15:00 Outpatient Carla Evangelista [facility] [id number] 2016-02-17 01:25:00 2016-02-20 16:47:00 [facility] [id number] 2016-02-13 23:18:00 2016-02-14 04:21:00 Outpatient Rito S yana Mejía [facility] [id number] 2014-05-28 03:30:00 2014-05-28 04:05:00 Outpatient Carlo Mcrae [facility] [id number] 2014-05-09 18:00:00 2014-05-09 20:56:00 Outpatient Suzy Traylor [place] [id number] 2014-04-19 11:35:00 2014-04-19 12:34:00 Outpatient Robert Yoo [facility] [id number] 2014-02-14 13:59:00 2014-02-14 15:50:00 Outpatient Opal Diggs [facility] [id number] Results Test Description Test Time Test Comments Results Result Comments Source Blood leukocytes automated count (number/volume) 2020-02-01 09:15:00 Test Item White Blood Count (test code = 6690-2) 21.55 [facility]8 [facility] (number/volume)2020-02-01 09:15:00* Test Item Value Reference Range Interpretation Comments Red Blood Count (test code = 789-8) 3.36 4.3-5.7 [facility] (moles/volume)2020-02-01 09:15:00* Test Item Value Reference Range Interpretation Comments Hemoglobin (test code = 81467-0) 9.3 14.0-18.0 [facility] hematocrit (volume fraction)2020-02-01 09:15:00* Test Item Value Reference Range Interpretation Comments Hematocrit (test code = 4544-3) 30.3 38.2-49.6 [facility] mean corpuscular [id number] 09:15:00* Test Item Value Reference Range Interpretation Comments Mean Corpuscular Volume (test code = 787-2) 90.2 81-99 [facility] mean corpuscular hemoglobin (mass per erythrocyte)2020-02-01 09:15:00* Test Item Value Reference Range Interpretation Comments Mean Corpuscular Hemoglobin (test code = 785-6) 27.7 28-32 [facility] mean corpuscular hemoglobin concentration measurement (mass/volume)2020-02-01 09:15:00* Test Item Value Reference Range Interpretation Comments Mean Corpuscular Hemoglobin Concent (test code = 786-4) 30.7 31-35 [facility] [id number] 09:15:00* Test Item Value Reference Range Interpretation Comments Red Cell Distribution Width (test code = 96880-7) 15.4 11.7 -14.4 [facility] platelet count (count/volume)2020-02-01 09:15:00* Test Item Value Reference Range Interpretation Comments Platelet Count (test code = 777-3) 893 140-360 [facility] segmented neutrophil count as percentage of total [id number] 09:15:00* Test Item Value Reference Range Interpretation Comments Neutrophils (%) (Auto) (test code = 22448-9) 70.6 38.7-80.0 [facility] lymphocyte count as percentage ot total [id number] 09:15:00* Test Item Value Reference Range Interpretation Comments Lymphocytes (%) (Auto) (test code = 736-9) 18.2 18.0-39.1 [facility] monocyte count as percentage of total [id number] 09:15:00* Test Item Value Reference Range Interpretation Comments Monocytes (%) (Auto) (test code = 5905-5) 8.6 4.4-11.3 [facility] eosinophil count as percentage of total [id number] 09:15:00* Test Item Value Reference Range Interpretation Comments Eosinophils (%) (Auto) (test code = 713-8) 0.4 0.0-6.0 [facility] basophil count as percentage of total jniuhjdvbx5883-32-61 09:15:00* Test Item Value Reference Range Interpretation Comments Basophils (%) (Auto) (test code = 706-2) 0.4 0.0-1.0 [facility]Fluor[facility] procedure less than one hour [id number] 09:15:00* Test Item Value Reference Range Interpretation Comments IM GRANULOCYTES % (test code = IM GRANULOCYTES %) 1.8 0.0- 1.0 [facility] blood neutrophil count 2020-02-01 09:15:00* Test Item Value Reference Range Interpretation Comments Neutrophils # (Auto) (test code = 751-8) 15.2 2.1-6.9 [facility] lymphocytes count (number/volume) 2020-02-01 09:15:00* Test Item Value Reference Range Interpretation Comments Lymphocytes # (Auto) (test code = 63746-5) 3.9 1.0-3.2 [facility] monocytes automated count (number/volume)2020-02-01 09:15:00* Test Item Value Reference Range Interpretation Comments Monocytes # (Auto) (test code = 742-7) 1.9 0.2-0.8 [facility] eosinophil count 2020-02-01 09:15:00* Test Item Value Reference Range Interpretation Comments Eosinophils # (Auto) (test code = 711-2) 0.1 0.0-0.4 [facility] blood basophil count (count/volume)2020-02-01 09:15:00* Test Item Value Reference Range Interpretation Comments Basophils # (Auto) (test code = 704-7) 0.1 0.0-0.1 [facility] ArlingtonFluoroscopic procedure less than one hour mpgxsinr5365-42-34 09:15:00* Test Item Value Reference Range Interpretation Comments Absolute Immature Granulocyte (auto (annie t code = Absolute Immature Granulocyte (auto) 0.38 0-0.1 [facility] ArlingtonFluoroscopic procedure less than one hour onhgvuvx9963-63-82 09:15:00* Test Item Value Reference Range Interpretation Comments Differential Total Cells Counted (test code = Differen tial Total Cells Counted) 100 [facility] blood neutrophils/100 leukocytes 2020-02-01 09:15:00* Test Item Value Reference Range Interpretation Comments Neutrophils % (Manual) (test code = 37767-9) 73 40-74 [facility] blood lymphocytes/100 leukocytes 2020-02-01 09:15:00* Test Item Value Reference Range Interpretation Comments Lymphocytes % (Manual) (test code = 737-7) 19 19-48 [facility] blood monocytes/100 leukocytes 2020-02-01 09:15:00* Test Item Value Reference Range Interpretation Comments Monocytes % (Manual) (test code = 744-3) 6 3.4-9.0 [facility] Arlington[facility] blood myelocytes/100 leukocytes 2020-02-01 09:15:00* Test Item Value Reference Range Interpretation Comments Myelocytes % (test code = 749-2) 2 0-0 [facility] platelets count by estimate (number/volume)2020-02-01 09:15:00* Test Item Value Reference Range Interpretation Comments Platelet Estimate (test code = 91943-0) MARKEDLY INCREASED [facility] platelet clump detection by light xvhndbkcyx5489-76-43 09:15:00* Test Item Value Reference Range Interpretation Comments Clumped Platelets (test code = 7796-6) FEW NONE [facility] ArlingtonPlatelet yrtyguufft7309-51-06 09:15:00* Test Item Value Reference Range Interpretation Comments Platelet Morphology Comment (test code = 90561-0) FEW LARGE [facility] anisocytosis detection by light swmfcxlpww0000-49-96 09:15:00* Test Item Value Reference Range Interpretation Comments Anisocytosis (test code = 702-1) SLIGHT [facility] ArlingtonRB bagummnszt2095-95-16 09:15:00* Test Item Value Reference Range Interpretation Comments Red Cell Morphology Comment (test code = 6742-1) NORMAL [facility] sodium measurement (moles/volume)2020-02-01 09:15:00* Test Item Value Reference Range Interpretation Comments Sodium Level (test code = 2951-2) 140 136-145 [facility] potassium measurement (moles/volume)2020-02-01 09:15:00* Test Item Value Reference Range Interpretation Comments Potassium Level (test code = 2823-3) 3.5 3.5-5.1 [facility] chloride measurement (moles/volume)2020-02-01 09:15:00* Test Item Value Reference Range Interpretation Comments Chloride Level (test code = 2075-0) 101 98-107 [facility] carbon dioxide, total measurement (moles/volume)2020-02-01 09:15:00* Test Item Value Reference Range Interpretation Comments Carbon Dioxide Level (test code = 2028-9) 22 22-29 [facility] anion tey9794-92-57 09:15:00* Test Item Value Reference Range Interpretation Comments Anion Gap (test code = 90892-8) 20.5 8-16 [facility] urea nitrogen measurement (mass/volume)2020-02-01 09:15:00* Test Item Value Reference Range Interpretation Comments Blood Urea Nitrogen (test code = 3094-0) 17 7-26 [facility] creatinine measurement (mass/volume)2020-02-01 09:15:00* Test Item Value Reference Range Interpretation Comments Creatinine (test code = 2160-0) 5.66 0.72-1.25 [facility] urea nitrogen/creatinine mass cvsem4148-45-45 09:15:00* Test Item Value Reference Range Interpretation Comments BUN/Creatinine Ratio (test code = 3097-3) 3 6-25 [facility] ArlingtonEstimated glomerular filtration rate (GFR) evlnmzvntqslp5779-38-53 09:15:00* Test Item Value Reference Range Interpretation Comments Estimat Glomerular Filtration Rate (test code = 171007172) 13 >60 Ranges were taken from the National Kidney Disease Education Program and the [facility] literature.Reference ranges:60 or greater: Taipoq56-08 ( for 3 consecutive months): Chronic kidney disease 15 or less: Kidney failureUSMD Hospital at ArlingtonGlucose jqjkwkuoiwn6042-75-23 09:15:00* Test Item Value Reference Range Interpretation Comments Glucose Level (test code = AAJ6684) 99 74-118 [facility] calcium measurement (mass/volume)2020-02-01 09:15:00* Test Item Value Reference Range Interpretation Comments Calcium Level (test code = 22491-1) 10.4 8.4-10.2 [facility] total bilirubin measurement (mass/volume)2020-02-01 09:15:00* Test Item Value Reference Range Interpretation Comments Total Bilirubin (test code = 1975-2) 0.2 0.2-1.2 [facility] ArlingtonFluor[facility] procedure less than one hour qwjdpakq0205-34-53 09:15:00* Test Item Value Reference Range Interpretation Comments Aspartate Amino Transf (AST/SGOT) (test code = Aspartate Amino Transf (AST/SGOT)) 9 5-34 [facility] alanine aminotransferase measurement (enzymatic activity/volume)2020-02-01 09:15:00* Test Item Value Reference Range Interpretation Comments Alanine Aminotransferase (ALT/SGPT) (test code = 1742-6) < 6 0-55 [facility] protein measurement (mass/volume)2020-02-01 09:15:00* Test Item Value Reference Range Interpretation Comments Total Protein (test code = 2885-2) 7.8 6.5-8.1 [facility] albumin measurement (mass/volume)2020-02-01 09:15:00* Test Item Value Reference Range Interpretation Comments Albumin (test code = 1751-7) 2.7 3.5-5.0 [facility] ArlingtonPlasma globulin measurement (mass/volume) 2020-02-01 09:15:00* Test Item Value Reference Range Interpretation Comments Globulin (test code = 25273-4) 5.1 2.3-3.5 [facility] albumin/globulin mass jovlq9298-30-55 09:15:00* Test Item Value Reference Range Interpretation Comments Albumin/Globulin Ratio (test code = 1759-0) 0.5 0.8-2.0 [facility] alkaline phosphatase measurement (enzymatic activity/volume)2020-02-01 09:15:00* Test Item Value Reference Range Interpretation Comments Alkaline Phosphatase (test code = 6768-6) 76 40-150 [facility] ArlingtonPhosphorus qhjdefwtzwe6823-68-26 05:30:00 * Test Item Value Reference Range Interpretation Comments Phosphorus Level (test code = FGV8210) 4.2 2.3-4.7 [facility] ArlingtonAmmonia Mss-mNvs5457-99-28 11:00:00* Test Item Value Reference Range Interpretation Comments Ammonia (test code = 15606-8) 49 31-123 [facility] ArlingtonMODIFIED BA. GBMBOZN9870-73-89 10:01:00 [facility] [address] [address] Patient Name: WERNER MAXWELL MR #: [id number] : 1965 Age/Sex: 54/M Req #: [id number] Adm Physician: THELMA MCDONALD MD Ordered by: MILKA LANDERS NP Report #: [id number] Location: MED/SURG2 Room/Bed: [facility] Procedure: [id number] DX/MODIFIED B A. SWALLOW Exam Date: 01/26/20 Exam Time: 1351 REPORT STATUS: Signed PROCEDURE: X-RAY MODIFIED BARIUM SWALLOW COMPARISON: None. INDICATION: Aspiration Radiation Details: Fluoroscopy time: 1.1 minutes Cumulative dose: 10.7 mGy DISCUSSION: Fluoroscopic examination was performed in conjunction with speech pathology during swallowing a variety of thin and thick liquid consistencies. Provided images demonstrate no laryngeal penetration or aspiration. CONCLUSION: Modified barium swallow demonstrating no laryngeal penetration or aspiration. Please refer to the speech pathology report for further details. 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 Manual blood eosinophil count as percentage of total valdceyiav6789-80-00 05:00:00* Test Item Value Reference Range Interpretation Comments Eosinophils % (Manual) (test code = 714-6) 5 0-7 [facility] Arlington[facility] ABDOMEN/PELVIS [id number] 21:18:00 [facility] [address] [address] Patient Name: WERNER MAXWELL MR #: [id number] : 1965 Age/Sex: 54/M Req #: [id number] Adm Physician: THELMA MCDONALD MD Ordered by: ALFONSO GARZA MD Report #: [id number] Location: MED/SURG2 Room/Bed: [facility] Procedure: [id number] CT/CT ABDOMEN/ PELVIS W Exam Date: 01/28/20 Exam Time: 2034 REPORT STATUS: Signed EXAM: CT Abdomen and Pelvis WITH contrast INDICATION: Abdominal pain. Concern for infection. COMPARISON: None. TECHNIQUE: Abdomen and pelvis were scanned utilizing a [facility] tidetector helical scanner from the lung base to the pubic symphysis after adm inistration of IV contrast. Coronal and sagittal reformations were obtained. R outine protocol was performed. Scan was performed when during portal venous ph ase. IV CONTRAST: 100 cc Isovue-370 ORAL CONTRAST: W ater RADIATION DOSE: Total DLP: 797.66 mGy*cm Estim ated effective dose: (DLP x 0.015 x size factor) mSv COMPLICATIONS : None FINDINGS: LINES and TUBES: None. LOWER THORAX: Posterior bibasilar dependent atelectasis and fibrotic changes with mild bronchiectasis. Coronary artery calcifications. HEPATOBILIARY: No focal hepatic lesio ns. No biliary ductal dilation. GALLBLADDER: No radio-opaque stones or slu dge. No wall thickening. SPLEEN: No splenomegaly. Punctate calcified granu jesse. PANCREAS: No focal masses or ductal dilatation. ADRENALS: No] adrenal nodules. 1.2 cm well-defined low-attenuation nodule in the left adrena l gland is indeterminate. KIDNEYS/URETERS: Bilateral renal atrophy. Kidneys enhance symmetrically. No hydronephrosis. No cystic or solid mass lesions. No stones. GI TRACT: Artifact due to the presence of residual barium within the small bowel and colon (from recent modified barium swallow examination. No abnormal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 CREAT) 6.47 mg/dL 0.64-1.27 H CALCIUM (test code = CA) 7.3 mg/dL 8.5-10.5 L CBC W/O [id number] 09:38:00* Test Item Value Reference Range Interpretation Comments WHITE BLOOD CELL (test code = WBC) 13.2 x10 3/uL 3.2-11.5 H RED BLOOD CELL (test code = RBC) 3.27 x10(6)/m 4.20-5.70 L HEMOGLOBIN (test code = HGB) 9.1 g/dL 12.9-17.3 L HEMATOCRIT (test code = HCT) 28.0 % 38.7-51.0 L MEAN CELL VOLUME (test code = MCV) 86 fL 80-100 N MEAN CELL HGB (test code = MCH) 27.7 pg 26.7-33.3 N MEAN CELL HGB CONCENTRATION (test code = MCHC) 32.3 g/dL 30.0-34 .0 N RED CELL DISTRIBUTION WIDTH (test code = RDW) 16.7 % 11.3-14. 5 H PLATELET COUNT (test code = PLT) 284 x10 3/uL 130-408 N - FLUORO GUID CTRL ACC [id number] 12:30:00Patient Name: WERNER MAXWELL Unit No: [id number] EXAMS: CPT: [id number] FLUORO GUID CTRL ACC DEV [id number] RIGHT IJ TUNNELED DIALYSIS CATHETER INSERTION HISTORY: Renal failure requiring hemodialysis PROCEDURE: Written informed consent was obtained. Ultrasound evaluation of venous access sites was performed and permanent images were obtained. The access site was prepped and draped in sterile fashion. Under physician supervision, Versed and fentanyl administered intravenously for moderate sedation. Pulse oximetry, heart rate, and BPD are continuously monitored by an independent trained observer present. The physician spent 30 minutes of [id number] sedation time with the patient. The right internal jugular vein was accessed with ultrasound guidance and a guidewire was advanced into the inferior vena cava. Ultrasound demonstrated right IJ patency, images of needle access documenting and images saved. The tract was serially dilated. A large peel-away sheath was placed. The catheter was then tunneled under local anesthesia in a antegrade fashion. The tunneled dialysis catheter was then advanced through this peel-away sheath and the tips were positioned in the superior aspect of the right atrium with fluoroscopic guidance. The peel-away sheath was removed. Each port aspirated and flushed freely. Each port was primed with heparin flush (1000 units/cc). The catheter was secured to the patient's skin at the exit site with an interrupted Prolene suture. The venous access incision was closed with an interrupted Monocryl suture. S terile dressings were applied. The patient tolerated the procedure well without apparent complication. FINDINGS: Post-procedure image demonstrates a well-positioned tunneled dialysis catheter with tips in the superior aspect of the right atrium. There is no pneumothorax or evidence of air embolism. IMPRESSION: 1. Right IJ tunneled dialy sis catheter insertion. 2. The dialysis catheter is ready for immediate use. Fluoroscopy time 1.3 minutes. Total recorded dose 36 mGy CAK. 1 image. Name: WERNER MAXWELL [facility] [place] [facility] Phys: Tommy Hoover MD [address] OB: 1965 Age: 53 Sex: M [place], [place] [address] Loc: N.0673 1 Exam Date: Status: ADM IN PH: FAX: PAGE 1 Signed Report (CONTINUED) Patient Name: WERNER MAXWELL Unit No: [id number] EXAMS: CPT: [id number] FLUORO GUID CTRL ACC DEV [id number] <Continued> at 1230 Reported and signed by: Sha Kathleen MD CC: Chau Lopez MD; Tommy Haider MD Technologist: LAILA Layne Time: DAP (Gy m2): Air Kerma (mGy): Trscr Dt/Tm: 03/21/2019 (1230) by:[email or web address] Orig Print D/T: S: 03/21/2019 (1230) BATCH NO: N/A Name: WERNER MAXWELL [facility] Phys: Tommy Hoover MD [address] [facility] : 1965 Age: 53 Sex: M [place] [id number] Loc: N.0673 1 Exam Date: 03/17/2019 Status: ADM IN PH: FAX: PAGE 2 Signed Report AB HEPATITIS B SURFACE [id number] 05:09:00* Test Item Value Reference Range Interpretation Comments AB HEPATITIS B SURFACE QUANT (test code = HBSABQ) <3.1 mIU/mL Immu nity>9.9 A Status of Immunity Anti-HBs Level Inconsistent with Immunity 0.0 - 9.9Consistent with Immunity >9.9Performed At: [facility] [id number] [place], [place] [id number] Kyle L MD Ph:[phone] [id number] 12:29:00* Test Item Value Reference Range Interpretation Comments GLUBED (test code = GLUBED) 89 MG/DL 70-105 N BASIC METABOLIC [id number] 06:20:00* Test Item Value Reference Range Interpretation Comments SODIUM (test code = NA) 137 mmol/L 135-145 N POTASSIUM (test code = K) 3.9 mmol/L 3.6-5.0 N CHLORIDE (test code = CL) 105 mmol/L 101-111 N CARBON DIOXIDE (test code = CO2) 21 mmol/L 21-31 N GLUCOSE (test code = GLU) 160 mg/dl 70-100 H BLOOD UREA NITROGEN (test code = BUN) 55 mg/dl 6-20 H GLOMERULAR FILTRATION RATE (test code = GFR) 13 >60 L The estimated glomerular filtration rate is computed usingpatient race, age (>18), sex, and serum creatinine. If anyof the needed data elements are missing the Laboratory cannot compute an estimation of the glomerular filtration rate. CREATININE (test code = CREAT) 5.90 mg/dL 0.64-1.27 H CALCIUM (test code = CA) 7.2 mg/dL 8.5-10.5 L CBC W/AUTO [id number] 12:35:00* Test Item Value Reference Range Interpretation Comments WHITE BLOOD CELL (test code = WBC) 11.4 x10 3/uL 3.2-11.5 N CORRECTED WBC (test code = CWBC) 11.4 x10 3/uL 3.2-11.5 N | ~~ Corrected WBC Result ~~ || WBC has been corrected due to NRBC | RED BLOOD CELL (test code = RBC) 3.98 x10(6)/m 4.20-5.70 L HEMOGLOBIN (test code = HGB) 11.0 g/dL 12.9-17.3 L HEMATOCRIT (test code = HCT) 33.4 % 38.7-51.0 L MEAN CELL VOLUME (test code = MCV) 84 fL 80-100 N MEAN CELL HGB (test code = MCH) 27.7 pg 26.7-33.3 N MEAN CELL HGB CONCENTRATION (test code = MCHC) 33.0 g/dL 30.0-34 .0 N RED CELL DISTRIBUTION WIDTH (test code = RDW) 16.3 % 11.3-14. 5 H PLATELET COUNT (test code = PLT) 303 x10 3/uL 130-408 N MEAN PLATELET VOLUME (test code = MPV) 8.0 fl 6.4-10.5 N WBC [id number] 12:35:00* Test Item Value Reference Range Interpretation Comments TOTAL CELLS COUNTED (test code = TCC) 100 #CELLS SEGMENTED NEUTROPHILS (test code = SEG) 71 % 43-65 H BAND NEUTROPHIL (test code = BAND) 3 % 0-1 H LYMPHOCYTE (test code = LYMPH) 11 % 20.5-45.5 L MONOCYTE (test code = MON) 10 % 5.5-11.7 N EOSINOPHIL (test code = EOS) 2 % 0.9-2.9 N BASOPHIL (test code = BASO) 1 % 0.2-1.0 N MYELOCYTE (test code = MYELO) 2 % 0-0 H BAND ABSOLUTE (test code = BAND#) 0.34 10 3/uL 0.00-0.70 N NEUTROPHIL ABSOLUTE (test code = SEG#) 8.09 10 3/uL 6.00-26.00 N LYMPH ABSOLUTE (test code = LYMPH#) 1.3 10 3/uL 2.00-17.00 L ATYPICAL LYMPH ABSOLUTE (test code = ALYMPH#) 0.00 10 3/uL 0.00-0.0 0 N MONOCYTE ABSOLUTE (test code = MON#) 1.14 10 3/uL 0.40-3.10 N BASOPHIL ABSOLUTE (test code = BASO#) 0.11 10 3/uL 0.00-0.20 N EOSINOPHIL ABSOLUTE (test code = EOS#) 0.22 10 3/uL 0.00-0.50 N METAMYELOCYTE ABSOLUTE (test code = META#) 0.00 10 3/uL 0.00-0.00 N MYELOCYTE ABSOLUTE (test code = MYELO#) 0.23 10 3/uL 0.00-0.00 H PROMYELOCYTE ABSOLUTE (test code = PROM#) 0.00 10 3/uL 0.00-0.00 N BLASTS ABSOLUTE (test code = BLAST#) 0.00 10 3/uL 0.00-0.00 N OTHER CELLS ABSOLUTE (test code = OCT#) 0.00 10 3/uL 0.00-0.00 N RBC MORPHOLOGY COMMENT (test code = MOC) Normal NORMAL PLATELET MORPHOLOGY (test code = PLTMORPH) NORMAL NORMAL CBC W/AUTO [id number] 11:25:00* Test Item Value Reference Range Interpretation Comments WHITE BLOOD CELL (test code = WBC) 11.4 x10 3/uL 3.2-11.5 N RED BLOOD CELL (test code = RBC) 3.98 x10(6)/m 4.20-5.70 L HEMOGLOBIN (test code = HGB) 11.0 g/dL 12.9-17.3 L HEMATOCRIT (test code = HCT) 33.4 % 38.7-51.0 L MEAN CELL VOLUME (test code = MCV) 84 fL 80-100 N MEAN CELL HGB (test code = MCH) 27.7 pg 26.7-33.3 N MEAN CELL HGB CONCENTRATION (test code = MCHC) 33.0 g/dL 30.0-34 .0 N RED CELL DISTRIBUTION WIDTH (test code = RDW) 16.3 % 11.3-14. 5 H PLATELET COUNT (test code = PLT) 303 x10 3/uL 130-408 N MEAN PLATELET VOLUME (test code = MPV) 8.0 fl 6.4-10.5 N WBC [id number] 11:25:00* Test Item Value Reference Range Interpretation Comments TOTAL CELLS COUNTED (test code = TCC) #CELLS RBC MORPHOLOGY COMMENT (test code = MOC) NORMAL PLATELET MORPHOLOGY (test code = PLTMORPH) NORMAL CBC W/AUTO [id number] 11:25:00* Test Item Value Reference Range Interpretation Comments WHITE BLOOD CELL (test code = WBC) 11.4 x10 3/uL 3.2-11.5 N RED BLOOD CELL (test code = RBC) 3.98 x10(6)/m 4.20-5.70 L HEMOGLOBIN (test code = HGB) 11.0 g/dL 12.9-17.3 L HEMATOCRIT (test code = HCT) 33.4 % 38.7-51.0 L MEAN CELL VOLUME (test code = MCV) 84 fL 80-100 N MEAN CELL HGB (test code = MCH) 27.7 pg 26.7-33.3 N MEAN CELL HGB CONCENTRATION (test code = MCHC) 33.0 g/dL 30.0-34 .0 N RED CELL DISTRIBUTION WIDTH (test code = RDW) 16.3 % 11.3-14. 5 H PLATELET COUNT (test code = PLT) 303 x10 3/uL 130-408 N MEAN PLATELET VOLUME (test code = MPV) 8.0 fl 6.4-10.5 N WBC [id number] 11:25:00* Test Item Value Reference Range Interpretation Comments TOTAL CELLS COUNTED (test code = TCC) #CELLS RBC MORPHOLOGY COMMENT (test code = MOC) NORMAL PLATELET MORPHOLOGY (test code = PLTMORPH) NORMAL BASIC METABOLIC [id number] 10:30:00* Test Item Value Reference Range Interpretation Comments SODIUM (test code = NA) 137 mmol/L 135-145 N POTASSIUM (test code = K) 3.8 mmol/L 3.6-5.0 N CHLORIDE (test code = CL) 105 mmol/L 101-111 N CARBON DIOXIDE (test code = CO2) 23 mmol/L 21-31 N GLUCOSE (test code = GLU) 88 mg/dl 70-100 N BLOOD UREA NITROGEN (test code = BUN) 45 mg/dl 6-20 H GLOMERULAR FILTRATION RATE (test code = GFR) 16 >60 L The estimated glomerular filtration rate is computed usingpatient race, age (>18), sex, and serum creatinine. If anyof the needed data elements are missing the Laboratory cannot compute an estimation of the glomerular filtration rate. CREATININE (test code = CREAT) 4.90 mg/dL 0.64-1.27 H CALCIUM (test code = CA) 7.2 mg/dL 8.5-10.5 L [id number] 10:30:00* Test Item Value Reference Range Interpretation Comments PHOSPHOROUS (test code = PHOS) 5.4 mg/dl 2.5-4.6 H [id number] 10:30:00* Test Item Value Reference Range Interpretation Comments MAGNESIUM (test code = MAG) 1.7 mg/dl 1.8-2.5 L [id number] 20:13:00* Test Item Value Reference Range Interpretation Comments GLUBED (test code = GLUBED) 164 MG/DL 70-105 H CBC W/AUTO [id number] 12:14:00* Test Item Value Reference Range Interpretation Comments WHITE BLOOD CELL (test code = WBC) 12.3 x10 3/uL 3.2-11.5 H CORRECTED WBC (test code = CWBC) 12.3 x10 3/uL 3.2-11.5 H | ~~ Corrected WBC Result ~~ || WBC has been corrected due to NRBC | RED BLOOD CELL (test code = RBC) 3.42 x10(6)/m 4.20-5.70 L HEMOGLOBIN (test code = HGB) 9.5 g/dL 12.9-17.3 L HEMATOCRIT (test code = HCT) 29.3 % 38.7-51.0 L MEAN CELL VOLUME (test code = MCV) 86 fL 80-100 N MEAN CELL HGB (test code = MCH) 27.6 pg 26.7-33.3 N MEAN CELL HGB CONCENTRATION (test code = MCHC) 32.3 g/dL 30.0-34 .0 N RED CELL DISTRIBUTION WIDTH (test code = RDW) 16.2 % 11.3-14. 5 H PLATELET COUNT (test code = PLT) 326 x10 3/uL 130-408 N MEAN PLATELET VOLUME (test code = MPV) 8.1 fl 6.4-10.5 N WBC [id number] 12:14:00* Test Item Value Reference Range Interpretation Comments TOTAL CELLS COUNTED (test code = TCC) 100 #CELLS SEGMENTED NEUTROPHILS (test code = SEG) 83 % 43-65 H BAND NEUTROPHIL (test code = BAND) 3 % 0-1 H LYMPHOCYTE (test code = LYMPH) 6 % 20.5-45.5 L MONOCYTE (test code = MON) 7 % 5.5-11.7 N MYELOCYTE (test code = MYELO) 1 % 0-0 H BAND ABSOLUTE (test code = BAND#) 0.37 10 3/uL 0.00-0.70 N NEUTROPHIL ABSOLUTE (test code = SEG#) 10.21 10 3/uL 6.00-26.00 N LYMPH ABSOLUTE (test code = LYMPH#) 0.7 10 3/uL 2.00-17.00 L ATYPICAL LYMPH ABSOLUTE (test code = ALYMPH#) 0.00 10 3/uL 0.00-0.0 0 N MONOCYTE ABSOLUTE (test code = MON#) 0.86 10 3/uL 0.40-3.10 N BASOPHIL ABSOLUTE (test code = BASO#) 0.00 10 3/uL 0.00-0.20 N EOSINOPHIL ABSOLUTE (test code = EOS#) 0.00 10 3/uL 0.00-0.50 N METAMYELOCYTE ABSOLUTE (test code = META#) 0.00 10 3/uL 0.00-0.00 N MYELOCYTE ABSOLUTE (test code = MYELO#) 0.12 10 3/uL 0.00-0.00 H PROMYELOCYTE ABSOLUTE (test code = PROM#) 0.00 10 3/uL 0.00-0.00 N BLASTS ABSOLUTE (test code = BLAST#) 0.00 10 3/uL 0.00-0.00 N OTHER CELLS ABSOLUTE (test code = OCT#) 0.00 10 3/uL 0.00-0.00 N HYPERSEGMENTED POLYS (test code = HYPP) FEW NONE SEEN RBC MORPHOLOGY COMMENT (test code = MOC) Normal NORMAL PLATELET MORPHOLOGY (test code = PLTMORPH) NORMAL NORMAL BASIC METABOLIC [id number] 11:38:00* Test Item Value Reference Range Interpretation Comments SODIUM (test code = NA) 138 mmol/L 135-145 N POTASSIUM (test code = K) 3.7 mmol/L 3.6-5.0 CHLORIDE (test code = CL) 107 mmol/L 101-111 N CARBON DIOXIDE (test code = CO2) 21 mmol/L 21-31 N GLUCOSE (test code = GLU) 121 mg/dl 70-100 H BLOOD UREA NITROGEN (test code = BUN) 71 mg/dl 6-20 H GLOMERULAR FILTRATION RATE (test code = GFR) 13 >60 L The estimated glomerular filtration rate is computed usingpatient race, age (>18), sex, and serum creatinine. If anyof the needed data elements are missing the Laboratory cannot compute an estimation of the glomerular filtration rate. CREATININE (test code = CREAT) 5.72 mg/dL 0.64-1.27 H CALCIUM (test code = CA) 7.1 mg/dL 8.5-10.5 L [id number] 11:38:00* Test Item Value Reference Range Interpretation Comments PHOSPHOROUS (test code = PHOS) 5.8 mg/dl 2.5-4.6 H [id number] 11:12:00* Test Item Value Reference Range Interpretation Comments GLUBED (test code = GLUBED) 109 MG/DL 70-105 H CBC W/AUTO [id number] 11:11:00* Test Item Value Reference Range Interpretation Comments WHITE BLOOD CELL (test code = WBC) 12.3 x10 3/uL 3.2-11.5 H RED BLOOD CELL (test code = RBC) 3.42 x10(6)/m 4.20-5.70 L HEMOGLOBIN (test code = HGB) 9.5 g/dL 12.9-17.3 L HEMATOCRIT (test code = HCT) 29.3 % 38.7-51.0 L MEAN CELL VOLUME (test code = MCV) 86 fL 80-100 N MEAN CELL HGB (test code = MCH) 27.6 pg 26.7-33.3 N MEAN CELL HGB CONCENTRATION (test code = MCHC) 32.3 g/dL 30.0-34 .0 N RED CELL DISTRIBUTION WIDTH (test code = RDW) 16.2 % 11.3-14. 5 H PLATELET COUNT (test code = PLT) 326 x10 3/uL 130-408 N MEAN PLATELET VOLUME (test code = MPV) 8.1 fl 6.4-10.5 N WBC [id number] 11:11:00* Test Item Value Reference Range Interpretation Comments TOTAL CELLS COUNTED (test code = TCC) #CELLS RBC MORPHOLOGY COMMENT (test code = MOC) NORMAL PLATELET MORPHOLOGY (test code = PLTMORPH) NORMAL CBC W/AUTO [id number] 11:11:00* Test Item Value Reference Range Interpretation Comments WHITE BLOOD CELL (test code = WBC) 12.3 x10 3/uL 3.2-11.5 H RED BLOOD CELL (test code = RBC) 3.42 x10(6)/m 4.20-5.70 L HEMOGLOBIN (test code = HGB) 9.5 g/dL 12.9-17.3 L HEMATOCRIT (test code = HCT) 29.3 % 38.7-51.0 L MEAN CELL VOLUME (test code = MCV) 86 fL 80-100 N MEAN CELL HGB (test code = MCH) 27.6 pg 26.7-33.3 N MEAN CELL HGB CONCENTRATION (test code = MCHC) 32.3 g/dL 30.0-34 .0 N RED CELL DISTRIBUTION WIDTH (test code = RDW) 16.2 % 11.3-14. 5 H PLATELET COUNT (test code = PLT) 326 x10 3/uL 130-408 N MEAN PLATELET VOLUME (test code = MPV) 8.1 fl 6.4-10.5 N WBC [id number] 11:11:00* Test Item Value Reference Range Interpretation Comments TOTAL CELLS COUNTED (test code = TCC) #CELLS RBC MORPHOLOGY COMMENT (test code = MOC) NORMAL PLATELET MORPHOLOGY (test code = PLTMORPH) NORMAL AB HEPATITIS B [id number] 19:46:00* Test Item Value Reference Range Interpretation Comments AB HEPATITIS B SURFACE (test code = HBSAB) NEGATIVE NEGATIVE AG HEPATITIS B [id number] 19:46:00* Test Item Value Reference Range Interpretation Comments AG HEPATITIS B SURFACE (test code = HBSAG) NEGATIVE NEGATIVE AB HEPATITIS B [id number] 19:46:00* Test Item Value Reference Range Interpretation Comments AB HEPATITIS B CORE (test code = HBCAB) NEGATIVE NEGATIVE PROTHROMBIN [id number] 07:19:00* Test Item Value Reference Range Interpretation Comments PROTHROMBIN TIME PATIENT (test code = PTP) 12.1 SECONDS 9.6-13.0 N INTERNATIONAL NORMAL RATIO (test code = INR) 1.1 The INR is to be used only for monitoring oral anticoagulanttherapy. INDICATION INR VALUE 1. Prophylaxis, deep venous thrombosis, 2.0 - 2.5 including high-risk surgery.2. Prophylaxis, deep venous thrombosis, 2.0 - 3.0 hip surgery, treatment for deep venous thrombosis or pulmonary prevention of systemic embolism in patients with valvular heart disease, atrial fibrillation, tissue heart valve, or acute myocardial infarction.3. Mechanical prosthesis heart valves, 3.0 - 4.5 recurrent systemic embolism. RECOLLECT - HEMOLYZED. CBC W/AUTO [id number] 07:16:00* Test Item Value Reference Range Interpretation Comments WHITE BLOOD CELL (test code = WBC) 12.5 x10 3/uL 3.2-11.5 H CORRECTED WBC (test code = CWBC) 12.5 x10 3/uL 3.2-11.5 H | ~~ Corrected WBC Result ~~ || WBC has been corrected due to NRBC | RED BLOOD CELL (test code = RBC) 3.55 x10(6)/m 4.20-5.70 L HEMOGLOBIN (test code = HGB) 9.8 g/dL 12.9-17.3 L HEMATOCRIT (test code = HCT) 30.7 % 38.7-51.0 L MEAN CELL VOLUME (test code = MCV) 86 fL 80-100 N MEAN CELL HGB (test code = MCH) 27.7 pg 26.7-33.3 N MEAN CELL HGB CONCENTRATION (test code = MCHC) 32.1 g/dL 30.0-34 .0 N RED CELL DISTRIBUTION WIDTH (test code = RDW) 16.3 % 11.3-14. 5 H PLATELET COUNT (test code = PLT) 302 x10 3/uL 130-408 N MEAN PLATELET VOLUME (test code = MPV) 8.4 fl 6.4-10.5 N WBC [id number] 07:16:00* Test Item Value Reference Range Interpretation Comments TOTAL CELLS COUNTED (test code = TCC) 100 #CELLS SEGMENTED NEUTROPHILS (test code = SEG) 89 % 43-65 H BAND NEUTROPHIL (test code = BAND) 1 % 0-1 N LYMPHOCYTE (test code = LYMPH) 6 % 20.5-45.5 L MONOCYTE (test code = MON) 4 % 5.5-11.7 L BAND ABSOLUTE (test code = BAND#) 0.13 10 3/uL 0.00-0.70 N NEUTROPHIL ABSOLUTE (test code = SEG#) 11.13 10 3/uL 6.00-26.00 N LYMPH ABSOLUTE (test code = LYMPH#) 0.8 10 3/uL 2.00-17.00 L ATYPICAL LYMPH ABSOLUTE (test code = ALYMPH#) 0.00 10 3/uL 0.00-0.0 0 N MONOCYTE ABSOLUTE (test code = MON#) 0.50 10 3/uL 0.40-3.10 N BASOPHIL ABSOLUTE (test code = BASO#) 0.00 10 3/uL 0.00-0.20 N EOSINOPHIL ABSOLUTE (test code = EOS#) 0.00 10 3/uL 0.00-0.50 N METAMYELOCYTE ABSOLUTE (test code = META#) 0.00 10 3/uL 0.00-0.00 N MYELOCYTE ABSOLUTE (test code = MYELO#) 0.00 10 3/uL 0.00-0.00 N PROMYELOCYTE ABSOLUTE (test code = PROM#) 0.00 10 3/uL 0.00-0.00 N BLASTS ABSOLUTE (test code = BLAST#) 0.00 10 3/uL 0.00-0.00 N OTHER CELLS ABSOLUTE (test code = OCT#) 0.00 10 3/uL 0.00-0.00 N RBC MORPHOLOGY COMMENT (test code = MOC) Normal NORMAL PLATELET MORPHOLOGY (test code = PLTMORPH) NORMAL NORMAL COMPREHENSIVE METABOLIC [id number] 05:55:00* Test Item Value Reference Range Interpretation Comments SODIUM (test code = NA) 138 mmol/L 135-145 N POTASSIUM (test code = K) 5.3 mmol/L 3.6-5.0 H CHLORIDE (test code = CL) 110 mmol/L 101-111 N CARBON DIOXIDE (test code = CO2) 16 mmol/L 21-31 L GLUCOSE (test code = GLU) 113 mg/dl 70-100 H BLOOD UREA NITROGEN (test code = BUN) 91 mg/dl 6-20 H GLOMERULAR FILTRATION RATE (test code = GFR) 11 >60 L The estimated glomerular filtration rate is computed usingpatient race, age (>18), sex, and serum creatinine. If anyof the needed data elements are missing the Laboratory cannot compute an estimation of the glomerular filtration rate. CREATININE (test code = CREAT) 6.67 mg/dL 0.64-1.27 H TOTAL PROTEIN (test code = PROT) 5.3 g/dL 6.7-8.2 L ALBUMIN (test code = ALB) 2.6 g/dL 3.2-5.5 L CALCIUM (test code = CA) 7.1 mg/dL 8.5-10.5 L BILIRUBIN TOTAL (test code = BILT) 1.10 mg/dL 0.2-1.3 N SGOT/AST (test code = AST) 19 U/L 10-42 N SGPT/ALT (test code = ALT) 15 U/L 10-60 N ALKALINE PHOSPHATASE (test code = ALKP) 42 U/L 42-121 N CBC W/AUTO [id number] 05:48:00* Test Item Value Reference Range Interpretation Comments WHITE BLOOD CELL (test code = WBC) 12.5 x10 3/uL 3.2-11.5 H RED BLOOD CELL (test code = RBC) 3.55 x10(6)/m 4.20-5.70 L HEMOGLOBIN (test code = HGB) 9.8 g/dL 12.9-17.3 L HEMATOCRIT (test code = HCT) 30.7 % 38.7-51.0 L MEAN CELL VOLUME (test code = MCV) 86 fL 80-100 N MEAN CELL HGB (test code = MCH) 27.7 pg 26.7-33.3 N MEAN CELL HGB CONCENTRATION (test code = MCHC) 32.1 g/dL 30.0-34 .0 N RED CELL DISTRIBUTION WIDTH (test code = RDW) 16.3 % 11.3-14. 5 H PLATELET COUNT (test code = PLT) 302 x10 3/uL 130-408 N MEAN PLATELET VOLUME (test code = MPV) 8.4 fl 6.4-10.5 N WBC [id number] 05:48:00* Test Item Value Reference Range Interpretation Comments TOTAL CELLS COUNTED (test code = TCC) #CELLS RBC MORPHOLOGY COMMENT (test code = MOC) NORMAL PLATELET MORPHOLOGY (test code = PLTMORPH) NORMAL CBC W/AUTO [id number] 05:48:00* Test Item Value Reference Range Interpretation Comments WHITE BLOOD CELL (test code = WBC) 12.5 x10 3/uL 3.2-11.5 H RED BLOOD CELL (test code = RBC) 3.55 x10(6)/m 4.20-5.70 L HEMOGLOBIN (test code = HGB) 9.8 g/dL 12.9-17.3 L HEMATOCRIT (test code = HCT) 30.7 % 38.7-51.0 L MEAN CELL VOLUME (test code = MCV) 86 fL 80-100 N MEAN CELL HGB (test code = MCH) 27.7 pg 26.7-33.3 N MEAN CELL HGB CONCENTRATION (test code = MCHC) 32.1 g/dL 30.0-34 .0 N RED CELL DISTRIBUTION WIDTH (test code = RDW) 16.3 % 11.3-14. 5 H PLATELET COUNT (test code = PLT) 302 x10 3/uL 130-408 N MEAN PLATELET VOLUME (test code = MPV) 8.4 fl 6.4-10.5 N WBC [id number] 05:48:00* Test Item Value Reference Range Interpretation Comments TOTAL CELLS COUNTED (test code = TCC) #CELLS RBC MORPHOLOGY COMMENT (test code = MOC) NORMAL PLATELET MORPHOLOGY (test code = PLTMORPH) NORMAL CBC W/AUTO [id number] 09:58:00* Test Item Value Reference Range Interpretation Comments WHITE BLOOD CELL (test code = WBC) 13.1 x10 3/uL 3.2-11.5 H CORRECTED WBC (test code = CWBC) 13.1 x10 3/uL 3.2-11.5 H | ~~ Corrected WBC Result ~~ || WBC has been corrected due to NRBC | RED BLOOD CELL (test code = RBC) 3.56 x10(6)/m 4.20-5.70 L HEMOGLOBIN (test code = HGB) 10.0 g/dL 12.9-17.3 L HEMATOCRIT (test code = HCT) 30.3 % 38.7-51.0 L MEAN CELL VOLUME (test code = MCV) 85 fL 80-100 N MEAN CELL HGB (test code = MCH) 28.0 pg 26.7-33.3 N MEAN CELL HGB CONCENTRATION (test code = MCHC) 33.0 g/dL 30.0-34 .0 N RED CELL DISTRIBUTION WIDTH (test code = RDW) 16.4 % 11.3-14. 5 H PLATELET COUNT (test code = PLT) 344 x10 3/uL 130-408 N MEAN PLATELET VOLUME (test code = MPV) 8.4 fl 6.4-10.5 N WBC [id number] 09:58:00* Test Item Value Reference Range Interpretation Comments TOTAL CELLS COUNTED (test code = TCC) 100 #CELLS SEGMENTED NEUTROPHILS (test code = SEG) 86 % 43-65 H LYMPHOCYTE (test code = LYMPH) 6 % 20.5-45.5 L MONOCYTE (test code = MON) 3 % 5.5-11.7 L METAMYELOCYTE (test code = META) 4 % 0-0 H MYELOCYTE (test code = MYELO) 1 % 0-0 H BAND ABSOLUTE (test code = BAND#) 0.00 10 3/uL 0.00-0.70 N NEUTROPHIL ABSOLUTE (test code = SEG#) 11.27 10 3/uL 6.00-26.00 N LYMPH ABSOLUTE (test code = LYMPH#) 0.8 10 3/uL 2.00-17.00 L ATYPICAL LYMPH ABSOLUTE (test code = ALYMPH#) 0.00 10 3/uL 0.00-0.0 0 N MONOCYTE ABSOLUTE (test code = MON#) 0.39 10 3/uL 0.40-3.10 L BASOPHIL ABSOLUTE (test code = BASO#) 0.00 10 3/uL 0.00-0.20 N EOSINOPHIL ABSOLUTE (test code = EOS#) 0.00 10 3/uL 0.00-0.50 N METAMYELOCYTE ABSOLUTE (test code = META#) 0.52 10 3/uL 0.00-0.00 H MYELOCYTE ABSOLUTE (test code = MYELO#) 0.13 10 3/uL 0.00-0.00 H PROMYELOCYTE ABSOLUTE (test code = PROM#) 0.00 10 3/uL 0.00-0.00 N BLASTS ABSOLUTE (test code = BLAST#) 0.00 10 3/uL 0.00-0.00 N OTHER CELLS ABSOLUTE (test code = OCT#) 0.00 10 3/uL 0.00-0.00 N POLYCHROMASIA (test code = POLC) 1+ NONE SEEN A HYPERSEGMENTED POLYS (test code = HYPP) 2+ NONE SEEN A RBC MORPHOLOGY COMMENT (test code = MOC) See comment NORMAL PLATELET MORPHOLOGY (test code = PLTMORPH) NORMAL NORMAL BASIC METABOLIC [id number] 07:23:00* Test Item Value Reference Range Interpretation Comments SODIUM (test code = NA) 138 mmol/L 135-145 N POTASSIUM (test code = K) 5.4 mmol/L 3.6-5.0 H CHLORIDE (test code = CL) 112 mmol/L 101-111 H CARBON DIOXIDE (test code = CO2) 16 mmol/L 21-31 L GLUCOSE (test code = GLU) 114 mg/dl 70-100 H BLOOD UREA NITROGEN (test code = BUN) 85 mg/dl 6-20 H GLOMERULAR FILTRATION RATE (test code = GFR) 12 >60 L The estimated glomerular filtration rate is computed usingpatient race, age (>18), sex, and serum creatinine. If anyof the needed data elements are missing the Laboratory cannot compute an estimation of the glomerular filtration rate. CREATININE (test code = CREAT) 6.21 mg/dL 0.64-1.27 H CALCIUM (test code = CA) 7.4 mg/dL 8.5-10.5 L [id number] 07:23:00* Test Item Value Reference Range Interpretation Comments MAGNESIUM (test code = MAG) 1.6 mg/dl 1.8-2.5 L CBC W/AUTO [id number] 07:15:00* Test Item Value Reference Range Interpretation Comments WHITE BLOOD CELL (test code = WBC) 13.1 x10 3/uL 3.2-11.5 H RED BLOOD CELL (test code = RBC) 3.56 x10(6)/m 4.20-5.70 L HEMOGLOBIN (test code = HGB) 10.0 g/dL 12.9-17.3 L HEMATOCRIT (test code = HCT) 30.3 % 38.7-51.0 L MEAN CELL VOLUME (test code = MCV) 85 fL 80-100 N MEAN CELL HGB (test code = MCH) 28.0 pg 26.7-33.3 N MEAN CELL HGB CONCENTRATION (test code = MCHC) 33.0 g/dL 30.0-34 .0 N RED CELL DISTRIBUTION WIDTH (test code = RDW) 16.4 % 11.3-14. 5 H PLATELET COUNT (test code = PLT) 344 x10 3/uL 130-408 N MEAN PLATELET VOLUME (test code = MPV) 8.4 fl 6.4-10.5 N WBC [id number] 07:15:00* Test Item Value Reference Range Interpretation Comments TOTAL CELLS COUNTED (test code = TCC) #CELLS RBC MORPHOLOGY COMMENT (test code = MOC) NORMAL PLATELET MORPHOLOGY (test code = PLTMORPH) NORMAL CBC W/AUTO [id number] 07:15:00* Test Item Value Reference Range Interpretation Comments WHITE BLOOD CELL (test code = WBC) 13.1 x10 3/uL 3.2-11.5 H RED BLOOD CELL (test code = RBC) 3.56 x10(6)/m 4.20-5.70 L HEMOGLOBIN (test code = HGB) 10.0 g/dL 12.9-17.3 L HEMATOCRIT (test code = HCT) 30.3 % 38.7-51.0 L MEAN CELL VOLUME (test code = MCV) 85 fL 80-100 N MEAN CELL HGB (test code = MCH) 28.0 pg 26.7-33.3 N MEAN CELL HGB CONCENTRATION (test code = MCHC) 33.0 g/dL 30.0-34 .0 N RED CELL DISTRIBUTION WIDTH (test code = RDW) 16.4 % 11.3-14. 5 H PLATELET COUNT (test code = PLT) 344 x10 3/uL 130-408 N MEAN PLATELET VOLUME (test code = MPV) 8.4 fl 6.4-10.5 N WBC [id number] 07:15:00* Test Item Value Reference Range Interpretation Comments TOTAL CELLS COUNTED (test code = TCC) #CELLS RBC MORPHOLOGY COMMENT (test code = MOC) NORMAL PLATELET MORPHOLOGY (test code = PLTMORPH) NORMAL BASIC METABOLIC [id number] 09:43:00* Test Item Value Reference Range Interpretation Comments SODIUM (test code = NA) 138 mmol/L 135-145 N POTASSIUM (test code = K) 5.0 mmol/L 3.6-5.0 N CHLORIDE (test code = CL) 117 mmol/L 101-111 H CARBON DIOXIDE (test code = CO2) 15 mmol/L 21-31 L GLUCOSE (test code = GLU) 111 mg/dl 70-100 H BLOOD UREA NITROGEN (test code = BUN) 75 mg/dl 6-20 H GLOMERULAR FILTRATION RATE (test code = GFR) 13 >60 L The estimated glomerular filtration rate is computed usingpatient race, age (>18), sex, and serum creatinine. If anyof the needed data elements are missing the Laboratory cannot compute an estimation of the glomerular filtration rate. CREATININE (test code = CREAT) 5.77 mg/dL 0.64-1.27 H CALCIUM (test code = CA) 6.7 mg/dL 8.5-10.5 LL Cri tical Value reported toFirst Name:CARMEN Last Name:YADY READ BACK AND VERIFIEDby JOSE MANUEL, on 03/15/19, @ 0943. [id number] 09:43:00* Test Item Value Reference Range Interpretation Comments PHOSPHOROUS (test code = PHOS) 5.2 mg/dl 2.5-4.6 H - XR CHEST 1 [id number] 09:08:00Patient Name: WERNER MAXWELL Unit No: [id number] EXAMS: CPT: [id number] XR CHEST 1 V [id number] STUDY: - XR CHEST 1 V INDICATION: wheezing TECHNIQUE: Single AP view of the chest. COMPARISON: Chest radiograph from 03/09/2019. FINDINGS: Stable mildly enlarged cardiac silhouette. No mediastinal shift. Stable mild to moderate interstitial pulmonary edema. Stable tubular densities about the left perihilar regions, favored to be engorged pulmonary vessels. No clear evidence for pleural effusion or pneumothorax. IMPRESSION: Pulmonary interstitial edema without significant change compared to radiograph from 03/09/2019. at 0908 Reported and signed by: KIM ALVAREZ MD CC: Chau Lopez MD; Tommy Haider MD Technologist: Ephraim Layne Time: DAP (Gy m2): Air Kerma (mGy): Trscr Dt/Tm: 03/15/2019 (0908) by:Lauren Orig Print D/T: S: 03/15/2019 (09) BATCH NO: N/A Name: WERNER MAXWELL [facility] [place] Phys: Tommy Hoover MD [address] [facility] : 1965 Age: 53 Sex: M [place], [place] [address] Loc: [id number] 1 Exam Date: 03/15/2019 Status: ADM IN PH: FAX: PAGE 1 Signed Report BASIC METABOLIC [id number] 07:46:00* Test Item Value Reference Range Interpretation Comments SODIUM (test code = NA) 138 mmol/L 135-145 N POTASSIUM (test code = K) 5.0 mmol/L 3.6-5.0 N CHLORIDE (test code = CL) 116 mmol/L 101-111 H CARBON DIOXIDE (test code = CO2) 14 mmol/L 21-31 L GLUCOSE (test code = GLU) 122 mg/dl 70-100 H BLOOD UREA NITROGEN (test code = BUN) 77 mg/dl 6-20 H GLOMERULAR FILTRATION RATE (test code = GFR) 12 >60 L The estimated glomerular filtration rate is computed usingpatient race, age (>18), sex, and serum creatinine. If anyof the needed data elements are missing the Laboratory cannot compute an estimation of the glomerular filtration rate. CREATININE (test code = CREAT) 6.08 mg/dL 0.64-1.27 H CALCIUM (test code = CA) 6.8 mg/dL 8.5-10.5 LL Cr itical Value reported toFirst Name:SERENA Last Name:BIENVENIDO READ BACK AND VERIFIEDby NMaiaLABROME, on 03/14/19, @ 0654. [id number] 07:46:00* Test Item Value Reference Range Interpretation Comments PHOSPHOROUS (test code = PHOS) 5.1 mg/dl 2.5-4.6 H [id number] 07:46:00* Test Item Value Reference Range Interpretation Comments MAGNESIUM (test code = MAG) 1.7 mg/dl 1.8-2.5 L PARATHYROID [id number] 07:46:00* Test Item Value Reference Range Interpretation Comments PARATHYROID HORMONE (test code = PTH) 1062 pg/ml 12-88 H VITAMIN D [id number] 07:46:00* Test Item Value Reference Range Interpretation Comments VITAMIN D 25-HYDROXY (test code = VITD25) 7 ng/ml 30-100 L Interpretive Data :Vit D 25 Hydroxy Vit D Status Vit OH Vit D Conc Range(ng/mL) Deficient < 20 Insufficient 20 - < 30 Sufficient 30 - 100 Upper Safety Limit > 100 BASIC METABOLIC [id number] 06:56:00* Test Item Value Reference Range Interpretation Comments SODIUM (test code = NA) 138 mmol/L 135-145 N POTASSIUM (test code = K) 5.0 mmol/L 3.6-5.0 N CHLORIDE (test code = CL) 116 mmol/L 101-111 H CARBON DIOXIDE (test code = CO2) 14 mmol/L 21-31 L GLUCOSE (test code = GLU) 122 mg/dl 70-100 H BLOOD UREA NITROGEN (test code = BUN) 77 mg/dl 6-20 H GLOMERULAR FILTRATION RATE (test code = GFR) 12 >60 L The estimated glomerular filtration rate is computed usingpatient race, age (>18), sex, and serum creatinine. If anyof the needed data elements are missing the Laboratory cannot compute an estimation of the glomerular filtration rate. CREATININE (test code = CREAT) 6.08 mg/dL 0.64-1.27 H CALCIUM (test code = CA) 6.8 mg/dL 8.5-10.5 LL Cr itical Value reported toFirst Name:SERENA Last Name:BIENVENIDO READ BACK AND VERIFIEDby NMaiaLAB.JEANETH, on 03/14/19, @ 0654. [id number] 06:56:00* Test Item Value Reference Range Interpretation Comments PHOSPHOROUS (test code = PHOS) 5.1 mg/dl 2.5-4.6 H [id number] 06:56:00* Test Item Value Reference Range Interpretation Comments MAGNESIUM (test code = MAG) 1.7 mg/dl 1.8-2.5 L PARATHYROID [id number] 06:56:00* Test Item Value Reference Range Interpretation Comments PARATHYROID HORMONE (test code = PTH) 1062 pg/ml 12-88 H VITAMIN D [id number] 06:56:00* Test Item Value Reference Range Interpretation Comments VITAMIN D 25-HYDROXY (test code = VITD25) ng/ml 30-100 BASIC METABOLIC [id number] 06:54:00* Test Item Value Reference Range Interpretation Comments SODIUM (test code = NA) 138 mmol/L 135-145 N POTASSIUM (test code = K) 5.0 mmol/L 3.6-5.0 N CHLORIDE (test code = CL) 116 mmol/L 101-111 H CARBON DIOXIDE (test code = CO2) 14 mmol/L 21-31 L GLUCOSE (test code = GLU) 122 mg/dl 70-100 H BLOOD UREA NITROGEN (test code = BUN) 77 mg/dl 6-20 H GLOMERULAR FILTRATION RATE (test code = GFR) 12 >60 L The estimated glomerular filtration rate is computed usingpatient race, age (>18), sex, and serum creatinine. If anyof the needed data elements are missing the Laboratory cannot compute an estimation of the glomerular filtration rate. CREATININE (test code = CREAT) 6.08 mg/dL 0.64-1.27 H CALCIUM (test code = CA) 6.8 mg/dL 8.5-10.5 LL Cr itical Value reported toFirst Name:SERENA Last Name:BIENVENIDO READ BACK AND VERIFIEDby DELVIS, on 03/14/19, @ 0654. [id number] 06:54:00* Test Item Value Reference Range Interpretation Comments PHOSPHOROUS (test code = PHOS) 5.1 mg/dl 2.5-4.6 H [id number] 06:54:00* Test Item Value Reference Range Interpretation Comments MAGNESIUM (test code = MAG) 1.7 mg/dl 1.8-2.5 L PARATHYROID [id number] 06:54:00* Test Item Value Reference Range Interpretation Comments PARATHYROID HORMONE (test code = PTH) pg/ml 12-88 VITAMIN D [id number] 06:54:00* Test Item Value Reference Range Interpretation Comments VITAMIN D 25-HYDROXY (test code = VITD25) ng/ml 30-100 CALCIUM [id number] 06:52:00* Test Item Value Reference Range Interpretation Comments CALCIUM IONIZED (test code = SHERIF) 1.04 mmol/L 1.13-1.32 L ARTERIAL BLOOD [id number] 16:38:00* Test Item Value Reference Range Interpretation Comments ARTERIAL BLOOD GAS PH (test code = PHA) 7.308 7.35-7.45 L ARTERIAL BLOOD GAS PCO2 (test code = PCO2A) 29.6 mmHg 35-45 L ARTERIAL BLOOD GAS PO2 (test code = PO2A) 114.0 mmHg 80-100 H BICARBONATE TOTAL HCO3 (test code = HCO3) 14.5 mmol/L 22-26 L BASE EXCESS (test code = BILLY) -10.6 mmol/L (+/-)2.0 L ABG O2 SATURATION (test code = SATA) 97.5 % 95.0-100.0 N ABG TYPE (test code = TYPEA) Arterial ARTERIAL FIO2 (test code = FIO2A) 21.0 % ABG VENT MODE (test code = MODEA) Room Air ABG SITE (test code = SITEA) Right Radial ALLENS TEST (test code = ALLENS) Yes TOTAL HGB (test code = THB) 9.8 g/dL 13.0-17.0 L BASIC METABOLIC [id number] 12:32:00* Test Item Value Reference Range Interpretation Comments SODIUM (test code = NA) 138 mmol/L 135-145 N POTASSIUM (test code = K) 4.5 mmol/L 3.6-5.0 N CHLORIDE (test code = CL) 111 mmol/L 101-111 N CARBON DIOXIDE (test code = CO2) 17 mmol/L 21-31 L GLUCOSE (test code = GLU) 127 mg/dl 70-100 H BLOOD UREA NITROGEN (test code = BUN) 75 mg/dl 6-20 H GLOMERULAR FILTRATION RATE (test code = GFR) 11 >60 L The estimated glomerular filtration rate is computed usingpatient race, age (>18), sex, and serum creatinine. If anyof the needed data elements are missing the Laboratory cannot compute an estimation of the glomerular filtration rate. CREATININE (test code = CREAT) 6.72 mg/dL 0.64-1.27 H CALCIUM (test code = CA) 6.9 mg/dL 8.5-10.5 LL Cri tical Value reported toFirst Name:LIZA Last Name:RAINRESULTS READ BACK AND VERIFIEDby ALIE, on 03/12/19, @ 1232. BASIC METABOLIC [id number] 10:59:00* Test Item Value Reference Range Interpretation Comments SODIUM (test code = NA) 141 mmol/L 135-145 POTASSIUM (test code = K) 5.0 mmol/L 3.6-5.0 N CHLORIDE (test code = CL) 116 mmol/L 101-111 H CARBON DIOXIDE (test code = CO2) 16 mmol/L 21-31 L GLUCOSE (test code = GLU) 126 mg/dl 70-100 H BLOOD UREA NITROGEN (test code = BUN) 81 mg/dl 6-20 H GLOMERULAR FILTRATION RATE (test code = GFR) 10 >60 L The estimated glomerular filtration rate is computed usingpatient race, age (>18), sex, and serum creatinine. If anyof the needed data elements are missing the Laboratory cannot compute an estimation of the glomerular filtration rate. CREATININE (test code = CREAT) 7.33 mg/dL 0.64-1.27 H CALCIUM (test code = CA) 7.6 mg/dL 8.5-10.5 L EXTRA PURPLE TUBE [id number] 05:35:00* Test Item Value Reference Range Interpretation Comments GLUBED (test code = GLUBED) 106 MG/DL 70-105 H [id number] 21:05:00* Test Item Value Reference Range Interpretation Comments GLUBED (test code = GLUBED) 146 MG/DL 70-105 H [id number] 15:58:00* Test Item Value Reference Range Interpretation Comments GLUBED (test code = GLUBED) 107 MG/DL 70-105 H [id number] 12:41:00* Test Item Value Reference Range Interpretation Comments GLUBED (test code = GLUBED) 103 MG/DL 70-105 N BASIC METABOLIC [id number] 08:34:00* Test Item Value Reference Range Interpretation Comments SODIUM (test code = NA) 149 mmol/L 135-145 H POTASSIUM (test code = K) 5.6 mmol/L 3.6-5.0 H CHLORIDE (test code = CL) 121 mmol/L 101-111 H CARBON DIOXIDE (test code = CO2) 16 mmol/L 21-31 L GLUCOSE (test code = GLU) 87 mg/dl 70-100 N BLOOD UREA NITROGEN (test code = BUN) 83 mg/dl 6-20 H GLOMERULAR FILTRATION RATE (test code = GFR) 9 >60 L The estimated glomerular filtration rate is computed usingpatient race, age (>18), sex, and serum creatinine. If anyof the needed data elements are missing the Laboratory cannot compute an estimation of the glomerular filtration rate. CREATININE (test code = CREAT) 8.12 mg/dL 0.64-1.27 H CALCIUM (test code = CA) 8.2 mg/dL 8.5-10.5 L EXTRA PURPLE TUBE COLLECTED- CT ABD PELVIS W/O [id number] 22:29:00Patient Name: WERNER MAXWELL Unit No: [id number] EXAMS: CPT: [id number] CT ABD PELVIS W/O CONT 17827 CT ABDOMEN AND PELVIS WITHOUT CONTRAST: CLINICAL HISTORY: Fever TECHNIQUE: Axial CT imaging of the abdomen and pelvis was performed without IV co ntrast. Coronal and sagittal reformatted images are submitted. FINDINGS: The study is limited as no IV contrast was given. The liver, spleen, pancreas, kidneys, and adrenal glands appear normal. Bowel loops are normal in caliber. There is no free air. No abdominal or retroperitoneal mass is seen. There is no free fluid or fluid collection. No inflammatory process is seen in the abdomen or pelvis. The appendix appears normal. The abdominal aorta is normal in caliber. No osseous abnormalities are seen. There are groundglass inf iltrates in both lung bases consistent with an infectious or inflammatory process IMPRESSION: Negative noncontrast CT of the abdomen and pelvis. Bibasilar groundglass infiltrates consistent with an infec tious or inflammatory process. DLP: 1485.18 mGy-cm CT dose optimization is achieved for this examination by the use of a CT protocol in accordance with ACR practice standards and adherence to balancer's recommendations with automated exposure control. at 2229 Reported and signed by: Mark Lynch MD CC: Chau ramos MD; Daniel Lopez MD Technologist: Margaret Chatman CTDI: 25.59 DLP: 1485.18Trscr Dt/ Tm: 03/09/2019 (2221) by:[email or web address] Orig Print D/T: S: 0 03/09/2019 (2976) [facility] NO: N/A Name: WERNER MAXWELL [facility] Phys: Daniel Carmona MD [address] [place] : 1965 Age: 53 Sex: [place] [address] Loc: N.[id number] 1 Exam D ate: 03/09/2019 Status: ADM IN PH: FAX: PAGE 1 Signed Report - US SCROTUM AND [id number] 22:12:00Patient Name: WERNER MAXWELL Unit No: [id number] EXAMS: CPT: [id number] US SCROTUM AND [facility] [id number] ULTRASOUND SCROTUM: CLINICAL HISTORY: Scrotal pain FINDINGS: 2-D grayscale, pulsewave, and/or color Doppler was performed. The right testicle measures 4.0 x 1.4 x 2.8 cm. The left testicle measures 2.9 x 2.2 x 2.5 cm. There is good Doppler signal in both testicles. The epididymal heads are symmetric. IMPRESSION: Negative scrotal ultrasound. at 2212 Reported and signed by: Mark Lynch MD CC: Chau Lopez MD; Daniel Lopez MD Technologist: Cielo Melvin Probe: Trscr Dt/Tm: 03/09/2019 (2211) by:[email or web address] Orig Print D/T: S: 03/09/2019 (221) BATCH NO: N/A Name: WERNER MAXWELL [facility] [place] [facility] Phys: Daniel Carmona MD [address] [facility] : 1965 Age: 53 Sex: M [place], [place] [address] Loc: N.ERSD 1 Exam Date: 03/09/2019 Status: ADM IN PH: FAX: PAGE 1 Signed Report UA RFLX MICR CULT IF [id number] 20:49:00* Test Item Value Reference Range Interpretation Comments UA COLOR (test code = COLU) YELLOW YELLOW UA APPEARANCE (test code = APPU) HAZY CLEAR UA GLUCOSE DIPSTICK (test code = DGLUU) NEGATIVE NEGATIVE UA BILIRUBIN DIPSTICK (test code = BILU) NEGATIVE NEGATIVE UA KETONE DIPSTICK (test code = KETU) NEGATIVE NEGATIVE UA SPECIFIC GRAVITY (test code = SGU) 1.011 1.001-1.030 UA BLOOD DIPSTICK (test code = DERIK) 2+ NEGATIVE UA PH DIPSTICK (test code = MAIN) 6.0 5.0-9.0 UA PROTEIN DIPSTICK (test code = PROU) 3+ NEGATIVE A UA UROBILINOGEN DIPSTICK (test code = URO) NEGATIVE <=1.0 UA NITRITE DIPSTICK (test code = MONIE) NEGATIVE NEGATIVE UA ASCORBIC ACID DIPSTICK (test code = AAU) NEGATIVE UA LEUKOCYTE ESTERASE DIPSTICK (test code = LEUU) NEGATIVE NEGA TIVE UA WBC (test code = WBCUR) 0-5 /HPF 0-5 UA RBC (test code = RBCU) 21-50 /HPF 0-5 UA EPITHELIAL CELLS (test code = EPIU) FEW /LPF NONE-FEW UA BACTERIA (test code = BACU) 1+ /HPF NONE SEEN A UA MUCUS (test code = MUCU) 1+ /LPF NONE SEEN A UA AMORPHOUS SEDIMENT (test code = AMORU) FEW /HPF NONE SEEN Indication for culture: Sev. Sepsis-no other srcCBC W/AUTO [id number] 20:43:00* Test Item Value Reference Range Interpretation Comments WHITE BLOOD CELL (test code = WBC) 11.1 x10 3/uL 3.2-11.5 N CORRECTED WBC (test code = CWBC) 11.1 x10 3/uL 3.2-11.5 N | ~~ Corrected WBC Result ~~ || WBC has been corrected due to NRBC | RED BLOOD CELL (test code = RBC) 3.65 x10(6)/m 4.20-5.70 L HEMOGLOBIN (test code = HGB) 10.1 g/dL 12.9-17.3 L HEMATOCRIT (test code = HCT) 31.6 % 38.7-51.0 L MEAN CELL VOLUME (test code = MCV) 87 fL 80-100 N MEAN CELL HGB (test code = MCH) 27.6 pg 26.7-33.3 N MEAN CELL HGB CONCENTRATION (test code = MCHC) 31.9 g/dL 30.0-34 .0 N RED CELL DISTRIBUTION WIDTH (test code = RDW) 16.3 % 11.3-14. 5 H PLATELET COUNT (test code = PLT) 331 x10 3/uL 130-408 N MEAN PLATELET VOLUME (test code = MPV) 8.4 fl 6.4-10.5 N WBC [id number] 20:43:00* Test Item Value Reference Range Interpretation Comments TOTAL CELLS COUNTED (test code = TCC) 100 #CELLS SEGMENTED NEUTROPHILS (test code = SEG) 96 % 43-65 H LYMPHOCYTE (test code = LYMPH) 3 % 20.5-45.5 L MONOCYTE (test code = MON) 1 % 5.5-11.7 L BAND ABSOLUTE (test code = BAND#) 0.00 10 3/uL 0.00-0.70 N NEUTROPHIL ABSOLUTE (test code = SEG#) 10.66 10 3/uL 6.00-26.00 N LYMPH ABSOLUTE (test code = LYMPH#) 0.3 10 3/uL 2.00-17.00 L ATYPICAL LYMPH ABSOLUTE (test code = ALYMPH#) 0.00 10 3/uL 0.00-0.0 0 N MONOCYTE ABSOLUTE (test code = MON#) 0.11 10 3/uL 0.40-3.10 L BASOPHIL ABSOLUTE (test code = BASO#) 0.00 10 3/uL 0.00-0.20 N EOSINOPHIL ABSOLUTE (test code = EOS#) 0.00 10 3/uL 0.00-0.50 N METAMYELOCYTE ABSOLUTE (test code = META#) 0.00 10 3/uL 0.00-0.00 N MYELOCYTE ABSOLUTE (test code = MYELO#) 0.00 10 3/uL 0.00-0.00 N PROMYELOCYTE ABSOLUTE (test code = PROM#) 0.00 10 3/uL 0.00-0.00 N BLASTS ABSOLUTE (test code = BLAST#) 0.00 10 3/uL 0.00-0.00 N OTHER CELLS ABSOLUTE (test code = OCT#) 0.00 10 3/uL 0.00-0.00 N HYPERSEGMENTED POLYS (test code = HYPP) FEW NONE SEEN RBC MORPHOLOGY COMMENT (test code = MOC) Normal NORMAL PLATELET MORPHOLOGY (test code = PLTMORPH) NORMAL NORMAL B-TYPE NATRIURETIC [id number] 20:37:00* Test Item Value Reference Range Interpretation Comments B-TYPE NATRIURETIC PEPTIDE (test code = BNP) 44 pg/ml 0-100 N BASIC METABOLIC [id number] 20:30:00* Test Item Value Reference Range Interpretation Comments SODIUM (test code = NA) 148 mmol/L 135-145 H POTASSIUM (test code = K) 5.9 mmol/L 3.6-5.0 H NO HEMOLYSIS CHLORIDE (test code = CL) 121 mmol/L 101-111 H CARBON DIOXIDE (test code = CO2) 18 mmol/L 21-31 L GLUCOSE (test code = GLU) 137 mg/dl 70-100 H BLOOD UREA NITROGEN (test code = BUN) 84 mg/dl 6-20 H GLOMERULAR FILTRATION RATE (test code = GFR) 9 >60 L The estimated glomerular filtration rate is computed usingpatient race, age (>18), sex, and serum creatinine. If anyof the needed data elements are missing the Laboratory cannot compute an estimation of the glomerular filtration rate. CREATININE (test code = CREAT) 8.24 mg/dL 0.64-1.27 H CALCIUM (test code = CA) 7.9 mg/dL 8.5-10.5 L LIVER FUNCTION [id number] 20:30:00* Test Item Value Reference Range Interpretation Comments TOTAL PROTEIN (test code = PROT) 5.8 g/dL 6.7-8.2 L ALBUMIN (test code = ALB) 2.9 g/dL 3.2-5.5 L BILIRUBIN TOTAL (test code = BILT) 0.50 mg/dL 0.2-1.3 N BILIRUBIN DIRECT (test code = BILD) < 0.1 mg/dL 0.00-0.20 N SGOT/AST (test code = AST) 15 U/L 10-42 N SGPT/ALT (test code = ALT) 15 U/L 10-60 N ALKALINE PHOSPHATASE (test code = ALKP) 55 U/L 42-121 N LACTIC [id number] 20:29:00* Test Item Value Reference Range Interpretation Comments LACTIC ACID (test code = LACT) 1.7 mmol/L 0.5-2.0 N [id number] 20:27:00* Test Item Value Reference Range Interpretation Comments TROPONIN-I (test code = TROPI) <0.020 ng/mL 0.000-0.034 N CBC W/AUTO [id number] 20:07:00* Test Item Value Reference Range Interpretation Comments WHITE BLOOD CELL (test code = WBC) 11.1 x10 3/uL 3.2-11.5 N RED BLOOD CELL (test code = RBC) 3.65 x10(6)/m 4.20-5.70 L HEMOGLOBIN (test code = HGB) 10.1 g/dL 12.9-17.3 L HEMATOCRIT (test code = HCT) 31.6 % 38.7-51.0 L MEAN CELL VOLUME (test code = MCV) 87 fL 80-100 N MEAN CELL HGB (test code = MCH) 27.6 pg 26.7-33.3 N MEAN CELL HGB CONCENTRATION (test code = MCHC) 31.9 g/dL 30.0-34 .0 N RED CELL DISTRIBUTION WIDTH (test code = RDW) 16.3 % 11.3-14. 5 H PLATELET COUNT (test code = PLT) 331 x10 3/uL 130-408 N MEAN PLATELET VOLUME (test code = MPV) 8.4 fl 6.4-10.5 N WBC [id number] 20:07:00* Test Item Value Reference Range Interpretation Comments TOTAL CELLS COUNTED (test code = TCC) #CELLS RBC MORPHOLOGY COMMENT (test code = MOC) NORMAL PLATELET MORPHOLOGY (test code = PLTMORPH) NORMAL CBC W/AUTO [id number] 20:07:00* Test Item Value Reference Range Interpretation Comments WHITE BLOOD CELL (test code = WBC) 11.1 x10 3/uL 3.2-11.5 N RED BLOOD CELL (test code = RBC) 3.65 x10(6)/m 4.20-5.70 L HEMOGLOBIN (test code = HGB) 10.1 g/dL 12.9-17.3 L HEMATOCRIT (test code = HCT) 31.6 % 38.7-51.0 L MEAN CELL VOLUME (test code = MCV) 87 fL 80-100 N MEAN CELL HGB (test code = MCH) 27.6 pg 26.7-33.3 N MEAN CELL HGB CONCENTRATION (test code = MCHC) 31.9 g/dL 30.0-34 .0 N RED CELL DISTRIBUTION WIDTH (test code = RDW) 16.3 % 11.3-14. 5 H PLATELET COUNT (test code = PLT) 331 x10 3/uL 130-408 N MEAN PLATELET VOLUME (test code = MPV) 8.4 fl 6.4-10.5 N WBC [id number] 20:07:00* Test Item Value Reference Range Interpretation Comments TOTAL CELLS COUNTED (test code = TCC) #CELLS RBC MORPHOLOGY COMMENT (test code = MOC) NORMAL PLATELET MORPHOLOGY (test code = PLTMORPH) NORMAL - XR CHEST 1 [id number] 19:55:00Patient Name: WERNER MAXWELL Unit No: [id number] EXAMS: CPT: [id number] XR CHEST 1 V 87633 CHEST 1 VIEW COMPARISON: February 06, 2019 HISTORY: Sepsis FINDINGS:Pulmonary vascular congestion with interstitial opacities unchanged. No consolidation. No pneumothorax is seen. Mediastinal contours are unremarkable. IMPRESSION: Pulmonary edema, stable. at 1954 Reported and signed by: Rosalee Fletcher MD CC: Chau Lopez MD; Daniel Lopez MD Technologist: Brit Layne Time: DAP (Gy m2): Air Kerma (mGy): Trscr Dt/Tm: 03/09/2019 (1954) by:[email or web address] Orig Print D/T: S: 03/09/2019 (1957) BATCH NO: N/A Name: WERNER MAXWELL [facility] Phys: Daniel Carmona MD [address] [facility] : 1965 Age: 53 Sex: [place] [address] Loc: N.ERS Exam Date: 03/09/2019 Status: REG ER PH: FAX: PAGE 1 Signed Report BASIC METABOLIC [id number] 06:52:00* Test Item Value Reference Range Interpretation Comments SODIUM (test code = NA) 139 mmol/L 135-145 N POTASSIUM (test code = K) 4.2 mmol/L 3.6-5.0 N CHLORIDE (test code = CL) 108 mmol/L 101-111 N CARBON DIOXIDE (test code = CO2) 20 mmol/L 21-31 L GLUCOSE (test code = GLU) 84 mg/dl 70-100 N BLOOD UREA NITROGEN (test code = BUN) 63 mg/dl 6-20 H GLOMERULAR FILTRATION RATE (test code = GFR) 16 >60 L The estimated glomerular filtration rate is computed usingpatient race, age (>18), sex, and serum creatinine. If anyof the needed data elements are missing the Laboratory cannot compute an estimation of the glomerular filtration rate. CREATININE (test code = CREAT) 5.02 mg/dL 0.64-1.27 H CALCIUM (test code = CA) 7.5 mg/dL 8.5-10.5 L CBC W/AUTO [id number] 06:29:00* Test Item Value Reference Range Interpretation Comments WHITE BLOOD CELL (test code = WBC) 10.2 x10 3/uL 3.2-11.5 N RED BLOOD CELL (test code = RBC) 3.71 x10(6)/m 4.20-5.70 L HEMOGLOBIN (test code = HGB) 10.4 g/dL 12.9-17.3 L HEMATOCRIT (test code = HCT) 31.4 % 38.7-51.0 L MEAN CELL VOLUME (test code = MCV) 85 fL 80-100 N MEAN CELL HGB (test code = MCH) 28.0 pg 26.7-33.3 N MEAN CELL HGB CONCENTRATION (test code = MCHC) 33.1 g/dL 30.0-34 .0 N RED CELL DISTRIBUTION WIDTH (test code = RDW) 15.2 % 11.3-14. 5 H PLATELET COUNT (test code = PLT) 222 x10 3/uL 130-408 N MEAN PLATELET VOLUME (test code = MPV) 8.9 fl 6.4-10.5 N NEUTROPHIL % (test code = NT%) 79.9 % 40.0-70.0 H LYMPHOCYTE % (test code = LY%) 12.4 % 20-40 L MONOCYTE % (test code = MO%) 7.2 % 1-10 N EOSINOPHIL % (test code = EO%) 0.4 % 1.0-5.0 L BASOPHIL % (test code = BA%) 0.1 % 0.0-1.0 N NEUTROPHIL # (test code = NT#) 8.1 x10 3/uL 1.6-7.2 H LYMPHOCYTE # (test code = LY#) 1.30 x10 3/uL 1.1-2.7 N MONOCYTE # (test code = MO#) 0.7 x10 3/uL 0.3-0.8 N EOSINOPHIL # (test code = EO#) 0.0 x10 3/uL 0.0-0.5 N BASOPHIL # (test code = BA#) 0.0 x10 3/uL 0.0-0.1 N [id number] 12:12:00* Test Item Value Reference Range Interpretation Comments GLUBED (test code = GLUBED) 98 MG/DL 70-105 N COMPREHENSIVE METABOLIC [id number] 10:07:00* Test Item Value Reference Range Interpretation Comments SODIUM (test code = NA) 138 mmol/L 135-145 N POTASSIUM (test code = K) 4.0 mmol/L 3.6-5.0 N CHLORIDE (test code = CL) 108 mmol/L 101-111 N CARBON DIOXIDE (test code = CO2) 20 mmol/L 21-31 L GLUCOSE (test code = GLU) 100 mg/dl 70-100 N BLOOD UREA NITROGEN (test code = BUN) 56 mg/dl 6-20 H GLOMERULAR FILTRATION RATE (test code = GFR) 17 >60 L The estimated glomerular filtration rate is computed usingpatient race, age (>18), sex, and serum creatinine. If anyof the needed data elements are missing the Laboratory cannot compute an estimation of the glomerular filtration rate. CREATININE (test code = CREAT) 4.75 mg/dL 0.64-1.27 H TOTAL PROTEIN (test code = PROT) 5.4 g/dL 6.7-8.2 L ALBUMIN (test code = ALB) 2.7 g/dL 3.2-5.5 L CALCIUM (test code = CA) 7.5 mg/dL 8.5-10.5 L BILIRUBIN TOTAL (test code = BILT) 0.40 mg/dL 0.2-1.3 N SGOT/AST (test code = AST) 14 U/L 10-42 N SGPT/ALT (test code = ALT) 15 U/L 10-60 N ALKALINE PHOSPHATASE (test code = ALKP) 62 U/L 42-121 N [id number] 10:07:00* Test Item Value Reference Range Interpretation Comments PHOSPHOROUS (test code = PHOS) 4.6 mg/dl 2.5-4.6 N [id number] 10:07:00* Test Item Value Reference Range Interpretation Comments MAGNESIUM (test code = MAG) 1.5 mg/dl 1.8-2.5 L CBC W/AUTO [id number] 09:55:00* Test Item Value Reference Range Interpretation Comments WHITE BLOOD CELL (test code = WBC) 10.6 x10 3/uL 3.2-11.5 N RED BLOOD CELL (test code = RBC) 3.99 x10(6)/m 4.20-5.70 L HEMOGLOBIN (test code = HGB) 11.0 g/dL 12.9-17.3 L HEMATOCRIT (test code = HCT) 34.2 % 38.7-51.0 L MEAN CELL VOLUME (test code = MCV) 86 fL 80-100 N MEAN CELL HGB (test code = MCH) 27.6 pg 26.7-33.3 N MEAN CELL HGB CONCENTRATION (test code = MCHC) 32.1 g/dL 30.0-34 .0 N RED CELL DISTRIBUTION WIDTH (test code = RDW) 15.0 % 11.3-14. 5 H PLATELET COUNT (test code = PLT) 243 x10 3/uL 130-408 N MEAN PLATELET VOLUME (test code = MPV) 8.9 fl 6.4-10.5 N NEUTROPHIL % (test code = NT%) 78.5 % 40.0-70.0 H LYMPHOCYTE % (test code = LY%) 13.9 % 20-40 L MONOCYTE % (test code = MO%) 6.4 % 1-10 N EOSINOPHIL % (test code = EO%) 0.9 % 1.0-5.0 L BASOPHIL % (test code = BA%) 0.3 % 0.0-1.0 N NEUTROPHIL # (test code = NT#) 8.4 x10 3/uL 1.6-7.2 H LYMPHOCYTE # (test code = LY#) 1.50 x10 3/uL 1.1-2.7 N MONOCYTE # (test code = MO#) 0.7 x10 3/uL 0.3-0.8 N EOSINOPHIL # (test code = EO#) 0.1 x10 3/uL 0.0-0.5 N BASOPHIL # (test code = BA#) 0.0 x10 3/uL 0.0-0.1 N BASIC METABOLIC [id number] 05:44:00* Test Item Value Reference Range Interpretation Comments SODIUM (test code = NA) 143 mmol/L 135-145 N POTASSIUM (test code = K) 4.6 mmol/L 3.6-5.0 N CHLORIDE (test code = CL) 113 mmol/L 101-111 H CARBON DIOXIDE (test code = CO2) 22 mmol/L 21-31 N GLUCOSE (test code = GLU) 91 mg/dl 70-100 N BLOOD UREA NITROGEN (test code = BUN) 69 mg/dl 6-20 H GLOMERULAR FILTRATION RATE (test code = GFR) 15 >60 L The estimated glomerular filtration rate is computed usingpatient race, age (>18), sex, and serum creatinine. If anyof the needed data elements are missing the Laboratory cannot compute an estimation of the glomerular filtration rate. CREATININE (test code = CREAT) 5.32 mg/dL 0.64-1.27 H CALCIUM (test code = CA) 7.4 mg/dL 8.5-10.5 L [id number] 05:44:00* Test Item Value Reference Range Interpretation Comments PHOSPHOROUS (test code = PHOS) 5.2 mg/dl 2.5-4.6 H CBC W/AUTO [id number] 05:20:00* Test Item Value Reference Range Interpretation Comments WHITE BLOOD CELL (test code = WBC) 7.9 x10 3/uL 3.2-11.5 N RED BLOOD CELL (test code = RBC) 3.74 x10(6)/m 4.20-5.70 L HEMOGLOBIN (test code = HGB) 10.5 g/dL 12.9-17.3 L HEMATOCRIT (test code = HCT) 31.9 % 38.7-51.0 L MEAN CELL VOLUME (test code = MCV) 85 fL 80-100 N MEAN CELL HGB (test code = MCH) 28.0 pg 26.7-33.3 N MEAN CELL HGB CONCENTRATION (test code = MCHC) 32.8 g/dL 30.0-34 .0 N RED CELL DISTRIBUTION WIDTH (test code = RDW) 15.3 % 11.3-14. 5 H PLATELET COUNT (test code = PLT) 210 x10 3/uL 130-408 N MEAN PLATELET VOLUME (test code = MPV) 8.6 fl 6.4-10.5 N NEUTROPHIL % (test code = NT%) 77.5 % 40.0-70.0 H LYMPHOCYTE % (test code = LY%) 14.6 % 20-40 L MONOCYTE % (test code = MO%) 7.1 % 1-10 N EOSINOPHIL % (test code = EO%) 0.5 % 1.0-5.0 L BASOPHIL % (test code = BA%) 0.3 % 0.0-1.0 N NEUTROPHIL # (test code = NT#) 6.2 x10 3/uL 1.6-7.2 N LYMPHOCYTE # (test code = LY#) 1.20 x10 3/uL 1.1-2.7 N MONOCYTE # (test code = MO#) 0.6 x10 3/uL 0.3-0.8 N EOSINOPHIL # (test code = EO#) 0.0 x10 3/uL 0.0-0.5 N BASOPHIL # (test code = BA#) 0.0 x10 3/uL 0.0-0.1 N URINALYSIS [id number] 18:57:00* Test Item Value Reference Range Interpretation Comments UA COLOR (test code = COLU) Straw YELLOW UA APPEARANCE (test code = APPU) Clear CLEAR UA GLUCOSE DIPSTICK (test code = DGLUU) NEGATIVE NEGATIVE UA BILIRUBIN DIPSTICK (test code = BILU) NEGATIVE NEGATIVE UA KETONE DIPSTICK (test code = KETU) NEGATIVE NEGATIVE UA SPECIFIC GRAVITY (test code = SGU) 1.011 1.001-1.030 UA BLOOD DIPSTICK (test code = DERIK) 3+ NEGATIVE UA PH DIPSTICK (test code = MAIN) 7.0 5.0-9.0 UA PROTEIN DIPSTICK (test code = PROU) 3+ NEGATIVE A UA UROBILINOGEN DIPSTICK (test code = URO) NEGATIVE <=1.0 UA NITRITE DIPSTICK (test code = MONIE) NEGATIVE NEGATIVE UA ASCORBIC ACID DIPSTICK (test code = AAU) NEGATIVE UA LEUKOCYTE ESTERASE DIPSTICK (test code = LEUU) NEGATIVE NEGA TIVE UA WBC (test code = WBCU) 6-10 /HPF 0-5 UA RBC (test code = RBCU) 51-100 /HPF 0-5 UA EPITHELIAL CELLS (test code = EPIU) RARE /LPF NONE-FEW UA BACTERIA (test code = BACU) None /HPF NONE SEEN UA MUCUS (test code = MUCU) 1+ /LPF NONE SEEN BASIC METABOLIC [id number] 08:09:00* Test Item Value Reference Range Interpretation Comments SODIUM (test code = NA) 148 mmol/L 135-145 H POTASSIUM (test code = K) 4.8 mmol/L 3.6-5.0 N CHLORIDE (test code = CL) 114 mmol/L 101-111 H CARBON DIOXIDE (test code = CO2) 20 mmol/L 21-31 L GLUCOSE (test code = GLU) 79 mg/dl 70-100 N BLOOD UREA NITROGEN (test code = BUN) 78 mg/dl 6-20 H GLOMERULAR FILTRATION RATE (test code = GFR) 14 >60 L The estimated glomerular filtration rate is computed usingpatient race, age (>18), sex, and serum creatinine. If anyof the needed data elements are missing the Laboratory cannot compute an estimation of the glomerular filtration rate. CREATININE (test code = CREAT) 5.43 mg/dL 0.64-1.27 H CALCIUM (test code = CA) 7.7 mg/dL 8.5-10.5 L [id number] 08:09:00* Test Item Value Reference Range Interpretation Comments PHOSPHOROUS (test code = PHOS) 5.1 mg/dl 2.5-4.6 H CBC W/AUTO [id number] 07:28:00* Test Item Value Reference Range Interpretation Comments WHITE BLOOD CELL (test code = WBC) 9.3 x10 3/uL 3.2-11.5 N RED BLOOD CELL (test code = RBC) 3.75 x10(6)/m 4.20-5.70 L HEMOGLOBIN (test code = HGB) 10.4 g/dL 12.9-17.3 L HEMATOCRIT (test code = HCT) 31.9 % 38.7-51.0 L MEAN CELL VOLUME (test code = MCV) 85 fL 80-100 N MEAN CELL HGB (test code = MCH) 27.8 pg 26.7-33.3 N MEAN CELL HGB CONCENTRATION (test code = MCHC) 32.7 g/dL 30.0-34 .0 N RED CELL DISTRIBUTION WIDTH (test code = RDW) 15.8 % 11.3-14. 5 H PLATELET COUNT (test code = PLT) 278 x10 3/uL 130-408 N MEAN PLATELET VOLUME (test code = MPV) 8.5 fl 6.4-10.5 N NEUTROPHIL % (test code = NT%) 77.0 % 40.0-70.0 H LYMPHOCYTE % (test code = LY%) 14.4 % 20-40 L MONOCYTE % (test code = MO%) 8.4 % 1-10 N EOSINOPHIL % (test code = EO%) 0.1 % 1.0-5.0 L BASOPHIL % (test code = BA%) 0.1 % 0.0-1.0 N NEUTROPHIL # (test code = NT#) 7.2 x10 3/uL 1.6-7.2 N LYMPHOCYTE # (test code = LY#) 1.30 x10 3/uL 1.1-2.7 N MONOCYTE # (test code = MO#) 0.8 x10 3/uL 0.3-0.8 N EOSINOPHIL # (test code = EO#) 0.0 x10 3/uL 0.0-0.5 N BASOPHIL # (test code = BA#) 0.0 x10 3/uL 0.0-0.1 N [id number] 06:39:00* Test Item Value Reference Range Interpretation Comments GLUBED (test code = GLUBED) 69 MG/DL 70-105 L [id number] 21:24:00* Test Item Value Reference Range Interpretation Comments GLUBED (test code = GLUBED) 147 MG/DL 70-105 H BASIC METABOLIC [id number] 09:49:00* Test Item Value Reference Range Interpretation Comments SODIUM (test code = NA) 152 mmol/L 135-145 H POTASSIUM (test code = K) 4.7 mmol/L 3.6-5.0 CHLORIDE (test code = CL) 121 mmol/L 101-111 H CARBON DIOXIDE (test code = CO2) 22 mmol/L 21-31 N GLUCOSE (test code = GLU) 94 mg/dl 70-100 N BLOOD UREA NITROGEN (test code = BUN) 88 mg/dl 6-20 H GLOMERULAR FILTRATION RATE (test code = GFR) 12 >60 L The estimated glomerular filtration rate is computed usingpatient race, age (>18), sex, and serum creatinine. If anyof the needed data elements are missing the Laboratory cannot compute an estimation of the glomerular filtration rate. CREATININE (test code = CREAT) 6.27 mg/dL 0.64-1.27 H CALCIUM (test code = CA) 8.5 mg/dL 8.5-10.5 N [id number] 06:52:00* Test Item Value Reference Range Interpretation Comments GLUBED (test code = GLUBED) 87 MG/DL 70-105 N [id number] 05:11:00* Test Item Value Reference Range Interpretation Comments GLUBED (test code = GLUBED) 76 MG/DL 70-105 N [id number] 03:11:00* Test Item Value Reference Range Interpretation Comments GLUBED (test code = GLUBED) 83 MG/DL 70-105 N [id number] 03:11:00* Test Item Value Reference Range Interpretation Comments GLUBED (test code = GLUBED) 100 MG/DL 70-105 N [id number] 03:11:00* Test Item Value Reference Range Interpretation Comments GLUBED (test code = GLUBED) 103 MG/DL 70-105 N [id number] 03:11:00* Test Item Value Reference Range Interpretation Comments GLUBED (test code = GLUBED) 114 MG/DL 70-105 H [id number] 03:11:00* Test Item Value Reference Range Interpretation Comments GLUBED (test code = GLUBED) 159 MG/DL 70-105 H [id number] 03:11:00* Test Item Value Reference Range Interpretation Comments GLUBED (test code = GLUBED) 98 MG/DL 70-105 N BASIC METABOLIC [id number] 21:01:00* Test Item Value Reference Range Interpretation Comments SODIUM (test code = NA) 150 mmol/L 135-145 H POTASSIUM (test code = K) 6.1 mmol/L 3.6-5.0 HH Cr itical Value reported toFirst Name:JAMEL Last Name:CATBAGANRESULTS READ BACK AND VERIFIEDby N.LAB.LAC, on 02/06/19, @ 2101. CHLORIDE (test code = CL) 123 mmol/L 101-111 H CARBON DIOXIDE (test code = CO2) 17 mmol/L 21-31 L GLUCOSE (test code = GLU) 122 mg/dl 70-100 H BLOOD UREA NITROGEN (test code = BUN) 92 mg/dl 6-20 H GLOMERULAR FILTRATION RATE (test code = GFR) 12 >60 L The estimated glomerular filtration rate is computed usingpatient race, age (>18), sex, and serum creatinine. If anyof the needed data elements are missing the Laboratory cannot compute an estimation of the glomerular filtration rate. CREATININE (test code = CREAT) 6.50 mg/dL 0.64-1.27 H CALCIUM (test code = CA) 8.6 mg/dL 8.5-10.5 N CBC W/AUTO [id number] 16:54:00* Test Item Value Reference Range Interpretation Comments WHITE BLOOD CELL (test code = WBC) 11.2 x10 3/uL 3.2-11.5 N CORRECTED WBC (test code = CWBC) 11.2 x10 3/uL 3.2-11.5 N | ~~ Corrected WBC Result ~~ || WBC has been corrected due to NRBC | RED BLOOD CELL (test code = RBC) 4.16 x10(6)/m 4.20-5.70 L HEMOGLOBIN (test code = HGB) 11.6 g/dL 12.9-17.3 L HEMATOCRIT (test code = HCT) 35.4 % 38.7-51.0 L MEAN CELL VOLUME (test code = MCV) 85 fL 80-100 N MEAN CELL HGB (test code = MCH) 27.9 pg 26.7-33.3 N MEAN CELL HGB CONCENTRATION (test code = MCHC) 32.8 g/dL 30.0-34 .0 N RED CELL DISTRIBUTION WIDTH (test code = RDW) 16.1 % 11.3-14. 5 H PLATELET COUNT (test code = PLT) 346 x10 3/uL 130-408 N MEAN PLATELET VOLUME (test code = MPV) 8.5 fl 6.4-10.5 N WBC [id number] 16:54:00* Test Item Value Reference Range Interpretation Comments TOTAL CELLS COUNTED (test code = TCC) 100 #CELLS SEGMENTED NEUTROPHILS (test code = SEG) 93 % 43-65 H LYMPHOCYTE (test code = LYMPH) 7 % 20.5-45.5 L BAND ABSOLUTE (test code = BAND#) 0.00 10 3/uL 0.00-0.70 N NEUTROPHIL ABSOLUTE (test code = SEG#) 10.42 10 3/uL 6.00-26.00 N LYMPH ABSOLUTE (test code = LYMPH#) 0.8 10 3/uL 2.00-17.00 L ATYPICAL LYMPH ABSOLUTE (test code = ALYMPH#) 0.00 10 3/uL 0.00-0.0 0 N MONOCYTE ABSOLUTE (test code = MON#) 0.00 10 3/uL 0.40-3.10 L BASOPHIL ABSOLUTE (test code = BASO#) 0.00 10 3/uL 0.00-0.20 N EOSINOPHIL ABSOLUTE (test code = EOS#) 0.00 10 3/uL 0.00-0.50 N METAMYELOCYTE ABSOLUTE (test code = META#) 0.00 10 3/uL 0.00-0.00 N MYELOCYTE ABSOLUTE (test code = MYELO#) 0.00 10 3/uL 0.00-0.00 N PROMYELOCYTE ABSOLUTE (test code = PROM#) 0.00 10 3/uL 0.00-0.00 N BLASTS ABSOLUTE (test code = BLAST#) 0.00 10 3/uL 0.00-0.00 N OTHER CELLS ABSOLUTE (test code = OCT#) 0.00 10 3/uL 0.00-0.00 N RBC MORPHOLOGY COMMENT (test code = MOC) Normal NORMAL COMPREHENSIVE METABOLIC [id number] 16:30:00* Test Item Value Reference Range Interpretation Comments SODIUM (test code = NA) 147 mmol/L 135-145 H POTASSIUM (test code = K) 6.4 mmol/L 3.6-5.0 HH Cr itical Value reported toFirst Name:PEREZ Last Name:VERA READ BACK AND VERIFIEDby N.LAB.LAC, on 02/06/19, @ 1630. CHLORIDE (test code = CL) 121 mmol/L 101-111 H CARBON DIOXIDE (test code = CO2) 16 mmol/L 21-31 L GLUCOSE (test code = GLU) 111 mg/dl 70-100 H BLOOD UREA NITROGEN (test code = BUN) 93 mg/dl 6-20 H GLOMERULAR FILTRATION RATE (test code = GFR) 11 >60 L The estimated glomerular filtration rate is computed usingpatient race, age (>18), sex, and serum creatinine. If anyof the needed data elements are missing the Laboratory cannot compute an estimation of the glomerular filtration rate. CREATININE (test code = CREAT) 6.67 mg/dL 0.64-1.27 H TOTAL PROTEIN (test code = PROT) 6.7 g/dL 6.7-8.2 N ALBUMIN (test code = ALB) 3.2 g/dL 3.2-5.5 N CALCIUM (test code = CA) 8.6 mg/dL 8.5-10.5 N BILIRUBIN TOTAL (test code = BILT) 0.60 mg/dL 0.2-1.3 N SGOT/AST (test code = AST) 12 U/L 10-42 N SGPT/ALT (test code = ALT) 17 U/L 10-60 N ALKALINE PHOSPHATASE (test code = ALKP) 69 U/L 42-121 N [id number] 16:30:00* Test Item Value Reference Range Interpretation Comments PHOSPHOROUS (test code = PHOS) 5.3 mg/dl 2.5-4.6 H [id number] 16:30:00* Test Item Value Reference Range Interpretation Comments MAGNESIUM (test code = MAG) 2.2 mg/dl 1.8-2.5 N PROTHROMBIN [id number] 16:10:00* Test Item Value Reference Range Interpretation Comments PROTHROMBIN TIME PATIENT (test code = PTP) 12.8 SECONDS 9.6-13.0 N INTERNATIONAL NORMAL RATIO (test code = INR) 1.1 The INR is to be used only for monitoring oral anticoagulanttherapy. INDICATION INR VALUE 1. Prophylaxis, deep venous thrombosis, 2.0 - 2.5 including high-risk surgery.2. Prophylaxis, deep venous thrombosis, 2.0 - 3.0 hip surgery, treatment for deep venous thrombosis or pulmonary prevention of systemic embolism in patients with valvular heart disease, atrial fibrillation, tissue heart valve, or acute myocardial infarction.3. Mechanical prosthesis heart valves, 3.0 - 4.5 recurrent systemic embolism. THROMBOPLASTIN TIME [id number] 16:10:00* Test Item Value Reference Range Interpretation Comments THROMBOPLASTIN TIME PARTIAL (test code = PTT) 28 SECONDS 25-37 N CBC W/AUTO [id number] 15:56:00* Test Item Value Reference Range Interpretation Comments WHITE BLOOD CELL (test code = WBC) 11.2 x10 3/uL 3.2-11.5 N RED BLOOD CELL (test code = RBC) 4.16 x10(6)/m 4.20-5.70 L HEMOGLOBIN (test code = HGB) 11.6 g/dL 12.9-17.3 L HEMATOCRIT (test code = HCT) 35.4 % 38.7-51.0 L MEAN CELL VOLUME (test code = MCV) 85 fL 80-100 N MEAN CELL HGB (test code = MCH) 27.9 pg 26.7-33.3 N MEAN CELL HGB CONCENTRATION (test code = MCHC) 32.8 g/dL 30.0-34 .0 N RED CELL DISTRIBUTION WIDTH (test code = RDW) 16.1 % 11.3-14. 5 H PLATELET COUNT (test code = PLT) 346 x10 3/uL 130-408 N MEAN PLATELET VOLUME (test code = MPV) 8.5 fl 6.4-10.5 N WBC [id number] 15:56:00* Test Item Value Reference Range Interpretation Comments TOTAL CELLS COUNTED (test code = TCC) #CELLS RBC MORPHOLOGY COMMENT (test code = MOC) NORMAL PLATELET MORPHOLOGY (test code = PLTMORPH) NORMAL CBC W/AUTO [id number] 15:56:00* Test Item Value Reference Range Interpretation Comments WHITE BLOOD CELL (test code = WBC) 11.2 x10 3/uL 3.2-11.5 N RED BLOOD CELL (test code = RBC) 4.16 x10(6)/m 4.20-5.70 L HEMOGLOBIN (test code = HGB) 11.6 g/dL 12.9-17.3 L HEMATOCRIT (test code = HCT) 35.4 % 38.7-51.0 L MEAN CELL VOLUME (test code = MCV) 85 fL 80-100 N MEAN CELL HGB (test code = MCH) 27.9 pg 26.7-33.3 N MEAN CELL HGB CONCENTRATION (test code = MCHC) 32.8 g/dL 30.0-34 .0 N RED CELL DISTRIBUTION WIDTH (test code = RDW) 16.1 % 11.3-14. 5 H PLATELET COUNT (test code = PLT) 346 x10 3/uL 130-408 N MEAN PLATELET VOLUME (test code = MPV) 8.5 fl 6.4-10.5 N WBC [id number] 15:56:00* Test Item Value Reference Range Interpretation Comments TOTAL CELLS COUNTED (test code = TCC) #CELLS RBC MORPHOLOGY COMMENT (test code = MOC) NORMAL PLATELET MORPHOLOGY (test code = PLTMORPH) NORMAL - XR CHEST 1 [id number] 15:42:00Patient Name: WERNER MAXWELL Unit No: [id number] EXAMS: CPT: [id number] XR CHEST 1 V 33721 HISTORY: RENAL FAILURE COMPARISON STUDY: 12/19/2018 CHEST 1 VIEW FINDINGS: The heart size is magnified by the AP technique. The lung volumes are low. There has been no significant change in the mild vascular congestion. Bilateral interstitial prominence is present, right greater than left. No pneumothorax is present. IMPRESSION: 1. No significant change. at 1542 Reported and signed by: Sha Kathleen MD CC: Milena Ortiz DO; Chau Lopez MD Technologist: Oliva Nolasco Fluoro Time: DAP (Gy m2): Air Kerma (mGy): Trscr Dt/Tm: 02/06/2019 (1542) by:[email or web address] Orig Print D/T: S: 02/06/2019 (1545) BATCH NO: N/A Name: WERNER MAXWELL [facility] Phys: Milena Lanier [address] : 1965 Age: 53 Sex: [place] [address] Loc: N.ERS Exam Date: 02/06/2019 Status: REG ER PH: FAX: PAGE 1 Signed Report [id number] 08:46:00* Test Item Value Reference Range Interpretation Comments GLUBED (test code = GLUBED) 111 MG/DL 70-105 H BASIC METABOLIC [id number] 05:12:00* Test Item Value Reference Range Interpretation Comments SODIUM (test code = NA) 139 mmol/L 135-145 N POTASSIUM (test code = K) 5.4 mmol/L 3.6-5.0 H CHLORIDE (test code = CL) 111 mmol/L 101-111 N CARBON DIOXIDE (test code = CO2) 20 mmol/L 21-31 L GLUCOSE (test code = GLU) 112 mg/dl 70-100 H BLOOD UREA NITROGEN (test code = BUN) 67 mg/dl 6-20 H GLOMERULAR FILTRATION RATE (test code = GFR) 16 >60 L The estimated glomerular filtration rate is computed usingpatient race, age (>18), sex, and serum creatinine. If anyof the needed data elements are missing the Laboratory cannot compute an estimation of the glomerular filtration rate. CREATININE (test code = CREAT) 4.98 mg/dL 0.64-1.27 H CALCIUM (test code = CA) 8.1 mg/dL 8.5-10.5 L [id number] 05:12:00* Test Item Value Reference Range Interpretation Comments MAGNESIUM (test code = MAG) 1.9 mg/dl 1.8-2.5 N CBC W/AUTO [id number] 05:09:00* Test Item Value Reference Range Interpretation Comments WHITE BLOOD CELL (test code = WBC) 14.7 x10 3/uL 3.2-11.5 H RED BLOOD CELL (test code = RBC) 3.92 x10(6)/m 4.20-5.70 L HEMOGLOBIN (test code = HGB) 10.8 g/dL 12.9-17.3 L HEMATOCRIT (test code = HCT) 32.4 % 38.7-51.0 L MEAN CELL VOLUME (test code = MCV) 83 fL 80-100 N MEAN CELL HGB (test code = MCH) 27.5 pg 26.7-33.3 N MEAN CELL HGB CONCENTRATION (test code = MCHC) 33.2 g/dL 30.0-34 .0 N RED CELL DISTRIBUTION WIDTH (test code = RDW) 15.0 % 11.3-14. 5 H PLATELET COUNT (test code = PLT) 459 x10 3/uL 130-408 H MEAN PLATELET VOLUME (test code = MPV) 8.2 fl 6.4-10.5 N NEUTROPHIL % (test code = NT%) 81.7 % 40.0-70.0 H LYMPHOCYTE % (test code = LY%) 6.8 % 20-40 L MONOCYTE % (test code = MO%) 11.1 % 1-10 H EOSINOPHIL % (test code = EO%) 0.0 % 1.0-5.0 L BASOPHIL % (test code = BA%) 0.4 % 0.0-1.0 N NEUTROPHIL # (test code = NT#) 12.0 x10 3/uL 1.6-7.2 H LYMPHOCYTE # (test code = LY#) 1.00 x10 3/uL 1.1-2.7 L MONOCYTE # (test code = MO#) 1.6 x10 3/uL 0.3-0.8 H EOSINOPHIL # (test code = EO#) 0.0 x10 3/uL 0.0-0.5 N BASOPHIL # (test code = BA#) 0.1 x10 3/uL 0.0-0.1 N [id number] 21:10:00* Test Item Value Reference Range Interpretation Comments GLUBED (test code = GLUBED) 125 MG/DL 70-105 H [id number] 17:47:00* Test Item Value Reference Range Interpretation Comments GLUBED (test code = GLUBED) 162 MG/DL 70-105 H [id number] 12:41:00* Test Item Value Reference Range Interpretation Comments GLUBED (test code = GLUBED) 100 MG/DL 70-105 N [id number] 12:41:00* Test Item Value Reference Range Interpretation Comments GLUBED (test code = GLUBED) 151 MG/DL 70-105 H CBC W/AUTO [id number] 07:06:00* Test Item Value Reference Range Interpretation Comments WHITE BLOOD CELL (test code = WBC) 10.2 x10 3/uL 3.2-11.5 N CORRECTED WBC (test code = CWBC) 10.2 x10 3/uL 3.2-11.5 N | ~~ Corrected WBC Result ~~ || WBC has been corrected due to NRBC | RED BLOOD CELL (test code = RBC) 3.83 x10(6)/m 4.20-5.70 L HEMOGLOBIN (test code = HGB) 10.7 g/dL 12.9-17.3 L HEMATOCRIT (test code = HCT) 31.9 % 38.7-51.0 L MEAN CELL VOLUME (test code = MCV) 83 fL 80-100 N MEAN CELL HGB (test code = MCH) 27.9 pg 26.7-33.3 N MEAN CELL HGB CONCENTRATION (test code = MCHC) 33.5 g/dL 30.0-34 .0 N RED CELL DISTRIBUTION WIDTH (test code = RDW) 14.7 % 11.3-14. 5 H PLATELET COUNT (test code = PLT) 436 x10 3/uL 130-408 H MEAN PLATELET VOLUME (test code = MPV) 8.2 fl 6.4-10.5 N WBC [id number] 07:06:00* Test Item Value Reference Range Interpretation Comments TOTAL CELLS COUNTED (test code = TCC) 100 #CELLS SEGMENTED NEUTROPHILS (test code = SEG) 90 % 43-65 H LYMPHOCYTE (test code = LYMPH) 9 % 20.5-45.5 L MONOCYTE (test code = MON) 1 % 5.5-11.7 L BAND ABSOLUTE (test code = BAND#) 0.00 10 3/uL 0.00-0.70 N NEUTROPHIL ABSOLUTE (test code = SEG#) 9.18 10 3/uL 6.00-26.00 N LYMPH ABSOLUTE (test code = LYMPH#) 0.9 10 3/uL 2.00-17.00 L ATYPICAL LYMPH ABSOLUTE (test code = ALYMPH#) 0.00 10 3/uL 0.00-0.0 0 N MONOCYTE ABSOLUTE (test code = MON#) 0.10 10 3/uL 0.40-3.10 L BASOPHIL ABSOLUTE (test code = BASO#) 0.00 10 3/uL 0.00-0.20 N EOSINOPHIL ABSOLUTE (test code = EOS#) 0.00 10 3/uL 0.00-0.50 N METAMYELOCYTE ABSOLUTE (test code = META#) 0.00 10 3/uL 0.00-0.00 N MYELOCYTE ABSOLUTE (test code = MYELO#) 0.00 10 3/uL 0.00-0.00 N PROMYELOCYTE ABSOLUTE (test code = PROM#) 0.00 10 3/uL 0.00-0.00 N BLASTS ABSOLUTE (test code = BLAST#) 0.00 10 3/uL 0.00-0.00 N OTHER CELLS ABSOLUTE (test code = OCT#) 0.00 10 3/uL 0.00-0.00 N RBC MORPHOLOGY COMMENT (test code = MOC) Normal NORMAL PLATELET MORPHOLOGY (test code = PLTMORPH) NORMAL NORMAL BASIC METABOLIC [id number] 06:50:00* Test Item Value Reference Range Interpretation Comments SODIUM (test code = NA) 139 mmol/L 135-145 N POTASSIUM (test code = K) 5.2 mmol/L 3.6-5.0 H CHLORIDE (test code = CL) 110 mmol/L 101-111 N CARBON DIOXIDE (test code = CO2) 19 mmol/L 21-31 L GLUCOSE (test code = GLU) 131 mg/dl 70-100 H BLOOD UREA NITROGEN (test code = BUN) 71 mg/dl 6-20 H GLOMERULAR FILTRATION RATE (test code = GFR) 15 >60 L The estimated glomerular filtration rate is computed usingpatient race, age (>18), sex, and serum creatinine. If anyof the needed data elements are missing the Laboratory cannot compute an estimation of the glomerular filtration rate. CREATININE (test code = CREAT) 5.25 mg/dL 0.64-1.27 H CALCIUM (test code = CA) 7.9 mg/dL 8.5-10.5 L [id number] 06:50:00* Test Item Value Reference Range Interpretation Comments PHOSPHOROUS (test code = PHOS) 3.3 mg/dl 2.5-4.6 N CBC W/AUTO [id number] 06:44:00* Test Item Value Reference Range Interpretation Comments WHITE BLOOD CELL (test code = WBC) 10.2 x10 3/uL 3.2-11.5 N RED BLOOD CELL (test code = RBC) 3.83 x10(6)/m 4.20-5.70 L HEMOGLOBIN (test code = HGB) 10.7 g/dL 12.9-17.3 L HEMATOCRIT (test code = HCT) 31.9 % 38.7-51.0 L MEAN CELL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 DEPMMSXPTTSF7114-05-84 10:45:003.5[facility] IgjusinJRKUKFNRAGXL7855-61-42 10:45:46351Tmwuemhd BkqkygqFMZOQKVUSGRW6720-14-40 10:45:0022[facility] PKXZXLJADHPA5975-69-58 10:45:008.8[facility] QtuqvozYAIECRDXBWPT5205-57-67 10:45:0090[facility] TmzmlyvQSKVCMVFVNKS6854-59-00 10:45:0025[facility] PCNXMRLFJKNP1986-36-44 10:45:002.81[facility] DpzalmgLSAKGGYBKLQM8757-54-37 10:45:0025[facility] HcoxhdqXOHJHCEZPR6390-54-73 10:45:007.3[facility] GXLRQFJIWK5087-27-50 10:45:0021.6[facility] BrzzflfNBOASSKVMX2295-50-92 10:45:00 635[facility] DhyabdgWWNUUQUYJN5980-61-10 10:45:00* Test Item Value Reference Range Interpretation Comments MCH (test code = MCH) 26.1 pg 27.0-31.0 [facility] EobusikHZLFNHOESH1229-55-51 10:45:0032.5[facility] HermannHEMATOLOGY 2016-05-24 10:45:0029.3[facility] KdhdvpjBAKYDCSIPN7278-15-52 10:45:0080.4[facility] HonpiwnOFVGAMKMHM5469-63-31 10:45:003.64[facility] RdnduiaGUEGMIFMDB8622-66-06 10:45:009.5[facility] WzofsinJNLLDCFURF6099-67-51 10:45:0010.0[facility] SQHIZKNCBQ7869-58-65 10:45:009.1[facility] JomnifzYISIFCSSZA9577-79-22 10:45:007.5 [facility] LnttrxeXQXITNFPEK0973-63-09 10:45:0015.1[facility] HermannHEMATOLOGY 2016-05-24 10:45:0066.6[facility] BlfvkcbTIBKZSRTPW9540-61-89 10:45:001.7[facility] AufbnoxUGYONTVEGL3561-44-77 10:45:006.7[facility] NudtxonRIFMXQQFAE9514-52-45 10:45:000.7[facility] LbqzjbmYCUETSOUUA4873-78-00 10:45:000.9[facility] LKPFMKYXOT0255-89-64 10:45:001.5[facility] QphekquCNTOINOWEP1203-25-48 10:45:000.2 [facility] MzkmlbtDIPSTXWPUC6641-58-04 10:45:0018.2[facility] HermannTOXICOLOGY 2016-05-23 10:01:0018.8[facility] HermannCHEM UGAIE0585-68-69 10:17:000.16[facility] BqehxhcKRUZDGDDRC3537-92-74 10:17:007.3[facility] XosytyxRSDJNLHARW9997-25-66 10:17:00* Test Item Value Reference Range Interpretation Comments MCH (test code = MCH) 25.3 pg 27.0-31.0 [facility] UzfgssyCADMODZDWA4095-86-53 10:17:0031.2[facility] HermannHEMATOLOGY 2016-05-22 10:17:91409Flpwzhlh UvdkhajQLBXODYAAI9380-80-53 10:17:0021.6[facility] VgvocrbZOTNVIXZBL2244-38-60 10:17:0080.9[facility] OdqsalxQHPWAPCKOZ6484-02-94 10:17:0028.6[facility] KflkjcpPENUJSNGEC5873-38-79 10:17:008.9[facility] MWVZEJGDEY6938-38-90 10:17:003.54[facility] BhkfuogZKSYTWQVCC6298-69-31 10:17:00 8.9[facility] KtgvcnqQZNSHNFWBC4650-06-00 10:17:000.2[facility] HermannHEMATOLOGY 2016-05-22 10:17:000.9[facility] OvpefwmTBGNUBJBYZ0914-48-03 10:17:0010.1[facility] BxxzabaYNQGDORZDE5731-36-39 10:17:005.4[facility] PrwxyueNFHEXEUQQM0287-57-76 10:17:001.9[facility] HucekhoEEWNRVTVAW3950-17-28 10:17:000.9[facility] ITHYVFRAVR2019-71-34 10:17:001.6[facility] AalvmzdDBMVOFWGLT9302-65-28 10:17:009.6 [facility] ZrsbpayNZRDUFXLYI6178-73-04 10:17:0017.6[facility] HermannHEMATOLOGY 2016-05-22 10:17:0060.8[facility] CoehsyyQHZSQNDQCJ1936-24-59 10:17:00Normal (05/22/16 4:17 AM)[facility] BdmsxdaPAOCJJRJZP4398-91-35 10:17:00Normal (05/22/16 4:17 AM)[facility] ZefaxvuWGYBRURNOM4691-90-89 10:17:0043.6[facility] HEHYBVIVTO0411-90-76 11:47:007.3[facility] HcdeslaMVRRUAPUDM1902-45-11 11:47:00 4.06[facility] EmhdyfuBDBTXSDGMF7937-44-71 11:47:0010.2[facility] HermannHEMATOLOGY 2016-05-21 11:47:0010.2[facility] RaifxuoRJALSPUEPN2724-18-94 11:47:12230Njpbkxfz BcgkgcbRLKPBRZKJC6852-30-19 11:47:0022.3[facility] IhdyfqhUKROEFYWIX2719-77-06 11:47:0031.2[facility] GgmyjmbAOCBCMHCGY0519-16-10 11:47:0080.6[facility] DISCBMNLJO3850-05-13 11:47:00* Test Item Value Reference Range Interpretation Comments MCH (test code = MCH) 25.1 pg 27.0-31.0 [facility] PfgetgxGTMJDYQZPO8911-16-63 11:47:0032.7[facility] HermannHEMATOLOGY 2016-05-21 11:47:000.1[facility] TqhfeqtYXWNIHQXGY6065-84-81 11:47:007.7[facility] WhnouoeTRACDCIZQS4418-16-42 11:47:001.4[facility] MhpfhbsEOBLYAMFKE0890-46-27 11:47:000.6[facility] ZmcyykmKGMHCUTKUM6590-83-20 11:47:000.5[facility] HHULIMOKCA5767-40-10 11:47:004.5[facility] WvgkhmmYSIPQVBWLB6577-41-77 11:47:001.2 [facility] LjeiaykTWJJKQMUGE5451-99-24 11:47:0013.3[facility]annHEMATOLOGY 2016-05-21 11:47:0074.9[facility] XpbovlbOEMNKPWPJP6031-56-51 11:47:006.1[facility] LonekriEOFWXTLYQU9534-33-60 11:43:00Normal (05/20/16 5:43 AM)[facility] BBEVVGRHGW8162-25-75 11:43:00Normal (05/20/16 5:43 AM)[facility]annIMMUNOLOGY 2016-05-20 11:43:0022.1[facility]annCHEM SNKKF5239-60-57 10:53:000.8[facility]annDRUG LYYPXH9860-22-84 19:33:00See Note (05/19/16 1:33 PM)[facility] WMFCKK7925-75-17 19:33:00Negative *NA*(05/19/16 1:33 PM)[facility] IXZDCA6012-76-80 19:33:00Negative *NA*(05/19/16 1:33 PM)[facility] YJSUOJ9850-86-59 19:33:00Negative *NA*(05/19/16 1:33 PM)[facility] ZVTKJO1458-50-10 19:33:00Negative *NA*(05/19/16 1:33 PM)[facility] XNCVRW0770-49-37 19:33:00Negative *NA*(05/19/16 1:33 PM)[facility] WUDHMK7563-85-03 19:33:00Negative *NA*(05/19/16 1:33 PM)[facility] XACCJC3678-87-48 19:33:00Negative *NA*(05/19/16 1:33 PM)[facility] MULGOJ7926-60-72 19:33:00Negative *NA*(05/19/16 1:33 PM)[facility] JHBWKI1895-14-85 19:33:00Negative *NA*(05/19/16 1:33 PM)[facility] URINE AND PXAMW2917-76-40 19:33:007[facility] TEZJC4702-69-24 19:33:00Negative (05/19/16 1:33 PM)[facility] FSMGI2334-94-78 19:33:00Negative (05/19/16 1:33 PM)[facility] CKADK9923-71-05 19:33:001[facility] KSBYP4012-22-92 19:33:00Clear (05/19/16 1:33 PM)[facility] DRNHK1031-37-87 19:33:00Light Yellow *NA*(05/19/16 1:33 PM)[facility] WSOUB9605-77-78 19:33:00Moderate *ABN*(05/19/16 1:33 PM)[facility] BTKJN1585-71-86 19:33:00 Negative *NA*(05/19/16 1:33 PM)[facility] IAYSQ8329-91-63 19:33:001.009[facility] HVXVR4182-03-79 19:33:006.0[facility]annCHEM MXUIR7281-92-10 11:14:004.5[facility]annCHEM PLEHH9088-13-65 11:14:002.2[facility]annCARDIAC HBESFRS9677-08-00 03:04:002.5[facility] CARDIAC SRRTVWP3973-87-00 03:04:000.04[facility]annCARDIAC QFZEMFP0696-72-77 03:04:001.4[facility]annCARDIAC JAZYWVU2176-57-21 03:04:0057[facility] CARDIAC CGQLGII5998-86-85 03:04:0047[facility]annCHEM YDSGX8505-50-16 03:04:0011[facility]annCHEM DCZTN4959-45-59 03:04:000.5[facility]annCHEM UMWOW7130-12-71 03:04:005.9[facility]annCHE[facility] EGKDV5001-56-69 03:04:48586 [facility]annCHE[facility] VNVOA5848-23-89 03:04:000.2[facility]annCHEM PANEL 2016-05-19 03:04:003.0[facility]annCHEM HDDBQ1560-65-15 03:04:008[facility]annCHEM WHNJI5036-40-16 03:04:008[facility]annCHEM WFHFB5713-43-56 03:04:008.9[facility]annCHEM OCPLU3383-19-56 03:04:001.2[facility]annCHEM YXNUF7072-85-02 03:04:000.21[facility] CfdeufrXZTKIRQSSJ5965-55-89 03:04:00* Test Item Value Reference Range Interpretation Comments PTT (test code = PTT) 32.2 s 22.9-35.8 [facility] AicvqykSLUVOHZDAY9511-55-31 03:04:00* Test Item Value Reference Range Interpretation Comments PT (test code = PT) 14.3 s 12.0-14.7 [facility] FwzvqttGFQXHBZDNO6992-31-49 03:04:001.09[facility]annIMMUNOLOGY 2016-05-19 03:04:47620.0[facility]annCHEM DGBPH3643-56-95 08:51:008.9[facility]annCHEM EOIBH4204-12-66 08:51:24455Zozhvogv HermannCHEM MQDCP7370-18-08 08:51:003.7[facility]annCHEM JWJIO3863-89-85 08:51:79581Jdgtxzme HermannCHEM NEMZD2667-96-79 08:51:003.15[facility]annCHEM UUXZL7784-76-09 08:51:0036 [facility]annCHE[facility] EISFO5236-71-62 08:51:0082[facility]annCHEM PANEL 2016-04-28 08:51:0017.7[facility]annCHEM RJYYO5276-30-47 08:51:0019[facility]annCHEM GOCHS8373-66-16 08:51:0022[facility] RbvmirwENOBTABKFRRI5550-58-14 09:10:0016.8[facility] SnttipeYJHLSVPTEAKJ6965-74-62 09:10:009.1[facility] LORVSMDPVTAG2096-75-94 09:10:0022[facility] AawyfxhHHUDUIQVPSJW2240-79-00 09:10:00 3.8[facility] XjpfwgmUAFLXBNHIHSL0367-16-36 09:10:0039[facility] HermannELECTROLYTES 2016-04-27 09:10:24655Lneyeekd GgkzhayHZXUGCRQRARJ8930-46-62 09:10:43890Menkcazt RjukjxvHXNOWWTZWHAS8022-01-67 09:10:0090[facility] XgbmstwPECQIZUKRXPG2205-67-92 09:10:003.07[facility] CuheoteUPKVVCLABOUZ9417-43-27 09:10:0022[facility] IMHBGQFGPA8996-39-01 09:10:0010.3[facility] LglgwdqDAAMVPGSOZ4810-88-86 09:10:00 0.6[facility] TcmuqvjCEPUNELYBK8420-96-46 09:10:001.5[facility]annHEMATOLOGY 2016-04-27 09:10:000.1[facility] EzcvdlhUUJRXPPYVH6764-41-14 09:10:000.3[facility] YqxmxpqBHAZHBKNAY1302-48-83 09:10:001+ *ABN*(04/27/16 4:10 AM)[facility] NWKETPDIZT4078-36-65 09:10:001.9[facility] MbgfyygNAPPOODFHF6012-05-58 09:10:006.8 [facility] MoewwdqLQEFZJPQXE5996-50-90 09:10:000.9[facility]annHEMATOLOGY 2016-04-27 09:10:00Normal (04/27/16 4:10 AM)[facility] GhignayVRKCGOIMUD2397-85-74 09:10:0011.6[facility] LlxevveHBPSNYMDII2506-77-15 09:10:0079.1[facility] KQYUKLJXKC5654-55-72 09:10:0013.1[facility] JixltprTVVOPHOVAG1189-15-44 09:10:00 26.4[facility] GlcqsgmSFHIZRQPBN3414-57-07 09:10:0077.1[facility]annHEMATOLOGY 2016-04-27 09:10:003.42[facility] VmxjkeoZKQSYMJAIX8215-33-66 09:10:008.6[facility] HjerlxbRBNEYRAUGW6527-09-19 09:10:96639Dqtllohs NcruahuOWUZSOWUFW8691-31-98 09:10:00* Test Item Value Reference Range Interpretation Comments MCH (test code = MCH) 25.1 pg 27.0-31.0 [facility] JkladoiVGUVJRCXRK2737-50-14 09:10:0018.5[facility]annHEMATOLOGY 2016-04-27 09:10:006.0[facility] NuihzacWKMLGMVRBY1641-52-23 09:10:0032.6[facility] HermannDRUG SJQJKA0230-16-21 22:34:00Negative *NA*(04/26/16 5:34 PM)[facility]annDR[facility] EWAWNR4987-13-94 22:34:00Negative *NA*(04/26/16 5:34 PM)[facility]annDR[facility] DYGUFB4887-30-63 22:34:00Negative *NA*(04/26/16 5:34 PM)[facility]annDR[facility] HFLCYJ8097-35-77 22:34:00Negative *NA*(04/26/16 5:34 PM)[facility]annDR[facility] QKMKIQ7640-40-75 22:34:00Positive *ABN*(04/26/16 5:34 PM)[facility]annDR[facility] IYAQPH2926-73-10 22:34:00See Note (04/26/16 5:34 PM)[facility] QUZRNB1726-57-61 22:34:00Negative *NA*(04/26/16 5:34 PM)[facility] QMIEHT5054-52-60 22:34:00Positive *ABN*(04/26/16 5:34 PM)[facility] CARDIAC REIWWNZ3688-64-59 21:26:001.4[facility] HermannCARDIAC AQESXIA3632-70-62 21:26:002.1[facility]annCARDIAC CEGBHSQ8407-82-57 21:26:000.02[facility]annCARDIAC HDQPZKG5196-13-84 21:26:23990Bubdjmgr HermannCHEM LPZSQ0816-56-18 21:26:0044[facility]annCHEM TOYFD7534-38-46 21:26:003.32[facility] HermannCHEM QKVNS7693-69-17 21:26:0021[facility]annCHEM UTVQA1114-48-82 21:26:009.2 [facility]annCHEM QDSDT1391-37-38 21:26:0018[facility]annCHEM PANEL 2016-04-26 21:26:0090[facility] HermannCHEM WNGHX3724-21-75 21:26:0020[facility]annCHEM UZOTB8981-00-11 21:26:0018.4[facility] HermannCHEM AENRA1177-25-47 21:26:0013[facility]annCHEM NZKHR6566-62-61 21:26:006.1[facility]annCHEM PWRET3578-99-97 21:26:000.5[facility]annCHEM BSCIU2102-47-82 21:26:0014 [facility]annCHEM IEZXP4811-17-24 21:26:08402Griyxfur HermannCHEM PANEL 2016-04-26 21:26:000.2[facility] HermannCHEM WORTU3318-61-38 21:26:004.4[facility] HermannCHEM CECRS1713-69-16 21:26:54870Vnifdnhr HermannCHEM KNIFC1725-44-57 21:26:14250Noapxanb HermannCHEM CGPOZ0405-15-69 21:26:003.1[facility] HermannCHEM QCCAW4157-37-81 21:26:009.3[facility] ScuvfsuQQCHQNWQYT8270-78-19 21:26:001+ *ABN*(04/26/16 4:26 PM)[facility] JrjeerqMDCTCKNQSJ1346-63-27 21:26:0078.2[facility] MsfgevwDHSPAQBENO1165-37-96 21:26:000.7[facility] FxbtdaxKBEAMOHUKR7314-16-31 21:26:0013.9[facility] AilufbyLDEECFWVNS3632-97-45 21:26:004.7[facility] WPULHIJYKD1070-88-33 21:26:0014.3[facility] WbywicnDGBNIMIUAL8442-49-42 21:26:00 2.5[facility] HkzhimvHYEYRDZWIS1945-88-21 21:26:002.1[facility]annHEMATOLOGY 2016-04-26 21:26:000.8[facility] WhyukgeFVLLXFGJVZ6323-23-55 21:26:000.4[facility] FreooudAILOZXHKXH4072-80-95 21:26:000.1[facility] QrlkhtnXLSMSRWNLI5688-51-42 21:26:00* Test Item Value Reference Range Interpretation Comments PTT (test code = PTT) 34.5 s 22.9-35.8 [facility] VojowqaXETWTCSDGT4473-09-32 21:26:008.7[facility]annHEMATOLOGY 2016-04-26 21:26:003.49[facility] PjvnisuAJJQWEBQSK9435-31-54 21:26:0027.1[facility] JlareqkMDCLOVCPQP6519-12-63 21:26:0017.8[facility] GhluisjDWXWFANSCC5924-33-70 21:26:0032.2[facility] IfxjkqaFGOWVHKWZC7219-09-78 21:26:00* Test Item Value Reference Range Interpretation Comments MCH (test code = MCH) 25.0 pg 27.0-31.0 [facility] LvxrpefPMQZMERXKN6222-66-93 21:26:0077.7[facility] HermannHEMATOLOGY 2016-04-26 21:26:006.2[facility] VxqbabxHVMQHKKPDQ4573-07-44 21:26:85013Vccqhmfq CqwlqedLZZROBEVLG7281-45-02 21:26:0018.6[facility] FxfuwrtBRVGYZDNOO2619-19-60 21:26:00* Test Item Value Reference Range Interpretation Comments PT (test code = PT) 14.2 s 12.0-14.7 [facility] TwtbznzGAWSDAFVXR3880-59-85 21:26:001.08[facility]annHEMATOLOGY 2016-04-20 12:14:00* Test Item Value Reference Range Interpretation Comments PTT (test code = PTT) 61.4 s 22.9-35.8 [facility]annUR[facility] HKFA2005-21-31 11:15:00None Seen (04/20/16 6:15 AM) [facility] EANN6199-80-25 11:15:0020.80[facility] CHEM 2016-04-20 11:15:0087[facility] LljxnwgRMVZNEGSHRWW5912-51-39 06:40:0014.8[facility] FoztvkrGNHNSAPMYYOK0037-68-93 06:40:94287Ecyhdlmm SrnakihDYARVLZVQKAP4523-90-89 06:40:0022[facility] PxxzkaqTQKLEOIOPUGX3088-39-02 06:40:008.5[facility] AKJHECOFUZPJ6982-78-29 06:40:002.1[facility] FmqpujiUBIVKSIXKBVG5197-86-30 06:40:003.8[facility] IwckojpDMEWQSXRQHFY9150-03-58 06:40:0029[facility] PLXLNQRXGNOK8775-98-28 06:40:07443Qmqrlvvw XkjtopuJEIBSZHXFYHK7910-07-18 06:40:0093[facility] NrqnhcsXINJIEKMSWXI0193-31-23 06:40:004.3[facility] OJVEPOOWIHSF0702-90-25 06:40:002.76[facility] DpcbobdLHTQFAFZOIMP8066-38-16 06:40:0025[facility] AjorfaiBREFLIGXVF2180-04-71 06:40:00* Test Item Value Reference Range Interpretation Comments PTT (test code = PTT) 44.0 s 22.9-35.8 [facility] WiyxnxaHODCDEEQDD4930-77-66 06:40:000.2[facility] HermannHEMATOLOGY 2016-04-20 06:40:000.8[facility] KytzolbMAGBHRZOUV2075-44-16 06:40:001+ *ABN*(04/20/16 1:40 AM)[facility] TqgnjbvMBQKDJLYRB3417-64-94 06:40:001.1[facility] HiqteeyDRFIHGDQIV3051-20-82 06:40:002.0[facility] EzcnsmgFRSQUZTRKN4682-68-31 06:40:0011.1[facility] YrpmjzxAZCRIPDLUP9457-27-39 06:40:001.0[facility] CWAGREKSRA1836-56-61 06:40:007.3[facility] HnuyiyzPTVBOINMMO3665-65-60 06:40:005.1 [facility] DpxcnzdHTZONRSRXG6722-47-38 06:40:0013.3[facility] HermannHEMATOLOGY 2016-04-20 06:40:0073.3[facility] CuqxaaeEREXNUYXID3534-63-99 06:40:00Clumped (04/20/16 1:40 AM)[facility] AcjuajuVVDJVYETNW1398-48-00 06:40:59940Ioytwqqm EwwzuodVVGZGBBJGX4836-91-73 06:40:006.5[facility] UknvsozWMWJIZAMYV8547-48-96 06:40:0017.2[facility] HuhtrnfYLJGPEYSHY0738-48-33 06:40:0031.4[facility] AEBPDSYVWG0776-23-38 06:40:0076.3[facility] MkiqxuzRPWESJKSNI3987-91-23 06:40:00* Test Item Value Reference Range Interpretation Comments MCH (test code = MCH) 23.9 pg 27.0-31.0 [facility] DnmsjsyYGLYJGHDUJ7059-01-57 06:40:008.3[facility] HermannHEMATOLOGY 2016-04-20 06:40:0026.5[facility] CrzcrrdMGKBQVETQP8004-49-99 06:40:0015.2[facility] RdojbzsRXGORGYDPK2602-65-24 06:40:003.47[facility] VkajnvnBDGANBJSMV3976-47-27 00:32:00* Test Item Value Reference Range Interpretation Comments PTT (test code = PTT) 57.7 s 22.9-35.8 [facility] LwkgmpeWSMUVQEURI9527-55-54 17:50:00* Test Item Value Reference Range Interpretation Comments PTT 1:1 Imm (test code = PTT 1:1 Imm) 40.5 s [facility] OhmjuhrMDVGJLUYLB9728-99-58 17:50:00* Test Item Value Reference Range Interpretation Comments PTT Baseline (test code = PTT Baseline) 48.9 s 22.9-35.8 [facility] FnogkkhPUUZWDALEI2982-13-90 17:50:00* Test Item Value Reference Range Interpretation Comments TT Baseline (test code = TT Baseline) 16.0 s 15.0-21.1 [facility]annCHEM QPBAR6666-22-63 09:45:004.0[facility] HermannCHEM PANEL 2016-04-19 09:45:0030[facility] HermannCHEM HAESU6828-84-91 09:45:002.37[facility]annCHEM FQONZ9303-18-13 09:45:002.0[facility]annCHEM QWYCS8393-69-94 09:45:0023[facility]annCHEM ZFJKV2187-28-31 09:45:003.5[facility]annCHEM GVONE9895-43-53 09:45:61878Kmowdsdk HermannCHEM MEODO6188-97-09 09:45:0028 [facility]annCHEM AHDDQ2851-45-73 09:45:69351Wsboiiqf HermannCHEM PANEL 2016-04-19 09:45:0097[facility] HermannCHEM BHYNS8805-54-46 09:45:008.8[facility] HermannCHEM LPDKL6201-30-31 09:45:0015.5[facility]annCHEM JGBHU2719-63-17 09:45:004.0[facility]annCHEM IDPKW5725-76-69 09:45:001.6[facility] NUDCAJDCRH0183-83-03 09:45:007.6[facility] OzdrhvkRBVXKXGHYH5286-46-44 09:45:005.7 [facility] RsdwldlARUHSYHEJQ2831-15-35 09:45:001.0[facility] HermannHEMATOLOGY 2016-04-19 09:45:0072.5[facility] DvyxhjsUACMNRCXSR3283-97-59 09:45:0013.2[facility] FybdsfzOIVFKWGAQW2133-82-81 09:45:001+ *ABN*(04/19/16 4:45 AM)[facility] ECZPHIXWLR6100-38-42 09:45:000.2[facility] NrjechvFLSDQNWMZQ7434-65-97 09:45:000.9 [facility] VomaomcMYGBUBTCYK0981-54-59 09:45:002.1[facility]annHEMATOLOGY 2016-04-19 09:45:001.2[facility] CjotbioOFVBJYGPXN8223-53-49 09:45:0011.5[facility] AoemoieVYIUBQUMQO0735-82-82 09:45:006.8[facility] TmbotuiQADCIQHXEC7417-25-23 09:45:55558Jucoszxs IgypicyWRVJSLQPKB4934-20-40 09:45:0031.8[facility] USYEKSQRVU4719-72-05 09:45:00* Test Item Value Reference Range Interpretation Comments MCH (test code = MCH) 24.2 pg 27.0-31.0 [facility] RgxuohkBSPGPXKKIS8150-27-07 09:45:0016.7[facility] HermannHEMATOLOGY 2016-04-19 09:45:0023.8[facility] XhrlpbzPRIXOCKUZX3000-96-84 09:45:007.6[facility] DspmjicLHPKYIJVPU2872-08-91 09:45:0075.9[facility] QdmfyceAFWMZWQQPY5647-92-28 09:45:003.13[facility] JdagtxsXXOSOKNQZF6709-81-16 09:45:0015.9[facility] CHEM BOFAX1808-19-93 12:20:0033[facility] HermannCHEM ZJZMS3908-85-60 12:20:002.22 [facility]annCHEM MNUWS1667-02-33 12:20:008.5[facility] HermannCHEM PANEL 2016-04-18 12:20:04252Hlfeeefx HermannCHEM YSACK3756-81-48 12:20:003.9[facility] HermannCHEM ZSQXN6409-78-47 12:20:0024[facility] HermannCHEM UMIQX5194-36-27 12:20:32326Gflkptjo HermannCHEM DBCGD1296-97-14 12:20:0027[facility] HermannCHEM JUNZU9147-06-47 12:20:0096[facility]annCHEM KMVNF0633-32-99 12:20:0013.9 [facility]annCHEM EEXZV1990-43-33 12:20:001.6[facility]annHEMATOLOGY 2016-04-18 12:20:00* Test Item Value Reference Range Interpretation Comments MCH (test code = MCH) 23.8 pg 27.0-31.0 [facility] IfpqhyyGYJQUHERIE3179-79-03 12:20:0031.0[facility] HermannHEMATOLOGY 2016-04-18 12:20:0016.8[facility] PevvbbrVBHVUPAPPU6846-49-86 12:20:78116Epyqswog YvaqovcDWIUCDEORC1485-22-80 12:20:0076.8[facility] SptcikgOHSBHISCOQ9166-77-87 12:20:003.57[facility] NslzrnoFVROUCOBNA5140-97-96 12:20:0027.4[facility] DRRUKNXERW8221-91-19 12:20:0015.1[facility] BohaelfEFNLYHLDVI9052-88-80 12:20:00 8.5[facility] MaksxrsLDAQPJBWPC6779-37-61 12:20:006.6[facility]annHEMATOLOGY 2016-04-18 12:20:00* Test Item Value Reference Range Interpretation Comments PT (test code = PT) 13.2 s 12.0-14.7 [facility] RlzqubaIZUYTZXJAM5389-00-32 12:20:000.98[facility]annHEMATOLOGY 2016-04-18 12:20:001+ *ABN*(04/18/16 7:20 AM)[facility]annHEMATOLOGY 2016-04-18 12:20:000.2[facility] WgahfkqEQXKNOYUUH2139-04-48 12:20:000.8[facility] KolrtvaTCBTWAPWBK5073-56-21 12:20:001.0[facility] NmpdouhNEGKSCYIYN0500-82-58 12:20:005.1[facility] EghvjffJLXJVGQEYA6582-87-66 12:20:0073.9[facility] UIRHFCFXHH0788-38-44 12:20:001.2[facility] KfbnareETMDESDHUM2119-02-75 12:20:00 11.2[facility] NhacxlhOZINSLPAFM8371-49-08 12:20:002.0[facility] HermannHEMATOLOGY 2016-04-18 12:20:0013.5[facility] NqmylauUSAAFQTGPI1773-18-72 12:20:006.3[facility]annURINE DZQV5814-58-41 02:00:000-2 *ABN*(04/17/16 9:00 PM)[facility] URINE THDB7433-21-46 02:00:0022.90[facility]annURINE UXYO9529-31-55 02:00:00 112[facility]annCARDIAC XLSFRMC5754-89-54 07:23:0039[facility]annCARDIAC XBXNFTG7584-31-33 07:23:000.09[facility] HermannCARDIAC OBLAYZS7427-07-63 07:23:00 <0.5[facility] HermannCHEM VJQRO6426-15-86 07:23:001.7[facility]annCHEM PANEL 2016-04-17 07:23:002.0[facility] NbarvwsFTVDXUKAHZ0046-66-88 07:23:00Normal (04/17/16 2:23 AM)[facility] KjuiwheSTXYFPJQUY9720-89-31 07:23:00Normal (04/17/16 2:23 AM)[facility]annBLOOD BANK NRHTHUF0243-00-13 15:56:00Negative (04/16/16 10:56 AM)[facility]annBL[facility]OD BANK TZPVWRG2669-24-53 14:54:00Product available (04/16/16 9:54 AM)[facility]annCARDIAC FVNSACG7225-92-45 14:11:000.09[facility] HermannCARDIAC JXCGZJN5813-80-89 14:11:000.7[facility] HermannCARDIAC ENZYMES 2016-04-16 14:11:0039[facility]annURINE AND NPSPB2726-98-19 14:11:00Moderate *ABN*(04/16/16 9:11 AM)[facility] AND RBEZV2344-71-48 14:11:005.0 [facility] AND RDTZF9093-82-13 14:11:00Negative *NA*(04/16/16 9:11 AM)[facility] AND HMOIZ0456-46-20 14:11:001.012[facility]annUR[facility] AND MEILH5526-10-43 14:11:00Clear (04/16/16 9:11 AM)[facility] HOQNF6356-35-12 14:11:00Negative (04/16/16 9:11 AM)[facility] GAFDD7328-55-53 14:11:00Negative (04/16/16 9:11 AM)[facility] AND FEORP5326-99-52 14:11:005[facility]UR[facility] AND TWGZV8713-20-64 14:11:001 [facility] AND SHNFW7533-65-74 14:11:0014[facility] HermannDRUG SCREEN 2016-04-16 11:27:00Negative *NA*(04/16/16 6:27 AM)[facility]annDRUG SCREEN 2016-04-16 11:27:00Negative *NA*(04/16/16 6:27 AM)[facility]annDRUG SCREEN 2016-04-16 11:27:00Negative *NA*(04/16/16 6:27 AM)[facility]annDRUG SCREEN 2016-04-16 11:27:00Negative *NA*(04/16/16 6:27 AM)[facility]annDRUG SCREEN 2016-04-16 11:27:00See Note (04/16/16 6:27 AM)[facility]annDRUG SCREEN 2016-04-16 11:27:00Negative *NA*(04/16/16 6:27 AM)[facility]annDRUG SCREEN 2016-04-16 11:27:00Negative *NA*(04/16/16 6:27 AM)[facility]annDRUG SCREEN 2016-04-16 11:27:00Negative *NA*(04/16/16 6:27 AM)[facility]annDRUG SCREEN 2016-04-16 11:27:00Positive *ABN*(04/16/16 6:27 AM)[facility]annDRUG SCREEN 2016-04-16 11:27:00Negative *NA*(04/16/16 6:27 AM)[facility]annCHEM PANEL 2016-04-16 10:58:001.1[facility] HermannCHEM CZQPQ5062-62-45 10:58:0022[facility]annCHEM GSFML1193-91-70 10:58:0011[facility]annCHEM HFINW5989-41-52 10:58:000.1[facility]annCHEM NQXBQ2664-03-06 10:58:99769Dwrfpzwj HermannCHEM LRMHO3265-54-46 10:58:007.0[facility]annCHEM ZBQDO2831-00-55 10:58:000.6 [facility]annCHEM RWSBN7134-79-65 10:58:000.5[facility]annCHEM PANEL 2016-04-16 10:58:000.5[facility] HermannCHEM TIGRL5352-32-35 10:58:004.6[facility]annCHEM YBAVX8693-80-38 10:58:000.21[facility] EorzprlMWWFNGQWGM8180-85-53 10:58:00* Test Item Value Reference Range Interpretation Comments PT (test code = PT) 14.4 s 12.0-14.7 [facility] IpalgjrPQYVNIOZWI5533-20-38 10:58:001.10[facility]annCHEM PANEL 2016-03-12 21:46:0065[facility] HermannCHEM AWBEL7001-74-55 21:46:002.0[facility]annCHEM FUXJX5957-92-87 21:46:0035[facility]annCHEM QWEAX0716-46-43 21:46:006.2[facility]annCHEM WHQEO1666-98-09 21:46:000.3[facility]annCHEM KQDCT0513-46-67 21:46:0013.7[facility]annCHEM WGJRC4937-46-93 21:46:0017 [facility]annCHEM ZLYCI1320-44-33 21:46:000.3[facility] HermannCHEM PANEL 2016-03-12 21:46:94122Dsscsmdl HermannCHEM UFTHF5699-42-35 21:46:008.3[facility]annCHEM PSSDR9168-50-56 21:46:002.1[facility]annCHEM JICNW5438-69-35 21:46:008.7[facility]annCHEM SXZXB9726-77-13 21:46:003.7[facility]annCHEM IBCPC5593-08-90 21:46:49000Ywyszsjs HermannCHEM YZXHK8939-21-33 21:46:44620 [facility]annCHEM RBFRC2310-46-85 21:46:47048Knirwmjx HermannCHEM PANEL 2016-03-12 21:46:0012[facility]annCHEM GVKUH3873-73-83 21:46:000.70[facility]annCHEM XABGE3200-16-44 21:46:0024[facility]annCHEM HDTHW4661-33-55 21:46:0016[facility]annCHEM GCWYH0475-20-56 21:46:0026[facility]annCHEM YTUGC5184-67-89 21:46:87962Btvqzwpw UmorwjlBPRDOCCKFR0349-55-14 21:46:0033.4 [facility] XvygosoFCRLAVIHUA8559-80-98 21:46:0010.2[facility]annHEMATOLOGY 2016-03-12 21:46:0014.9[facility] GppkzgrGTXRKNECLZ5793-72-40 21:46:007.0[facility] EjllqhfGIMOUUFXCQ6210-06-12 21:46:748105Cszxugpl NanscxmCNYQVPWDOF5466-67-90 21:46:0019.8[facility] VjfqlslVXHCKBMWDS5196-19-60 21:46:003.76[facility] KDGUNRNIFH0587-73-22 21:46:0081.2[facility] IggptjlGBXQVDQTHP3329-79-06 21:46:00 30.5[facility] SuwfkgxVGEFLPRDFG2220-04-57 21:46:00* Test Item Value Reference Range Interpretation Comments MCH (test code = MCH) 27.1 pg 27.0-31.0 [facility] LxnsyoeQRWCUEQBOJ4697-77-86 21:46:000.2[facility] HermannHEMATOLOGY 2016-03-12 21:46:000.1[facility] RatngorTTJAOTKFTU9975-20-08 21:46:000.8[facility] OmeslxxYVDLIHVXYO3614-63-02 21:46:0017.0[facility] IdcjbhkCQZCOVVPOF2652-59-95 21:46:001.7[facility] KlypjgkBUODFJAINP1971-03-69 21:46:000.4[facility] RRMHFBILYN1103-72-35 21:46:001.2[facility] CxmorbrTMZZFVOOYF1897-26-81 21:46:004.1 [facility] YoqsfcqXVAZBBDQNR8076-79-92 21:46:0085.9[facility]annHEMATOLOGY 2016-03-12 21:46:008.4[facility] RdfursaOGPKYSXKAR0494-30-91 21:46:00Normal (03/12/16 4:46 PM)[facility] KmvftkvSUDKRTDJWN9721-33-73 21:46:00Normal (03/12/16 4:46 PM)[facility] DpklvubIQYJNBIWTIZT2710-03-71 09:54:0013.3[facility] HVFAFLPXDGIP4125-42-61 09:54:08994Mkdfovxf HwkpiyzJXQSOMLKKNYC3198-82-49 09:54:008.6[facility] VtqnwbbAVGZGRHCDJSN5069-15-69 09:54:0026[facility] PIQFNWSIUTUS6263-74-14 09:54:0099[facility] AzyibsaTDERBGYMTURK3613-82-13 09:54:00 134[facility] FaguysgQZGQFHOTYZPF7194-27-62 09:54:0013[facility] HermannELECTROLYTES 2016-03-07 09:54:004.3[facility] KaxaagjFBHZJOXVGZVL4486-77-74 09:54:000.74 [facility] AqkbadwGFPUBGEWVNFA2552-90-99 09:54:82314Tjlqdauz HermannHEMATOLOGY 2016-03-07 09:54:51163Hovwhtjg GivglalMVYHJYTCYD0966-65-07 09:54:0014.6[facility] BbqlyiuHDAAXLNXXN5991-04-62 09:54:0031.7[facility] LgzbeeqYCEQNFOQCX7083-60-30 09:54:0010.6[facility] EmtbzrsSATOTRGBGF7445-10-80 09:54:007.0[facility] EAGFFGABIE9982-48-06 09:54:00* Test Item Value Reference Range Interpretation Comments MCH (test code = MCH) 27.3 pg 27.0-31.0 [facility] SoehoyzACUMMWWTMH6166-65-23 09:54:0081.6[facility]annHEMATOLOGY 2016-03-07 09:54:0033.5[facility] SgrczomMUNWACJQNB0303-27-40 09:54:003.89[facility] VxkdfbtPMIRWZFSIR3004-58-39 09:54:0022.2[facility] TlopgljCVYFOQUQUX5569-19-67 09:54:00Normal (03/07/16 4:54 AM)[facility] GfyqvkzQOYWTYGKOY8756-83-52 09:54:00 Normal (03/07/16 4:54 AM)[facility] ZxikwjeENSYBNUHTS5547-74-58 09:54:0018.6[facility] FfvxdgyCKDPHFSOYX7439-83-94 09:54:000.1[facility] PuzufekHIMZMHNNJA8527-37-39 09:54:0084.1[facility] WznsxdaGALRBUGYUA6839-31-25 09:54:002.0[facility] SEEEBVKOHG0716-26-18 09:54:000.8[facility] UghhtpqLVEMQCBYHE0273-51-08 09:54:000.7 [facility] SvnldqiXQCHEYXLPT2596-77-53 09:54:008.9[facility] HermannHEMATOLOGY 2016-03-07 09:54:003.6[facility] DwcfdukUCFUTFJFWK7938-95-59 09:54:003.3[facility] YyhradxJCDYUFXMSS6685-45-43 09:54:000.0[facility] HermannCHEM DLGPU2123-98-98 13:40:78042Wervmeke HermannCHEM NYDJL8525-02-53 13:40:000.70[facility] HermannCHEM RAWNM4333-50-28 13:40:0013[facility] HermannCHEM DAFMP8660-72-77 13:40:008.5 [facility]annCHEM DOWSC2509-43-19 13:40:0026[facility] HermannCHEM PANEL 2016-03-06 13:40:004.6[facility] HermannCHEM LIIWT4199-47-70 13:40:0099[facility] HermannCHEM LATGQ6834-42-27 13:40:0089[facility]annCHEM LQWCI5522-37-44 13:40:15168Bjirgffe HermannCHEM NEADF7127-16-32 13:40:0015.6[facility] HWNSPNHVLK4971-51-35 13:40:0032.6[facility] MmfackgIBURNMYIGP4244-39-18 13:40:00* Test Item Value Reference Range Interpretation Comments MCH (test code = MCH) 27.0 pg 27.0-31.0 [facility] AlxehuhIHLXOSZIUI0880-67-54 13:40:0081.4[facility] HermannHEMATOLOGY 2016-03-06 13:40:0010.8[facility] HxlghnjPXNFPXZMDA9354-47-77 13:40:73676Munsgdvb PkijporKBQIMBZPHK4737-95-86 13:40:007.0[facility] LparbsaQXVLTBYHUB0418-35-16 13:40:0033.2[facility] KqixaqjVXLSMBVQXY5462-96-97 13:40:0014.4[facility] HOQEKQGFPW1760-09-69 13:40:0020.8[facility] OcylyylZDSPDXTHMF4047-24-04 13:40:00 4.01[facility] RradcmhUBPAHDCYGY5089-96-57 13:40:000.1[facility] HermannHEMATOLOGY 2016-03-06 13:40:0082.1[facility] DimwsbwMOOSPPSBJB0540-12-61 13:40:00Normal (03/06/16 8:40 AM)[facility] HzrekjkHJFVEPUUWH7225-15-17 13:40:009.0[facility] WCXEFBFUKV5143-57-36 13:40:00Normal (03/06/16 8:40 AM)[facility]annHEMATOLOGY 2016-03-06 13:40:000.8[facility] AxmlhcuTLVTNQJWIC9341-30-12 13:40:001.0[facility] GuhctktTDXKAHYMEI9348-39-94 13:40:001.9[facility] VhndryvSAJUXOJICE8242-24-72 13:40:0017.1[facility] LitcxkaCBRMCJZZWI7013-19-41 13:40:000.3[facility] VECPVEIQXD2848-33-00 13:40:004.8[facility] JkbclytFCXINVZYQN3407-40-09 13:40:003.8 [facility] HhoaxagXABHMFZSXSJM5069-52-22 11:21:0011.7[facility] HermannELECTROLYTES 2016-03-05 11:21:45567Hcbzyyjg EswdnxkIMZMRNRCGZJB3820-01-26 11:21:0095[facility] XagoubmYKZLXCHZIVQV7932-03-98 11:21:0014[facility] EdgeucgLJGWIPBAPNHK0889-18-19 11:21:000.76[facility] LiveazrOJVUWQVCJIUQ6881-56-18 11:21:0027[facility] XGBFBMAXCACH6224-70-75 11:21:44377Euczldqc TtcvnbuYYMKNGKWMEYH8840-71-14 11:21:008.4[facility] KtpoacvFASNCWUSWKPN3834-73-07 11:21:99194Crjezyeo [place] MQQSSRETAKFS6952-44-19 11:21:004.7[facility] SdjyvoiYIORFQGTGA8853-78-82 11:21:00 2.3[facility] RqzmctpLREFVRJCSE7475-21-34 11:21:0015.2[facility]annHEMATOLOGY 2016-03-05 11:21:000.2[facility] CtgltsbJVWDXRIZFK2367-72-30 11:21:001.0[facility] YslgoqsRFBNTIEZPC9299-01-26 11:21:001.3[facility] RwuvagtJZVNQFNNHC9492-59-42 11:21:0076.6[facility] QmvhwljTMCJLRREJX6138-72-71 11:21:00Normal (03/05/16 6:21 AM) [facility] EvzmiqvMCQFOCCGQJ5051-70-51 11:21:00Normal (03/05/16 6:21 AM)[facility] XqyohekBRIOPKZYLV9770-22-41 11:21:0011.3[facility] UxcvgdeLFQUVZPDFX6596-14-77 11:21:005.2[facility] CmhwodeJZGHYPUKBW9110-89-05 11:21:006.7[facility] RKTPBIUYEE7529-58-53 11:21:0014.4[facility] AnpenrfGHLLWDSJSV3172-48-15 11:21:00 888[facility] OiuywtiJXLOWFFKTC2399-23-54 11:21:007.2[facility]annHEMATOLOGY 2016-03-05 11:21:0010.4[facility] UxrzjgyBGZPFCNKCL1631-78-67 11:21:0031.6[facility] FgxtorwPXCURDTCBL3067-79-92 11:21:0082.4[facility] VyhmiwcVNRYJQYPBA4394-68-39 11:21:00* Test Item Value Reference Range Interpretation Comments MCH (test code = MCH) 27.2 pg 27.0-31.0 [facility] YpazvovBGDKZQRCCI3374-85-83 11:21:0033.0[facility]annHEMATOLOGY 2016-03-05 11:21:0019.9[facility] QdwosjqEVYQZHLBLT2601-50-26 11:21:003.83[facility] UcyvobnTGDDGQWMPB2447-18-09 10:08:001.9[facility] QyytfiyBJYBESAPRI7122-97-63 10:08:00Moderate *ABN*(03/04/16 5:08 AM)[facility] BgrnevzHWBQLUSOXD1757-14-74 10:08:000.1[facility] HermannCHEM JESFB3758-95-86 10:45:003.9[facility]annCHEM HHZTM7806-48-35 10:45:002.1[facility] IytsmjyETZIOKDNEP7559-21-18 10:45:00>100 [facility] CikndneXYWWJUKTHN0272-51-80 10:45:22910.0[facility] HermannCHEM PANEL 2016-03-02 09:56:001.6[facility] HermannCHEM AIELZ8581-38-83 09:56:0055[facility]annCHEM DKGFZ7856-20-93 09:56:0025[facility]annCHEM QLXZH9985-80-90 09:56:000.5[facility]annCHEM QJAAP1213-05-82 09:56:007.3[facility]annCHEM FHTSC0161-01-68 09:56:94011Idvxdvso HermannCHEM YXSWX3554-20-80 09:56:0016 [facility]annCHEM NZHHS5814-82-84 09:56:005.7[facility]annCHEM PANEL 2016-03-02 09:56:000.3[facility]annCHEM ENLVQ9706-52-41 06:48:000.5[facility]annCHEM CAOGC2302-85-29 06:48:67226Wreutcrg HermannCHEM FMNAU6457-30-15 06:48:000.3[facility]annCHEM CQUSB9243-62-98 06:48:005.4[facility]annCHEM YSSEU9373-52-37 06:48:007.2[facility]annCHEM KXQWP0987-66-43 06:48:0038 [facility]annCHEM LFQIW2668-09-76 06:48:0018[facility]annCHEM PANEL 2016-03-01 06:48:001.8[facility]annCHEM GFSFQ4596-24-40 06:48:0087[facility]annCHEM WWEVY9198-46-39 08:47:000.3[facility]annCHEM VMHVA9101-30-51 08:47:000.2[facility]annCHEM RPJME4062-78-47 08:47:005.2[facility]annCHEM WNCKS7492-62-72 08:47:001.7[facility]annCHEM HUYWF2033-83-31 08:47:000.1 [facility]annCHEM ITPOK9331-10-09 08:47:006.9[facility]annCHEM PANEL 2016-02-29 08:47:99760Dcgvwrra HermannCHEM MHKNT9931-24-93 08:47:000.3[facility]annCHEM EUVWL2188-25-21 08:47:0057[facility]annCHEM XJEJS7787-15-13 08:47:0087[facility]annCHEM KNYRL0881-67-22 08:47:61732Qshmisva [place] MOLECULAR LTRZBLZIRP1902-47-43 21:07:00Negative (02/28/16 4:07 PM)[facility]annURINE AND UYZGQ6774-60-07 21:07:00None Seen (02/28/16 4:07 PM)[facility]annCHEM JRLRW7052-51-47 08:06:0010[facility] IouonnzDJMSLISXVI0455-35-27 08:06:00>100[facility] EukrmdfTMTNHFGJAK9288-61-53 08:06:0010.4[facility] [place] PWUXKROADL3043-27-76 08:06:53671.0[facility] HermannCHEM IULRP0748-31-03 09:25:00 2.1[facility] CbdpbrpFTPPCFDBEC0859-98-26 09:25:00>100[facility] HermannIMMUNOLOGY 2016-02-27 09:25:009.9[facility] NupfmtqJDFZVVECJU3435-32-07 09:25:00Negative *NA*(02/27/16 4:25 AM)[facility] DgplyprUNWCCNLJVB0443-12-12 09:25:22237.0[facility] JsvhtciJRZTKQ5372-66-29 17:15:0063[facility] HvcbnyuMBFGHM9308-04-24 17:15:0018 [facility] ZolkjhpBFEERH9299-72-59 17:15:0024[facility] BtgvkfoRHAUWF6888-52-18 17:15:004.38[facility] CkfcdmjWIPKWU6406-56-58 17:15:0088[facility] HermannLIPIDS 2016-02-26 17:15:37820Mhmgyhtp ZbdzynlZJMAAVZHNE0035-36-47 17:15:959558Apotbwvy PxkgbdiRFPTQWEDPJ7092-41-97 17:15:003.8[facility] HermannCHEM YSVGG9235-15-17 12:55:001.8[facility] HermannCHEM KQQOG9421-48-25 12:55:003.6[facility] HermannVIRAL - CAJEHDJY0417-91-05 12:55:00<0.90[facility] HermannDRUG KQSLGY3647-16-99 18:10:00 See Note *NA*(02/25/16 1:10 PM)[facility]annDRUG VXZFJD8142-51-95 18:10:00 Negative *NA*(02/25/16 1:10 PM)[facility] HermannDRUG MGENFA9359-46-07 18:10:00 Negative *NA*(02/25/16 1:10 PM)[facility]annDRUG IRHDYB2511-46-85 18:10:00 Negative *NA*(02/25/16 1:10 PM)[facility]annDRUG EVSTVU4406-26-79 18:10:00 Negative *NA*(02/25/16 1:10 PM)[facility]annDRUG XEMVYK2349-90-07 18:10:00 Negative *NA*(02/25/16 1:10 PM)[facility] HermannDRUG UWXOME6974-26-95 18:10:00 Negative *NA*(02/25/16 1:10 PM)[facility]annDRUG NIKGJE6540-40-41 18:10:00 Negative *NA*(02/25/16 1:10 PM)[facility] HermannCARDIAC TUTWBVH7074-83-56 14:40:00 0.26[facility] HermannCARDIAC YBKJGNM5956-10-51 14:40:00<0.5[facility] CARDIAC BLMWOMQ8877-41-61 14:40:0025[facility] HermannCARDIAC NOAUEHF0953-16-92 08:23:000.31[facility] HermannCARDIAC SKOSXNO9223-01-86 08:23:00<0.5[facility]annCARDIAC XTCTETN8933-36-38 08:23:0026[facility]annCHEM LHBRV0998-26-93 05:39:001.0[facility] HermannBACTERIAL - CSDXLYIJ6286-42-24 05:20:00Negative (02/25/16 12:20 AM)[facility] HermannBODY ABHIZM8087-09-99 05:20:00* Test Item Value Reference Range Interpretation Comments Tube Num CSF (test code = Tube Num CSF) 1 1 [facility]annBODY HSPKBX8373-87-79 05:20:0067[facility]annBODY FLUIDS 2016-02-25 05:20:009[facility]annBODY KLIJPK9277-81-17 05:20:00Clear (02/25/16 12:20 AM)[facility]annBODY GJLZLV0082-86-59 05:20:006[facility]annBODY KXVAOH3281-88-79 05:20:0058[facility]annBODY ERCSNM7833-19-78 05:20:00 Colorless (02/25/16 12:20 AM)[facility]annB[facility] JPNYER8968-11-17 05:20:00 Colorless (02/25/16 12:20 AM)[facility]annBODY MVUFHU7061-64-15 05:20:0036 [facility]annB[facility] PNRIRT6365-83-09 05:20:0045[facility]annBODY FLUIDS 2016-02-25 05:20:0050[facility]annBODY GAATVO9700-07-99 05:20:003[facility]annBODY QWOQRV4760-80-41 05:20:001[facility]annBODY YVLIZB9473-94-10 05:20:00Colorless (02/25/16 12:20 AM)[facility]annBODY KDBZEU6934-36-70 05:20:00Clear (02/25/16 12:20 AM)[facility]annBODY SMMSND9153-65-31 05:20:00 Colorless (02/25/16 12:20 AM)[facility]annBODY WJDAMT2141-80-62 05:20:00* Test Item Value Reference Range Interpretation Comments Tube Num CSF (test code = Tube Num CSF) 4 1 [facility]annFUNGAL - MFWJXSSW2065-96-81 05:20:00Negative (02/25/16 12:20 AM) [facility] WrjmdjfLSNKIUXBUS5480-76-74 05:20:00Non Reactive (02/25/16 12:20 AM) [facility]annMOLECULAR CLPDJZAGJJ3852-99-39 05:20:00Not Performed 1(02/25/16 12:20 AM)[facility] HermannMOLECULAR VCDZGDRXUX2122-25-59 05:20:00Not Performed 2(02/25/16 12:20 AM)[facility] HermannVIRAL - UOZDMSYW5655-87-94 05:20:00Negative (02/25/16 12:20 AM)[facility]annURINE AND FQDPN6306-01-76 01:41:00Trace *ABN*(02/24/16 8:41 PM)[facility] IYEXT7335-93-90 01:41:008 [facility] CDZOP6053-51-82 01:41:009[facility] BTHYO0202-53-76 01:41:00Negative *NA*(02/24/16 8:41 PM)[facility] CTMGD9702-17-04 01:41:00Negative (02/24/16 8:41 PM)[facility] WBGZW1981-62-38 01:41:00Small *ABN*(02/24/16 8:41 PM)[facility] MTJIV3318-33-58 01:41:00Slight *ABN*(02/24/16 8:41 PM)[facility] ZTRXA1519-51-02 01:41:00Yellow *NA*(02/24/16 8:41 PM)[facility] AELDR1814-95-62 01:41:001.016[facility] QAAPV1255-96-01 01:41:00 6.0[facility]annCARDIAC PSMKRJT4934-98-92 00:01:0025[facility] QFACNQP8387-94-29 00:01:000.33[facility] HtnguinMMAYRBUIOS5618-11-03 00:01:00<3 [facility] FcfmcgtQTWRBIHSOC5650-98-08 00:01:00<0.003[facility]annCHEM PANEL 2016-02-20 08:29:42195Ujvleirt HermannCHEM HXZEO0846-05-99 08:29:008.3[facility]annCHE[facility] XAASM5769-00-04 08:29:003.6[facility]annCHE[facility] ZSLSH8942-71-73 08:29:0027[facility]annCHE[facility] OCIWT2593-09-07 08:29:56861Ivzxpolm HermannCHEM WYUEW2148-96-98 08:29:34007Etgyuyup HermannCHEM YDIYW3573-75-19 08:29:000.48 [facility]CHE[facility] ZTAMS4529-36-39 08:29:007[facility]annCHE[facility] PANEL 2016-02-20 08:29:0098[facility]annCHE[facility] NAWBC5258-45-98 08:29:0010.6[facility]annCHE[facility] WKBAJ5143-14-58 08:29:001.9[facility] TsxasxwHYANQHHKVG9104-82-94 08:29:0010.1[facility] DqrqplxGHCJZBNLHO6874-67-50 08:29:0078.4[facility] QDTALPXLRP1221-18-32 08:29:0011.8[facility] WrznzuoSNSAMQRIOU6123-69-51 08:29:00 0.7[facility] YtqeumsCLIPBWPCZL2334-41-79 08:29:003.0[facility]annHEMATOLOGY 2016-02-20 08:29:007.8[facility] NufaaydOOPTGMKBKA2606-79-05 08:29:001.5[facility] TccaegpAPPDKLKTAV3524-19-26 08:29:000.1[facility] YxpojggRSGQQEAPME0687-68-30 08:29:001.2[facility] ZisvjqyWGRGTHNTXJ0384-87-78 08:29:000.4[facility] CBEJWCJEYB7210-58-35 08:29:004.35[facility] ItcquamBYXSIALBBL0145-96-22 08:29:00 15.1[facility] PiwtdrpSUKHOLTLJR1327-10-06 08:29:0082.5[facility]annHEMATOLOGY 2016-02-20 08:29:0035.9[facility] MnujbzyOXDERHLULC2108-61-29 08:29:0011.7[facility] UgsmxdnNHHSKTRDWA4630-20-60 08:29:0013.7[facility] ThgixinUOAJQHJSCT9370-52-01 08:29:00* Test Item Value Reference Range Interpretation Comments MCH (test code = MCH) 26.9 pg 27.0-31.0 [facility] PwedjgcPRFXLKDCKD1282-19-02 08:29:0032.6[facility]annHEMATOLOGY 2016-02-20 08:29:007.0[facility] DtifiodCGBEPRBHTD2136-43-11 08:29:19500Ahtwnwrx HermannCHEM YJXHX0080-59-23 08:22:001.7[facility] TaltudaPMMHMEZMKTRL9721-52-24 08:22:10486Arpdlopo FmkiiihNUHSFEUYXFQA1875-18-82 08:22:0026[facility] IADTEIHTJUBK0068-00-38 08:22:008.4[facility] FcmwxtyJXMZHJUKAWHR8218-35-34 08:22:0010[facility] SxssezqVICPHNJRMHBL9891-81-84 08:22:000.56[facility] OOWQRMDYZOMN4185-82-29 08:22:93113Vrugkfoe AbaovucTZGBILDPMJIE1577-26-95 08:22:05860Elceappz CaedcxuHGZWPJJQWIVA8332-16-49 08:22:003.4[facility] XHHZVBKAFOFZ4243-36-26 08:22:08115Fkloofgc CrlupoiLYTXDEDABWWP0906-99-42 08:22:0011.4[facility] YwpizuiKZBRRHWYBX2848-26-36 08:22:0011.8[facility] TQOEHGTCBN5719-40-34 08:22:0036.5[facility] VruwsnvKURDZTQIXB8513-43-10 08:22:00 4.38[facility] BnuqcqbNJIHIJIZME9572-06-77 08:22:0083.5[facility]annHEMATOLOGY 2016-02-19 08:22:00* Test Item Value Reference Range Interpretation Comments MCH (test code = MCH) 27.0 pg 27.0-31.0 [facility] VnxisudZWMPLSHSBR2678-85-95 08:22:0017.1[facility]annHEMATOLOGY 2016-02-19 08:22:007.2[facility] TmbqtwzJMEWLCSLJP7622-76-76 08:22:0032.4[facility] HidzqnhJYZEQMPCOF9755-54-09 08:22:0014.0[facility] MqildzkNPWYHUPYCZ6510-65-86 08:22:20397Wskxffbo KhecdozAMGWZAVPEU7624-22-87 08:22:000.2[facility] NBSEMAUJSP1885-85-92 08:22:000.8[facility] NkfiiohLTYLDRSJYZ7910-97-48 08:22:001.5 [facility] SrtlpcoHIVFLDHXAR9640-68-17 08:22:0014.5[facility]annHEMATOLOGY 2016-02-19 08:22:000.5[facility] VoksofhRMSNOLLBUK0074-09-92 08:22:001.0[facility] CbgujeaMHZFRVCUWR7820-52-36 08:22:004.7[facility] XtcjxjjNFTRGZUGUO0566-30-96 08:22:008.9[facility] WsuwsqhZGFHFYUHBE1985-97-05 08:22:0084.9[facility] VFDAHKGCQC9147-22-01 08:22:000.1[facility] KeockucFCUBPYJZRR8973-66-22 12:03:007.6 [facility] KhabwrhTYNNWWJPTX1523-61-84 12:03:0013.8[facility]annHEMATOLOGY 2016-02-18 12:03:0032.4[facility] LhbnydpOKGYEKFTIY0284-14-26 12:03:95787Mwygtrqo BfmrzhyRSRSFWNLMH2979-51-38 12:03:0038.7[facility] UbbtykgBTMIVGTHDC5417-16-19 12:03:0084.1[facility] YccnszjRZINBPUEFI4793-99-06 12:03:00* Test Item Value Reference Range Interpretation Comments MCH (test code = MCH) 27.3 pg 27.0-31.0 [facility] NthtqeeVUIHUBRRXK5416-41-78 12:03:004.59[facility]annHEMATOLOGY 2016-02-18 12:03:0012.5[facility] FwzzjvrKTRIPHOEFD8348-73-81 12:03:0016.0[facility] UhagjtwQWOEBWRFIJ1845-02-18 12:03:000.1[facility] CzqcyllDADWHOXDXH2553-93-42 12:03:000.4[facility] BkuihnvYVTAZJRQKP3714-27-43 12:03:001.2[facility] QVDZXBOOBW5506-23-76 12:03:001.4[facility] RioshfbLERLUMSAHH0848-50-83 12:03:00 12.9[facility] EoschnqFGKIQQRDYT4787-35-14 12:03:000.9[facility]annHEMATOLOGY 2016-02-18 12:03:002.2[facility] TjzefzfGGYLDKNIIO3696-53-53 12:03:007.7[facility] KurfdjpJLMSHNYAPH4828-34-43 12:03:008.6[facility] XpczznkPZSHAHDYTC9467-36-18 12:03:0080.6[facility] RbfiaqgPGOMXAGBHP9454-11-59 12:03:00Negative *NA*(02/18/16 7:03 AM)[facility] UkyciilNRCXQVVBYV6979-28-05 12:03:00Negative *NA*(02/18/16 7:03 AM)[facility] DngiinwAHLLNTJQEQ1304-91-61 12:03:00Negative *NA*(02/18/16 7:03 AM) [facility] GdylclnBASIUYZRRI0428-29-16 12:03:00Negative *NA*(02/18/16 7:03 AM) [facility] RjcjfrlQVPAZ1777-48-09 21:29:00Negative (02/17/16 4:29 PM)[facility] ADNMNDC2626-73-06 20:42:00Negative (02/17/16 3:42 PM)[facility]annCHEM LGQCX7793-61-85 15:07:000.9[facility]annCHEM ZFSWV7531-90-04 15:07:000.10[facility] YcdklefPGGIWMLHIG2109-85-63 15:07:00* Test Item Value Reference Range Interpretation Comments PT (test code = PT) 14.6 s 12.0-14.7 [facility] EqaoefoPZFKFZYCSH5087-31-89 15:07:001.11[facility]annHEMATOLOGY 2016-02-17 15:07:00* Test Item Value Reference Range Interpretation Comments PTT (test code = PTT) 32.8 s 22.9-35.8 [facility] WmxquceRUFYSVNRCZ0907-19-79 15:07:00Negative *NA*(02/17/16 10:07 AM) [facility] CLMRQ5276-90-57 08:45:00Negative *NA*(02/17/16 3:45 AM) [facility] JLYBM9993-30-20 08:45:00Trace *ABN*(02/17/16 3:45 AM) [facility] WIXPR6162-01-04 08:45:00* Test Item Value Reference Range Interpretation Comments UA Spec Grav (test code = UA Spec Grav) 1.025 1 [facility] OMKNY0680-82-84 08:45:00* Test Item Value Reference Range Interpretation Comments UA pH (test code = UA pH) 6.0 1 5.0-8.0 [facility] EJJMN9991-79-81 08:45:00Trace *ABN*(02/17/16 3:45 AM) [facility] WJIRV8352-47-87 08:45:00Negative (02/17/16 3:45 AM) [facility] YHOAX3783-41-94 08:45:00Trace *ABN*(02/17/16 3:45 AM) [facility] IIPFV6489-93-74 08:45:002.0[facility] OWSFZ5651-46-57 08:45:00Clear (02/17/16 3:45 AM)[facility] STOOL 2016-02-17 08:45:00Yellow *NA*(02/17/16 3:45 AM)[facility] ST[facility]OL 2016-02-17 08:45:00Negative *NA*(02/17/16 3:45 AM)[facility]annCHEM PANEL 2016-02-17 07:40:0091[facility]annCHEM KUSLB2599-63-39 07:40:0046[facility]annCHEM RJIVH1586-45-16 07:40:005.8[facility]annCHEM QQVHX2075-84-23 07:40:0015[facility]annCHEM TQPKD8998-82-07 07:40:000.3[facility]annCHEM EMMHB4633-42-60 07:40:008.8[facility]annCHEM TNNUW9142-13-45 07:40:82837 [facility]annCHE[facility] MWHAT5023-47-93 07:40:0025[facility]annCHEM PANEL 2016-02-17 07:40:000.2[facility]annCHEM JOVDB3861-10-05 07:40:64124Pqgwzjya HermannCHEM ZVEPJ4887-57-26 07:40:0030[facility]annCHE[facility] NQMMW9060-19-77 07:40:008.5[facility]annCHE[facility] YQNKU9587-31-25 07:40:007.8[facility]annCHE[facility] BSZKE8166-87-68 07:40:002.0[facility]annCHEM USVUH9108-11-04 07:40:0040 [facility]CHE[facility] SHZXF3180-07-60 07:40:000.67[facility]annCHEM PANEL 2016-02-17 07:40:40247Zyxuqgdo HermannCHEM GIUNI0538-55-96 07:40:003.8[facility]annCHEM YQWLH9517-69-05 07:40:0094[facility]annCHE[facility] CPHEA3707-43-26 07:40:64986Senpozro HermannCHEM RLSTF9074-09-97 07:40:0010[facility]annDRUG RUZIEU5763-92-34 08:15:00Negative *NA*(02/14/16 3:15 AM)[facility]DR[facility] MARDNY0612-25-37 08:15:00Negative *NA*(02/14/16 3:15 AM)[facility]DR[facility] XEOEAT6370-59-44 08:15:00Positive *ABN*(02/14/16 3:15 AM)[facility]DR[facility] MXGGFP7998-27-13 08:15:00Positive *ABN*(02/14/16 3:15 AM)[facility]DR[facility] HUJKII5339-95-54 08:15:00Positive *ABN*(02/14/16 3:15 AM)[facility]DR[facility] NNDQWT6454-32-56 08:15:00Negative *NA*(02/14/16 3:15 AM)[facility]DR[facility] PRSOYH9277-17-72 08:15:00Negative *NA*(02/14/16 3:15 AM)[facility]DR[facility] VZWHVN0950-32-79 08:15:00See Note (02/14/16 3:15 AM)[facility] XPIAN1214-74-87 08:15:00Negative (02/14/16 3:15 AM)[facility] SAMTX7317-17-93 08:15:004.0[facility] GTMED7523-27-42 08:15:00 Trace *ABN*(02/14/16 3:15 AM)[facility] BOAZE1246-54-87 08:15:00 Slight *ABN*(02/14/16 3:15 AM)[facility] CVAMH4558-90-59 08:15:00 Negative *NA*(02/14/16 3:15 AM)[facility] TKWFX7566-09-94 08:15:00 5.0[facility] DZTZC0223-79-22 08:15:001.028[facility] IXBPO9566-08-88 08:15:004[facility] DXUVD6980-28-77 08:15:005 [facility] PUYYJ6764-51-51 08:15:00Small *ABN*(02/14/16 3:15 AM) [facility]annCARDIAC KKWBQFM0026-66-51 06:54:0049[facility]annCHEM PANEL 2016-02-14 06:54:0064[facility]annCHEM WPGWS0889-33-17 06:54:20294Ahltftgd HermannCHEM BABSG1536-83-58 06:54:34217Lsuwjcls HermannCHEM DXACH2366-21-33 06:54:0026[facility]annCHEM IZUCE3565-81-16 06:54:0039[facility]annCHEM ANKDK8249-15-13 06:54:0097[facility]annCHEM NZEPA4117-09-25 06:54:000.6 [facility]annCHE[facility] LWOET2918-56-22 06:54:008.0[facility]annCHEM PANEL 2016-02-14 06:54:000.71[facility]annCHEM LAPMD0859-66-85 06:54:0097[facility]annCHEM HUFRP6593-63-87 06:54:0026[facility]annCHEM PHMLE0744-74-71 06:54:004.2[facility]annCHEM DNOYI3052-04-89 06:54:008.6[facility]annCHEM CDLCV3470-27-56 06:54:002.2[facility]annCHEM EFQMC6365-84-55 06:54:43401 [facility]annCHE[facility] VFSHH3479-27-66 06:54:0014[facility]annCHEM PANEL 2016-02-14 06:54:000.4[facility]annCHEM NJIMO6329-19-77 06:54:005.8[facility]annCHEM NZEVA0084-83-19 06:54:0020[facility]annCHEM EUNRY2568-24-43 06:54:0014.2[facility] PobzuryQSCTOAKTSV3170-81-46 06:54:000.1[facility] EVLPKSWVMM1975-12-41 06:54:001.0[facility] NymievpXNVOPOCAWT3413-71-33 06:54:000.1 [facility] NkfjnveHZMERZEEVB4502-72-85 06:54:007.[facility]annHEMATOLOGY 2016-02-14 06:54:000.6[facility] MamjjawCXPUFSPGQP7510-00-22 06:54:0010.9[facility] YgbovpsWTSVDFFIHC1033-78-99 06:54:000.5[facility] WfrwrtjTQZACTXXWA8421-51-31 06:54:001.4[facility] FdmkkfiJCDIRSNSJA1175-57-32 06:54:00Normal (02/14/16 1:54 AM) [facility] NtecpilRBXRYGEPLO1449-28-71 06:54:0080.7[facility]annHEMATOLOGY 2016-02-14 06:54:000.0[facility] InmkycdLRAVUVYPDP7548-62-36 06:54:0010.6[facility] NlfivjtJVGUHNWOOE8577-45-68 06:54:00Normal (02/14/16 1:54 AM)[facility] JCFGRXIQMW9901-17-21 06:54:007.2[facility] PzrbpqsJSCLNBDTBI1289-77-10 06:54:16590 [facility] GraliygJZFAPCPLEG7208-01-22 06:54:0084.4[facility]annHEMATOLOGY 2016-02-14 06:54:0037.3[facility] BqjaztqKEZVLOHXBR0436-89-46 06:54:0033.2[facility] TghugyxZWUQJQQUVQ9458-47-44 06:54:00* Test Item Value Reference Range Interpretation Comments MCH (test code = MCH) 28.0 pg 27.0-31.0 [facility] DkitonnJYKFETORIC5828-55-99 06:54:0013.9[facility]annHEMATOLOGY 2016-02-14 06:54:0013.5[facility] JyqrerxSHUMNEACYQ3952-60-40 06:54:0012.4[facility] ZvqrramNLHYDTJKIM1320-76-87 06:54:004.42[facility]annCARDIAC ENZYMES 2014-05-10 01:00:0067[facility]annCHEM XJEJM8351-26-65 01:00:000.5[facility]annCHEM WUGXE5798-60-71 01:00:005.1[facility]annCHEM YPDHL2342-95-35 01:00:0012[facility]annCHEM JXXBO6740-49-96 01:00:008.7[facility]annCHEM QYCNJ7373-93-87 01:00:0081[facility]annCHEM HSSVK0991-88-23 01:00:0085 [facility]annCHE[facility] ZYGCC0898-68-89 01:00:00<0.1[facility]annCHEM PANEL 2014-05-10 01:00:002.4[facility]annCHEM HYWHL1993-93-47 01:00:0015[facility]annCHEM WUIOE1768-55-11 01:00:007.5[facility]annCHEM OJXIY9486-76-04 01:00:008.2[facility]annCHEM SXOVH4175-17-98 01:00:001.2[facility]annCHEM VGBAC0494-29-90 01:00:74257Yqijmvrm HermannCHEM VTFLL0037-17-30 01:00:003.7 [facility]annCHE[facility] KXXIP8414-46-77 01:00:0014[facility]annCHEM PANEL 2014-05-10 01:00:006[facility]annCHEM OFCKU7770-26-15 01:00:89054Ltaaxeiu HermannCHEM SDALB9562-13-80 01:00:0031[facility]annCHEM QZSBF9940-69-57 01:00:0086[facility]annDRUG ZQDGFW3024-83-74 01:00:00Negative *NA*(05/09/14 7:00 PM)[facility]DR[facility] ASHMRY6328-86-91 01:00:00See Note 3(05/09/14 7:00 PM)[facility]DR[facility] SOWAPB9434-47-30 01:00:00Negative *NA*(05/09/14 7:00 PM) [facility]DR[facility] CDQKHL8653-41-26 01:00:00Negative *NA*(05/09/14 7:00 PM) [facility]DR[facility] JNINVP7169-12-89 01:00:00Negative *NA*(05/09/14 7:00 PM) [facility]DR[facility] BVSJTH5045-21-39 01:00:00Negative *NA*(05/09/14 7:00 PM) [facility]DR[facility] KKDSQP6874-87-69 01:00:00Positive *ABN*(05/09/14 7:00 PM) [facility]DR[facility] GQZTUN0183-64-60 01:00:00Negative *NA*(05/09/14 7:00 PM) [facility] RrqcdsfKPOVOMEMIA8241-84-02 01:00:0035.1[facility]annHEMATOLOGY 2014-05-10 01:00:0011.5[facility] GappwndFJENNOMFJI2347-10-29 01:00:004.37[facility] YkrtmewOGGUDRZEDR7517-23-47 01:00:0012.4[facility] MhazikoRNKRLXXMPL5933-94-83 01:00:007.6[facility] BoeujdrDBHURWFHCC6054-05-09 01:00:16327Ewpsskgv [place] XONXPTPLFP1578-55-74 01:00:0016.0[facility] QsuugxhLGUJRKXWHX6392-97-50 01:00:00* Test Item Value Reference Range Interpretation Comments MCH (test code = MCH) 26.3 pg 27.0-31.0 [facility] ZeglstwUCZRYSPABF5537-04-45 01:00:0032.8[facility]annHEMATOLOGY 2014-05-10 01:00:0080.3[facility] TximgwhIXZLAGDSQD4872-64-76 01:00:001.8[facility] AegmnozVCKTLBCZMV7082-44-12 01:00:000.3[facility] WniylcmRUFQCGHYVM0764-15-26 01:00:000.0[facility] ZulhhfuSWBPSTIDEE8529-05-18 01:00:000.4[facility] LLPRZBBAFX5210-92-07 01:00:0014.3[facility] EevgkkzLKDVLQKFFF4020-88-75 01:00:00 2.7[facility] HtfzlbtZYVEQZUUXN2079-60-34 01:00:003.3[facility]annHEMATOLOGY 2014-05-10 01:00:000.2[facility] KkwmjnyXFOSZMWEIO9125-32-22 01:00:009.9[facility] TvoimidPDHJHLXFTD8748-33-19 01:00:0079.5[facility] STOOL 2014-05-10 01:00:00None Seen (05/09/14 7:00 PM)[facility] 2014-05-10 01:00:00None Seen (05/09/14 7:00 PM)[facility] 2014-05-10 01:00:00None Seen (05/09/14 7:00 PM)[facility] 2014-05-10 01:00:00Performed (05/09/14 7:00 PM)[facility] 2014-05-10 01:00:00Negative (05/09/14 7:00 PM)[facility] ST[facility] 2014-05-10 01:00:00* Test Item Value Reference Range Interpretation Comments UA pH (test code = UA pH) 7.5 1 5.0-8.0 [facility] CLXDB9413-09-02 01:00:00* Test Item Value Reference Range Interpretation Comments UA Spec Grav (test code = UA Spec Grav) 1.015 1 [facility] QJZQS2953-42-25 01:00:00Small *ABN*(05/09/14 7:00 PM) [facility] VZBMO7381-93-13 01:00:00Negative *NA*(05/09/14 7:00 PM) [facility] ETDBK7948-72-37 01:00:00Negative (05/09/14 7:00 PM) [facility] RLDFI5109-12-29 01:00:00Negative *NA*(05/09/14 7:00 PM) [facility] TNQIY5517-80-61 01:00:00Negative (05/09/14 7:00 PM) [facility] ANXEI0408-61-96 01:00:001.0[facility] EKHCO5802-19-11 01:00:00Negative (05/09/14 7:00 PM)[facility] LMRPK3779-23-39 01:00:00Slight Cloudy (05/09/14 7:00 PM)[facility] UXEGW1736-34-21 01:00:00Yellow *NA*(05/09/14 7:00 PM)[facility]annCARDIAC SBSLYZP5350-63-90 19:23:000.9[facility]annCARDIAC LDGUVMB4687-02-24 19:23:00 53[facility]annCARDIAC ZOWPYLS6599-84-56 19:23:00<0.02[facility]annCARDIAC WECCVDY3933-58-63 19:23:000.5[facility] HermannCHEM PHZDE3836-60-78 19:23:001.5 [facility] ThdaczfSLDIZPDKLECF5276-70-09 19:23:0025[facility] HermannELECTROLYTES 2014-02-14 19:23:008.6[facility] LnpsqplJMDNTQNXIPYH5191-01-94 19:23:0076[facility] RuakcrzIHLMGAZFFRIZ9621-02-70 19:23:21388Xnqrtqvs XmerqqeUJSRBHQCCVBN3585-78-41 19:23:000.8[facility] RjryacqVSLMGIKDGZSM8749-16-41 19:23:008.9[facility] BMXRPLYXSAJB5439-93-66 19:23:0010[facility] FoxeaumJYERCDOLEDJH9880-30-97 19:23:00 16[facility] TkquxxaPPLNRPZPPWUQ5285-59-69 19:23:13583Pyqonslm HermannELECTROLYTES 2014-02-14 19:23:46617Hfzymego YpoyoskPPXJMMRUGRAC6276-75-75 19:23:003.6[facility] BxpxfveUQYGWFJFEOQB8986-08-87 19:23:007.5[facility] MzfdxiuUCVBKXIPCPJH7182-35-80 19:23:005.2[facility] SbcadqkXSAFGLNOBYFH6945-96-13 19:23:000.4[facility] GVSCOHKYQLHW9762-18-76 19:23:000.5[facility] KpjdhusMCQHNVUSZRRV1930-13-24 19:23:0091[facility] FuommxiGXKUPUSASIUX5522-38-15 19:23:009[facility] NAARRSTTDOCO7725-31-73 19:23:007[facility] FolazfkZBXUIUNTEAKN8311-05-15 19:23:00 2.3[facility] DvzahxrURRDQMVBOC4774-03-20 19:23:000.2[facility] HermannHEMATOLOGY 2014-02-14 19:23:0079.3[facility] VliejaeQQMGULCAMY3630-93-54 19:23:000.1[facility] YoohkrhPSTPJSGPWW4520-11-17 19:23:001.3[facility] RwcsgweRUYVJVPTZC9875-32-62 19:23:006.7[facility] OhxsnafESHYBIBPEM2221-96-81 19:23:0012.6[facility] ZPUZVPMLSZ6023-53-97 19:23:001.8[facility] CkwjrjpPVARATINNM7191-06-05 19:23:00 11.4[facility] SqiyjtrLDCOGMIGYI2897-29-62 19:23:001.0[facility] HermannHEMATOLOGY 2014-02-14 19:23:99449Kckehrkb XxapukzNMAYWIWQRQ0440-53-76 19:23:007.1[facility] KvwvpckQXMAHVYNUI2119-13-08 19:23:0013.7[facility] GegiiinFEBDSUBYXS1855-72-70 19:23:00* Test Item Value Reference Range Interpretation Comments MCH (test code = MCH) 27.6 pg 27.0-31.0 [facility] YyrgmtxABDIAYQFSG3049-58-12 19:23:0082.7[facility]ann[facility]MATOLOGY 2014-02-14 19:23:0033.4[facility] XkezbseDUYEWSAQBP6526-36-86 19:23:0014.4[facility] IdjyhzhEPDRLJWVUN4936-87-07 19:23:004.25[facility] NrkaufsMJSJQBJKLX5439-47-92 19:23:0011.7[facility] UnlnnheRPWGQXEWNO6874-39-92 19:23:0035.2[facility] PQGOZQ5286-73-49 19:21:00Negative *NA*(02/14/14 2:21 PM)[facility] KFWVJF5785-90-49 19:21:00Positive *ABN*(02/14/14 2:21 PM)[facility] URNSMM5127-68-93 19:21:00Negative *NA*(02/14/14 2:21 PM)[facility] RDXPMF5815-28-01 19:21:00Negative *NA*(02/14/14 2:21 PM)[facility] CDBAMJ9217-43-58 19:21:00Negative *NA*(02/14/14 2:21 PM)[facility] AHQTIZ4970-15-64 19:21:00Negative *NA*(02/14/14 2:21 PM)[facility] XEDWJS6691-84-21 19:21:00Negative *NA*(02/14/14 2:21 PM)[facility] UJMVHD9622-40-96 19:21:00See Note 3*NA*(02/14/14 2:21 PM)[facility] CWNZK9979-30-27 19:21:001.009[facility] UZSSC5361-06-45 19:21:00Clear (02/14/14 2:21 PM)[facility] AYMOS1847-03-76 19:21:001[facility] TBUWD1614-26-48 19:21:00<1[facility] RAHPS6629-59-40 19:21:00Light Yellow *NA*(02/14/14 2:21 PM)[facility] CRAKN4282-78-42 19:21:006.0[facility] STOOL 2014-02-14 19:21:00Negative *NA*(02/14/14 2:21 PM)[facility] STOOL 2014-02-14 19:21:00Negative (02/14/14 2:21 PM)[facility] STOOL 2014-02-14 19:21:00Negative (02/14/14 2:21 PM)[facility] STOOL 2014-02-14 19:21:00Negative (02/14/14 2:21 PM)[facility]
--- OUTSIDE RECORDS SUMMARY | 2020-02-02 16:26 | XMS REPORT | Clinical Summary ---
Author Author [facility] Organization [facility] Address Unknown Phone Unavailable Care Team Providers Care Manual Lathe Operator Name Role Phone Chau Lopez PCP [...] Advance Directives For more information, please contact: [facility] [address] [place] [address] Date Inactivated Comments Code Status Date Activated 04/15/2017 4:05 PM Full Code 04/13/2017 4:06 PM This code status was determined by: Patient
--- OUTSIDE RECORDS SUMMARY | 2020-02-02 16:27 | XMS REPORT | Continuity of Care Document ---
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 cyclobenzaprine 10 mg oral tablet 10 mg = 1 tab, PO, TID, PRN for spasms, # 30 tab, 0 Refill(s) On Hold 05/19/2016 [facility] baclofen 10 mg oral tablet 10 mg = 1 tab, PO, TID, # 270 tab, 0 Refill(s) On Hold 05/19/2016 [facility] atorvastatin 40 MG Oral Tablet [Lipitor] 40 mg = 1 tab, PO, Bedtime, # 90 tab, 0 Refill(s) On Hold 05/19/2016 [facility] Famotidine 20 MG Oral Tablet [Pepcid] 20 mg = 1 tab, PO, BID, # 180 tab, 0 Refill(s) O n Hold 05/19/2016 [facility] 24 HR Nifedipine 30 MG Extended Release Tablet [Nifedical] 30 mg = 1 tab, PO, Daily, # 30 tab, 0 Refill(s) No Longer Active 05/19/2016 [facility] Sodium Chloride 0.154 MEQ/ML Injectable Solution 1,000 mL, Rate: 125 ml/hr, Infuse over: 8 hr, Route: IV, Dosing Weight 59.3 kg, Total Volume: 1,000, Start date: 05/18/16 22:20:00 INSOLE CHANNELER, Duration: 30 day, Stop date: 06/17/16 22:19:00 INSOLE CHANNELER No Longe r Active 05/19/2016 [facility] Saline Flush 0.9% Notes: (Same as: BD Posiflush) No Longer Active 05/19/2016 [facility] Docusate Notes: (Same as: Cola ce) (Do Not Crush) No Longer Active 05/19/2016 [facility] Hydralazine Notes: (Same as: A presoline) Push over 5 minutes No Longer Active 05/19/2016 [facility] Hydralazine 5 mg, Route: IV, O NCE, Dosing Weight 59.3, kg, Start date: 05/18/16 22:08:00 INSOLE CHANNELER, Stop date: 05/18/16 22:08:00 INSOLE CHANNELER Inactive 05/19/2016 [facility] Sodium Chloride 0.154 MEQ/ML Injectable Solution 1,000 mL, 2,000 ml/hr, Infuse Over: 30 minutes, Route: IV, 1,000, Drug form: INJ, ONCE, Priority: STAT, Dosing Weight 59.3 kg, Start date: 05/18/16 21:43:00 INSOLE CHANNELER, Duration: 1 doses or times, Stop date: 05/18/16 21:43:00 INSOLE CHANNELER Inactive 05/19/2016 [facility] Labetalol 20 mg, Route: IVP, D rug form: INJ, ONCE, Dosing Weight 59.3, kg, Priority: STAT, Start date: 05/18/16 20:25:00 INSOLE CHANNELER, Stop date: 05/18/16 20:25:00 INSOLE CHANNELER Inactive 05/19/2016 [facility] Vancomycin 2001 mg: infuse ov er 2.5 hours MEDICATION WASTE Product Size: 1000 mg Product Wasted: ___ mg Inactive 05/19/2016 [facility] Saline Flush 0.9% Notes: (Same as: BD Posiflush) No Longer Active 05/19/2016 [facility] Zosyn 3.375 gm, Route: IVPB, O NCE, Dosing Weight 59.3, kg, Priority: STAT, Start date: 05/18/16 20:21:00 INSOLE CHANNELER, Stop date: 05/18/16 20:21:00 INSOLE CHANNELER Inactive 05/19/2016 [facility] Procardia XL Notes: (Same as: Procardia XL) "Do Not Crush" "Avoid grapefruit and grapefruit juice" Inactive 04/28/2016 [facility] 24 HR Nifedipine 60 MG Extended Release Tablet 60 mg = 1 tab, PO, Daily, # 30 tab, 0 Refill(s) Active 04/28/2016 [facility] Hydralazine Hydrochloride 50 MG Oral Tablet 50 mg = 1 tab, PO, Q8H, # 90 tab, 0 Refill(s) Active 04/28/2016 [facility] tramadol hydrochloride 50 MG Oral Tablet Notes: Not to exceed 400mg/day. (Same As: Ultram) No Longer Active 04/28/2016 [facility] Hydralazine Hydrochloride 50 MG Oral Tablet Notes: (Same as: Apresoline) May interfere w/enteral feedings Take With Food No Longer Active 04/27/2016 [facility] 24 HR Nifedipine 30 MG Extended Release Tablet 30 mg, 1 tab, Route: PO, Drug form: ERTAB, Daily, Dosing Weight 62.9, kg, Start date: 04/27/16 9:00:00 CDT, Duration: 30 day, Stop date: 05/26/16 9:00:00 INSOLE CHANNELER Inactive 04/27/2016 [facility] clopidogrel Notes: (Same As: P lavix) No Longer Active 04/27/2016 [facility] Aspirin 81 MG Enteric Coated Tablet Notes: Do not crush or chew. (Same As: Ecotrin) No Longer Active 04/27/2016 [facility] Amlodipine Notes: (Same as: No rvasc) Inactive 04/27/2016 [facility] hydroxyurea Notes: (Same as: H ydrea) Chemotherapy agent/Handle with caution "Do Not Crush" WASTE: F/P - Black; E - Yellow No Longer Active 04/27/2016 [facility] heparin Notes: porcine heparin No Longer Active 04/27/2016 [facility] Sodium Chloride 0.154 MEQ/ML Injectable Solution 1,000 mL, Rate: 100 ml/hr, Infuse over: 10 hr, Route: IV, Dosing Weight 62.9 kg, Total Volume: 1,000, Start date: 04/26/16 22:16:00 CDT, Duration: 30 day, Stop date: 05/26/16 22:15:00 INSOLE CHANNELER No Longe r Active 04/27/2016 [facility] Sodium Chloride 0.154 MEQ/ML Injectable Solution 500 mL, 500 ml/hr, Infuse Over: 1 hr, Route: IV, 500, Drug form: INJ, ONCE, Priority: STAT, Dosing Weight 62.9 kg, Start date: 04/26/16 22:14:00 CDT, Duration: 1 doses or times, Stop date: 04/26/16 22:14:00 CDT Inactive 04/27/2016 [facility] Labetalol Notes: (Same as: Greg Tovar) Push over 2 minutes Give bolus over 2-3 minutes. Inactive 04/27/2016 [facility] Labetalol Notes: (Same as: Pascale Tovardate) Push over 2 minutes Give bolus over 2-3 minutes. Inactive 04/26/2016 [facility] Ativan Notes: (Same as: Ativan) Inactive 04/26/2016 [facility] tramadol hydrochloride 50 MG Oral Tablet 50 mg = 1 tab, PO, Q6H, PRN Pain, # 40 tab, 0 Refill(s) Active 04/26/2016 [facility] cyclobenzaprine 10 mg oral tablet 10 mg = 1 tab, PO, TID, PRN for spasms, # 30 tab, 0 Refill(s) No Longer Active 04/26/2016 [facility] baclofen 10 mg oral tablet 10 mg = 1 tab, PO, TID, # 270 tab, 0 Refill(s) Active 04/26/2016 [facility] Hydralazine Notes: (Same as: A presoline) Push over 5 minutes Inactive 04/26/2016 [facility] Versed 2 mg, Route: IVP, ONCE, Dosing Weight 68.182, kg, Priority: STAT, Start date: 04/26/16 16:27:00 CDT, Stop date: 04/26/16 16:27:00 CDT Inactive 04/26/2016 [facility] Saline Flush 0.9% Notes: (Same as: BD Posiflush) No Longer Active 04/26/2016 [facility] Sodium Chloride 0.154 MEQ/ML Injectable Solution 1,000 mL, 2,000 ml/hr, Infuse Over: 30 minutes, Route: IV, ONCE, Priority: STAT, Dosing Weight 63.9 kg, Start date: 04/26/16 16:21:00 CDT, Duration: 1 doses or times, Stop date: 04/26/16 16:21:00 CDT Inactive 04/26/2016 [facility] Haldol 5 mg, Route: IM, ONCE, Dosing Weight 63.9, kg, Priority: STAT, Start date: 04/26/16 16:20:00 CDT, Stop date: 04/26/16 16:20:00 CDT Inactive 04/26/2016 [facility] Famotidine 20 MG Oral Tablet [Pepcid] 20 mg = 1 tab, PO, Daily, # 60 tab, 0 Refill(s), other Active 04/20/2016 [facility] amLODIPine 5 mg oral tablet 10 mg = 2 tab, PO, Daily, # 60 tab, 0 Refill(s) Active 04/20/2016 [facility] 24 HR Nifedipine 30 MG Extended Release Tablet 30 mg = 1 tab, PO, Daily, # 30 tab, 0 Refill(s) Active 04/20/2016 [facility] Hydralazine Hydrochloride 25 MG Oral Tablet 25 mg = 1 tab, PO, Q6H, # 120 tab, 0 Refill(s) Active 04/20/2016 [facility] atorvastatin 20 mg oral tablet 20 mg = 1 tab, PO, Bedtime, # 30 tab, 0 Refill(s) Active 04/20/2016 [facility] hydroxyurea 500 mg oral capsule 500 mg = 1 cap, PO, [id number], X 60 day, # 120 cap, 0 Refill(s) Active 04/20/2016 [facility] Aspirin 81 MG Enteric Coated Tablet 81 mg = 1 tab, PO, Daily, # 30 tab, 2 Refill(s) Active 04/20/2016 [facility] clopidogrel 75 mg oral tablet 75 mg = 1 tab, PO, Daily, # 90 tab, 0 Refill(s) Active 04/20/2016 [facility] 24 HR Nifedipine 30 MG Extended Release Tablet 30 mg = 1 tab, PO, Daily, 0 Refill(s) Inactive 04/20/2016 [facility] hydroxyurea 500 mg oral capsule 500 mg = 1 cap, PO, [id number], 0 Refill(s) Inactive 04/20/2016 [facility] Hydralazine Hydrochloride 25 MG Oral Tablet 25 mg = 1 tab, PO, Q6H, 0 Refill(s) Inactive 04/20/2016 [facility] clindamycin 150 mg oral capsule 300 mg = 2 cap, PO, [id number], X 7 day, # 42 cap, 0 Refill(s) Active 04/20/2016 [facility] Plavix Notes: (Same As: Plavix) No Longer Active 04/20/2016 [facility] MAGNESIUM GLUCONATE Notes: (Sa me as: [place]) Magnesium gluconate 500mg=27mg elemental magnesium Dose= mg magnesium gluconate(___mg elemental magnesium) No Longe r Active 04/19/2016 [facility] Clindamycin Notes: (Same As: C leocin) No Longer Active 04/18/2016 [facility] 24 HR Nifedipine 30 MG Extended Release Tablet Notes: (Same as: Procardia XL) "Do Not Crush" "Avoid grapefruit and grapefruit juice" No Longer Active 04/17/2016 [facility] multivitamin Notes: Give with food. (Same As : Therapeutic multivitamins) No Longer Active 04/17/2016 [facility] Thiamine Notes: (Same As: Joyce min B1) No Longer Active 04/17/2016 [facility] Norvasc Notes: (Same as: Norva sc) No Longer Active 04/17/2016 [facility] remove patch Notes: Remove old patch before application of new patch. WASTE: F/P - P Waste Black; E - P Waste Black No Longer Active 04/17/2016 [facility] atorvastatin Notes: (Same As: Lipitor) No Longer Active 04/17/2016 [facility] Hydralazine Notes: (Same as: A presoline) May interfere w/enteral feedings Take With Food. No Longer Active 04/16/2016 [facility] 24 HR Nifedipine 30 MG Extended Release Tablet Notes: (Same as: Procardia XL) "Do Not Crush" "Avoid grapefruit and grapefruit juice" Inactive 04/16/2016 [facility] Clonidine Hydrochloride 0.2 MG Oral Tablet Notes: (Same As: Catapres) No Longer Active 04/16/2016 [facility] Notes: (Same as: Norva sc) Inactive 04/16/2016 [facility] Sodium Chloride 0.9% IV IV, 20 00 ml/hr, ONCALL, Start date: 04/16/16 15:00:00 CDT, Duration: 1, 2,000 ml No Longer Active 04/16/2016 [facility] sodium citrate Notes: Same as Anticoagulant Citrate Dextrose Soln SKILLED NURSING (ACD) Formula A No Longer Active 04/16/2016 [facility] calcium gluconate 2,400 mg + potassium c hloride 12 mEq + magnesium sulfate 6 mEq + sodium chloride Route: IV, Drug form: INJ, ONCALL, Start date: 04/16/16 15:00:00 CDT, Duration: 30 day, Stop date: 05/16/16 13:59:00 INSOLE CHANNELER No Longer Active 04/16/2016 [facility] Calcium Gluconate Notes: WASTE : F/P - Sink; E - Municipal Trash Bin Inactive 04/16/2016 [facility] Famotidine 20 MG Oral Tablet N otes: (Same as: Pepcid) No Longer Active 04/16/2016 [facility] Nicotine Notes: (Same as: Jamison patiño) "Remove old patch before application of new patch" WASTE: F/P - P Waste Black; E - P Waste Black No Longer Active 04/16/2016 [facility] Aspirin Notes: Do not crush or chew. (Same As: Ecotrin) Inactive 04/16/2016 [facility] Amlodipine Notes: (Same as: No rvasc) Inactive 04/16/2016 [facility] Aspirin 325 MG Oral Tablet Not es: Take with food. No Longer Active 04/16/2016 [facility] Enoxaparin Notes: (Same as: Lo venox) Inactive 04/16/2016 [facility] Morphine Notes: (Same as:MORPh ine Sulfate) No Longer Active 04/16/2016 [facility] Tylenol Notes: Infuse over 15 minutes Do not exceed 4gm/day of acetaminophen MEDICATION WASTE Product Size: 1000 mg Product Wasted: ___ mg No Longer Active 04/16/2016 [facility] hydroxyurea Notes: (Same as: Coleen ydrea) Chemotherapy agent/Handle with caution "Do Not Crush" WASTE: F/P - Black; E - Yellow No Longer Active 04/16/2016 [facility] hydroxyurea 1,607.5 mg, Route: PO, Drug form: CAP, Daily, Dosing Weight 64.3, kg, Priority: STAT, Start date: 04/16/16 7:05:00 CDT, Duration: 30 day, Stop date: 05/15/16 9:00:00 INSOLE CHANNELER Inactive 04/16/2016 [facility] sodium chloride 0.9% 1000 ml INJ 1,000 mL 1,000 mL, Rate: 75 ml/hr, Infuse over: 13.3 hr, Route: IV, Dosing Weight 64.3 kg, Total Volume: 1,000, Start date: 04/16/16 5:22:00 CDT, Stop date: 05/16/16 5:21:00 INSOLE CHANNELER No Longer Active 04/16/2016 [facility] Heparin 80 unit/kg Bolus (Heparin Dosing Weight) Route: IVP, PRN, 5,100 unit, 5.1 mL, Drug form: INJ, PRN, Heparin Protocol, Start date: 04/16/16 5:02:00 CDT Stop date: 05/16/16 4:01:00 INSOLE CHANNELER, 30 day No Longer Active 04/16/2016 [facility] heparin additive 25,000 unit [18 unit/kg /hr] + Premix Diluent Dextrose 5% 500 mL 500 mL, Rate: 23.15 ml/hr, Infuse over: 21.6 hr, Route: IV, Dosing Weight 64.3 kg, Total Volume: 500 mL, Start date: 04/16/16 5:02:00 CDT, Duration: 30 day, Stop date: 05/16/16 5:01:00 INSOLE CHANNELER No Longer Active 04/16/2016 [facility] Heparin 40 unit/kg Bolus (Heparin Dosing Weight) Route: IVP, PRN, 2,600 unit, 2.6 mL, Drug form: INJ, PRN, Heparin Protocol, Start date: 04/16/16 5:02:00 CDT Stop date: 05/16/16 4:01:00 INSOLE CHANNELER, 30 day No Longer Active 04/16/2016 [facility] Ondansetron Notes: (Same as: Manuel lopez) MEDICATION WASTE Product Size: 4 mg Product Wasted: ___ mg No Longer Active 04/16/2016 [facility] Acetaminophen 325 MG / Hydrocodone Elvia trate 5 MG Oral Tablet Notes: (Same as: [place] 325/5) Do not ex ceed 4gm/day of acetaminophen. No Longer Active 04/16/2016 [facility] Docusate Notes: (Same as: Cola ce) (Do Not Crush) No Longer Active 04/16/2016 [facility] Acetaminophen Notes: Do not ex ceed 4 gm/day. (Same as: Tylenol) Inactive 04/16/2016 [facility] Aspirin 325 MG Oral Tablet 325 mg = 1 tab, PO, Daily, # 30 tab, 1 Refill(s) Active 03/13/2016 [facility] Valium 5 mg, Route: IVP, Drug form: INJ, ONCE, Dosing Weight 63.636, kg, Priority: STAT, Start date: 03/12/16 19:32:00 CDT, Stop date: 03/12/16 19:32:00 CDT Inactive 03/13/2016 [facility] Aspirin 325 mg, Route: PO, Kareem g form: TAB, ONCE, Dosing Weight 63.636, kg, Priority: STAT, Start date: 03/12/16 19:30:00 CDT, Stop date: 03/12/16 19:30:00 CDT Inactive 03/13/2016 [facility] Ketorolac 4 days MEDICA TION WASTE Product Size: 30 mg Product Wasted: ___ mg Inactive 03/12/2016 [facility] Ketorolac 30 mg, Route: IM, Dr ug form: INJ, ONCE, Dosing Weight 63.636, kg, Priority: STAT, Start date: 03/12/16 18:51:00 CDT, Stop date: 03/12/16 18:51:00 CDT Inactive 03/12/2016 [facility] Zofran 4 mg, Route: IVP, Drug form: INJ, ONCE, Dosing Weight 63.636, kg, Priority: STAT, Start date: 03/12/16 18:26:00 CDT, Stop date: 03/12/16 18:26:00 CDT Inactive 03/12/2016 [facility] Sodium Chloride 0.154 MEQ/ML Injectable Solution 1,000 mL, 1,000 ml/hr, Infuse Over: 1 hr, Route: IV, ONCE, Priority: STAT, Dosing Weight 63.636 kg, Start date: 03/12/16 18:26:00 CDT, Duration: 1 doses or times, Stop date: 03/12/16 18:26:00 CDT Inactive 03/12/2016 [facility] Sodium Chloride 0.154 MEQ/ML Injectable Solution 1,000 mL, 1,000 ml/hr, Infuse Over: 1 hr, Route: IV, ONCE, Priority: STAT, Dosing Weight 63.636 kg, Start date: 03/12/16 18:16:00 CDT, Duration: 1 doses or times, Stop date: 03/12/16 18:16:00 CDT Inactive 03/12/2016 [facility] Saline Flush 0.9% Notes: (Same as: BD Posiflush) Inactive 03/12/2016 [facility] Fluconazole Notes: (Same as: D iflucan) Inactive 03/07/2016 [facility] tramadol hydrochloride 50 MG Oral Tablet 100 mg = 2 tab, PO, Q8H, PRN Pain Score 6-10, X 5 day, # 30 tab, 0 Refill(s) Active 03/07/2016 [facility] levofloxacin 250 mg oral tablet 500 mg = 2 tab, PO, [id number], X 10 day, # 20 tab, 0 Refill(s) Active 03/07/2016 [facility] fluconazole 100 mg oral tablet 200 mg = 2 tab, PO, [id number], X 7 day, # 14 tab, 0 Refill(s) Active 03/07/2016 [facility] cyclobenzaprine 10 mg oral tablet 10 mg = 1 tab, PO, TID, PRN Spasm, X 10 day, # 30 tab, 0 Refill(s) Active 03/07/2016 [facility] Aspirin 81 MG Enteric Coated Tablet 81 mg = 1 tab, PO, Daily, # 30 tab, 2 Refill(s) Active 03/07/2016 [facility] atorvastatin 20 mg oral tablet 20 mg = 1 tab, PO, Bedtime, # 30 tab, 2 Refill(s) Active 03/07/2016 [facility] Flexeril Notes: (Same As: Flex eril) No Longer Active 03/06/2016 [facility] Levaquin Notes: Do not give w/ antacids, dairy pdt & minerals Take 1 hr before or 2 hr after dairy pdt (Same as:Levaquin) No Longer Active 03/05/2016 [facility] Acetaminophen 300 MG / Codeine Phosphate 30 MG Oral Tablet [Tylenol with Codeine #3] Notes: Do not exceed 4gm/day of acetamin ophen. (Same as: Tylenol with Codeine # 3) No Longer Active 03/03/2016 [facility] Miralax Notes: Dissolve in 8 o z of water or juice. (Same as: Miralax) No Longer Active 03/03/2016 [facility] Sodium Chloride 0.154 MEQ/ML Injectable Solution 1,000 mL, Rate: 75 ml/hr, Infuse over: 13.3 hr, Route: IV, Dosing Weight 68.182 kg, Total Volume: 1,000, Start date: 03/02/16 11:00:00 CDT, Duration: 30 day, Stop date: 04/01/16 10:59:00 CDT No Longer Active 03/02/2016 [facility] Fluconazole Notes: (Same as: D iflucan) No Longer Active 03/02/2016 [facility] Saline Flush 0.9% Notes: prese rvative free. No Longer Active 03/02/2016 [facility] Saline Flush 0.9% 10 mL, Route : IVP, Drug Form: INJ, Dosing Weight 68.182, kg, PRN, PRN Line Flush, Start date: 03/01/16 16:09:00 CDT, Duration: 30 day, Stop date: 03/31/16 16:08:00 CDT Inactive 03/01/2016 [facility] Fluconazole Notes: (Same as: D iflucan) No Longer Active 03/01/2016 [facility] tramadol hydrochloride 50 MG Oral Tablet Notes: Not to exceed 400mg/day. (Same As: Ultram) No Longer Active 02/29/2016 [facility] Zosyn Notes: (Same as: Zosyn) Dosing based on Piperacillin component MEDICATION WASTE Product Size: 3375 mg Product Wasted: ___ mg No Longer Active 02/29/2016 [facility] Ceftriaxone Notes: (Same As: R ocephin). Use with 100 mL NS and infuse over 30 min MEDICATION WASTE Product Size: 1000 mg Product Wasted: ___ mg No Longer Active 02/29/2016 [facility] Fluconazole Notes: (Same as: D iflucan) Do not refrigerate No Longer Active 02/28/2016 [facility] Floranex Notes: (Same as Alisha nex) Do NOT refrigerate No Longer Active 02/28/2016 [facility] gabapentin Notes: (Same as: Ne urontin) No Longer Active 02/27/2016 [facility] NS + KCL 20mEq/L 1000ml (Premix) 1,000 mL Notes: PREMIX IV - Do Not Alter WASTE: F/P - Sink; E - Municipal Trash Bin No Longer Active 02/27/2016 [facility] Magnesium Sulfate Notes: WASTE : F/P - Sink; E - Municipal Trash Bin Inactive 02/26/2016 [facility] Aspirin Notes: Do not crush or chew. (Same As: Ecotrin) No Longer Active 02/26/2016 [facility] remove patch Notes: Remove old patch before application of new patch. WASTE: F/P - P Waste Black; E - P Waste Black Inactive 02/26/2016 [facility] Tylenol Notes: Do not exceed 4 gm/day. (Same as: Tylenol) No Longer Active 02/26/2016 [facility] Vancomycin 2001 mg: infuse ov er 2.5 hours MEDICATION WASTE Product Size: 1000 mg Product Wasted: ___ mg No Longer Active 02/25/2016 [facility] Rocephin Notes: (Same As: Roce phin). Use with 100 mL NS and infuse over 30 min MEDICATION WASTE Product Size: 2000 mg Product Wasted: ___ mg No Longer Active 02/25/2016 [facility] Sodium Chloride 0.9% IV 25 mL, Route: IVP, Start date: 02/25/16 9:29:00 CDT, Duration: 30 day, Stop date: 03/26/16 9:28:00 CDT, PRN Line Flush No Longer Active 02/25/2016 [facility] Famotidine 20 MG Oral Tablet N otes: (Same as: Pepcid) No Longer Active 02/25/2016 [facility] BD Normal Saline Flush Notes: (Same as: BD Posiflush) No Longer Active 02/25/2016 [facility] Amlodipine Notes: (Same as: No rvasc) No Longer Active 02/25/2016 [facility] sodium chloride 0.9% 1000 ml INJ 1,000 mL 1,000 mL, Rate: 75 ml/hr, Infuse over: 13.3 hr, Route: IV, Dosing Weight 68.182 kg, Total Volume: 1,000, Start date: 02/25/16 9:24:00 CDT, Duration: 30 day, Stop date: 03/26/16 9:23:00 CDT No Longer Active 02/25/2016 [facility] Aspirin Notes: Take with food. Inactive 02/25/2016 [facility] Doxycycline Notes: (Same as: V ibramycin) No milk/antacids/iron. Inactive 02/25/2016 [facility] Nicotine 14 mg, Route: TOP, Dr ug form: ERFILM, ONCE, Dosing Weight 68.182, kg, Start date: 02/25/16 1:19:00 CDT, Stop date: 02/25/16 1:19:00 CDT Inactive 02/25/2016 [facility] Nicotine Notes: (Same as: Jamison patiño) "Remove old patch before application of new patch" WASTE: F/P - P Waste Black; E - P Waste Black Inactive 02/25/2016 [facility] Rocephin Notes: (Same As: Stewart andrews). Use with 100 mL NS and infuse over 30 min MEDICATION WASTE Product Size: 2000 mg Product Wasted: ___ mg Inactive 02/25/2016 [facility] Vancomycin 2001 mg: infuse ov er 2.5 hours MEDICATION WASTE Product Size: 1000 mg Product Wasted: ___ mg No Longer Active 02/25/2016 [facility] Saline Flush 0.9% Notes: (Same as: BD Posiflush) No Longer Active 02/24/2016 [facility] ciprofloxacin 500 mg oral tablet 500 mg [...] (Same a s: Mag-Ox 400) Magnesium oxide [id number] elemental magnesium Dose=____mg magnesium oxide (___mg elemental magnesium) No Longer Active 02/19/2016 [facility] Famotidine Notes: (Same as: Pe pcid) No Longer Active 02/19/2016 [facility] Doxycycline Notes: (Same as: V ibramycin) "Do Not Crush" Inactive 02/19/2016 [facility] potassium chloride Notes: ([facility] e as: K-Dur 20) "Do Not Crush" With food and full glass of water Inactive 02/19/2016 [facility] Zofran Notes: (Same as: Zofran ) MEDICATION WASTE Product Size: 4 mg Product Wasted: ___ mg No Longer Active 02/19/2016 [facility] Keflex Notes: Take on empty st omach. (Same As: Keflex) No Longer Active 02/18/2016 [facility] Tylenol Notes: Do not exceed 4 gm/day. [...] (Same As: Debrox) No Longer Active 02/17/2016 [facility] Ceftriaxone Notes: (Same As: R ocephin). Use with 100 mL NS and infuse over 30 min MEDICATION WASTE Product Size: 1000 mg Product Wasted: ___ mg No Longer Active 02/17/2016 [facility] Saline Flush 0.9% Notes: Same as: BD [...] mg Product Wasted: ___ mg Inactive 02/14/2016 [facility] Morphine Notes: (Same as:MORPh ine Sulfate) Inactive 02/14/2016 [facility] Sodium Chloride 0.154 MEQ/ML Injectable Solution 1,000 mL, 2,000 ml/hr, Infuse Over: 30 minutes, Route: IV, 1,000, Drug form: INJ, ONCE, Priority: STAT, Dosing Weight 90.909 kg, Start date: 02/14/16 1:13:00 CDT, Duration: 1 doses or times, Stop date: 02/14/16 1:13:00 CDT Inactive 02/14/2016 [facility] Saline Flush 0.9% Notes: (Same as: BD Posiflush) Inactive 02/14/2016 [facility] cephalexin 500 mg oral tablet 500 mg = 1 tab, PO, QID, # 28 tab, 0 Refill(s) Active 05/10/2014 [facility] Acetaminophen 300 MG / Codeine Phosphate 30 MG Oral Tablet [Tylenol with Codeine #3] 1 - 2 tab, PO, Q4H, Pain, # 20 tab, 0 Re fill(s) Active 05/10/2014 [facility] Mupirocin 0.02 MG/MG Topical Ointment [Bactroban] 1 appl, TOP, TID, # 22 gm, 0 Refill(s) Active 05/10/2014 [facility] Mupirocin 0.02 MG/MG Topical Ointment [Bactroban] 1 appl, Route: TOP, ONCE, Drug form: OINT, Priority: Stat, Start date: 05/09/14 20:25:00, Stop date: 05/09/14 20:25:00 Inactive 05/10/2014 [facility] Ketorolac 4 days Inactive 05/10/2014 [facility] Saline Flush 0.9% Notes: Same as: BD Posiflush Sterile Inactive 05/10/2014 [facility] Acetaminophen 325 MG / Hydrocodone Elvia trate 5 MG Oral Tablet [[place] 5/325] Notes: (Same as: [place] 325/5) Do not ex ceed 4gm/day of acetaminophen. Inactive 05/10/2014 [facility] Diphenhydramine Hydrochloride 25 MG Oral Capsule [Benadryl] 25 mg = 1 cap, PO, Q6H, Itching, # 30 ca p, 0 Refill(s) Active 04/19/2014 [facility] tramadol hydrochloride 50 MG Oral Tablet 50 mg = 1 tab, PO, Q6H, Pain, # 40 tab, 0 Refill(s) Active 04/19/2014 [facility] Sulfamethoxazole 800 MG / Trimethoprim 1 60 MG Oral Tablet [Bactrim] 1 tab, PO, BID, # 20 tab, 0 Refill(s) Active 04/19/2014 [facility] Cephalexin 500 MG Oral Capsule [Keflex] 500 mg = 1 cap, PO, QID, # 40 cap, 0 Refill(s) Active 04/19/2014 [facility] Acetaminophen 325 MG / Hydrocodone Elvia trate 5 MG Oral Tablet [[place] 5/325] 1 tab, Route: PO, Drug Form: TAB, Dosing Weight 90.909, kg, ONCE, STAT, Start date: 02/14/14 15:05:00, Stop date: 02/14/14 15:05:00 Inactive 02/14/2014 [facility] Aspirin / Calcium Carbonate No annie: Take with food. Inactive 02/14/2014 [facility] Nitroglycerin Notes: (Same as: Nitroquick, Nitrostat) "Do Not Crush" Sublingual tablet Inactive 02/14/2014 [facility] Saline Flush 0.9% Notes: (Same as: BD Posiflush) Inactive 02/14/2014 [facility] Allergies, Adverse Reactions, Alerts Substance Category Reaction Severity Reaction type Status Date Reported Comments Source Tylenol Assertion Drug allergy Active [facility] Immunizations Immunization Date Given Site Status Last Updated Comments Source influenza virus vaccine, inactivated 05/07/2016 Left Deltoid completed [facility] influenza virus vaccine, inactivated 04/20/2016 Right deltoid completed [facility] pneumococcal 23-valent vaccine 02/17/2016 Left Deltoid completed [facility] tetanus-diphtheria toxoids Left deltoid completed [facility] Results Order Name Results Value Reference Range Date Interpretation Comments Source URINE AND STOOL UA Leuk Est Trace *ABN* (02/18/17 8:18 PM) Negative 02/19/2017 [facility] URINE AND STOOL UA Spec Grav 1.017 <=1.030 02/19/2017 [facility] URINE AND STOOL UA Turbidity Clear (02/18/17 8:18 PM) Clear 02/19/2017 [facility] URINE AND STOOL UA Color Yellow *NA* (02/18/17 8:18 PM) Yellow 02/19/2017 [facility] URINE AND STOOL UA Nitrite Negative (02/18/17 8:18 PM) Negative 02/19/2017 [facility] URINE AND STOOL UA Urobilinogen 2.0 0.1 - 1.0 02/19/2017 [facility] URINE AND STOOL UA Blood Small *ABN* (02/18/17 8:18 PM) Negative 02/19/2017 [facility] URINE AND STOOL UA Ketones Trace mg/dL Negative mg/dL 02/19/2017 [facility] URINE AND STOOL UA Bili Negative *NA* (02/18/17 8:18 PM) Negative 02/19/2017 [facility] URINE AND STOOL UA Protein 100 mg/dL Negative mg/dL 02/19/2017 [facility] URINE AND STOOL UA Glucose Negative mg/dL Negative mg/dL 02/19/2017 [facility] URINE AND STOOL UA pH 6.0 5.0 - 8.0 02/19/2017 [facility] URINE AND STOOL UA Amorph Gerri Occasional /HPF None Seen /HPF 02/19/2017 [facility] URINE AND STOOL UA Bacteria Few /HPF None Seen /HPF 02/19/2017 [facility] URINE AND STOOL UA RBC 4 0 - 2 02/19/2017 [facility] URINE AND STOOL UA WBC 5 0 - 5 02/19/2017 [facility] URINE AND STOOL UA Sq Epi Occasional /LPF Few /LPF 02/19/2017 [facility] CARDIAC ENZYMES CK MB Index 0.7 0.0 - 2.5 02/18/2017 [facility] CARDIAC ENZYMES Total CK 144 12 - 191 02/18/2017 [facility] CARDIAC ENZYMES CK MB 1.0 0.5 - 3.6 02/18/2017 [facility] CARDIAC ENZYMES Troponin-I <0.02 0.00 - 0.40 02/18/2017 [facility] CHEM PANEL Magnesium Lvl 2.4 1.8 - 2.4 02/18/2017 [facility] CHEM PANEL Phosphorus 3.1 2.5 - 4.5 02/18/2017 [facility] CHEM PANEL Lipase Lvl 93 73 - 393 02/18/2017 [facility] CHEM PANEL eGFR 64 02/18/2017 Result Comment: [...] should be multiplied by the estimated BMI. [facility] CHEM PANEL B/C Ratio 14 6 - 25 02/18/2017 [facility] CHEM PANEL AGAP 12.2 10.0 - 20.0 02/18/2017 [facility] CHEM PANEL A/G Ratio 0.8 0.7 - 1.6 02/18/2017 [facility] CHEM PANEL Globulin 4.6 2.7 - 4.2 02/18/2017 [facility] CHEM PANEL Bili Total 0.4 0.2 - 1.3 02/18/2017 [facility] CHEM PANEL ALT 72 0 - 65 02/18/2017 [facility] CHEM PANEL Albumin Lvl 3.6 3.5 - 5.0 02/18/2017 [facility] CHEM PANEL Alk Phos 152 39 - 136 02/18/2017 [facility] CHEM PANEL AST 38 0 - 37 02/18/2017 [facility] CHEM PANEL CO2 25 24 - 32 02/18/2017 [facility] CHEM PANEL Glucose Lvl 85 70 - 99 02/18/2017 [facility] CHEM PANEL Creatinine Lvl 1.44 0.50 - 1.40 02/18/2017 [facility] CHEM PANEL BUN 20 7 - 22 02/18/2017 [facility] CHEM PANEL Total Protein 8.2 6.4 - 8.4 02/18/2017 [facility] CHEM PANEL Sodium Lvl 140 135 - 145 02/18/2017 [facility] CHEM PANEL Potassium Lvl 4.2 3.5 - 5.1 02/18/2017 [facility] CHEM PANEL Calcium Lvl 9.5 8.5 - 10.5 02/18/2017 [facility] CHEM PANEL Chloride Lvl 107 95 - 109 02/18/2017 [facility] HEMATOLOGY Monocytes 10.8 2.0 - 12.0 02/18/2017 [facility] HEMATOLOGY Eosinophils 6.4 0.0 - 4.0 02/18/2017 [facility] HEMATOLOGY Basophils 1.2 0.0 - 1.0 02/18/2017 [facility] HEMATOLOGY Segs-Bands # 2.8 1.5 - 8.1 02/18/2017 [facility] HEMATOLOGY Monocytes # 0.6 0.0 - 0.8 02/18/2017 [facility] HEMATOLOGY Eosinophils # 0.4 0.0 - 0.5 02/18/2017 [facility] HEMATOLOGY Basophils # 0.1 0.0 - 0.2 02/18/2017 [facility] HEMATOLOGY Lymphocytes # 2.0 1.0 - 5.5 02/18/2017 [facility] HEMATOLOGY Segs 47.9 45.0 - 75.0 02/18/2017 [facility] Lymphocytes 33.7 20.0 - 40.0 02/18/2017 [facility] HEMATOLOGY Hct 41.5 42.0 - 54.0 02/18/2017 [facility] HEMATOLOGY MCV 86.5 80.0 - 94.0 02/18/2017 [facility] HEMATOLOGY MCH 28.8 27.0 - 31.0 02/18/2017 [facility] HEMATOLOGY RDW 16.9 11.5 - 14.5 02/18/2017 [facility] HEMATOLOGY Platelet 315 133 - 450 02/18/2017 [facility] MCHC 33.3 32.0 - 36.0 02/18/2017 [facility] HEMATOLOGY MPV 9.1 7.4 - 10.4 02/18/2017 [facility] HEMATOLOGY WBC 5.9 3.7 - 10.4 02/18/2017 [facility] HEMATOLOGY RBC 4.79 4.70 - 6.10 02/18/2017 [facility] HEMATOLOGY Hgb 13.8 14.0 - 18.0 02/18/2017 [facility] CHEM PANEL Creatinine Lvl 2.10 0.50 - 1.40 10/03/2016 [facility] CHEM PANEL BUN 31 7 - 22 10/03/2016 [facility] CHEM PANEL eGFR 40 10/03/2016 Result Comment: [...] should be multiplied by the estimated BMI. [facility] CHEM PANEL Calcium Lvl 9.1 8.5 - 10.5 10/03/2016 [facility] CHEM PANEL CO2 21 24 - 32 10/03/2016 [facility] CHEM PANEL Potassium Lvl 4.5 3.5 - 5.1 10/03/2016 [facility] CHEM PANEL Chloride Lvl 100 95 - 109 10/03/2016 [facility] CHEM PANEL Sodium Lvl 133 135 - 145 10/03/2016 [facility] CHEM PANEL Glucose Lvl 87 70 - 99 10/03/2016 [facility] CHEM PANEL AGAP 16.5 10.0 - 20.0 10/03/2016 [facility] HEMATOLOGY PTT 33.2 22.9 - 35.8 10/03/2016 [facility] HEMATOLOGY PT 13.3 12.0 - 14.7 10/03/2016 [facility] HEMATOLOGY INR 0.99 0.85 - 1.17 10/03/2016 [facility] HEMATOLOGY MPV 8.4 7.4 - 10.4 10/03/2016 [facility] HEMATOLOGY Platelet 437 133 - 450 10/03/2016 [facility] HEMATOLOGY MCHC 33.4 32.0 - 36.0 10/03/2016 [facility] HEMATOLOGY MCH 28.3 27.0 - 31.0 10/03/2016 [facility] HEMATOLOGY MCV 84.6 80.0 - 94.0 10/03/2016 [facility] HEMATOLOGY RDW 15.9 11.5 - 14.5 10/03/2016 [facility] HEMATOLOGY Hct 36.0 42.0 - 54.0 10/03/2016 [facility] HEMATOLOGY Hgb 12.0 14.0 - 18.0 10/03/2016 [facility] HEMATOLOGY RBC 4.26 4.70 - 6.10 10/03/2016 [facility] HEMATOLOGY WBC 8.3 3.7 - 10.4 10/03/2016 [facility] HEMATOLOGY Eosinophils # 0.3 0.0 - 0.5 10/03/2016 [facility] HEMATOLOGY Segs-Bands # 5.3 1.5 - 8.1 10/03/2016 [facility] HEMATOLOGY Monocytes # 0.9 0.0 - 0.8 10/03/2016 [facility] HEMATOLOGY Lymphocytes # 1.7 1.0 - 5.5 10/03/2016 [facility] HEMATOLOGY Basophils # 0.1 0.0 - 0.2 10/03/2016 [facility] HEMATOLOGY Basophils 1.0 0.0 - 1.0 10/03/2016 [facility] HEMATOLOGY Eosinophils 3.5 0.0 - 4.0 10/03/2016 [facility] HEMATOLOGY Lymphocytes 20.7 20.0 - 40.0 10/03/2016 [facility] HEMATOLOGY Monocytes 10.5 2.0 - 12.0 10/03/2016 [facility] HEMATOLOGY Segs 64.3 45.0 - 75.0 10/03/2016 [facility] DRUG SCREEN U Amph Scr Nega tive *NA* (09/26/16 6:59 PM) Negative 09/26/2016 [facility] DRUG SCREEN U Cannab Scr Nega tive *NA* (09/26/16 6:59 PM) Negative 09/26/2016 [facility] DRUG SCREEN U Cocaine Scr Nega tive *NA* (09/26/16 6:59 PM) Negative 09/26/2016 [facility] DRUG SCREEN U Benzodia Scr Nega tive *NA* (09/26/16 6:59 PM) Negative 09/26/2016 [facility] DRUG SCREEN U Mary Scr Nega tive *NA* (09/26/16 6:59 PM) Negative 09/26/2016 [facility] DRUG SCREEN UDS Note See Note *NA* (09/26/16 6:59 PM) 09/26/2016 [facility] DRUG SCREEN U Phencyc Scr Nega tive *NA* (09/26/16 6:59 PM) Negative 09/26/2016 [facility] DRUG SCREEN U Opiate Scr Nega tive *NA* (09/26/16 6:59 PM) Negative 09/26/2016 [facility] CHEM PANEL Lipase Lvl 88 73 - 393 09/26/2016 [facility] ELECTROLYTES Sodium Lvl 139 135 - 145 09/26/2016 [facility] ELECTROLYTES Potassium Lvl 4.6 3.5 - 5.1 09/26/2016 [facility] ELECTROLYTES Calcium Lvl 8.8 8.5 - 10.5 09/26/2016 [facility] ELECTROLYTES Chloride Lvl 106 95 - 109 09/26/2016 [facility] ELECTROLYTES eGFR 34 09/26/2016 Result Comment: The [...] should be multiplied by the estimated BMI. [facility] ELECTROLYTES BUN 32 7 - 22 09/26/2016 [facility] ELECTROLYTES Glucose Lvl 91 70 - 99 09/26/2016 [facility] ELECTROLYTES Albumin Lvl 3.0 3.5 - 5.0 09/26/2016 [facility] ELECTROLYTES AST 75 0 - 37 09/26/2016 [facility] ELECTROLYTES Creatinine Lvl 2.4 2 0.50 - 1.40 09/26/2016 [facility] ELECTROLYTES ALT 117 0 - 65 09/26/2016 [facility] ELECTROLYTES CO2 22 24 - 32 09/26/2016 [facility] ELECTROLYTES Bili Total 0.4 0.2 - 1.3 09/26/2016 [facility] ELECTROLYTES Alk Phos 153 39 - 136 09/26/2016 [facility] ELECTROLYTES Total Protein 8.3 6.4 - 8.4 09/26/2016 [facility] ELECTROLYTES B/C Ratio 13 6 - 25 09/26/2016 [facility] ELECTROLYTES AGAP 15.6 10.0 - 20.0 09/26/2016 [facility] ELECTROLYTES A/G Ratio 0.6 0.7 - 1.6 09/26/2016 [facility] ELECTROLYTES Globulin 5.3 2.7 - 4.2 09/26/2016 [facility] HEMATOLOGY RDW 16.3 11.5 - 14.5 09/26/2016 [facility] HEMATOLOGY MPV 7.6 7.4 - 10.4 09/26/2016 [facility] HEMATOLOGY MCHC 31.5 32.0 - 36.0 09/26/2016 [facility] HEMATOLOGY Platelet 499 133 - 450 09/26/2016 [facility] HEMATOLOGY MCH 27.6 27.0 - 31.0 09/26/2016 [facility] HEMATOLOGY Hct 34.6 42.0 - 54.0 09/26/2016 [facility] HEMATOLOGY MCV 87.7 80.0 - 94.0 09/26/2016 [facility] HEMATOLOGY Hgb 10.9 14.0 - 18.0 09/26/2016 [facility] HEMATOLOGY RBC 3.95 4.70 - 6.10 09/26/2016 [facility] HEMATOLOGY WBC 7.9 3.7 - 10.4 09/26/2016 [facility] HEMATOLOGY Lymphocytes # 1.7 1.0 - 5.5 09/26/2016 [facility] HEMATOLOGY Eosinophils # 0.7 0.0 - 0.5 09/26/2016 [facility] HEMATOLOGY Basophils # 0.1 0.0 - 0.2 09/26/2016 [facility] HEMATOLOGY Segs-Bands # 4.6 1.5 - 8.1 09/26/2016 [facility] HEMATOLOGY Monocytes # 0.8 0.0 - 0.8 09/26/2016 [facility] HEMATOLOGY Basophils 1.2 0.0 - 1.0 09/26/2016 [facility] HEMATOLOGY Lymphocytes 21.8 20.0 - 40.0 09/26/2016 [facility] HEMATOLOGY Monocytes 9.7 2.0 - 12.0 09/26/2016 [facility] HEMATOLOGY Eosinophils 8.8 0.0 - 4.0 09/26/2016 [facility] HEMATOLOGY Segs 58.5 45.0 - 75.0 09/26/2016 [facility] TOXICOLOGY Acetaminoph Lvl <2 (09/26/16 6:13 PM) 10 - 20 09/26/2016 [facility] TOXICOLOGY Etoh (%) <0.003 09/26/2016 [facility] TOXICOLOGY Ethanol Lvl <3 09/26/2016 [facility] TOXICOLOGY Salicylate Lvl <1.7 0.0 - 30.0 09/26/2016 [facility] ELECTROLYTES AGAP 13.2 10.0 - 20.0 08/18/2016 [facility] ELECTROLYTES Phosphorus 3.6 2.5 - 4.5 08/18/2016 [facility] ELECTROLYTES eGFR 44 08/18/2016 Result Comment: The [...] should be multiplied by the estimated BMI. [facility] ELECTROLYTES Creatinine Lvl 1.9 4 0.50 - 1.40 08/18/2016 [facility] ELECTROLYTES BUN 26 7 - 22 08/18/2016 [facility] ELECTROLYTES Calcium Lvl 9.2 8.5 - 10.5 08/18/2016 [facility] ELECTROLYTES Glucose Lvl 87 70 - 99 08/18/2016 [facility] ELECTROLYTES Sodium Lvl 145 135 - 145 08/18/2016 [facility] ELECTROLYTES Potassium Lvl 4.2 3.5 - 5.1 08/18/2016 [facility] ELECTROLYTES Chloride Lvl 114 95 - 109 08/18/2016 [facility] ELECTROLYTES CO2 22 24 - 32 08/18/2016 [facility] ELECTROLYTES Albumin Lvl 2.9 3.5 - 5.0 08/18/2016 [facility] HEMATOLOGY Monocytes 12.4 2.0 - 12.0 08/18/2016 [facility] HEMATOLOGY Lymphocytes 28.9 20.0 - 40.0 08/18/2016 [facility] HEMATOLOGY Segs 48.2 45.0 - 75.0 08/18/2016 [facility] HEMATOLOGY Segs-Bands # 4.1 1.5 - 8.1 08/18/2016 [facility] HEMATOLOGY Basophils 1.3 0.0 - 1.0 08/18/2016 [facility] HEMATOLOGY Eosinophils 9.2 0.0 - 4.0 08/18/2016 [facility] HEMATOLOGY Eosinophils # 0.8 0.0 - 0.5 08/18/2016 [facility] HEMATOLOGY Monocytes # 1.1 0.0 - 0.8 08/18/2016 [facility] HEMATOLOGY Lymphocytes # 2.5 1.0 - 5.5 08/18/2016 [facility] HEMATOLOGY Basophils # 0.1 0.0 - 0.2 08/18/2016 [facility] HEMATOLOGY MPV 8.0 7.4 - 10.4 08/18/2016 [facility] HEMATOLOGY Platelet 453 133 - 450 08/18/2016 [facility] HEMATOLOGY Hct 33.9 42.0 - 54.0 08/18/2016 [facility] HEMATOLOGY Hgb 11.0 14.0 - 18.0 08/18/2016 [facility] HEMATOLOGY RBC 3.96 4.70 - 6.10 08/18/2016 [facility] HEMATOLOGY WBC 8.6 3.7 - 10.4 08/18/2016 [facility] HEMATOLOGY RDW 17.6 11.5 - 14.5 08/18/2016 [facility] HEMATOLOGY MCHC 32.6 32.0 - 36.0 08/18/2016 [facility] HEMATOLOGY MCH 27.9 27.0 - 31.0 08/18/2016 [facility] HEMATOLOGY MCV 85.5 80.0 - 94.0 08/18/2016 [facility] CHEM PANEL Calcium Lvl 9.0 8.5 - 10.5 08/17/2016 [facility] CHEM PANEL Albumin Lvl 2.9 3.5 - 5.0 08/17/2016 [facility] CHEM PANEL Chloride Lvl 110 95 - 109 08/17/2016 [facility] CHEM PANEL CO2 23 24 - 32 08/17/2016 [facility] CHEM PANEL Glucose Lvl 83 70 - 99 08/17/2016 [facility] CHEM PANEL BUN 27 7 - 22 08/17/2016 [facility] CHEM PANEL Potassium Lvl 4.3 3.5 - 5.1 08/17/2016 [facility] CHEM PANEL Sodium Lvl 144 135 - 145 08/17/2016 [facility] CHEM PANEL Phosphorus 3.9 2.5 - 4.5 08/17/2016 [facility] CHEM PANEL eGFR 47 08/17/2016 Result Comment: [...] should be multiplied by the estimated BMI. [facility] CHEM PANEL Creatinine Lvl 1.84 0.50 - 1.40 08/17/2016 [facility] CHEM PANEL AGAP 15.3 10.0 - 20.0 08/17/2016 [facility] HEMATOLOGY Eosinophils # 0.8 0.0 - 0.5 08/17/2016 [facility] HEMATOLOGY Monocytes # 0.9 0.0 - 0.8 08/17/2016 [facility] HEMATOLOGY Basophils # 0.1 0.0 - 0.2 08/17/2016 [facility] HEMATOLOGY Segs 53.1 45.0 - 75.0 08/17/2016 [facility] HEMATOLOGY Monocytes 10.1 2.0 - 12.0 08/17/2016 [facility] HEMATOLOGY Lymphocytes 26.4 20.0 - 40.0 08/17/2016 [facility] HEMATOLOGY Eosinophils 9.3 0.0 - 4.0 08/17/2016 [facility] HEMATOLOGY Basophils 1.1 0.0 - 1.0 08/17/2016 [facility] HEMATOLOGY Segs-Bands # 4.5 1.5 - 8.1 08/17/2016 [facility] HEMATOLOGY Lymphocytes # 2.2 1.0 - 5.5 08/17/2016 [facility] HEMATOLOGY WBC 8.4 3.7 - 10.4 08/17/2016 [facility] HEMATOLOGY RBC 4.21 4.70 - 6.10 08/17/2016 [facility] HEMATOLOGY MCH 27.5 27.0 - 31.0 08/17/2016 [facility] HEMATOLOGY Hct 36.4 42.0 - 54.0 08/17/2016 [facility] HEMATOLOGY MCV 86.4 80.0 - 94.0 08/17/2016 [facility] HEMATOLOGY Hgb 11.6 14.0 - 18.0 08/17/2016 [facility] HEMATOLOGY MCHC 31.8 32.0 - 36.0 08/17/2016 [facility] HEMATOLOGY RDW 17.4 11.5 - 14.5 08/17/2016 [facility] HEMATOLOGY Platelet 500 133 - 450 08/17/2016 [facility] MPV 8.2 7.4 - 10.4 08/17/2016 [facility] CHEM PANEL eGFR 43 08/16/2016 Result Comment: [...] should be multiplied by the estimated BMI. [facility] CHEM PANEL Creatinine Lvl 1.98 0.50 - 1.40 08/16/2016 [facility] CHEM PANEL CO2 24 24 - 32 08/16/2016 [facility] CHEM PANEL Chloride Lvl 111 95 - 109 08/16/2016 [facility] CHEM PANEL Calcium Lvl 8.8 8.5 - 10.5 08/16/2016 [facility] CHEM PANEL BUN 26 7 - 22 08/16/2016 [facility] CHEM PANEL Glucose Lvl 82 70 - 99 08/16/2016 [facility] CHEM PANEL Sodium Lvl 144 135 - 145 08/16/2016 [facility] CHEM PANEL Potassium Lvl 4.4 3.5 - 5.1 08/16/2016 [facility] CHEM PANEL AGAP 13.4 10.0 - 20.0 08/16/2016 [facility] HEMATOLOGY MPV 8.1 7.4 - 10.4 08/16/2016 [facility] HEMATOLOGY Platelet 456 133 - 450 08/16/2016 [facility] HEMATOLOGY RBC 3.95 4.70 - 6.10 08/16/2016 [facility] HEMATOLOGY WBC 8.6 3.7 - 10.4 08/16/2016 [facility] HEMATOLOGY Hgb 10.9 14.0 - 18.0 08/16/2016 [facility] HEMATOLOGY Hct 33.4 42.0 - 54.0 08/16/2016 [facility] HEMATOLOGY MCV 84.6 80.0 - 94.0 08/16/2016 [facility] HEMATOLOGY MCH 27.6 27.0 - 31.0 08/16/2016 [facility] HEMATOLOGY RDW 17.5 11.5 - 14.5 08/16/2016 [facility] HEMATOLOGY MCHC 32.6 32.0 - 36.0 08/16/2016 [facility] HEMATOLOGY Eosinophils # 0.7 0.0 - 0.5 08/16/2016 [facility] HEMATOLOGY Lymphocytes # 2.3 1.0 - 5.5 08/16/2016 [facility] HEMATOLOGY Monocytes # 0.9 0.0 - 0.8 08/16/2016 [facility] HEMATOLOGY Basophils # 0.1 0.0 - 0.2 08/16/2016 [facility] HEMATOLOGY Eosinophils 7.8 0.0 - 4.0 08/16/2016 [facility] HEMATOLOGY Lymphocytes 27.1 20.0 - 40.0 08/16/2016 [facility] HEMATOLOGY Monocytes 10.9 2.0 - 12.0 08/16/2016 [facility] HEMATOLOGY Segs-Bands # 4.6 1.5 - 8.1 08/16/2016 [facility] HEMATOLOGY Basophils 1.2 0.0 - 1.0 08/16/2016 [facility] HEMATOLOGY Segs 53.0 45.0 - 75.0 08/16/2016 [facility] TOXICOLOGY Vanco Tr 14.6 08/15/2016 [facility] TOXICOLOGY Vanco Tr TND 1000 08/15/2016 [facility] TOXICOLOGY Vanco Tr TND 2200 08/14/2016 [facility] TOXICOLOGY Vanco Tr 19.5 08/14/2016 [facility] CHEM PANEL Magnesium Lvl 2.3 1.8 - 2.4 08/13/2016 [facility] CHEM PANEL Phosphorus 3.9 2.5 - 4.5 08/13/2016 [facility] CHEM PANEL Albumin Lvl 2.8 3.5 - 5.0 08/13/2016 [facility] HEMATOLOGY Sed Rate 78 0 - 15 08/12/2016 [facility] IMMUNOLOGY C-REACTIVE PROTEIN 10.8 <=2.9 mg/L 08/12/2016 [facility] CHEM PANEL AST 17 0 - 37 08/12/2016 [facility] CHEM PANEL Alk Phos 107 39 - 136 08/12/2016 [facility] CHEM PANEL Bili Total 0.2 0.2 - 1.3 08/12/2016 [facility] CHEM PANEL Total Protein 7.7 6.4 - 8.4 08/12/2016 [facility] CHEM PANEL ALT 28 0 - 65 08/12/2016 [facility] CHEM PANEL B/C Ratio 23 6 - 25 08/12/2016 [facility] CHEM PANEL Globulin 4.5 2.7 - 4.2 08/12/2016 [facility] CHEM PANEL A/G Ratio 0.7 0.7 - 1.6 08/12/2016 [facility] ELECTROLYTES AGAP 16.9 10.0 - 20.0 06/13/2016 [facility] ELECTROLYTES Potassium Lvl 3.9 3.5 - 5.1 06/13/2016 [facility] ELECTROLYTES Sodium Lvl 138 135 - 145 06/13/2016 [facility] ELECTROLYTES Creatinine Lvl 2.6 0 0.50 - 1.40 06/13/2016 [facility] ELECTROLYTES eGFR 27 06/13/2016 Result Comment: [...] should be multiplied by the estimated BMI. [facility] ELECTROLYTES CO2 20 24 - 32 06/13/2016 [facility] ELECTROLYTES Calcium Lvl 9.7 8.5 - 10.5 06/13/2016 [facility] ELECTROLYTES Chloride Lvl 105 95 - 109 06/13/2016 [facility] ELECTROLYTES BUN 27 7 - 22 06/13/2016 [facility] ELECTROLYTES Glucose Lvl 73 70 - 99 06/13/2016 [facility] CHEM PANEL eGFR 27 06/12/2016 Result [...] should be multiplied by the estimated BMI. [facility] CHEM PANEL Calcium Lvl 9.9 8.5 - 10.5 06/12/2016 [facility] CHEM PANEL CO2 24 24 - 32 06/12/2016 [facility] CHEM PANEL Chloride Lvl 107 95 - 109 06/12/2016 [facility] CHEM PANEL Potassium Lvl 4.3 3.5 - 5.1 06/12/2016 Result Comment: Specimen Slightly Hemolyzed. [facility] CHEM PANEL Sodium Lvl 141 135 - 145 06/12/2016 [facility] CHEM PANEL BUN 28 7 - 22 06/12/2016 [facility] CHEM PANEL Glucose Lvl 83 70 - 99 06/12/2016 [facility] CHEM PANEL Creatinine Lvl 2.60 0.50 - 1.40 06/12/2016 [facility] CHEM PANEL AGAP 14.3 10.0 - 20.0 06/12/2016 [facility] Lymphocytes 25.1 20.0 - 40.0 06/12/2016 [facility] HEMATOLOGY Monocytes 9.0 2.0 - 12.0 06/12/2016 [facility] HEMATOLOGY Segs 51.3 45.0 - 75.0 06/12/2016 [facility] Monocytes # 0.5 0.0 - 0.8 06/12/2016 [facility] Lymphocytes # 1.4 1.0 - 5.5 06/12/2016 [facility] HEMATOLOGY Eosinophils # 0.6 0.0 - 0.5 06/12/2016 [facility] Basophils # 0.1 0.0 - 0.2 06/12/2016 [facility] Segs-Bands # 2.8 1.5 - 8.1 06/12/2016 [facility] Basophils 2.7 0.0 - 1.0 06/12/2016 [facility] Eosinophils 11.9 0.0 - 4.0 06/12/2016 [facility] INR 1.05 0.85 - 1.17 06/12/2016 [facility] PTT 35.5 22.9 - 35.8 06/12/2016 [facility] PT 13.9 12.0 - 14.7 06/12/2016 [facility] MPV 8.1 7.4 - 10.4 06/12/2016 [facility] MCHC 31.8 32.0 - 36.0 06/12/2016 [facility] Platelet 481 133 - 450 06/12/2016 [facility] RDW 21.2 11.5 - 14.5 06/12/2016 [facility] MCH 26.9 27.0 - 31.0 06/12/2016 [facility] MCV 84.4 80.0 - 94.0 06/12/2016 [facility] Hct 34.3 42.0 - 54.0 06/12/2016 [facility] RBC 4.07 4.70 - 6.10 06/12/2016 [facility] HEMATOLOGY WBC 5.5 3.7 - 10.4 06/12/2016 [facility] Hgb 10.9 14.0 - 18.0 06/12/2016 [facility] TOXICOLOGY Vanco Tr TND 1600 06/09/2016 [facility] TOXICOLOGY Vanco Tr 23.3 06/09/2016 [facility] CHEM PANEL eGFR 31 06/09/2016 Result [...] should be multiplied by the estimated BMI. [facility] CHEM PANEL AGAP 14.4 10.0 - 20.0 06/09/2016 [facility] CHEM PANEL Chloride Lvl 108 95 - 109 06/09/2016 [facility] CHEM PANEL Sodium Lvl 141 135 - 145 06/09/2016 [facility] CHEM PANEL BUN 20 7 - 22 06/09/2016 [facility] CHEM PANEL Creatinine Lvl 2.30 0.50 - 1.40 06/09/2016 [facility] CHEM PANEL Glucose Lvl 84 70 - 99 06/09/2016 [facility] CHEM PANEL Calcium Lvl 9.4 8.5 - 10.5 06/09/2016 [facility] CHEM PANEL Potassium Lvl 3.4 3.5 - 5.1 06/09/2016 [facility] CHEM PANEL CO2 22 24 - 32 06/09/2016 [facility] HEMATOLOGY Eosinophils 6.1 0.0 - 4.0 06/07/2016 [facility] HEMATOLOGY Monocytes 8.5 2.0 - 12.0 06/07/2016 [facility] Monocytes # 0.8 0.0 - 0.8 06/07/2016 [facility] HEMATOLOGY Segs-Bands # 5.8 1.5 - 8.1 06/07/2016 [facility] HEMATOLOGY Basophils 2.4 0.0 - 1.0 06/07/2016 [facility] HEMATOLOGY Basophils # 0.2 0.0 - 0.2 06/07/2016 [facility] HEMATOLOGY Eosinophils # 0.5 0.0 - 0.5 06/07/2016 [facility] HEMATOLOGY Lymphocytes # 1.6 1.0 - 5.5 06/07/2016 [facility] Lymphocytes 18.0 20.0 - 40.0 06/07/2016 [facility] HEMATOLOGY Segs 65.0 45.0 - 75.0 06/07/2016 [facility] HEMATOLOGY Platelet 521 133 - 450 06/07/2016 [facility] HEMATOLOGY RDW 22.0 11.5 - 14.5 06/07/2016 [facility] Hct 31.6 42.0 - 54.0 06/07/2016 [facility] MCHC 32.5 32.0 - 36.0 06/07/2016 [facility] MCH 26.6 27.0 - 31.0 06/07/2016 [facility] MCV 81.8 80.0 - 94.0 06/07/2016 [facility] MPV 7.9 7.4 - 10.4 06/07/2016 [facility] Hgb 10.3 14.0 - 18.0 06/07/2016 [facility] RBC 3.86 4.70 - 6.10 06/07/2016 [facility] WBC 9.0 3.7 - 10.4 06/07/2016 [facility] TOXICOLOGY Vanco Tr TND 18395 600 06/05/2016 [facility] TOXICOLOGY Vanco Tr 18.9 06/05/2016 [facility] TOXICOLOGY Vanco Tr TND 88856 130 2016 [facility] TOXICOLOGY Vanco Tr 29.3 2016 [facility] Lymphocytes 18.4 20.0 - 40.0 05/31/2016 [facility] HEMATOLOGY Segs 61.2 45.0 - 75.0 05/31/2016 [facility] HEMATOLOGY Monocytes 8.7 2.0 - 12.0 05/31/2016 [facility] HEMATOLOGY Basophils 2.4 0.0 - 1.0 05/31/2016 [facility] HEMATOLOGY Eosinophils 9.3 0.0 - 4.0 05/31/2016 [facility] HEMATOLOGY Segs-Bands # 6.0 1.5 - 8.1 05/31/2016 [facility] HEMATOLOGY Lymphocytes # 1.8 1.0 - 5.5 05/31/2016 [facility] HEMATOLOGY Monocytes # 0.9 0.0 - 0.8 05/31/2016 [facility] HEMATOLOGY Basophils # 0.2 0.0 - 0.2 05/31/2016 [facility] HEMATOLOGY Eosinophils # 0.9 0.0 - 0.5 05/31/2016 [facility] HEMATOLOGY Hgb 9.7 14.0 - 18.0 05/31/2016 [facility] WBC 9.8 3.7 - 10.4 05/31/2016 [facility] RBC 3.57 4.70 - 6.10 05/31/2016 [facility] RDW 22.3 11.5 - 14.5 05/31/2016 [facility] MCH 27.2 27.0 - 31.0 05/31/2016 [facility] MCHC 33.3 32.0 - 36.0 05/31/2016 [facility] Hct 29.1 42.0 - 54.0 05/31/2016 [facility] MCV 81.5 80.0 - 94.0 05/31/2016 [facility] MPV 7.5 7.4 - 10.4 05/31/2016 [facility] Platelet 562 133 - 450 05/31/2016 [facility] Plt Morph Twyla l (05/28/16 12:55 PM) 05/28/2016 [facility] RBC Morph Twyla l (05/28/16 12:55 PM) 05/28/2016 [facility] CHEM PANEL eGFR 27 05/27/2016 Result [...] should be multiplied by the estimated BMI. [facility] CHEM PANEL Creatinine Lvl 2.60 0.50 - 1.40 05/27/2016 [facility] CHEM PANEL BUN 20 7 - 22 05/27/2016 [facility] CHEM PANEL Glucose Lvl 75 70 - 99 05/27/2016 [facility] CHEM PANEL Sodium Lvl 138 135 - 145 05/27/2016 [facility] CHEM PANEL CO2 22 24 - 32 05/27/2016 [facility] CHEM PANEL Chloride Lvl 104 95 - 109 05/27/2016 [facility] CHEM PANEL AGAP 15.0 10.0 - 20.0 05/27/2016 [facility] CHEM PANEL Calcium Lvl 8.5 8.5 - 10.5 05/27/2016 [facility] CHEM PANEL Potassium Lvl 3.0 3.5 - 5.1 05/27/2016 Result Comment: Critical Result(s) hazel d to Alondra Noguera at 05/27/2016 08:53 bySN/RB. Read back OK. [facility] TOXICOLOGY Vanco Lvl 19.4 05/26/2016 [facility] ELECTROLYTES Sodium Lvl 139 135 - 145 05/26/2016 [facility] ELECTROLYTES Chloride Lvl 104 95 - 109 05/26/2016 [facility] ELECTROLYTES Calcium Lvl 9.0 8.5 - 10.5 05/26/2016 [facility] ELECTROLYTES Potassium Lvl 3.3 3.5 - 5.1 05/26/2016 [facility] ELECTROLYTES eGFR 28 05/26/2016 Result Comment: The [...] should be multiplied by the estimated BMI. [facility] ELECTROLYTES BUN 20 7 - 22 05/26/2016 [facility] ELECTROLYTES AGAP 16.3 10.0 - 20.0 05/26/2016 [facility] ELECTROLYTES CO2 22 24 - 32 05/26/2016 [facility] ELECTROLYTES Creatinine Lvl 2.5 6 0.50 - 1.40 05/26/2016 [facility] ELECTROLYTES Glucose Lvl 87 70 - 99 05/26/2016 [facility] ELECTROLYTES AGAP 16.5 10.0 - 20.0 05/24/2016 [facility] ELECTROLYTES Sodium Lvl 138 135 - 145 05/24/2016 [facility] ELECTROLYTES Potassium Lvl 3.5 3.5 - 5.1 05/24/2016 [facility] ELECTROLYTES Chloride Lvl 103 95 - 109 05/24/2016 [facility] ELECTROLYTES CO2 22 24 - 32 05/24/2016 [facility] ELECTROLYTES Calcium Lvl 8.8 8.5 - 10.5 05/24/2016 [facility] ELECTROLYTES Glucose Lvl 90 70 - 99 05/24/2016 [facility] ELECTROLYTES eGFR 25 05/24/2016 Result Comment: The [...] should be multiplied by the estimated BMI. [facility] ELECTROLYTES Creatinine Lvl 2.8 1 0.50 - 1.40 05/24/2016 [facility] ELECTROLYTES BUN 25 7 - 22 05/24/2016 [facility] HEMATOLOGY MPV 7.3 7.4 - 10.4 05/24/2016 [facility] HEMATOLOGY RDW 21.6 11.5 - 14.5 05/24/2016 [facility] HEMATOLOGY Platelet 635 133 - 450 05/24/2016 [facility] HEMATOLOGY MCH 26.1 27.0 - 31.0 05/24/2016 [facility] HEMATOLOGY MCHC 32.5 32.0 - 36.0 05/24/2016 [facility] HEMATOLOGY Hct 29.3 42.0 - 54.0 05/24/2016 [facility] HEMATOLOGY MCV 80.4 80.0 - 94.0 05/24/2016 [facility] HEMATOLOGY RBC 3.64 4.70 - 6.10 05/24/2016 [facility] HEMATOLOGY Hgb 9.5 14.0 - 18.0 05/24/2016 [facility] HEMATOLOGY WBC 10.0 3.7 - 10.4 05/24/2016 [facility] HEMATOLOGY Eosinophils 9.1 0.0 - 4.0 05/24/2016 [facility] HEMATOLOGY Monocytes 7.5 2.0 - 12.0 05/24/2016 [facility] HEMATOLOGY Lymphocytes 15.1 20.0 - 40.0 05/24/2016 [facility] HEMATOLOGY Segs 66.6 45.0 - 75.0 05/24/2016 [facility] HEMATOLOGY Basophils 1.7 0.0 - 1.0 05/24/2016 [facility] Segs-Bands # 6.7 1.5 - 8.1 05/24/2016 [facility] HEMATOLOGY Monocytes # 0.7 0.0 - 0.8 05/24/2016 [facility] HEMATOLOGY Eosinophils # 0.9 0.0 - 0.5 05/24/2016 [facility] HEMATOLOGY Lymphocytes # 1.5 1.0 - 5.5 05/24/2016 [facility] HEMATOLOGY Basophils # 0.2 0.0 - 0.2 05/24/2016 [facility] TOXICOLOGY Vanco Lvl 18.2 05/24/2016 [facility] TOXICOLOGY Vanco Lvl 18.8 05/23/2016 [facility] CHEM PANEL Procalcitonin Lvl 0.16 0.00 - 0.10 05/22/2016 [facility] HEMATOLOGY MPV 7.3 7.4 - 10.4 05/22/2016 [facility] HEMATOLOGY MCH 25.3 27.0 - 31.0 05/22/2016 [facility] HEMATOLOGY MCHC 31.2 32.0 - 36.0 05/22/2016 [facility] HEMATOLOGY Platelet 665 133 - 450 05/22/2016 [facility] HEMATOLOGY RDW 21.6 11.5 - 14.5 05/22/2016 [facility] HEMATOLOGY MCV 80.9 80.0 - 94.0 05/22/2016 [facility] HEMATOLOGY Hct 28.6 42.0 - 54.0 05/22/2016 [facility] HEMATOLOGY Hgb 8.9 14.0 - 18.0 05/22/2016 [facility] HEMATOLOGY RBC 3.54 4.70 - 6.10 05/22/2016 [facility] HEMATOLOGY WBC 8.9 3.7 - 10.4 05/22/2016 [facility] HEMATOLOGY Basophils # 0.2 0.0 - 0.2 05/22/2016 [facility] HEMATOLOGY Eosinophils # 0.9 0.0 - 0.5 05/22/2016 [facility] HEMATOLOGY Eosinophils 10.1 0.0 - 4.0 05/22/2016 [facility] HEMATOLOGY Segs-Bands # 5.4 1.5 - 8.1 05/22/2016 [facility] HEMATOLOGY Basophils 1.9 0.0 - 1.0 05/22/2016 [facility] HEMATOLOGY Monocytes # 0.9 0.0 - 0.8 05/22/2016 [facility] HEMATOLOGY Lymphocytes # 1.6 1.0 - 5.5 05/22/2016 [facility] HEMATOLOGY Monocytes 9.6 2.0 - 12.0 05/22/2016 [facility] HEMATOLOGY Lymphocytes 17.6 20.0 - 40.0 05/22/2016 [facility] HEMATOLOGY Segs 60.8 45.0 - 75.0 05/22/2016 [facility] HEMATOLOGY RBC Morph Twyla l (05/22/16 4:17 AM) 05/22/2016 [facility] HEMATOLOGY Plt Morph Twyla l (05/22/16 4:17 AM) 05/22/2016 [facility] IMMUNOLOGY C-REACTIVE PROTEIN 43.6 <=2.9 mg/L 05/22/2016 [facility] HEMATOLOGY MPV 7.3 7.4 - 10.4 05/21/2016 [facility] HEMATOLOGY RBC 4.06 4.70 - 6.10 05/21/2016 [facility] HEMATOLOGY Hgb 10.2 14.0 - 18.0 05/21/2016 [facility] HEMATOLOGY WBC 10.2 3.7 - 10.4 05/21/2016 [facility] HEMATOLOGY Platelet 721 133 - 450 05/21/2016 [facility] HEMATOLOGY RDW 22.3 11.5 - 14.5 05/21/2016 [facility] HEMATOLOGY MCHC 31.2 32.0 - 36.0 05/21/2016 [facility] HEMATOLOGY MCV 80.6 80.0 - 94.0 05/21/2016 [facility] HEMATOLOGY MCH 25.1 27.0 - 31.0 05/21/2016 [facility] HEMATOLOGY Hct 32.7 42.0 - 54.0 05/21/2016 [facility] HEMATOLOGY Basophils # 0.1 0.0 - 0.2 05/21/2016 [facility] HEMATOLOGY Segs-Bands # 7.7 1.5 - 8.1 05/21/2016 [facility] HEMATOLOGY Lymphocytes # 1.4 1.0 - 5.5 05/21/2016 [facility] HEMATOLOGY Monocytes # 0.6 0.0 - 0.8 05/21/2016 [facility] HEMATOLOGY Eosinophils # 0.5 0.0 - 0.5 05/21/2016 [facility] HEMATOLOGY Eosinophils 4.5 0.0 - 4.0 05/21/2016 [facility] HEMATOLOGY Basophils 1.2 0.0 - 1.0 05/21/2016 [facility] HEMATOLOGY Lymphocytes 13.3 20.0 - 40.0 05/21/2016 [facility] HEMATOLOGY Segs 74.9 45.0 - 75.0 05/21/2016 [facility] HEMATOLOGY Monocytes 6.1 2.0 - 12.0 05/21/2016 [facility] HEMATOLOGY RBC Morph Twyla l (05/20/16 5:43 AM) 05/20/2016 [facility] HEMATOLOGY Plt Morph Twyla l (05/20/16 5:43 AM) 05/20/2016 [facility] IMMUNOLOGY Prealbumin 22.1 18.0 - 45.0 05/20/2016 [facility] CHEM PANEL Lactic Acid Lvl 0.8 0.5 - 2.2 05/20/2016 [facility] DRUG SCREEN UDS Note See Note (05/19/16 1:33 PM) 05/19/2016 [facility] DRUG SCREEN U Amph Scr Nega tive *NA* (05/19/16 1:33 PM) Negative 05/19/2016 [facility] DRUG SCREEN U Cocaine Scr Nega tive *NA* (05/19/16 1:33 PM) Negative 05/19/2016 [facility] DRUG SCREEN U Cannab Scr Nega tive *NA* (05/19/16 1:33 PM) Negative 05/19/2016 [facility] DRUG SCREEN U Propoxyph Scr Nega tive *NA* (05/19/16 1:33 PM) Negative 05/19/2016 [facility] DRUG SCREEN U Phencyc Scr Nega tive *NA* (05/19/16 1:33 PM) Negative 05/19/2016 [facility] DRUG SCREEN U Methadone Scr Nega tive *NA* (05/19/16 1:33 PM) Negative 05/19/2016 [facility] DRUG SCREEN U Opiate Scr Nega tive *NA* (05/19/16 1:33 PM) Negative 05/19/2016 [facility] DRUG SCREEN U Mary Scr Nega tive *NA* (05/19/16 1:33 PM) Negative 05/19/2016 [facility] DRUG SCREEN U Benzodia Scr Nega tive *NA* (05/19/16 1:33 PM) Negative 05/19/2016 [facility] URINE AND STOOL UA Sq Epi None Seen 05/19/2016 [facility] URINE AND STOOL UA Urobilinogen <=1.0 mg/dL 0.1 - 1.0 05/19/2016 [facility] URINE AND STOOL UA Ketones Negative 05/19/2016 [facility] URINE AND STOOL UA RBC 7 0 - 2 05/19/2016 [facility] URINE AND STOOL UA Leuk Est Negative (05/19/16 1:33 PM) Negative 05/19/2016 [facility] URINE AND STOOL UA Nitrite Negative (05/19/16 1:33 PM) Negative 05/19/2016 [facility] URINE AND STOOL UA WBC 1 0 - 5 05/19/2016 [facility] URINE AND STOOL UA Turbidity Clear (05/19/16 1:33 PM) Clear 05/19/2016 [facility] URINE AND STOOL UA Color Light Yellow *NA* (05/19/16 1:33 PM) Yellow 05/19/2016 [facility] URINE AND STOOL UA Protein 100 mg/dL Negative mg/dL 05/19/2016 [facility] URINE AND STOOL UA Blood Moderate *ABN* (05/19/16 1:33 PM) Negative 05/19/2016 [facility] URINE AND STOOL UA Bili Negative *NA* (05/19/16 1:33 PM) Negative 05/19/2016 [facility] URINE AND STOOL UA Glucose Negative mg/dL Negative mg/dL 05/19/2016 [facility] URINE AND STOOL UA Spec Grav 1.009 <=1.030 05/19/2016 [facility] URINE AND STOOL UA pH 6.0 5.0 - 8.0 05/19/2016 [facility] CHEM PANEL Phosphorus 4.5 2.5 - 4.5 05/19/2016 [facility] CHEM PANEL Magnesium Lvl 2.2 1.8 - 2.4 05/19/2016 [facility] CARDIAC ENZYMES CK MB Index 2.5 0.0 - 2.5 05/19/2016 [facility] CARDIAC ENZYMES Troponin-I 0.04 0.00 - 0.40 05/19/2016 [facility] CARDIAC ENZYMES CK MB 1.4 0.5 - 3.6 05/19/2016 [facility] CARDIAC ENZYMES Total CK 57 12 - 191 05/19/2016 [facility] CARDIAC ENZYMES BNP 47 <=100 pg/mL 05/19/2016 [facility] CHEM PANEL B/C Ratio 11 6 - 25 05/19/2016 [facility] CHEM PANEL A/G Ratio 0.5 0.7 - 1.6 05/19/2016 [facility] CHEM PANEL Globulin 5.9 2.7 - 4.2 05/19/2016 [facility] CHEM PANEL Alk Phos 127 39 - 136 05/19/2016 [facility] CHEM PANEL Bili Total 0.2 0.2 - 1.3 05/19/2016 [facility] CHEM PANEL Albumin Lvl 3.0 3.5 - 5.0 05/19/2016 [facility] CHEM PANEL ALT 8 0 - 65 05/19/2016 [facility] CHEM PANEL AST 8 0 - 37 05/19/2016 [facility] CHEM PANEL Total Protein 8.9 6.4 - 8.4 05/19/2016 [facility] CHEM PANEL Lactic Acid Lvl 1.2 0.5 - 2.2 05/19/2016 [facility] CHEM PANEL Procalcitonin Lvl 0.21 0.00 - 0.10 05/19/2016 [facility] HEMATOLOGY PTT 32.2 22.9 - 35.8 05/19/2016 [facility] HEMATOLOGY PT 14.3 12.0 - 14.7 05/19/2016 [facility] HEMATOLOGY INR 1.09 0.85 - 1.17 05/19/2016 [facility] IMMUNOLOGY C-REACTIVE PROTEIN 110.0 <=2.9 mg/L 05/19/2016 [facility] CHEM PANEL Calcium Lvl 8.9 8.5 - 10.5 04/28/2016 [facility] CHEM PANEL Chloride Lvl 104 95 - 109 04/28/2016 [facility] CHEM PANEL Potassium Lvl 3.7 3.5 - 5.1 04/28/2016 [facility] CHEM PANEL Sodium Lvl 137 135 - 145 04/28/2016 [facility] CHEM PANEL Creatinine Lvl 3.15 0.50 - 1.40 04/28/2016 [facility] CHEM PANEL BUN 36 7 - 22 04/28/2016 [facility] CHEM PANEL Glucose Lvl 82 70 - 99 04/28/2016 [facility] CHEM PANEL AGAP 17.7 10.0 - 20.0 04/28/2016 [facility] CHEM PANEL CO2 19 24 - 32 04/28/2016 [facility] CHEM PANEL eGFR 22 04/28/2016 Result Comment: [...] should be multiplied by the estimated BMI. [facility] ELECTROLYTES AGAP 16.8 10.0 - 20.0 04/27/2016 [facility] ELECTROLYTES Calcium Lvl 9.1 8.5 - 10.5 04/27/2016 [facility] ELECTROLYTES CO2 22 24 - 32 04/27/2016 [facility] ELECTROLYTES Potassium Lvl 3.8 3.5 - 5.1 04/27/2016 [facility] ELECTROLYTES BUN 39 7 - 22 04/27/2016 [facility] ELECTROLYTES Sodium Lvl 140 135 - 145 04/27/2016 [facility] ELECTROLYTES Chloride Lvl 105 95 - 109 04/27/2016 [facility] ELECTROLYTES Glucose Lvl 90 70 - 99 04/27/2016 [facility] ELECTROLYTES Creatinine Lvl 3.0 7 0.50 - 1.40 04/27/2016 [facility] ELECTROLYTES eGFR 22 04/27/2016 Result Comment: The [...] should be multiplied by the estimated BMI. [facility] HEMATOLOGY Segs-Bands # 10.3 1.5 - 8.1 04/27/2016 [facility] HEMATOLOGY Basophils 0.6 0.0 - 1.0 04/27/2016 [facility] HEMATOLOGY Lymphocytes # 1.5 1.0 - 5.5 04/27/2016 [facility] HEMATOLOGY Basophils # 0.1 0.0 - 0.2 04/27/2016 [facility] HEMATOLOGY Eosinophils # 0.3 0.0 - 0.5 04/27/2016 [facility] HEMATOLOGY Microcyte 1+ *ABN* (04/27/16 4:10 AM) None Seen 04/27/2016 [facility] HEMATOLOGY Eosinophils 1.9 0.0 - 4.0 04/27/2016 [facility] HEMATOLOGY Monocytes 6.8 2.0 - 12.0 04/27/2016 [facility] HEMATOLOGY Monocytes # 0.9 0.0 - 0.8 04/27/2016 [facility] HEMATOLOGY Plt Morph Twyla l (04/27/16 4:10 AM) 04/27/2016 [facility] HEMATOLOGY Lymphocytes 11.6 20.0 - 40.0 04/27/2016 [facility] HEMATOLOGY Segs 79.1 45.0 - 75.0 04/27/2016 [facility] HEMATOLOGY WBC 13.1 3.7 - 10.4 04/27/2016 [facility] HEMATOLOGY Hct 26.4 42.0 - 54.0 04/27/2016 [facility] HEMATOLOGY MCV 77.1 80.0 - 94.0 04/27/2016 [facility] HEMATOLOGY RBC 3.42 4.70 - 6.10 04/27/2016 [facility] HEMATOLOGY Hgb 8.6 14.0 - 18.0 04/27/2016 [facility] HEMATOLOGY Platelet 840 133 - 450 04/27/2016 [facility] HEMATOLOGY MCH 25.1 27.0 - 31.0 04/27/2016 [facility] HEMATOLOGY RDW 18.5 11.5 - 14.5 04/27/2016 [facility] HEMATOLOGY MPV 6.0 7.4 - 10.4 04/27/2016 [facility] HEMATOLOGY MCHC 32.6 32.0 - 36.0 04/27/2016 [facility] DRUG SCREEN U Amph Scr Nega tive *NA* (04/26/16 5:34 PM) Negative 04/26/2016 [facility] DRUG SCREEN U Cannab Scr Nega tive *NA* (04/26/16 5:34 PM) Negative 04/26/2016 [facility] DRUG SCREEN U Mary Scr Nega tive *NA* (04/26/16 5:34 PM) Negative 04/26/2016 [facility] DRUG SCREEN U Cocaine Scr Nega tive *NA* (04/26/16 5:34 PM) Negative 04/26/2016 [facility] DRUG SCREEN U Benzodia Scr Posi tive *ABN* (04/26/16 5:34 PM) Negative 04/26/2016 [facility] DRUG SCREEN UDS Note See Note (04/26/16 5:34 PM) 04/26/2016 [facility] DRUG SCREEN U Phencyc Scr Nega tive *NA* (04/26/16 5:34 PM) Negative 04/26/2016 [facility] DRUG SCREEN U Opiate Scr Posi tive *ABN* (04/26/16 5:34 PM) Negative 04/26/2016 [facility] CARDIAC ENZYMES CK MB Index 1.4 0.0 - 2.5 04/26/2016 [facility] CARDIAC ENZYMES CK MB 2.1 0.5 - 3.6 04/26/2016 [facility] CARDIAC ENZYMES Troponin-I 0.02 0.00 - 0.40 04/26/2016 [facility] CARDIAC ENZYMES Total CK 148 12 - 191 04/26/2016 [facility] CHEM PANEL BUN 44 7 - 22 04/26/2016 [facility] CHEM PANEL Creatinine Lvl 3.32 0.50 - 1.40 04/26/2016 [facility] [employer] CHEM PANEL CO2 21 24 - 32 04/26/2016 [facility] CHEM PANEL Total Protein 9.2 6.4 - 8.4 04/26/2016 [facility] CHEM PANEL ALT 18 0 - 65 04/26/2016 [facility] CHEM PANEL Glucose Lvl 90 70 - 99 04/26/2016 [facility] CHEM PANEL eGFR 20 04/26/2016 Result Comment: [...] should be multiplied by the estimated BMI. [facility] CHEM PANEL AGAP 18.4 10.0 - 20.0 04/26/2016 [facility] CHEM PANEL B/C Ratio 13 6 - 25 04/26/2016 [facility] CHEM PANEL Globulin 6.1 2.7 - 4.2 04/26/2016 [facility] CHEM PANEL A/G Ratio 0.5 0.7 - 1.6 04/26/2016 [facility] CHEM PANEL AST 14 0 - 37 04/26/2016 [facility] CHEM PANEL Alk Phos 144 39 - 136 04/26/2016 [facility] CHEM PANEL Bili Total 0.2 0.2 - 1.3 04/26/2016 [facility] [employer] CHEM PANEL Potassium Lvl 4.4 3.5 - 5.1 04/26/2016 [facility] [employer] CHEM PANEL Sodium Lvl 137 135 - 145 04/26/2016 [facility] [employer] CHEM PANEL Chloride Lvl 102 95 - 109 04/26/2016 [facility] [employer] CHEM PANEL Albumin Lvl 3.1 3.5 - 5.0 04/26/2016 [facility] CHEM PANEL Calcium Lvl 9.3 8.5 - 10.5 04/26/2016 [facility] HEMATOLOGY Microcyte 1+ *ABN* (04/26/16 4:26 PM) None Seen 04/26/2016 [facility] HEMATOLOGY Segs 78.2 45.0 - 75.0 04/26/2016 [facility] HEMATOLOGY Basophils 0.7 0.0 - 1.0 04/26/2016 [facility] HEMATOLOGY Segs-Bands # 13.9 1.5 - 8.1 04/26/2016 [facility] HEMATOLOGY Monocytes 4.7 2.0 - 12.0 04/26/2016 [facility] HEMATOLOGY Lymphocytes 14.3 20.0 - 40.0 04/26/2016 [facility] HEMATOLOGY Lymphocytes # 2.5 1.0 - 5.5 04/26/2016 [facility] HEMATOLOGY Eosinophils 2.1 0.0 - 4.0 04/26/2016 [facility] HEMATOLOGY Monocytes # 0.8 0.0 - 0.8 04/26/2016 [facility] HEMATOLOGY Eosinophils # 0.4 0.0 - 0.5 04/26/2016 [facility] HEMATOLOGY Basophils # 0.1 0.0 - 0.2 04/26/2016 [facility] HEMATOLOGY PTT 34.5 22.9 - 35.8 04/26/2016 [facility] HEMATOLOGY Hgb 8.7 14.0 - 18.0 04/26/2016 [facility] HEMATOLOGY RBC 3.49 4.70 - 6.10 04/26/2016 [facility] HEMATOLOGY Hct 27.1 42.0 - 54.0 04/26/2016 [facility] HEMATOLOGY WBC 17.8 3.7 - 10.4 04/26/2016 [facility] HEMATOLOGY MCHC 32.2 32.0 - 36.0 04/26/2016 [facility] HEMATOLOGY MCH 25.0 27.0 - 31.0 04/26/2016 [facility] HEMATOLOGY MCV 77.7 80.0 - 94.0 04/26/2016 [facility] HEMATOLOGY MPV 6.2 7.4 - 10.4 04/26/2016 [facility] HEMATOLOGY Platelet 892 133 - 450 04/26/2016 [facility] HEMATOLOGY RDW 18.6 11.5 - 14.5 04/26/2016 [facility] HEMATOLOGY PT 14.2 12.0 - 14.7 04/26/2016 [facility] HEMATOLOGY INR 1.08 0.85 - 1.17 04/26/2016 [facility] HEMATOLOGY PTT 61.4 22.9 - 35.8 04/20/2016 [facility] URINE CHEM U Eos None Seen (04/20/16 6:15 AM) None Seen 04/20/2016 [facility] URINE CHEM U Creatinine 20.80 04/20/2016 [facility] URINE CHEM U Sodium 87 04/20/2016 [facility] ELECTROLYTES AGAP 14.8 10.0 - 20.0 04/20/2016 [facility] ELECTROLYTES Chloride Lvl 101 95 - 109 04/20/2016 [facility] ELECTROLYTES CO2 22 24 - 32 04/20/2016 [facility] ELECTROLYTES Calcium Lvl 8.5 8.5 - 10.5 04/20/2016 [facility] ELECTROLYTES Albumin Lvl 2.1 3.5 - 5.0 04/20/2016 [facility] ELECTROLYTES Potassium Lvl 3.8 3.5 - 5.1 04/20/2016 [facility] ELECTROLYTES BUN 29 7 - 22 04/20/2016 [facility] ELECTROLYTES Sodium Lvl 134 135 - 145 04/20/2016 [facility] ELECTROLYTES Glucose Lvl 93 70 - 99 04/20/2016 [facility] ELECTROLYTES Phosphorus 4.3 2.5 - 4.5 04/20/2016 [facility] ELECTROLYTES Creatinine Lvl 2.7 6 0.50 - 1.40 04/20/2016 [facility] ELECTROLYTES eGFR 25 04/20/2016 Result Comment: The [...] should be multiplied by the estimated BMI. [facility] HEMATOLOGY PTT 44.0 22.9 - 35.8 04/20/2016 [facility] HEMATOLOGY Basophils # 0.2 0.0 - 0.2 04/20/2016 [facility] HEMATOLOGY Monocytes # 0.8 0.0 - 0.8 04/20/2016 [facility] HEMATOLOGY Microcyte 1+ *ABN* (04/20/16 1:40 AM) None Seen 04/20/2016 [facility] HEMATOLOGY Eosinophils # 1.1 0.0 - 0.5 04/20/2016 [facility] HEMATOLOGY Lymphocytes # 2.0 1.0 - 5.5 04/20/2016 [facility] HEMATOLOGY Segs-Bands # 11.1 1.5 - 8.1 04/20/2016 [facility] HEMATOLOGY Basophils 1.0 0.0 - 1.0 04/20/2016 [facility] HEMATOLOGY Eosinophils 7.3 0.0 - 4.0 04/20/2016 [facility] HEMATOLOGY Monocytes 5.1 2.0 - 12.0 04/20/2016 [facility] HEMATOLOGY Lymphocytes 13.3 20.0 - 40.0 04/20/2016 [facility] HEMATOLOGY Segs 73.3 45.0 - 75.0 04/20/2016 [facility] HEMATOLOGY Plt Morph Clump ed (04/20/16 1:40 AM) 04/20/2016 [facility] HEMATOLOGY Platelet 705 133 - 450 04/20/2016 [facility] HEMATOLOGY MPV 6.5 7.4 - 10.4 04/20/2016 [facility] HEMATOLOGY RDW 17.2 11.5 - 14.5 04/20/2016 [facility] HEMATOLOGY MCHC 31.4 32.0 - 36.0 04/20/2016 [facility] HEMATOLOGY MCV 76.3 80.0 - 94.0 04/20/2016 [facility] HEMATOLOGY MCH 23.9 27.0 - 31.0 04/20/2016 [facility] HEMATOLOGY Hgb 8.3 14.0 - 18.0 04/20/2016 [facility] HEMATOLOGY Hct 26.5 42.0 - 54.0 04/20/2016 [facility] HEMATOLOGY WBC 15.2 3.7 - 10.4 04/20/2016 [facility] HEMATOLOGY RBC 3.47 4.70 - 6.10 04/20/2016 [facility] HEMATOLOGY PTT 57.7 22.9 - 35.8 04/20/2016 [facility] HEMATOLOGY PTT 1:1 Imm 40.5 04/19/2016 [facility] HEMATOLOGY PTT Baseline 48.9 22.9 - 35.8 04/19/2016 [facility] HEMATOLOGY TT Baseline 16.0 15.0 - 21.1 04/19/2016 [facility] CHEM PANEL Phosphorus 4.0 2.5 - 4.5 04/19/2016 [facility] CHEM PANEL eGFR 30 04/19/2016 Result Comment: [...] should be multiplied by the estimated BMI. [facility] CHEM PANEL Creatinine Lvl 2.37 0.50 - 1.40 04/19/2016 [facility] CHEM PANEL Albumin Lvl 2.0 3.5 - 5.0 04/19/2016 [facility] CHEM PANEL CO2 23 24 - 32 04/19/2016 [facility] CHEM PANEL Potassium Lvl 3.5 3.5 - 5.1 04/19/2016 [facility] CHEM PANEL Chloride Lvl 101 95 - 109 04/19/2016 [facility] CHEM PANEL BUN 28 7 - 22 04/19/2016 [facility] CHEM PANEL Sodium Lvl 136 135 - 145 04/19/2016 [facility] CHEM PANEL Glucose Lvl 97 70 - 99 04/19/2016 [facility] CHEM PANEL Calcium Lvl 8.8 8.5 - 10.5 04/19/2016 [facility] CHEM PANEL AGAP 15.5 10.0 - 20.0 04/19/2016 [facility] CHEM PANEL Phosphorus 4.0 2.5 - 4.5 04/19/2016 [facility] CHEM PANEL Magnesium Lvl 1.6 1.8 - 2.4 04/19/2016 [facility] HEMATOLOGY Eosinophils 7.6 0.0 - 4.0 04/19/2016 [facility] HEMATOLOGY Monocytes 5.7 2.0 - 12.0 04/19/2016 [facility] HEMATOLOGY Basophils 1.0 0.0 - 1.0 04/19/2016 [facility] HEMATOLOGY Segs 72.5 45.0 - 75.0 04/19/2016 [facility] Lymphocytes 13.2 20.0 - 40.0 04/19/2016 [facility] HEMATOLOGY Microcyte 1+ *ABN* (04/19/16 4:45 AM) None Seen 04/19/2016 [facility] HEMATOLOGY Basophils # 0.2 0.0 - 0.2 04/19/2016 [facility] HEMATOLOGY Monocytes # 0.9 0.0 - 0.8 04/19/2016 [facility] HEMATOLOGY Lymphocytes # 2.1 1.0 - 5.5 04/19/2016 [facility] HEMATOLOGY Eosinophils # 1.2 0.0 - 0.5 04/19/2016 [facility] Segs-Bands # 11.5 1.5 - 8.1 04/19/2016 [facility] HEMATOLOGY MPV 6.8 7.4 - 10.4 04/19/2016 [facility] HEMATOLOGY Platelet 642 133 - 450 04/19/2016 [facility] HEMATOLOGY MCHC 31.8 32.0 - 36.0 04/19/2016 [facility] HEMATOLOGY MCH 24.2 27.0 - 31.0 04/19/2016 [facility] RDW 16.7 11.5 - 14.5 04/19/2016 [facility] HEMATOLOGY Hct 23.8 42.0 - 54.0 04/19/2016 [facility] HEMATOLOGY Hgb 7.6 14.0 - 18.0 04/19/2016 [facility] HEMATOLOGY MCV 75.9 80.0 - 94.0 04/19/2016 [facility] HEMATOLOGY RBC 3.13 4.70 - 6.10 04/19/2016 [facility] HEMATOLOGY WBC 15.9 3.7 - 10.4 04/19/2016 [facility] CHEM PANEL eGFR 33 04/18/2016 Result Comment: [...] should be multiplied by the estimated BMI. [facility] CHEM PANEL Creatinine Lvl 2.22 0.50 - 1.40 04/18/2016 [facility] CHEM PANEL Calcium Lvl 8.5 8.5 - 10.5 04/18/2016 [facility] CHEM PANEL Chloride Lvl 100 95 - 109 04/18/2016 [facility] CHEM PANEL Potassium Lvl 3.9 3.5 - 5.1 04/18/2016 [facility] CHEM PANEL CO2 24 24 - 32 04/18/2016 [facility] CHEM PANEL Sodium Lvl 134 135 - 145 04/18/2016 [facility] CHEM PANEL BUN 27 7 - 22 04/18/2016 [facility] CHEM PANEL Glucose Lvl 96 70 - 99 04/18/2016 [facility] CHEM PANEL AGAP 13.9 10.0 - 20.0 04/18/2016 [facility] CHEM PANEL Magnesium Lvl 1.6 1.8 - 2.4 04/18/2016 [facility] HEMATOLOGY MCH 23.8 27.0 - 31.0 04/18/2016 [facility] HEMATOLOGY MCHC 31.0 32.0 - 36.0 04/18/2016 [facility] HEMATOLOGY RDW 16.8 11.5 - 14.5 04/18/2016 [facility] HEMATOLOGY Platelet 626 133 - 450 04/18/2016 [facility] HEMATOLOGY MCV 76.8 80.0 - 94.0 04/18/2016 [facility] HEMATOLOGY RBC 3.57 4.70 - 6.10 04/18/2016 [facility] HEMATOLOGY Hct 27.4 42.0 - 54.0 04/18/2016 [facility] HEMATOLOGY WBC 15.1 3.7 - 10.4 04/18/2016 [facility] HEMATOLOGY Hgb 8.5 14.0 - 18.0 04/18/2016 [facility] HEMATOLOGY MPV 6.6 7.4 - 10.4 04/18/2016 [facility] HEMATOLOGY PT 13.2 12.0 - 14.7 04/18/2016 [facility] HEMATOLOGY INR 0.98 0.85 - 1.17 04/18/2016 [facility] HEMATOLOGY Microcyte 1+ *ABN* (04/18/16 7:20 AM) None Seen 04/18/2016 [facility] HEMATOLOGY Basophils # 0.2 0.0 - 0.2 04/18/2016 [facility] HEMATOLOGY Monocytes # 0.8 0.0 - 0.8 04/18/2016 [facility] HEMATOLOGY Eosinophils # 1.0 0.0 - 0.5 04/18/2016 [facility] HEMATOLOGY Monocytes 5.1 2.0 - 12.0 04/18/2016 [facility] HEMATOLOGY Segs 73.9 45.0 - 75.0 04/18/2016 [facility] HEMATOLOGY Basophils 1.2 0.0 - 1.0 04/18/2016 [facility] HEMATOLOGY Segs-Bands # 11.2 1.5 - 8.1 04/18/2016 [facility] HEMATOLOGY Lymphocytes # 2.0 1.0 - 5.5 04/18/2016 [facility] HEMATOLOGY Lymphocytes 13.5 20.0 - 40.0 04/18/2016 [facility] HEMATOLOGY Eosinophils 6.3 0.0 - 4.0 04/18/2016 [facility] URINE CHEM U Eos 0-2 *ABN* (04/17/16 9:00 PM) None Seen 04/18/2016 [facility] URINE CHEM U Creatinine 22.90 04/18/2016 [facility] URINE CHEM U Sodium 112 04/18/2016 [facility] CARDIAC ENZYMES Total CK 39 12 - 191 04/17/2016 [facility] CARDIAC ENZYMES Troponin-I 0.09 0.00 - 0.40 04/17/2016 [facility] CARDIAC ENZYMES CK MB <0.5 0.5 - 3.6 04/17/2016 [facility] CHEM PANEL Magnesium Lvl 1.7 1.8 - 2.4 04/17/2016 [facility] CHEM PANEL Albumin Lvl 2.0 3.5 - 5.0 04/17/2016 [facility] HEMATOLOGY RBC Morph Twyla l (10/14/16 2:23 AM) 04/17/2016 [facility] HEMATOLOGY Plt Morph Twyla l (04/17/16 2:23 AM) 04/17/2016 [facility] BLOOD BANK RESULTS Antibody Scrn Negative (04/16/16 10:56 AM) 04/16/2016 [facility] BLOOD BANK RESULTS ABO/Rh A POS 04/16/2016 [facility] BLOOD BANK RESULTS FFP product Product available (04/16/16 9:54 AM) 04/16/2016 [facility] CARDIAC ENZYMES Troponin-I 0.09 0.00 - 0.40 04/16/2016 [facility] CARDIAC ENZYMES CK MB 0.7 0.5 - 3.6 04/16/2016 [facility] CARDIAC ENZYMES Total CK 39 12 - 191 04/16/2016 [facility] URINE AND STOOL UA Blood Moderate *ABN* (04/16/16 9:11 AM) Negative 04/16/2016 [facility] URINE AND STOOL UA Glucose Negative mg/dL Negative mg/dL 04/16/2016 [facility] URINE AND STOOL UA pH 5.0 5.0 - 8.0 04/16/2016 [facility] URINE AND STOOL UA Protein 100 mg/dL Negative mg/dL 04/16/2016 [facility] URINE AND STOOL UA Bili Negative *NA* (04/16/16 9:11 AM) Negative 04/16/2016 [facility] URINE AND STOOL UA Spec Grav 1.012 <=1.030 04/16/2016 [facility] URINE AND STOOL UA Turbidity Clear (04/16/16 9:11 AM) Clear 04/16/2016 [facility] URINE AND STOOL UA Urobilinogen <=1.0 mg/dL 0.1 - 1.0 04/16/2016 [facility] URINE AND STOOL UA Nitrite Negative (04/16/16 9:11 AM) Negative 04/16/2016 [facility] URINE AND STOOL UA Leuk Est Negative (04/16/16 9:11 AM) Negative 04/16/2016 [facility] URINE AND STOOL UA Sq Epi Few /LPF Few /LPF 04/16/2016 [facility] URINE AND STOOL UA WBC 5 0 - 5 04/16/2016 [facility] URINE AND STOOL UA Ketones Negative 04/16/2016 [facility] URINE AND STOOL UA Color Straw 04/16/2016 [facility] URINE AND STOOL UA Hyal Cast 1 0 - 2 04/16/2016 [facility] URINE AND STOOL UA Mucus Few /LPF None Seen /LPF 04/16/2016 [facility] URINE AND STOOL UA RBC 14 0 - 2 04/16/2016 [facility] DRUG SCREEN U Methadone Scr Nega tive *NA* (04/16/16 6:27 AM) Negative 04/16/2016 [facility] DRUG SCREEN U Propoxyph Scr Nega tive *NA* (04/16/16 6:27 AM) Negative 04/16/2016 [facility] DRUG SCREEN U Phencyc Scr Nega tive *NA* (04/16/16 6:27 AM) Negative 04/16/2016 [facility] DRUG SCREEN U Amph Scr Nega tive *NA* (04/16/16 6:27 AM) Negative 04/16/2016 [facility] DRUG SCREEN UDS Note See Note (04/16/16 6:27 AM) 04/16/2016 [facility] DRUG SCREEN U Cannab Scr Nega tive *NA* (04/16/16 6:27 AM) Negative 04/16/2016 [facility] DRUG SCREEN U Benzodia Scr Nega tive *NA* (04/16/16 6:27 AM) Negative 04/16/2016 [facility] DRUG SCREEN U Cocaine Scr Nega tive *NA* (04/16/16 6:27 AM) Negative 04/16/2016 [facility] DRUG SCREEN U Opiate Scr Posi tive *ABN* (04/16/16 6:27 AM) Negative 04/16/2016 [facility] DRUG SCREEN U Mary Scr Nega tive *NA* (04/16/16 6:27 AM) Negative 04/16/2016 [facility] CHEM PANEL Lactic Acid Lvl 1.1 0.5 - 2.2 04/16/2016 [facility] CHEM PANEL ALT 22 0 - 65 04/16/2016 [facility] CHEM PANEL AST 11 0 - 37 04/16/2016 [facility] CHEM PANEL Bili Direct 0.1 0.0 - 0.3 04/16/2016 [facility] CHEM PANEL Alk Phos 109 39 - 136 04/16/2016 [facility] CHEM PANEL Total Protein 7.0 6.4 - 8.4 04/16/2016 [facility] CHEM PANEL Bili Total 0.6 0.2 - 1.3 04/16/2016 [facility] CHEM PANEL Bili Indirect 0.5 0.0 - 1.0 04/16/2016 [facility] CHEM PANEL A/G Ratio 0.5 0.7 - 1.6 04/16/2016 [facility] CHEM PANEL Globulin 4.6 2.7 - 4.2 04/16/2016 [facility] CHEM PANEL Procalcitonin Lvl 0.21 0.00 - 0.10 04/16/2016 [facility] HEMATOLOGY PT 14.4 12.0 - 14.7 04/16/2016 [facility] HEMATOLOGY INR 1.10 0.85 - 1.17 04/16/2016 [facility] CHEM PANEL Lipase Lvl 65 73 - 393 03/12/2016 [facility] CHEM PANEL Magnesium Lvl 2.0 1.8 - 2.4 03/12/2016 [facility] CHEM PANEL Amylase Lvl 35 25 - 115 03/12/2016 [facility] CHEM PANEL Globulin 6.2 2.7 - 4.2 03/12/2016 [facility] CHEM PANEL A/G Ratio 0.3 0.7 - 1.6 03/12/2016 [facility] CHEM PANEL AGAP 13.7 10.0 - 20.0 03/12/2016 [facility] CHEM PANEL B/C Ratio 17 6 - 25 03/12/2016 [facility] CHEM PANEL Bili Total 0.3 0.2 - 1.3 03/12/2016 [facility] CHEM PANEL Alk Phos 216 39 - 136 03/12/2016 [facility] CHEM PANEL Total Protein 8.3 6.4 - 8.4 03/12/2016 [facility] CHEM PANEL Albumin Lvl 2.1 3.5 - 5.0 03/12/2016 [facility] CHEM PANEL Calcium Lvl 8.7 8.5 - 10.5 03/12/2016 [facility] CHEM PANEL Potassium Lvl 3.7 3.5 - 5.1 03/12/2016 [facility] CHEM PANEL Chloride Lvl 100 95 - 109 03/12/2016 [facility] CHEM PANEL Sodium Lvl 134 135 - 145 03/12/2016 [facility] CHEM PANEL eGFR 109 03/12/2016 Result Comment: [...] should be multiplied by the estimated BMI. [facility] CHEM PANEL BUN 12 7 - 22 03/12/2016 [facility] CHEM PANEL Creatinine Lvl 0.70 0.50 - 1.40 03/12/2016 [facility] CHEM PANEL CO2 24 24 - 32 03/12/2016 [facility] CHEM PANEL AST 16 0 - 37 03/12/2016 [facility] CHEM PANEL ALT 26 0 - 65 03/12/2016 [facility] CHEM PANEL Glucose Lvl 103 70 - 99 03/12/2016 [facility] HEMATOLOGY MCHC 33.4 32.0 - 36.0 03/12/2016 [facility] HEMATOLOGY Hgb 10.2 14.0 - 18.0 03/12/2016 [facility] HEMATOLOGY RDW 14.9 11.5 - 14.5 03/12/2016 [facility] HEMATOLOGY MPV 7.0 7.4 - 10.4 03/12/2016 [facility] HEMATOLOGY Platelet 1008 133 - 450 03/12/2016 Result Comment: Critical Result(s) hazel d to SHI BEY at 03/12/2016 17:18 by LUZ ELENA. Read back OK. [facility] HEMATOLOGY WBC 19.8 3.7 - 10.4 03/12/2016 [facility] HEMATOLOGY RBC 3.76 4.70 - 6.10 03/12/2016 [facility] HEMATOLOGY MCV 81.2 80.0 - 94.0 03/12/2016 [facility] HEMATOLOGY Hct 30.5 42.0 - 54.0 03/12/2016 [facility] HEMATOLOGY MCH 27.1 27.0 - 31.0 03/12/2016 [facility] HEMATOLOGY Eosinophils # 0.2 0.0 - 0.5 03/12/2016 [facility] HEMATOLOGY Basophils # 0.1 0.0 - 0.2 03/12/2016 [facility] HEMATOLOGY Monocytes # 0.8 0.0 - 0.8 03/12/2016 [facility] HEMATOLOGY Segs-Bands # 17.0 1.5 - 8.1 03/12/2016 [facility] HEMATOLOGY Lymphocytes # 1.7 1.0 - 5.5 03/12/2016 [facility] HEMATOLOGY Basophils 0.4 0.0 - 1.0 03/12/2016 [facility] [facility] H[facility] Eosinophils 1.2 0.0 - 4.0 03/12/2016 [facility] HEMATOLOGY Monocytes 4.1 2.0 - 12.0 03/12/2016 [facility] HEMATOLOGY Segs 85.9 45.0 - 75.0 03/12/2016 [facility] HEMATOLOGY Lymphocytes 8.4 20.0 - 40.0 03/12/2016 [facility] HEMATOLOGY Plt Morph Twyla l (03/12/16 4:46 PM) 03/12/2016 [facility] HEMATOLOGY RBC Morph Twyla l (03/12/16 4:46 PM) 03/12/2016 [facility] ELECTROLYTES AGAP 13.3 10.0 - 20.0 03/07/2016 [facility] ELECTROLYTES Glucose Lvl 110 70 - 99 03/07/2016 [facility] ELECTROLYTES Calcium Lvl 8.6 8.5 - 10.5 03/07/2016 [facility] ELECTROLYTES CO2 26 24 - 32 03/07/2016 [facility] ELECTROLYTES Chloride Lvl 99 95 - 109 03/07/2016 [facility] ELECTROLYTES Sodium Lvl 134 135 - 145 03/07/2016 [facility] ELECTROLYTES BUN 13 7 - 22 03/07/2016 [facility] ELECTROLYTES Potassium Lvl 4.3 3.5 - 5.1 03/07/2016 [facility] ELECTROLYTES Creatinine Lvl 0.7 4 0.50 - 1.40 03/07/2016 [facility] ELECTROLYTES eGFR 106 03/07/2016 Result Comment: The [...] should be multiplied by the estimated BMI. [facility] HEMATOLOGY Platelet 959 133 - 450 03/07/2016 [facility] HEMATOLOGY RDW 14.6 11.5 - 14.5 03/07/2016 [facility] Hct 31.7 42.0 - 54.0 03/07/2016 [facility] HEMATOLOGY Hgb 10.6 14.0 - 18.0 03/07/2016 [facility] HEMATOLOGY MPV 7.0 7.4 - 10.4 03/07/2016 [facility] MCH 27.3 27.0 - 31.0 03/07/2016 [facility] HEMATOLOGY MCV 81.6 80.0 - 94.0 03/07/2016 [facility] MCHC 33.5 32.0 - 36.0 03/07/2016 [facility] RBC 3.89 4.70 - 6.10 03/07/2016 [facility] HEMATOLOGY WBC 22.2 3.7 - 10.4 03/07/2016 [facility] RBC Morph Twyla l (03/07/16 4:54 AM) 03/07/2016 [facility] Plt Morph Twyla l (03/07/16 4:54 AM) 03/07/2016 [facility] Segs-Bands # 18.6 1.5 - 8.1 03/07/2016 [facility] HEMATOLOGY Basophils 0.1 0.0 - 1.0 03/07/2016 [facility] HEMATOLOGY Segs 84.1 45.0 - 75.0 03/07/2016 [facility] HEMATOLOGY Lymphocytes # 2.0 1.0 - 5.5 03/07/2016 [facility] HEMATOLOGY Eosinophils # 0.8 0.0 - 0.5 03/07/2016 [facility] HEMATOLOGY Monocytes # 0.7 0.0 - 0.8 03/07/2016 [facility] HEMATOLOGY Lymphocytes 8.9 20.0 - 40.0 03/07/2016 [facility] HEMATOLOGY Eosinophils 3.6 0.0 - 4.0 03/07/2016 [facility] HEMATOLOGY Monocytes 3.3 2.0 - 12.0 03/07/2016 [facility] HEMATOLOGY Basophils # 0.0 0.0 - 0.2 03/07/2016 [facility] CHEM PANEL eGFR 108 03/06/2016 Result Comment: [...] should be multiplied by the estimated BMI. [facility] CHEM PANEL Creatinine Lvl 0.70 0.50 - 1.40 03/06/2016 [facility] CHEM PANEL BUN 13 7 - 22 03/06/2016 [facility] CHEM PANEL Calcium Lvl 8.5 8.5 - 10.5 03/06/2016 [facility] CHEM PANEL CO2 26 24 - 32 03/06/2016 [facility] CHEM PANEL Potassium Lvl 4.6 3.5 - 5.1 03/06/2016 [facility] CHEM PANEL Chloride Lvl 99 95 - 109 03/06/2016 [facility] CHEM PANEL Glucose Lvl 89 70 - 99 03/06/2016 [facility] CHEM PANEL Sodium Lvl 136 135 - 145 03/06/2016 [facility] CHEM PANEL AGAP 15.6 10.0 - 20.0 03/06/2016 [facility] HEMATOLOGY Hct 32.6 42.0 - 54.0 03/06/2016 [facility] HEMATOLOGY MCH 27.0 27.0 - 31.0 03/06/2016 [facility] HEMATOLOGY MCV 81.4 80.0 - 94.0 03/06/2016 [facility] HEMATOLOGY Hgb 10.8 14.0 - 18.0 03/06/2016 [facility] HEMATOLOGY Platelet 736 133 - 450 03/06/2016 [facility] HEMATOLOGY MPV 7.0 7.4 - 10.4 03/06/2016 [facility] HEMATOLOGY MCHC 33.2 32.0 - 36.0 03/06/2016 [facility] HEMATOLOGY RDW 14.4 11.5 - 14.5 03/06/2016 [facility] HEMATOLOGY WBC 20.8 3.7 - 10.4 03/06/2016 [facility] HEMATOLOGY RBC 4.01 4.70 - 6.10 03/06/2016 [facility] HEMATOLOGY Basophils # 0.1 0.0 - 0.2 03/06/2016 [facility] HEMATOLOGY Segs 82.1 45.0 - 75.0 03/06/2016 [facility] HEMATOLOGY RBC Morph Twyla l (03/06/16 8:40 AM) 03/06/2016 [facility] HEMATOLOGY Lymphocytes 9.0 20.0 - 40.0 03/06/2016 [facility] HEMATOLOGY Plt Morph Twyla l (03/06/16 8:40 AM) 03/06/2016 [facility] HEMATOLOGY Eosinophils # 0.8 0.0 - 0.5 03/06/2016 [facility] HEMATOLOGY Monocytes # 1.0 0.0 - 0.8 03/06/2016 [facility] HEMATOLOGY Lymphocytes # 1.9 1.0 - 5.5 03/06/2016 [facility] HEMATOLOGY Segs-Bands # 17.1 1.5 - 8.1 03/06/2016 [facility] HEMATOLOGY Basophils 0.3 0.0 - 1.0 03/06/2016 [facility] HEMATOLOGY Monocytes 4.8 2.0 - 12.0 03/06/2016 [facility] HEMATOLOGY Eosinophils 3.8 0.0 - 4.0 03/06/2016 [facility] ELECTROLYTES AGAP 11.7 10.0 - 20.0 03/05/2016 [facility] ELECTROLYTES eGFR 105 03/05/2016 Result Comment: The [...] should be multiplied by the estimated BMI. [facility] ELECTROLYTES Glucose Lvl 95 70 - 99 03/05/2016 [facility] ELECTROLYTES BUN 14 7 - 22 03/05/2016 [facility] ELECTROLYTES Creatinine Lvl 0.7 6 0.50 - 1.40 03/05/2016 [facility] ELECTROLYTES CO2 27 24 - 32 03/05/2016 [facility] ELECTROLYTES Sodium Lvl 137 135 - 145 03/05/2016 [facility] ELECTROLYTES Calcium Lvl 8.4 8.5 - 10.5 03/05/2016 [facility] ELECTROLYTES Chloride Lvl 103 95 - 109 03/05/2016 [facility] ELECTROLYTES Potassium Lvl 4.7 3.5 - 5.1 03/05/2016 [facility] HEMATOLOGY Lymphocytes # 2.3 1.0 - 5.5 03/05/2016 [facility] HEMATOLOGY Segs-Bands # 15.2 1.5 - 8.1 03/05/2016 [facility] HEMATOLOGY Basophils 0.2 0.0 - 1.0 03/05/2016 [facility] HEMATOLOGY Eosinophils # 1.0 0.0 - 0.5 03/05/2016 [facility] HEMATOLOGY Monocytes # 1.3 0.0 - 0.8 03/05/2016 [facility] HEMATOLOGY Segs 76.6 45.0 - 75.0 03/05/2016 [facility] HEMATOLOGY Plt Morph Twyla l (03/05/16 6:21 AM) 03/05/2016 [facility] HEMATOLOGY RBC Morph Twyla l (03/05/16 6:21 AM) 03/05/2016 [facility] HEMATOLOGY Lymphocytes 11.3 20.0 - 40.0 03/05/2016 [facility] HEMATOLOGY Eosinophils 5.2 0.0 - 4.0 03/05/2016 [facility] HEMATOLOGY Monocytes 6.7 2.0 - 12.0 03/05/2016 [facility] HEMATOLOGY RDW 14.4 11.5 - 14.5 03/05/2016 [facility] HEMATOLOGY Platelet 888 133 - 450 03/05/2016 [facility] HEMATOLOGY MPV 7.2 7.4 - 10.4 03/05/2016 [facility] HEMATOLOGY Hgb 10.4 14.0 - 18.0 03/05/2016 [facility] HEMATOLOGY Hct 31.6 42.0 - 54.0 03/05/2016 [facility] HEMATOLOGY MCV 82.4 80.0 - 94.0 03/05/2016 [facility] HEMATOLOGY MCH 27.2 27.0 - 31.0 03/05/2016 [facility] HEMATOLOGY MCHC 33.0 32.0 - 36.0 03/05/2016 [facility] HEMATOLOGY WBC 19.9 3.7 - 10.4 03/05/2016 [facility] HEMATOLOGY RBC 3.83 4.70 - 6.10 03/05/2016 [facility] HEMATOLOGY Retic Auto 1.9 0.5 - 1.5 03/04/2016 [facility] HEMATOLOGY Large Plt Moder ate *ABN* (03/04/16 5:08 AM) None Seen 03/04/2016 [facility] HEMATOLOGY Basophils # 0.1 0.0 - 0.2 03/04/2016 [facility] CHEM PANEL Phosphorus 3.9 2.5 - 4.5 03/03/2016 [facility] CHEM PANEL Magnesium Lvl 2.1 1.8 - 2.4 03/03/2016 [facility] HEMATOLOGY Sed Rate >100 0 - 15 03/03/2016 [facility] IMMUNOLOGY C-REACTIVE PROTEIN 164.0 <=2.9 mg/L 03/03/2016 [facility] CHEM PANEL Albumin Lvl 1.6 3.5 - 5.0 03/02/2016 [facility] CHEM PANEL ALT 55 0 - 65 03/02/2016 [facility] CHEM PANEL AST 25 0 - 37 03/02/2016 [facility] CHEM PANEL Bili Total 0.5 0.2 - 1.3 03/02/2016 [facility] CHEM PANEL Total Protein 7.3 6.4 - 8.4 03/02/2016 [facility] CHEM PANEL Alk Phos 237 39 - 136 03/02/2016 [facility] CHEM PANEL B/C Ratio 16 6 - 25 03/02/2016 [facility] CHEM PANEL Globulin 5.7 2.7 - 4.2 03/02/2016 [facility] CHEM PANEL A/G Ratio 0.3 0.7 - 1.6 03/02/2016 [facility] HEMATOLOGY PB Smear Path RBC's : Normochromic [...] studies are recommended. Vidal Putnam [place] CPT [id number] 03/02/2016 [facility] CHEM PANEL Bili Total 0.5 0.2 - 1.3 03/01/2016 [facility] CHEM PANEL Alk Phos 241 39 - 136 03/01/2016 [facility] CHEM PANEL A/G Ratio 0.3 0.7 - 1.6 03/01/2016 [facility] CHEM PANEL Globulin 5.4 2.7 - 4.2 03/01/2016 [facility] CHEM PANEL Total Protein 7.2 6.4 - 8.4 03/01/2016 [facility] CHEM PANEL AST 38 0 - 37 03/01/2016 [facility] CHEM PANEL B/C Ratio 18 6 - 25 03/01/2016 [facility] CHEM PANEL Albumin Lvl 1.8 3.5 - 5.0 03/01/2016 [facility] CHEM PANEL ALT 87 0 - 65 03/01/2016 [facility] CHEM PANEL A/G Ratio 0.3 0.7 - 1.6 02/29/2016 [facility] CHEM PANEL Bili Indirect 0.2 0.0 - 1.0 02/29/2016 [facility] CHEM PANEL Globulin 5.2 2.7 - 4.2 02/29/2016 [facility] CHEM PANEL Albumin Lvl 1.7 3.5 - 5.0 02/29/2016 [facility] CHEM PANEL Bili Direct 0.1 0.0 - 0.3 02/29/2016 [facility] CHEM PANEL Total Protein 6.9 6.4 - 8.4 02/29/2016 [facility] CHEM PANEL Alk Phos 226 39 - 136 02/29/2016 [facility] CHEM PANEL Bili Total 0.3 0.2 - 1.3 02/29/2016 [facility] CHEM PANEL AST 57 0 - 37 02/29/2016 [facility] CHEM PANEL ALT 87 0 - 65 02/29/2016 [facility] CHEM PANEL GGT 194 5 - 85 02/29/2016 [facility] MOLECULAR DIAGNOSTIC C difficile DNA Negative (02/28/16 4:07 PM) Negative 02/28/2016 [facility] URINE AND STOOL Fecal Leukocyte None Seen (02/28/16 4:07 PM) 02/28/2016 [facility] CHEM PANEL B/C Ratio 10 6 - 25 02/28/2016 [facility] HEMATOLOGY Sed Rate >100 0 - 15 02/28/2016 [facility] IMMUNOLOGY Prealbumin 10.4 18.0 - 45.0 02/28/2016 [facility] IMMUNOLOGY C-REACTIVE PROTEIN 150.0 <=2.9 mg/L 02/28/2016 [facility] CHEM PANEL Magnesium Lvl 2.1 1.8 - 2.4 02/27/2016 [facility] HEMATOLOGY Sed Rate >100 0 - 15 02/27/2016 [facility] IMMUNOLOGY Prealbumin 9.9 18.0 - 45.0 02/27/2016 [facility] IMMUNOLOGY HIV 1/2 Ab Negat dimas *NA* (02/27/16 4:25 AM) Negative 02/27/2016 [facility] C-REACTIVE PROTEIN 172.0 <=2.9 mg/L 02/27/2016 [facility] LIPIDS LDL (Calculated) 63 <=99 mg/dL 02/26/2016 [facility] LIPIDS VLDL 18 02/26/2016 [facility] LIPIDS HDL 24 >=61 mg/dL 02/26/2016 [facility] LIPIDS CHD Risk 4.38 4.00 - 7.30 02/26/2016 [facility] LIPIDS Trig 88 <=149 mg/dL 02/26/2016 [facility] LIPIDS Chol 105 <=199 mg/dL 02/26/2016 [facility] TOXICOLOGY Vanco Tr TND 1300 02/26/2016 [facility] TOXICOLOGY Vanco Tr 3.8 02/26/2016 [facility] CHEM PANEL Magnesium Lvl 1.8 1.8 - 2.4 02/26/2016 [facility] CHEM PANEL Phosphorus 3.6 2.5 - 4.5 02/26/2016 [facility] VIRAL - SEROLOGY W Nile Ab IgM [...] by other flavivirus infections
(e.g. Dengue virus, [place] encephalitis virus)
may show cross-reactivity with WNV.
Test Performed at:
[facility]
[address] [place] [address]
[place] [address] Coleen Munoz MD [facility] DRUG SCREEN UDS Note See Note *NA* (02/25/16 1:10 PM) 02/25/2016 [facility] DRUG SCREEN U Cannab Scr Nega tive *NA* (02/25/16 1:10 PM) Negative 02/25/2016 [facility] DRUG SCREEN U Opiate Scr Nega tive *NA* (02/25/16 1:10 PM) Negative 02/25/2016 [facility] DRUG SCREEN U Benzodia Scr Nega tive *NA* (02/25/16 1:10 PM) Negative 02/25/2016 [facility] DRUG SCREEN U Mary Scr Nega tive *NA* (02/25/16 1:10 PM) Negative 02/25/2016 [facility] DRUG SCREEN U Cocaine Scr Nega tive *NA* (02/25/16 1:10 PM) Negative 02/25/2016 [facility] DRUG SCREEN U Phencyc Scr Nega tive *NA* (02/25/16 1:10 PM) Negative 02/25/2016 [facility] DRUG SCREEN U Amph Scr Nega tive *NA* (02/25/16 1:10 PM) Negative 02/25/2016 [facility] CARDIAC ENZYMES Troponin-I 0.26 0.00 - 0.40 02/25/2016 [facility] CARDIAC ENZYMES CK MB <0.5 0.5 - 3.6 02/25/2016 [facility] CARDIAC ENZYMES Total CK 25 12 - 191 02/25/2016 [facility] CARDIAC ENZYMES Troponin-I 0.31 0.00 - 0.40 02/25/2016 [facility] CARDIAC ENZYMES CK MB <0.5 0.5 - 3.6 02/25/2016 [facility] CARDIAC ENZYMES Total CK 26 12 - 191 02/25/2016 [facility] CHEM PANEL Lactic Acid Lvl 1.0 0.5 - 2.2 02/25/2016 [facility] BACTERIAL - SEROLOGY Strep pneumonia e Ag Negative (02/25/16 12:20 AM) Negative 02/25/2016 [facility] BACTERIAL - SEROLOGY Source Strep Cerebral Spinal Fluid 02/25/2016 [facility] BODY FLUIDS Tube Num CSF 1 02/25/2016 [facility] BODY [email or web address] RBC CSF 67 0 - 03 02/25/2016 [facility] BODY FLUIDS WBC CSF 9 0 - 53 02/25/2016 [facility] [place] Collette r (02/25/16 12:20 AM) Clear 02/25/2016 [facility] Monocyte CSF 6 15 - 45 02/25/2016 [facility] Lymph CSF 58 40 - 80 02/25/2016 [facility] Supernat CSF Co[place] rless (02/25/16 12:20 AM) Colorless 02/25/2016 [facility] Color CSF Co[place]ans rless (02/25/16 12:20 AM) Colorless 02/25/2016 [facility] Segs CSF 36 0 - 6 02/25/2016 [facility] Protein CSF 45 15 - 45 02/25/2016 [facility] Glucose CSF 50 45 - 80 02/25/2016 [facility] BODY FLUIDS RBC CSF 3 0 - 03 02/25/2016 [facility] BODY FLUIDS WBC CSF 1 0 - 53 02/25/2016 [facility] Supernat CSF Coeymans rless (02/25/16 12:20 AM) Colorless 02/25/2016 [facility] BODY [facility] [[email or web address]] Clarity CSF Collette r (02/25/16 12:20 AM) Clear 02/25/2016 [facility] BODY FLUIDS Color CSF Coeymans rless (02/25/16 12:20 AM) Colorless 02/25/2016 [facility] BODY FLUIDS Tube Num CSF 4 02/25/2016 [facility] FUNGAL - SEROLOGY Crypto Ag CSF Negative (02/25/16 12:20 AM) Negative 02/25/2016 [facility] IMMUNOLOGY VDRL Scr CSF Non R eactive (02/25/16 12:20 AM) Non Reactive 02/25/2016 [facility] MOLECULAR DIAGNOSTIC HSV 1 by PCR Not Performed 1 (02/25/16 12:20 AM) Negative 02/25/2016 Result Comment: CSF contains less than 5 WBC'S and has a normal Protein level. [facility] MOLECULAR DIAGNOSTIC HSV 2 by PCR Not Performed 2 (02/25/16 12:20 AM) Negative 02/25/2016 Result Comment: CSF contains less than 5 WBC'S and has a normal Protein level. [facility] MOLECULAR DIAGNOSTIC Source HSV Cerebral Spinal Fluid 02/25/2016 [facility] VIRAL - SEROLOGY Enterovirus PCR CSF Negative (02/25/16 12:20 AM) Negative 02/25/2016 [facility] URINE AND STOOL UA Bacteria Occasional /HPF None Seen /HPF 02/25/2016 [facility] URINE AND STOOL UA Mucus Few /LPF None Seen /LPF 02/25/2016 [facility] URINE AND STOOL UA Sq Epi None Seen 02/25/2016 [facility] URINE AND STOOL UA Ketones Negative 02/25/2016 [facility] URINE AND STOOL UA Urobilinogen <=1.0 mg/dL 0.1 - 1.0 02/25/2016 [facility] URINE AND STOOL UA Leuk Est Trace *ABN* (02/24/16 8:41 PM) Negative 02/25/2016 [facility] URINE AND STOOL UA WBC 8 0 - 5 02/25/2016 [facility] URINE AND STOOL UA RBC 9 0 - 2 02/25/2016 [facility] URINE AND STOOL UA Glucose Negative mg/dL Negative mg/dL 02/25/2016 [facility] URINE AND STOOL UA Bili Negative *NA* (02/24/16 8:41 PM) Negative 02/25/2016 [facility] URINE AND STOOL UA Protein 30 mg/dL Negative mg/dL 02/25/2016 [facility] URINE AND STOOL UA Nitrite Negative (02/24/16 8:41 PM) Negative 02/25/2016 [facility] URINE AND STOOL UA Blood Small *ABN* (02/24/16 8:41 PM) Negative 02/25/2016 [facility] URINE AND STOOL UA Turbidity Slight *ABN* (02/24/16 8:41 PM) Clear 02/25/2016 [facility] URINE AND STOOL UA Color Yellow *NA* (02/24/16 8:41 PM) Yellow 02/25/2016 [facility] URINE AND STOOL UA Spec Grav 1.016 <=1.030 02/25/2016 [facility] URINE AND STOOL UA pH 6.0 5.0 - 8.0 02/25/2016 [facility] CARDIAC ENZYMES Total CK 25 12 - 191 02/25/2016 [facility] CARDIAC ENZYMES Troponin-I 0.33 0.00 - 0.40 02/25/2016 [facility] TOXICOLOGY Ethanol Lvl <3 02/25/2016 [facility] TOXICOLOGY Etoh (%) <0.003 02/25/2016 [facility] CHEM PANEL eGFR 146 02/20/2016 Result Comment: [...] should be multiplied by the estimated BMI. [facility] CHEM PANEL Calcium Lvl 8.3 8.5 - 10.5 02/20/2016 [facility] CHEM PANEL Potassium Lvl 3.6 3.5 - 5.1 02/20/2016 [facility] CHEM PANEL CO2 27 24 - 32 02/20/2016 [facility] CHEM PANEL Sodium Lvl 134 135 - 145 02/20/2016 [facility] CHEM PANEL Chloride Lvl 100 95 - 109 02/20/2016 [facility] CHEM PANEL Creatinine Lvl 0.48 0.50 - 1.40 02/20/2016 [facility] CHEM PANEL BUN 7 7 - 22 02/20/2016 [facility] CHEM PANEL Glucose Lvl 98 70 - 99 02/20/2016 [facility] CHEM PANEL AGAP 10.6 10.0 - 20.0 02/20/2016 [facility] CHEM PANEL Magnesium Lvl 1.9 1.8 - 2.4 02/20/2016 [facility] HEMATOLOGY Lymphocytes 10.1 20.0 - 40.0 02/20/2016 [facility] HEMATOLOGY Segs 78.4 45.0 - 75.0 02/20/2016 [facility] HEMATOLOGY Segs-Bands # 11.8 1.5 - 8.1 02/20/2016 [facility] HEMATOLOGY Basophils 0.7 0.0 - 1.0 02/20/2016 [facility] HEMATOLOGY Eosinophils 3.0 0.0 - 4.0 02/20/2016 [facility] HEMATOLOGY Monocytes 7.8 2.0 - 12.0 02/20/2016 [facility] HEMATOLOGY Lymphocytes # 1.5 1.0 - 5.5 02/20/2016 [facility] HEMATOLOGY Basophils # 0.1 0.0 - 0.2 02/20/2016 [facility] HEMATOLOGY Monocytes # 1.2 0.0 - 0.8 02/20/2016 [facility] HEMATOLOGY Eosinophils # 0.4 0.0 - 0.5 02/20/2016 [facility] HEMATOLOGY RBC 4.35 4.70 - 6.10 02/20/2016 [facility] HEMATOLOGY WBC 15.1 3.7 - 10.4 02/20/2016 [facility] HEMATOLOGY MCV 82.5 80.0 - 94.0 02/20/2016 [facility] HEMATOLOGY Hct 35.9 42.0 - 54.0 02/20/2016 [facility] HEMATOLOGY Hgb 11.7 14.0 - 18.0 02/20/2016 [facility] HEMATOLOGY RDW 13.7 11.5 - 14.5 02/20/2016 [facility] HEMATOLOGY MCH 26.9 27.0 - 31.0 02/20/2016 [facility] HEMATOLOGY MCHC 32.6 32.0 - 36.0 02/20/2016 [facility] HEMATOLOGY MPV 7.0 7.4 - 10.4 02/20/2016 [facility] HEMATOLOGY Platelet 717 133 - 450 02/20/2016 [facility] CHEM PANEL Magnesium Lvl 1.7 1.8 - 2.4 02/19/2016 [facility] ELECTROLYTES Chloride Lvl 101 95 - 109 02/19/2016 [facility] ELECTROLYTES CO2 26 24 - 32 02/19/2016 [facility] ELECTROLYTES Calcium Lvl 8.4 8.5 - 10.5 02/19/2016 [facility] ELECTROLYTES BUN 10 7 - 22 02/19/2016 [facility] ELECTROLYTES Creatinine Lvl 0.5 6 0.50 - 1.40 02/19/2016 [facility] ELECTROLYTES Glucose Lvl 113 70 - 99 02/19/2016 [facility] ELECTROLYTES Sodium Lvl 135 135 - 145 02/19/2016 [facility] ELECTROLYTES Potassium Lvl 3.4 3.5 - 5.1 02/19/2016 [facility] ELECTROLYTES eGFR 137 02/19/2016 Result Comment: The [...] should be multiplied by the estimated BMI. [facility] ELECTROLYTES AGAP 11.4 10.0 - 20.0 02/19/2016 [facility] HEMATOLOGY Hgb 11.8 14.0 - 18.0 02/19/2016 [facility] HEMATOLOGY Hct 36.5 42.0 - 54.0 02/19/2016 [facility] HEMATOLOGY RBC 4.38 4.70 - 6.10 02/19/2016 [facility] HEMATOLOGY MCV 83.5 80.0 - 94.0 02/19/2016 [facility] HEMATOLOGY MCH 27.0 27.0 - 31.0 02/19/2016 [facility] HEMATOLOGY WBC 17.1 3.7 - 10.4 02/19/2016 [facility] HEMATOLOGY MPV 7.2 7.4 - 10.4 02/19/2016 [facility] HEMATOLOGY MCHC 32.4 32.0 - 36.0 02/19/2016 [facility] HEMATOLOGY RDW 14.0 11.5 - 14.5 02/19/2016 [facility] HEMATOLOGY Platelet 723 133 - 450 02/19/2016 [facility] HEMATOLOGY Eosinophils # 0.2 0.0 - 0.5 02/19/2016 [facility] HEMATOLOGY Monocytes # 0.8 0.0 - 0.8 02/19/2016 [facility] HEMATOLOGY Lymphocytes # 1.5 1.0 - 5.5 02/19/2016 [facility] HEMATOLOGY Segs-Bands # 14.5 1.5 - 8.1 02/19/2016 [facility] HEMATOLOGY Basophils 0.5 0.0 - 1.0 02/19/2016 [facility] HEMATOLOGY Eosinophils 1.0 0.0 - 4.0 02/19/2016 [facility] HEMATOLOGY Monocytes 4.7 2.0 - 12.0 02/19/2016 [facility] HEMATOLOGY Lymphocytes 8.9 20.0 - 40.0 02/19/2016 [facility] HEMATOLOGY Segs 84.9 45.0 - 75.0 02/19/2016 [facility] HEMATOLOGY Basophils # 0.1 0.0 - 0.2 02/19/2016 [facility] HEMATOLOGY MPV 7.6 7.4 - 10.4 02/18/2016 [facility] HEMATOLOGY RDW 13.8 11.5 - 14.5 02/18/2016 [facility] HEMATOLOGY MCHC 32.4 32.0 - 36.0 02/18/2016 [facility] HEMATOLOGY Platelet 737 133 - 450 02/18/2016 [facility] HEMATOLOGY Hct 38.7 42.0 - 54.0 02/18/2016 [facility] HEMATOLOGY MCV 84.1 80.0 - 94.0 02/18/2016 [facility] HEMATOLOGY MCH 27.3 27.0 - 31.0 02/18/2016 [facility] HEMATOLOGY RBC 4.59 4.70 - 6.10 02/18/2016 [facility] HEMATOLOGY Hgb 12.5 14.0 - 18.0 02/18/2016 [facility] HEMATOLOGY WBC 16.0 3.7 - 10.4 02/18/2016 [facility] HEMATOLOGY Basophils # 0.1 0.0 - 0.2 02/18/2016 [facility] HEMATOLOGY Eosinophils # 0.4 0.0 - 0.5 02/18/2016 [facility] HEMATOLOGY Monocytes # 1.2 0.0 - 0.8 02/18/2016 [facility] HEMATOLOGY Lymphocytes # 1.4 1.0 - 5.5 02/18/2016 [facility] HEMATOLOGY Segs-Bands # 12.9 1.5 - 8.1 02/18/2016 [facility] HEMATOLOGY Basophils 0.9 0.0 - 1.0 02/18/2016 [facility] HEMATOLOGY Eosinophils 2.2 0.0 - 4.0 02/18/2016 [facility] HEMATOLOGY Monocytes 7.7 2.0 - 12.0 02/18/2016 [facility] HEMATOLOGY Lymphocytes 8.6 20.0 - 40.0 02/18/2016 [facility] HEMATOLOGY Segs 80.6 45.0 - 75.0 02/18/2016 [facility] IMMUNOLOGY Hep B Core IgM Negat dimas *NA* (02/18/16 7:03 AM) Negative 02/18/2016 [facility] IMMUNOLOGY Hep A IgM Negat dimas *NA* (02/18/16 7:03 AM) Negative 02/18/2016 [facility] IMMUNOLOGY Hep C Ab Negat dimas *NA* (02/18/16 7:03 AM) 02/18/2016 [facility] IMMUNOLOGY Hep Bs Ag Negat dimas *NA* (02/18/16 7:03 AM) Negative 02/18/2016 [facility] RAPID Grp A Strep Scr Negative (02/17/16 4:29 PM) Negative 02/17/2016 [facility] BLOOD BANK RESULTS ABO/Rh A POS 02/17/2016 [facility] BLOOD BANK RESULTS Antibody Scrn Negative (02/17/16 3:42 PM) 02/17/2016 [facility] CHEM PANEL Lactic Acid Lvl 0.9 0.5 - 2.2 02/17/2016 [facility] CHEM PANEL Procalcitonin Lvl 0.10 0.00 - 0.10 02/17/2016 [facility] HEMATOLOGY PT 14.6 12.0 - 14.7 02/17/2016 [facility] HEMATOLOGY INR 1.11 0.85 - 1.17 02/17/2016 [facility] HEMATOLOGY PTT 32.8 22.9 - 35.8 02/17/2016 [facility] IMMUNOLOGY HIV 1/2 Ab Negat dimas *NA* (02/17/16 10:07 AM) Negative 02/17/2016 [facility] URINE AND STOOL UA Bili Negative *NA* (02/17/16 3:45 AM) Negative 02/17/2016 [facility] URINE AND STOOL UA Blood Trace *ABN* (02/17/16 3:45 AM) Negative 02/17/2016 [facility] URINE AND STOOL UA Spec Grav 1.025 <=1.030 02/17/2016 [facility] URINE AND STOOL UA pH 6.0 5.0 - 8.0 02/17/2016 [facility] URINE AND STOOL UA Protein Trace *ABN* (02/17/16 3:45 AM) Negative 02/17/2016 [facility] URINE AND STOOL UA RBC 0-2 /HPF 0 - 2 02/17/2016 [facility] URINE AND STOOL UA Sq Epi Rare /LPF Few /LPF 02/17/2016 [facility] URINE AND STOOL UA WBC 3-5 /HPF None Seen /HPF 02/17/2016 [facility] URINE AND STOOL UA Nitrite Negative (02/17/16 3:45 AM) Negative 02/17/2016 [facility] URINE AND STOOL UA Leuk Est Trace *ABN* (02/17/16 3:45 AM) Negative 02/17/2016 [facility] URINE AND STOOL UA Urobilinogen 2.0 0.1 - 1.0 02/17/2016 [facility] URINE AND STOOL UA Turbidity Clear (02/17/16 3:45 AM) Clear 02/17/2016 [facility] URINE AND STOOL UA Color Yellow *NA* (02/17/16 3:45 AM) Yellow 02/17/2016 [facility] URINE AND STOOL UA Ketones Negative *NA* (02/17/16 3:45 AM) Negative 02/17/2016 [facility] URINE AND STOOL UA Glucose 100 mg/dL Negative mg/dL 02/17/2016 [facility] URINE AND STOOL UA Bacteria Occasional /HPF None Seen /HPF 02/17/2016 [facility] URINE AND STOOL UA Mucus Moderate /LPF None Seen /LPF 02/17/2016 [facility] CHEM PANEL Lipase Lvl 91 73 - 393 02/17/2016 [facility] CHEM PANEL Amylase Lvl 46 25 - 115 02/17/2016 [facility] CHEM PANEL Globulin 5.8 2.7 - 4.2 02/17/2016 [facility] CHEM PANEL B/C Ratio 15 6 - 25 02/17/2016 [facility] CHEM PANEL A/G Ratio 0.3 0.7 - 1.6 02/17/2016 [facility] CHEM PANEL AGAP 8.8 10.0 - 20.0 02/17/2016 [facility] CHEM PANEL eGFR 128 02/17/2016 Result Comment: [...] should be multiplied by the estimated BMI. [facility] CHEM PANEL AST 25 0 - 37 02/17/2016 [facility] CHEM PANEL Bili Total 0.2 0.2 - 1.3 02/17/2016 [facility] CHEM PANEL Alk Phos 128 39 - 136 02/17/2016 [facility] CHEM PANEL CO2 30 24 - 32 02/17/2016 [facility] CHEM PANEL Calcium Lvl 8.5 8.5 - 10.5 02/17/2016 [facility] CHEM PANEL Total Protein 7.8 6.4 - 8.4 02/17/2016 [facility] CHEM PANEL Albumin Lvl 2.0 3.5 - 5.0 02/17/2016 [facility] CHEM PANEL ALT 40 0 - 65 02/17/2016 [facility] CHEM PANEL Creatinine Lvl 0.67 0.50 - 1.40 02/17/2016 [facility] CHEM PANEL Sodium Lvl 129 135 - 145 02/17/2016 [facility] CHEM PANEL Potassium Lvl 3.8 3.5 - 5.1 02/17/2016 [facility] CHEM PANEL Chloride Lvl 94 95 - 109 02/17/2016 [facility] CHEM PANEL Glucose Lvl 101 70 - 99 02/17/2016 [facility] CHEM PANEL BUN 10 7 - 22 02/17/2016 [facility] DRUG SCREEN U Amph Scr Nega tive *NA* (02/14/16 3:15 AM) Negative 02/14/2016 [facility] DRUG SCREEN U Benzodia Scr Nega tive *NA* (02/14/16 3:15 AM) Negative 02/14/2016 [facility] DRUG SCREEN U Cannab Scr Posi tive *ABN* (02/14/16 3:15 AM) Negative 02/14/2016 [facility] DRUG SCREEN U Cocaine Scr Posi tive *ABN* (02/14/16 3:15 AM) Negative 02/14/2016 [facility] DRUG SCREEN U Opiate Scr Posi tive *ABN* (02/14/16 3:15 AM) Negative 02/14/2016 [facility] DRUG SCREEN U Mary Scr Nega tive *NA* (02/14/16 3:15 AM) Negative 02/14/2016 [facility] DRUG SCREEN U Phencyc Scr Nega tive *NA* (02/14/16 3:15 AM) Negative 02/14/2016 [facility] DRUG SCREEN UDS Note See Note (02/14/16 3:15 AM) 02/14/2016 [facility] URINE AND STOOL UA Nitrite Negative (02/14/16 3:15 AM) Negative 02/14/2016 [facility] URINE AND STOOL UA Urobilinogen 4.0 0.1 - 1.0 02/14/2016 [facility] URINE AND STOOL UA Leuk Est Trace *ABN* (02/14/16 3:15 AM) Negative 02/14/2016 [facility] URINE AND STOOL UA Turbidity Slight *ABN* (02/14/16 3:15 AM) Clear 02/14/2016 [facility] URINE AND STOOL UA Bili Negative *NA* (02/14/16 3:15 AM) Negative 02/14/2016 [facility] URINE AND STOOL UA pH 5.0 5.0 - 8.0 02/14/2016 [facility] URINE AND STOOL UA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
--- OUTSIDE RECORDS SUMMARY | 2020-02-02 16:31 | XMS REPORT | Continuity of Care Document ---
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 peripherally. [facility] potassium chloride 2016-05-26 16:00:00 No Notes: (Same as: KCL) Infuse no faster than 10 mEq/hr if given peripherally. Nasra Trinidad Potassium Chloride 1.33 MEQ/ML Oral Solution 2016-05-26 13:00:00 No Notes: (Same as: Potassium Chloride) Dacia daniloal Amos Amlodipine 2016-05-25 15:00:00 No Notes: (S shon as: Norvasc) Nasra Stevenann Fioricet 2016-05-24 23:46:00 No Notes: (fsnztjaoflxey-aiylkntzzo-vzbpaiiu 325-50-40mg) Do not exceed 4 gm/day of acetaminophen. (Same as: Esgic, Fioricet) [facility] Hydral[facility] Hydrochloride 25 MG Oral Tablet 2016-05-24 20:38:00 No Notes: (Same as: Apresoline) May interfere w/enteral feedings Take With Food. Emma maico Trinidad Hydralazine 2016-05-23 16:24:00 No 5 mg, Route: IV, ONCE, Dosing Weight 60, kg, Start date: 05/23/16 10:24:00 DREDGE MECHANIC, Stop date: 05/23/16 10:24:00 DREDGE MECHANIC [facility] acetaminophen 325 mg oral tablet 2016-05-23 07:55:00 No Notes: Do not exceed 4 gm/day. (Same as: Tylenol) [facility] sodium chloride 0.45% 1000 ml INJ 1,000 mL 2016-05-22 15:19:00 No 1,000 mL, Rate: 75 ml/hr, Infuse over: 13.3 hr, Route: IV, Dosing Weight 60 kg, Total Volume: 1,000, Start date: 05/22/16 9:19:00 DREDGE MECHANIC, Duration: 30 day, Stop date: 06/21/16 9:18:00 DREDGE MECHANIC [facility] adri Sodium Chloride 0.9% IV 2016-05-22 04:55:00 No 25 mL, Route: IV, Start date: 05/21/16 22:55:00 DREDGE MECHANIC, Duration: 30 day, Stop date: 06/20/16 22:54:00 DREDGE MECHANIC, PRN Line Flush [facility] BD Normal Saline Flush 2016-05-22 04:55:00 No Notes: (Same as: BD Posiflush) [facility] Vancomycin 2016-05-21 15:00:00 No 2001 mg: infuse over 2.5 hours [facility] Plavix 2016-05-20 23:33:00 No Notes: (Same As: Plavix) [facility] Coreg 2016-05-20 16:05:00 No Notes: Give with food. (Same As: Coreg) [facility] multivitamin with minerals 2016-05-20 15:00:00 No Notes: (Same as:Thera-M, Theragran-M) WASTE: F/P - Black; E - Municipal Trash Bin Give with food. [facility] Thiamine 2016-05-20 15:00:00 No Notes: (David e As: Vitamin B1) [facility] Vancomycin 2016-05-20 15:00:00 No 750 mg, Route: IVPB, Drug form: INJ, [id number], Dosing Weight 60, kg, Start date: 05/20/16 9:00:00 DREDGE MECHANIC, Duration: 30 day, Stop date: 06/18/16 9:00:00 DREDGE MECHANIC [facility] Vancomycin 2016-05-20 13:09:00 No 750 mg, Route: IVPB, ONCE, Dosing Weight 60, kg, Start date: 05/20/16 7:09:00 DREDGE MECHANIC, Stop date: 05/20/16 7:09:00 DREDGE MECHANIC [facility] Hydralazine 2016-05-20 07:03:00 No Notes: (Same as: Apresoline) Push over 5 minutes Nasra Trinidad heparin sodium, porcine 2500 UNT/ML Injectable Solution 2016-05-20 03:00:00 No Notes: porcine heparin [facility] Lipitor 2016-05-20 03:00:00 No Notes: (Same as: Lipitor) [facility] Zosyn 2016-05-19 20:10:00 No Notes: (Same as: Zosyn) Dosing based on Piperacillin component MEDICATION WASTE Product Size: 3375 mg Product Wasted: ___ mg [facility] Nifedical XL 2016-05-19 15:00:00 No Notes: (Same as: Procardia XL) [facility] Famotidine 20 MG Oral Tablet [Pepcid] 2016-05-19 15:00:00 N o Notes: (Same as: Pepcid) [facility] Baclofen 2016-05-19 15:00:00 No Notes: (David e As: Lioresal) [facility] clopidogrel 2016-05-19 15:00:00 No Notes: ( Same As: Plavix) [facility] cyclobenzaprine 10 mg oral tablet 2016-05-19 04:40:00 Yes 10 mg = 1 tab, PO, TID, PRN for spasms, # 30 tab, 0 Refill(s) [facility] baclofen 10 mg oral tablet 2016-05-19 04:39:00 Yes 10 mg = 1 tab, PO, TID, # 270 tab, 0 Refill(s) [facility] atorvastatin 40 MG Oral Tablet [Lipitor] 2016-05-19 04:39:00 Yes 40 mg = 1 tab, PO, Bedtime, # 90 tab, 0 Refill(s) [facility] Famotidine 20 MG Oral Tablet [Pepcid] 2016-05-19 04:38:00 Y es 20 mg = 1 tab, PO, BID, # 180 tab, 0 Refill(s) Nasra Stevenann 24 HR Nifedipine 30 MG Extended Release Tablet [Nifedical] 2016-05-19 04:38:00 No 30 mg = 1 tab, PO, Daily, # 30 tab, 0 Refill(s) [facility] Sodium Chloride 0.154 MEQ/ML Injectable Solution 2016-05-19 04:2 0:00 No 1,000 mL, Rate: 125 ml/hr, I nfuse over: 8 hr, Route: IV, Dosing Weight 59.3 kg, Total Volume: 1,000, Start date: 05/18/16 22:20:00 DREDGE MECHANIC, Duration: 30 day, Stop date: 06/17/16 22:19:00 DREDGE MECHANIC Landen Trinidad Saline Flush 0.9% 2016-05-19 04:20:00 No Notes: (Same as: BD Posiflush) [facility] Docusate 2016-05-19 04:20:00 No Notes: (Same as: Colace) (Do Not Crush) [facility] Hydralazine 2016-05-19 04:16:00 No Notes: (Same as: Apresoline) Push over 5 minutes [facility] Hydralazine 2016-05-19 04:08:00 No 5 mg, Route: IV, ONCE, Dosing Weight 59.3, kg, Start date: 05/18/16 22:08:00 DREDGE MECHANIC, Stop date: 05/18/16 22:08:00 DREDGE MECHANIC [facility] Sodium Chloride 0.154 MEQ/ML Injectable Solution 2016-05-19 03:4 3:00 No 1,000 mL, 2,000 ml/hr, Infus e Over: 30 minutes, Route: IV, 1,000, Drug form: INJ, ONCE, Priority: STAT, Dosing Weight 59.3 kg, Start date: 05/18/16 21:43:00 DREDGE MECHANIC, Duration: 1 doses or times, Stop date: 05/18/16 21:43:00 DREDGE MECHANIC Nasra Trinidad Labetalol 2016-05-19 02:25:00 No 20 mg, Route: IVP, Drug form: INJ, ONCE, Dosing Weight 59.3, kg, Priority: STAT, Start date: 05/18/16 20:25:00 DREDGE MECHANIC, Stop date: 05/18/16 20:25:00 DREDGE MECHANIC Sue Garber Vancomycin 2016-05-19 02:21:00 No 2001 mg: infuse over 2.5 hours MEDICATION WASTE Product Size: 1000 mg Product Wasted: ___ mg Nasra Trinidad Saline Flush 0.9% 2016-05-19 02:21:00 No Notes: (Same as: BD Posiflush) Nasra Trinidad Zosyn 2016-05-19 02:21:00 No 3.375 gm, Route: IVPB, ONCE, Dosing Weight 59.3, kg, Priority: STAT, Start date: 05/18/16 20:21:00 DREDGE MECHANIC, Stop date: 05/18/16 20:21:00 DREDGE MECHANIC Nasra Stevenann Procardia XL 2016-04-28 14:00:00 No Notes: (Same as: Procardia XL) "Do Not Crush" "Avoid grapefruit and grapefruit juice" Nasra Hutto 24 HR Nifedipine 60 MG Extended Release Tablet 2016-04-28 13:20: 00 Yes 60 mg = 1 tab, PO, Daily, # 30 tab, 0 Refill(s) [facility] Hydralazine Hydrochloride 50 MG Oral Tablet 2016-04-28 13:20:00 Yes 50 mg = 1 tab, PO, Q8H, # 90 tab, 0 Refill(s) [facility] tramadol hydrochloride 50 MG Oral Tablet 2016-04-28 04:35:00 No Notes: Not to exceed 400mg/day. (Same As: Ultram) [facility] Hydralazine Hydrochloride 50 MG Oral Tablet 2016-04-27 17:38:00 No Notes: (Same as: Apresoline) May interfere w/enteral feedings Take With Food [facility] 24 HR Nifedipine 30 MG Extended Release Tablet 2016-04-27 14:00: 00 No 30 mg, 1 tab, Route: PO, Drug form: ERTA B, Daily, Dosing Weight 62.9, kg, Start date: 04/27/16 9:00:00 CDT, Duration: 30 day, Stop date: 05/26/16 9:00:00 DREDGE MECHANIC Nasra Trinidad clopidogrel 2016-04-27 14:00:00 No Notes: [...] WASTE: F/P - Black; E - Yellow [facility] heparin 2016-04-27 03:18:00 No Notes: porci ne heparin [facility] Sodium Chloride 0.154 MEQ/ML Injectable Solution 2016-04-27 03:1 6:00 No 1,000 mL, Rate: 100 ml/hr, I nfuse over: 10 hr, Route: IV, Dosing Weight 62.9 kg, Total Volume: 1,000, Start date: 04/26/16 22:16:00 CDT, Duration: 30 day, Stop date: 05/26/16 22:15:00 DREDGE MECHANIC Landen Trinidad Sodium Chloride 0.154 MEQ/ML Injectable Solution 2016-04-27 03:1 4:00 No 500 mL, 500 ml/hr, Infuse Ov er: 1 hr, Route: IV, 500, Drug form: INJ, ONCE, Priority: STAT, Dosing Weight 62.9 kg, Start date: 04/26/16 22:14:00 CDT, Duration: 1 doses or times, Stop date: 04/26/16 22:14:00 CDT [facility] Labetalol 2016-04-27 00:12:00 No Notes: (Same as: Normodyne, Trandate) Push over 2 minutes Give bolus over 2-3 minutes. [facility] Labetalol 2016-04-26 23:15:00 No Notes: (Same as: Normodyne, Trandate) Push over 2 minutes Give bolus over 2-3 minutes. [facility] Ativan 2016-04-26 22:07:00 No Notes: (Same as: Ativan) [facility] tramadol hydrochloride 50 MG Oral Tablet 2016-04-26 22:02:00 Yes 50 mg = 1 tab, PO, Q6H, PRN Pain, # 40 tab, 0 Refill(s) [facility] cyclobenzaprine 10 mg oral tablet 2016-04-26 22:02:00 No 10 mg = 1 tab, PO, TID, PRN for spasms, # 30 tab, 0 Refill(s) [facility] baclofen 10 mg oral tablet 2016-04-26 22:02:00 Yes 10 mg = 1 tab, PO, TID, # 270 tab, 0 Refill(s) [facility] Hydralazine 2016-04-26 22:02:00 No Notes: (Same as: Apresoline) Push over 5 minutes [facility] Versed 2016-04-26 21:27:00 No 2 mg, Route: IVP, ONCE, Dosing Weight 68.182, kg, Priority: STAT, Start date: 04/26/16 16:27:00 CDT, Stop date: 04/26/16 16:27:00 CDT [facility] Saline Flush 0.9% 2016-04-26 21:21:00 No Notes: (Same as: BD Posiflush) [facility] Sodium Chloride 0.154 MEQ/ML Injectable Solution 2016-04-26 21:2 1:00 No 1,000 mL, 2,000 ml/hr, Infus e Over: 30 minutes, Route: IV, ONCE, Priority: STAT, Dosing Weight 63.9 kg, Start date: 04/26/16 16:21:00 CDT, Duration: 1 doses or times, Stop date: 04/26/16 16:21:00 CDT [facility] Haldol 2016-04-26 21:20:00 No 5 mg, Route: IM, ONCE, Dosing Weight 63.9, kg, Priority: STAT, Start date: 04/26/16 16:20:00 CDT, Stop date: 04/26/16 16:20:00 CDT [facility] Famotidine 20 MG Oral Tablet [Pepcid] 2016-04-20 15:21:00 Y es 20 mg = 1 tab, PO, Daily, # 60 tab, 0 Refill(s), other [facility] amLODIPine 5 mg oral tablet 2016-04-20 14:10:00 [...] Yes 500 mg = 1 cap, PO, [id number], X 60 day, # 120 cap, 0 [...] No 500 mg = 1 cap, PO, [id number], 0 Refill(s) Nasra doadri Hydralazine Hydrochloride 25 MG Oral Tablet 2016-04-20 13:56:00 No 25 mg = 1 tab, PO, Q6H, 0 Refill(s) Niranjan Trinidad clindamycin 150 mg oral capsule 2016-04-20 13:56:00 Yes 300 mg = 2 cap, PO, [id number], X 7 day, # 42 cap, 0 Refill(s) Nasra Stevenann Plavix 2016-04-20 01:00:00 No Notes: (Same As: Plavix) [facility] MAGNESIUM GLUCONATE 2016-04-19 14:00:00 No Notes: (Same as: Almora) Magnesium gluconate 500mg=27mg elemental magnesium Dose= mg magnesium gluconate(___mg elemental magnesium) [facility]rial mAos Clindamycin 2016-04-18 18:00:00 No Notes: ( Same As: Cleocin) [facility] 24 HR Nifedipine 30 MG Extended Release Tablet 2016-04-17 14:00: 00 No Notes: (Same as: Procardia XL) "Do Not C ocasio" "Avoid grapefruit and grapefruit juice" [facility] multivitamin 2016-04-17 14:00:00 No Notes: Give with food. (Same As : Therapeutic multivitamins) [facility] racieladri Thiamine 2016-04-17 14:00:00 No Notes: (David e As: Vitamin B1) [facility] 2016-[facility] 14:00:00 No Notes: (Same as: Norvasc) [facility] remove patch 2016-04-17 14:00:00 No Notes: Remove old patch before application of new patch. WASTE: F/P - P Waste Black; E - P Waste Black [facility] atorvastatin 2016-04-17 02:00:00 No Notes: (Same As: Lipitor) [facility] Hydralazine 2016-04-16 23:00:00 No Notes: (Same as: Apresoline) May interfere w/enteral feedings Take With Food. [facility] 24 HR Nifedipine 30 MG Extended Release Tablet 2016-04-16 20:05: 00 No Notes: (Same as: Procardia XL) "Do Not C ocasio" "Avoid grapefruit and grapefruit juice" [facility] Clonidine Hydrochloride 0.2 MG Oral Tablet 2016-04-16 20:04:00 No Notes: (Same As: Catapres) [facility] adri [facility] 2016-04-16 20:03:00 No Notes: (Same as: Norvasc) [facility] Sodium Chloride 0.9% IV 2016-04-16 20:00:00 No IV, 2000 ml/hr, ONCALL, Start date: 04/16/16 15:00:00 CDT, Duration: 1, 2,000 ml [facility] sodium citrate 2016-04-16 20:00:00 No Notes: Same as Anticoagulant Citrate Dextrose Soln [facility] (ACD) Formula A Nasra Trinidad calcium gluconate 2,400 mg + potassium c hloride 12 mEq + magnesium sulfate 6 mEq + sodium chloride 2016-04-16 20:00:00 No Route: IV, Drug form: INJ, ONCALL, Start date: 04/16/16 15:00:00 CDT, Duration: 30 day, Stop date: 05/16/16 13:59:00 DREDGE MECHANIC Nasra Trinidad Calcium Gluconate 2016-04-16 14:54:00 No [...] WASTE: F/P - Black; E - Yellow [facility] hydroxyurea 2016-04-16 12:05:00 No 1,607.5 mg, Route: PO, Drug form: CAP, Daily, Dosing Weight 64.3, kg, Priority: STAT, Start date: 04/16/16 7:05:00 CDT, Duration: 30 day, Stop date: 05/15/16 9:00:00 DREDGE MECHANIC [facility] sodium chloride 0.9% 1000 ml INJ 1,000 mL 2016-04-16 10:22:00 No 1,000 mL, Rate: 75 ml/hr, Infuse over: 13.3 hr, Route: IV, Dosing Weight 64.3 kg, Total Volume: 1,000, Start date: 04/16/16 5:22:00 CDT, Stop date: 05/16/16 5:21:00 DREDGE MECHANIC [facility] Heparin 80 unit/kg Bolus (Heparin Dosing Weight) 2016-04-16 10:0 2:00 No Route: IVP, PRN, 5,100 unit, 5.1 mL, Drug form: INJ, PRN, Heparin Protocol, Start date: 04/16/16 5:02:00 CDT Stop date: 05/16/16 4:01:00 DREDGE MECHANIC, 30 day [facility] heparin additive 25,000 unit [18 unit/kg /hr] + Premix Diluent Dextrose 5% 500 mL 2016-04-16 10:02:00 No 500 mL, Rate: 23.15 ml/hr, Infuse over: 21.6 hr, Route: IV, Dosing Weight 64.3 kg, Total Volume: 500 mL, Start date: 04/16/16 5:02:00 CDT, Duration: 30 day, Stop date: 05/16/16 5:01:00 DREDGE MECHANIC [facility] Heparin 40 unit/kg Bolus (Heparin Dosing Weight) 2016-04-16 10:0 2:00 No Route: IVP, PRN, 2,600 unit, 2.6 mL, Drug form: INJ, PRN, Heparin Protocol, Start date: 04/16/16 5:02:00 CDT Stop date: 05/16/16 4:01:00 DREDGE MECHANIC, 30 day [facility] Ondansetron 2016-04-16 09:22:00 No Notes: (Same as: Nitin) MEDICATION WASTE Product Size: 4 mg Product Wasted: ___ mg [facility] Acetaminophen 325 MG / Hydrocodone Bitartrate 5 MG Oral Tabl et 2016-04-16 09:22:00 No Notes: (Sa me as: [place] 325/5) Do not exceed 4gm/day of acetaminophen. [...] 19:32:00 CDT, Stop date: 03/12/16 19:32:00 CDT Wi americo Trinidad Aspirin 2016-03-13 00:30:00 No 325 mg, Route: PO, Drug form: TAB, ONCE, Dosing Weight 63.636, kg, Priority: STAT, Start date: 03/12/16 19:30:00 CDT, Stop date: 03/12/16 19:30:00 CDT Wi americo Trinidad Ketorolac 2016-03-12 23:52:00 No 4 days MEDICATION WASTE Product Size: 30 mg Product Wasted: ___ mg Nasra Trinidad Ketorolac 2016-03-12 23:51:00 No 30 mg, Route: IM, Drug form: INJ, ONCE, Dosing Weight 63.636, kg, Priority: STAT, Start date: 03/12/16 18:51:00 CDT, Stop date: 03/12/16 18:51:00 CDT Wi americo Trinidad Zofran 2016-03-12 23:26:00 No 4 mg, Route: IVP, Drug form: INJ, ONCE, Dosing Weight 63.636, kg, Priority: STAT, Start date: 03/12/16 18:26:00 CDT, Stop date: 03/12/16 18:26:00 CDT Wi americo Trinidad Sodium Chloride 0.154 MEQ/ML Injectable Solution 2016-03-12 23:2 6:00 No 1,000 mL, 1,000 ml/hr, Infus e Over: 1 hr, Route: IV, ONCE, Priority: STAT, Dosing Weight 63.636 kg, Start date: 03/12/16 18:26:00 CDT, Duration: 1 doses or times, Stop date: 03/12/16 18:26:00 CDT [facility] Amos Sodium Chloride 0.154 MEQ/ML Injectable Solution 2016-03-12 23:1 6:00 No 1,000 mL, 1,000 ml/hr, Infus e Over: 1 hr, Route: IV, ONCE, Priority: STAT, Dosing Weight 63.636 kg, Start date: 03/12/16 18:16:00 CDT, Duration: 1 doses or times, Stop date: 03/12/16 18:16:00 CDT [facility] Saline Flush 0.9% 2016-03-12 19:45:00 No Notes: (Same as: BD Posiflush) [facility] Fluconazole 2016-03-07 15:00:00 No Notes: ( Same as: Diflucan) [facility] tramadol hydrochloride 50 MG Oral Tablet 2016-03-07 14:28:00 Yes 100 mg = 2 tab, PO, Q8H, PRN Pain Score 6-10, X 5 day, # 30 tab, 0 Refill(s) [facility] levofloxacin 250 mg oral tablet 2016-03-07 14:28:00 Yes 500 mg = 2 tab, PO, [id number], X 10 day, # 20 tab, 0 Refill(s) [facility] fluconazole 100 mg oral tablet 2016-03-07 14:28:00 Yes 200 mg = 2 tab, PO, [id number], X 7 day, # 14 tab, 0 Refill(s) [facility] cyclobenzaprine 10 mg oral tablet 2016-03-07 14:28:00 Yes 10 mg = 1 tab, PO, TID, PRN Spasm, X 10 day, # 30 tab, 0 Refill(s) [facility] Aspirin 81 MG Enteric Coated Tablet 2016-03-07 14:28:00 Yes 81 mg = 1 tab, PO, Daily, # 30 tab, 2 Refill(s) [facility] atorvastatin 20 mg oral tablet 2016-03-07 14:28:00 Yes 20 mg = 1 tab, PO, Bedtime, # 30 tab, 2 Refill(s) [facility] Flexeril 2016-03-06 22:38:00 No Notes: [...] Stop date: 04/01/16 10:59:00 CDT [facility] Fluconazole 2016-03-02 15:00:00 No Notes: ( Same as: Diflucan) Nasra Stevenann Saline Flush 0.9% 2016-03-02 05:00:00 No Notes: preservative free. [facility] Saline Flush 0.9% 2016-03-01 21:09:00 No 10 mL, Route: IVP, Drug Form: INJ, Dosing Weight 68.182, kg, PRN, PRN Line Flush, Start date: 03/01/16 16:09:00 CDT, Duration: 30 day, Stop date: 03/31/16 16:08:00 CDT [facility] Fluconazole 2016-03-01 16:00:00 No Notes: ( Same as: Diflucan) Nasra Stevenann tramadol hydrochloride 50 MG Oral Tablet 2016-02-29 17:47:00 No Notes: Not to exceed 400mg/day. (Same As: Ultram) Nasra Amos Zosyn 2016-02-29 14:00:00 No Notes: (Same as: Zosyn) Dosing based on Piperacillin component MEDICATION WASTE Product Size: 3375 mg Product Wasted: ___ mg [facility] Ceftriaxone 2016-02-29 04:00:00 No Notes: (Same As: Rocephin). Use with 100 mL NS and infuse over 30 min MEDICATION WASTE Product Size: 1000 mg Product Wasted: ___ mg [facility] Fluconazole 2016-02-28 16:00:00 No Notes: (Same as: Diflucan) Do not refrigerate [facility] Floranex 2016-02-28 15:57:00 No Notes: (Same as Floranex) Do NOT refrigerate [facility] gabapentin 2016-02-27 21:00:00 No Notes: (S shon as: Neurontin) [facility] NS + KCL 20mEq/L 1000ml (Premix) 1,000 mL 2016-02-27 14:14:00 No Notes: PREMIX IV - Do Not Alter WASTE: F/P - Sink; E - Municipal Trash [facility] Magnesium Sulfate 2016-02-26 22:51:00 No Notes: WASTE: F/P - Sink; E - Municipal Trash Bin [facility] Aspirin 2016-02-26 14:22:00 No Notes: Do not crush or chew. (Same As: Ecotrin) [facility] remove patch 2016-02-26 06:10:00 No Notes: Remove old patch before application of new patch. WASTE: F/P - P Waste Black; E - P Waste Black [facility] Tylenol 2016-02-26 01:23:00 No Notes: Do not exceed 4 gm/day. (Same as: Tylenol) [facility] [facility] Vancomycin 2016-02-25 18:30:00 No 2001 mg: infuse over 2.5 hours MEDICATION WASTE Product Size: 1000 mg Product Wasted: ___ mg [facility] Rocephin 2016-02-25 18:00:00 No Notes: (Same As: Rocephin). Use with 100 mL NS and infuse over 30 min MEDICATION WASTE Product Size: 2000 mg Product Wasted: ___ mg [facility] Sodium Chloride 0.9% IV 2016-02-25 14:29:00 No 25 mL, Route: IVP, Start date: 02/25/16 9:29:00 CDT, Duration: 30 day, Stop date: 03/26/16 9:28:00 CDT, PRN Line Flush [facility] Famotidine 20 MG Oral Tablet 2016-02-25 14:29:00 No Notes: (Same as: Pepcid) [facility] BD Normal Saline Flush 2016-02-25 14:29:00 No Notes: (Same as: BD Posiflush) [facility] Amlodipine 2016-02-25 14:29:00 No Notes: (S shon as: Norvasc) [facility] sodium chloride 0.9% 1000 ml INJ 1,000 mL 2016-02-25 14:24:00 No 1,000 mL, Rate: 75 ml/hr, Infuse over: 13.3 hr, Route: IV, Dosing Weight 68.182 kg, Total Volume: 1,000, Start date: 02/25/16 9:24:00 CDT, Duration: 30 day, Stop date: 03/26/16 9:23:00 CDT [facility] Aspirin 2016-02-25 07:48:00 No Notes: Take with food. [facility] Doxycycline 2016-02-25 07:45:00 No Notes: (Same as: Vibramycin) No milk/antacids/iron. [facility] Nicotine 2016-02-25 06:19:00 No 14 mg, Route: TOP, Drug form: ERFILM, ONCE, Dosing Weight 68.182, kg, Start date: 02/25/16 1:19:00 CDT, Stop date: 02/25/16 1:19:00 CDT [facility] adri Nicotine 2016-02-25 06:07:00 No Notes: (Same as: Habitrol) "Remove old patch before application of new patch" WASTE: F/P - P Waste Black; E - P Waste Black [facility] Rocephin 2016-02-25 05:14:00 No Notes: (Same As: Rocephin). Use with 100 mL NS and infuse over 30 min MEDICATION WASTE Product Size: 2000 mg Product Wasted: ___ mg [facility] Vancomycin 2016-02-25 04:53:00 No 2001 mg: infuse [...] 14:00:00 No Notes: (S shon as: Norvasc) [facility] Magnesium Oxide 2016-02-19 22:00:00 No Notes: (Same as: Mag-Ox 400) Magnesium oxide [id number] elemental magnesium Dose=____mg magnesium oxide (___mg elemental magnesium) [facility] renea Famotidine 2016-02-19 22:00:00 No Notes: (S shon as: Pepcid) [facility] Doxycycline 2016-02-19 19:00:00 No Notes: (Same as: Vibramycin) "Do Not Crush" [facility] potassium chloride 2016-02-19 18:13:00 No Notes: (Same as: K-Dur 20) "Do Not Crush" With food and full glass of water [facility] Zofran 2016-02-19 04:01:00 No Notes: (Same as: Zofran) MEDICATION WASTE Product Size: 4 mg Product Wasted: ___ mg [facility] Keflex 2016-02-18 22:00:00 No Notes: Take on empty stomach. (Same As: Keflex) [facility] Tylenol 2016-02-18 03:08:00 No Notes: Do not exceed 4 gm/day. (Same as: Tylenol) [facility] Doxycycline 2016-02-17 21:34:00 No 100 mg, PO, Q12H, 0 Refill(s) [facility] tramadol hydrochloride 50 MG Oral Tablet 2016-02-17 21:34:00 No 50 mg = 1 tab, PO, Q8H, PRN Pain, # 60 tab, 0 Refill(s) [facility] carbamide peroxide otic 6.5% solution 2016-02-17 14:00:00 N o Notes: (carbamide peroxide 6.5% 15 ml otic SOLN) (Same As: Debrox) [facility] Ceftriaxone 2016-02-17 14:00:00 No Notes: (Same As: Rocephin). Use with 100 mL NS and infuse over 30 min MEDICATION WASTE Product Size: 1000 mg Product Wasted: ___ mg [facility] Saline Flush 0.9% 2016-02-17 13:19:00 No Notes: Same as: BD Posiflush Sterile [facility] Lactated Ringers Injection IV 1000 mL 2016-02-17 13:19:00 N o 1,000 mL, Rate: 125 ml/hr, Infuse over: 8 hr, Route: IV, Dosing Weight 70.455 kg, Total Volume: 1,000, Start date: 02/17/16 8:19:00 CDT, Duration: 30 day, Stop date: 03/18/16 8:18:00 CDT [facility] adri Sodium Chloride 0.154 MEQ/ML Injectable Solution 2016-02-17 13:1 3:00 No 1,000 mL, Rate: 100 ml/hr, I nfuse over: 10.1 hr, Route: IV, Dosing Weight 85.455 kg, Total Volume: 1,011.2, Start date: 02/17/16 8:13:00 CDT, Duration: 3 day, Stop date: 02/20/16 8:12:00 CDT [facility] [place] Sodium Chloride 0.154 MEQ/ML Injectable Solution 2016-02-17 13:1 0:00 No 250 mL, Rate: 10 ml/hr, Infu se over: 25.3 hr, Route: IV, Dosing Weight 85.455 kg, Total Volume: 252.5, Start date: 02/17/16 8:10:00 CDT, Duration: 30 day, Stop date: 03/18/16 8:09:00 CDT, Infuse at 50 mcg/hr. Final concentration = 50 mcg/10 mL [facility] Octreotide 2016-02-17 13:10:00 No Notes: (Same As: SandoSTATIN). Refrigerate. MEDICATION WASTE Product Size: 50 microgram Product Wasted: ___ microgram [facility] Ondansetron 2016-02-17 13:10:00 No Notes: (Same as: Zofran) MEDICATION WASTE Product Size: 4 mg Product Wasted: ___ mg [facility] pantoprazole 2016-02-17 13:10:00 No Notes: For IV push reconstitute with 10 ml 0.9% sodium chloride and push over 2 minutes. (Same as: Protonix) [facility] Saline Flush 0.9% 2016-02-17 13:10:00 No Notes: Same as: BD Posiflush Sterile [facility] Doxycycline 2016-02-17 13:09:00 No Notes: ( Same as: Vibramycin) [facility] Omnipaque 300 2016-02-17 11:00:00 No Notes: (Same as:Omnipaque 300). WASTE: F/P - Black; E - [employer] [facility] Protonix 2016-02-17 07:50:00 No Notes: For IV push reconstitute with 10 ml 0.9% sodium chloride and push over 2 minutes. (Same as: Protonix) [facility] GI cocktail 2016-02-17 07:50:00 No Notes: G.I. Cocktail = antacid with simethicone 22.5 mL - lidocaine viscous 7.5 mL [facility] Ondansetron 2016-02-14 06:13:00 No Notes: (Same as: Zofran) MEDICATION WASTE Product Size: 4 mg Product Wasted: ___ mg [facility] Morphine 2016-02-14 06:13:00 No Not es: (Same as:MORPhine Sulfate) [facility] Sodium Chloride 0.154 MEQ/ML Injectable Solution 2016-02-14 06:1 3:00 No 1,000 mL, 2,000 ml/hr, Infus e Over: 30 minutes, Route: IV, 1,000, Drug form: INJ, ONCE, Priority: STAT, Dosing Weight 90.909 kg, Start date: 02/14/16 1:13:00 CDT, Duration: 1 doses or times, Stop date: 02/14/16 1:13:00 CDT [facility] Saline Flush 0.9% 2016-02-14 06:13:00 No [...] TOP, TID, # 22 gm, 0 Refill(s) [facility] Mupirocin 0.02 MG/MG Topical Ointment [Bactroban] 2014-05-10 02:25:00 No 1 appl, Route: TOP, ONCE, Drug form: OINT, Priority: Stat, Start date: 05/09/14 20:25:00, Stop date: 05/09/14 20:25:00 [facility] Ketorolac 2014-05-10 00:58:00 No 4 days [facility] Saline Flush 0.9% 2014-05-10 00:58:00 No Notes: Same as: BD Posiflush Sterile [facility] Acetaminophen 325 MG / Hydrocodone Bitartrate 5 MG Oral Tabl et [[place] 5/325] 2014-05-10 00:58:00 No Notes: (Same as: [place] 325/5) Do not exceed 4gm/day of acetaminophen. [facility] Diphenhydramine Hydrochloride 25 MG Oral Capsule [Benadryl] 2014-04-19 17:15:00 Yes 25 mg = 1 cap, PO, Q6H, Itching, # 30 cap, 0 Refill(s) [facility] tramadol hydrochloride 50 MG Oral Tablet 2014-04-19 17:15:00 Yes 50 mg = 1 tab, PO, Q6H, Pain, # 40 tab, 0 Refill(s) [facility] Sulfamethoxazole 800 MG / Trimethoprim 160 MG Oral Tablet [B actrim] 2014-04-19 17:14:00 Yes 1 tab, PO, BID, # 20 tab, 0 Refill(s) [facility] Cephalexin 500 MG Oral Capsule [Keflex] 2014-04-19 17:13:00 Yes 500 mg = 1 cap, PO, QID, # 40 cap, 0 Refill(s) [facility] Acetaminophen 325 MG / Hydrocodone Bitartrate 5 MG Oral Tabl et [[place] 5/325] 2014-02-14 20:05:00 No 1 tab, Route: PO, Drug Form: TAB, Dosing Weight 90.909, kg, ONCE, STAT, Start date: 02/14/14 15:05:00, Stop date: 02/14/14 15:05:00 [facility] [place] Aspirin / Calcium Carbonate 2014-02-14 19:21:00 No Notes: Take with food. [facility] Nitroglycerin 2014-02-14 19:21:00 No Notes: (Same as:Nitroquick, Nitrostat) "Do Not Crush" Sublingual tablet [facility] Saline Flush 0.9% 2014-02-14 19:21:00 No Notes: (Same as: BD Posiflush) [facility] Alprazolam Alprazolam Yes .5 Daily as needed fo r Anxiety [facility] Calcium Acetate Calcium Acetate Yes 2 Three Times Daily With Meals [facility] Calcium Carbonate Calcium Carbonate Yes 12 50 Three Times Daily With Meals [facility] Carvedilol Carvedilol Yes 25 Twice Daily With M eals [facility] Clopidogrel Bisulfate (Clopidogrel) 75 Mg TABLET Clopi dogrel Bisulfate (Clopidogrel) 75 Mg TABLET Yes 75 Daily [facility] Famotidine Famotidine Yes 20 Bedtime [facility] Lactulose Lactulose Yes 15 Three Times A Day [facility] Polyethylene Glycol 3350 Polyethylene Glycol 3350 Yes 17 Twice A Day as needed for Constipation [facility] Rifaximin (Xifaxan) 550 Mg TABLET Rifaximin (Xifaxan) 550 Mg TABLET Yes 550 Twice A Day [facility] Risperidone Risperidone Yes .5 Twice A Day [facility] Tramadol Hcl (Ultram) 50 Mg TABLET Tramadol Hcl (Ultram) 50 Mg TABLET Yes 100 Every 6 Hours as needed for Moderate Pain (4-6) [facility] Hydralazine Hcl Hydralazine Hcl 2020-02-01 00:00:00 No 10 Every 8 Hours [facility] Nifedipine (Nifedipine Er) 60 Mg TAB.ER.24 Nifedipine (Nifedipine Er) 60 Mg TAB.ER.24 2020-02-01 00:00:00 No 60 Daily [facility] Prednisone Prednisone 2020-02-01 00:00:00 No 20 Twi ce A Day [facility] Vital Signs Vital Name Observation Time Observation Value Comments Source Body Temperature 2020-02-01 11:09:00 97.7 [degF] [facility] BMI (Body Mass Index) 2020-02-01 09:54:00 28.7 kg/m2 [facility] Weight 2020-01-24 15:03:00 200 [lb_av] [facility] Systolic blood pressure 2019-11-24 17:50:00 117 mm[Hg] [facility] [facility] Diastolic blood pressure 2019-11-24 17:50:00 56 mm[Hg] [facility] [facility] Heart rate 2019-11-24 17:50:00 [facility] 2019-11-24 17:45:00 35.78 [facility] [place] [facility] Respiratory rate 2019-11-24 11:49:02 18 /min [place] [facility] Oxygen saturation in Arterial blood by Pulse oximetry 11-23 11:49:02 100 /min [facility] [facility] Body weight 2019-11-23 03:33:00 86.8 kg [facility] BMI 2019-11-23 03:33:00 27.46 kg/m2 [facility] Body height 2019-11-22 18:30:00 177.8 cm [facility] Heart Rate 2017-02-19 04:25:00 [facility] Respitory Rate 2017-02-19 04:25:00 [facility] Systolic (mm Hg) 2017-02-19 04:25:00 [facility] Diastolic (mm Hg) 2017-02-19 04:25:00 [facility] Respitory Rate 2017-02-19 03:42:00 [facility] [place] Heart Rate 2017-02-19 03:42:00 [facility] Systolic (mm Hg) 2017-02-19 03:42:00 [facility]anjan [facility] [place] Diastolic (mm Hg) 2017-02-19 03:42:00 [facility] Systolic (mm Hg) 2017-02-19 02:43:00 [facility]jan [facility] [place] Diastolic (mm Hg) 2017-02-19 02:43:00 [facility] [place] Heart Rate 2017-02-19 02:43:00 [facility] Respitory Rate 2017-02-19 02:43:00 [facility] Height 2017-02-18 23:18:00 175.26 cm [facility] Weight 2017-02-18 23:18:00 [facility] Temperature Oral (F) 2017-02-18 23:18:00 97.9 F [facility] BMI Calculated 2017-02-18 23:18:00 [facility] [place] Heart Rate 2016-10-04 02:04:00 [facility] Respitory Rate 2016-10-04 02:04:00 [facility] Systolic (mm Hg) 2016-10-04 02:04:00 [facility]anjan [facility] Diastolic (mm Hg) 2016-10-04 02:04:00 [facility] Systolic (mm Hg) 2016-10-03 23:58:00 [facility]jan [facility] [place] Diastolic (mm Hg) 2016-10-03 23:58:00 [facility] Heart Rate 2016-10-03 23:58:00 [facility] Respitory Rate 2016-10-03 23:58:00 [facility] Weight 2016-10-03 21:39:00 [facility] BMI Calculated 2016-10-03 21:39:00 [facility] [place] Height 2016-10-03 21:39:00 175.26 cm [facility] Heart Rate 2016-10-03 21:39:00 [facility] [place] Respitory Rate 2016-10-03 21:39:00 [facility] Temperature Oral (F) 2016-10-03 21:39:00 98.6 F [facility] Systolic (mm Hg) 2016-10-03 21:39:00 [facility]anjan [facility] Diastolic (mm Hg) 2016-10-03 21:39:00 [facility] Systolic (mm Hg) 2016-09-27 02:00:00 [facility] [place] Diastolic (mm Hg) 2016-09-27 02:00:00 [facility] Heart Rate 2016-09-27 02:00:00 [facility] Respitory Rate 2016-09-27 02:00:00 [facility] [place] Temperature Oral (F) 2016-09-27 02:00:00 98.6 F [facility] Systolic (mm Hg) 2016-09-27 01:11:00 [facility]jan [facility] Diastolic (mm Hg) 2016-09-27 01:11:00 [facility] Heart Rate 2016-09-27 01:11:00 [facility] Respitory Rate 2016-09-27 00:00:00 [facility] [place] Systolic (mm Hg) 2016-09-27 00:00:00 [facility]anjan [facility] Diastolic (mm Hg) 2016-09-27 00:00:00 [facility] Temperature Oral (F) 2016-09-27 00:00:00 97.8 F [facility] Heart Rate 2016-09-27 00:00:00 [facility] Temperature Oral (F) 2016-09-26 21:52:00 97.6 F [facility] Respitory Rate 2016-09-26 21:52:00 [facility] Weight 2016-09-26 21:52:00 [facility] Respitory Rate 2016-08-20 14:30:00 [facility] Systolic (mm Hg) 2016-08-20 14:30:00 [facility] [place] Diastolic (mm Hg) 2016-08-20 14:30:00 [facility] Temperature Oral (F) 2016-08-20 14:30:00 98.3 F [facility] Heart Rate 2016-08-20 14:30:00 [facility] [place] Respitory Rate 2016-08-20 06:00:00 [facility] Systolic (mm Hg) 2016-08-20 06:00:00 [facility] Diastolic (mm Hg) 2016-08-20 06:00:00 [facility] Temperature Oral (F) 2016-08-20 06:00:00 98.3 F [facility] Heart Rate 2016-08-20 06:00:00 [facility] Systolic (mm Hg) 2016-08-20 02:00:00 [facility] [place] Diastolic (mm Hg) 2016-08-20 02:00:00 [facility] Respitory Rate 2016-08-20 02:00:00 [facility] [place] Heart Rate 2016-08-20 02:00:00 [facility] Temperature Oral (F) 2016-08-20 02:00:00 98.2 F [facility] BMI Calculated 2016-08-12 05:48:00 [facility] [place] Height 2016-08-12 05:48:00 175.26 cm [facility] Weight 2016-08-12 05:48:00 [facility] BMI Calculated 2016-08-12 02:00:00 [facility] Weight 2016-08-12 02:00:00 [facility] Height 2016-08-12 02:00:00 175.26 cm [facility] Systolic (mm Hg) 2016-06-27 07:23:00 [facility]anjan [facility] Diastolic (mm Hg) 2016-06-27 07:23:00 [facility] Heart Rate 2016-06-27 07:23:00 [facility] Respitory Rate 2016-06-27 07:23:00 [facility] Respitory Rate 2016-06-27 06:38:00 [facility] [place] Heart Rate 2016-06-27 06:38:00 [facility] Systolic (mm Hg) 2016-06-27 06:38:00 [facility]anjan [facility] Diastolic (mm Hg) 2016-06-27 06:38:00 [facility] Weight 2016-06-27 03:35:00 [facility] BMI Calculated 2016-06-27 03:35:00 [facility] [place] Height 2016-06-27 03:35:00 177.8 cm [facility] Respitory Rate 2016-06-27 03:35:00 [facility] Temperature Oral (F) 2016-06-27 03:35:00 98.1 F [facility] Systolic (mm Hg) 2016-06-27 03:35:00 N[facility]anjan [facility] Diastolic (mm Hg) 2016-06-27 03:35:00 [facility] Heart Rate 2016-06-27 03:35:00 [facility] Heart Rate 2016-06-18 02:00:00 [facility] [place] Respitory Rate 2016-06-18 02:00:00 [facility] [place] Systolic (mm Hg) 2016-06-18 02:00:00 [facility]anjan [facility] [place] Diastolic (mm Hg) 2016-06-18 02:00:00 [facility] Systolic (mm Hg) 2016-06-17 18:00:00 [facility]jan [facility] Diastolic (mm Hg) 2016-06-17 18:00:00 [facility] [place] Heart Rate 2016-06-17 18:00:00 [facility] [place] Respitory Rate 2016-06-17 18:00:00 [facility] Systolic (mm Hg) 2016-06-17 14:00:00 [facility] Diastolic (mm Hg) 2016-06-17 14:00:00 [facility] Heart Rate 2016-06-17 14:00:00 [facility] [place] Respitory Rate 2016-06-17 14:00:00 [facility] Temperature Oral (F) 2016-06-17 10:00:00 97.6 F [facility] Temperature Oral (F) 2016-06-17 02:00:00 98.2 F [facility] Temperature Oral (F) 2016-06-16 22:00:00 97.6 F [facility] Weight 2016-06-15 19:56:00 [facility] [place] Height 2016-05-27 22:05:00 175.26 cm [facility] Weight 2016-05-27 22:05:00 [facility] BMI Calculated 2016-05-27 22:05:00 [facility] [place] Respitory Rate 2016-05-27 18:02:00 [facility] Heart Rate 2016-05-27 18:02:00 [facility] Temperature Oral (F) 2016-05-27 18:02:00 97.9 F [facility] Systolic (mm Hg) 2016-05-27 18:02:00 [facility]anjan [facility] [place] Diastolic (mm Hg) 2016-05-27 18:02:00 [facility] Heart Rate 2016-05-27 14:05:00 [facility] Temperature Oral (F) 2016-05-27 14:05:00 98.2 F [facility] Respitory Rate 2016-05-27 14:05:00 [facility] [place] Systolic (mm Hg) 2016-05-27 14:05:00 [facility]anjan [facility] Diastolic (mm Hg) 2016-05-27 14:05:00 [facility] [place] Systolic (mm Hg) 2016-05-27 06:00:00 [facility] [place] Diastolic (mm Hg) 2016-05-27 06:00:00 [facility] [place] Heart Rate 2016-05-27 06:00:00 [facility] Temperature Oral (F) 2016-05-27 06:00:00 98.5 F [facility] Respitory Rate 2016-05-26 22:39:00 [facility] [place] Weight 2016-05-25 13:00:00 [facility] [place] Weight 2016-05-19 05:25:00 [facility] BMI Calculated 2016-05-19 05:25:00 [facility] Height 2016-05-19 05:25:00 172.72 cm [facility] Height 2016-05-19 02:07:00 187.96 cm [facility] BMI Calculated 2016-05-19 02:07:00 [facility] [place] Weight 2016-05-19 02:07:00 [facility] Systolic (mm Hg) 2016-04-28 13:00:00 [facility]jan [facility] Diastolic (mm Hg) 2016-04-28 13:00:00 [facility] [place] Respitory Rate 2016-04-28 13:00:00 [facility] [...] Diastolic (mm Hg) 2016-04-28 01:00:00 [facility] [place] Heart Rate 2016-04-28 01:00:00 [facility] Respitory Rate 2016-04-28 01:00:00 [facility] [place] Weight 2016-04-27 02:02:00 [facility] BMI Calculated 2016-04-27 02:02:00 [facility] Height 2016-04-27 02:02:00 175.26 cm [facility] Weight 2016-04-26 21:19:00 [facility] Heart Rate 2016-04-20 13:12:00 [facility] Systolic (mm Hg) 2016-04-20 13:12:00 [facility] Diastolic (mm Hg) 2016-04-20 13:12:00 [facility] [place] Respitory Rate 2016-04-20 13:12:00 [facility] [place] Temperature Oral (F) 2016-04-20 13:12:00 97.7 F [facility] Systolic (mm Hg) 2016-04-20 11:27:00 [facility]jan [facility] Diastolic (mm Hg) 2016-04-20 11:27:00 [facility] Heart Rate 2016-04-20 11:27:00 [facility] Heart Rate 2016-04-20 05:17:00 [facility] [place] Respitory Rate 2016-04-20 05:17:00 [facility] Systolic (mm Hg) 2016-04-20 05:17:00 [facility] [place] Diastolic (mm Hg) 2016-04-20 05:17:00 [facility] [place] Temperature Oral (F) 2016-04-20 05:17:00 98.1 F [facility] Temperature Oral (F) 2016-04-20 01:25:00 97.8 F [facility] Respitory Rate 2016-04-20 01:25:00 [facility] [place] Weight 2016-04-17 07:00:00 [facility] [place] Weight 2016-04-16 09:00:00 [facility] BMI Calculated 2016-04-16 09:00:00 [facility] [place] Height 2016-04-16 09:00:00 175.26 cm [facility] Temperature Oral (F) 2016-03-13 01:15:00 98.6 F [facility] Heart Rate 2016-03-13 01:15:00 [facility] Systolic (mm Hg) 2016-03-13 01:15:00 [facility]anjan [facility] Diastolic (mm Hg) 2016-03-13 01:15:00 [facility] Respitory Rate 2016-03-13 01:15:00 [facility] Systolic (mm Hg) 2016-03-12 19:22:00 [facility]anjan [facility] [place] Diastolic (mm Hg) 2016-03-12 19:22:00 [facility] [place] Weight 2016-03-12 19:22:00 [facility] [place] Temperature Oral (F) 2016-03-12 19:22:00 97.6 F [facility] Heart Rate 2016-03-12 19:22:00 [facility] BMI Calculated 2016-03-12 19:22:00 [facility] Height 2016-03-12 19:22:00 175.26 cm [facility] Respitory Rate 2016-03-12 19:22:00 [facility] [place] Systolic (mm Hg) 2016-03-07 13:00:00 [facility]jan [facility] Diastolic (mm Hg) 2016-03-07 13:00:00 [facility] [place] Respitory Rate 2016-03-07 13:00:00 [facility] [place] Heart Rate 2016-03-07 13:00:00 [facility] Temperature Oral (F) 2016-03-07 13:00:00 98.5 F [facility] Heart Rate 2016-03-07 09:00:00 [facility] Temperature Oral (F) 2016-03-07 09:00:00 98.1 F [facility] Respitory Rate 2016-03-07 09:00:00 [facility] [place] Systolic (mm Hg) 2016-03-07 09:00:00 [facility] [place] Diastolic (mm Hg) 2016-03-07 09:00:00 [facility] [place] Systolic (mm Hg) 2016-03-07 05:00:00 [facility] Diastolic (mm Hg) 2016-03-07 05:00:00 [facility] [place] Respitory Rate 2016-03-07 05:00:00 [facility] Heart Rate 2016-03-07 05:00:00 [facility] Temperature Oral (F) 2016-03-07 05:00:00 98.1 F [facility] BMI Calculated 2016-02-24 23:46:00 [facility] [place] Weight 2016-02-24 23:46:00 [facility] Height 2016-02-24 23:46:00 170.18 cm [facility] Heart Rate 2016-02-20 16:44:00 [facility] Temperature Oral (F) 2016-02-20 16:44:00 98.4 F [facility] Systolic (mm Hg) 2016-02-20 16:44:00 [facility]jan [facility] Diastolic (mm Hg) 2016-02-20 16:44:00 [facility] [place] Respitory Rate 2016-02-20 16:44:00 [facility] [place] Systolic (mm Hg) 2016-02-20 11:27:00 [facility] [place] Diastolic (mm Hg) 2016-02-20 11:27:00 [facility] [place] Heart Rate 2016-02-20 11:27:00 [facility] Respitory Rate 2016-02-20 11:27:00 [facility] [place] Temperature Oral (F) 2016-02-20 11:27:00 98.2 F [facility] Heart Rate 2016-02-20 09:49:00 [facility] [place] Temperature Oral (F) 2016-02-20 09:49:00 98.5 F [facility] Systolic (mm Hg) 2016-02-20 09:49:00 [facility]jan [facility] Diastolic (mm Hg) 2016-02-20 09:49:00 [facility] [place] Respitory Rate 2016-02-20 09:49:00 [facility] Weight 2016-02-17 21:30:00 [facility] [place] Height 2016-02-17 13:17:00 175.26 cm [facility] BMI Calculated 2016-02-17 13:17:00 [facility] Weight 2016-02-17 13:17:00 [facility] Weight 2016-02-17 06:30:00 [facility] Systolic (mm Hg) 2016-02-14 07:30:00 [facility]jan [facility] Diastolic (mm Hg) 2016-02-14 07:30:00 [facility] [place] Weight 2016-02-14 04:21:00 [facility] BMI Calculated 2016-02-14 04:21:00 [facility] Respitory Rate 2016-02-14 04:21:00 [facility] [place] Temperature Oral (F) 2016-02-14 04:21:00 98.3 F [facility] Heart Rate 2016-02-14 04:21:00 [facility] Systolic (mm Hg) 2016-02-14 04:21:00 [facility]anjan [facility] [place] Diastolic (mm Hg) 2016-02-14 04:21:00 [facility] [place] Height 2016-02-14 04:21:00 175.26 cm [facility] Weight 2014-05-28 09:44:00 [facility] BMI Calculated 2014-05-28 09:44:00 [facility] Height 2014-05-28 09:44:00 175.26 cm [facility] Temperature Oral (F) 2014-05-28 09:44:00 97.0 F [facility] Diastolic (mm Hg) 2014-05-28 09:44:00 [facility] [place] Systolic (mm Hg) 2014-05-28 09:44:00 [facility]anjan [facility] [place] Respitory Rate 2014-05-28 09:44:00 [facility] Heart Rate 2014-05-28 09:44:00 [facility] Temperature Oral (F) 2014-05-10 02:54:00 98.0 F [facility] Systolic (mm Hg) 2014-05-10 02:54:00 [facility]anjan [facility] [place] Heart Rate 2014-05-10 02:54:00 [facility] Respitory Rate 2014-05-10 02:54:00 [facility] Diastolic (mm Hg) 2014-05-10 02:54:00 [facility] [place] Height 2014-05-10 00:21:00 175.26 cm [facility] BMI Calculated 2014-05-10 00:21:00 [facility] [place] Weight 2014-05-10 00:21:00 [facility] Diastolic (mm Hg) 2014-05-10 00:21:00 [facility] Systolic (mm Hg) 2014-05-10 00:21:00 [facility] [place] Temperature Oral (F) 2014-05-10 00:21:00 99.0 F [facility] Heart Rate 2014-05-10 00:21:00 [facility] Respitory Rate 2014-05-10 00:21:00 [facility] Height 2014-04-19 16:36:00 175.26 cm [facility] BMI Calculated 2014-04-19 16:36:00 [facility] Weight 2014-04-19 16:36:00 [facility] Temperature Oral (F) 2014-04-19 16:36:00 98.5 F [facility] Respitory Rate 2014-04-19 16:36:00 [facility] Diastolic (mm Hg) 2014-04-19 16:36:00 [facility] Heart Rate 2014-04-19 16:36:00 [facility] Systolic (mm Hg) 2014-04-19 16:36:00 [facility]anjan [facility] Respitory Rate 2014-02-14 20:44:00 [facility] [place] Systolic (mm Hg) 2014-02-14 20:44:00 [facility]anjan [facility] Diastolic (mm Hg) 2014-02-14 20:44:00 [facility] Heart Rate 2014-02-14 20:44:00 [facility] Respitory Rate 2014-02-14 20:16:00 [facility] Heart Rate 2014-02-14 20:16:00 [facility] [place] Systolic (mm Hg) 2014-02-14 20:16:00 Niranjan rial [place] Diastolic (mm Hg) 2014-02-14 20:16:00 Mem orial [place] Respitory Rate 2014-02-14 19:01:00 Memori [facility] Heart Rate 2014-02-14 19:01:00 [facility] Diastolic (mm Hg) 2014-02-14 19:01:00 Mem orial [facility] Systolic (mm Hg) 2014-02-14 19:01:00 Niranjan rial [facility] BMI Calculated 2014-02-14 19:01:00 [facility] Weight 2014-02-14 19:01:00 [facility] Temperature Oral (F) 2014-02-14 19:01:00 98.3 F [facility] Height 2014-02-14 19:01:00 161.4 cm [facility] Procedures Procedure Date / Time Performed Performing Clinician [facility] e Computed tomography of abdomen and pelvis with contrast 00:00:00 [facility] Ultrasound guidance for vascular access 2020-01-28 00:00:00 [facility] Ultrasound, renal 2020-01-25 00:00:00 [facility] Computed tomography of brain without radiopaque contrast 2020-01 00:00:00 [facility] AMMONIA LEVEL 2019-11-24 04:35:00 Shelly Koenig ethodist BASIC METABOLIC PANEL 2019-11-24 04:35:00 Jose Flor [facility] MAGNESIUM LEVEL 2019-11-24 04:35:00 Jose Florto thelma [facility] PHOSPHORUS LEVEL 2019-11-24 04:35:00 Jose Flor [facility] HC COMPLETE BLD COUNT W/AUTO DIFF 2019-11-24 04:35:00 Coleen Flor ESTIMATED GFR 2019-11-24 04:35:00 Jose Flor [facility] HEMODIALYSIS 2019-11-24 00:06:39 Jose Flor [facility] POC GLUCOSE 2019-11-23 11:30:00 Jose Flor [facility] POC GLUCOSE 2019-11-23 07:34:00 Jose Flor [facility] BASIC METABOLIC PANEL 2019-11-23 03:05:00 Bibiana Still [facility] MAGNESIUM LEVEL 2019-11-23 03:05:00 Bibiana Still ethodist PHOSPHORUS LEVEL 2019-11-23 03:05:00 Bibiana Still HC COMPLETE BLD COUNT W/AUTO DIFF 2019-11-23 03:05:00 Yvon Still IONIZED CALCIUM 2019-11-23 03:05:00 Colin Wangist ESTIMATED GFR 2019-11-23 03:05:00 Bibiana Still ethodist HEPATITIS B SURFACE ANTIGEN 2019-11-23 00:05:00 Bibiana Still [facility] BLOOD CULTURE, AEROBIC & ANAEROBIC 2019-11-22 18:43:00 Pankaj Still [facility] AMMONIA LEVEL 2019-11-22 18:43:00 Thomas Ramos on [facility] NC CRITICAL CARE, E/M 30-74 MINUTES 2019-11-22 17:52:29 Thomas Ramos [facility] ECG ED PRELIMINARY INTERPRETATION 2019-11-22 17:52:29 Heather Ramos ECG 12-LEAD 2019-11-22 17:46:58 Thomas Ramos on [facility] ARTERIAL BLOOD GAS 2019-11-22 17:18:00 Thomas Ramos uston [facility] HEPATITIS B SURFACE AB, QUANTITATIVE 2019-11-22 17:00:00 Bibiana Still [facility] BLOOD CULTURE, AEROBIC & ANAEROBIC 2019-11-22 15:57:00 Pankaj Still [facility] VENOUS BLOOD GAS 2019-11-22 15:57:00 Thomas Ramos [facility] HEMODIALYSIS 2019-11-22 15:42:54 StillBibiana squires ethodist HC COMPLETE BLD COUNT W/AUTO DIFF 2019-11-22 15:10:00 Heather Ramos PROTHROMBIN TIME WITH INR 2019-11-22 15:10:00 Thomas Ramos [facility] PARTIAL THROMBOPLASTIN TIME (PTT) 2019-11-22 15:10:00 Heather Ramos TYPE AND SCREEN 2019-11-22 15:10:00 Thomas Ramos on [facility] COMPREHENSIVE METABOLIC PANEL 2019-11-22 15:10:00 Monica Ramos [facility] PHOSPHORUS LEVEL 2019-11-22 15:10:00 Thomas Ramos [facility] MAGNESIUM LEVEL 2019-11-22 15:10:00 Thomas Ramos on [facility] CREATINE KINASE, TOTAL (CPK) 2019-11-22 15:10:00 Thomas Ramos ESTIMATED GFR 2019-11-22 15:10:[address] [facility] [address] HEAD WO CONTRAST 2019-11-22 14:35:20 Thomas Ramosmackenzie [facility] XR CHEST 1 VW PORTABLE 2019-11-22 14:00:00 Thomas Ramos Hunter [facility] POC GLUCOSE 2019-11-22 13:37:00 Thomas Ramos on [facility] ACL - Repair of anterior cruciate ligament 2003-07-05 00:00:00 [facility] Planned Activity Planned Date Details Comments Source Future Scheduled Test 2020-02-03 00:00:00 INFLUENZA VACCINE [code = INFLUENZA VACCINE] [facility] Future Scheduled Test 2013 00:00:00 COLONOSCOPY SCREEN ING [code = COLONOSCOPY SCREENING] [facility] Future Scheduled Test 2013 00:00:00 SHINGLES VACCINES (#1) [code = SHINGLES VACCINES (#1)] [facility] Instructions Advance Directives [facility] Instructions Aspiration [facility] Instructions Cognitive Dysfunction [facility] Instructions Pneumonia - Bacterial [facility] Instructions Pneumonia - Viral [facility] Encounters Start Date/Time End Date/Time Encounter Type Admission Type [facility] Care Department Encounter ID Source 2020-01-24 18:33:00 2020-02-01 11:51:00 Discharged Inpatient 1 THELMA MCDONALD [facility] [id number] [facility] 2019-11-22 00:00:00 2019-11-24 00:00:00 Inpatient RAVEN FLOR [facility] 012 [id number] [place] [facility] 2017-02-18 18:16:00 2017-02-18 23:27:00 Outpatient Jesús Arizmendi [facility] [id number] 2016-10-03 16:31:00 2016-10-03 22:07:00 Outpatient Jean Byrd [facility] [id number] 2016-09-26 16:45:00 2016-09-26 21:17:00 Outpatient Buster Arizmendi [facility] [id number] 2016-08-11 19:54:00 2016-08-20 13:40:00 Outpatient Marvin Solorio [facility] [id number] 2016-06-26 21:24:00 2016-06-27 01:50:00 Outpatient Lena Donaldson [facility] [id number] 2016-05-27 15:43:00 2016-06-17 18:00:00 Outpatient Jude Harvey Damaris [facility] [id number] 2016-05-18 19:58:00 2016-05-27 14:41:00 Outpatient Se misty Austini [facility] [id number] 2016-04-26 15:52:00 2016-04-28 12:56:00 Outpatient Brooks Garcia [facility] [id number] 2016-04-16 04:00:00 2016-04-20 13:50:00 Outpatient Joy Zapata [facility] [id number] 2016-03-12 14:18:00 2016-03-12 20:18:00 Outpatient Olman Trevor erazo Mendy [facility] [id number] 2016-02-24 18:39:00 2016-03-07 11:15:00 Outpatient Carla Evangelista [facility] [id number] 2016-02-17 01:25:00 2016-02-20 16:47:00 [facility] [id number] 2016-02-13 23:18:00 2016-02-14 04:21:00 Outpatient Rito S yana Mejía [facility] [id number] 2014-05-28 03:30:00 2014-05-28 04:05:00 Outpatient Carlo Mcrae i [facility] [place] [id number] 2014-05-09 18:00:00 2014-05-09 20:56:00 Outpatient Suzy Traylor [place] [id number] 2014-04-19 11:35:00 2014-04-19 12:34:00 Outpatient Robert Yoo [facility] [id number] 2014-02-14 13:59:00 2014-02-14 15:50:00 Outpatient Opal Diggs [facility] KAR [id number] Results Test Description Test Time Test Comments Results Result Comments Source Blood leukocytes automated count (number/volume) 2020-02-01 09:15:00 Test Item White Blood Count (test code = 6690-2) 21.55 4.8-10.8 [facility] count (number/volume)2020-02-01 09:15:00* Test Item Value Reference Range Interpretation Comments Red Blood Count (test code = 789-8) 3.36 4.3-5.7 [facility] hemoglobin measurement (moles/volume)2020-02-01 09:15:00* Test Item Value Reference Range Interpretation Comments Hemoglobin (test code = 96098-0) 9.3 14.0-18.0 [facility] CenterAutomated blood hematocrit (volume fraction)2020-02-01 09:15:00* Test Item Value Reference Range Interpretation Comments Hematocrit (test code = 4544-3) 30.3 38.2-49.6 [facility] CenterAutomated erythrocyte mean corpuscular rfazgm1469-03-75 09:15:00* Test Item Value Reference Range Interpretation Comments Mean Corpuscular Volume (test code = 787-2) 90.2 81-99 [facility] CenterAutomated erythrocyte mean corpuscular hemoglobin (mass per erythrocyte)2020-02-01 09:15:00* Test Item Value Reference Range Interpretation Comments Mean Corpuscular Hemoglobin (test code = 785-6) 27.7 28-32 [facility] CenterAutomated erythrocyte mean corpuscular hemoglobin concentration measurement (mass/volume)2020-02-01 09:15:00* Test Item Value Reference Range Interpretation Comments Mean Corpuscular Hemoglobin Concent (test code = 786-4) 30.7 31-35 [facility] CenterRDW PwgXt-Cbe7841-07-30 09:15:00* Test Item Value Reference Range Interpretation Comments Red Cell Distribution Width (test code = 35704-7) 15.4 11.7 -14.4 [facility] CenterAutomated blood platelet count (count/volume)2020-02-01 09:15:00* Test Item Value Reference Range Interpretation Comments Platelet Count (test code = 777-3) 893 140-360 [facility] CenterAutomated blood segmented neutrophil count as percentage of total znkixvatqv2138-84-76 09:15:00* Test Item Value Reference Range Interpretation Comments Neutrophils (%) (Auto) (test code = 92219-8) 70.6 38.7-80.0 [facility] CenterAutomated blood lymphocyte count as percentage ot total bvflndlvbx3133-53-24 09:15:00* Test Item Value Reference Range Interpretation Comments Lymphocytes (%) (Auto) (test code = 736-9) 18.2 18.0-39.1 [facility] CenterAutomated blood monocyte count as percentage of total liclvgozin5301-12-31 09:15:00* Test Item Value Reference Range Interpretation Comments Monocytes (%) (Auto) (test code = 5905-5) 8.6 4.4-11.3 [facility] CenterAutomated blood eosinophil count as percentage of total qhnjsvozoc4323-69-97 09:15:00* Test Item Value Reference Range Interpretation Comments Eosinophils (%) (Auto) (test code = 713-8) 0.4 0.0-6.0 [facility] CenterAutomated blood basophil count as percentage of total atcslycrbc1530-36-50 09:15:00* Test Item Value Reference Range Interpretation Comments Basophils (%) (Auto) (test code = 706-2) 0.4 0.0-1.0 [facility]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 (test code = 5902-2) 12.5 11.5- 14.5 sec INR (test code = 94512-7) 0.9 Th e International Normalized Ratio (INR) is a therapeutic monitoring tool for patients who are stable on oral anticoagulant therapy. An INR of 2.0-3.0 is suggested for deep vein thrombosis/pulmonary embolism. [place] MethodistCT Head Wo Fyljdlsk9795-03-82 14:40:06Hm Interface, Radiology Results 20/2020 2:43 PM [...] basal ga nglia.Overall, no interval changes since 2016[facility]-5XS0391BVVHxmsguh MethodistXR Chest 1 Vw Cdcuubtr7518-36-32 14:19:11 Interface, Radiology Results Incoming - 11/22/2019 2:22 PM CDTEXAMINATION: XR CHEST 1 VW PORTABLECLINICAL HISTORY: SOB missed dialysisCOMPARISON: January 30, 2016IMPRESSION:1. Tunneled dialysis catheter tip is in the SVC.2. Moderate bilateral infiltrates are likely congestive. There are likely trace bilateral pleural effusions as well.[facility]-8GN9117DAWMnxxkmm [place]- INJ W/FLUORO EVAL GHWZ1431-93-43 14:18:00 Patient Name: WERNER MAXWELL Unit No: [id number] EXAMS : CPT: [id number] INJ W/F LUORO EVAL CVAD 36237 Ultrasound and fluo roscopic guided placement of [...] l of 35 minutes of dedicated physician jsoy-ji-zbhn sedation time. Indepen dent patient monitoring was [...] Phys: PELLE - Peleg,Leeor B DO [address] : 1965 Age: 54 Sex: M [place] [address] Loc: N.ERS Exam Date: 08/01/2019 Status: REG ER PH: FAX: PAGE 1 Signed Report (CONTINUED) Pat ient Name: WERNER MAXWELL Unit No: [id number] EXAMS: CPT: [id number] INJ W/FLUO RO EVAL CVAD 78200 <Continued> at 1418 Reported and signed by: CHERELLE MART MD CC: Cahu Lopez MD Technologist: JEOVANNY Layne Time: DAP (Gy m2): Air Kerma (mGy): Trscr Dt/Tm: 08/01/2019 (1418) by:Yvan Orig Print D/T: S: 08/01/2019 (1421) BATCH NO: N/A Name: WERNER MAXWELL [facility] Phys: PELLE - EdinsonLeeor B DO [address] : 1965 Age: 54 Sex: M [place] [address] Loc: N.ERS Exam Date: 08/01/2019 Status: REG ER PH: FAX: PAGE 2 Signed Report CBC W/AUTO RAGB6582-17-52 12:23:00* Test Item Value Reference Range Interpretation [...] = MPV) 10.0 fL 8.6-12.6 N WBC DOFLSNQFYAYX7314-47-22 12:23:00* Test Item Value Reference Range Interpretation [...] code = PLTMORPH) NORMAL NORMAL COMPREHENSIVE METABOLIC TWCRF2943-81-93 12:02:00* Test Item Value Reference Range Interpretation [...] ALKP) 47 U/L 42-121 N COMPREHENSIVE METABOLIC BYERA3036-50-04 11:52:00* Test Item Value Reference Range Interpretation [...] code = ALKP) U/L 42-121 CBC W/AUTO EYZK8992-88-18 11:31:00* Test Item Value Reference Range Interpretation [...] = MPV) 10.0 fL 8.6-12.6 N WBC VZQWUYIUESZE8368-60-60 11:31:00* Test Item Value Reference Range Interpretation Comments TOTAL CELLS COUNTED (test code = TCC) #CELLS RBC MORPHOLOGY COMMENT (test code = MOC) NORMAL PLATELET MORPHOLOGY (test code = PLTMORPH) NORMAL CBC W/AUTO [id number] 11:31:00* Test Item Value Reference Range Interpretation [...] = MPV) 10.0 fL 8.6-12.6 N WBC FAVFSDSRIXLO4185-50-47 11:31:00* Test Item Value Reference Range Interpretation Comments TOTAL CELLS COUNTED (test code = TCC) #CELLS RBC MORPHOLOGY COMMENT (test code = MOC) NORMAL PLATELET MORPHOLOGY (test code = PLTMORPH) NORMAL - XR CHEST 1 [id number] 10:58:00Patient Name: WERNER MAXWELL Unit No: [id number] EXAMS: CPT: [id number] XR CHEST 1 V 03068 CHEST RADIOGRAPH - 1 view CLINICAL HISTORY: [...] (1102) BATCH NO: N/A Name: WERNER MAXWELL [facility] Phys: PELLE - Peleg,Leeor B DO [address] : 1965 Age: 54 Sex: [place] [address] [facility] [id number] Loc: N.ERS Exam Date: 08/01/2019 Status: REG ER PH: FAX: PAGE 1 Signed Report [id number] 04:51:00* Test Item Value Reference Range Interpretation Comments GLUBED (test code = GLUBED) 98 MG/DL 70-105 N CSIVHZ7208-00-18 20:54:00* Test Item Value Reference Range Interpretation Comments GLUBED (test code = GLUBED) 89 MG/DL 70-105 N [id number] 16:25:00* Test Item Value Reference Range Interpretation Comments GLUBED (test code = GLUBED) 100 MG/DL 70-105 N ICIPOZ9893-68-06 11:31:00* Test Item Value Reference Range Interpretation Comments GLUBED (test code = GLUBED) 96 MG/DL 70-105 N OIGVGA1101-99-05 05:57:00* Test Item Value Reference Range Interpretation Comments GLUBED (test code = GLUBED) 114 MG/DL 70-105 H CBC W/AUTO [id number] 00:55:00* Test Item Value Reference Range Interpretation [...] = MPV) 8.1 fl 6.4-10.5 N WBC QJDMZIYFDXQO7901-94-51 00:55:00* Test Item Value Reference Range Interpretation [...] (test code = PLTMORPH) NORMAL NORMAL PROTHROMBIN [id number] 00:46:00* Test Item Value Reference Range Interpretation [...] - 4.5 recurrent systemic embolism. THROMBOPLASTIN TIME PKCUDHZ7625-41-37 00:46:00* Test Item Value Reference Range Interpretation Comments THROMBOPLASTIN TIME PARTIAL (test code = PTT) 24 SECONDS 25-37 L BASIC METABOLIC HGUEQ6367-27-20 00:43:00* Test Item Value Reference Range Interpretation [...] CA) 7.1 mg/dL 8.5-10.5 L LIVER FUNCTION FFUFA0761-60-94 00:43:00* Test Item Value Reference Range Interpretation [...] code = ALKP) 50 U/L 42-121 N EJQFSVHT-R3752-30-21 00:41:00* Test Item Value Reference Range Interpretation Comments TROPONIN-I (test code = TROPI) <0.020 ng/mL 0.000-0.034 N BASIC METABOLIC [id number] 00:37:00* Test Item Value Reference Range Interpretation [...] CA) 7.1 mg/dL 8.5-10.5 L LIVER FUNCTION [id number] 00:37:00* Test Item Value Reference Range Interpretation [...] code = ALKP) U/L 42-121 CBC W/AUTO [id number] 00:27:00* Test Item Value Reference Range Interpretation [...] = MPV) 8.1 fl 6.4-10.5 N WBC FVFCBWQFOONU2649-65-28 00:27:00* Test Item Value Reference Range Interpretation Comments TOTAL CELLS COUNTED (test code = TCC) #CELLS RBC MORPHOLOGY COMMENT (test code = MOC) NORMAL PLATELET MORPHOLOGY (test code = PLTMORPH) NORMAL CBC W/AUTO [id number] 00:27:00* Test Item Value Reference Range Interpretation [...] = MPV) 8.1 fl 6.4-10.5 N WBC RXHNUJDKBRMU5237-78-25 00:27:00* Test Item Value Reference Range Interpretation Comments TOTAL CELLS COUNTED (test code = TCC) #CELLS RBC MORPHOLOGY COMMENT (test code = MOC) NORMAL PLATELET MORPHOLOGY (test code = PLTMORPH) NORMAL - XR CHEST 1 [id number] 00:26:00Patient Name: WERNER MAXWELL Unit No: [id number] EXAMS: CPT: [id number] XR CHEST 1 V 65063 Portable chest, 03/25/2019. Clinical: Dialysis. Comment: The [...] (0029) BATCH NO: N/A Name: WERNER MAXWELL [facility] Phys: Miek Toscano DO [address] : 1965 Age: 53 Sex: [place] [address] Loc: N.ERS Exam Date: 03/24/2019 Status: PRE ER PH: FAX: PAGE 1 Signed Report [id number] 11:56:00* Test Item Value Reference Range Interpretation Comments GLUBED (test code = GLUBED) 74 MG/DL 70-105 N BASIC METABOLIC [id number] 10:17:00* Test Item Value Reference Range Interpretation [...] CA) 7.3 mg/dL 8.5-10.5 L CBC W/O [id number] 09:38:00* Test Item Value Reference Range Interpretation [...] 130-408 N - FLUORO GUID CTRL ACC [id number] 12:30:00Patient Name: WERNER MAXWELL Unit No: [id number] EXAMS: CPT: [id number] FLUORO GUID CTRL ACC DEV 79736 RIGHT IJ TUNNELED DIALYSIS CATHETER INSERTION HISTORY: [...] present. The physician spent 30 minutes of vomf-gr-tlas sedation time with the patient. The right [...] mGy CAK. 1 image. Name: WERNER MAXWELL [facility] Phys: Tommy Hoover MD [address] OB: 1965 Age: 53 Sex: M [place], [place] [address] Loc: N.0673 1 Exam Date: Status: ADM IN PH: FAX: PAGE 1 Signed Report (CONTINUED) Patient Name: WERNER MAXWELL Unit No: [id number] EXAMS: CPT: [id number] FLUORO GUID CTRL ACC DEV 22284 <Continued> at 1230 Reported and signed by: Sha Kathleen MD CC: Chau Lopez MD; Tommy Haider MD Technologist: LAILA Layne Time: DAP (Gy m2): Air Kerma (mGy): Trscr Dt/Tm: 03/21/2019 (1230) by:AlconJJZ1 Orig Print D/T: S: 03/21/2019 (1230) BATCH NO: N/A Name: WERNER MAXWELL [facility] Phys: Tommy Hoover MD [address] [facility] : 1965 Age: 53 Sex: M [place] [id number] Loc: N.0673 1 Exam Date: 03/17/2019 Status: ADM IN PH: FAX: PAGE 2 Signed Report AB HEPATITIS B SURFACE [id number] 05:09:00* Test Item Value Reference Range Interpretation Comments AB HEPATITIS B SURFACE QUANT (test code = HBSABQ) <3.1 mIU/mL Immu nity>9.9 A Status of Immunity Anti-HBs Level Inconsistent with Immunity 0.0 - 9.9Consistent with Immunity >9.9Performed At: [facility] [place] [address] [place], [place] [id number] Kyle L MD Ph:[phone] [id number] 12:29:00* Test Item Value Reference Range Interpretation Comments GLUBED (test code = GLUBED) 89 MG/DL 70-105 N BASIC METABOLIC [id number] 06:20:00* Test Item Value Reference Range Interpretation [...] CA) 7.2 mg/dL 8.5-10.5 L CBC W/AUTO [id number] 12:35:00* Test Item Value Reference Range Interpretation [...] = MPV) 8.0 fl 6.4-10.5 N WBC BPOEZHOAZRQX9960-97-05 12:35:00* Test Item Value Reference Range Interpretation [...] code = PLTMORPH) NORMAL NORMAL CBC W/AUTO [id number] 11:25:00* Test Item Value Reference Range Interpretation [...] = MPV) 8.0 fl 6.4-10.5 N WBC [id number] 11:25:00* Test Item Value Reference Range Interpretation Comments TOTAL CELLS COUNTED (test code = TCC) #CELLS RBC MORPHOLOGY COMMENT (test code = MOC) NORMAL PLATELET MORPHOLOGY (test code = PLTMORPH) NORMAL CBC W/AUTO [id number] 11:25:00* Test Item Value Reference Range Interpretation [...] = MPV) 8.0 fl 6.4-10.5 N WBC [id number] 11:25:00* Test Item Value Reference Range Interpretation Comments TOTAL CELLS COUNTED (test code = TCC) #CELLS RBC MORPHOLOGY COMMENT (test code = MOC) NORMAL PLATELET MORPHOLOGY (test code = PLTMORPH) NORMAL BASIC METABOLIC [id number] 10:30:00* Test Item Value Reference Range Interpretation [...] code = CA) 7.2 mg/dL 8.5-10.5 L QGJMNRUWRLQ0519-21-10 10:30:00* Test Item Value Reference Range Interpretation Comments PHOSPHOROUS (test code = PHOS) 5.4 mg/dl 2.5-4.6 H [id number] 10:30:00* Test Item Value Reference Range Interpretation Comments MAGNESIUM (test code = MAG) 1.7 mg/dl 1.8-2.5 L [id number] 20:13:00* Test Item Value Reference Range Interpretation Comments GLUBED (test code = GLUBED) 164 MG/DL 70-105 H CBC W/AUTO [id number] 12:14:00* Test Item Value Reference Range Interpretation [...] = MPV) 8.1 fl 6.4-10.5 N WBC [id number] 12:14:00* Test Item Value Reference Range Interpretation [...] code = PLTMORPH) NORMAL NORMAL BASIC METABOLIC [id number] 11:38:00* Test Item Value Reference Range Interpretation [...] code = CA) 7.1 mg/dL 8.5-10.5 L [id number] 11:38:00* Test Item Value Reference Range Interpretation Comments PHOSPHOROUS (test code = PHOS) 5.8 mg/dl 2.5-4.6 H [id number] 11:12:00* Test Item Value Reference Range Interpretation Comments GLUBED (test code = GLUBED) 109 MG/DL 70-105 H CBC W/AUTO [id number] 11:11:00* Test Item Value Reference Range Interpretation [...] = MPV) 8.1 fl 6.4-10.5 N WBC [id number] 11:11:00* Test Item Value Reference Range Interpretation Comments TOTAL CELLS COUNTED (test code = TCC) #CELLS RBC MORPHOLOGY COMMENT (test code = MOC) NORMAL PLATELET MORPHOLOGY (test code = PLTMORPH) NORMAL CBC W/AUTO [id number] 11:11:00* Test Item Value Reference Range Interpretation [...] = MPV) 8.1 fl 6.4-10.5 N WBC [id number] 11:11:00* Test Item Value Reference Range Interpretation Comments TOTAL CELLS COUNTED (test code = TCC) #CELLS RBC MORPHOLOGY COMMENT (test code = MOC) NORMAL PLATELET MORPHOLOGY (test code = PLTMORPH) NORMAL AB HEPATITIS B [id number] 19:46:00* Test Item Value Reference Range Interpretation Comments AB HEPATITIS B SURFACE (test code = HBSAB) NEGATIVE NEGATIVE AG HEPATITIS B [id number] 19:46:00* Test Item Value Reference Range Interpretation Comments AG HEPATITIS B SURFACE (test code = HBSAG) NEGATIVE NEGATIVE AB HEPATITIS B [id number] 19:46:00* Test Item Value Reference Range Interpretation Comments AB HEPATITIS B CORE (test code = HBCAB) NEGATIVE NEGATIVE PROTHROMBIN [id number] 07:19:00* Test Item Value Reference Range Interpretation [...] systemic embolism. RECOLLECT - HEMOLYZED. CBC W/AUTO [id number] 07:16:00* Test Item Value Reference Range Interpretation [...] = MPV) 8.4 fl 6.4-10.5 N WBC [id number] 07:16:00* Test Item Value Reference Range Interpretation [...] code = PLTMORPH) NORMAL NORMAL COMPREHENSIVE METABOLIC [id number] 05:55:00* Test Item Value Reference Range Interpretation [...] ALKP) 42 U/L 42-121 N CBC W/AUTO [id number] 05:48:00* Test Item Value Reference Range Interpretation [...] = MPV) 8.4 fl 6.4-10.5 N WBC [id number] 05:48:00* Test Item Value Reference Range Interpretation Comments TOTAL CELLS COUNTED (test code = TCC) #CELLS RBC MORPHOLOGY COMMENT (test code = MOC) NORMAL PLATELET MORPHOLOGY (test code = PLTMORPH) NORMAL CBC W/AUTO [id number] 05:48:00* Test Item Value Reference Range Interpretation [...] = MPV) 8.4 fl 6.4-10.5 N WBC [id number] 05:48:00* Test Item Value Reference Range Interpretation Comments TOTAL CELLS COUNTED (test code = TCC) #CELLS RBC MORPHOLOGY COMMENT (test code = MOC) NORMAL PLATELET MORPHOLOGY (test code = PLTMORPH) NORMAL CBC W/AUTO [id number] 09:58:00* Test Item Value Reference Range Interpretation [...] = MPV) 8.4 fl 6.4-10.5 N WBC [id number] 09:58:00* Test Item Value Reference Range Interpretation [...] code = PLTMORPH) NORMAL NORMAL BASIC METABOLIC [id number] 07:23:00* Test Item Value Reference Range Interpretation [...] code = CA) 7.4 mg/dL 8.5-10.5 L [id number] 07:23:00* Test Item Value Reference Range Interpretation Comments MAGNESIUM (test code = MAG) 1.6 mg/dl 1.8-2.5 L CBC W/AUTO [id number] 07:15:00* Test Item Value Reference Range Interpretation [...] = MPV) 8.4 fl 6.4-10.5 N WBC [id number] 07:15:00* Test Item Value Reference Range Interpretation Comments TOTAL CELLS COUNTED (test code = TCC) #CELLS RBC MORPHOLOGY COMMENT (test code = MOC) NORMAL PLATELET MORPHOLOGY (test code = PLTMORPH) NORMAL CBC W/AUTO [id number] 07:15:00* Test Item Value Reference Range Interpretation [...] = MPV) 8.4 fl 6.4-10.5 N WBC [id number] 07:15:00* Test Item Value Reference Range Interpretation Comments TOTAL CELLS COUNTED (test code = TCC) #CELLS RBC MORPHOLOGY COMMENT (test code = MOC) NORMAL PLATELET MORPHOLOGY (test code = PLTMORPH) NORMAL BASIC METABOLIC [id number] 09:43:00* Test Item Value Reference Range Interpretation [...] VERIFIEDby JOSE MANUEL, on 03/15/19, @ 0943. [id number] 09:43:00* Test Item Value Reference Range Interpretation Comments PHOSPHOROUS (test code = PHOS) 5.2 mg/dl 2.5-4.6 H - XR CHEST 1 [id number] 09:08:00Patient Name: WERNER MAXWELL Unit No: [id number] EXAMS: CPT: [id number] XR CHEST 1 V 56701 STUDY: - XR CHEST 1 V INDICATION: [...] (09) BATCH NO: N/A Name: WERNER MAXWELL [facility] Phys: Tommy Hoover MD [address] [facility] : 1965 Age: 53 Sex: M [place], [place] [address] Loc: N.0673 1 Exam Date: 03/15/2019 Status: ADM IN PH: FAX: PAGE 1 Signed Report BASIC METABOLIC [id number] 07:46:00* Test Item Value Reference Range Interpretation [...] AND VERIFIEDby NMaiaLABROME, on 03/14/19, @ 0654. [id number] 07:46:00* Test Item Value Reference Range Interpretation Comments PHOSPHOROUS (test code = PHOS) 5.1 mg/dl 2.5-4.6 H [id number] 07:46:00* Test Item Value Reference Range Interpretation Comments MAGNESIUM (test code = MAG) 1.7 mg/dl 1.8-2.5 L PARATHYROID [id number] 07:46:00* Test Item Value Reference Range Interpretation Comments PARATHYROID HORMONE (test code = PTH) 1062 pg/ml 12-88 H VITAMIN D 40-[id number] 07:46:00* Test Item Value Reference Range Interpretation Comments VITAMIN D 25-HYDROXY (test code = VITD25) 7 ng/ml 30-100 L Interpretive Data :Vit D 25 Hydroxy Vit D Status Vit OH Vit D Conc Range(ng/mL) Deficient < 20 Insufficient 20 - < 30 Sufficient 30 - 100 Upper Safety Limit > 100 BASIC METABOLIC [id number] 06:56:00* Test Item Value Reference Range Interpretation [...] AND VERIFIEDby NMaiaLAB.JEANETH, on 03/14/19, @ 0654. [id number] 06:56:00* Test Item Value Reference Range Interpretation Comments PHOSPHOROUS (test code = PHOS) 5.1 mg/dl 2.5-4.6 H [id number] 06:56:00* Test Item Value Reference Range Interpretation Comments MAGNESIUM (test code = MAG) 1.7 mg/dl 1.8-2.5 L PARATHYROID [id number] 06:56:00* Test Item Value Reference Range Interpretation Comments PARATHYROID HORMONE (test code = PTH) 1062 pg/ml 12-88 H VITAMIN D 20-[id number] 06:56:00* Test Item Value Reference Range Interpretation Comments VITAMIN D 25-HYDROXY (test code = VITD25) ng/ml 30-100 BASIC METABOLIC [id number] 06:54:00* Test Item Value Reference Range Interpretation [...] AND VERIFIEDby DELVIS, on 03/14/19, @ 0654. [id number] 06:54:00* Test Item Value Reference Range Interpretation Comments PHOSPHOROUS (test code = PHOS) 5.1 mg/dl 2.5-4.6 H [id number] 06:54:00* Test Item Value Reference Range Interpretation Comments MAGNESIUM (test code = MAG) 1.7 mg/dl 1.8-2.5 L PARATHYROID [id number] 06:54:00* Test Item Value Reference Range Interpretation Comments PARATHYROID HORMONE (test code = PTH) pg/ml 12-88 VITAMIN D 52-[id number] 06:54:00* Test Item Value Reference Range Interpretation Comments VITAMIN D 25-HYDROXY (test code = VITD25) ng/ml 30-100 CALCIUM [id number] 06:52:00* Test Item Value Reference Range Interpretation Comments CALCIUM IONIZED (test code = SHERIF) 1.04 mmol/L 1.13-1.32 L ARTERIAL BLOOD [id number] 16:38:00* Test Item Value Reference Range Interpretation [...] THB) 9.8 g/dL 13.0-17.0 L BASIC METABOLIC [id number] 12:32:00* Test Item Value Reference Range Interpretation [...] ALIE, on 03/12/19, @ 1232. BASIC METABOLIC [id number] 10:59:00* Test Item Value Reference Range Interpretation [...] 7.6 mg/dL 8.5-10.5 L EXTRA PURPLE TUBE [id number] 05:35:00* Test Item Value Reference Range Interpretation Comments GLUBED (test code = GLUBED) 106 MG/DL 70-105 H [id number] 21:05:00* Test Item Value Reference Range Interpretation Comments GLUBED (test code = GLUBED) 146 MG/DL 70-105 H [id number] 15:58:00* Test Item Value Reference Range Interpretation Comments GLUBED (test code = GLUBED) 107 MG/DL 70-105 H [id number] 12:41:00* Test Item Value Reference Range Interpretation Comments GLUBED (test code = GLUBED) 103 MG/DL 70-105 N BASIC METABOLIC [id number] 08:34:00* Test Item Value Reference Range Interpretation [...] PURPLE TUBE COLLECTED- CT ABD PELVIS W/O [id number] 22:29:00Patient Name: WERNER MAXWELL Unit No: [id number] EXAMS: CPT: [id number] CT ABD PELVIS W/O CONT [address]290 CT ABDOMEN AND PELVIS WITHOUT CONTRAST: CLINICAL [...] with ACR practice standards and adherence to community mental health worker's recommendations with automated exposure control. at 2229 Reported and signed by: Mark Lynch MD CC: Chau ramos MD; Daniel Lopez MD Technologist: Margaret Chatman CTDI: 25.59 DLP: 1485.18Trscr Dt/ Tm: 03/09/2019 (2223) by:[email or web address] Orig Print D/T: S: 0 03/09/2019 (6540) [facility] NO: N/A Name: WERNER MAXWELL [facility] Phys: Daniel Carmona MD [address] : 1965 Age: 53 Sex: [place] [address] Loc: N.0673 1 Exam D ate: 03/09/2019 Status: ADM IN PH: FAX: PAGE 1 Signed Report - US SCROTUM AND [id number] 22:12:00Patient Name: WERNER MAXWELL Unit No: [id number] EXAMS: CPT: [id number] [facility] SCROTUM AND [facility] [address] ULTRASOUND SCROTUM: CLINICAL HISTORY: Scrotal pain FINDINGS: [...] (221) BATCH NO: N/A Name: WERNER MAXWELL [facility] Phys: Daniel Carmona MD [address] [facility] : 1965 Age: 53 Sex: M [place], [place] [address] Loc: N.ERSD 1 Exam Date: 03/09/2019 Status: ADM IN PH: FAX: PAGE 1 Signed Report UA RFLX MICR CULT IF [id number] 20:49:00* Test Item Value Reference Range Interpretation [...] for culture: Sev. Sepsis-no other srcCBC W/AUTO [id number] 20:43:00* Test Item Value Reference Range Interpretation [...] = MPV) 8.4 fl 6.4-10.5 N WBC [id number] 20:43:00* Test Item Value Reference Range Interpretation [...] code = PLTMORPH) NORMAL NORMAL B-TYPE NATRIURETIC [id number] 20:37:00* Test Item Value Reference Range Interpretation Comments B-TYPE NATRIURETIC PEPTIDE (test code = BNP) 44 pg/ml 0-100 N BASIC METABOLIC [id number] 20:30:00* Test Item Value Reference Range Interpretation [...] CA) 7.9 mg/dL 8.5-10.5 L LIVER FUNCTION [id number] 20:30:00* Test Item Value Reference Range Interpretation [...] = ALKP) 55 U/L 42-121 N LACTIC [id number] 20:29:00* Test Item Value Reference Range Interpretation Comments LACTIC ACID (test code = LACT) 1.7 mmol/L 0.5-2.0 N [id number] 20:27:00* Test Item Value Reference Range Interpretation Comments TROPONIN-I (test code = TROPI) <0.020 ng/mL 0.000-0.034 N CBC W/AUTO [id number] 20:07:00* Test Item Value Reference Range Interpretation [...] = MPV) 8.4 fl 6.4-10.5 N WBC [id number] 20:07:00* Test Item Value Reference Range Interpretation Comments TOTAL CELLS COUNTED (test code = TCC) #CELLS RBC MORPHOLOGY COMMENT (test code = MOC) NORMAL PLATELET MORPHOLOGY (test code = PLTMORPH) NORMAL CBC W/AUTO [id number] 20:07:00* Test Item Value Reference Range Interpretation [...] = MPV) 8.4 fl 6.4-10.5 N WBC [id number] 20:07:00* Test Item Value Reference Range Interpretation Comments TOTAL CELLS COUNTED (test code = TCC) #CELLS RBC MORPHOLOGY COMMENT (test code = MOC) NORMAL PLATELET MORPHOLOGY (test code = PLTMORPH) NORMAL - XR CHEST 1 [id number] 19:55:00Patient Name: WERNER MAXWELL Unit No: [id number] EXAMS: CPT: [id number] XR CHEST 1 V 03460 CHEST 1 VIEW COMPARISON: February 06, 2019 [...] (1957) BATCH NO: N/A Name: WERNER MAXWELL [facility] Phys: Daniel Carmona MD [address] [facility] : 1965 Age: 53 Sex: [place] [address] Loc: N.ERS Exam Date: 03/09/2019 Status: REG ER PH: FAX: PAGE 1 Signed Report BASIC METABOLIC [id number] 06:52:00* Test Item Value Reference Range Interpretation [...] CA) 7.5 mg/dL 8.5-10.5 L CBC W/AUTO [id number] 06:29:00* Test Item Value Reference Range Interpretation [...] = BA#) 0.0 x10 3/uL 0.0-0.1 N [id number] 12:12:00* Test Item Value Reference Range Interpretation Comments GLUBED (test code = GLUBED) 98 MG/DL 70-105 N COMPREHENSIVE METABOLIC [id number] 10:07:00* Test Item Value Reference Range Interpretation [...] code = ALKP) 62 U/L 42-121 N [id number] 10:07:00* Test Item Value Reference Range Interpretation Comments PHOSPHOROUS (test code = PHOS) 4.6 mg/dl 2.5-4.6 N [id number] 10:07:00* Test Item Value Reference Range Interpretation Comments MAGNESIUM (test code = MAG) 1.5 mg/dl 1.8-2.5 L CBC W/AUTO [id number] 09:55:00* Test Item Value Reference Range Interpretation [...] 0.0 x10 3/uL 0.0-0.1 N BASIC METABOLIC [id number] 05:44:00* Test Item Value Reference Range Interpretation [...] code = CA) 7.4 mg/dL 8.5-10.5 L [id number] 05:44:00* Test Item Value Reference Range Interpretation Comments PHOSPHOROUS (test code = PHOS) 5.2 mg/dl 2.5-4.6 H CBC W/AUTO [id number] 05:20:00* Test Item Value Reference Range Interpretation [...] BA#) 0.0 x10 3/uL 0.0-0.1 N URINALYSIS [id number] 18:57:00* Test Item Value Reference Range Interpretation [...] MUCU) 1+ /LPF NONE SEEN BASIC METABOLIC [id number] 08:09:00* Test Item Value Reference Range Interpretation [...] code = CA) 7.7 mg/dL 8.5-10.5 L [id number] 08:09:00* Test Item Value Reference Range Interpretation Comments PHOSPHOROUS (test code = PHOS) 5.1 mg/dl 2.5-4.6 H CBC W/AUTO [id number] 07:28:00* Test Item Value Reference Range Interpretation [...] = BA#) 0.0 x10 3/uL 0.0-0.1 N [id number] 06:39:00* Test Item Value Reference Range Interpretation Comments GLUBED (test code = GLUBED) 69 MG/DL 70-105 L [id number] 21:24:00* Test Item Value Reference Range Interpretation Comments GLUBED (test code = GLUBED) 147 MG/DL 70-105 H BASIC METABOLIC [id number] 09:49:00* Test Item Value Reference Range Interpretation [...] code = CA) 8.5 mg/dL 8.5-10.5 N [id number] 06:52:00* Test Item Value Reference Range Interpretation Comments GLUBED (test code = GLUBED) 87 MG/DL 70-105 N [id number] 05:11:00* Test Item Value Reference Range Interpretation Comments GLUBED (test code = GLUBED) 76 MG/DL 70-105 N [id number] 03:11:00* Test Item Value Reference Range Interpretation Comments GLUBED (test code = GLUBED) 83 MG/DL 70-105 N [id number] 03:11:00* Test Item Value Reference Range Interpretation Comments GLUBED (test code = GLUBED) 100 MG/DL 70-105 N [id number] 03:11:00* Test Item Value Reference Range Interpretation Comments GLUBED (test code = GLUBED) 103 MG/DL 70-105 N [id number] 03:11:00* Test Item Value Reference Range Interpretation Comments GLUBED (test code = GLUBED) 114 MG/DL 70-105 H [id number] 03:11:00* Test Item Value Reference Range Interpretation Comments GLUBED (test code = GLUBED) 159 MG/DL 70-105 H [id number] 03:11:00* Test Item Value Reference Range Interpretation Comments GLUBED (test code = GLUBED) 98 MG/DL 70-105 N BASIC METABOLIC [id number] 21:01:00* Test Item Value Reference Range Interpretation [...] CA) 8.6 mg/dL 8.5-10.5 N CBC W/AUTO [id number] 16:54:00* Test Item Value Reference Range Interpretation [...] = MPV) 8.5 fl 6.4-10.5 N WBC [id number] 16:54:00* Test Item Value Reference Range Interpretation [...] code = MOC) Normal NORMAL COMPREHENSIVE METABOLIC [id number] 16:30:00* Test Item Value Reference Range Interpretation [...] code = ALKP) 69 U/L 42-121 N [id number] 16:30:00* Test Item Value Reference Range Interpretation Comments PHOSPHOROUS (test code = PHOS) 5.3 mg/dl 2.5-4.6 H [id number] 16:30:00* Test Item Value Reference Range Interpretation Comments MAGNESIUM (test code = MAG) 2.2 mg/dl 1.8-2.5 N PROTHROMBIN [id number] 16:10:00* Test Item Value Reference Range Interpretation [...] - 4.5 recurrent systemic embolism. THROMBOPLASTIN TIME [id number] 16:10:00* Test Item Value Reference Range Interpretation Comments THROMBOPLASTIN TIME PARTIAL (test code = PTT) 28 SECONDS 25-37 N CBC W/AUTO [id number] 15:56:00* Test Item Value Reference Range Interpretation [...] = MPV) 8.5 fl 6.4-10.5 N WBC [id number] 15:56:00* Test Item Value Reference Range Interpretation Comments TOTAL CELLS COUNTED (test code = TCC) #CELLS RBC MORPHOLOGY COMMENT (test code = MOC) NORMAL PLATELET MORPHOLOGY (test code = PLTMORPH) NORMAL CBC W/AUTO [id number] 15:56:00* Test Item Value Reference Range Interpretation [...] = MPV) 8.5 fl 6.4-10.5 N WBC [id number] 15:56:00* Test Item Value Reference Range Interpretation Comments TOTAL CELLS COUNTED (test code = TCC) #CELLS RBC MORPHOLOGY COMMENT (test code = MOC) NORMAL PLATELET MORPHOLOGY (test code = PLTMORPH) NORMAL - XR CHEST 1 [id number] 15:42:00Patient Name: WERNER MAXWELL Unit No: [id number] EXAMS: CPT: [id number] XR CHEST 1 V 20239 HISTORY: RENAL FAILURE COMPARISON STUDY: 12/19/2018 CHEST [...] (1545) BATCH NO: N/A Name: WERNER MAXWELL [facility] Phys: Milena Lanier [address] : 1965 Age: 53 Sex: [place] [address] Loc: N.ERS Exam Date: 02/06/2019 Status: REG ER PH: FAX: PAGE 1 Signed Report [id number] 08:46:00* Test Item Value Reference Range Interpretation Comments GLUBED (test code = GLUBED) 111 MG/DL 70-105 H BASIC METABOLIC [id number] 05:12:00* Test Item Value Reference Range Interpretation [...] code = CA) 8.1 mg/dL 8.5-10.5 L [id number] 05:12:00* Test Item Value Reference Range Interpretation Comments MAGNESIUM (test code = MAG) 1.9 mg/dl 1.8-2.5 N CBC W/AUTO [id number] 05:09:00* Test Item Value Reference Range Interpretation [...] = BA#) 0.1 x10 3/uL 0.0-0.1 N [id number] 21:10:00* Test Item Value Reference Range Interpretation Comments GLUBED (test code = GLUBED) 125 MG/DL 70-105 H [id number] 17:47:00* Test Item Value Reference Range Interpretation Comments GLUBED (test code = GLUBED) 162 MG/DL 70-105 H [id number] 12:41:00* Test Item Value Reference Range Interpretation Comments GLUBED (test code = GLUBED) 100 MG/DL 70-105 N [id number] 12:41:00* Test Item Value Reference Range Interpretation Comments GLUBED (test code = GLUBED) 151 MG/DL 70-105 H CBC W/AUTO [id number] 07:06:00* Test Item Value Reference Range Interpretation [...] = MPV) 8.2 fl 6.4-10.5 N WBC [id number] 07:06:00* Test Item Value Reference Range Interpretation [...] code = PLTMORPH) NORMAL NORMAL BASIC METABOLIC [id number] 06:50:00* Test Item Value Reference Range Interpretation [...] code = CA) 7.9 mg/dL 8.5-10.5 L [id number] 06:50:00* Test Item Value Reference Range Interpretation Comments PHOSPHOROUS (test code = PHOS) 3.3 mg/dl 2.5-4.6 N CBC W/AUTO [id number] 06:44:00* Test Item Value Reference Range Interpretation [...] = MPV) 8.2 fl 6.4-10.5 N WBC [id number] 06:44:00* Test Item Value Reference Range Interpretation Comments TOTAL CELLS COUNTED (test code = TCC) #CELLS RBC MORPHOLOGY COMMENT (test code = MOC) NORMAL PLATELET MORPHOLOGY (test code = PLTMORPH) NORMAL CBC W/AUTO [id number] 06:44:00* Test Item Value Reference Range Interpretation [...] = MPV) 8.2 fl 6.4-10.5 N WBC [id number] 06:44:00* Test Item Value Reference Range Interpretation Comments TOTAL CELLS COUNTED (test code = TCC) #CELLS RBC MORPHOLOGY COMMENT (test code = MOC) NORMAL PLATELET MORPHOLOGY (test code = PLTMORPH) NORMAL [id number] 21:29:00* Test Item Value Reference Range Interpretation Comments GLUBED (test code = GLUBED) 137 MG/DL 70-105 H [id number] 17:16:00* Test Item Value Reference Range Interpretation Comments GLUBED (test code = GLUBED) 117 MG/DL 70-105 H [id number] 13:31:00* Test Item Value Reference Range Interpretation Comments GLUBED (test code = GLUBED) 109 MG/DL 70-105 H [id number] 08:46:00* Test Item Value Reference Range Interpretation Comments GLUBED (test code = GLUBED) 117 MG/DL 70-105 H BASIC METABOLIC [id number] 06:30:00* Test Item Value Reference Range Interpretation [...] code = CA) 8.2 mg/dL 8.5-10.5 L [id number] 21:23:00* Test Item Value Reference Range Interpretation Comments GLUBED (test code = GLUBED) 144 MG/DL 70-105 H [id number] 17:04:00* Test Item Value Reference Range Interpretation Comments GLUBED (test code = GLUBED) 139 MG/DL 70-105 H [id number] 12:35:00* Test Item Value Reference Range Interpretation Comments GLUBED (test code = GLUBED) 134 MG/DL 70-105 H KRISTA [id number] 11:36:00* Test Item Value Reference Range Interpretation Comments KRISTA TITER (test code = ANATITR) 1:160 TITER KRISTA TITER (test code = ANATITR7) NUCLEOLAR TITER Interpretive Data: KRISTA Screen This test is performed by IFA slide method. KRISTA Titer: <40 Negative 40-80 Low Antibody Level >160 High Antibody Level - CT HEAD/BRAIN W/O [id number] 11:28:00Patient Name: WERNER MAXWELL Unit No: [id number] EXAMS: CPT: [id number] CT HEAD/BRAIN W/O CONT 99699 CT HEAD Multiplanar imaging of the head [...] in the care of your patient. Mervin Recinos MD Neuroradiology Radiation dose optimi zation was achieved by protocols in accordance with standard of practice, department policies and community mental health worker's recommendations with one or more of the following: Automated exposure control, adjustment of KVP and MAS by age and weight, iterative reconstruction technique. DLP: 419 mGy/cm Name: WERNER MAXWELL [facility] Phys: Tommy Hoovre MD [address] : 1965 Age: 53 Sex: M [place], [place] [address] Loc: N.6028 1 Exam Date: 01/20/2019 Status: ADM IN PH: FAX: PAGE 1 Signed Report (CONTINUED) Patie nt Name: WERNER MAXWELL Unit No: [id number] EXAMS: CPT: [id number] CT HEAD/BRAIN W/O CONT 22051 <Continued> at 1128 Reported and signed by: Mervin Recinos MD CC: Chau Lopez MD; Tommy Haider MD Technologist: QUIN Chow TDI: 25.34 DLP: 419.70 Trscr Dt/Tm: 01/20/2019 (1128) by:Tamar Orig Print D/T: S: 01/20/2019 (1131) BATCH NO: N/A Name: WERNER MAXWELL [facility] Phys: Tommy Hoover MD [address] : 1965 Age: 53 Sex: M [place], [place] [address] Loc: N.6028 1 Exam Date: 01/20/2019 Status: ADM IN PH: FAX: PAGE 2 Signed Report ANTINUCLEAR [id number] 11:25:00* Test Item Value Reference Range Interpretation Comments KRISTA SCREEN (test code = ANASCR) POSITIVE NEGATIVE A Interpretive Data: KRISTA Screen This test is performed by IFA slide method. SURGICAL [id number] 10:51:00 RUN DATE: 01/20/19 [facility] PAGE 1 RUN TIME: 1051 Specimen Inqui ry RUN USER: INTERFACE PATIENT: WERNER MAXWELL ACCT #: [id number] LOC: Slim U #: [id number] AGE/SX: 53/M ROOM: [facility] RE01/18/19REG DR: Tommy Haider MD : [birth year] BED: 1 DIS: STATUS: ADM IN TLOC: SPEC #: [id number] RECD: 01/19/19 STATUS: KENTON RODRIGUEZ #: [id number] MARCO: 01/19/190000 SUBM DR: Tommy Haider MD ENTERED: 01/19/19 SP TYPE: SURG OTHR DR: Rebecca Donato MD No,Doc Chau Lopez MDORDERED: GROSS, PATH SPEC, H E STAIN TISSUES: A. KIDNEY BIOPSY - Left kidney CL INICAL HISTORY Diagnosis/Clinical Data: STUART Operative Procedure: Left kidne y biopsy FINAL DIAGNOSIS Kidney, left, core biopsy: Biopsy forwa rded to [place] Path for further evaluation Electronically signed by: Mark rodriguez MD GROSS DESCRIPTION Received in Mckenzie's solution on ice labeled "left kidney" are three curry, threadlike cores measuring 1.1, 1.2, and 1.8 cm in length by 0.1 cm in diameter. Two cores are placed in Leroy's fixative an d one core is placed in Mio's fixative and sent to [place] for further processfred CROOKS 01/19/2019 10:56 AM Signed SIGNATURE ON FILE MellyMark chilel MD 01/20/19 1051 END OF REPORT SURGICAL [id number] 10:51:00 RUN DATE: 01/24/19 [facility] PAGE 1 RUN TIME: 1610 Specimen Inqui ry RUN USER: INTERFACE PATIENT: WERNER MAXWELL ACCT #: [id number] LOC: N.6S U #: [id number] AGE/SX: 53/M ROOM: N.6028 RE01/18/19REG DR: Tommy Haider MD : [birth year] BED: 1 DIS: 01/23/19 STATUS: DIS IN TLOC: SPEC #: [id number] RECD: 01/19/19 STATUS: KENTON KING #: [id number] MARCO: 01/19/190000 SUBM DR: Tommy Haider MD ENTERED: 01/19/19 SP TYPE: SURG OTHR DR: Rebecca Donato MD No,Doc Ojelexie,Chau Horne MDORDERED: GROSS, PATH SPEC, H E STAIN TISSUES: A. KIDNEY BIOPSY - Left kidney ADD ENDUM FINDINGS Addendum #1 Entered: 01/24/19 Path repor t # [id number] recieved and on file. Addendum Signed SIGNATURE ON FILE Mark Pickard MD 01/24/19 0920 CLINICAL HISTORY Diagnosis/Clinical Data: STUART Operative Procedure: Left kidney biopsy F INAL DIAGNOSIS Kidney, left, core biopsy: Biopsy forwarded to [place] Path r further evaluation Electronically signed by: Mark Pickard MD [facility] DESCRIPTION Received in Mckenzie's solution on ice labeled "left kidney" are three curry, threadlike cores measuring 1.1, 1.2, and 1.8 cm in length by 0.1 cm in diameter. Two cores are placed in Leroy's fixative and one core is pl aced in Mio's fixative and sent to [place] for further processing. VALERIY 9 10:56 AM Signed SIGNATURE ON FILE Mark Pickard MD 01/20/19 1051 EN D OF REPORT [id number] 09:27:00* Test Item Value Reference Range Interpretation Comments AMMONIA (test code = AMM) 28 umol/L 11-35 N [id number] 07:48:00* Test Item Value Reference Range Interpretation Comments GLUBED (test code = GLUBED) 125 MG/DL 70-105 H CBC W/AUTO [id number] 07:11:00* Test Item Value Reference Range Interpretation [...] 0.0 x10 3/uL 0.0-0.1 N COMPREHENSIVE METABOLIC [id number] 07:05:00* Test Item Value Reference Range Interpretation [...] code = ALKP) 92 U/L 42-121 N [id number] 07:05:00* Test Item Value Reference Range Interpretation Comments PHOSPHOROUS (test code = PHOS) 4.8 mg/dl 2.5-4.6 H [id number] 21:03:00* Test Item Value Reference Range Interpretation Comments GLUBED (test code = GLUBED) 98 MG/DL 70-105 N - CT GUID NDL PLCMT (Biopsy/Asp)2019-01-19 10:15:00Patient Name: WERNER MAXWELL Unit No: [id number] EXAMS: CPT: [id number] CT GUID NDL PLCAL (Biopsy/Asp) 8[address] CT-GUIDED LEFT KIDNEY BIOPSY HISTORY: Acute kidney [...] specimens were submitted to the laboratory in [facility]. Postbiopsy scanning demonstrated no significant perinephric hemato [...] (1018) BATCH NO: N/A Name: WERNER MAXWELL [facility] Phys: IQRebecca Bell MD [address] : 1965 Age: 53 Sex: M [place], [place] [address] Loc: [id number] 1 Exam Date: 01/19/2019 Status: ADM IN PH: FAX: PAGE 1 Signed Report BASIC METABOLIC [id number] 07:39:00* Test Item Value Reference Range Interpretation [...] CA) 8.5 mg/dL 8.5-10.5 N CBC W/AUTO [id number] 07:13:00* Test Item Value Reference Range Interpretation [...] 0.1 x10 3/uL 0.0-0.1 N UR PROTEIN [id number] 03:18:00* Test Item Value Reference Range Interpretation Comments UR PROTEIN RANDOM (test code = PROTU) 348 mg/dl 0-40 H UR CREATININE [id number] 03:18:00* Test Item Value Reference Range Interpretation Comments UR CREATININE RANDOM (test code = CREATU) 177.27 mg/dL 40-300 N UA RFLX MICR CULT IF [id number] 01:18:00* Test Item Value Reference Range Interpretation [...] NONE SEEN Indication for culture: Dysuria/FrequencyUR PROTEIN [id number] 01:08:00* Test Item Value Reference Range Interpretation Comments UR PROTEIN RANDOM (test code = PROTU) mg/dl 0-40 UR CREATININE [id number] 01:08:00* Test Item Value Reference Range Interpretation Comments UR CREATININE RANDOM (test code = CREATU) 177.27 mg/dL 40-300 N ACUTE HEPATITIS [id number] 14:11:00* Test Item Value Reference Range Interpretation Comments AB HEPATITIS A IGM (test code = HAVMAB) NEGATIVE NEGATIVE AG HEPATITIS B SURFACE (test code = HBSAG) NEGATIVE NEGATIVE AB HEPATITIS B CORE IGM (test code = HBCMAB) NEGATIVE NEGAITVE AB HEPATITIS C (test code = HCVAB) NEGATIVE NEGATIVE ACUTE HEPATITIS [id number] 12:31:00* Test Item Value Reference Range Interpretation Comments AB HEPATITIS A IGM (test code = HAVMAB) NEGATIVE AG HEPATITIS B SURFACE (test code = HBSAG) NEGATIVE AB HEPATITIS B CORE IGM (test code = HBCMAB) NEGATIVE NEGAITVE AB HEPATITIS C (test code = HCVAB) NEGATIVE NEGATIVE COMPREHENSIVE METABOLIC [id number] 09:37:00* Test Item Value Reference Range Interpretation [...] code = ALKP) 92 U/L 42-121 N [id number] 09:37:00* Test Item Value Reference Range Interpretation Comments MAGNESIUM (test code = MAG) 2.0 mg/dl 1.8-2.5 N COMPREHENSIVE METABOLIC [id number] 09:24:00* Test Item Value Reference Range Interpretation [...] code = ALKP) 92 U/L 42-121 N JLNIKHFRR7747-77-06 09:24:00* Test Item Value Reference Range Interpretation Comments MAGNESIUM (test code = MAG) 2.0 mg/dl 1.8-2.5 N PROTHROMBIN [id number] 09:12:00* Test Item Value Reference Range Interpretation [...] - 4.5 recurrent systemic embolism. THROMBOPLASTIN TIME [id number] 09:12:00* Test Item Value Reference Range Interpretation Comments THROMBOPLASTIN TIME PARTIAL (test code = PTT) 29 SECONDS 25-37 N BLOOD [id number] 19:00:00* Test Item Value Reference Range Interpretation Comments CULTURE (BEAKER) (test code = 1095) No growth in 5 days BLOOD PQBTGWM4451-79-01 19:00:00* Test Item Value Reference Range Interpretation Comments CULTURE (BEAKER) (test code = 1095) No growth in 5 days URINE [id number] 11:09:00* Test Item Value Reference Range Interpretation Comments CULTURE (BEAKER) (test code = 1095) <10,000 col/mL skin sita EOSINOPHIL SMEAR, [id number] 19:57:00* Test Item Value Reference Range Interpretation Comments EOSINOPHIL SMEAR, URINE (BEAKER) (test code = 1851) No EOS seen No EOS seen RAPID DRUG SCREEN, [id number] 19:03:00* Test Item Value Reference Range Interpretation [...] Chain of custody not maint ained. Some okxs-plx-btzhnub medications, as well as adulterants, may cause inac curate results. Clinical correlation should be applied. A more comprehensive marcella g screen or confirmation of a detected drug may be performed upon request. CREATININE, RANDOM [id number] 17:44:00* Test Item Value Reference Range Interpretation Comments CREATININE URINE (BEAKER) (test code = 375) 71.8 mg/dL Reference Range: No NormalsSODIUM, RANDOM [id number] 17:44:00* Test Item Value Reference Range Interpretation Comments SODIUM URINE (BEAKER) (test code = 243) 121 meq/L Reference Range: No NormalsOSMOLALITY, [id number] 17:24:00* Test Item Value Reference Range Interpretation Comments OSMOLALITY URINE (BEAKER) (test code = 614) 593 mOsm/kg 40-1400 URINALYSIS W/ [id number] 17:08:00* Test Item Value Reference Range Interpretation [...] = 2795) Urine, Voided CT, BRAIN, WITHOUT [id number] 13:19:00FINAL REPORT CT head without contrast 04/14/2017 [...] Tejada Verified Date/Time: 04/14/2017 13:19:08 Reading Location: [facility] Radiology Reading Room El ectronically signed by: KRISS TEJADA M.D. on 04/14/2017 01:19 PM VITAMIN B12 AND [id number] 07:32:00* Test Item Value Reference Range Interpretation Comments VITAMIN B12 (BEAKER) (test code = 774) 997 pg/mL 213-816 H FOLATE (BEAKER) (test code = 362) 14.7 ng/mL >=7.0 [id number] 07:02:00* Test Item Value Reference Range Interpretation Comments PHOSPHORUS (BEAKER) (test code = 604) 3.3 mg/dL 2.3-4.7 [id number] 07:02:00* Test Item Value Reference Range Interpretation Comments MAGNESIUM (BEAKER) (test code = 627) 1.8 mg/dL 1.6-2.6 BASIC METABOLIC [id number] 07:02:00* Test Item Value Reference Range Interpretation [...] NOT APPLICABLE FOR DIALYSIS PATIENTS. HEPATIC FUNCTION [id number] 07:02:00* Test Item Value Reference Range Interpretation [...] 6-55 H CBC W/PLT COUNT & AUTO IHMNJESQHDPF9414-58-32 06:29:00* Test Item Value Reference Range Interpretation [...] 2801) 1 % 0-1 VALPROIC ACID LEVEL, [id number] 22:32:00* Test Item Value Reference Range Interpretation Comments VALPROIC ACID TOTAL (BEAKER) (test code = 924) 59 ug/mL 50-100 Therapeutic range for some clinical conditions may be >100 ug/mLPlease check two hours after valproic acid infusion is completedU/S, RENAL, [id number] 21:19:00Reason for exam:->akiFINAL REPORT Technique: Sonographic images [...] MDReport Verified Date/Time: 04/13/2017 21:19:24 Reading Location: [address] Consult Reading Room /FREE T4 IF [id number] 20:09:00* Test Item Value Reference Range Interpretation Comments THYROID STIMULATING HORMONE (BEAKER) (test code = 772) 1.01 uIU/mL 0.35-4.94 EEG AWAKE AND [id number] 19:59:00Reason for exam:->encephalopathyDATE OF TEST: 09-07-2016 DATE [...] Jonnathan Metcalf M.D., FACNS, FAAN, FAES Director, [facility] Head, [facility] DATE OF TEST: 04-13-2017 DA TE OF REPORT: 04-13-2017 ACC: [id number] EE Start time: 18:13 Stop ti me: 18:36 ICD-10: G93.40 CPT Code: 60009 HISTORY: 51 y.o. unknown male with PMH of HTN, HLD, CAD, PVD, MDD who presents from a long-term for possible st roke like symptoms. He was found in bed at his long-term with incoherent spee ch. CT head showed [...] Jonnathan Metcalf M.D., ANGELICA TANNER, KAYLI Director, [facility] Head, [facility] Neurophysiology Lab MEDICATIONS: Aspirin, hydralazine, carvedilol, Plavix, Coreg, Valproic acid, baclofen, Nifidipine. TECHNICAL MCBRIDE MMARY: This is a digital video EEG recorded with 32 input channels reviewed wi th bipolar and referential montages using the modified combinatorial system [place] nclature. DESCRIPTION OF RECORD: There is no [...] Jonnathan Metcalf M.D., ANGELICA TANNER FAES Director, [facility] lepsy [facility], [facility] Neurophysiology Lab DATE OF TEST: 09-07-2016 OSIRIS [...] Jonnathan Metcalf M.D., FACNS, FAAN, FAES Director, [facility] Epilepsy [facility], [facility] chanel Neurophysiology Lab [id number] 17:35:00* Test Item Value Reference Range Interpretation Comments ETHANOL (BEAKER) (test code = 400) < mg/dL <=10 POCT-LACTIC ACID, [id number] 12:20:00* Test Item Value Reference Range Interpretation Comments POC-LACTIC ACID, VENOUS (BEAKER) (test code = 2805) 0.6 mmol/L 0. 9-1.[address] [facility] [address] [facility] [address] RAD, CHEST, 1 VIEW, NON [id number] 11:46:00Reason for exam:->strokeFINAL REPORT Two frontal chest [...] MDReport Verified Date/Time: 04/13/2017 11:46:36 Reading Location: [facility] Radiology Reading Room Electronically floyd d by: LEIDY CURRY M.D. on 04/13/2017 11:46 AM VALPROIC ACID LEVEL, TOTAL 2017-04-13 11:08:00* Test Item Value Reference Range Interpretation Comments VALPROIC ACID TOTAL (BEAKER) (test code = 924) 38 ug/mL 50-100 L Therapeutic range for some clinical conditions may be >100 ug/mLBASIC METABOLIC [id number] 11:08:00* Test Item Value Reference Range Interpretation [...] ESTIMATED GFR. CBC W/PLT COUNT & AUTO [id number] 11:08:00* Test Item Value Reference Range Interpretation [...] % 0-1 CREATINE KINASE (CK), TOTAL AND [id number] 11:07:00* Test Item Value Reference Range Interpretation Comments CREATINE KINASE TOTAL (BEAKER) (test code = 380) 245 U/L 29-20 0 H CREATINE KINASE-MB (BEAKER) (test code = 750) 2.8 ng/mL 0.0-6.6 CREATINE KINASE-MB INDEX (BEAKER) (test code = 395) 1.1 % CK-MB Reference Range:<6.7 Normal6.7-10.0 Borderline>10.0 Abnormal TROPONIN [id number] 11:07:00* Test Item Value Reference Range Interpretation [...] (test code = 700) 90 pg/mL 0-100 PT/[id number] 11:05:00* Test Item Value Reference Range Interpretation [...] 2.5-3.5 for pat ients with mechanical heart valves.HOQRKPBHV0138-55-38 11:00:00* Test Item Value Reference Range Interpretation Comments MAGNESIUM (BEAKER) (test code = 627) 2.0 mg/dL 1.6-2.6 [id number] 10:52:00* Test Item Value Reference Range Interpretation Comments AMMONIA (BEAKER) (test code = 348) 32 mol/L 18-72 CT, BRAIN/STROKE [id number] 10:07:00Reason for exam:->strokeFINAL REPORT CT head without [...] Verified Date/Time: 04/13/2017 10:07:00 Reading Locatio n: [facility] B1 C013V Neuro Reading Room E AND [id number] 01:18:00Trace *ABN*(02/18/17 8:18 PM)[facility] TKDCO6325-00-62 01:18:001.017 [facility] KJQNA1521-05-83 01:18:00Clear (02/18/17 8:18 PM) [facility] CPPHI1103-90-84 01:18:00Yellow *NA*(02/18/17 8:18 PM) [facility] VSRNP4515-56-98 01:18:00Negative (02/18/17 8:18 PM) [facility] UWQZA1677-55-27 01:18:002.0[facility] BLDFZ3004-13-71 01:18:00Small *ABN*(02/18/17 8:18 PM)[facility] QJHHC1435-91-35 01:18:00Negative *NA*(02/18/17 8:18 PM)[facility] NOLRZ9244-78-68 01:18:006.0[facility] KWXDM8926-31-41 01:18:004 [facility] IXGRM0825-52-91 01:18:005[facility]annCARDIAC LEMQKTM2968-66-44 23:30:000.7[facility]annCARD[facility]AC QSFTJDR8422-89-76 23:30:00 144[facility]annCARDIAC VAWWRMD8512-70-42 23:30:001.0[facility]ann[facility]AC QDIUHRL4508-23-84 23:30:00<0.02[facility]annCHEM EZBDX6130-00-12 23:30:002.4 [facility]annCHE[facility] GWBOW3743-67-01 23:30:003.1[facility]annCHEM PANEL 2017-02-18 23:30:0093[facility]annCHE[facility] KYRWV9954-66-21 23:30:0064[facility]annCHE[facility] FSDIW1637-43-41 23:30:0014[facility]annCHE[facility] SJLHR8224-35-63 23:30:0012.2[facility]annCHE[facility] PJXGW2165-10-01 23:30:000.8[facility]annCHE[facility] KNSOT9792-14-37 23:30:004.6[facility]annCHE[facility] TMKQO9112-24-07 23:30:000.4 [facility] HSQTW4514-76-80 23:30:0072[facility]annCHE[facility] PANEL 2017-02-18 23:30:003.6[facility]annCHE[facility] GGMAC5347-49-82 23:30:15730Pozjmhlc HermannCHEM PHDQI0838-19-68 23:30:0038[facility]annCHE[facility] ZLTEY9313-30-15 23:30:0025[facility]annCHE[facility] LFVDL7780-84-25 23:30:0085[facility]annCHEM XHIMZ3891-22-07 23:30:001.44[facility]annCHEM AVEJN6664-23-48 23:30:0020 [facility] XMNMX4890-00-31 23:30:008.2[facility]annCHEM PANEL 2017-02-18 23:30:75620Pbjtqtrv [facility]annCHEM COZBT3653-32-85 23:30:004.2[facility]annCHEM HQURW7346-76-51 23:30:009.5[facility]annCHEM RMHXD1416-72-74 23:30:35966Lwcchybo LtkmehnUJMNJCYDWA6304-28-01 23:30:0010.8[facility] PMVIAOGFFU0957-16-75 23:30:006.4[facility] FpiljneHKSSVDQVAP9223-78-14 23:30:001.2 [facility] ObmgibwRSNYGEKVDD7593-05-13 23:30:002.8[facility]annHEMATOLOGY 2017-02-18 23:30:000.6[facility] NcdjjukPIIRSIZZEE0000-14-86 23:30:000.4[facility] JbduuhqDSRRNJCZDC5359-59-27 23:30:000.1[facility] XqqbhncNQFWWVIOVB5696-88-18 23:30:002.0[facility] OpshgolEFSEBSBMUH7042-24-57 23:30:0047.9[facility] QBMAFXUHZF2707-11-55 23:30:0033.7[facility] YxqxpqyBYTJAWISPU5568-50-30 23:30:00 41.5[facility] WrodrxiZTEUFYPMFD7017-24-40 23:30:0086.5[facility]annHEMATOLOGY 2017-02-18 23:30:00* Test Item Value Reference Range Interpretation Comments MCH (test code = MCH) 28.8 pg 27.0-31.0 [facility] OvvejbeTGUUBKOMWR3100-20-04 23:30:0016.9[facility]annHEMATOLOGY 2017-02-18 23:30:92461Jbwtdfro ZqzndruKXJRGNSVAS3296-90-77 23:30:0033.3[facility] FzrxuyuIWAXOETKMO4476-52-02 23:30:009.1[facility] GapinjlLXKDQYINSA2201-75-85 23:30:005.9[facility] CpdoyttEHAPENVWNX3858-74-86 23:30:004.79[facility] LHEKYUNIPT9560-21-60 23:30:0013.8[facility] HermannCT HEAD W/O DXSIMCZQ1057-86-30 12:18:52CT Brain without contrast.Location code:X1WOODLUBO HISTORY: headache,HTNComparison: NoneTechnique: Routine unenhanced CT brain [...] acuteabnormality noted.CT HEAD W/O CONTRAST 2017-02-16 22:51:25LOCATION: G44PWZASEK: 51-year-old male, pulmonary symptoms not otherwise specified.COMMENT: After-hours service at 10:31 p.m.A frontal chest radiograph was obtained at the bedside at 10:04 p.m.Patchy atelectasis is seen in both lung bases. The cardiac silhouette andmediastinum are unremarkable. The skeleton and soft tissues are unremarkable.surveillance monitor leads are present.IMPRESSION:Patchy atelectasis is seen in both this patient's lung bases. XR CHEST 1 VIEW WUZKNFSJ6654-22-10 22:51:25LOCATION: P15YFNIVZE: 51-year-old male, pulmonary symptoms not otherwise specified.COMMENT: After-hours service at 10:31 p.m.A frontal chest radiograph was obtained at the bedside at 10:04 p.m.Patchy atelectasis is seen in both lung bases. The cardiac silhouette andmediastinum are unremarkable. The skeleton and soft tissues are unremarkable.surveillance monitor leads are present.IMPRESSION:Patchy atelectasis is seen in both this patient's lung bases.CARDIAC JXDSSVV6623-67-31 22:41:00* Test Item Value Reference Range Interpretation Comments TROPONIN I (test code = A84) <0.015 ng/mL 0.000-0.045 CKMB (test code = A49) <1.0 ng/mL <=3.6 CPK (test code = 32A) 174 IU/L 39-308 LIVER HRTNUIH0260-42-52 22:40:00* Test Item Value Reference Range Interpretation [...] code = 31A) 86 IU/L <=78 H JZTVWSCRPSSWM7614-16-78 22:40:00* Test Item Value Reference Range Interpretation Comments ACETAMINPH (test code = 94M) <2.0 ug/mL 10.0-30.0 L COMPREHENSIVE METABOLIC PSG9257-19-97 22:39:00* Test Item Value Reference Range Interpretation [...] note the change in reference range AMMONIA EPWUY1254-54-21 22:37:00* Test Item Value Reference Range Interpretation Comments AMMONIA (test code = 54A) 42 umol/L 11-32 H BOOBRHMTMIS0523-00-69 22:37:00* Test Item Value Reference Range Interpretation Comments SALICYLATE (test code = 94B) <1.7 mg/dL 2.8-20.0 L DRUGS OF DMPIJ0536-29-78 22:35:00* Test Item Value Reference Range Interpretation [...] 200 ng/mL Opiates 2000 ng/mL URINALYSIS WITH XXOPM3375-31-27 22:28:00* Test Item Value Reference Range Interpretation [...] MORPH (test code = RBCMOR) NORMAL CHEM YCDBU5966-78-01 22:55:002.10[facility]annCHEM CTMAJ4917-61-11 22:55:0031 [facility] HermannCHEM WYYFJ9164-59-42 22:55:0040[facility] HermannCHEM PANEL 2016-10-03 22:55:009.1[facility] HermannCHEM SQTLP6280-42-67 22:55:0021[facility] HermannCHEM BUCLN5566-12-71 22:55:004.5[facility] HermannCHEM UYTOQ3352-68-17 22:55:49950Jbajmuao HermannCHEM SSCIG3262-26-96 22:55:58072Ryekpuew HermannCHEM IUZGN4916-82-06 22:55:0087[facility] HermannCHEM DWFKI5044-13-82 22:55:0016.5 [facility] HeithsxUMSWSZOWSH5571-85-47 22:55:00* Test Item Value Reference Range Interpretation Comments PTT (test code = PTT) 33.2 s 22.9-35.8 [facility] WzrsbnjIUNZGIIOVF9049-14-11 22:55:00* Test Item Value Reference Range Interpretation Comments PT (test code = PT) 13.3 s 12.0-14.7 [facility] FjyopnoCEWEIBMXMN4584-18-14 22:55:000.99[facility]annHEMATOLOGY 2016-10-03 22:55:008.4[facility] TovssrhBKJZMMOVRB7239-93-23 22:55:94837Ljepbflr AupxyowNULYYZJKYA1653-45-97 22:55:0033.4[facility] HdbtyydDINQDHSIFU1672-59-05 22:55:00* Test Item Value Reference Range Interpretation Comments MCH (test code = MCH) 28.3 pg 27.0-31.0 [facility] QkiaowoNNCOCHDUCX9311-80-79 22:55:0084.6[facility] HermannHEMATOLOGY 2016-10-03 22:55:0015.9[facility] UapwkylMBXOLXHQPC1434-74-49 22:55:0036.0[facility] BsxhiymJIPMRUMSMV2541-19-44 22:55:0012.0[facility] ZhuofwfNBJXMQGNZT0562-34-11 22:55:004.26[facility] BzruhelSCOLZMHNPV9771-68-66 22:55:008.3[facility] VPHPXLOUME4317-42-77 22:55:000.3[facility] PogocpdUQYSCHFLDS0327-28-41 22:55:005.3 [facility] ZxjajblBNIOLTKONX0630-65-54 22:55:000.9[facility] HermannHEMATOLOGY 2016-10-03 22:55:001.7[facility] IumibsjUAYFUDLGRD3936-59-41 22:55:000.1[facility] CnabulwIGJJEDKRGJ3246-20-54 22:55:001.0[facility] YjffcgvTQRMKZXLEN4378-66-84 22:55:003.5[facility] QfjjhvdDFPZCXCGKD4268-77-42 22:55:0020.7[facility] ZJYGZQYZFO8547-61-08 22:55:0010.5[facility] RgvonwfFHFLXZXHDV4905-12-06 22:55:00 64.3[facility] HermannDRUG VRAOCE0399-44-81 23:59:00Negative *NA*(09/26/16 6:59 PM) [facility]annDRUG ORYDFV8782-97-72 23:59:00Negative *NA*(09/26/16 6:59 PM) [facility]annDRUG HRDJDA0598-08-75 23:59:00Negative *NA*(09/26/16 6:59 PM) [facility]annDRUG PYAASN9715-69-41 23:59:00Negative *NA*(09/26/16 6:59 PM) [facility]annDRUG KRBXWY9395-46-43 23:59:00Negative *NA*(09/26/16 6:59 PM) [facility]annDRUG ITIIXM1834-07-53 23:59:00See Note *NA*(09/26/16 6:59 PM) [facility]annDRUG DNANDL2094-63-71 23:59:00Negative *NA*(09/26/16 6:59 PM) [facility]annDR[facility] XCQVHB9067-32-52 23:59:00Negative *NA*(09/26/16 6:59 PM) [facility]annCHEM QHKDY5996-04-24 23:13:0088[facility] HermannELECTROLYTES 2016-09-26 23:13:91377Ddbslrcl OarilewXVPGEMHHNJDV3457-20-83 23:13:004.6[facility] ZhrruktPQNKUUTRXNLL0794-52-35 23:13:008.8[facility] RoruehaKQTKDFWCVSSO3675-67-62 23:13:99804Zrnoshsn LflczgxAOPLFMQNIWYX5011-67-17 23:13:0034[facility] ATIFDYXEXZZZ8491-50-63 23:13:0032[facility] ZjvueuyQUCQNSVGANWS1871-45-51 23:13:00 91[facility] XmlflzzXMFSFQPPAHKB4405-93-12 23:13:003.0[facility] HermannELECTROLYTES 2016-09-26 23:13:0075[facility] KqifvwkDAFISRZNXGUL7691-11-93 23:13:002.42[facility] FoeszhlWEZEPAGFFNJL2661-38-78 23:13:13224Ckbjbmgs GcehkwpEMCGRZZOWEDP3311-95-67 23:13:0022[facility] NlbhjlcJXQWVUTEQZHG2039-58-40 23:13:000.4[facility] DQXVYECONWPA5298-15-41 23:13:01227Udjwglrk FhdxqbtFGYGVXWQJWRR4136-13-85 23:13:008.3[facility] UopahgyVUDPFRLCNLOF0119-25-21 23:13:0013[facility] WVRUJZCQFOKF8689-77-09 23:13:0015.6[facility] RkijqetWGWPJLJYSDCV0901-03-65 23:13:000.6[facility] PvjdeutKHPRQNHVYMCK2687-01-63 23:13:005.3[facility] IIMQSCEZHR5600-86-73 23:13:0016.3[facility] AvtzgvpNKJVXDFWBL1668-48-10 23:13:00 7.6[facility] KixlkwkYHVHRFOEQP1902-65-69 23:13:0031.5[facility] HermannHEMATOLOGY 2016-09-26 23:13:14109Rviuunyn NpkcjtjWQOPSMIEHF1800-38-94 23:13:00* Test Item Value Reference Range Interpretation Comments MCH (test code = MCH) 27.6 pg 27.0-31.0 [facility] EveqriwWMPWUQQGYC6778-20-73 23:13:0034.6[facility]annHEMATOLOGY 2016-09-26 23:13:0087.7[facility] IxgfkmrHUQVPCWAGS4730-31-77 23:13:0010.9[facility] OibibqqOJCLMZJMLL3420-56-69 23:13:003.95[facility] GagsuhmMDULDIRYJO5442-57-74 23:13:007.9[facility] HmflrfuKCHENILJSX9933-04-53 23:13:001.7[facility] IREVGBTBYV5237-98-56 23:13:000.7[facility] IrejrbfTUYYKLDNGX4368-37-71 23:13:000.1 [facility] IwiwasyDZNIIXFGMN5190-09-82 23:13:004.6[facility]annHEMATOLOGY 2016-09-26 23:13:000.8[facility] SsnanfwLYEWKMBXLQ4854-20-44 23:13:001.2[facility] CyyufvmGESVIGLCXZ9707-06-14 23:13:0021.8[facility] BblfvjyFYMKZCPUXS3092-63-82 23:13:009.7[facility] TtrgsqoYGRBGKERIT2672-38-29 23:13:008.8[facility] LYFYYKSOAW8542-33-67 23:13:0058.5[facility] IjetqbcAGIZBZERLV2954-45-45 23:13:00<2 (09/26/16 6:13 PM)[facility] AplvrcoIFEHMAJMDS5819-42-44 23:13:00<0.003[facility] NfxzbyjCLCFVYLSOR7605-75-22 23:13:00<3[facility] LcemnbgPTAVSOXSCI7895-03-32 23:13:00<1.7[facility] JlnzrihDKJISXHWSEPD4341-64-82 11:50:0013.2[facility] ASHJFKUVDVAB6944-48-99 11:50:003.6[facility] UnxxkoeVBZWDVMSPOES5388-36-29 11:50:0044[facility] BvjhqzbRKVNTBQUJYHM7097-90-15 11:50:001.94[facility] CJBHAHXBRBDE2859-24-27 11:50:0026[facility] EzvxjmuOHDSDTNFBIJP9157-10-88 11:50:00 9.2[facility] ObfbnbxTNLBHIKNYVBH4341-47-20 11:50:0087[facility] HermannELECTROLYTES 2016-08-18 11:50:05210Okqlhmqe NghperbVIGSWWRAHJTS4802-10-43 11:50:004.2[facility] KczwlqlMATDOKIAMFLF9816-30-33 11:50:98508Mbiolooh HwepcbnRUCPHFERHISZ2966-46-01 11:50:0022[facility] LusepbpQUIQLMOZWNXA9303-06-18 11:50:002.9[facility] JBYQMWWLNA1275-48-32 11:50:0012.4[facility] KwwczewAMQJCMSEJW1403-27-80 11:50:00 28.9[facility] WppkusmGSXYJDUFCQ3554-70-10 11:50:0048.2[facility]annHEMATOLOGY 2016-08-18 11:50:004.1[facility] OehrkxmDTVPMXKRRZ2210-71-06 11:50:001.3[facility] EgdnxxmIQTVMYVXUZ8103-55-61 11:50:009.2[facility] AbrvoxsFPDEQVMVVP3406-95-65 11:50:000.8[facility] DiqonyeIEGGZPNGCD7260-62-43 11:50:001.1[facility] TVMHIVGBLN8100-59-33 11:50:002.5[facility] HbtabbsMDSBFYHWOM3786-10-41 11:50:000.1 [facility] UbhrzpvYYPRVHTUBI7894-47-79 11:50:008.0[facility]annHEMATOLOGY 2016-08-18 11:50:55586Qcjmhdaz OwlzhtoBGPSRNISWR2776-01-16 11:50:0033.9[facility] YfwqtpzBUCBZEGQSP2029-85-78 11:50:0011.0[facility] UlgnbmjQRRDOJYHNV0459-38-68 11:50:003.96[facility] KamrhrmDZKVIIEATE4868-03-63 11:50:008.6[facility] AJGUNQEJAU5547-45-47 11:50:0017.6[facility] JqyugdeNELVBVOVLG0839-62-25 11:50:00 32.6[facility] TkuaffpTRCVGIXJFB7475-70-88 11:50:00* Test Item Value Reference Range Interpretation Comments MCH (test code = MCH) 27.9 pg 27.0-31.0 [facility] FdxplefWSTYGGPWSL8045-31-01 11:50:0085.5[facility] HermannCHEM PANEL 2016-08-17 12:46:009.0[facility]annCHEM DNNBB3496-21-30 12:46:002.9[facility]annCHEM FHWNL9322-57-95 12:46:46988Jzqfrtxa HermannCHEM DIFHQ8336-01-87 12:46:0023[facility]annCHEM QRZXJ3301-75-94 12:46:0083[facility]annCHEM NPHKE4853-61-83 12:46:0027[facility]annCHEM UXOPT6984-63-51 12:46:004.3 [facility]annCHE[facility] IVFCU7803-10-43 12:46:90336Rotglehz HermannCHEM PANEL 2016-08-17 12:46:003.9[facility]annCHEM FKEEQ3124-90-79 12:46:0047[facility]annCHEM WPJNL6586-91-30 12:46:001.84[facility]annCHEM RNWBD6330-28-41 12:46:0015.3[facility] VwaaurjGXSHDXQXRY9363-70-22 12:46:000.8[facility] UXUQPXGCJX8240-68-65 12:46:000.9[facility] MgiorskVDCSGWUFGB5002-05-56 12:46:000.1 [facility] QvjwatsYOPELZROFF4581-10-69 12:46:0053.1[facility]annHEMATOLOGY 2016-08-17 12:46:0010.1[facility] YlcrcpnVSPXWKWWRK1436-68-70 12:46:0026.4[facility] CtiwibjCXOYJTHLEZ3046-25-75 12:46:009.3[facility] XowdnvzUFYUZUKSLX6188-54-06 12:46:001.1[facility] ZrjkylfZHBEGSVVKB7225-26-67 12:46:004.5[facility] KXEWCQTSEY4654-79-43 12:46:002.2[facility] YuqcdsfAZGHNXZUGE7188-64-97 12:46:008.4 [facility] NsrplfeXQNJEYICAM3716-57-20 12:46:004.21[facility]annHEMATOLOGY 2016-08-17 12:46:00* Test Item Value Reference Range Interpretation Comments MCH (test code = MCH) 27.5 pg 27.0-31.0 [facility] RmtsjbaHOFEZDICYA0371-90-43 12:46:0036.4[facility]annHEMATOLOGY 2016-08-17 12:46:0086.4[facility] HyldzsvWUNGQDYRVG0861-51-63 12:46:0011.6[facility] SrparylXDWPQXVHGK2351-93-80 12:46:0031.8[facility] KoijnubQGMMMEMWBQ7363-32-84 12:46:0017.4[facility] UglrmupNNLZAUZOFC2195-13-24 12:46:29178Basgsvbz [facility] WHMZYYKBNF0334-62-88 12:46:008.2[facility] HermannCHEM SEZCZ6266-29-49 10:44:0043 [facility]annCHEM PSBFU2442-26-43 10:44:001.98[facility]annCHEM PANEL 2016-08-16 10:44:0024[facility]annCHEM QBMUI8029-96-27 10:44:89341Pbucsdza HermannCHEM EBOWD5562-47-15 10:44:008.8[facility]annCHEM PZEZD6905-20-43 10:44:0026[facility]annCHEM IKFVQ9299-55-85 10:44:0082[facility]annCHEM YCWPG1726-06-39 10:44:90110Sstrcudg HermannCHEM JXTFP8454-92-66 10:44:004.4 [facility]annCHEM NAJTP5461-58-68 10:44:0013.4[facility]annHEMATOLOGY 2016-08-16 10:44:008.1[facility] KcyudttWGDBEAXNES2334-66-60 10:44:81774Snfoqjpd PhniewcZHCRQJWITZ3521-13-15 10:44:003.95[facility] AopgxxrNIMUUXUXKV6464-43-55 10:44:008.6[facility] IcgjbzyPHXNPVZEVU6543-83-62 10:44:0010.9[facility] UGURTJNKIW0427-97-36 10:44:0033.4[facility] QmvvkcwRFSKXEZDOB4210-74-17 10:44:00 84.6[facility] ZpqoonjOBJPVEGRKP7928-34-64 10:44:00* Test Item Value Reference Range Interpretation Comments MCH (test code = MCH) 27.6 pg 27.0-31.0 [facility] RtodrimRSITWQMKQH9961-99-19 10:44:0017.5[facility]annHEMATOLOGY 2016-08-16 10:44:0032.6[facility] IgnpubkYACCKEQCCG2263-46-22 10:44:000.7[facility] TzaciwuIEITFKDUNX6175-80-92 10:44:002.3[facility] YdfxjrcMWSDXTOJAH1607-76-14 10:44:000.9[facility] MquyiubDPCLTHZLFU2177-48-94 10:44:000.1[facility] IABTWGUWIP9016-28-12 10:44:007.8[facility] RbfowelMADNUMPLZJ9190-79-09 10:44:00 27.1[facility] JfhufbdTBCOGBQUUA6977-16-96 10:44:0010.9[facility]annHEMATOLOGY 2016-08-16 10:44:004.6[facility] WjzmmnsKMPNVDQZJC1494-47-88 10:44:001.2[facility] BaayhmiTSVGXFDMRB8494-71-01 10:44:0053.0[facility] NymzfblCUNSJCNGKK7631-41-81 15:50:0014.6[facility] GrjrbsqKOZTFRTCDG3002-95-91 15:50:295450Pmhfsdsp [facility] OBJWIVKAHV9275-46-33 03:12:443743Qvkacvuz VzgfwujSFTNQCBWGE3873-54-61 03:12:00 19.5[facility] BWOCQ6038-28-69 10:01:002.3[facility]annCHEM PANEL 2016-08-13 10:01:003.9[facility]annCHE[facility] LPXPS2815-53-59 10:01:002.8[facility] LsrzyohTWIUJFJAJL6432-31-01 19:14:0078[facility] MrggzqzRDVZBFTNLX1278-96-98 19:14:0010.8[facility]annCHEM ADMHJ1157-62-65 02:32:0017[facility]annCHE[facility] RGEKT0047-98-47 02:32:52188Rnlqnjzl HermannCHEM XCYCS6430-33-47 02:32:000.2 [facility] GXBAC2741-94-32 02:32:007.7[facility]annCHEM PANEL 2016-08-12 02:32:0028[facility]annCHE[facility] LLDYL5123-28-74 02:32:0023[facility]annCHE[facility] ABNZH5801-32-08 02:32:004.5[facility]annCHE[facility] TRQFK2037-40-42 02:32:000.7[facility] TsvllxpZUCCSBBFWODJ1606-33-98 13:08:0016.9[facility] YVNMGZRAPNEY9850-91-46 13:08:003.9[facility] OlpabspOCGEQJGKWGAT2180-74-20 13:08:59398Yovivsyc MivlyssDJOVTYNJCZGB9996-26-82 13:08:002.60[facility] ACUSQHOPVYXX9008-73-40 13:08:0027[facility] BzkrwheQLKKFLEKEUST7273-02-38 13:08:00 20[facility] VsgeiijUHCPTFKDJDKE2846-18-76 13:08:009.7[facility] HermannELECTROLYTES 2016-06-13 13:08:65904Wivzrshl IuusfikASUSOXPSAEII3285-84-17 13:08:0027[facility] KwxtqkbJVXKTKYYQJTS4015-82-65 13:08:0073[facility]annCHEM OKBGH6616-38-80 12:16:0027[facility]annCHE[facility] NALGT9624-95-84 12:16:009.9[facility]annCHE[facility] YVAED9902-55-63 12:16:0024[facility]annCHE[facility] RMGVB6328-92-81 12:16:75381 [facility] KZAVB7678-80-22 12:16:004.3[facility]annCHEM PANEL 2016-06-12 12:16:17684Ilhrcmge HermannCHEM OCPPH2466-84-64 12:16:0028[facility]annCHE[facility] JPZXI9790-79-08 12:16:0083[facility]CHE[facility] PSRRJ4461-08-81 12:16:002.60[facility]annCHE[facility] BNHGJ9397-84-01 12:16:0014.3[facility] BWRBHDMPLK3899-65-45 12:16:0025.1[facility] ZyoikyoXDIYTUGRCF3808-74-09 12:16:00 9.0[facility] UbtbkqfVOCFWOIMPD1715-15-32 12:16:0051.3[facility]annHEMATOLOGY 2016-06-12 12:16:000.5[facility] IpcihzwLODYCXPZXN4123-46-90 12:16:001.4[facility] ZkhifxkZXOIKCYKGW0942-64-13 12:16:000.6[facility] UtethszSLLWAZZREI9171-16-55 12:16:000.1[facility] DoonkbzROBAMVJYKA1787-42-99 12:16:002.8[facility] RQAWIITJOQ2754-53-63 12:16:002.7[facility] JxkkmptIXXQEQGKVI8271-05-88 12:16:00 11.9[facility] KtafgctJXAIADXYVJ1255-00-03 12:16:001.05[facility]annHEMATOLOGY 2016-06-12 12:16:00* Test Item Value Reference Range Interpretation Comments PTT (test code = PTT) 35.5 s 22.9-35.8 [facility] AajsiadUDUROKTJRY2433-28-78 12:16:00* Test Item Value Reference Range Interpretation Comments PT (test code = PT) 13.9 s 12.0-14.7 [facility] WpvikzjSPACLODXAI3273-25-36 12:16:008.1[facility]annHEMATOLOGY 2016-06-12 12:16:0031.8[facility] OigmewaOGTSBDZHYP3345-61-84 12:16:24305Koyjpoge YaapnceLDPPPKCXJJ6449-70-59 12:16:0021.2[facility] OqqzpxdYHXFRQUYLN5979-68-87 12:16:00* Test Item Value Reference Range Interpretation Comments MCH (test code = MCH) 26.9 pg 27.0-31.0 [facility] OmccxssYLWTSVFGSG1184-04-80 12:16:0084.4[facility]annHEMATOLOGY 2016-06-12 12:16:0034.3[facility] CkdltitDUTFKYMYNO6551-06-41 12:16:004.07[facility] WrelgymEYGASPOYLO8041-50-12 12:16:005.5[facility] NmsmxvuPHJNDAYFSO6585-94-57 12:16:0010.9[facility] RjpbrldEUYWHPOGKI2984-58-81 22:31:807044Xuwtrpey [facility] GRNSAYXUAD2468-96-30 22:31:0023.3[facility]annCHEM IDXPW0212-82-76 12:14:0031 [facility]annCHE[facility] BMMJA8552-12-95 12:14:0014.4[facility]annCHEM PANEL 2016-06-09 12:14:15709Vfsmcnpn HermannCHEM DYPJB7016-33-22 12:14:82339Iftvynqd HermannCHEM FUCBM8339-69-95 12:14:0020[facility]annCHEM ASLKY9592-42-16 12:14:002.30[facility]annCHE[facility] JCXAV5311-91-53 12:14:0084[facility]annCHEM RSMQZ2045-64-61 12:14:009.4[facility]annCHEM BGJRL5934-05-47 12:14:003.4 [facility]annCHE[facility] AKXUK5567-93-82 12:14:0022[facility]annHEMATOLOGY 2016-06-07 12:03:006.1[facility] WrsumjfUJXQYSQTLS4053-67-10 12:03:008.5[facility] BhehmaiJBDNVKFUUC0166-47-87 12:03:000.8[facility] ElfvhymSOMDNUMVYW5181-93-72 12:03:005.8[facility] CabiaoeUFAWXNGDVM0136-00-38 12:03:002.4[facility] KUXMTPMFLB6907-15-37 12:03:000.2[facility] MzuljwiRGZNTFEZAW4491-13-62 12:03:000.5 [facility] EzsongyKZUVLGHPGW4771-69-61 12:03:001.6[facility]annHEMATOLOGY 2016-06-07 12:03:0018.0[facility] PgbxlthLHCTRXUJMU0981-06-70 12:03:0065.0[facility] WzarojsLNNZLDTWOM9415-92-55 12:03:84446Hambiuyo OlkfwrvLUHSDWFERI9628-58-84 12:03:0022.0[facility] IwwgawiLZVLTXHQTF4007-86-99 12:03:0031.6[facility] APBRRWJIPC3350-40-15 12:03:0032.5[facility] EoqkcpcYLRRYEGPSE7613-86-50 12:03:00* Test Item Value Reference Range Interpretation Comments MCH (test code = MCH) 26.6 pg 27.0-31.0 [facility] MpoqozgPHICZTXUAX5210-12-24 12:03:0081.8[facility] HermannHEMATOLOGY 2016-06-07 12:03:007.9[facility] AwtmnkdAEHHUNDHHX5745-78-11 12:03:0010.3[facility] HtoxdwyGCCBLZKPCQ4719-96-39 12:03:003.86[facility] ItfexdwFZIITLFEGQ6485-56-82 12:03:009.0[facility] HknfpdyIIYUZTFLBE1939-88-87 00:04:8074661683Ijixkxij [facility] EEQQZHXKJP5250-87-91 00:04:0018.9[facility] GhthqglHNUCBORGPM7594-13-61 23:51:00 58470577Bfdcjmpr EdrreflKQONKBUQRW5277-61-29 23:51:0029.3[facility] NJEPBTGAUE4644-93-29 10:47:0018.4[facility] FnwkkykXHPMCGPQDE7239-68-25 10:47:00 61.2[facility] SrvmmsaEWFMDAGNKB0289-23-40 10:47:008.7[facility] HermannHEMATOLOGY 2016-05-31 10:47:002.4[facility] XbgapidURUDSTTQTM3155-25-52 10:47:009.3[facility] QjnwevpZAEMDCCTGT9946-43-70 10:47:006.0[facility] KcgyztsOSOSNMWTOL4726-15-71 10:47:001.8[facility] XfaigxhYDLQGQNCMP3502-85-04 10:47:000.9[facility] RCTSNPQBUO0474-69-36 10:47:000.2[facility] BbachohHMEWRPXYIR7225-60-78 10:47:000.9 [facility] VmekiegJBANMEPXFJ4234-83-45 10:47:009.7[facility] HermannHEMATOLOGY 2016-05-31 10:47:009.8[facility] QcbbhlhCEVQENHCNJ0358-08-24 10:47:003.57[facility] ZexvdaeJVGDJYMZLC3828-16-18 10:47:0022.3[facility] HefripkECHAKVCYPQ6957-76-90 10:47:00* Test Item Value Reference Range Interpretation Comments MCH (test code = MCH) 27.2 pg 27.0-31.0 [facility] VdcptjaPIZPKOQFBR8329-96-76 10:47:0033.3[facility] HermannHEMATOLOGY 2016-05-31 10:47:0029.1[facility] AyhmshmSFLKGJNDUK0287-86-98 10:47:0081.5[facility] PcbpyhzEYXLPPQVFE2281-33-02 10:47:007.5[facility] LenvpnmSDBXIDSNSA3352-45-92 10:47:43846Pvkkxhmx KbbwmboHMAZEIZOFI9103-49-19 18:55:00Normal (05/28/16 12:55 PM)[facility] EptmgszSDJZVMJDEA3452-02-88 18:55:00Normal (05/28/16 12:55 PM) [facility]annCHEM NZDYZ2778-32-61 12:07:0027[facility]annCHEM PANEL 2016-05-27 12:07:002.60[facility]annCHEM VARQR8408-99-81 12:07:0020[facility]annCHEM JMNDB1573-88-93 12:07:0075[facility]annCHEM GCHTH8854-74-69 12:07:58811Dewwsskn HermannCHEM TDPOZ4380-51-43 12:07:0022[facility]annCHEM MSPPN0711-21-53 12:07:80639Mtcnybdn HermannCHEM LLANR7817-78-47 12:07:0015.0 [facility]annCHEM LNPPV9957-38-09 12:07:008.5[facility]annCHEM PANEL 2016-05-27 12:07:003.0[facility] LcvndekWMBGSJOGIJ4185-02-42 14:58:0019.4[facility] UqccuueAEZWQHOJTNDN5408-39-79 09:40:80263Dvochbee XzxdrnlBFBRIBXQQVLA8553-70-99 09:40:76417Aszmxwzt YshwybeDTNTRBAZIOPZ5232-40-84 09:40:009.0[facility] UDVDJBQNKZXH1960-51-38 09:40:003.3[facility] MumfjwzRCWAHDARPKBF1154-71-10 09:40:0028[facility] ViyjrwyQYUSERPEAPEW5230-83-16 09:40:0020[facility] HCSVCWXLMVPZ7731-96-71 09:40:0016.3[facility] OhkoxsnJDGSORUPPZPI1177-52-11 09:40:0022[facility] OkmjfgsSAIRKUKXEBKM2701-76-87 09:40:002.56[facility] BKXWQOFGFOQH4338-57-61 09:40:0087[facility] AnmkjggYCIBHIVLUSKR3013-77-98 10:45:00 16.5[facility] BftagatQXHTUMKYCNOX6195-19-06 10:45:13121Kprljhpo [facility] OSEZYBQYBXHD3585-35-07 10:45:003.5[facility] CtzymhvKOGTFCWQOFHU2630-33-24 10:45:15102Ftbmbqko RqsvayrYQDBJRBJHDIS3872-19-13 10:45:0022[facility] XWIAREDWLFXG2517-00-26 10:45:008.8[facility] CsksghwDMSLCECGABBD2502-69-13 10:45:0090[facility] MtrqycuJQWLCPEQEKGM6312-53-55 10:45:0025[facility] CCRSMOFNLTTZ9908-95-56 10:45:002.81[facility] HfvvkpmZFFCKRBBAVUF9710-77-86 10:45:0025[facility] AkqntqhSOJHTJSNHA4651-94-10 10:45:007.3[facility] YJUUZBMWFI1503-44-47 10:45:0021.6[facility] FynzkivULEUDAJOAX1491-15-54 10:45:00 635[facility] ZjrsoneUFBDTVYRMU1219-33-83 10:45:00* Test Item Value Reference Range Interpretation Comments MCH (test code = MCH) 26.1 pg 27.0-31.0 [facility] FqteuntABPQGOEOIN3003-91-24 10:45:0032.5[facility] HermannHEMATOLOGY 2016-05-24 10:45:0029.3[facility] TbubjpaXLSPELEUMV1827-02-26 10:45:0080.4[facility] WckznwuPHRKOIJPLZ0852-42-47 10:45:003.64[facility] AtjssucCRIPZFKCBS6434-86-08 10:45:009.5[facility] EptynryZITCBGYZNR7056-76-86 10:45:0010.0[facility] ODBGRZDAMC0027-11-49 10:45:009.1[facility] YiktphtZGJOZDYTCM3676-77-40 10:45:007.5 [facility] RcneppvJGFOKQJMCO9126-15-51 10:45:0015.1[facility] HermannHEMATOLOGY 2016-05-24 10:45:0066.6[facility] VgogeyuIESFOPVWUA9144-37-04 10:45:001.7[facility] UckqrkyVXNOTIODSA7135-19-73 10:45:006.7[facility] JpzjrbtWMJIZNDRIM4559-72-94 10:45:000.7[facility] UkmzkcqYKVGIMXISC1454-93-52 10:45:000.9[facility] YQYUMLRLYQ9728-91-04 10:45:001.5[facility] SqqevopGRZTQDPZBB8456-41-63 10:45:000.2 [facility] QaufbdbRSDOKFFCRD5657-52-73 10:45:0018.2[facility] HermannTOXICOLOGY 2016-05-23 10:01:0018.8[facility] HermannCHEM EZIYN5625-75-03 10:17:000.16[facility] VxycnywZZCCWVLDTK2114-47-05 10:17:007.3[facility] OhljknmYOGSRDEKNP0326-60-64 10:17:00* Test Item Value Reference Range Interpretation Comments MCH (test code = MCH) 25.3 pg 27.0-31.0 [facility] FyjvjxxKLNZFOZOFV7160-43-27 10:17:0031.2[facility] HermannHEMATOLOGY 2016-05-22 10:17:76075Lgrbzehj MmkzoxoEIWAJLBZLX4991-38-96 10:17:0021.6[facility] UsjtivkNAWHCGRWPO3523-63-35 10:17:0080.9[facility] FqjlppwDFDFSVQIDB8619-70-11 10:17:0028.6[facility] XwzcgvnBNJKNUCOLU8738-85-40 10:17:008.9[facility] REDDELRVRK5616-01-03 10:17:003.54[facility] VhpfcmsTMEAWUFBOE5524-32-74 10:17:00 8.9[facility] OwdloaaFBRSMQXUFL5222-88-47 10:17:000.2[facility] HermannHEMATOLOGY 2016-05-22 10:17:000.9[facility] NjpdzifPYWOTVQFOS5587-87-34 10:17:0010.1[facility] FsyboucEFBIWGGKTO8662-95-28 10:17:005.4[facility] LebhynaRNMCJRCPYY4311-46-96 10:17:001.9[facility] WzdjwmvQQWABFPBZD4374-41-42 10:17:000.9[facility] MOPZHINCFR7940-49-27 10:17:001.6[facility] GisadbfFUMVVMJUXR0750-55-46 10:17:009.6 [facility] RxaxlpdLCPZFTBWGZ5632-69-67 10:17:0017.6[facility]annHEMATOLOGY 2016-05-22 10:17:0060.8[facility] BczathwAFJTWJTHEB7598-34-88 10:17:00Normal (05/22/16 4:17 AM)[facility] CoczlwjRXZJFBZAJQ0068-37-28 10:17:00Normal (05/22/16 4:17 AM)[facility] CgclgueSXTLVKVSEI3975-32-98 10:17:0043.6[facility] HPOJRBIJVX0704-98-25 11:47:007.3[facility] CcealnwYDBSHTKWDD3302-98-08 11:47:00 4.06[facility] HkrneuzZMQTSQGZJG1592-34-28 11:47:0010.2[facility]annHEMATOLOGY 2016-05-21 11:47:0010.2[facility] LgutmriFKYFMROVAN4064-69-27 11:47:70180Kcboujiz JzbnqgtAKPDMWGLRI8945-50-70 11:47:0022.3[facility] YctnnaiRWIKZWOFYL5042-14-88 11:47:0031.2[facility] AwsivlvOBVWWXFJCL4638-50-12 11:47:0080.6[facility] ADMILJHLRK6872-44-40 11:47:00* Test Item Value Reference Range Interpretation Comments MCH (test code = MCH) 25.1 pg 27.0-31.0 [facility] MocplxoHSBSKRSPEC1037-21-86 11:47:0032.7[facility]annHEMATOLOGY 2016-05-21 11:47:000.1[facility] PkdrqvxUKNIKPAXVR5938-31-08 11:47:007.7[facility] RrgbsjiXQEHPXNXQW1472-56-54 11:47:001.4[facility] IpknansZDHUAYCYAA7809-59-48 11:47:000.6[facility] UqgoosvDRJBDVVNIH1636-13-48 11:47:000.5[facility] OZDZGBDXSE8509-10-34 11:47:004.5[facility] GgiuixzFZTXVTRUAK4792-06-36 11:47:001.2 [facility] RcnojkyKGUKWBSLJA0632-57-36 11:47:0013.3[facility]annHEMATOLOGY 2016-05-21 11:47:0074.9[facility] MmsvvwsNAGUQRCQUJ3062-16-06 11:47:006.1[facility] QmusnzeXZFINTHYIW4588-73-44 11:43:00Normal (05/20/16 5:43 AM)[facility] XYOTIQCJEY3620-97-32 11:43:00Normal (05/20/16 5:43 AM)[facility] HermannIMMUNOLOGY 2016-05-20 11:43:0022.1[facility]annCHEM YQEOE8544-63-95 10:53:000.8[facility] HermannDRUG NMZZVF8144-85-95 19:33:00See Note (05/19/16 1:33 PM)[facility] SKSCVW4686-24-77 19:33:00Negative *NA*(05/19/16 1:33 PM)[facility] HFZVHL3111-68-23 19:33:00Negative *NA*(05/19/16 1:33 PM)[facility] TOTHUB5973-31-36 19:33:00Negative *NA*(05/19/16 1:33 PM)[facility] GJGXEU8918-97-36 19:33:00Negative *NA*(05/19/16 1:33 PM)[facility] GPBFKO2124-43-14 19:33:00Negative *NA*(05/19/16 1:33 PM)[facility] JQKSFH6971-00-56 19:33:00Negative *NA*(05/19/16 1:33 PM)[facility] DR[facility] LGDESC5185-03-22 19:33:00Negative *NA*(05/19/16 1:33 PM)[facility] SMUXFL8911-03-63 19:33:00Negative *NA*(05/19/16 1:33 PM)[facility] NJSISJ6600-78-60 19:33:00Negative *NA*(05/19/16 1:33 PM)[facility] URINE AND QUJAG1180-18-44 19:33:007[facility]annURINE AND TPEVQ8948-78-79 19:33:00Negative (05/19/16 1:33 PM)[facility] NARJX3165-91-09 19:33:00Negative (05/19/16 1:33 PM)[facility] AND PWNYX2256-52-66 19:33:001[facility] AND AVBGX5757-22-78 19:33:00Clear (05/19/16 1:33 PM)[facility] AND HOYYY4685-88-92 19:33:00Light Yellow *NA*(05/19/16 1:33 PM)[facility] AND PFFAK6351-36-38 19:33:00Moderate *ABN*(05/19/16 1:33 PM)[facility] OOGEM4418-10-17 19:33:00 Negative *NA*(05/19/16 1:33 PM)[facility] AND PQIFZ8361-34-07 19:33:001.009[facility]UR[facility] AND ACOPT0344-82-85 19:33:006.0[facility]annCHEM ZIDST1806-99-07 11:14:004.5[facility]annCHEM KDPIW2245-69-75 11:14:002.2[facility] HermannCARDIAC MTXTMYO6507-16-51 03:04:002.5[facility] CARDIAC TUEXGSL3685-88-08 03:04:000.04[facility] HermannCARDIAC GJTEAEU8576-96-94 03:04:001.4[facility]annCARDIAC ICRNGKL1512-26-52 03:04:0057[facility] CARDIAC PRSFNNT7287-67-97 03:04:0047[facility]annCHEM OQJTP1227-07-80 03:04:0011[facility]annCHEM RZJHE0259-58-95 03:04:000.5[facility]annCHEM ZTAUJ0984-99-53 03:04:005.9[facility]annCHEM JTZFE1078-92-10 03:04:50627 [facility]annCHEM GKBVH9150-91-86 03:04:000.2[facility]annCHEM PANEL 2016-05-19 03:04:003.0[facility]annCHEM EQYSD9391-41-06 03:04:008[facility]annCHEM NRITZ9427-17-28 03:04:008[facility]annCHEM NHLMH1316-52-99 03:04:008.9[facility]annCHEM DVUBR8716-57-03 03:04:001.2[facility]annCHEM HAVUX8819-85-21 03:04:000.21[facility] WykoxdaCBZQUXQQJF4466-44-30 03:04:00* Test Item Value Reference Range Interpretation Comments PTT (test code = PTT) 32.2 s 22.9-35.8 [facility] GxlejehOGGYVOBNZE9561-54-68 03:04:00* Test Item Value Reference Range Interpretation Comments PT (test code = PT) 14.3 s 12.0-14.7 [facility] EprvuyvKIOIDONNDO7467-16-72 03:04:001.09[facility] HermannIMMUNOLOGY 2016-05-19 03:04:57684.0[facility] HermannCHEM LBIWZ3201-74-63 08:51:008.9[facility]annCHEM LGBQC6736-58-40 08:51:27739Ychnubce HermannCHEM WXKPR5197-29-72 08:51:003.7[facility] HermannCHEM QXTCQ7280-61-81 08:51:79645Wmriopng HermannCHEM PVGXF7876-78-30 08:51:003.15[facility]annCHEM QWQNE2960-52-00 08:51:0036 [facility]annCHEM LBTAU0880-05-21 08:51:0082[facility] HermannCHEM PANEL 2016-04-28 08:51:0017.7[facility] HermannCHEM PPIVJ5955-69-23 08:51:0019[facility] HermannCHEM AFUNT6249-50-81 08:51:0022[facility] FmqqpwfSXFTUYFPHNZR0657-11-32 09:10:0016.8[facility] GsxoddsEDPSFPRNNHTJ6239-97-63 09:10:009.1[facility] UCUSEWUOGSAO5676-06-40 09:10:0022[facility] DhygxjrHITYDMECEOEQ5623-93-68 09:10:00 3.8[facility] NcqnqpxVOONOWUNGEJS2595-36-49 09:10:0039[facility] HermannELECTROLYTES 2016-04-27 09:10:80907Zdzdbpnb LugucdwHDXXNTGDOHJT9737-09-08 09:10:31828Bworxcxx VpvomphMRKSZFTFMMKH3386-51-31 09:10:0090[facility] RxusnctRHEZPINAYOOX1326-73-66 09:10:003.07[facility] EkwxdegFXAKBKQWUDHA0746-97-77 09:10:0022[facility] VVNLFIGAVV8018-33-49 09:10:0010.3[facility] DfnwtciLNBOBYQBGQ2289-57-87 09:10:00 0.6[facility] JsrutpsVIYNFYCVNB6501-69-62 09:10:001.5[facility] HermannHEMATOLOGY 2016-04-27 09:10:000.1[facility] EdpwpnlNIGGIXAMIV5910-56-79 09:10:000.3[facility] PgnmwfoOLKFOCNXPZ5483-65-13 09:10:001+ *ABN*(04/27/16 4:10 AM)[facility] ANQKUGXFLX1885-72-29 09:10:001.9[facility] AygsinrILLNZSNDNB4775-50-77 09:10:006.8 [facility] FapbbqvIXLTDJIQXR2729-63-45 09:10:000.9[facility] HermannHEMATOLOGY 2016-04-27 09:10:00Normal (04/27/16 4:10 AM)[facility] TkhakswCCLTCWDYJE4151-25-71 09:10:0011.6[facility] BxhjgygNDCUAPKHLF5789-67-63 09:10:0079.1[facility] SYZUTEBBAE4053-83-21 09:10:0013.1[facility] ZanepeoXAFXVEBKJT6610-47-55 09:10:00 26.4[facility] DgswnqiLCLSFYLGTY7461-12-64 09:10:0077.1[facility] HermannHEMATOLOGY 2016-04-27 09:10:003.42[facility] NznoexdLVGDDOJNIQ9911-22-18 09:10:008.6[facility] JbdovlsGTHJKTCZTN1734-10-98 09:10:18576Iwcgolrc JhhpoitKKWAGUEPAC3549-39-40 09:10:00* Test Item Value Reference Range Interpretation Comments MCH (test code = MCH) 25.1 pg 27.0-31.0 [facility] RkjglmoBBCATMSGFV1089-31-03 09:10:0018.5[facility] HermannHEMATOLOGY 2016-04-27 09:10:006.0[facility] JpaqdzuDQDETQFBPO0410-69-44 09:10:0032.6[facility] HermannDRUG OKVYMP9748-83-74 22:34:00Negative *NA*(04/26/16 5:34 PM)[facility]annDRUG TGJPWM5826-29-55 22:34:00Negative *NA*(04/26/16 5:34 PM)[facility]annDRUG TVJTNY3305-00-56 22:34:00Negative *NA*(04/26/16 5:34 PM)[facility]annDR[facility] XPMNGW4323-97-26 22:34:00Negative *NA*(04/26/16 5:34 PM)[facility]annDRUG MXXWOV0317-35-29 22:34:00Positive *ABN*(04/26/16 5:34 PM)[facility]annDRUG UMODAV6966-37-14 22:34:00See Note (04/26/16 5:34 PM)[facility] MMVYAR0396-63-48 22:34:00Negative *NA*(04/26/16 5:34 PM)[facility] THZTUH3998-13-39 22:34:00Positive *ABN*(04/26/16 5:34 PM)[facility] CARDIAC SJTNFCH0500-10-05 21:26:001.4[facility] JOUWXBS7834-55-57 21:26:002.1[facility] OQEZUVH4292-09-07 21:26:000.02[facility] ZUZPHPG2944-39-75 21:26:59925Dqnjuxwq HermannCHEM NZNYH7647-32-61 21:26:0044[facility] VZIZV4044-01-00 21:26:003.32[facility] KJTES9581-63-46 21:26:0021[facility] BQZIO3507-97-27 21:26:009.2 [facility] JEEHW1161-16-33 21:26:0018[facility] PANEL 2016-04-26 21:26:0090[facility] GBOJO2343-75-84 21:26:0020[facility] AZIJU4814-35-31 21:26:0018.4[facility] IARPG3456-84-25 21:26:0013[facility] AEIOD9002-85-35 21:26:006.1[facility] JFWSP6616-96-17 21:26:000.5[facility] FJABW8736-13-60 21:26:0014 [facility] LYSQV2413-75-09 21:26:81770Ovbhnpzj [facility]annCHE[facility] PANEL 2016-04-26 21:26:000.2[facility] LYPUP5383-36-34 21:26:004.4[facility] QBJTB5587-81-70 21:26:26508Irqkkajc [facility] TOPOF6158-94-61 21:26:69724Hlkbocgc [facility] RGTPW5082-62-69 21:26:003.1[facility] KSJIK8272-29-92 21:26:009.3[facility] XmgybmrORFWZSVGFE9811-91-84 21:26:001+ *ABN*(04/26/16 4:26 PM)[facility] AcwncngBJJKXDPXVL2516-64-85 21:26:0078.2[facility] SjlcgyiRHCVYTOAMR5523-18-59 21:26:000.7[facility] HwhtppxHWXINMCHJL7718-77-58 21:26:0013.9[facility] KwbnbopEWWDZDASQK0344-17-82 21:26:004.7[facility] KPQIEIZKYF1687-06-59 21:26:0014.3[facility] UxioanhQKSGCDVOGF5496-52-45 21:26:00 2.5[facility] DmynhlyGDNIEECSYA8734-38-55 21:26:002.1[facility]ann[facility]MATOLOGY 2016-04-26 21:26:000.8[facility] VgezpqsMQDTXIZSSY1471-54-88 21:26:000.4[facility] EraqtgtSFOQNDZHXG2853-93-61 21:26:000.1[facility] YdqlkyyNCQORZYTRO6999-14-17 21:26:00* Test Item Value Reference Range Interpretation Comments PTT (test code = PTT) 34.5 s 22.9-35.8 [facility] AdzjmtcELLPRKTPLP6778-03-03 21:26:008.7[facility]ann[facility]MATOLOGY 2016-04-26 21:26:003.49[facility] OwrivneNCWVRRGNTZ6490-33-16 21:26:0027.1[facility] JbxgdrqCNYLCDPKGD4215-36-97 21:26:0017.8[facility] PvtghtaCDGKHWUHBH4088-20-09 21:26:0032.2[facility] SkruhlsKTAMGTKQET3405-38-35 21:26:00* Test Item Value Reference Range Interpretation Comments MCH (test code = MCH) 25.0 pg 27.0-31.0 [facility] AygigapKXFWJEEDZN1313-77-20 21:26:0077.7[facility]Y 2016-04-26 21:26:006.2[facility] RaxkiyjGXUWYTRLRX1587-19-46 21:26:53767Cfgnawip HerpcscUINACRBZLV6439-83-35 21:26:0018.6[facility] AwymisgCREEJJYTHP2474-05-18 21:26:00* Test Item Value Reference Range Interpretation Comments PT (test code = PT) 14.2 s 12.0-14.7 [facility] MrsltvuJXAHMJUXRG2826-23-95 21:26:001.08[facility] 2016-04-20 12:14:00* Test Item Value Reference Range Interpretation Comments PTT (test code = PTT) 61.4 s 22.9-35.8 [facility] UZIT8285-85-87 11:15:00None Seen (04/20/16 6:15 AM) [facility] GUKT4221-67-49 11:15:0020.80[facility] CHEM 2016-04-20 11:15:0087[facility] ZjbcpxzOOBVZLAQZROG3193-10-59 06:40:0014.8[facility] VkngvoqCRBWIIGRHSIO2003-66-66 06:40:86166Mpoqyihg WwnjxxlWNFDRGXHYFVP1399-47-35 06:40:0022[facility] VyfjbjdFCCJSUKOBCUU5298-70-47 06:40:008.5[facility] ZKIBKVRUVUTE2753-22-56 06:40:002.1[facility] BpmnvpqZYRYDKQEZZFK6652-55-26 06:40:003.8[facility] PmjvbilEQYHFRPQMBMG3265-69-92 06:40:0029[facility] CZZCROJHETGX2506-88-73 06:40:16030Sgwjniwu ZcckamcENRIYWHXYWEY1374-14-76 06:40:0093[facility] VnqqeyiCYJPFQISHDNF1705-40-06 06:40:004.3[facility] XPWCQWHHLCXP5781-58-71 06:40:002.76[facility] PthlbngQSHQZEOLCHDU8750-91-59 06:40:0025[facility] WigdqrrOVPJPZLRPM0328-11-07 06:40:00* Test Item Value Reference Range Interpretation Comments PTT (test code = PTT) 44.0 s 22.9-35.8 [facility] BocyglvJSJAOZZUMY4725-25-40 06:40:000.2[facility] 2016-04-20 06:40:000.8[facility] WdmvztzHZJKAHZDCN5872-37-61 06:40:001+ *ABN*(04/20/16 1:40 AM)[facility] ElxbpbhZPQEFXDDMC9613-63-81 06:40:001.1[facility] PvzseymDEFCETCEUN9025-56-97 06:40:002.0[facility] DssyvxnSOHWOWAWYF9828-57-94 06:40:0011.1[facility] OcsphpuGJJUZTNQBE5284-87-07 06:40:001.0[facility] STBXFCCFLI5140-02-63 06:40:007.3[facility] DkoxoavKPEHXPFCLV2562-16-36 06:40:005.1 [facility] WjebmauUCLKULQESD9143-24-18 06:40:0013.3[facility]annHEMATOLOGY 2016-04-20 06:40:0073.3[facility] GaiwltcCKMMRZOFJJ8737-53-30 06:40:00Clumped (04/20/16 1:40 AM)[facility] UhpjkdfNOQQOBQQAM7898-77-29 06:40:72153Psvwrupq XyonhidKIXEYVZISB3058-92-72 06:40:006.5[facility] AjowswuAVKXMTUZIP9794-20-66 06:40:0017.2[facility] XxhwjxgFJRDXFKBLF3676-37-64 06:40:0031.4[facility] MXTOIRQCIY1948-37-22 06:40:0076.3[facility] MbxnetvSFGUSHMRTV3863-52-26 06:40:00* Test Item Value Reference Range Interpretation Comments MCH (test code = MCH) 23.9 pg 27.0-31.0 [facility] YlzuegaXWKEXOWPSO0953-60-11 06:40:008.3[facility]annHEMATOLOGY 2016-04-20 06:40:0026.5[facility] JrzkgaoOQBMTCYTZM6780-37-43 06:40:0015.2[facility] IofmwptUMXBLWLEFV5182-95-28 06:40:003.47[facility] VjllcbfFBCTOGBDZK4173-62-02 00:32:00* Test Item Value Reference Range Interpretation Comments PTT (test code = PTT) 57.7 s 22.9-35.8 [facility] HnkmgwsWMGZROMKZF5151-51-73 17:50:00* Test Item Value Reference Range Interpretation Comments PTT 1:1 Imm (test code = PTT 1:1 Imm) 40.5 s [facility] XyyusriRHIYNEONWG3407-32-79 17:50:00* Test Item Value Reference Range Interpretation Comments PTT Baseline (test code = PTT Baseline) 48.9 s 22.9-35.8 [facility] TpolbetJTDSHBVWOB1393-06-37 17:50:00* Test Item Value Reference Range Interpretation Comments TT Baseline (test code = TT Baseline) 16.0 s 15.0-21.1 [facility] VNTVP4524-00-58 09:45:004.0[facility]annCHE[facility] PANEL 2016-04-19 09:45:0030[facility]CHE[facility] ZDQDH7471-21-77 09:45:002.37[facility] LERYF5584-96-68 09:45:002.0[facility] OCGFV5603-51-19 09:45:0023[facility] INDDW8396-46-34 09:45:003.5[facility] PWTKB4881-09-04 09:45:12159Hkxczekh [facility]annCHE[facility] PWUOW3948-06-60 09:45:0028 [facility] BHPWU5127-41-11 09:45:85756Wnomevlb [facility]annCHEM PANEL 2016-04-19 09:45:0097[facility] PGCFL2339-42-33 09:45:008.8[facility] UIKSD2180-95-58 09:45:0015.5[facility] QBYXR6317-21-59 09:45:004.0[facility]CHE[facility] OPYSY4980-11-80 09:45:001.6[facility] FVIMOXBZVU3933-40-86 09:45:007.6[facility] VoxtvkdWIJADTSBPI4209-67-79 09:45:005.7 [facility] XtizvlkLSUXXPCPUM7650-93-16 09:45:001.0[facility]annHEMATOLOGY 2016-04-19 09:45:0072.5[facility] ZpfdomqABNTAAWXHJ4457-91-69 09:45:0013.2[facility] BifmhfsHUKNYQNDZW1990-66-60 09:45:001+ *ABN*(04/19/16 4:45 AM)[facility] YQYSIPXYJQ0648-70-58 09:45:000.2[facility] JzcqmenQCRAPLFKOO9622-04-17 09:45:000.9 [facility] BfqaplhGRXKPTMMZN7083-61-92 09:45:002.1[facility]annHEMATOLOGY 2016-04-19 09:45:001.2[facility] BodgshoPACCNUXAKA6747-86-78 09:45:0011.5[facility] WjpokqqPKXYVQHJJX7032-57-23 09:45:006.8[facility] NwpofbtSYKJWTQKPR2387-75-46 09:45:26081Bokvmhaj JjpqsryLQITDKHKTT1084-58-82 09:45:0031.8[facility] UHJFWIARNT6544-54-52 09:45:00* Test Item Value Reference Range Interpretation Comments MCH (test code = MCH) 24.2 pg 27.0-31.0 [facility] XrjonjqGLFENOBDOY8109-93-02 09:45:0016.7[facility] HermannHEMATOLOGY 2016-04-19 09:45:0023.8[facility] ZypwwunJDNOEYFVEZ7490-40-07 09:45:007.6[facility] EfqvoexMRVQOLZOFA0111-49-27 09:45:0075.9[facility] FsebdcbTTIDZUPTJU2140-94-54 09:45:003.13[facility] JqzxddlPDBWZGZAIY6272-46-31 09:45:0015.9[facility] CHEM CQOWX9652-24-91 12:20:0033[facility]annCHEM MMPUL1809-76-28 12:20:002.22 [facility]annCHEM VJATF9175-20-41 12:20:008.5[facility]annCHEM PANEL 2016-04-18 12:20:05133Ivbilynf HermannCHEM CLLBD9389-71-35 12:20:003.9[facility]annCHEM MMKON9039-20-89 12:20:0024[facility]annCHEM NWWXH7091-13-28 12:20:16386Zlrzcvsp HermannCHEM DYZRV6674-33-83 12:20:0027[facility]annCHEM YKPCS7565-77-61 12:20:0096[facility]annCHEM JWKKZ4219-03-73 12:20:0013.9 [facility]annCHEM HGDZS7359-84-99 12:20:001.6[facility]annHEMATOLOGY 2016-04-18 12:20:00* Test Item Value Reference Range Interpretation Comments MCH (test code = MCH) 23.8 pg 27.0-31.0 [facility] QoqovdaLGQTMUHJMK3202-71-33 12:20:0031.0[facility]annHEMATOLOGY 2016-04-18 12:20:0016.8[facility] KjwobkoWQZVFZEXIG8748-81-19 12:20:30834Ayugtskg BlzkehzDBLDTIWXBL3041-94-02 12:20:0076.8[facility] WeymulhQWICFCZQKH3732-54-47 12:20:003.57[facility] ZosqqmcGYOZKWBZFQ8100-80-20 12:20:0027.4[facility] IIYQMASEJC6063-67-11 12:20:0015.1[facility] XftsehyEGYNGISRID3617-20-83 12:20:00 8.5[facility] QvagayhIOOFCJSZJS2006-40-52 12:20:006.6[facility]annHEMATOLOGY 2016-04-18 12:20:00* Test Item Value Reference Range Interpretation Comments PT (test code = PT) 13.2 s 12.0-14.7 [facility] YbnijpbLZYRCFFTCF6775-79-06 12:20:000.98[facility]annHEMATOLOGY 2016-04-18 12:20:001+ *ABN*(04/18/16 7:20 AM)[facility]annHEMATOLOGY 2016-04-18 12:20:000.2[facility] YmbjwodQHHIELUGYY7465-80-41 12:20:000.8[facility] NebnqrqSHPQRCQCMS8671-40-64 12:20:001.0[facility] MxnddupAWGTZWKWIV4397-13-45 12:20:005.1[facility] ZuwydkmBRSBBOWMLN7235-13-64 12:20:0073.9[facility] ZMMAUIICIR5728-87-35 12:20:001.2[facility] ZgwvfwhSDAIQCGALJ3798-41-24 12:20:00 11.2[facility] JreeevfVYUCTWTJZT7968-76-64 12:20:002.0[facility]annHEMATOLOGY 2016-04-18 12:20:0013.5[facility] JaqmcmeJYIGIYBALW9899-13-61 12:20:006.3[facility]annURINE OGES4384-09-79 02:00:000-2 *ABN*(04/17/16 9:00 PM)[facility] URINE AUAV1515-32-09 02:00:0022.90[facility]annURINE VJBT8029-65-29 02:00:00 112[facility]annCARDIAC NGXBMDI3340-52-28 07:23:0039[facility]annCARDIAC IXGEWHX5506-46-02 07:23:000.09[facility]annCARDIAC EBPMAZI6528-33-23 07:23:00 <0.5[facility]annCHEM DGJRE7170-55-05 07:23:001.7[facility]annCHEM PANEL 2016-04-17 07:23:002.0[facility] HymrttgFQVFHHDFZA0385-03-43 07:23:00Normal (04/17/16 2:23 AM)[facility] UqxnigtLFOASQXZZX7084-63-35 07:23:00Normal (04/17/16 2:23 AM)[facility]annBLOOD BANK BBDDKYG9521-81-06 15:56:00Negative (04/16/16 10:56 AM)[facility]annBLOOD BANK PWGOETT4525-04-09 14:54:00Product available (04/16/16 9:54 AM)[facility]annCARDIAC OVGGHOV6880-19-42 14:11:000.09[facility]annCARDIAC QBSLGFJ0374-27-13 14:11:000.7[facility]annCARDIAC ENZYMES 2016-04-16 14:11:0039[facility]annURINE AND BFKGW0102-61-92 14:11:00Moderate *ABN*(04/16/16 9:11 AM)[facility] RXSHO0886-82-42 14:11:005.0 [facility] AND BHFZP7480-42-75 14:11:00Negative *NA*(04/16/16 9:11 AM)[facility] AND QGLZL3071-87-86 14:11:001.012[facility]UR[facility] AND FQAZM2697-95-63 14:11:00Clear (04/16/16 9:11 AM)[facility] NKWXQ0434-08-63 14:11:00Negative (04/16/16 9:11 AM)[facility] UGYBE2025-49-62 14:11:00Negative (04/16/16 9:11 AM)[facility] AND WYELM4139-16-89 14:11:005[facility]UR[facility] AND KEULD1467-42-67 14:11:001 [facility] AND PQOPT8851-25-64 14:11:0014[facility] HermannDRUG SCREEN 2016-04-16 11:27:00Negative *NA*(04/16/16 6:27 [...] 6:27 AM)[facility]annCHEM PANEL 2016-04-16 10:58:001.1[facility] HermannCHEM PALBA1959-16-06 10:58:0022[facility]annCHEM JAYDP5945-79-89 10:58:0011[facility]annCHEM YHZMF2734-98-41 10:58:000.1[facility] HermannCHEM JTNYW9023-32-26 10:58:02990Jiwghxqp HermannCHEM UOEQE2344-31-75 10:58:007.0[facility]annCHEM OUCPM4304-49-36 10:58:000.6 [facility]annCHEM CSYHL6880-34-18 10:58:000.5[facility]annCHEM PANEL 2016-04-16 10:58:000.5[facility]annCHEM IVAKG8265-87-55 10:58:004.6[facility]annCHEM EZQKN0056-87-75 10:58:000.21[facility] OywklimVPXBVVWMMI3887-84-84 10:58:00* Test Item Value Reference Range Interpretation Comments PT (test code = PT) 14.4 s 12.0-14.7 [facility] GfztkxqFHHXQHEFWC8017-00-40 10:58:001.10[facility]annCHEM PANEL 2016-03-12 21:46:0065[facility]annCHEM SONDZ9618-83-06 21:46:002.0[facility]annCHEM BIRJA6130-92-04 21:46:0035[facility]annCHEM ZGVFE2831-73-76 21:46:006.2[facility]annCHEM TDJDE1487-22-58 21:46:000.3[facility]annCHEM OXWSM1105-17-33 21:46:0013.7[facility] HermannCHEM DVBFN8204-46-56 21:46:0017 [facility]annCHEM WIXDN0412-72-35 21:46:000.3[facility]annCHEM PANEL 2016-03-12 21:46:70205Nzouiqiw HermannCHEM VFIDL4067-23-80 21:46:008.3[facility]annCHEM KIDRS9421-47-05 21:46:002.1[facility]annCHEM HIYOU6188-82-77 21:46:008.7[facility]annCHEM WLSKX3871-43-41 21:46:003.7[facility]annCHEM GXJKW1754-83-83 21:46:33557Jvvufrje HermannCHEM IHVTL7977-87-97 21:46:13491 [facility]annCHEM NXRJR3872-35-54 21:46:44659Xretliub HermannCHEM PANEL 2016-03-12 21:46:0012[facility] HermannCHEM AYZOH5990-91-76 21:46:000.70[facility]annCHEM XPOEZ8675-97-52 21:46:0024[facility]annCHEM NXYIK4370-70-88 21:46:0016[facility]annCHEM MLQOI5272-30-35 21:46:0026[facility]annCHEM PVYCA0755-51-28 21:46:75179Plsabdxn QpzplynTCUOLIUOIQ0733-17-77 21:46:0033.4 [facility] AyqoansZNRWJKKFRQ1024-58-20 21:46:0010.2[facility] HermannHEMATOLOGY 2016-03-12 21:46:0014.9[facility] LoywxkrILUOMMKBUA9880-70-42 21:46:007.0[facility] SnswfziRBLSBJBGCH7901-50-89 21:46:916412Sghqmbav OykcmcmPZMUGYCUHY1554-44-36 21:46:0019.8[facility] BdauutrTLRTNQGWVA8531-43-22 21:46:003.76[facility] GSRPQNCIAS9021-35-33 21:46:0081.2[facility] TotaajuFYDODZJKDC4941-17-86 21:46:00 30.5[facility] MpkeeoqUOLDNJEOJJ7832-41-36 21:46:00* Test Item Value Reference Range Interpretation Comments MCH (test code = MCH) 27.1 pg 27.0-31.0 [facility] AjyljubQVWLQZPNHK5112-00-37 21:46:000.2[facility] HermannHEMATOLOGY 2016-03-12 21:46:000.1[facility] EruazcpPBWRNBVGDO4373-90-37 21:46:000.8[facility] GiolwbsEOBVPUEFSJ2758-90-06 21:46:0017.0[facility] RqwvwrwNHPHTPPQOL4474-88-00 21:46:001.7[facility] UqvljciCIUFCGNPGY7430-16-77 21:46:000.4[facility] XSFHJRHUAA5670-18-16 21:46:001.2[facility] GrzxrzwLKGFKCRFJK8151-08-71 21:46:004.1 [facility] NiqhxuzFOROZPFNAC8432-27-41 21:46:0085.9[facility] HermannHEMATOLOGY 2016-03-12 21:46:008.4[facility] UoygjvgREAPZZQQXE4725-36-46 21:46:00Normal (03/12/16 4:46 PM)[facility] ZycvuxiKLBSLBKKPH6540-78-34 21:46:00Normal (03/12/16 4:46 PM)[facility] RisowzoWDHQABRUPJRT5322-50-91 09:54:0013.3[facility] OWUCFAZSKDQO6748-96-67 09:54:35860Esezyvyp YssgdpyZMYGPFZOHGTH9888-47-65 09:54:008.6[facility] NltmnzzGUSLNAPMSPGR6423-34-47 09:54:0026[facility] BLFFXCCGCQGO5229-38-10 09:54:0099[facility] PjehievRNVJWVGQDMOV2787-84-23 09:54:00 134[facility] ToprfdiBLENTVAFMAND1128-96-54 09:54:0013[facility] HermannELECTROLYTES 2016-03-07 09:54:004.3[facility] IkzguxpATMXLLFYLBKH0874-25-16 09:54:000.74 [facility] QzdvssjBWIFTRVUGAVD6994-42-71 09:54:20632Pgbmtydl HermannHEMATOLOGY 2016-03-07 09:54:06728Zgjbnwcy TxhsfgtDMOBDTUOHB2059-17-24 09:54:0014.6[facility] ZeimapqQGZEZQCDZO4995-90-39 09:54:0031.7[facility] BgkogtdDSPYLBUIIP9105-65-06 09:54:0010.6[facility] BdcvonoUOVGFNFDUV9673-93-52 09:54:007.0[facility] WLLJJMHGJF0418-75-51 09:54:00* Test Item Value Reference Range Interpretation Comments MCH (test code = MCH) 27.3 pg 27.0-31.0 [facility] UmlusqjPHJNNEIKGC2661-97-46 09:54:0081.6[facility] HermannHEMATOLOGY 2016-03-07 09:54:0033.5[facility] XvycjpiSCDLIFZJUA7458-25-37 09:54:003.89[facility] GjkeuzzMMERCXVGMF0329-85-99 09:54:0022.2[facility] KgowsdbYOEVPAJXWD4133-64-08 09:54:00Normal (03/07/16 4:54 AM)[facility] DktojkuKQCZSASFAJ2737-61-96 09:54:00 Normal (03/07/16 4:54 AM)[facility] XpusbldCTSGJKHDGB5386-67-95 09:54:0018.6[facility] EtlwiriEKDJQDRYUR6604-83-99 09:54:000.1[facility] HdteyhvHHVQEIUTZY7464-65-46 09:54:0084.1[facility] LjssqctYGGBMZCNHE3521-94-33 09:54:002.0[facility] GCJPMTXASQ7789-36-87 09:54:000.8[facility] IcmyikzKXSRGJBMQA7626-17-48 09:54:000.7 [facility] WeebislFUTVOIECFY4104-11-69 09:54:008.9[facility] HermannHEMATOLOGY 2016-03-07 09:54:003.6[facility] TasyrnlIPGWUZLQPH3718-22-24 09:54:003.3[facility] TgeozabRKOOUTJYDN3068-08-92 09:54:000.0[facility] HermannCHEM JVAXQ3971-08-04 13:40:21484Rzsfnhnr HermannCHEM HCCQO0443-23-99 13:40:000.70[facility] HermannCHEM QMFJD6383-86-72 13:40:0013[facility] HermannCHEM MUXUX4037-14-51 13:40:008.5 [facility] HermannCHEM SSLBU6825-16-95 13:40:0026[facility] HermannCHEM PANEL 2016-03-06 13:40:004.6[facility] HermannCHEM KESYB1134-28-99 13:40:0099[facility] HermannCHEM LPZGZ8392-54-36 13:40:0089[facility] HermannCHEM NYUBS2422-10-54 13:40:67113Ogrdoprj HermannCHEM GCPPB8393-63-87 13:40:0015.6[facility] TGPHCYOGPZ1099-42-62 13:40:0032.6[facility] TjcvaodPYXWQOGPSJ3964-02-30 13:40:00* Test Item Value Reference Range Interpretation Comments MCH (test code = MCH) 27.0 pg 27.0-31.0 [facility] EpehazhBVENIVHXLR9259-72-82 13:40:0081.4[facility] HermannHEMATOLOGY 2016-03-06 13:40:0010.8[facility] KdgpvrrHWRCWMOMDL9886-57-95 13:40:91860Cbttdrwk ArjyhuoMEOYHZCQOT3478-45-84 13:40:007.0[facility] QmomfsaOJSNGPLBWU3500-52-16 13:40:0033.2[facility] EmisudlKWBVWGKJAH6021-73-56 13:40:0014.4[facility] OXGXOLHFHA7184-26-32 13:40:0020.8[facility] TkdtqvvHMZJZIVRLJ4787-74-68 13:40:00 4.01[facility] ArqmnjwWJMLHEBRKI6603-64-83 13:40:000.1[facility]annHEMATOLOGY 2016-03-06 13:40:0082.1[facility] EiofrrvFWLWLXNIHY0886-27-32 13:40:00Normal (03/06/16 8:40 AM)[facility] TmkbncjVAWRBBKIJA4749-03-42 13:40:009.0[facility] ICGPKHDHXT1577-88-62 13:40:00Normal (03/06/16 8:40 AM)[facility]annHEMATOLOGY 2016-03-06 13:40:000.8[facility] EqtmmazOQBOJLUVKO7202-67-27 13:40:001.0[facility] GohwepgSNOPTORVQX9706-54-94 13:40:001.9[facility] WerjzudZAYRLHQSUE0445-17-34 13:40:0017.1[facility] GvdbadzOLBILHGNJE1851-91-25 13:40:000.3[facility] BTGMNBLUZZ5324-08-66 13:40:004.8[facility] HrqxbsuLJTPEPOFHG7219-73-94 13:40:003.8 [facility] GqokioaKOYXWLLUOIAJ0020-82-51 11:21:0011.7[facility] HermannELECTROLYTES 2016-03-05 11:21:80394Qwljgtrl VcgiltiBRCZSRDFBNMF6400-44-36 11:21:0095[facility] ZiodhfvSWGVSOOMNVNW7453-05-81 11:21:0014[facility] GjitkxfPDANHWKOWTSP4258-38-19 11:21:000.76[facility] TjmvrafWKFIWIOIXMVB5926-92-62 11:21:0027[facility] AYZNBWGGTVET9031-06-81 11:21:15644Unhyyncq XhrwinvMVGOGRQOCOEY7483-46-61 11:21:008.4[facility] GsfnfbbYFUOSIKTFYLC8178-67-80 11:21:09644Hbyxqtoc [place] BSYVEAXYQYUP5785-22-59 11:21:004.7[facility] MuzdjujCETJXNHTUX9527-81-73 11:21:00 2.3[facility] AekrwthTOFKEQVEEW5147-74-72 11:21:0015.2[facility]annHEMATOLOGY 2016-03-05 11:21:000.2[facility] JkmipyiMDIRDLTVHE4783-81-91 11:21:001.0[facility] NohzhsjBXDWNJZBPZ6569-01-06 11:21:001.3[facility] HgpjtasKSKSVBAHDP9284-13-92 11:21:0076.6[facility] PtpajlaCPSLYDDGEK5447-05-20 11:21:00Normal (03/05/16 6:21 AM) [facility] LvhgxzjUQJITNUIYX8340-94-51 11:21:00Normal (03/05/16 6:21 AM)[facility] PiubznwRSOOKHWSNT0409-41-86 11:21:0011.3[facility] GhuynrnZVXZGTSTMF5971-76-72 11:21:005.2[facility] DmelbgzOYPNEFOAYJ5913-46-78 11:21:006.7[facility] WDPHPQVBLC7530-26-73 11:21:0014.4[facility] ZleqeofPQFDSUMDPR4952-79-78 11:21:00 888[facility] SjlcvfnLJPFMSYCMB7155-25-26 11:21:007.2[facility] HermannHEMATOLOGY 2016-03-05 11:21:0010.4[facility] VehnobtUZTYVNMVMB8677-97-35 11:21:0031.6[facility] OfeexchUBHMWLZFKT4408-83-39 11:21:0082.4[facility] KozpqqjPYYSBUYEBC9728-79-22 11:21:00* Test Item Value Reference Range Interpretation Comments MCH (test code = MCH) 27.2 pg 27.0-31.0 [facility] FtgqoiiXTZUSTHJSQ5834-62-39 11:21:0033.0[facility]annHEMATOLOGY 2016-03-05 11:21:0019.9[facility] NqkznurYJGYZDRDNF3719-88-81 11:21:003.83[facility] NxxmsejGJEPXPJJPI6538-96-65 10:08:001.9[facility] JcobtpcJPPODLBJQB6812-17-88 10:08:00Moderate *ABN*(03/04/16 5:08 AM)[facility] BpwqsuuMOBRTCRDSK0741-19-29 10:08:000.1[facility] HermannCHEM BILTP2396-93-67 10:45:003.9[facility]annCHEM OPYYH9179-19-85 10:45:002.1[facility] PceedcmEXNRXYPSDZ6226-78-46 10:45:00>100 [facility] QxzvgnuIEZYYDVJNC9104-44-37 10:45:16406.0[facility]annCHEM PANEL 2016-03-02 09:56:001.6[facility]annCHEM SUNXW9996-82-19 09:56:0055[facility]annCHEM RBIBE8651-14-51 09:56:0025[facility]annCHEM LQPFD8121-60-45 09:56:000.5[facility]annCHEM RVVLD5278-46-44 09:56:007.3[facility]annCHEM YGXUS8927-23-56 09:56:68737Pfvugtdd HermannCHEM QAGQO1200-64-37 09:56:0016 [facility]annCHEM TWRTR8041-04-51 09:56:005.7[facility]annCHEM PANEL 2016-03-02 09:56:000.3[facility]annCHEM SAGCU3870-68-12 06:48:000.5[facility]annCHEM MAJYW1413-35-49 06:48:98348Wjppboeo HermannCHEM NIGMG6773-67-19 06:48:000.3[facility]annCHEM MQAGN0937-16-51 06:48:005.4[facility]annCHEM ROAZJ1045-58-46 06:48:007.2[facility]annCHEM YLYIP0850-23-98 06:48:0038 [facility]annCHEM UIUVX6995-04-59 06:48:0018[facility]annCHEM PANEL 2016-03-01 06:48:001.8[facility]annCHEM AXPXD0289-74-66 06:48:0087[facility]annCHEM BBESI2504-95-00 08:47:000.3[facility]annCHEM PMDHV3045-28-72 08:47:000.2[facility]annCHEM YTKFK7764-91-56 08:47:005.2[facility]annCHEM IIDYK8706-84-77 08:47:001.7[facility]annCHEM UHTSN0452-98-80 08:47:000.1 [facility]annCHEM FSLWU6207-59-18 08:47:006.9[facility]annCHEM PANEL 2016-02-29 08:47:27947Iqkosecy HermannCHEM KRZKX8056-48-84 08:47:000.3[facility]annCHEM QVWUH1813-56-79 08:47:0057[facility]annCHEM SOFHI0264-67-03 08:47:0087[facility]annCHEM ADSUR2502-40-10 08:47:54620Uirkkpbf [place] MOLECULAR YKTCSGBGUM3012-80-66 21:07:00Negative (02/28/16 4:07 PM)[facility]annURINE AND DVWDS0529-92-84 21:07:00None Seen (02/28/16 4:07 PM)[facility]annCHEM HKUJY3832-80-57 08:06:0010[facility] OgmimbcXIZXZWXPYB4119-94-41 08:06:00>100[facility] LozhvjvFABLYHVNXI4386-48-86 08:06:0010.4[facility] FMLYUQERLS9056-31-06 08:06:61349.0[facility]annCHEM MSLFM0193-70-15 09:25:00 2.1[facility] PvctmnsFISEBLRYWQ1659-79-28 09:25:00>100[facility] HermannIMMUNOLOGY 2016-02-27 09:25:009.9[facility] BlechdiOYECSPGDCI6364-96-07 09:25:00Negative *NA*(02/27/16 4:25 AM)[facility] IjjzgnqYCXMMDZFKM0967-75-89 09:25:74056.0[facility] SbqaojrOHWKPA6025-02-72 17:15:0063[facility] EvgmtzaBSOIVJ3555-18-21 17:15:0018 [facility] GkjbitzHLAXAS4223-63-60 17:15:0024[facility] UjsjrfuNKLFLS7248-40-94 17:15:004.38[facility] MmookgoIMXHHV1733-34-75 17:15:0088[facility] HermannLIPIDS 2016-02-26 17:15:08422Lpetpcvq GxkxqffOQJZAMQGRA9466-49-58 17:15:507922Fzhtsbtx LtpaedlFHLEHUMIFC1453-05-93 17:15:003.8[facility] HermannCHEM VDIUE4210-86-17 12:55:001.8[facility] HermannCHEM DLSIF1844-19-73 12:55:003.6[facility] HermannVIRAL - PLGQHYLW3230-43-06 12:55:00<0.90[facility] HermannDRUG GCCOZZ7110-65-51 18:10:00 See Note *NA*(02/25/16 1:10 PM)[facility] HermannDRUG MPBQFX1894-06-10 18:10:00 Negative *NA*(02/25/16 1:10 PM)[facility] HermannDRUG CCLYCL7862-88-48 18:10:00 Negative *NA*(02/25/16 1:10 PM)[facility] HermannDRUG KMZBZW2947-61-26 18:10:00 Negative *NA*(02/25/16 1:10 PM)[facility] HermannDRUG MHJMAT8722-88-48 18:10:00 Negative *NA*(02/25/16 1:10 PM)[facility] HermannDRUG CMDJUT7416-53-35 18:10:00 Negative *NA*(02/25/16 1:10 PM)[facility] HermannDRUG PWIGDU3685-80-28 18:10:00 Negative *NA*(02/25/16 1:10 PM)[facility] HermannDRUG VYQWUF2311-34-49 18:10:00 Negative *NA*(02/25/16 1:10 PM)[facility] HermannCARDIAC PBUGIMP8522-92-83 14:40:00 0.26[facility] HermannCARDIAC UBXPGYT1621-96-95 14:40:00<0.5[facility] CARDIAC VJZIHOO8222-97-86 14:40:0025[facility] HermannCARDIAC FWICJOF4128-28-60 08:23:000.31[facility] HermannCARDIAC ZDYYGJV2440-44-68 08:23:00<0.5[facility] HermannCARDIAC AWKEHAD3787-37-58 08:23:0026[facility] HermannCHEM LGLHE8423-77-83 05:39:001.0[facility] HermannBACTERIAL - ZHDXZOHI5972-03-07 05:20:00Negative (02/25/16 12:20 AM)[facility] HermannBODY VRKTAB8679-26-40 05:20:00* Test Item Value Reference Range Interpretation Comments Tube Num CSF (test code = Tube Num CSF) 1 1 [facility] HermannBODY SMFYXG3122-82-41 05:20:0067[facility]annBODY FLUIDS 2016-02-25 05:20:009[facility]annBODY RZYRMN8680-87-74 05:20:00Clear (02/25/16 12:20 AM)[facility] HermannBODY EXQKBC6681-72-37 05:20:006[facility]annBODY HJMPJB3117-44-53 05:20:0058[facility] HermannBODY FKXIXC1315-06-75 05:20:00 Colorless (02/25/16 12:20 AM)[facility]annBODY HSTXCQ6487-77-58 05:20:00 Colorless (02/25/16 12:20 AM)[facility]annBODY WCYMDW1414-49-11 05:20:0036 [facility]annBODY YTBJMT5253-26-83 05:20:0045[facility]annBODY FLUIDS 2016-02-25 05:20:0050[facility] HermannBODY BJTSQC2048-48-68 05:20:003[facility]annBODY CREPJW0844-41-60 05:20:001[facility]annBODY JJWJAE8058-93-44 05:20:00Colorless (02/25/16 12:20 AM)[facility]annBODY JODNVG3888-02-78 05:20:00Clear (02/25/16 12:20 AM)[facility] HermannBODY BOBYUC4193-95-12 05:20:00 Colorless (02/25/16 12:20 AM)[facility] HermannBODY GZGGTM7559-60-39 05:20:00* Test Item Value Reference Range Interpretation Comments Tube Num CSF (test code = Tube Num CSF) 4 1 [facility]annFUNGAL - PJCCFTQI5445-26-80 05:20:00Negative (02/25/16 12:20 AM) [facility] JymycmaVXUEQCFICR0766-32-85 05:20:00Non Reactive (02/25/16 12:20 AM) [facility] HermannMOLECULAR GSYNWRJXYO9686-40-00 05:20:00Not Performed 1(02/25/16 12:20 AM)[facility]MOLEC[facility] IFJCDNHSYA7427-83-75 05:20:00Not Performed 2(02/25/16 12:20 AM)[facility]annVIRAL - KZGDIZLC0128-61-04 05:20:00Negative (02/25/16 12:20 AM)[facility] BVSEC4297-91-54 01:41:00Trace *ABN*(02/24/16 8:41 PM)[facility] ZAERM2105-30-21 01:41:008 [facility] LELBV6349-53-70 01:41:009[facility] FGFVE6003-77-61 01:41:00Negative *NA*(02/24/16 8:41 PM)[facility] VRQIL4582-29-82 01:41:00Negative (02/24/16 8:41 PM)[facility] LIFTF9997-77-56 01:41:00Small *ABN*(02/24/16 8:41 PM)[facility] HLSAH5518-22-09 01:41:00Slight *ABN*(02/24/16 8:41 PM)[facility] EVYUI0548-90-70 01:41:00Yellow *NA*(02/24/16 8:41 PM)[facility] FBLRB6245-82-47 01:41:001.016[facility] CIQCM1472-69-56 01:41:00 6.0[facility]annCARDIAC WLNCZUT4000-97-87 00:01:0025[facility]annCARDIAC IPIKBPZ0438-91-25 00:01:000.33[facility] LqhslbkCCVWRTPATC2607-55-57 00:01:00<3 [facility] RelduyaVYNYJHUGBO9209-54-76 00:01:00<0.003[facility]annCHEM PANEL 2016-02-20 08:29:60842Yfuszuaw HermannCHEM CMLOL1053-96-47 08:29:008.3[facility]annCHEM AWNCZ5219-60-80 08:29:003.6[facility]annCHEM IRROG9223-28-44 08:29:0027[facility]annCHEM KIPEU4288-53-02 08:29:74730Mlmdqedb HermannCHEM ZWUWO4105-31-68 08:29:64422Taqwigmt HermannCHEM GAATI2268-85-11 08:29:000.48 [facility]annCHEM FREZP3154-05-02 08:29:007[facility]annCHEM PANEL 2016-02-20 08:29:0098[facility]annCHEM YEAWP2816-29-96 08:29:0010.6[facility]annCHEM IWBZR7401-38-57 08:29:001.9[facility] KoytctgLQPNHJFMAZ6394-17-32 08:29:0010.1[facility] VmnvpovXAKATDPLEX4941-44-52 08:29:0078.4[facility] RGNWERRLUW1730-36-38 08:29:0011.8[facility] DrnmrgmAVVUXMWGXC5162-33-64 08:29:00 0.7[facility] FxprvefPTJRQRYOVO9704-36-61 08:29:003.0[facility]annHEMATOLOGY 2016-02-20 08:29:007.8[facility] NeefkbtKCHFRPESLR0181-08-64 08:29:001.5[facility] JcbrgrdSRGBRPWHVJ2709-66-24 08:29:000.1[facility] UxhunugFLDFTQXFYL3011-09-05 08:29:001.2[facility] XobokvsYKYTVFWQKI1960-34-16 08:29:000.4[facility] YMRIQIAGUC4484-65-43 08:29:004.35[facility] EspmxuzIFJVLUESZD7723-03-15 08:29:00 15.1[facility] HadoxrdTSVCQPEOTD5412-73-94 08:29:0082.5[facility]annHEMATOLOGY 2016-02-20 08:29:0035.9[facility] TqjreflUPUAHYOZTB1051-60-60 08:29:0011.7[facility] MsnpmgtHHTSLEZUPH3530-08-45 08:29:0013.7[facility] LlzwbomWYLZUGJIWH0030-42-25 08:29:00* Test Item Value Reference Range Interpretation Comments MCH (test code = MCH) 26.9 pg 27.0-31.0 [facility] OolimjoAYIOBSTYDH2032-30-70 08:29:0032.6[facility]annHEMATOLOGY 2016-02-20 08:29:007.0[facility] QxanxuwKMRMAIMKJW5346-78-33 08:29:69871Oehlpbhm HermannCHEM BDQCQ2761-76-77 08:22:001.7[facility] LqxketcNRFPXRTKEKUH4815-20-53 08:22:11332Zihckgqd NtrlvzgQJGOCVDAKNRX1308-72-65 08:22:0026[facility] WQQPYLZSDEMZ2734-06-00 08:22:008.4[facility] WxnrqguMEBWTMQBBPJP9037-63-46 08:22:0010[facility] PzrjynuWMQXXORUFTET9835-75-64 08:22:000.56[facility] YZILDEFWBTNY4046-75-74 08:22:31234Jqrmugbq YxxeettQGIFFUJOKUVP9147-25-88 08:22:31070Heabcpbb RncakajEIZLNNNZUJWE7693-28-77 08:22:003.4[facility] HRSUKTBFUOMU4360-88-00 08:22:54715Fgvcfnxb TmskekwDIEBZOKABDBD9988-58-65 08:22:0011.4[facility] MgdmiamEWXTRMBJCU9706-78-49 08:22:0011.8[facility] WBUVFWOTWM2010-94-03 08:22:0036.5[facility] SlbvvrzHYMIQKSFPQ3983-18-15 08:22:00 4.38[facility] EetkroyXONVDJJMVP2742-93-44 08:22:0083.5[facility]annHEMATOLOGY 2016-02-19 08:22:00* Test Item Value Reference Range Interpretation Comments MCH (test code = MCH) 27.0 pg 27.0-31.0 [facility] FpscyzhHOPSOOONQV2421-84-97 08:22:0017.1[facility]annHEMATOLOGY 2016-02-19 08:22:007.2[facility] DhfozufULOTVOCPIF2075-46-65 08:22:0032.4[facility] KsxvkbtLJSQCZNHQM1240-43-88 08:22:0014.0[facility] GivkezqCZLUCYIQUZ5691-35-31 08:22:95799Ajfvveis JoxpvdzJJORFTKRNO9784-51-82 08:22:000.2[facility] MGYCEBWXSB5593-28-02 08:22:000.8[facility] KvncsfyPCUTXINTKJ1177-94-36 08:22:001.5 [facility] GriescuPFEYEXRLRP2084-84-96 08:22:0014.5[facility]annHEMATOLOGY 2016-02-19 08:22:000.5[facility] KkffciwXPIUTZUJKP4700-04-64 08:22:001.0[facility] SfxyfyyPHCJIPXUAT6055-89-95 08:22:004.7[facility] YpcdjhqAXHOMYGDEM3748-76-22 08:22:008.9[facility] ItfjgrgFPUNIKXBOZ1824-37-77 08:22:0084.9[facility] ACLIOYPEYK8978-24-93 08:22:000.1[facility] ApxxiaxTKLLVTYIRC2558-46-43 12:03:007.6 [facility] AfwohjqLATDTFCTWB7723-26-89 12:03:0013.8[facility]annHEMATOLOGY 2016-02-18 12:03:0032.4[facility] BkcastkNRUIWEVWWB6836-74-39 12:03:13932Bsgglijr QcntxqaBDYIZHIKTA1009-57-29 12:03:0038.7[facility] TxifbptNIWYLJGHYP6144-87-40 12:03:0084.1[facility] QmvvuqfOANVJVQAEU1369-08-50 12:03:00* Test Item Value Reference Range Interpretation Comments MCH (test code = MCH) 27.3 pg 27.0-31.0 [facility] ZcfftuyPLMZZHVIMJ8570-74-87 12:03:004.59[facility]annHEMATOLOGY 2016-02-18 12:03:0012.5[facility] VkrnyprLZLOETNJCR2981-49-73 12:03:0016.0[facility] MtiedteBSKRCCCDUE5341-52-39 12:03:000.1[facility] DctzrqlTRRWYBYZCH8397-09-63 12:03:000.4[facility] MqderkdXUKNNQKWYN0290-65-96 12:03:001.2[facility] NSZLWZNAIE1967-69-24 12:03:001.4[facility] CwvxjqzYIYSMSGFAB4782-46-57 12:03:00 12.9[facility] DucpgqjYIUZAJKTXS9329-44-51 12:03:000.9[facility]annHEMATOLOGY 2016-02-18 12:03:002.2[facility] TzhgevdWDBBVMJSOV0454-87-45 12:03:007.7[facility] XyxkmxkJLMJOLVHBW0240-47-91 12:03:008.6[facility] TymprsiKVGGOBCFXC8885-18-28 12:03:0080.6[facility] QlezomyXMDGKBJMTN4265-20-42 12:03:00Negative *NA*(02/18/16 7:03 AM)[facility] AzruxcyCZGDGMJJBH8324-65-57 12:03:00Negative *NA*(02/18/16 7:03 AM)[facility] XympdbdOXZGVFNDAD4754-67-52 12:03:00Negative *NA*(02/18/16 7:03 AM) [facility] VmbunhlZAMZUDMXSH2379-86-45 12:03:00Negative *NA*(02/18/16 7:03 AM) [facility] UeyxhkwICDVR8992-57-29 21:29:00Negative (02/17/16 4:29 PM)[facility]annBLOOD BANK QYOZWFY5575-08-62 20:42:00Negative (02/17/16 3:42 PM)[facility]annCHEM MBVLQ0826-61-32 15:07:000.9[facility]annCHEM FMFWN4593-64-16 15:07:000.10[facility] NvcdxpvWYUOIDLXRA0020-14-46 15:07:00* Test Item Value Reference Range Interpretation Comments PT (test code = PT) 14.6 s 12.0-14.7 [facility] AriqdmjDSYGDFFDZY8249-87-96 15:07:001.11[facility]annHEMATOLOGY 2016-02-17 15:07:00* Test Item Value Reference Range Interpretation Comments PTT (test code = PTT) 32.8 s 22.9-35.8 [facility] SjfnsnePGBGBMBEKN4379-32-32 15:07:00Negative *NA*(02/17/16 10:07 AM) [facility] DFLYM9418-73-35 08:45:00Negative *NA*(02/17/16 3:45 AM) [facility] DHJFO4729-66-64 08:45:00Trace *ABN*(02/17/16 3:45 AM) [facility] MFZSA3540-65-33 08:45:00* Test Item Value Reference Range Interpretation Comments UA Spec Grav (test code = UA Spec Grav) 1.025 1 [facility] EWYXP0497-97-81 08:45:00* Test Item Value Reference Range Interpretation Comments UA pH (test code = UA pH) 6.0 1 5.0-8.0 [facility] [facility] MGWLD9533-40-47 08:45:00Trace *ABN*(02/17/16 3:45 AM) [facility] MRHVI5863-16-42 08:45:00Negative (02/17/16 3:45 AM) [facility] ROTQQ9573-45-94 08:45:00Trace *ABN*(02/17/16 3:45 AM) [facility] GMVQD5149-87-97 08:45:002.0[facility] TGMVJ0680-52-19 08:45:00Clear (02/17/16 3:45 AM)[facility] STOOL 2016-02-17 08:45:00Yellow *NA*(02/17/16 3:45 AM)[facility] 2016-02-17 08:45:00Negative *NA*(02/17/16 3:45 AM)[facility]ann[facility]M PANEL 2016-02-17 07:40:0091[facility] IDYYV4033-62-46 07:40:0046[facility] BXZNA0883-11-82 07:40:005.8[facility] IGJKM6508-69-27 07:40:0015[facility] CYUAV1018-16-18 07:40:000.3[facility]CHE[facility] NXBRL4483-38-73 07:40:008.8[facility]annCHE[facility] VTIKP5648-94-40 07:40:00525 [facility] POIQW3762-90-65 07:40:0025[facility]annCHE[facility] PANEL 2016-02-17 07:40:000.2[facility]CHE[facility] WKSXQ9289-43-99 07:40:23710Cahyvmnb HermannCHEM QSLAF9039-91-91 07:40:0030[facility]CHE[facility] CYXSR0736-71-33 07:40:008.5[facility]CHE[facility] WGRRT5664-47-96 07:40:007.8[facility]CHE[facility] GKSGT8277-55-85 07:40:002.0[facility]CHE[facility] WKIKP0147-43-60 07:40:0040 [facility] BPUZV4604-31-88 07:40:000.67[facility]CHE[facility] PANEL 2016-02-17 07:40:75072Jyhfwvxn [facility]annCHE[facility] BLAHV2025-52-20 07:40:003.8[facility]CHE[facility] TOIKP2419-28-25 07:40:0094[facility] NZAUM4070-98-03 07:40:70920Ysjilfjr [facility]annCHEM AOUNV9079-59-19 07:40:0010[facility] EEKBEG2333-41-41 08:15:00Negative *NA*(02/14/16 3:15 AM)[facility] STVSYL2643-33-79 08:15:00Negative *NA*(02/14/16 3:15 AM)[facility] CGIGKT8276-08-06 08:15:00Positive *ABN*(02/14/16 3:15 AM)[facility] MHHSZB1133-99-70 08:15:00Positive *ABN*(02/14/16 3:15 AM)[facility] VNAIDJ4425-94-65 08:15:00Positive *ABN*(02/14/16 3:15 AM)[facility] WBXHXW5800-97-03 08:15:00Negative *NA*(02/14/16 3:15 AM)[facility] ALMRAR2493-53-04 08:15:00Negative *NA*(02/14/16 3:15 AM)[facility] ADTTQE7153-57-50 08:15:00See Note (02/14/16 3:15 AM)[facility] GCXUC8252-94-97 08:15:00Negative (02/14/16 3:15 AM)[facility] WCYQF9033-44-53 08:15:004.0[facility] CMXWQ2890-51-22 08:15:00 Trace *ABN*(02/14/16 3:15 AM)[facility] DBEDP9460-46-47 08:15:00 Slight *ABN*(02/14/16 3:15 AM)[facility] HOWBW5434-11-98 08:15:00 Negative *NA*(02/14/16 3:15 AM)[facility] VAVGV4484-40-11 08:15:00 5.0[facility] RRDQC2405-00-58 08:15:001.028[facility] IJUQC3189-57-75 08:15:004[facility] LJBII0106-88-18 08:15:005 [facility] ZENND4323-72-93 08:15:00Small *ABN*(02/14/16 3:15 AM) [facility]annCARDIAC QZTPDYE4381-70-53 06:54:0049[facility]annCHEM PANEL 2016-02-14 06:54:0064[facility]CHE[facility] WJWGD4784-16-92 06:54:80245Cweidjjz [facility]annCHEM NRDOI9689-98-61 06:54:99866Kfgufojw [facility]annCHEM RUEDS8013-22-86 06:54:0026[facility]annCHE[facility] JAKLC2914-63-86 06:54:0039[facility]annCHE[facility] JORDK8996-48-47 06:54:0097[facility]CHE[facility] EBLCI3470-98-44 06:54:000.6 [facility] XHZOC4147-55-52 06:54:008.0[facility]annCHEM PANEL 2016-02-14 06:54:000.71[facility]CHE[facility] DEVCV8331-34-50 06:54:0097[facility]annCHE[facility] BRVOU0333-82-24 06:54:0026[facility]CHE[facility] EPWIO9320-45-36 06:54:004.2[facility]CHE[facility] ITIFG3504-99-41 06:54:008.6[facility]CHE[facility] AQACS2424-62-75 06:54:002.2[facility]annCHE[facility] IKVOO1903-07-69 06:54:83830 [facility] YDLZW1278-61-27 06:54:0014[facility]annCHEM PANEL 2016-02-14 06:54:000.4[facility]annCHE[facility] SUKCJ0052-71-75 06:54:005.8[facility]annCHE[facility] TLOSL4759-75-47 06:54:0020[facility]annCHE[facility] FNOMP8279-72-59 06:54:0014.2[facility] QrxdldvHVSPXCXEBY3746-08-03 06:54:000.1[facility] JWHLYEKNHP1255-20-11 06:54:001.0[facility] IsphspzNLJJDIAGPX0122-42-25 06:54:000.1 [facility] DoejxhcXWUTTVDQJW5087-15-78 06:54:007.[facility]annHEMATOLOGY 2016-02-14 06:54:000.6[facility] VrbrxehFAPNYEEVWU9040-81-41 06:54:0010.9[facility] MhrzodnAPGTJMZCLV7077-36-52 06:54:000.5[facility] JnuvagoJVSOLRLKMZ0658-51-52 06:54:001.4[facility] BfppdreVEYVZXUOVX4945-08-02 06:54:00Normal (02/14/16 1:54 AM) [facility] MzljerdQVPBRCZFAL0244-06-77 06:54:0080.7[facility]annHEMATOLOGY 2016-02-14 06:54:000.0[facility] GasdeirLMJOFNSIUE1381-77-48 06:54:0010.6[facility] MmfozccGLVUKZYNTM7323-61-03 06:54:00Normal (02/14/16 1:54 AM)[facility] SLKZPLFTPT0861-32-12 06:54:007.2[facility] AipgyskAJMLDTSKGU1270-36-40 06:54:27886 [facility] WemytjgVLJEBMYHJC5557-58-67 06:54:0084.4[facility]annHEMATOLOGY 2016-02-14 06:54:0037.3[facility] DgyfidjWBQEPMTTPZ2886-06-35 06:54:0033.2[facility] KfpxmhgHAYRWLDVHB6887-45-81 06:54:00* Test Item Value Reference Range Interpretation Comments MCH (test code = MCH) 28.0 pg 27.0-31.0 [facility] GvbdfhzTCQCSRBRNA5216-26-92 06:54:0013.9[facility]annHEMATOLOGY 2016-02-14 06:54:0013.5[facility] OqnnpakISWSBJEHIU5054-51-37 06:54:0012.4[facility] MnsseqpTONGUDXFJG7198-79-98 06:54:004.42[facility]annCARDIAC ENZYMES 2014-05-10 01:00:0067[facility]annCHEM JSDPD0108-03-68 01:00:000.5[facility]annCHEM IBUNL3561-43-54 01:00:005.1[facility]annCHEM WFFNR6736-14-33 01:00:0012[facility]annCHEM GXJFA8351-37-17 01:00:008.7[facility]annCHE[facility] BWPCK8741-39-86 01:00:0081[facility]annCHE[facility] HGPMM3275-05-86 01:00:0085 [facility]CHE[facility] AXFPO9224-05-81 01:00:00<0.1[facility]annCHEM PANEL 2014-05-10 01:00:002.4[facility]annCHE[facility] TFBSE4964-97-99 01:00:0015[facility]annCHE[facility] VLCYV0313-14-46 01:00:007.5[facility]annCHE[facility] SYDBX2528-47-24 01:00:008.2[facility]annCHEM BUHOV8119-64-77 01:00:001.2[facility]annCHEM GJUPE7274-89-40 01:00:36240Jnluvcpp [facility]annCHEM VLQQM3886-82-67 01:00:003.7 [facility]annCHE[facility] RHVCV7617-67-15 01:00:0014[facility]annCHEM PANEL 2014-05-10 01:00:006[facility]annCHE[facility] XDPFI4147-42-99 01:00:67576Vdqdxknu HermannCHEM PTCYZ7699-24-75 01:00:0031[facility]annCHEM FUUMP1470-91-33 01:00:0086[facility]DRUG HNJTVF3483-46-36 01:00:00Negative *NA*(05/09/14 7:00 PM)[facility] TCKMQW5805-15-75 01:00:00See Note 3(05/09/14 7:00 PM)[facility] MLIBFN2046-36-75 01:00:00Negative *NA*(05/09/14 7:00 PM) [facility] DKKUSC2318-93-85 01:00:00Negative *NA*(05/09/14 7:00 PM) [facility] IHBBXD3397-14-21 01:00:00Negative *NA*(05/09/14 7:00 PM) [facility] BIBNLU9847-96-63 01:00:00Negative *NA*(05/09/14 7:00 PM) [facility] HHSHMV5773-02-14 01:00:00Positive *ABN*(05/09/14 7:00 PM) [facility]DR[facility] VVDJCP5808-49-65 01:00:00Negative *NA*(05/09/14 7:00 PM) [facility] MenvnevDUUBSYERTJ5966-19-23 01:00:0035.1[facility]annHEMATOLOGY 2014-05-10 01:00:0011.5[facility] PjtqsjrNITJBMUXJS1538-61-16 01:00:004.37[facility] MptxuxpXXUHCCGRIJ7569-48-02 01:00:0012.4[facility] FsfknvmYIVTQUOKSM3864-02-91 01:00:007.6[facility] BucycheEZMTIDHAUD9681-00-10 01:00:80283V[place] [place] MHIYBPQLVR4506-17-77 01:00:0016.0[facility] ZiamsqaNBQDCHTHWM6920-60-91 01:00:00* Test Item Value Reference Range Interpretation Comments MCH (test code = MCH) 26.3 pg 27.0-31.0 [facility] ZhtexijFXHFKRZJBQ4201-90-59 01:00:0032.8[facility]annHEMATOLOGY 2014-05-10 01:00:0080.3[facility] MbmzlpwCWBOZJQRPP5656-35-42 01:00:001.8[facility] AnlzqgoCNXTUSVOPA8174-38-34 01:00:000.3[facility] MbxkyoiENFKIWMWUL5582-30-18 01:00:000.0[facility] NqpistnBVJUXJEQRJ2911-42-18 01:00:000.4[facility] FASVWHIAIG9247-34-74 01:00:0014.3[facility] FebkafeTYHIUMVARB2538-25-11 01:00:00 2.7[facility] DldszvvVGHQRLJWZA2586-64-39 01:00:003.3[facility]annHEMATOLOGY 2014-05-10 01:00:000.2[facility] AjlvcaoJDNQRSFCMB5683-79-30 01:00:009.9[facility] KvasalzHSELMLPFFV6490-53-85 01:00:0079.5[facility] STOOL 2014-05-10 01:00:00None Seen [...] pH) 7.5 1 5.0-8.0 [facility] VSGVT6686-50-47 01:00:00* Test Item Value Reference Range Interpretation Comments UA Spec Grav (test code = UA Spec Grav) 1.015 1 [facility] DJRIN0704-57-92 01:00:00Small *ABN*(05/09/14 7:00 PM) [facility] QMREC6420-21-08 01:00:00Negative *NA*(05/09/14 7:00 PM) [facility] YKHXN8386-19-82 01:00:00Negative (05/09/14 7:00 PM) [facility] SKHBL7370-63-06 01:00:00Negative *NA*(05/09/14 7:00 PM) [facility] HBWYS3703-58-74 01:00:00Negative (05/09/14 7:00 PM) [facility] IEYQF8352-35-61 01:00:001.0[facility] ZISVY5428-24-90 01:00:00Negative (05/09/14 7:00 PM)[facility] TJBQN7150-12-50 01:00:00Slight Cloudy (05/09/14 7:00 PM)[facility] RGHSX3919-84-84 01:00:00Yellow *NA*(05/09/14 7:00 PM)[facility]annCARDIAC RYKFXBM9629-16-48 19:23:000.9[facility]annCARDIAC YZSDESY4513-96-66 19:23:00 53[facility]annCARDIAC RWAMBNM3327-50-86 19:23:00<0.02[facility]annCARDIAC OTLLENM5881-79-98 19:23:000.5[facility] HermannCHEM IFHGM7227-78-95 19:23:001.5 [facility] GjkfaitSXCJHSYKEOWU0290-55-31 19:23:0025[facility] HermannELECTROLYTES 2014-02-14 19:23:008.6[facility] YuvqrwaYNZAAPGOTVPZ1300-92-72 19:23:0076[facility] XselfvwPCHXFNCEUYFW6444-17-07 19:23:68480Vmmztaad CdmamfpEIHMALHJXPQF1545-23-86 19:23:000.8[facility] TydnlalGRUNICVJIMIS1109-16-12 19:23:008.9[facility] LIAYTEAIDFLO0949-78-90 19:23:0010[facility] LtglvuhFMKOKRXZFTCE7347-43-97 19:23:00 16[facility] WrtfyutGOYKMOMAIZJQ8978-93-66 19:23:29305Qlbbpnnx HermannELECTROLYTES 2014-02-14 19:23:83504Tammggli IdrruvbNZAKCPZENWME3338-17-46 19:23:003.6[facility] VxgqekvFKPTJQBQAANW7331-25-92 19:23:007.5[facility] UgbqysdXWDUBKMQYGPJ7515-52-01 19:23:005.2[facility] PdgjsreINQKDSBZNGCT9496-14-46 19:23:000.4[facility] DIDXDAOMYZXE0714-33-88 19:23:000.5[facility] JcvhzywYGKDAHZQCNFT4384-30-63 19:23:0091[facility] RquofopBJVFXVHLVTBN0733-11-82 19:23:009[facility] BBSLVQAAIXUA6776-47-45 19:23:007[facility] VdhjesdLQDLULKMDWAR8186-36-47 19:23:00 2.3[facility] RlcpipdDGKYKZAMGC7678-39-72 19:23:000.2[facility]annHEMATOLOGY 2014-02-14 19:23:0079.3[facility] CkpyazaGIJYYCQUCV1501-19-90 19:23:000.1[facility] ZemspzvAZWVRJWPVD8050-55-88 19:23:001.3[facility] XkrruizQATJOSATEB3951-88-42 19:23:006.7[facility] LosfelwFGRORORMIL7001-32-04 19:23:0012.6[facility] WCEGFZSFZI1871-05-75 19:23:001.8[facility] WjksjbyAMVAZLVNHT5511-33-90 19:23:00 11.4[facility] MjodcniHATICUUGDT9462-94-57 19:23:001.0[facility]annHEMATOLOGY 2014-02-14 19:23:76310Bppqeake RmiygziWNGXZUIHHY4406-48-24 19:23:007.1[facility] DaeyslbIIITZVUUAI1733-98-27 19:23:0013.7[facility] RpybwakUZUBWSSSLM6277-22-34 19:23:00* Test Item Value Reference Range Interpretation Comments MCH (test code = MCH) 27.6 pg 27.0-31.0 [facility] NfrqabrTOJSBUPVDJ1807-35-27 19:23:0082.7[facility]annHEMATOLOGY 2014-02-14 19:23:0033.4[facility] EjgofxjSTRAKUQBPN5968-37-06 19:23:0014.4[facility] AnmgmgyJILHMYJJWR7232-87-02 19:23:004.25[facility] CjmbyqkLGDGQXWSMB8884-20-31 19:23:0011.7[facility] WsypeuiSZQVLSHWGC3890-96-50 19:23:0035.2[facility] DR[facility] QVQWVJ6274-49-07 19:21:00Negative *NA*(02/14/14 2:21 PM)[facility]annDR[facility] IWRCUG3179-12-88 19:21:00Positive *ABN*(02/14/14 2:21 PM)[facility]annDR[facility] FWNGGF3622-76-38 19:21:00Negative *NA*(02/14/14 2:21 PM)[facility]annDR[facility] BYTDFL8637-08-28 19:21:00Negative *NA*(02/14/14 2:21 PM)[facility]annDR[facility] DLFZGV3085-59-29 19:21:00Negative *NA*(02/14/14 2:21 PM)[facility]annDR[facility] KQAXLW9663-14-02 19:21:00Negative *NA*(02/14/14 2:21 PM)[facility]annDR[facility] MMAHJP4981-32-72 19:21:00Negative *NA*(02/14/14 2:21 PM)[facility]annDR[facility] MRYCPK3331-71-90 19:21:00See Note 3*NA*(02/14/14 2:21 PM)[facility] OASRZ8113-77-09 19:21:001.009[facility] LIPVL3021-23-56 19:21:00Clear (02/14/14 2:21 PM)[facility] TFVRA8989-71-83 19:21:001[facility] NDCRV5720-95-46 19:21:00<1[facility]INE AND JROXS0744-91-21 19:21:00Light Yellow *NA*(02/14/14 2:21 PM)[facility] GZQNA7440-53-54 19:21:006.0[facility] STOOL 2014-02-14 19:21:00Negative *NA*(02/14/14 2:21 PM)[facility] STOOL 2014-02-14 19:21:00Negative (02/14/14 2:21 PM)[facility] STOOL 2014-02-14 19:21:00Negative (02/14/14 2:21 PM)[facility] STOOL 2014-02-14 19:21:00Negative (02/14/14 2:21 PM)[facility]
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
== END 2020-02-01 11:51 | DRG 871 ==
LOC: ER 15:10 → ERHOLD 18:33 → MED/SURG2 01-25 18:02
PROVIDERS: ADMIT Internal Medicine; ATTEND Internal Medicine
PROC: 30233N1 Transfusion of Nonautologous Red Blood Cells into Peripheral Vein, Percutaneous Approach (ICD-10-PCS; principal; 2020-01-27)
PROC: 5A1D70Z Performance of Urinary Filtration, Intermittent, Less than 6 Hours Per Day (ICD-10-PCS; principal; 2020-01-27)
PROC: 05JY3ZZ Inspection of Upper Vein, Percutaneous Approach (ICD-10-PCS; 2020-01-28)
DX: A41.9 Sepsis, unspecified organism (principal); J69.0 Pneumonitis due to inhalation of food and vomit; N18.6 End stage renal disease; G93.41 Metabolic encephalopathy; N17.9 Acute kidney failure, unspecified; I12.0 Hypertensive chronic kidney disease with stage 5 chronic kidney disease or end stage renal disease; N25.81 Secondary hyperparathyroidism of renal origin; G93.89 Other specified disorders of brain; D50.0 Iron deficiency anemia secondary to blood loss (chronic); R65.20 Severe sepsis without septic shock; Z74.01 Bed confinement status; K74.60 Unspecified cirrhosis of liver; Z74.09 Other reduced mobility; M24.576 Contracture, unspecified foot; M24.50 Contracture, unspecified joint; Z11.59 Encounter for screening for other viral diseases; K21.9 Gastro-esophageal reflux disease without esophagitis; Z99.2 Dependence on renal dialysis; Z87.820 Personal history of traumatic brain injury; I69.328 Other speech and language deficits following cerebral infarction; E88.09 Other disorders of plasma-protein metabolism, not elsewhere classified; E87.6 Hypokalemia; D63.1 Anemia in chronic kidney disease; L89.612 Pressure ulcer of right heel, stage 2; D47.3 Essential (hemorrhagic) thrombocythemia
CPT/HCPCS: 36415; 70450; 71045; 74177; 74230; 74470; 76770; 76937; 80048; 80053; 80061; 82140; 83036; 83605; 83735; 84100; 84443; 84484; 85014; 85018; 85025; 85610; 86704; 86705; 86707; 86850; 86900; 86920; 87040; 87340; 87350; 93005; 99285; C1751; C1769; J1644; J2060; J2543; J3370; J7030; J7050; J7512; P9016; Q9967; U0002